=== PATIENT | female | born 1960 | race Caucasian/White ===

== ENCOUNTER 2017-04-24 11:30 | Outpatient (RCR) | payer MEDICAID, SELFPAY ==
--- NOTE | 2017-04-24 13:35 | HP.PTEVAL_ITS ---
Patient's Visit Information CASI APARICIO is a 56 year old F referred to Physical Therapy by LACEY Morales with a diagnosis of DDD, Radic and Spon L/S region. Date of Evaluation: 04/24/17 Physical Therapist: Tamika Garrido - Visit Plan Frequency: 3x /Week Duration: 4 Weeks Plan: 3X/ week for 4 weeks for core stability, LE Strengthening, functional activities, stairs, curb steps with HEP - Subjective Subjective: 2 major back surgeries since 1997. Replaced L2-L5 and then some new parts had to be redone with rods in 2014. She was hoping the 2015 surgery would make her better. She was better for about 1 month and then things started to hurt her. This was done in [facility] in [place]. Pt did her rehab at [facility] and things were going great and she was there for almost 2 months and she got home and did PT at the [facility] in [place]. Things went down hill after that .....she started with LBP all the time and then she started to have upper back and shoulder pain. Pt was living with her elderly mom and going through a divorce and thought this is it...was disgusted with herself. Her PCP sent her to Dr Gregory and they tried a series of shots on the R side at L2 and L3. She reports that they helped. They are looking to do them on the L side as well. Pt has just lost 66 pounds and wants to start walking again. She reports that she wants to build up her stomach muscles. She wants to take care of herself so she can take care of her mom. Pt also wants to build up the muscle around her back. wants her to do exercises here in the clinic and also to develop a HEP. does not want her to hurt her back. Pt reports that her leg pain comes and goes and not very often. Pt used to get odette horses and they seem to be starting up agian. Pt reports that she does not do steps because of the back. Dr wants to look at her c-spine nect. Pt next goal is to quit smoking. Sit to stand able to do without using her arms. Stairs: - Pain back Pain Intensity (Out of 10): 5 - Objective Gait: Walks with WBOS and increase veering. Poor balance. Trunk AROM: Flexion 75%, Ext to neutral, SB B 25%. LE MMT: hip flex B 4-/5, Knee ext B 4/5 , knee flex B 4-/5, hip and B 4-/5, able to do a 1/2 ROM bridge into extension. Patella DTR's 0/3 B. -SLR B. Good HS length. Stairs: up and down stairs recip with increase LOB if the railing is not used. - Goals Goal 1:: I HEP per order Goal Time Frame: 4-6 Weeks Goal 2:: Increase LE strength (hips and knees) to 4/5B Goal Time Frame: 4-6 Weeks Goal 3:: Increase Trunk AROM to 100% flex, 50% ext, SB B to 50% Goal Time Frame: 4-6 Weeks Goal 4:: Decrease pain to 2/10 with ADL's Goal 5:: Up and down stairs recip with a railing with no LOB - Rehabilitation Potential Rehabilitation Potential: Good - Anticipated Interventions Patient/Client Instruction: Educate patient on: Plan of Care For the Purpose of:: To decrease pain, To increase ROM, To improve nutrient delivery to tissue, To improve muscle performance and motor function, To improve ability to perform ADL's, To increase tolerance to activity/condition/ position, To improve performance and independence with ADL's, To improve gait and locomotor functions Therapeutic Exercise to Include: Strength training, Balance training, Body mechanics, Gait and locomotor training, Neuromotor development, Active ROM, Dynamic Lumbar Stabilization, Scapular Strength/Stabilization For the Purpose of:: To decrease pain, To decrease swelling/inflammation, To increase ROM, To improve nutrient delivery to tissue, To improve muscle performance and motor function, To improve ability to perform ADL's, To increase tolerance to activity/condition/position Cryotherapy (ice pack, ice massage): Yes Thermo therapy (hot pack): Yes For the Purpose of:: To decrease pain, To decrease swelling/inflammation, To increase ROM, To improve nutrient delivery to tissue Thank you for the opportunity to evaluate your patient. For Medicare and Medicare HMO plans, please review the plan of care and approve it. It will need to be FAXED BACK to us at [phone] for Medicare purposes. Please let me know if there are questions or concerns regarding this plan of care. Physician Signature: Date:
== END 2017-05-11 19:00 | disposition home or self-care (01) ==
LOC: PT 12:35
PROVIDERS: Family Provider Internal Medicine; PCP Internal Medicine; Visit Provider Nurse Practitioner Family
DX: M54.17 Radiculopathy, lumbosacral region (principal); M51.37 Other intervertebral disc degeneration, lumbosacral region; M47.817 Spondylosis without myelopathy or radiculopathy, lumbosacral region
CPT/HCPCS: 97110; 97161

== ENCOUNTER → 2018-01-01 09:32 | Outpatient (CLI) | payer MEDICAID, SELFPAY ==
[2018-01-01 12:04] LABS: Absolute Lymphocyte Count 2.29 X10^3/ul (0.83-4.51); Absolute Neutrophil Count 4.4 X10^3/uL (2.0-7.7); Basophil# 0.06 X10^3/uL; Basophil% 0.8 % (0-1); Eosinophil# 0.17 X10^3/uL; Eosinophils% 2.3 % (0-5); Hematocrit 42.1 % (37-47); Hemoglobin 14.4 g/dl (12.0-15.0); Lymphocyte # 2.29 X10^3/ul (4.0); Lymphocyte % 30.8 % (19-41); Mean Corp Hgb Conc 34.2 g/gl (32-36); Mean Corpuscular Volume 90.7 fL (81-99); Mean Platelet Vol. 9.9 fl (6.2-12.0); Monocyte# 0.49 X10^3/uL; Monocyte% 6.6 % (0-10); Neutrophil # 4.41 X10^3/uL (2.7-7.7); Neutrophil % 59.4 % (47-70); Platelet Count 251 K/mm3 (150-450); RBC Distribution Width CV 12.5 % (11.6-14.6); RBC Distribution Width SD 40.9 fl (35.1-43.9); Red Blood Count 4.64 M/mm3 (4.2-5.4); White Blood Count 7.4 K/mm3 (4.4-11.0)
[2018-01-01 12:09] LABS: POSITIVE COUNT NO; POSITIVE DIFFERENTIAL NO; POSITIVE MORPHOLOGY NO
[2018-01-01 12:35] LABS: Vitamin D,25 Hydroxy 20.2 ng/mL (29.95-100.01)
[2018-01-01 12:45] LABS: Anion Gap 9 (5-15); BUN 14 mg/dL (7-18); BUN/Creat Ratio 20.8 RATIO (10-20); Calcium,Total 8.7 mg/dL (8.5-10.1); Chloride 88 mmol/L (98-107); Cholesterol 224 mg/dL (200); Creatinine, Serum 0.67 mg/dL (0.55-1.02); EST Glomerular Filtration Rate 96 mL/min (>60); Est Glom Filt Rate - Afr Amer 116 mL/min (>60); Glucose 85 mg/dL (74-106); High Density Lipoprotein 46 mg/dL; Sodium Level 125 mmol/L (136-145); T4 Free Direct 1.25 ng/dL (0.76-1.46); Thyroid Stim Hormone (TSH) 0.48 uIU/mL (0.358-3.74); Triglycerides 202 mg/dL; Very Low Density Lipoprotein 40 mg/dL (5-40)
== END ==
PROVIDERS: Family Provider Internal Medicine; PCP Internal Medicine; Visit Provider Internal Medicine
DX: E87.6 Hypokalemia (principal); R53.83 Other fatigue; E78.5 Hyperlipidemia, unspecified; R68.89 Other general symptoms and signs; E55.9 Vitamin D deficiency, unspecified
CPT/HCPCS: 36415; 80048; 80061; 82306; 84439; 84443; 85025

== ENCOUNTER → 2018-01-05 12:44 | Outpatient (CLI) | payer MEDICAID, SELFPAY ==
--- NOTE | 2018-01-05 12:56 | BD_ITS ---
STUDY: DUAL ENERGY X-RAY ABSORPTIOMETRY / DXA REASON FOR EXAM: Female, 57 years old. The patient is postmenopausal. Loss of height. TECHNIQUE: Bone Mineral Density (BMD) measurements of lumbar spine and bilateral hips were obtained. COMPARISON: None. FINDINGS: Lumbar Spine (L1-L4): g/cm2 (1.352) / T-score (1.6) / Z-score (2.6) Findings are suggestive of normal bone density with a low fracture risk. Left Femur Total: g/cm2 (0.807) / T-score (-1.6) / Z-score (-0.8) Left Femoral Neck: g/cm2 (0.742) / T-score (-2.1) / Z-score (-1.0) Right Femur Total: g/cm2 (0.791) / T-score (-1.7) / Z-score (-0.9) Right Femoral Neck: g/cm2 (0.773) / T-score (-1.9) / Z-score (-0.8) BD/Dexa Bone Density Study IMPRESSION: The patient is considered osteopenic as outlined below according to World [employer] Organization (WHO) criteria with a moderate fracture risk. Reference Information: The T-score is the number of standard deviations above or below the standard which is normal for young adults at their peak bone mineral density. The World Health Organization (WHO) interprets the T-scores as follows: Above -1 Normal bone density Between -1 and -2.5 Osteopenia Equal to / or below -2.5 Osteoporosis As a practical clinical guideline, osteopenia may be graded as follows: Mild -1 through -1.5 Moderate -1.6 through -2.0 Severe -2.1 through -2.4 The Z-score is the number of standard deviations above or below age-matched controls. A Z-score of less than -1.5 would be considered abnormal. References: 1. NIH Osteoporosis and Related Bone Diseases http://www.osteo.org 2. International Society for Clinical Densitometry http://www.iscd.org 3. National Osteoporosis Foundation http://www.nof.org Electronically Signed: Kody Lakhani MD at 9:58 EDT Tel [phone], Service support ,
== END ==
PROVIDERS: Family Provider Internal Medicine; PCP Internal Medicine; Visit Provider Internal Medicine
DX: E55.9 Vitamin D deficiency, unspecified (principal); Z78.0 Asymptomatic menopausal state
CPT/HCPCS: 77080

== ENCOUNTER → 2018-01-26 13:41 | Outpatient (CLI) | payer MEDICAID, SELFPAY ==
[2018-01-26 15:56] LABS: Anion Gap 10 (5-15); BUN 19 mg/dL (7-18); BUN/Creat Ratio 26.7 RATIO (10-20); Calcium,Total 9.6 mg/dL (8.5-10.1); Chloride 92 mmol/L (98-107); Creatinine, Serum 0.71 mg/dL (0.55-1.02); EST Glomerular Filtration Rate 90 mL/min (>60); Est Glom Filt Rate - Afr Amer 109 mL/min (>60); Glucose 52 mg/dL (74-106); Sodium Level 130 mmol/L (136-145)
== END ==
PROVIDERS: Family Provider Internal Medicine; PCP Internal Medicine; Visit Provider Internal Medicine
DX: E87.1 Hypo-osmolality and hyponatremia (principal)
CPT/HCPCS: 36415; 80048

== ENCOUNTER → 2018-01-29 21:25 | Outpatient (CLI) | payer MEDICAID, SELFPAY | PROVIDERS: Family Provider Internal Medicine; PCP Internal Medicine; Visit Provider Internal Medicine | DX: G47.10 Hypersomnia, unspecified (principal); R53.83 Other fatigue | CPT/HCPCS: 95810 ==

== ENCOUNTER → 2018-01-30 11:01 | Outpatient (CLI) | payer MEDICAID, SELFPAY ==
--- NOTE | 2018-01-30 09:46 | CT_ITS ---
STUDY: LOW DOSE CT LUNG CANCER SCREENING REASON FOR EXAM: Female, 57 years old. Screening for lung cancer RADIATION DOSAGE (If Supplied By Facility): CTDIvol = ( 3.02 ) mGy, DLP = ( 102.32 ) mGycm TECHNIQUE: No contrast was administered. Low dose technique was utilized (average mAS-38 and kVp 120). 1.25 mm axial source images with a slice interval of 1.25-mm were reconstructed in lung windows. 2.5 mm axial source images with a slice interval of 2.5-mm were reconstructed in lung windows. 5.0 mm axial source images with a slice interval of 5.0-mm were reconstructed in soft tissue windows. Nodule measured using lung windows on PACS and/or independent workstation with automated measurement of minimum and maximum diameter. Nodule measurement reported as average diameter rounded to the nearest whole number. Growth is defined as an increase ins size of greater than 1.5 mm. COMPARISON: None. NODULES: Segmental atelectasis in the lung bases. There is no demonstrated pleural abnormality. Normal heart and pericardium. Normal mediastinum. Normal hilar regions. Normal unenhanced pulmonary arteries. Normal aorta arch and descending thoracic aorta. There are multi-level degenerative changes of the thoracic spine. There is no demonstrated abnormality of the visualized upper abdomen. CT/Low Dose CT Lung Screening IMPRESSION: Lung-RADS category 2. Recommendation: Routine screening CT scan in one year. IMPORTANT NOTES FOR USE: ACR Lung-RADS Version 1.0 Assessment Categories Release Date: November 07, 2013 Category: Coded 0-4 bases on nodule(s) with highest degree of suspicion. Negative screen is defined as categories 1 and 2; a positive screen is defined as categories 3 and 4. Category 3 and 4A nodules that are unchanged on interval CT should be coded as category 2, and individuals returned to screening in 12 months. Category 4X: Category 3 or 4 nodules with additional imaging findings that increase the suspicion of lung cancer, such as spiculation, GGN that doubles in size in 1 year, enlarged lymph notes, etc. Category Modifiers: S (significant finding unrelated to lung cancer) and C (prior history of treated lung cancer) may be added to the 0-4 Lung-RADS Electronically Signed: Komal Leon MD at 6:36 EDT Tel , Service support ,
== END ==
PROVIDERS: Family Provider Internal Medicine; PCP Internal Medicine; Visit Provider Internal Medicine
DX: F17.210 Nicotine dependence, cigarettes, uncomplicated (principal)
CPT/HCPCS: G0297

== ENCOUNTER → 2018-03-09 15:03 | Outpatient (CLI) | payer MEDICAID, SELFPAY ==
[2018-03-09 17:05] LABS: Anion Gap 10 (5-15); BUN 9 mg/dL (7-18); BUN/Creat Ratio 13.8 RATIO (10-20); Calcium,Total 8.8 mg/dL (8.5-10.1); Chloride 100 mmol/L (98-107); Creatinine, Serum 0.65 mg/dL (0.55-1.02); EST Glomerular Filtration Rate 99 mL/min (>60); Est Glom Filt Rate - Afr Amer 120 mL/min (>60); Glucose 95 mg/dL (74-106); Potassium 3.5 mmol/L (3.5-5.1); Sodium Level 138 mmol/L (136-145)
== END ==
PROVIDERS: Family Provider Internal Medicine; PCP Internal Medicine; Visit Provider Internal Medicine
DX: E87.1 Hypo-osmolality and hyponatremia (principal)
CPT/HCPCS: 36415; 80048

== ENCOUNTER → 2018-05-03 14:50 | Outpatient (CLI) | payer MEDICAID, SELFPAY ==
--- NOTE | 2018-05-03 14:52 | RAD_ITS ---
STUDY: X-RAY CHEST REASON FOR EXAM: Female, 57 years old. Chest pain. Cough. History of recent pneumonia. TECHNIQUE: PA and lateral views of the chest. COMPARISON: Comparison is made with prior study dated July 01, 2017. FINDINGS: Minimal degree of increased markings in the lingular segment of the left upper lobe suggests underlying atelectasis. There is no demonstrated pleural abnormality. Normal size heart. Normal mediastinum and shyla. Normal visualized pulmonary arteries. There is atherosclerotic calcification of the aortic arch with tortuosity. There are diffuse degenerative changes of the visualized thoracic spine. Normal visualized ribs, clavicles, and shoulders. There is no demonstrated abnormality of the visualized soft tissue structures of the upper abdomen. RAD/Chest PA and Lateral IMPRESSION: Mild increased markings in the lingular segment of the left upper lobe suggestive of linear atelectasis. Electronically Signed: Kody Lakhani MD at 15:34 EDT Tel [phone], Service support ,
== END ==
PROVIDERS: Family Provider Internal Medicine; PCP Internal Medicine; Referring Provider Nurse Practitioner Family; Visit Provider Nurse Practitioner Family
DX: R05 Cough (principal); R07.9 Chest pain, unspecified; Z87.01 Personal history of pneumonia (recurrent)
CPT/HCPCS: 71046

== ENCOUNTER → 2018-05-21 12:54 | Outpatient (CLI) | payer MEDICAID, SELFPAY | PROVIDERS: Family Provider Internal Medicine; PCP Internal Medicine; Referring Provider Anesthesiology Pain Medicine | DX: R69 Illness, unspecified (principal) ==

== ENCOUNTER → 2018-05-28 13:57 | Outpatient (CLI) | payer MEDICAID, SELFPAY ==
--- NOTE | 2018-05-28 13:59 | CT_ITS ---
STUDY: CT BRAIN WITHOUT CONTRAST REASON FOR EXAM: Female, 57 years old. Headache after a fall RADIATION DOSAGE (If Supplied By Facility): CTDIvol = ( 44.99 ) mGy, DLP = ( 796.11 ) mGycm TECHNIQUE: Transaxial CT imaging of the brain was performed without administration of intravenous contrast material. Individualized dose optimization techniques were used for this CT. COMPARISON: 06/29/2017 FINDINGS: Normal soft tissue structures. Normal calvarium. Normal size ventricles and extra-axial spaces for the patient's age. Normal white matter tracts of the cerebral hemispheres. Normal basal ganglia and thalami. Normal brainstem. Normal cerebellum. There is no intracranial hemorrhage. There are no findings of an acute ischemic infarction. Normal visualized paranasal sinuses. CT/Brain/Head without Contrast IMPRESSION: Normal unenhanced CT scan of the brain. Electronically Signed: Richard Gates MD at 14:34 EST , Service support ,
== END ==
PROVIDERS: Family Provider Internal Medicine; PCP Internal Medicine; Referring Provider Nurse Practitioner Family; Visit Provider Nurse Practitioner Family
DX: S00.93XA Contusion of unspecified part of head, initial encounter (principal); R40.20 Unspecified coma; W19.XXXA Unspecified fall, initial encounter; Z87.898 Personal history of other specified conditions
CPT/HCPCS: 70450

== ENCOUNTER 2018-07-18 11:53 | Emergency (ER) | payer MEDICAID, SELFPAY ==
[2018-06-16 09:25] VITALS: BMI 31.6
[2018-07-18 11:54] VITALS: BP 157/83; PULSE 73; RESP 18; TEMP 36.8; O2SAT 94; BMI 30.5
[2018-07-18 11:56] VITALS: RESP 18
--- NOTE | 2018-07-18 12:12 | ED.VISSUMM ---
- ER Visit Summary Date of Service: 07/18/18 Chief Complaint: [] Low back pain for a week after fall History of Present Illness: The patient is a 58 F [] chronic history of back pain prior lumbar back surgery currently under pain management, on controlled substances for her pain indicates she fell about a week ago landing direct in her buttock since then has had exacerbation of her chronic pain no new symptoms no signs of cauda equina no numbness weakness paresthesias no bowel or bladder complaints she indicates her [place] and other medication she is prescribed her pain management physician simply are not helping and she came in for evaluation she has no head neck chest or abdominal pain no history of kidney liver disease, she does not take nonsteroidals chronically as it causes stomach upset but she is able to take Tylenol and Toradol nonnarcotic medication Physical Examination: [] Vital signs are within normal range General, no distress resting comfortably HEENT is generally unremarkable The neck is supple no adenopathy Cardiovascular, regular rate and rhythm Lungs, clear bilateral Abdomen, soft nontender, she has a healed incision to the lumbar back she complains diffusely of lumbar back pain no bruising contusion Extremities, no clubbing cyanosis or edema Neurologic, awake alert answering questions appropriately moving all 4 extremities full range of motion no numbness weakness or paresthesias no sign of cauda equina Test Results: [] Emergency Department Course and Treatment: [] Long conversation with the patient this is an acute exacerbation of her chronic condition there are no new symptoms by her history she understands that we cannot further manage her pain with controlled substances to the emergency department, she agrees to obtain lumbar spine x-rays and she will take Toradol which she is taken in the past short-term, Tylenol Studies are unremarkable she will follow-up her pain management all other outpatient providers Treatment Plan: [] Lumbar spine x-ray showed nothing acute see those reports given all the above the plan is detailed above and she will follow-up with her physicians Disposition: [] Home stable Impression: [] Acute recurrent lumbar back pain, history of lumbar back pain prior lumbar back surgery, This note was generated with Tachyusation software. It may contain incorrect words, spelling, and punctuation that were not noted in review of the chart prior to signing ED Disposition - Plan for ED Patient: Chief Complaint: Back Referrals: Nick Lindsey MD [Primary Care Provider] -
--- NOTE | 2018-07-18 12:16 | ED.DCSUM_ITS ---
- ER Visit Summary Date of Service: 07/18/18 Chief Complaint: [] Low back pain for a week after fall History of Present Illness: The patient is a 58 F [] chronic history of back pain prior lumbar back surgery currently under pain management, on controlled substances for her pain indicates she fell about a week ago landing direct in her buttock since then has had exacerbation of her chronic pain no new symptoms no signs of cauda equina no numbness weakness paresthesias no bowel or bladder complaints she indicates her [place] and other medication she is prescribed her pain management physician simply are not helping and she came in for evaluation she has no head neck chest or abdominal pain no history of kidney liver disease, she does not take nonsteroidals chronically as it causes stomach upset but she is able to take Tylenol and Toradol nonnarcotic medication Physical Examination: [] Vital signs are within normal range General, no distress resting comfortably HEENT is generally unremarkable The neck is supple no adenopathy Cardiovascular, regular rate and rhythm Lungs, clear bilateral Abdomen, soft nontender, she has a healed incision to the lumbar back she complains diffusely of lumbar back pain no bruising contusion Extremities, no clubbing cyanosis or edema Neurologic, awake alert answering questions appropriately moving all 4 extremities full range of motion no numbness weakness or paresthesias no sign of cauda equina Test Results: [] Emergency Department Course and Treatment: [] Long conversation with the patient this is an acute exacerbation of her chronic condition there are no new sympt oms by her history she understands that we cannot further manage her pain with controlled substances to the emergency department, she agrees to obtain lumbar spine x-rays and she will take Toradol which she is taken in the past short- term, Tylenol Studies are unremarkable she will follow-up her pain management all other outpatient providers Treatment Plan: [] Lumbar spine x-ray showed nothing acute see those reports given all the above the plan is detailed above and she will follow-up with her physicians Disposition: [] Home stable Impression: [] Acute recurrent lumbar back pain, history of lumbar back pain prior lumbar back surgery, This note was generated with Incuronation software. It may contain incorrect words, spelling, and punctuation that were not noted in review of the chart prior to signing ED Disposition - Plan for ED Patient: Chief Complaint: Back Referrals: Nick Lindsey MD [Primary Care Provider] -
--- NOTE | 2018-07-18 12:16 | ED.DEP ---
ED Disposition - Plan for ED Patient: Chief Complaint: Back Instructions: ED Sprain Strain Lumbar Referrals: Nick Lindsey MD [Primary Care Provider] - Additional Instructions: Follow-up with all of her outpatient providers, follow-up with your pain management plan
[2018-07-18] MEDS: Ketorolac 60 MG/2 ML Vial IM (12:28)
[2018-07-18] MEDS: Acetaminophen 500 MG Tablet 1000 MG PO (12:29)
--- NOTE | 2018-07-18 12:30 | RAD_ITS ---
STUDY: X-RAY - LUMBAR SPINE REASON FOR EXAM: Female, 58 years old. Status post fall, history of spine surgery TECHNIQUE: 3 view(s) of the lumbar spine were obtained. COMPARISON: 02/11/2014 FINDINGS: There is straightening of the normal lumbar lordosis. There is no substantial scoliosis. There is a normal alignment of the vertebrae. Disc space narrowing at L2-L3 with endplate sclerosis is progressive since 2013. Posterior fusion hardware with bilateral pedicular screws with multilevel laminectomies with additional placement of hardware since 2013. No compression fracture is seen. There is atherosclerotic calcification of the abdominal aorta without a demonstrated aneurysm. RAD/Lumbar Spine 2 or 3 Views IMPRESSION: No demonstrated compression fracture. Degenerative and operative changes. Electronically Signed: Edwin Porras MD at 12:55 EST , Service support ,
[2018-07-18 13:49] VITALS: BP 136/77; PULSE 67; RESP 16; O2SAT 95
== END 2018-07-18 14:04 | disposition home or self-care (01) ==
PROVIDERS: Emergency Provider Emergency Medicine; Family Provider Internal Medicine; PCP Internal Medicine
DX: M54.5 Low back pain (principal); G89.29 Other chronic pain; W19.XXXA Unspecified fall, initial encounter; Y93.9 Activity, unspecified; Y92.9 Unspecified place or not applicable; Z98.890 Other specified postprocedural states; Z79.899 Other long term (current) drug therapy
CPT/HCPCS: 72100; 96372; 99284

== ENCOUNTER 2018-08-16 08:14 | Day surgery (SDC) | payer MEDICAID, SELFPAY ==
[2018-08-11 14:07] VITALS: BMI 30.5
[2018-08-16 08:47] VITALS: BP 113/76; PULSE 72; RESP 16; TEMP 36.4; O2SAT 96; BMI 28.7
[2018-08-16] MEDS: Bupivacaine 0.25% 30 ML Vial (09:46)
[2018-08-16] MEDS: MethylPREDNISolone Acetate 80 MG/ML Vial (09:46)
--- NOTE | 2018-08-16 09:50 | RAD_ITS ---
PROCEDURE: Caudal block. DATE OF EXAMINATION: August 16, 2018. INDICATION: Female, 58 years old. Chronic back pain. FLUOROSCOPY TIME (if supplied): (0:08) minutes/seconds. 2 intraoperative images were obtained. Intraoperative imaging provided for caudal block. The needle is seen along the posterior midportion of the sacrum. RAD/Fluor Guidance for Spine Inj IMPRESSION: The spinal needle is seen along the posterior midportion of the sacrum. Electronically Signed: Kody Lakhani MD at 11:23 EST , Service support ,
[2018-08-16 09:58] VITALS: BP 113/76; BP 138/68; PULSE 76; RESP 16; TEMP 36.8; O2SAT 93
[2018-08-16 10:00] VITALS: BP 113/76; BP 152/63; PULSE 75; RESP 16; O2SAT 93
[2018-08-16 10:05] VITALS: BP 113/76; BP 137/80; PULSE 75; RESP 16; O2SAT 92
[2018-08-16 10:11] VITALS: BP 113/76; BP 156/80; PULSE 72; RESP 16; TEMP 36.6; O2SAT 92
--- NOTE | 2018-08-16 11:18 | OP.PCM_ITS ---
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 (2) Degeneration of intervertebral disc of lumbosacral region Status: Chronic (3) Radiculopathy of lumbosacral region Status: Chronic Report of Operation Date of Procedure: 08/16/18 Pre-Operative Diagnosis: Lumbosacral radiculopathy, lumbosacral degenerative disc disease, lumbosacral spinal stenosis, postlaminectomy syndrome of the lumbar spine Post-Operative Diagnosis: Lumbosacral radiculopathy, lumbosacral degenerative disc disease, lumbosacral spinal stenosis, postlaminectomy syndrome of the lumbar spine Surgery/Procedure Performed:: Diagnostic/therapeutic caudal epidural steroid injection Description of Surgical Findings:: PROCEDURE: Diagnostic/therapeutic caudal epidural steroid injection PREOPERATIVE DIAGNOSIS: Lumbosacral radiculopathy, lumbosacral degenerative disc disease, lumbosacral spinal stenosis, postlaminectomy syndrome of the lumbar spine POSTOPERATIVE DIAGNOSIS: Lumbosacral radiculopathy, lumbosacral degenerative disc disease, lumbosacral spinal stenosis, postlaminectomy syndrome of the lumbar spine ANESTHESIA: MAC COMPLICATIONS: None BLOOD LOSS: Minimal PROCEDURE IN DETAIL: History and physical today was reviewed. Risks and benefits of the procedure were explained. The patient understood, agreed to our procedure, and informed consent was obtained. IV inserted per routine protocol. The patient was taken to the operating room, placed in a prone position with a pillow positioned underneath the abdomen. The lower back and tailbone area was prepped and draped in a sterile fashion using iodine x3 under fluoroscopy guidance on the lateral view the caudal space was identified the skin and subcutaneous tissue anesthetized approximately 3 cc of 1% lidocaine using a 25-gauge regular needle under direct visualization fluoroscopy in a lateral view using a 22-gauge 3-1/2 inch spinal needle the needle was advanced via the skin through the sacral hiatus tip of the needle passed through the sacrococcygeal ligament advanced approximately S4 area after negative aspiration for blood or CSF a total of 3 cc of contrast were injected to confirm correct placement of the needle as well as cephalad spread the spread was followed to approximately L5 area after confirmation of AP as well as latera l view and repeated negative aspiration a total of 15 cc of preservative-free 0.125% Marcaine with 80 mg of Depo-Medrol were injected easily. The needles were then removed intact. The patient experienced no signs or symptoms intrathecal, intravascular injection. The patient experienced no paraesthesia. The procedure was completed without any apparent difficult, any complication. The patient appeared to tolerate well. ASSESSMENT AND PLAN: This is a 58-year-old female with lumbosacral radiculopathy lumbosacral degenerative disc disease lumbosacral spinal stenosis, postlaminectomy syndrome of the lumbar spine status post diagnostic/therapeutic caudal epidural steroid injection patient would continue her current medications the patient will follow in approximately 2 weeks for possible repeat of the procedure if indicated.
== END 2018-08-16 10:41 | disposition home or self-care (01) ==
LOC: SDC 08:15 → AC 08:17
PROVIDERS: Family Provider Internal Medicine; PCP Internal Medicine; Referring Provider Anesthesiology Pain Medicine; Visit Provider Anesthesiology Pain Medicine
PROC: 3E0S3BZ Introduction of Anesthetic Agent into Epidural Space, Percutaneous Approach (ICD-10-PCS; CPT 62282; principal; 2018-08-16 09:45)
DX: M96.1 Postlaminectomy syndrome, not elsewhere classified (principal); M51.17 Intervertebral disc disorders with radiculopathy, lumbosacral region; M48.07 Spinal stenosis, lumbosacral region; M47.817 Spondylosis without myelopathy or radiculopathy, lumbosacral region; M46.96 Unspecified inflammatory spondylopathy, lumbar region; M46.1 Sacroiliitis, not elsewhere classified; M43.16 Spondylolisthesis, lumbar region; I10 Essential (primary) hypertension; J45.909 Unspecified asthma, uncomplicated; G40.909 Epilepsy, unspecified, not intractable, without status epilepticus; K21.9 Gastro-esophageal reflux disease without esophagitis; I82.0 Budd-Chiari syndrome; Z87.19 Personal history of other diseases of the digestive system; Z98.1 Arthrodesis status; Z79.891 Long term (current) use of opiate analgesic; Z79.899 Other long term (current) drug therapy; F17.210 Nicotine dependence, cigarettes, uncomplicated
CPT/HCPCS: 01992; 62323; 64483; 77003; J7120; J3490

== ENCOUNTER → 2018-10-04 13:48 | Outpatient (CLI) | payer MEDICAID, SELFPAY ==
[2018-09-29 15:37] VITALS: BMI 35.9
[2018-10-04 16:01] LABS: Anion Gap 5 (5-15); BUN 15 mg/dL (7-18); BUN/Creat Ratio 16.3 RATIO (10-20); Calcium,Total 8.8 mg/dL (8.5-10.1); Chloride 92 mmol/L (98-107); Creatinine, Serum 0.92 mg/dL (0.55-1.02); EST Glomerular Filtration Rate 67 mL/min (>60); Est Glom Filt Rate - Afr Amer 81 mL/min (>60); Glucose 79 mg/dL (74-106); Potassium 4.6 mmol/L (3.5-5.1); Sodium Level 124 mmol/L (136-145)
== END ==
PROVIDERS: Family Provider Internal Medicine; PCP Internal Medicine; Referring Provider Internal Medicine; Visit Provider Internal Medicine
DX: I10 Essential (primary) hypertension (principal)
CPT/HCPCS: 36415; 80048

== ENCOUNTER → 2018-10-05 07:38 | Outpatient (CLI) | payer MEDICAID, SELFPAY ==
[2018-09-17 10:41] VITALS: BMI 28.7
[2018-09-29 15:37] VITALS: BMI 35.9
--- NOTE | 2018-10-05 07:39 | CT_ITS ---
STUDY: CT MAXILLOFACIAL SINUSES REASON FOR EXAM: Female, 58 years old. Sinusitis RADIATION DOSAGE (If Supplied By Facility): CTDIvol = ( 33.45 ) mGy, DLP = ( 780.55 ) mGycm TECHNIQUE: The patient was scanned in a multi detector CT scanner. High resolution axial imaging was performed without the administration of intravenous contrast material. Sagittal and coronal images were reconstructed. Individualized dose optimization techniques were used for this CT. COMPARISON: None. FINDINGS: FRONTAL SINUSES: Normal aeration, without mucosal inflammatory disease. ETHMOIDAL SINUSES: Normal aeration, without mucosal inflammatory disease. MAXILLARY SINUSES: Normal aeration, without mucosal inflammatory disease. SPHENOIDAL SINUSES: Normal aeration, without mucosal inflammatory disease. There is patency of the bilateral maxillary infundibuli with normal uncinate processes, ethmoid bullae, and hiatus semilunaris. Left-sided nancy bullosa. Normal bilateral inferior turbinates. Normal midline nasal septum. There is patency of the bilateral nasal airways. The visualized osseous structures are normal. The visualized bilateral orbital contents are normal. CT/Sinus/Facial Bone IMPRESSION: No sinusitis. A left-sided nancy bullosa Electronically Signed: Sohan Tejada MD at 6:10 EDT Tel , Service support ,
== END ==
PROVIDERS: Family Provider Internal Medicine; PCP Internal Medicine; Referring Provider Otolaryngology; Visit Provider Otolaryngology
DX: J32.0 Chronic maxillary sinusitis (principal)
CPT/HCPCS: 70486

== ENCOUNTER 2018-10-20 13:30 | Outpatient (RCR) | payer MEDICAID, SELFPAY ==
[2018-09-17 10:41] VITALS: BMI 28.7
--- NOTE | 2018-09-21 12:31 | HP.PTEVAL ---
Patient's Visit Information CASI APARICIO is a 58 year old F referred to Physical Therapy by Demetrius Juárez MD with a diagnosis of LUMBAR DDD, SPONYLOSIS, ARTHROPATHY AND POST LAMI SYNDROME. Date of Evaluation: 09/21/18 Physical Therapist: Falguni Palma PT, Cert MDT - Visit Plan Frequency: 2-3x /Week Duration: 4-6 Weeks Plan: AQUATIC THERAPY FOR PAIN RELIEF, POSTURE CORRECTION/STRENGTHENING, INSTRUCTION IN APPROPRIATE BODY MECHANICS AND ACTIVITY MODIFICATIONS. DLS STARTING WITH A NEUTRAL SPINE PROGRESSING ROM TOLERATED. GRAHAM LE ROM, STRETCHING AND STRENGTHENING. HEP INSTRUCTION. 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 Disability: YES. Present symptoms: LOW BACK PAIN. GRAHAM LE PAIN TO FEET BUT NOT NUMBNESS AND TINGLING. Present since: YEARS. Pain Scale: Worst - 10/10 Least - 7/10. Currently: 03/22. Commenced as a result of: NO APPARENT REASON. Symptoms at onset: LOW BACK. Worse: EVERYTHING. Better: RESTING IN LYING ON RIGHT SIDE. Disturbed sleep: YES. Previous history/Previous treatment: LUMBAR FUSION DR. WALLACE 1998, SECOND BACK SURGERY [address] [facility] - TOOK OLD HARDWARE OUT AND FUSED FROM APPROX L1 TO L5. PHYSICAL THERAPY. PAIN MGMT - LAST INJECTION WAS LAST MONTH AND PATIENT REPORTS IT ONLY HELPED ABOUT 2 DAYS. Coughing/sneezing/straining: POSITIVE. Gait: PATIENT REPORTS IT HURTS TO WALK. STATES SHE REFUSES TO USE AN AD AT THIS TIME BECAUSE SHE FEELS THAT IS GIVING UP. Difficulty initiating urinatin: YES - FAMILY PHYSICIAN IS AWARE. Accidents: NO. Unexplained weight loss: NO. Imaging: PATIENT NOT SURE WHEN MOST RECENT. PMH/Recent major surgery: SEE BELOW. PLOF (Prior Level of Function): PATIENT REPORTS SHE WAS ABLE TO SHOWER, DRY OFF AND GO TO THE BATHROOM WITH LESS PAIN ABOUT 3 MONTHS AGO. SHE ALSO REPORTS SHE WAS WALKING BETTER IN JULY THAN SHE IS NOW. - Objective Sitting/Standing Posture: POOR. Lordosis: REDUCED. Lateral shift: NO. Relevant shift: N/A. Active Correction of posture: WORSE. Other Observations: INDEP VERY ANTALGIC GAIT INTO PT WITH SLOW GUARDED CADANCE, SHORT GRAHAM STRIDE LENGTH, INCREASED TRUNK FLEX AND PATIENT HAS TO STOP SEVERAL TIMES BEFORE MAKING IT BACK TO THE TREATMENT ROOM WHICH IS ABOUT 300 FEET FROM THE LOBBY. NO ASSISTIVE DEVICE - PATIENT REFUSING AT THIS TIME BECAUSE SHE STATES SHE DOESN'T WANT TO GIVE UP AND END UP IN A LONG-TERM. INDEP SIT TO STAND WITHOUT UE ASSIST. Motor deficit: GRAHAM LE WEAKNESS: HIPS 3+ TO 4-/5, KNEES 4-/5, ANKLES 4/5. Sensory deficit: DECREASED RIGHT LATERAL THIGH. ROM deficit: TIGHT GRAHAM HS'S, HIP FLEXORS AND GASTROC SOLEUS COMPLEX'S. Reflexes: UNABLE TO ELICIT GRAHAM LE'S. Dural Signs: POSITIVE GRAHAM LE'S. Lumbar mvmt loss: flex - MOD TO ARTHUR. ext - ARTHUR. R SG - ARTHUR. L SG - MAN. Core strength: POOR. Palpation: PATIENT IS VERY TENDER WITH LIGHT PALPATION THROUGHOUT THE ENTIRE LOWER THORACIC, LUMBAR, SACRAL, HIP AND PROXIMAL THIGH REGIONS - Goals Goal 1:: DECREASE C/O BACK AND LE SX'S. Goal Time Frame: 4-6 Weeks Goal 2:: IMPROVE PERSONAL CARE, LIFTING, WALKING, SITTING, STANDING, SLEEP, SOCIAL LIFE, TRAVELING AND HOMEMAKING FUNCTION Goal Time Frame: 4-6 Weeks Goal 3:: INSTRUCT IN PROPHYLAXIS Goal Time Frame: 4-6 Weeks - Rehabilitation Potential Rehabilitation Potential: Fair - Anticipated Interventions Patient/Client Instruction: Educate patient on: Condition, Plan of Care, Risk Factors, Benefits of Fitness Program For the Purpose of:: To improve self management Therapeutic Exercise to Include: Strength training, Body mechanics, Postural training, Gait and locomotor training, In an aquatic setting, Dynamic Lumbar Stabilization For the Purpose of:: To decrease pain, To increase ROM, To improve muscle performance and motor function, To increase tolerance to activity/condition/position, To improve ability of physical actions for home/community/work/leisure, To improve gait and locomotor functions Thank you for the opportunity to evaluate your patient. For Medicare and Medicare HMO plans, please review the plan of care and approve it. It will need to be FAXED BACK to us at [phone] for Medicare purposes. For Medicare only, by signing this I certify the plan of care. Please let me know if there are questions or concerns regarding this plan of care. Physician Signature: Date:
--- NOTE | 2018-12-20 16:42 | HP.PT.NRP ---
HP - Discharge Summary (1) - Patient Information CASI APARICIO was seen in my office for initial evaluation on 09/21/18. The following Plan of Care was established for this patient: Initial Frequency: 2-3x /Week Initial Duration: 4-6 Weeks - Anticipated Interventions Patient/Client Instruction: Educate patient on: Condition, Plan of Care, Risk Factors, Benefits of Fitness Program For the Purpose of:: To improve self management Therapeutic Exercise to Include: Strength training, Body mechanics, Postural training, Gait and locomotor training, In an aquatic setting, Dynamic Lumbar Stabilization For the Purpose of:: To decrease pain, To increase ROM, To improve muscle performance and motor function, To increase tolerance to activity/condition/position, To improve ability of physical actions for home/community/work/leisure, To improve gait and locomotor functions This patient was last seen in our office 10/20/18. Pertinent comments regarding their Physical therapy will appear below: This patient has not returned to Physical Therapy and is appropriate to return to MD for further follow-up as needed. At this point I will be discontinuing this patient from physical therapy. I would be happy to see this patient again in the future if found appropriate by the physician. Thank you! Fagluni Palma, PT, Cert MDT
== END 2018-10-20 19:00 | disposition home or self-care (01) ==
LOC: PT 13:30
PROVIDERS: Family Provider Internal Medicine; PCP Internal Medicine; Referring Provider Anesthesiology Pain Medicine; Visit Provider Anesthesiology Pain Medicine
DX: M54.17 Radiculopathy, lumbosacral region (principal); M51.37 Other intervertebral disc degeneration, lumbosacral region; M47.817 Spondylosis without myelopathy or radiculopathy, lumbosacral region; M46.96 Unspecified inflammatory spondylopathy, lumbar region; M96.1 Postlaminectomy syndrome, not elsewhere classified
CPT/HCPCS: 97113; 97162; 97530

== ENCOUNTER → 2018-11-17 | Outpatient (CLI) | payer MEDICAID, SELFPAY ==
[2018-10-15 14:56] VITALS: BMI 35.9
[2018-11-17 12:33] LABS: Anion Gap 8 (5-15); BUN 10 mg/dL (7-18); BUN/Creat Ratio 12.3 RATIO (10-20); Calcium,Total 8.9 mg/dL (8.5-10.1); Chloride 99 mmol/L (98-107); Creatinine, Serum 0.81 mg/dL (0.55-1.02); EST Glomerular Filtration Rate 77 mL/min (>60); Est Glom Filt Rate - Afr Amer 93 mL/min (>60); Glucose 132 mg/dL (74-106); Potassium 4.5 mmol/L (3.5-5.1); Sodium Level 135 mmol/L (136-145)
== END | disposition home or self-care (01) ==
LOC: BIMLAB 11:14
PROVIDERS: Family Provider Internal Medicine; PCP Internal Medicine; Visit Provider Internal Medicine
DX: E87.1 Hypo-osmolality and hyponatremia (principal)
CPT/HCPCS: 36415; 80048

== ENCOUNTER 2018-11-29 05:52 | Day surgery (SDC) | payer MEDICAID, SELFPAY ==
[2018-10-15 14:56] VITALS: BMI 35.9
[2018-11-29] VITALS (9 sets, daily range): BP systolic 90–109; BP diastolic 56–78; PULSE 64–80; RESP 16–18; TEMP 36.6–36.8; O2SAT 92–97; BMI 29.5
--- NOTE | 2018-11-29 07:30 | RAD_ITS ---
PROCEDURE: Right L3-S1 radiofrequency ablation. DATE OF EXAMINATION: November 29, 2018 INDICATION: Female, 58 years old. Chronic back pain. FLUOROSCOPY TIME (if supplied): (0:24) minutes/seconds Intraoperative imaging provided for right L3-S1 radiofrequency ablation. RAD/L/S Spine Min 4 Views IMPRESSION: Intraoperative fluoroscopy provided for right L3 S1 radiofrequency ablation. Electronically Signed: Kody Lakhani, at 10:57 EDT , Service support ,
[2018-11-29] MEDS: Bupivacaine 0.25% 30 ML Vial (07:49)
[2018-11-29] MEDS: MethylPREDNISolone Acetate 80 MG/ML Vial (07:49)
--- NOTE | 2018-11-29 08:11 | OP.PCM_ITS ---
Problem List (1) Spondylosis of lumbosacral region without myelopathy or radiculopathy Status: Chronic (2) Lumbar facet arthropathy Status: Chronic (3) Degeneration of intervertebral disc of lumbosacral region Status: Chronic Report of Operation Date of Procedure: 11/29/18 Pre-Operative Diagnosis: Lumbosacral spondylosis, lumbosacral degenerative disc disease, lumbar facet arthropathy Post-Operative Diagnosis: Lumbosacral spondylosis, lumbosacral degenerative disc disease, lumbar facet arthropathy Surgery/Procedure Performed:: Right-sided lumbar radiofrequency ablation of the medial branch at L3, L4, L5, S1 Description of Surgical Findings:: PROCEDURE: Right-sided radiofrequency ablation of the medial branch L3, L4, L5, S1 PREOPERATIVE DIAGNOSES: Lumbosacral spondylosis, lumbosacral degenerative disc disease, lumbar facet arthropathy POSTOPERATIVE DIAGNOSES: Lumbosacral spondylosis, lumbosacral degenerative disc disease, lumbar facet arthropathy ANESTHESIA: MAC COMPLICATIONS: None BLOOD LOSS: Minimal PROCEDURE IN DETAIL: History and physical today was reviewed. Risks and benefits of procedure explained. The patient understood, agreed to the procedure and informed consent was obtained. IV inserted per routine protocol. The patient was taken to the operating room, placed in the prone position with a pillow positioned underneath the abdomen. The right side of the lower back was prepped and draped in a sterile fashion using iodine x 3. Under fluoroscopy guidance, on an oblique view, the L3 through S1 vertebral bodies were visualized. The skin and subcutaneous tissue was anesthetized with approximately 10 mL of 1% lidocaine using a 25-gauge regular needle. Under direct visualization with fluoroscopy at approximately 25-degree angle, starting on the right L3, ending on the right S1 passing through the L4-L5 using a 20-gauge 15 cm with a 10 mm curved active tip radiofrequency ablation needle the needle passed through the skin. The tip of the needle was maneuvered and directed towards the superior and medial gutter of the transverse process at the vicinity of the medial branch. Once the tip of the needle was in contact with the bone, the needle pulled approximately 2 mm up the bone. The stylet of each needle was then removed. After negative aspiration of blood with CSF and confirmation of AP as well as oblique view, radiofrequency ablation probe was then inserted at each level. Impedance was then recorded at L3 to be 246, at L4 235, at L5 304, at S1 206 ohm. Motor-evoked potential was then initiated to 1.5 volt without any motor response at each corresponding level. The probe was then removed intact and a total of 6 mL preservative-free 1% lidocaine was injected in divided doses between those 4 levels after negative aspiration of blood with CSF. The radiofrequency ablation probe was then reinserted after confirmation of AP, oblique as well as lateral view. Radiofrequency ablation was then initiated to 80 degrees Celsius for 90 seconds at each level. Once concluded, the probe was then removed intact and a total of 6 mL of preservative-free 0.25% Marcaine with 40 mg Depo-Medrol was injected in divided doses between those 4 levels. The needles were then removed intact. The patient experienced no signs or symptoms of intrathecal, intravascular inj ection. The patient experienced no paraesthesia. The procedure was completed without any apparent difficulty, any complication. The patient appeared to tolerate well. Sensory as well as motor exam was unchanged from prior to procedure. ASSESSMENT AND PLAN: This is a 58-year-old Female with lumbosacral spondylosis, lumbosacral degenerative disc disease, lumbar facet arthropathy, status post right-sided radiofrequency ablation of the medial branch L3 through S1. The patient will continue her current medications. The patient will follow up in approximately 2 weeks for reevaluation.
== END 2018-11-29 09:08 | disposition home or self-care (01) ==
LOC: SDC 05:53 → AC 05:54
PROVIDERS: Family Provider Internal Medicine; PCP Internal Medicine; Referring Provider Anesthesiology Pain Medicine; Visit Provider Anesthesiology Pain Medicine
PROC: (CPT 64635; principal; 2018-11-29 07:15)
DX: M47.817 Spondylosis without myelopathy or radiculopathy, lumbosacral region (principal); M51.37 Other intervertebral disc degeneration, lumbosacral region; M46.96 Unspecified inflammatory spondylopathy, lumbar region; K21.9 Gastro-esophageal reflux disease without esophagitis; Z79.899 Other long term (current) drug therapy; I10 Essential (primary) hypertension; E78.5 Hyperlipidemia, unspecified; G40.909 Epilepsy, unspecified, not intractable, without status epilepticus; I82.0 Budd-Chiari syndrome; F17.210 Nicotine dependence, cigarettes, uncomplicated; Z79.891 Long term (current) use of opiate analgesic
CPT/HCPCS: 01936; 64635; 64636 ×3; 72110; 76000; J7120

== ENCOUNTER 2019-01-10 07:43 | Day surgery (SDC) | payer MEDICAID, SELFPAY ==
[2018-11-29 06:22] VITALS: BMI 29.5
[2019-01-10] VITALS (7 sets, daily range): BP systolic 128–150; BP diastolic 86–97; PULSE 71–94; RESP 16–18; TEMP 36.6; O2SAT 96–97; BMI 28.7
--- NOTE | 2019-01-10 09:10 | RAD_ITS ---
PROCEDURE: Lumbar facet joint block. DATE OF EXAMINATION: January 10, 2019. Left L3-S1 facet joint block. INDICATION: Female, 58 years old. Chronic low back pain. FLUOROSCOPY TIME (if supplied): (0:15) minutes/seconds. 4 intraoperative images were provided. RAD/L/S Spine Min 4 Views IMPRESSION: Intraoperative imaging provided for left L3-S1 facet joint block. Electronically Signed: Kody Lakhani, at 15:09 EDT , Service support ,
[2019-01-10] MEDS: Bupivacaine 0.25% 30 ML Vial (09:12)
[2019-01-10] MEDS: MethylPREDNISolone Acetate 80 MG/ML Vial (09:12)
--- NOTE | 2019-01-10 09:39 | OP.PCM_ITS ---
Problem List (1) Degeneration of intervertebral disc of lumbosacral region Status: Chronic (2) Spondylosis of lumbosacral region without myelopathy or radiculopathy Status: Chronic Report of Operation Date of Procedure: 01/10/19 Pre-Operative Diagnosis: Lumbosacral spondylosis, lumbosacral degenerative disc disease, lumbar facet arthropathy Post-Operative Diagnosis: Lumbosacral spondylosis, lumbosacral degenerative disc disease, lumbar facet arthropathy Surgery/Procedure Performed:: Left-sided lumbar facet steroid injection L3, L4, L5, S1 Description of Surgical Findings:: PROCEDURE: Left-sided lumbar facet steroid injection L3, L4, L5, S1 PREOPERATIVE DIAGNOSIS: Lumbosacral spondylosis, lumbosacral degenerative disc disease, and lumbar facet arthropathy POSTOPERATIVE DIAGNOSIS: Lumbosacral spondylosis, lumbosacral degenerative disc disease, and lumbar facet arthropathy ANESTHESIA: MAC COMPLICATIONS: None BLOOD LOSS: Minimal PROCEDURE IN DETAIL: History and physical today was reviewed. Risks and benefits of the procedure were explained. The patient understood, agreed to our procedure, and informed consent was obtained. IV inserted per routine protocol. The patient was taken to the operating room, placed in a prone position with a pillow positioned underneath the abdomen. The left side of the lower back was prepped and draped in a sterile fashion using iodine x3. Under fluoroscopy guidance, on AP view, L3 through S1 vertebral bodies were visualized. Skin and subcutaneous tissues were anesthetized with approximately 5 mL of 1% lidocaine using a 25-gauge regular needle. Under direct visualization with fluoroscopy at approximately 25-degree angle, starting on the left L3, ending on the left S1, passing through the L4-L5 using a 22-gauge 3 1/2-inch spinal needle, the needle was advanced via the skin. The tip of the needle was maneuvered and directed towards the superior and medial gutter of the transverse process at the vicinity of the medial branch. Once the tip of the needle was in contact with the bone, the needle pulled approximately 2 mm off the bone. After negative aspiration of blood with CSF and confirmation of AP as well as oblique view, a total of 8 mL of preservative-free 0.25% Marcaine with 80 mg of Depo- Medrol was injection in divided doses between those 4 levels. The needles were then removed intact. The patient experienced no signs or symptoms intrathecal, intravascular injection. The patient experienced no paraesthesia. The procedure was completed without any apparent difficult, any complication. The patient appeared to tolerate well. ASSESSMENT AND PLAN: This is a 58-year-old female with lumbosacral spondylosis, lumbosacral degenerative disc disease, and lumbar facet arthropathy, status post left-sided lumbar facet steroid injection L3 through S1. The patient will continue her current medications. The patient will follow in approximately 2 weeks for reevaluation.
== END 2019-01-10 10:35 | disposition home or self-care (01) ==
LOC: SDC 07:44 → AC 07:45
PROVIDERS: Family Provider Internal Medicine; PCP Internal Medicine; Referring Provider Anesthesiology Pain Medicine; Visit Provider Anesthesiology Pain Medicine
PROC: 3E0T3BZ Introduction of Anesthetic Agent into Peripheral Nerves and Plexi, Percutaneous Approach (ICD-10-PCS; CPT 64493; principal; 2019-01-10 09:05)
DX: M47.817 Spondylosis without myelopathy or radiculopathy, lumbosacral region (principal); M51.17 Intervertebral disc disorders with radiculopathy, lumbosacral region; M46.96 Unspecified inflammatory spondylopathy, lumbar region; M96.1 Postlaminectomy syndrome, not elsewhere classified; M43.16 Spondylolisthesis, lumbar region; M46.1 Sacroiliitis, not elsewhere classified; I82.0 Budd-Chiari syndrome; E78.00 Pure hypercholesterolemia, unspecified; I10 Essential (primary) hypertension; K21.9 Gastro-esophageal reflux disease without esophagitis; G40.909 Epilepsy, unspecified, not intractable, without status epilepticus; Z98.1 Arthrodesis status; Z79.899 Other long term (current) drug therapy; Z79.891 Long term (current) use of opiate analgesic; F17.210 Nicotine dependence, cigarettes, uncomplicated
CPT/HCPCS: 64493; 64494; 64495; 64483; 72110; J7120

== ENCOUNTER 2019-02-28 08:06 | Day surgery (SDC) | payer MEDICAID, SELFPAY ==
[2019-02-02 13:44] VITALS: BMI 28.7
[2019-02-28 08:26] VITALS: BP 149/79; PULSE 72; RESP 18; TEMP 36.8; O2SAT 95; BMI 29.7
--- NOTE | 2019-02-28 09:33 | RAD_ITS ---
STUDY: X-RAY - LUMBAR SPINE REASON FOR EXAM: Female, 58 years old. Intraoperative digital documentation images of radiofrequency ablation from L3 to S1. TECHNIQUE: 8 intraoperative digital documentation view(s) of the lumbar spine were obtained. COMPARISON: December 11, 2018 FINDINGS: 39.6 seconds of fluoroscopy time were utilized for a dose of 11.15 mGy. 8 intraoperative digital documentation images show posterior fusion from L3 to S1. Multiple needles are noted. RAD/L/S Spine Min 4 Views IMPRESSION: Intraoperative digital documentation images as described. Electronically Signed: Isrrael Parkinson MD at 10:46 EDT , Service support ,
[2019-02-28] MEDS: MethylPREDNISolone Acetate 80 MG/ML Vial (09:35)
[2019-02-28] MEDS: Bupivacaine 0.25% 30 ML Vial (09:35)
[2019-02-28 09:52] VITALS: BP 136/83; BP 149/79; PULSE 74; RESP 16; TEMP 36.4; O2SAT 97
[2019-02-28 09:57] VITALS: BP 128/91; BP 149/79; PULSE 72; RESP 16; O2SAT 97
[2019-02-28 10:02] VITALS: BP 140/85; BP 149/79; PULSE 69; RESP 16; O2SAT 98
[2019-02-28 10:08] VITALS: BP 149/79; BP 152/86; PULSE 68; RESP 16; TEMP 36.5; O2SAT 96
[2019-02-28 10:15] VITALS: BP 149/79
--- NOTE | 2019-02-28 17:27 | OP.PCM_ITS ---
Problem List (1) Degeneration of intervertebral disc of lumbosacral region Status: Chronic (2) Lumbar facet arthropathy Status: Chronic (3) Spondylosis of lumbosacral region without myelopathy or radiculopathy Status: Chronic Report of Operation Date of Procedure: 02/28/19 Description of Surgical Findings:: PROCEDURE: Left-sided lumbar radiofrequency ablation of the medial branch L3, L4, L5, S1 PREOPERATIVE DIAGNOSES: Lumbosacral spondylosis, lumbosacral degenerative disc disease, lumbar facet arthropathy POSTOPERATIVE DIAGNOSES: Lumbosacral spondylosis, lumbosacral degenerative disc disease, lumbar facet arthropathy ANESTHESIA: MAC COMPLICATIONS: None BLOOD LOSS: Minimal PROCEDURE IN DETAIL: History and physical today was reviewed. Risks and benefits of procedure explained. The patient understood, agreed to the procedure and informed consent was obtained. IV inserted per routine protocol. The patient was taken to the operating room, placed in the prone position with a pillow positioned underneath the abdomen. The left side of the lower back was prepped and draped in a sterile fashion using iodine x 3. Under fluoroscopy guidance, on an oblique view, the L3 through S1 vertebral bodies were visualized. The skin and subcutaneous tissue was anesthetized with approximately 10 mL of 1% lidocaine using a 25-gauge regular needle. Under direct visualization with fluoroscopy at approximately 25-degree angle, starting on the left L3, ending on the left S1 passing through the L4-L5 using a 20-gauge 15 cm with a 10 mm curved active tip radiofrequency ablation needle the needle passed through the skin. The tip of the needle was maneuvered and directed towards the superior and medial gutter of the transverse process at the vicinity of the medial branch. Once the tip of the needle was in contact with the bone, the needle pulled approximately 2 mm up the bone. The stylet of each needle was then removed. After negative aspiration of blood with CSF and confirmation of AP as well as oblique view, radiofrequency ablation probe was then inserted at each level. Impedance was then recorded at L3 to be 293, at L4 220, at L5 228, at S1 307 ohm. Motor-evoked po tential was then initiated to 1.5 volt without any motor response at each corresponding level. The probe was then removed intact and a total of 6 mL preservative-free 1% lidocaine was injected in divided doses between those 4 levels after negative aspiration of blood with CSF. The radiofrequency ablation probe was then reinserted after confirmation of AP, oblique as well as lateral view. Radiofrequency ablation was then initiated to 80 degrees Celsius for 90 seconds at each level. Once concluded, the probe was then removed intact and a total of 6 mL of preservative-free 0.25% Marcaine with 40 mg Depo-Medrol was injected in divided doses between those 4 levels. The needles were then removed intact. The patient experienced no signs or symptoms of intrathecal, intravascular injection. The patient experienced no paraesthesia. The procedure was completed without any apparent difficulty, any complication. The patient appeared to tolerate well. Sensory as well as motor exam was unchanged from prior to procedure. ASSESSMENT AND PLAN: This is a 58-year-old female with lumbosacral spondylosis, lumbosacral degenerative disc disease, lumbar facet arthropathy, status post left-sided radiofrequency ablation of the medial branch L3 through S1. The patient will continue her current medications. The patient will follow up in approximately 2 weeks for reevaluation.
== END 2019-02-28 10:26 | disposition home or self-care (01) ==
LOC: SDC 08:07 → AC 08:07
PROVIDERS: Family Provider Internal Medicine; PCP Internal Medicine; Referring Provider Anesthesiology Pain Medicine; Visit Provider Anesthesiology Pain Medicine
PROC: (CPT 64635; principal; 2019-02-28 09:25)
DX: M47.817 Spondylosis without myelopathy or radiculopathy, lumbosacral region (principal); M51.37 Other intervertebral disc degeneration, lumbosacral region; M46.96 Unspecified inflammatory spondylopathy, lumbar region; M54.17 Radiculopathy, lumbosacral region; M96.1 Postlaminectomy syndrome, not elsewhere classified; M43.16 Spondylolisthesis, lumbar region; M46.1 Sacroiliitis, not elsewhere classified; I82.0 Budd-Chiari syndrome; I10 Essential (primary) hypertension; K21.9 Gastro-esophageal reflux disease without esophagitis; G40.909 Epilepsy, unspecified, not intractable, without status epilepticus; Z87.19 Personal history of other diseases of the digestive system; Z98.1 Arthrodesis status; Z79.891 Long term (current) use of opiate analgesic; Z79.899 Other long term (current) drug therapy; F17.210 Nicotine dependence, cigarettes, uncomplicated
CPT/HCPCS: 01992; 64635; 64636 ×3; 72110; 76000; J7120

== ENCOUNTER → 2019-03-25 15:02 | Outpatient (CLI) | payer MEDICAID, SELFPAY ==
[2019-03-25 14:11] VITALS: BMI 28.7
--- NOTE | 2019-03-25 15:05 | RAD_ITS ---
STUDY: X-RAY - PELVIS AND RIGHT HIP REASON FOR EXAM: Female, 58 years old. Right hip pain TECHNIQUE: 3 views of the pelvis and hip. COMPARISON: None. FINDINGS: There is a non-specific bowel gas pattern. Normal visualized soft tissue structures. Normal bilateral iliac wings, sacroiliac joints and visualized sacrum. Normal bilateral superior and inferior pubic rami. Normal pubic symphysis. Normal bilateral ischial tuberosities. Post surgical changes status post multilevel laminectomy Normal visualized femoral head. Normal acetabulum. Normal hip joint. RAD/HIP, UNI W/ Pelvis 2-3 Views IMPRESSION: No evidence for acute fracture of the hip or other significant bony pathology Electronically Signed: Demetrius Bruno MD at 22:47 EDT , Service support ,
== END ==
PROVIDERS: Family Provider Internal Medicine; PCP Internal Medicine; Referring Provider Internal Medicine; Visit Provider Internal Medicine
DX: M25.551 Pain in right hip (principal)
CPT/HCPCS: 73502

== ENCOUNTER 2019-04-19 10:30 | Outpatient (RCR) | payer MEDICAID, SELFPAY ==
[2019-03-25 14:11] VITALS: BMI 28.7
--- NOTE | 2019-03-31 15:57 | HP.OTEVAL_ITS ---
Patient's Visit Information CASI APARICIO is a 58 year old F, referred to Occupational Therapy by LACEY Heck, with a diagnosis of carpal tunnel. Date of Evaluation: 03/31/19 Occupational Therapist: Margot Guido - Subjective Subjective: Pt seen for initial occupational therapy evaluation for bilateral hand carpal tunnel syndrome. Pt states slowly over time increased pain bilateral hands over past year. States R hand has more pain than her L and she is R hand domient. Pt states occassional tingling in bilateral hands. She has to have her mother assist her with squeezing toothpaste containers and opening jars secondary to pain and weakness to open containers. States completes BADLS/IADLs with assist from mother, pt has had 2 back sx with increased back pain limiting her indep w/ BADL/IADL tasks also. - Pain R hand/wrist 7 L hand/wrist 5 - Objective Objective/Observation: increased pain bilateral hands - ROM Wrist: R 65/45, L 55/60 ROM Comments: bilateral digits WFL, no concerns with ROM digits - Strength Machine Printer Hose: R 15#, L 8# Lateral Pinch: R 2#, L 0# Tripod Pinch: R 1#, L 0# - Edema Other: No Edema - Sensation Sensation Comments: Occassional numbness and tingling - Quick DASH-Disab of Arm,Shoulder& Hand Quick DASH Score: 65.9075 - Goals Goal:: Pt will progress w/ bilateral oracle soa architect strength by 10# to assist w/ opening all containers independenently by d/c from OT. Pt will progress w/ L hand lateral pinch by 2# to assist w/ meal prep tasks independently. Goal:: Pt will progress w/ bilateral wrist flexion by 10' to assist w/ BADL tasks. Goal:: Pt will demo no pain greater than 1/10 with movement bilateral wrist by d/c from OT services Goal:: Pt will be educated on joint protection/energy conservation with good understanding and demo 100%x Goal:: Pt will be educated on bilateral hand HEP with good understanding and demo 100%x - Rehabilitation General Assessment: Pt seen for initial occupational therapy evaluation for bilateral hand carpal tunnel syndrome. Pt states slowly over time increased pain bilateral hands over past year. States R hand has more pain than her L and she is R hand domient. Pt states occassional tingling in bilateral hands all indicating a need for skilled OT interventions to increase BUE oracle soa architect/pinch strength, decrease pain, increase stefanie wrist fleixon and educate on HEP and joint protection to increase pts quality of life 1-2x/wk x 4-6wks Rehabilitation Potential: Good - Anticipated Interventions Anticipated Interventions: A/AAROM/PROM, Strengthening, Edema Control, Massage, Modalities, Joint Protection/Energy Conservation, Fine Motor Coord/Yobani, ADL Training, Education re assistive Equipment, Education re Diagnosis, Education re Self Massage Techniques, Home Program - Visit Plan Frequency: 1-2x /Week Duration: 4-6 Weeks General Plan: increase BUE oracle soa architect/pinch strength, decrease pain, increase stefanie wrist fleixon and educate on HEP and joint protection to increase pts quality of life 1-2x/wk x 4-6wks TEXT: Thank you for the opportunity to evaluate your patient. For Medicare and Medicare HMO plans, please review the plan of care and approve it. It will need to be FAXED BACK to us at [phone] for Medicare purposes. Please let me know if there are questions or concerns regarding this plan of care. Physician Signature: Date:
--- NOTE | 2019-04-28 14:24 | HP.OT.NRP ---
HP - Discharge Summary - Patient Information CASI APARICIO was seen in my office for initial evaluation on 03/31/19. The following Plan of Care was established for this patient: Initial Frequency: 1-2x /Week Initial Duration: 4-6 Weeks Plan: cont w/ prior POC, pt to have PT eval for cervical spine pain tomorrow. - Anticipated Interventions Anticipated Interventions: A/AAROM/PROM, Strengthening, Edema Control, Massage, Modalities, Joint Protection/Energy Conservation, Fine Motor Coord/Yobani, ADL Training, Education re assistive Equipment, Education re Diagnosis, Education re Self Massage Techniques, Home Program This patient was last seen in our office 04/19/19. Pertinent comments regarding their Occupational therapy will appear below: Pt has made limited progress with OT goals, continues to have increased pain bilateral wrists at rest and with movement. Have educated pt on stretches and exercises to complete at home, pt continues to have pain with all movements. Pt demo increased pain with ultrasounds to bilateral wrists. Rec return to dr secondary to limited progress with OT and no change in pain. Pt planning to complete PT evaluation to address cervical spine. D/C OT POC. Pt agrees with therapist on d/c from OT serivces. At this point I will be discontinuing this patient from occupational therapy. I would be happy to see this patient again in the future if found appropriate by the physician. Thank you! Margot Guido
== END 2019-04-19 19:00 | disposition home or self-care (01) ==
LOC: OT 10:30
PROVIDERS: Family Provider Internal Medicine; PCP Internal Medicine; Referring Provider Nurse Practitioner Family; Visit Provider Nurse Practitioner Family
DX: M48.02 Spinal stenosis, cervical region (principal); G56.00 Carpal tunnel syndrome, unspecified upper limb
CPT/HCPCS: 97035; 97140; 97165; 97166; 97530

== ENCOUNTER 2019-05-05 11:25 | Outpatient (RCR) | payer MEDICAID, SELFPAY ==
[2019-04-22 13:19] VITALS: BMI 28.8
--- NOTE | 2019-05-05 12:26 | HP.PTEVAL_ITS ---
Patient's Visit Information CASI APARICIO is a 58 year old F referred to Physical Therapy by Nick Lindsey MD with a diagnosis of CERVICAL STENOSIS. Date of Evaluation: 05/05/19 Physical Therapist: Falguni Palma PT, Cert MDT - Visit Plan Frequency: 2-3x /Week Duration: 4-6 Weeks Plan: CERVICAL STM, US, POSTURE CORRECTION/STRENGTHENING, INSTRUCTION IN APPROPRIATE BODY MECHANICS AND ACTIVITY MODIFICATIONS. GRAHAM UE ROM, STRETCHING AND STRENGTHENING. HEP INSTRUCTION. 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 Disability: NO. Present symptoms: NECK PAIN LEFT > RIGHT. LUMP THAT COMES AND GOES ON LEFT NECK. PAIN UP BACK OF SKULL AT TIMES. INTERMITTENT PAIN AND TINGLING INTO HANDS AND FINGERS GRAHAM. Present since: YEARS. Pain Scale: Worst - 10/10 Least - 2/10. Currently: 08/22. Commenced as a result of: NO APPARENT REASON. Symptoms at onset: LEFT NECK. Worse: I REALLY DON'T KNOW. Better: ICE. Disturbed sleep: YES. Previous history/Previous treatment: UNREMARKABLE. NO ROBERTO'S. NO NECK SURGERY. NO PHYSICAL THERAPY. NO CHIROPRACTOR. Dizziness: NO. Tinnitis: NO. Nausea: NO. Shortness of Breath: NO. Difficulty Swollowing: NO. Accidents: NO. Unexplained weight loss: NO. Imaging: CT OF NECK ABOUT 3 YEARS AGO APPEARD NORMAL - SEE [facility] EMR. PMH/Recent major surgery: CHRONIC LOW BACK PROBLEMS WITH 2 BACK SURGERIES 1998, 2014. H/O SEIZURES, H/O MIGRAINES, HTN. OTHER: PATIENT REPORTS SHE IS NOT UNDER ANY DOCTOR RESTRICTIONS THEY JUST TELL ME TO DO WHAT I CAN. - Objective Sitting Posture/Standing Posture: POOR. VERY SLOUCHED. FORWARD HEAD. ROUNDED SHOULDERS. NO TORTICOLLIS. Active Correction of posture: NE. Other Observations: INDEP SLOW ANTALGIC GAIT. NO ASSISTIVE DEVICES OR LOB. Motor deficit: GRAHAM UE STRENGTH GROSSLY 4-5/5 - PAIN LIMITED DUE TO BACK PAIN PER PATIENT REPORT. RIGHT HANDED. RIGHT PROSTHETIC TECHNICIAN 20 LBS, LEFT PROSTHETIC TECHNICIAN 25 LBS. Sensory deficit: GRAHAM UE LIGHT TOUCH SENSATION INTACT AND SYMMETRICAL WITH TESTING TODAY. ROM deficit: GRAHAM UE'S WFL. Reflexes: 1/2 GRAHAM UE'S. Dural Signs: NEGATIVE GRAHAM UES. Cervical Mvmt Loss: Flex: NIL - INCREASES C/O GRAHAM NECK PAIN. Pro: NIL - INCREASES C/O GRAHAM NECK PAIN. Ext: MOD TO ARTHUR - INCREASES C/O GRAHAM NECK PAIN. Ret: ARTHUR - INCREASES C/O GRAHAM NECK PAIN. RSB: NIL - INCREASES LEFT NECK PAIN. LSB: MOD - INCREASES LEFT NECK PAIN. R Rot: NIL - INCREASES LEFT NECK PAIN. L Rot: MIN TO MOD - INCREASES LEFT NECK PAIN AND PROVOKES BRIEF EPISODE OF DIZZINESS. Postural strength: POOR. Palpation: PATIENT HAS GRAHAM UPPER TRAP, POSTERIOR CERVICAL, OCCIPUT AND SPINE TENDERNESS WITH LIGHT PALPATION. GRAHAM SHOULDERS AND CLAVICAL'S ARE NOT ACUTELY TENDER. - Goals Goal 1:: DECREASE C/O NECK PAIN and GRAHAM UE SX'S. Goal Time Frame: 4-6 Weeks Goal 2:: IMPROVE PERSONAL CARE, LIFTING, READING, SLEEP, WORK, DRIVING AND RECREATIONAL FUNCTION Goal Time Frame: 4-6 Weeks Goal 3:: INSTRUCT IN PROPHYLAXIS Goal Time Frame: 4-6 Weeks - Rehabilitation Potential Rehabilitation Potential: Fair - Anticipated Interventions Patient/Client Instruction: Educate patient on: Condition, Plan of Care, Risk Factors, Benefits of Fitness Program For the Purpose of:: To improve self management Therapeutic Exercise to Include: Strength training, Body mechanics, Postural training, Flexibilty training, Active ROM, Scapular Strength/Stabilization For the Purpose of:: To decrease pain, To increase ROM, To improve muscle performance and motor function, To increase tolerance to activity/condition/position, To improve ability of physical actions for home/community/work/leisure Manual Therapy Techniques to Include: Soft tissue mobilization For the Purpose of:: To decrease pain, To improve nutrient delivery to tissue Ultrasound (thermal/non thermal): Yes For the Purpose of:: To decrease pain, To improve nutrient delivery to tissue Thank you for the opportunity to evaluate your patient. For Medicare and Medicare HMO plans, please review the plan of care and approve it. It will need to be FAXED BACK to us at [phone] for Medicare purposes. For Medicare only, by signing this I certify the plan of care. Please let me know if there are questions or concerns regarding this plan of care. Physician Signature: Date:
--- NOTE | 2019-05-23 15:15 | HP.PT.NRP ---
HP - Discharge Summary (1) - Patient Information CASI APARICIO was seen in my office for initial evaluation on 05/05/19. The following Plan of Care was established for this patient: Initial Frequency: 2-3x /Week Initial Duration: 4-6 Weeks - Anticipated Interventions Patient/Client Instruction: Educate patient on: Condition, Plan of Care, Risk Factors, Benefits of Fitness Program For the Purpose of:: To improve self management Therapeutic Exercise to Include: Strength training, Body mechanics, Postural training, Flexibilty training, Active ROM, Scapular Strength/Stabilization For the Purpose of:: To decrease pain, To increase ROM, To improve muscle performance and motor function, To increase tolerance to activity/condition/position, To improve ability of physical actions for home/community/work/leisure Manual Therapy Techniques to Include: Soft tissue mobilization For the Purpose of:: To decrease pain, To improve nutrient delivery to tissue Ultrasound (thermal/non thermal): Yes For the Purpose of:: To decrease pain, To improve nutrient delivery to tissue This patient was last seen in our office . Pertinent comments regarding their Physical therapy will appear below: This patient has not returned to Physical Therapy and is appropriate to return to MD for further follow-up as needed. At this point I will be discontinuing this patient from physical therapy. I would be happy to see this patient again in the future if found appropriate by the physician. Thank you! Falguni Palma PT, Cert MDT
== END 2019-05-05 19:00 | disposition home or self-care (01) ==
LOC: PT 11:25
PROVIDERS: Family Provider Internal Medicine; PCP Internal Medicine; Visit Provider Internal Medicine
DX: M25.551 Pain in right hip (principal); M48.02 Spinal stenosis, cervical region; G56.00 Carpal tunnel syndrome, unspecified upper limb
CPT/HCPCS: 97162; 97530

== ENCOUNTER → 2019-06-23 08:28 | Outpatient (CLI) | payer MEDICAID, SELFPAY ==
[2019-04-22 13:19] VITALS: BMI 28.8
== END ==
PROVIDERS: Family Provider Internal Medicine; PCP Internal Medicine; Referring Provider Anesthesiology Pain Medicine; Visit Provider Anesthesiology Pain Medicine
DX: M54.17 Radiculopathy, lumbosacral region (principal); M51.37 Other intervertebral disc degeneration, lumbosacral region; Z53.9 Procedure and treatment not carried out, unspecified reason

== ENCOUNTER 2019-07-18 08:47 | Day surgery (SDC) | payer MEDICAID, SELFPAY ==
[2019-04-22 13:19] VITALS: BMI 28.8
[2019-07-18 09:08] VITALS: BP 111/59; PULSE 84; RESP 15; TEMP 36.5; O2SAT 98; BMI 31.1
[2019-07-18] MEDS: Lactated Ringers 1,000 ML 100 ML IV (09:25)
--- NOTE | 2019-07-18 10:41 | RAD_ITS ---
PROCEDURE: Caudal block. DATE OF EXAMINATION: July 18, 2019. INDICATION: Female, 59 years old. Chronic low back pain. FLUOROSCOPY TIME (if supplied): (8 seconds) minutes/seconds Intraoperative imaging provided for caudal block. RAD/Fluor Guidance for Spine Inj IMPRESSION: Intraoperative imaging provided for caudal block. Electronically Signed: Kody Lakhani, at 14:57 EST , Service support ,
[2019-07-18] MEDS: Bupivacaine 0.25% 30 ML Vial (10:44)
[2019-07-18] MEDS: MethylPREDNISolone Acetate 80 MG/ML Vial (10:44)
[2019-07-18] MEDS: 0.9% Normal Saline (Pres. free 10 ML Vial (10:45)
[2019-07-18 10:51] VITALS: BP 111/59; BP 97/63; PULSE 69; RESP 24; TEMP 37.1; O2SAT 98
[2019-07-18 11:00] VITALS: BP 111/59; BP 80/55; PULSE 72; RESP 18; O2SAT 95
[2019-07-18 11:05] VITALS: BP 111/59; BP 91/67; PULSE 74; RESP 18; O2SAT 95
[2019-07-18 11:10] VITALS: BP 101/68; BP 111/59; PULSE 76; RESP 18; TEMP 36.2; O2SAT 96
--- NOTE | 2019-07-18 11:18 | PCM.OPRPT ---
Report of Operation Date of Procedure: 07/18/19 Description of Surgical Findings:: PREOPERATIVE DIAGNOSIS: Lumbosacral radiculopathy, lumbosacral degenerative disc disease, lumbosacral spinal stenosis, postlaminectomy syndrome of the lumbar spine POSTOPERATIVE DIAGNOSIS: Lumbosacral radiculopathy, lumbosacral degenerative disc disease, lumbosacral spinal stenosis, postlaminectomy syndrome of the lumbar spine PROCEDURE PERFORMED: caudal epidural steroid injection. ANESTHESIA: MAC. BLOOD LOSS: Minimal. COMPLICATIONS: None. DESCRIPTION OF PROCEDURE: History and physical of today was reviewed. Risks and benefits of the procedure were explained. The patient understood and agreed to proceed. Informed consent was obtained. IV inserted per routine protocol. The patient was taken to the operating room and placed in the prone position with a pillow positioned underneath the abdomen. The lower back and tailbone area was prepped and draped in a sterile fashion using iodine x3. Under fluoroscopy guidance on a lateral view, the caudal space was identified. The skin and subcutaneous tissue was anesthetized with approximately 3 mL of 1% lidocaine using a 25-gauge regular needle. Under direct visualization with fluoroscopy, using a 22-gauge 3-1/2-inch spinal needle, the needle was advanced via the skin through the sacral hiatus. The tip of the needle was passed through the sacrococcygeal ligament and advanced to approximately S4 area. After negative aspiration of blood or CSF, a total of 3 mL of contrast was injected to confirm correct placement of the needle as well as cephalad spread. The spread was followed to approximately L5 area. After confirmation on AP as well as lateral view and repeated negative aspiration, a total of 15 mL of preservative-free 0.125% Marcaine with 80 mg of Depo-Medrol was injected easily. The needle was then removed intact. The patient experienced no sign or symptoms of intrathecal or intravascular injection. The patient experienced no paresthesia. The procedure was completed without any apparent difficulty or any complications. The patient appeared to tolerate it well. ASSESSMENT AND PLAN: This is a 59-year-old female with lumbosacral radiculopathy, lumbosacral degenerative disc disease, lumbosacral spinal stenosis, postlaminectomy syndrome of the lumbar spine status post caudal epidural steroid injection patient will continue her current medications patient found approximately 2 weeks for reevaluation.
[2019-07-18 11:28] VITALS: BP 111/59
== END 2019-07-18 11:30 | disposition home or self-care (01) ==
LOC: SDC 08:49 → AC 08:51
PROVIDERS: Family Provider Internal Medicine; PCP Internal Medicine; Referring Provider Anesthesiology Pain Medicine; Visit Provider Anesthesiology Pain Medicine
PROC: 3E0S3BZ Introduction of Anesthetic Agent into Epidural Space, Percutaneous Approach (ICD-10-PCS; CPT 62282; principal; 2019-07-18 10:30)
DX: M51.17 Intervertebral disc disorders with radiculopathy, lumbosacral region (principal); M48.07 Spinal stenosis, lumbosacral region; M47.27 Other spondylosis with radiculopathy, lumbosacral region; M46.1 Sacroiliitis, not elsewhere classified; M79.10 Myalgia, unspecified site; M96.1 Postlaminectomy syndrome, not elsewhere classified; I10 Essential (primary) hypertension; E78.5 Hyperlipidemia, unspecified; K21.9 Gastro-esophageal reflux disease without esophagitis; E55.9 Vitamin D deficiency, unspecified; F17.200 Nicotine dependence, unspecified, uncomplicated; Z79.899 Other long term (current) drug therapy; Z79.891 Long term (current) use of opiate analgesic
CPT/HCPCS: 62323; 64483; 77003; J7120; J3490

== ENCOUNTER 2019-12-26 05:55 | Day surgery (SDC) | payer MEDICAID, SELFPAY ==
[2019-12-26] VITALS (8 sets, daily range): BP systolic 105–147; BP diastolic 61–78; PULSE 63–71; RESP 16; TEMP 36.6–37; O2SAT 93–98; BMI 32.3
[2019-12-26] MEDS: Lactated Ringers 1,000 ML 100 ML IV (06:36)
--- NOTE | 2019-12-26 07:30 | RAD_ITS ---
PROCEDURE: Right L3-S1 radiofrequency ablation. DATE OF EXAMINATION: December 26, 2019. INDICATION: Female, 59 years old. Low back pain. FLUOROSCOPY TIME (if supplied): (21.2 seconds) minutes/seconds. 7 intraoperative views were obtained. RAD/L/S Spine Min 4 Views IMPRESSION: Intraoperative imaging provided for right L3-S1 radiofrequency ablation. Electronically Signed: Kody Lakhani, at 13:54 EDT , Service support ,
[2019-12-26] MEDS: Bupivacaine 0.25% 30 ML Vial (07:46)
[2019-12-26] MEDS: MethylPREDNISolone Acetate 80 MG/ML Vial (07:46)
--- NOTE | 2019-12-26 09:10 | PCM.OPRPT ---
Report of Operation Date of Procedure: 12/26/19 Description of Surgical Findings:: PREOPERATIVE DIAGNOSIS: Lumbosacral spondylosis, lumbosacral degenerative disc disease, lumbar facet arthropathy POSTOPERATIVE DIAGNOSIS: Lumbosacral spondylosis, lumbosacral degenerative disc disease, lumbar facet arthropathy PROCEDURE PERFORMED: Right-sided radiofrequency ablation of the medial branch at L3, L4, L5, and S1. ANESTHESIA: MAC. BLOOD LOSS: Minimal. COMPLICATIONS: None. DESCRIPTION OF PROCEDURE: History and physical of today was reviewed. Risks and benefits of the procedure were explained. The patient understood and agreed to proceed. Informed consent was obtained. IV inserted per routine protocol. The patient was taken to the operating room and placed in the prone position with a pillow positioned underneath the abdomen. The Right side of her lower back was prepped and draped in a sterile fashion using iodine x3. Under fluoroscopy guidance in an oblique view, the L3 through S1 vertebral bodies were visualized. The skin and subcutaneous tissue was anesthetized with approximately 10 mL of 1% lidocaine using a 25-gauge regular needle. Under direct visualization on fluoroscopy at approximately 25-degree angle, starting on the Right L3, ending on the Right S1, passing through the L4 and L5, using a 20-gauge 15-cm with a 10-mm curved active-tip radiofrequency ablation needle, the needle was passed through the skin. The tip of the needle was maneuvered and directed towards the superior medial gutter of the transverse process at the vicinity of the medial branch. Once the tip of the needle was in contact with the bone, the needle was pulled approximately 2 mm off the bone. The stylette of each needle was then removed. After negative aspiration of blood or CSF and confirmation on AP, oblique as well as lateral view, the radiofrequency ablation probe was then inserted at each level. Impedance was then recorded at L3 to be 253 ohm, at L4 to be 271 ohm, at L5 to be 299 ohm, and at S1 to be 315 ohm. Motor evoked potential was then initiated to 1.5 volt without any motor response at each corresponding level. The probe was then removed intact and a total of 6 mL of preservative-free 1% lidocaine was injected in divided doses between those four levels after negative aspiration of blood or CSF. The radiofrequency ablation probe was then reinserted. After confirmation on AP, oblique as well as lateral view, radiofrequency ablation was then initiated to 80 degree Celsius for 90 second at each level. Once concluded, the probe was then removed intact. A total of 6 mL of preservative-free 0.25% Marcaine with 40 mg of Depo-Medrol was injected in divided doses between those four levels. The needles were then removed intact. The patient experienced no sign or symptoms of intrathecal or intravascular injection. The patient experienced no paresthesia. The procedure was completed without any apparent difficulty or any complications. The patient appeared to tolerate it well. Sensory as well as motor exam was unchanged from prior to the procedure. ASSESSMENT AND PLAN: This is a 59-year-old female with lumbosacral spondylosis, lumbosacral degenerative disc disease, lumbar facet arthropathy status post right-sided lumbar radiofrequency ablation of the medial branch L3-S1, patient will continue her current medications, patient will follow approximately 2 weeks for reevaluation.
== END 2019-12-26 08:48 | disposition home or self-care (01) ==
LOC: SDC 05:57 → AC 05:57
PROVIDERS: PCP Internal Medicine; Referring Provider Anesthesiology Pain Medicine; Visit Provider Anesthesiology Pain Medicine
PROC: (CPT 64635; principal; 2019-12-26 07:15)
DX: M47.27 Other spondylosis with radiculopathy, lumbosacral region (principal); M51.37 Other intervertebral disc degeneration, lumbosacral region; M43.16 Spondylolisthesis, lumbar region; M46.96 Unspecified inflammatory spondylopathy, lumbar region; M46.1 Sacroiliitis, not elsewhere classified; M96.1 Postlaminectomy syndrome, not elsewhere classified; I10 Essential (primary) hypertension; E78.5 Hyperlipidemia, unspecified; E55.9 Vitamin D deficiency, unspecified; K21.9 Gastro-esophageal reflux disease without esophagitis; F32.9 Major depressive disorder, single episode, unspecified; Z78.0 Asymptomatic menopausal state; Z79.891 Long term (current) use of opiate analgesic
CPT/HCPCS: 64635; 64636 ×2; 72110; 76000; J7120

== ENCOUNTER 2020-01-10 18:06 | Inpatient (IN) | payer MEDICAID, SELFPAY ==
[2019-12-26 06:20] VITALS: BMI 32.3
[2020-01-10] VITALS (15 sets, daily range): BP systolic 95–151; BP diastolic 33–133; PULSE 71–84; RESP 12–24; TEMP 36.6–36.8; O2SAT 94–100; BMI 32.9; BMI 31.0; BMI 30.9
--- NOTE | 2020-01-10 18:34 | CT_ITS ---
STUDY: CT BRAIN WITHOUT CONTRAST REASON FOR EXAM: Female, 59 years old. FALL WITH HEAD TRAUMA, FELL LAST NIGHT AT 1900 AND JUST CALLED 911 TODAY, HX SZ, ASTHMA,BACK SX RADIATION DOSAGE (If Supplied By Facility): CTDIvol = ( 44.99 ) mGy, DLP = ( 1828.44 ) mGycm TECHNIQUE: Transaxial CT imaging of the brain was performed without administration of intravenous contrast material. Individualized dose optimization techniques were used for this CT. COMPARISON: May 28, 2018. FINDINGS: Normal soft tissue structures. Normal calvarium. Normal size ventricles and extra-axial spaces for the patient''s age. Normal white matter tracts of the cerebral hemispheres. Normal basal ganglia and thalami. Normal brainstem. Normal cerebellum. There is no intracranial hemorrhage. There are no findings of an acute ischemic infarction. Posttraumatic deformity of the distal nasal bones There is minor mucosal thickening of the ethmoid air cells No significant change since prior exam CT/Brain/Head without Contrast IMPRESSION: No acute abnormalities. Specifically no evidence for acute intracranial bleed Posttraumatic deformity of the distal nasal bones which is new finding since prior study. However the bony fragments appear sclerotic suggesting chronic injury. Clinical correlation recommended Electronically Signed: Demetrius Bruno MD at 19:36 EDT , Service support ,
--- NOTE | 2020-01-10 18:35 | EKG12_ITS ---
Test Reason : FALL Blood Pressure : / mmHG Vent. Rate : 080 BPM Atrial Rate : 080 BPM P-R Int : 176 ms QRS Dur : 088 ms QT Int : 404 ms P-R-T Axes : 066 004 084 degrees QTc Int : 465 ms Normal sinus rhythm Inferior-posterior infarct , age undetermined Abnormal ECG Confirmed by GENESIS PEREZ ([id number]), industrial editor TONYA BOLANOS ([id number]) on 01/12/2020 11:46:32 AM Referred By: HARJEET Confirmed By:GENESIS PEREZ
--- NOTE | 2020-01-10 18:37 | CT_ITS ---
STUDY: CT CERVICAL SPINE WITHOUT CONTRAST REASON FOR EXAM: Female, 59 years old. FALL WITH HEAD TRAUMA, FELL LAST NIGHT AROUND 1900 AND CALLED 911 TODAY, HX SZ, BACK SX,HYSTERECTOMY RADIATION DOSAGE (If Supplied By Facility): CTDIvol = ( 23.77 ) mGy, DLP = ( 535.74 ) mGycm TECHNIQUE: High resolution transaxial imaging was performed without contrast material. Sagittal and coronal images were reconstructed. Individualized dose optimization techniques were used for this CT. COMPARISON: March 31, 2016 FINDINGS: Normal craniovertebral junction. Normal anterior atlantoaxial articulation. Normal odontoid process. Normal cervical lordosis. Normal vertebral bodies and posterior osseous elements. C2-3: Normal endplates. Normal disc height and morphology. Normal central canal and intervertebral neuroforamina. C3-4: Normal endplates. Normal disc height and morphology. Normal central canal and intervertebral neuroforamina. C4-5: Mild endplate spurring. Normal disc height and morphology. Normal central canal and intervertebral neuroforamina. C5-6: Minor endplate spurring.. Normal disc height and tiny central disc osteophyte protrusion.. Mild narrowing the central canal. Normal bilateral neuroforamina C6-7: Normal endplates. Normal disc height and morphology. Normal central canal. Mild right neural foraminal encroachment secondary to bony hypertrophy C7-T1: Normal endplates. Normal disc height and morphology. Normal central canal and intervertebral neuroforamina. Normal visualized soft tissue structures. Degenerative changes have progressed since previous study CT/Spine Cervical without Contras IMPRESSION: No acute fracture or subluxation. Mild spondylosis most pronounced at C5-6. Electronically Signed: Demetrius Bruno MD at 19:39 EDT , Service support ,
--- NOTE | 2020-01-10 18:39 | ED.VISSUMM ---
- ER Visit Summary Date of Service: 01/10/20 Chief Complaint: Fall with facial trauma and right ankle injury History of Present Illness: The patient is a 59 F has medical history of hypertension, asthma chronic pain. Patient states last night she fell at home injuring her right ankle she try to get up multiple times and kept falling and hitting her face. She believes she broke her nose because it was bleeding. She is pretty confident she broke her right ankle. No prior history of each. She denies being on blood thinners. She lives alone at home. She thinks she fell sometime around 9 PM but knows it was before midnight. Physical Examination: Middle-aged female vital signs stable. She is afebrile. HEENT exam pupils are reactive light. She has bruising around both her eyes consistent with a raccoon sign. She has deformity and tenderness to her nose with dried blood consistent with a nasal fracture. She has no upper dentition she has several lower dentition. They are intact. Dry mucous membranes. Scalp nontender. C-spine not specifically tender. Trachea midline. Lungs clear to auscultation. Heart regular rhythm no murmur rate about 80. Chest wall nontender. Abdomen soft nontender. Pelvic girdle intact. She is moving both upper extremities she has normal 5-5 credit operations specialist strength nontender no deformity. Her right lower leg is swollen black and blue. She has an obvious right ankle fracture. She does have a DP pulse. She is able to wiggle her toes is normal touch sensation. There is an abrasion on the medial right ankle that there may not be an open fracture. Will clean out off and get a better look at it. Left lower extremity nontender normal range of motion. Normal dorsi plantarflexion. Neurologically she is awake and alert. No focal motor deficits. Test Results: CT brain shows no acute abnormality. No intracranial bleed. Read by the radiologist and reviewed by me CT C-spine shows no acute fracture. February reviewed by me Ankle x-ray shows acute bimalleolar ankle fracture with dislocation. Tib-fib x-ray 2 views shows the bimalleolar fracture. And dislocation. Chest x-ray shows chronic changes with some atelectasis. One-view portable. CBC shows white count 12.6. Hemoglobin 13. No bands. Chemistries chloride 113. CO2 of 20. She has dehydration and acute kidney injury with a BUN 72 creatinine 2.2. Her CPK was elevated 3063 consistent with early rhabdomyolysis Emergency Department Course and Treatment: Patient will need a significant work-up. CAT scan of her head neck to facial trauma. IV fluids due to dehydration and laying down for probably 20+ hours. Rule out rhabdomyolysis. Screening labs. X-rays for the lower leg for an ankle fracture. She will need admitted and orthopedic consultation. She will be treated with a liter of normal saline and morphine and Zofran. Treatment Plan: Follow-up test results were discussed with the patient. She was consciously sedated using propofol [address] Irineo Garner. I then manually reduced the right ankle fracture dislocation. She was placed in a well-padded short leg splint with a sugar tong reinforcement mediolaterally. Patient tolerated procedure well. Immediately woke up. Vital signs stayed stable the entire time. She is doing well post sedation. Post reduction I do feel a DP pulse in the right foot. Post reduction right ankle x-ray is much improved. 2 views read by myself. Disposition: Admission. I spoke to the hospitalist and Dr. Yared Blair about orthopedic referral and he will referred to the civil drafter in their group. Impression: Multiple falls Closed head injury Nasal fracture Acute right ankle bimalleolar fracture and dislocation Sedation with propofol Fracture and dislocation reduction by ER Posterior short leg splint with sugar tong reinforcement by ER Acute kidney injury Acute early rhabdomyolysis Acute dehydration This note was generated with [employer] dictation software. It may contain incorrect words, spelling, and punctuation that were not noted in review of the chart prior to signing ED Disposition - Plan for ED Patient: Referrals: Marlen Lucia MD [Primary Care Provider] -
[2020-01-10] MEDS: morphine 8 MG/ML Syringe IV (18:44)
[2020-01-10] MEDS: 0.9% Normal Saline 1,000 ML 999 ML IV (18:45)
[2020-01-10] MEDS: Ondansetron 4 MG/2 ML Vial IV (18:45)
[2020-01-10 19:02] LABS: Absolute Lymphocyte Count 1.43 X10^3/uL (0.83-4.51); Absolute Neutrophil Count 9.7 X10^3/uL (2.0-7.7); Basophil# 0.03 X10^3/uL; Basophil% 0.2 % (0-1); Hematocrit 41.7 % (37-47); Hemoglobin 13.7 g/dL (12.0-15.0); Lymphocyte # 1.43 X10^3/ul (4.0); Lymphocyte % 11.4 % (19-41); Mean Corp Hgb Conc 32.9 g/dL (32-36); Mean Corpuscular Hgb 28.6 pg (27.0-32.0); Mean Corpuscular Volume 87.1 fL (81-99); Mean Platelet Vol. 11.1 fl (6.2-12.0); Monocyte# 1.34 X10^3/uL; Monocyte% 10.7 % (0-10); NRBC Flagged by Analyzer 0 % (0-5); Neutrophil # 9.67 X10^3/uL (2.7-7.7); Neutrophil % 77.1 % (47-70); Platelet Count 252 K/mm3 (150-450); RBC Distribution Width CV 13.8 % (11.6-14.6); Red Blood Count 4.79 M/mm3 (4.2-5.4); White Blood Count 12.6 K/mm3 (4.4-11.0)
[2020-01-10 19:17] LABS: Anion Gap 10 (5-15); BUN 72 mg/dL (7-18); BUN/Creat Ratio 32.7 RATIO (10-20); Calcium,Total 9.2 mg/dL (8.5-10.1); Chloride 113 mmol/L (98-107); EST Glomerular Filtration Rate 24 mL/min (>60); Est Glom Filt Rate - Afr Amer 29 mL/min (>60); Estimated Creatinine Clearance 25.78 ml/min; Glucose 116 mg/dL (74-106); Potassium 4.1 mmol/L (3.5-5.1); Sodium Level 143 mmol/L (136-145)
--- NOTE | 2020-01-10 19:20 | RAD_ITS ---
STUDY: X-RAY - RIGHT ANKLE REASON FOR EXAM: Female, 59 years old. Fall yesterday. Rt ankle pain TECHNIQUE: 2 view(s) of the ankle. COMPARISON: None. FINDINGS: There is an acute spiral fracture of the distal third of the fibular shaft with overlapping and medial angulation of fracture fragments. There is also a chip fracture of the distal fibular plafond separation of fracture fragments.. There is also an intra-articular fracture of the distal tibia with mild separation of fracture fragments and associated dislocated medial malleolus with medial displacement of the distal tibia with respect to the talus. Normal visualized talus and calcaneus. The visualized subtalar, talonavicular, calcaneocuboid and tarsal articulations are normal. Diffuse bimalleolar soft tissue swelling is noted RAD/Ankle min 3 Views IMPRESSION: Acute bimalleolar fracture with associated dislocation of the medial malleolus. Electronically Signed: Demetrius Bruno MD at 20:06 EDT , Service support ,
--- NOTE | 2020-01-10 19:20 | RAD_ITS ---
STUDY: X-RAY - RIGHT TIBIA AND FIBULA REASON FOR EXAM: Female, 59 years old. fall yesterday. Rt lower extremity pain. TECHNIQUE: 3 view(s) of the tibia and fibula were obtained. COMPARISON: None. FINDINGS: There are acute bimalleolar fractures with dislocation of the tibiotalar joint as described in the report for the ankle.. The more proximal tibia and fibula are within normal limits The soft tissue structures are unremarkable. RAD/Tibia & Fibula 2 Views IMPRESSION: Distal tibial and fibular fractures Electronically Signed: Demetrius Bruno MD at 20:04 EDT , Service support ,
--- NOTE | 2020-01-10 19:20 | RAD_ITS ---
STUDY: X-RAY CHEST REASON FOR EXAM: Female, 59 years old. fall yesterday. Rt lower extremity pain. TECHNIQUE: PA COMPARISON: May 03, 2018 FINDINGS: There is mild discoid atelectasis in left lower lobe.. There is no demonstrated pleural abnormality. Normal size heart. Normal mediastinum and shyla. Normal visualized pulmonary arteries. Normal visualized aortic arch and descending thoracic aorta. Dorsal spine demonstrates degenerative change.. Normal visualized ribs, clavicles, and shoulders. There is no demonstrated abnormality of the visualized soft tissue structures of the upper abdomen. RAD/Chest 1 View (Portable) IMPRESSION: Mild discoid atelectasis in left lower lobe Electronically Signed: Demetrius Bruno MD at 20:05 EDT , Service support ,
[2020-01-10 19:35] LABS: CPK Total, Creatine Kinase 3063 U/L (26-192)
[2020-01-10] MEDS: morphine 8 MG/ML Syringe 6 MG IV (19:49)
[2020-01-10] MEDS: Propofol 200 MG/20 ML Vial 40 MG IV BOLUS (20:07)
--- NOTE | 2020-01-10 20:22 | HP.PCM_ITS ---
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 (3) Degeneration of intervertebral disc of lumbosacral region Status: Chronic (4) Radiculopathy of lumbosacral region Status: Chronic (5) Spondylosis of lumbosacral region without myelopathy or radiculopathy Status: Chronic (6) Lumbar facet arthropathy Status: Chronic (7) Mouth sores Status: Inactive (8) Headache Status: Chronic (9) Rosacea Status: Chronic (10) Chronic sinusitis Status: Chronic (11) URI (upper respiratory infection) Status: Inactive (12) Osteopenia Status: Chronic (13) Smoking greater than 40 pack years Status: Chronic (14) Congestion of nasal sinus Status: Chronic (15) Hypersomnolence Status: Chronic (16) Hyponatremia Status: Inactive (17) Fatigue Status: Chronic (18) Neuropathy Status: Chronic (19) Vitamin D deficiency Status: Chronic (20) History of seizures Status: Chronic (21) History of pneumonia Status: Inactive (22) Asthma Status: Chronic (23) Seasonal allergies Status: Chronic (24) Femoral acetabular impingement Status: Suspected (25) Hypokalemia Status: Inactive (26) Community acquired pneumonia Status: Inactive (27) Hyperlipidemia Status: Inactive (28) Seizure disorder Status: Chronic (29) Right hip pain Status: Chronic (30) Hypertension Status: Chronic (31) Chronic back pain Status: Chronic (32) Drug overdose Status: Ruled-out (33) Unresponsiveness Status: Inactive (34) Acute respiratory failure Status: Inactive (35) Seizures Status: Chronic (36) Bimalleolar fracture Status: Inactive (37) Bimalleolar fracture of right ankle Status: Acute History of Present Illness Date of Admission: 01/10/20 Chief Complaint: Fall and right ankle pain The patient is a 59 year old F with a significant history of neuropathy; asthma; hypersomnolence; drug overdose: tobacco abuse; vitamin D deficiency; and seizures who presents to the emergency department with a fall. Her fall occ urred a day before presentation. She reports slipping and falling. She sustained pain at the right ankle; back of her head and her back. Following the fall she tried to get up and she had multiple other falls. She had a bleeding from her face. She laid on the floor for a while. At the emergency department a CPK was elevated. Her creatinine was also elevated. Emergent department doctor reported discussed the case with Dr. Dr. Blair orthopedic surgeon. Emergent department doctor reported that per Dr. Blair director child abuse therapy in Dr. Blair's group will see patient. Past Medical History Past Medical History (Chronic Problems): Chronic Problems (Last Reviewed 01/10/20 @ 21:[address] 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) Degeneration of intervertebral disc of lumbosacral region (Chronic) Radiculopathy of lumbosacral region (Chronic) Spondylosis of lumbosacral region without myelopathy or radiculopathy (Chronic) Lumbar facet arthropathy (Chronic) Headache (Chronic) Rosacea (Chronic) Chronic sinusitis (Chronic) Osteopenia (Chronic) Smoking greater than 40 pack years (Chronic) Congestion of nasal sinus (Chronic) Hypersomnolence (Chronic) Fatigue (Chronic) Neuropathy (Chronic) Vitamin D deficiency (Chronic) History of seizures (Chronic) Asthma (Chronic) Seasonal allergies (Chronic) Seizure disorder (Chronic) Right hip pain (Chronic) Hypertension (Chronic) Chronic back pain (Chronic) Seizures (Chronic) Medical History: Medical History (Last Reviewed 01/10/20 @ 21:[address] Quang Mcfarlane MD) Neuropathy (Chronic) G62.9 Vitamin D deficiency (Chronic) E55.9 History of seizures (Acute) Z87.898 History of pneumonia (Acute) Z87.01 Asthma (Chronic) J45.909 Seasonal allergies (Chronic) J30.2 Allergies Penicillins Allergy (Severe, Verified 01/10/20 18:20) vomiting aspirin Adverse Reaction (Verified 01/10/20 18:20) Upset Stomach HX OF ULCERS Home Medications: Ambulatory Orders Medication Instructions Recorded Albuterol Inhaler [Ventolin Hfa] 2 puff INHALATION Q4H PRN PRN 06/29/17 baclofen 20 mg tablet 20 mg PO TID PRN #90 tab 10/28/18 Buprenorphine 7.5 mcg TD TU 11/29/18 duloxetine 30 mg capsule,delayed 30 mg PO BID 02/02/19 release pregabalin 100 mg capsule 100 mg PO TID 03/25/19 Escitalopram Oxalate [Lexapro] 20 mg PO DAILY 12/22/19 Fenofibrate Nanocrystallized 48 mg PO DAILY 12/22/19 [Tricor] Montelukast [Singulair] 10 mg PO QHS 12/22/19 Pravastatin Sodium 20 mg PO DAILY 12/22/19 Topiramate [Topamax] 50 mg PO QHS 12/22/19 Lisinopril 11 tab PO DAILY 01/10/20 Omeprazole 1 tab PO DAILY 01/10/20 Surgical History: Surgical History (Last Reviewed 01/10/20 @ 21:[address] 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 Quang Mcfarlane MD) Mother Breast cancer Hypertension Hyperlipemia Cancer ulcers Father Diabetes Myocardial infarction, Onset Age: 67 Hypertension Depression Sister Depression Hyperlipemia History Items: Hypertension Paternal Family History: Family History (Last Reviewed 01/10/20 @ 21:[address] Quang Mcfarlane MD) Mother Breast cancer Hypertension Hyperlipemia Cancer ulcers Father Diabetes Myocardial infarction, Onset Age: 67 Hypertension Depression Sister Depression Hyperlipemia History Items: No pertinent history Review of Systems Constitutional: Denies: Chills, Fever, Weight Change HEENT: Denies: Head Aches, Sinus Congestion, Sinus Drainage Cardiovascular: Denies: Chest Pain, Palpitations Respiratory: Denies: Cough, Shortness of breath at rest, Sputum production Gastrointestinal: Denies: Abdominal Pain, Nausea, Vomiting Genitourinary: Denies: Dysuria Musculoskeletal: Reports: Back Pain, Joint Pain, Joint Tenderness Skin: Denies: Rash, Wounds Neurological: Denies: Numbness, Tingling, Focal weakness Psychiatric: Denies: Anxiety, Depression, Homicidal Ideations, Suicidal Ideations Hematologic/ Lymphatic: Denies: Easy Bruising, Easy Bleeding VTE Information - Inpt Only VTE Present on Admission: No VTE Mechan Device Prophylaxis: SCD's VTE Pharm Prophylaxis ordered?: No Patient Problems: Active and Suspected Problems (Last Reviewed 01/10/20 @ 21:[address] Quang Mcfarlane MD) Bimalleolar fracture of right ankle (Acute) Bimalleolar fracture of right ankle (Acute) - Physical Exam Vitals/I&O's: Vital Signs Temp Pulse Resp BP Pulse Ox 97.8 F 71 17 123/110 H 97 01/10/20 18:07 01/10/20 20:09 01/10/20 20:09 01/10/20 20:09 01/10/20 20:09 Oxygen Flow Rate (L/min) 4 Oxygen Delivery Method Nasal Cannula Weight: 92.5 kg Body Mass Index (BMI) 32.9 Intake and Output for Last 24 Hours 01/08/20 01/09/20 01/10/20 23:59 23:59 23:59 Intake Total 999 / 999 Balance 1000 / 999 General: Alert, Oriented x3, Cooperative HEENT: Atraumatic, PERRLA, EOMI, Normocephalic Neck: Supple, No JVD, Negative Carotid Bruits Lungs: Clear to auscultation, Normal air movement, No rhonchi, No wheeze, No rales Cardiovascular: Regular rate, Regular Rhythm, Normal S1, Normal S2, No murmurs Abdomen: Bowel Sounds Present, Soft, Non Tender Extremities: Cool - Left foot, Diminished Peripheral Pulses - Left foot, Tenderness - Right knee Skin: Ulcer/ Wound - Multiple ulcers on bilateral knee and bilateral manuel, - - Right leg and right foot in a splint. Musculoskeletal: No Tenderness to Palpation of Joints or Extremities - Right knee, Tenderness - Right knee Neurological: Cranial nerves II-XII grossly intact Psych/Mental Status: Normal Affect, Appropriate Laboratory Results 01/10/20 18:35: Sodium 143, Potassium 4.1, Chloride 113 H, Carbon Dioxide 20.0 L , Anion Gap 10, BUN 72 H, Creatinine 2.20 H, Estim Creat Clear Calc 25.78, Est GFR (MDRD) Af Amer 29 L, Est GFR (MDRD) Non-Af 24 L, BUN/Creatinine Ratio 32.7 H , Glucose 116 H, Calcium 9.2 01/10/20 18:35: Total Creatine Kinase 3063 H 01/10/20 18:55: WBC 12.6 H, RBC 4.79, Hgb 13.7, Hct 41.7, MCV 87.1, MCH 28.6, MCHC 32.9, RDW Std Deviation 43.0, RDW Coeff of Dyana 13.8, Plt Count 252, MPV 11.1, Immature Gran % (Auto) 0.600, Neut % (Auto) 77.1 H, Lymph % (Auto) 11.4 L, Guthrie % (Auto) 10.7 H, Eos % (Auto) 0.0, Baso % (Auto) 0.2, Absolute Neuts (auto) 9.7 H, Absolute Lymphs (auto) 1.43, Nucleated RBC % 0 Assessment/Plan All Active Problems (Last Reviewed 01/10/20 @ 21:[address] Quang Mcfarlane MD) Bimalleolar fracture of right ankle (Acute) Bimalleolar fracture of right ankle (Acute) Drug overdose (Ruled-out) Morbid obesity (Resolved) Pericardial effusion (Resolved) The patient is a 59 year old F with a significant history of neuropathy; asthma; hypersomnolence; drug overdose: tobacco abuse; vitamin D deficiency; and seizures who presents to the emergency department with repeated falls and was found to have right bimalleolar ankle fractures as well as nasal bone deformity Bone deformity/fragments Acute right bimalleolar ankle fracture. Pain control with PRN morphine and oxycodone. Bowel protocol in antiemetics PRN. Trend CBC Order PT/INR No weightbearing to right lower extremity. Dr. Blair orthopedic consulted from ED. Per ED doctor a director child abuse therapy in orthopedic group will see patient. Per ACS NSQIP surgical risk calculator: Risk of serious post-op complication is above average. Risk of any complication is above average. Cardiac complication is below average. Surgical site infection and urinary tract infection is above average. Readmission rate is above average. Return to the OR is above average. Discharged to nursing or rehab facility is above average. Nasal bone deformity Patient may follow-up outpatient. ABRAM Creatinine on presentation was 2.20 Review of old records shows creatinine baseline of less than 1. BUN is 72 BUN over creatinine is 32.7 Likely Prerenal and intrinsic renal from dehydration and rhabdomyolysis. IV hydration. Avoid nephrotoxins. Hold home lisinopril. Trend BMP. Rhabdomyolysis Review of imaging department labs showed CPK of 3063. IV hydration as above. Trend CPK. Hypertension Her blood pressure is stable at this point we have some marginal blood pressures. Lowest systolic so far is 95; the lowest diastolic is 33.. Hold home blood pressure medications. Trend blood pressures. Nasal bone fractures Consider discussing case with orofacial surgeon. Patient may also follow-up outpatient. Chronic pain:on buprenorphine. Hold buprenorphine in the setting of a given as needed morphine. Lyrica continued. Baclofen continued. Asthma: Singulair continued Depression/anxiety: Cymbalta and Lexapro continued Seizure disorder: Topamax continued. Triglyceridemia: On fenofibrate. Hold secondary to ABRAM. Multiple Falls: Get vitamin D and vitamin B12 Probable PAD: Left foot cool and with no palpable pulses. MARLENE ordered. DVT prophylaxis No chemical chemoprophylaxis in view of recent fall with multiple fractures. SCD to left lower extremities. Inpatient E&M: 94022 Init Hosp L3
--- NOTE | 2020-01-10 20:33 | RAD_ITS ---
STUDY: X-RAY - RIGHT ANKLE REASON FOR EXAM: Female, 59 years old. post reduction of Rt ankle TECHNIQUE: 3 view(s) of the ankle. COMPARISON: January 10, 2020 FINDINGS: Status post reduction and casting of distal fibular fracture with minor separation of fracture fragments.. Subluxed medial tibiotalar joint in association with transversely oriented fracture of the distal tibial plafond with separation of fracture fragments RAD/Ankle min 3 Views IMPRESSION: Spiral fracture of the distal fibular shaft with minor separation of fracture fragments. Persistent subluxation of the medial tibiotalar joint and transversely oriented fracture of the tibial plafond with separation of fracture fragments status post closed reduction and casting Electronically Signed: Demetrius Bruno MD at 20:52 EDT , Service support ,
--- NOTE | 2020-01-10 21:14 | NURSING ---
yolis sister notified of pt being admitted.
--- NOTE | 2020-01-10 21:14 | NURSING ---
SISTER WORRIED THAT SHE IS UNABLE TO TAKE CARE OF HERSELF. SOCIAL SERVICE CONSULTED
--- NOTE | 2020-01-10 21:59 | ART_ITS ---
Reason For Study: Cold extremities, No Palpable pulses Procedure A bilateral lower extremity continuous wave Doppler with analog waveform analysis and ankle brachial indexes. Left Segmental Pressures Left posterior tibial artery = 125mmHg. Left dorsalis pedis artery = 112mmHg. Right Segmental Pressures Right brachial= 125mmHg. Indices The left ankle brachial index by the posterior tibial artery is 1.00. The left ankle brachial index by the dorsalis pedis is 0.90. Interpretation Summary Normal left ankle-brachial indices at rest with triphasic Doppler waveforms identified. Digital volume pulse recording absolutely flat possible consistent with severe temperature effect or distal small vessel disease. Clinical correlation would be appropriate. Ordering Physician: Quang Mcfarlane Referring Physician: Marlen Lucia Performed By: Natalie Negrete RDCS/RVT
[2020-01-10] MEDS: 0.9% Normal Saline 1,000 ML 150 ML IV (22:32)
[2020-01-10] MEDS: oxyCODONE 5 MG Tablet PO (22:32)
[2020-01-10] MEDS: Pravastatin 20 MG Tablet PO (23:13)
[2020-01-10] MEDS: DULoxetine Hcl 30 MG Capsule PO (23:13)
[2020-01-10] MEDS: Montelukast 10 MG Tablet PO (23:14)
[2020-01-10] MEDS: Pregabalin 50 MG Capsule 100 MG PO (23:15)
[2020-01-10] MEDS: Topiramate 50 MG Tablet PO (23:16)
[2020-01-11] VITALS (18 sets, daily range): BP systolic 89–127; BP diastolic 47–77; PULSE 63–92; RESP 8–20; TEMP 36.2–36.7; O2SAT 93–98; BMI 30.9
--- NOTE | 2020-01-11 03:10 | RAD_ITS ---
STUDY: X-RAY - RIGHT ANKLE REASON FOR EXAM: Female, 59 years old. POST OP CLOSED REDUCTION W/EXTERNAL FIX DEVICE TECHNIQUE: 3 view(s) of the ankle. COMPARISON: None. FINDINGS: Status post reduction of trimalleolar fracture with placement of external fixator devices within the distal tibial shaft and calcaneus. RAD/Ankle min 3 Views IMPRESSION: Status post closed reduction and external fixation device placement Electronically Signed: Demetrius Bruno MD at 19:22 EDT , Service support ,
[2020-01-11] MEDS: oxyCODONE 5 MG Tablet PO ×3 (04:17→22:35)
[2020-01-11] MEDS: 0.9% Normal Saline 1,000 ML 150 ML IV (05:05)
[2020-01-11] MEDS: Pregabalin 50 MG Capsule 100 MG PO ×2 (05:11→21:21)
--- NOTE | 2020-01-11 07:11 | CON.PCM_ITS ---
Problem List (1) Trimalleolar fracture of ankle, closed Status: Acute Qualifiers: Encounter type: initial encounter Laterality: right Qualified Code(s): S82.851A - Displaced trimalleolar fracture of right lower leg, initial encounter for closed fracture (2) Dislocation of right ankle joint, initial encounter Status: Acute Reason for Consult Date of Consultation: 01/11/20 Reason for Consultation: Right ankle trimalleolar fracture, closed. Right ankle dislocation History of Present Illness: The patient is a 59 year old F with a significant history of neuropathy; asthma; hypersomnolence; drug overdose: tobacco abuse; vitamin D deficiency; and seizures who was admitted through [facility] ED on 01/10/2020 due to multiple injuries from a fall that occurred on 01/09/2020. After verbal questioning, patient relates that in the morning of January 08, patient states that she lost consciousness and fell. After awakening, patient noted significant pain in her right ankle with a deformity along with multiple injuries to her scalp and face. Patient states that it took her multiple attempts and multiple hours to access the telephone. Following the fall she tried to get up and she had multiple other falls. She had a bleeding from her face. Once finally accessing the telephone, she was able to contact emergency medical services to transport her to the emergency department. While in the emergency department it was found that her right ankle was dislocated. Radiographic evaluation reveals a right ankle joint dislocation with a trimalleolar ankle fracture. At that time, closed reduction was attempted, but only a minimal reduction was able to be achieved. Furthermore, her CPK and creatinine were elevated. Patient was then admitted for further evaluation and consultation for her right ankle fracture. Past Medical History Past Medical History (Chronic Problems): Chronic Problems (Last Reviewed 01/10/20 @ 21:[address] 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) Degeneration of intervertebral disc of lumbosacral region (Chronic) Radiculopathy of lumbosacral region (Chronic) Spondylosis of lumbosacral region without myelopathy or radiculopathy (Chronic) Lumbar facet arthropathy (Chronic) Headache (Chronic) Rosacea (Chronic) Chronic sinusitis (Chronic) Osteopenia (Chronic) Smoking greater than 40 pack years (Chronic) Congestion of nasal sinus (Chronic) Hypersomnolence (Chronic) Fatigue (Chronic) Neuropathy (Chronic) Vitamin D deficiency (Chronic) History of seizures (Chronic) Asthma (Chronic) Seasonal allergies (Chronic) Seizure disorder (Chronic) Right hip pain (Chronic) Hypertension (Chronic) Chronic back pain (Chronic) Seizures (Chronic) Medical History: Medical History (Last Reviewed 01/10/20 @ 21:[address] Quang Mcfarlane MD) Neuropathy (Chronic) G62.9 Vitamin D deficiency (Chronic) E55.9 History of seizures (Chronic) Z87.898 History of pneumonia (Inactive) Z87.01 Asthma (Chronic) J45.909 Seasonal allergies (Chronic) J30.2 Allergies Penicillins Allergy (Severe, Verified 01/10/20 18:20) vomiting aspirin Adverse Reaction (Verified 01/10/20 18:20) Upset Stomach HX OF ULCERS Home Medications: Ambulatory Orders Medication Instructions Recorded Albuterol Inhaler [Ventolin Hfa] 2 puff INHALATION Q4H PRN PRN 06/29/17 baclofen 20 mg tablet 20 mg PO TID PRN #90 tab 10/28/18 Buprenorphine 7.5 mcg TD TU 11/29/18 duloxetine 30 mg capsule,delayed 30 mg PO BID 02/02/19 release pregabalin 100 mg capsule 100 mg PO TID 03/25/19 Escitalopram Oxalate [Lexapro] 20 mg PO DAILY 12/22/19 Fenofibrate Nanocrystallized 48 mg PO DAILY 12/22/19 [Tricor] Montelukast [Singulair] 10 mg PO QHS 12/22/19 Pravastatin Sodium 20 mg PO DAILY 12/22/19 Topiramate [Topamax] 50 mg PO QHS 12/22/19 Lisinopril 11 tab PO DAILY 01/10/20 Omeprazole 1 tab PO DAILY 01/10/20 Surgical History: Surgical History (Last Reviewed 01/10/20 @ 21:[address] 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 Quang Mcfarlane MD) Mother Breast cancer Hypertension Hyperlipemia Cancer ulcers Father Diabetes Myocardial infarction, Onset Age: 67 Hypertension Depression Sister Depression Hyperlipemia History Items: Hypertension Paternal Family History: Family History (Last Reviewed 01/10/20 @ 21:[address] Quang Mcfarlane MD) Mother Breast cancer Hypertension Hyperlipemia Cancer ulcers Father Diabetes Myocardial infarction, Onset Age: 67 Hypertension Depression Sister Depression Hyperlipemia History Items: No pertinent history Review of Systems Constitutional: Reports: Malaise, Weakness. Denies: Anorexia, Chills, Fever, Night Sweats Eyes: Reports: Blurred vision, Pain, Vision Change HEENT: Reports: Head Aches. Denies: Difficulty Hearing, Difficulty Swallowing, Dysphasia Cardiovascular: Denies: Chest Pain, Claudication, Chest Pressure, Chest Tightness Respiratory: Denies: Cough, Hemoptysis, Pleuritic Pain, Shortness of Breath Gastrointestinal: Denies: Abdominal Pain, Constipation Genitourinary: Denies: Dysuria Musculoskeletal: Reports: Joint Pain - right ankle joint pain Skin: Reports: Lesions - multiple fracture blisters and lesions of right ankle Neurological: Reports: Balance problems, Blurred vision Psychiatric: Reports: Depression Endocrine: Denies: Change in Body Habitus, Heat/ Cold Intolerance, Polydipsia, Polyuria Patient Problems: Active and Suspected Problems (Last Reviewed 01/10/20 @ 21:[address] Quang Mcfarlane MD) Bimalleolar fracture of right ankle (Acute) Bimalleolar fracture of right ankle (Acute) Trimalleolar fracture of ankle, closed (Acute) Dislocation of right ankle joint, initial encounter (Acute) Subjective: Patient seen at bedside at this time. Patient admits to pain in right ankle and foot. Patient states that her pain is improved since being admitted. Patient admits to multiple injuries of her face and scalp as well. Patient states that she has been unable to sleep due to the pain. No acute events reported ov ernight by nursing staff. Patient denies any other acute complaints at this time. Currently, patient denies fever, chills, nausea, vomiting, shortness of breath, chest pain. Patient denies right calf pain. Objective: Lower extremity physical exam: Dressing is clean and intact to the right lower extremity. Dressing was removed at this time. Vascular: Capillary fill time is less than 3 seconds to digits the right foot. Difficulty palpating posterior tibial and dorsalis pedis pulse of the right foot and ankle secondary to edema. Temperature gradient is within normal limits of the right lower extremity. Significant nonpitting edema noted of the right lower extremity starting the dorsal aspect of the metatarsal heads extending proximally to the midportion of the tibia and the fibula. Loss of skin lines noted around the right ankle. Neurological: Gross and protective sensation are diminished from the toes to the ankle of the right lower extremity, and intact from the ankle to the tibial tuberosity of the right lower extremity. Dermatological: Evidence of multiple serous fracture blisters noted on the medial aspect of the right ankle. Furthermore, evidence of superficial abrasion noted in the medial aspect of the right ankle in the area of the medial malleolus. Evidence of serous fracture blisters noted at the third digit of the right foot. Evidence of superficial abrasions noted on the anterior aspect of the right tibia. Otherwise, skin envelope is intact. Musculoskeletal: Muscle strength is deferred at this time. The right foot and ankle appear to be in a valgus position when compared to the longitudinal axis of the tibia. Talus does not appear underneath the tibia at this time. - Physical Exam Vitals/I&O's: Vital Signs Temp Pulse Resp BP Pulse Ox 98.0 F 68 14 95/63 93 01/11/20 03:45 01/11/20 03:45 01/11/20 03:45 01/11/20 03:45 01/11/20 03:45 Oxygen Flow Rate (L/min) [2] 4 Oxygen Flow Rate (L/min) [1 ( 97 Initial Baseline)] Oxygen Flow Rate (L/min) 4 Oxygen Delivery Method [3] Nasal Cannula Oxygen Delivery Method [2] Nasal Cannula Oxygen Delivery Method [1 ( Nasal Cannula Initial Baseline)] Oxygen Delivery Method Room Air Weight: 87.1 kg Body Mass Index (BMI) 30.9 Intake and Output for Last 24 Hours 01/09/20 01/10/20 01/11/20 23:59 23:59 23:59 Intake Total 1620 / 1620 982.5 / 982.5 Output Total 0 / 0 Balance 1620 / 1620 982.5 / 982.5 General: Alert, Oriented x3, Cooperative HEENT: PERRLA - Evidence of bruising noted around the right and left orbits. Evidence of laceration noted on the anterior aspect of the nose. Evidence of laceration noted on the scalp. Oral: Moist Mucosa Neck: Supple, No JVD Lungs: Normal air movement, Rhonchi Cardiovascular: Regular rate, Regular Rhythm, Normal S1, Normal S2 Abdomen: Bowel Sounds Present, Soft, Non Tender, Non-Distended Extremities: No clubbing, No cyanosis, Capillary Refill Less than 3 Seconds, No Calf Tenderness, Diminished Peripheral Pulses Skin: Skin Tear - As described above Musculoskeletal: Tenderness - Upon palpation compression of the right ankle Neurological: - - Gross and protective sensation are diminished to the right lower extremity Psych/Mental Status: Alert and oriented to time, place, person, mood and affect Laboratory Results 01/10/20 18:35: Sodium 143, Potassium 4.1, Chloride 113 H, Carbon Dioxide 20.0 L , Anion Gap 10, BUN 72 H, Creatinine 2.20 H, Estim Creat Clear Calc 25.78, Est GFR (MDRD) Af Amer 29 L, Est GFR (MDRD) Non-Af 24 L, BUN/Creatinine Ratio 32.7 H , Glucose 116 H, Calcium 9.2 01/10/20 18:35: Total Creatine Kinase 3063 H 01/10/20 18:55: WBC 12.6 H, RBC 4.79, Hgb 13.7, Hct 41.7, MCV 87.1, MCH 28.6, MCHC 32.9, RDW Std Deviation 43.0, RDW Coeff of Dyana 13.8, Plt Count 252, MPV 11.1, Immature Gran % (Auto) 0.600, Neut % (Auto) 77.1 H, Lymph % (Auto) 11.4 L, [place] % (Auto) 10.7 H, Eos % (Auto) 0.0, Baso % (Auto) 0.2, Absolute Neuts (auto) 9.7 H, Absolute Lymphs (auto) 1.43, Nucleated RBC % 0 STUDY: X-RAY - RIGHT ANKLE REASON FOR EXAM: Female, 59 years old. Fall yesterday. Rt ankle pain TECHNIQUE: 2 view(s) of the ankle. COMPARISON: None. FINDINGS: There is an acute spiral fracture of the distal third of the fibular shaft with overlapping and medial angulation of fracture fragments. There is also a chip fracture of the distal fibular plafond separation of fracture fragments.. There is also an intra-articular fracture of the distal tibia with mild separation of fracture fragments and associated dislocated medial malleolus with medial displacement of the distal tibia with respect to the talus. Normal visualized talus and calcaneus. The visualized subtalar, talonavicular, calcaneocuboid and tarsal articulations are normal. Diffuse bimalleolar soft tissue swelling is noted RAD/Ankle min 3 Views IMPRESSION: Acute bimalleolar fracture with associated dislocation of the medial malleolus. STUDY: X-RAY - RIGHT ANKLE REASON FOR EXAM: Female, 59 years old. post reduction of Rt ankle TECHNIQUE: 3 view(s) of the ankle. COMPARISON: January 10, 2020 FINDINGS: Status post reduction and casting of distal fibular fracture with minor separation of fracture fragments.. Subluxed medial tibiotalar joint in association with transversely oriented fracture of the distal tibial plafond with separation of fracture fragments RAD/Ankle min 3 Views IMPRESSION: Spiral fracture of the distal fibular shaft with minor separation of fracture fragments. Persistent subluxation of the medial tibiotalar joint and transversely oriented fracture of the tibial plafond with separation of fracture fragments status post closed reduction and casting Electronically Signed: Demetrius Bruno MD at 20:52 EDT , Service support , Current Medications Acetaminophen (Tylenol) 650 mg PO Q6H PRN PRN PRN Reason: Pain Score 1-10/Temp > 100.7 F Albuterol Sulfate (Ventolin Aerosols) 2.5 mg INHALATION Q2H PRN PRN PRN Reason: Shortness of Breath/Wheezing Baclofen (Lioresal) 20 mg PO TID PRN PRN PRN Reason: muscle spasticity Dextrose (D50w Syringe) 0 gm IV X1 PRN; Protocol PRN Reason: Hypoglycemia Duloxetine HCl (Cymbalta) 30 mg PO BID [facility] Last Admin: 01/10/20 23:13 Dose: 30 mg Documented by: Escitalopram Oxalate (Lexapro) 20 mg PO DAILY [facility] Glucagon () 1 mg IM .X1 PRN PRN Reason: Hypoglycemia Sodium Chloride () 1,000 mls @ 150 mls/hr IV .Q6H40M [facility] Last Admin: 01/11/20 05:05 Dose: 150 mls/hr Documented by: Sodium Chloride () 250 mls @ 15 mls/hr IV .[id number] PRN PRN Reason: Saline Flush Sodium Chloride () 250 mls @ 15 mls/hr IV .[id number] PRN PRN Reason: Additional IVPB Infusion Montelukast Sodium (Singulair) 10 mg PO QHS [facility] Last Admin: 01/10/20 23:14 Dose: 10 mg Documented by: Morphine Sulfate () 2 mg IV Q3H PRN PRN PRN Reason: Pain Score 6-10/10 Ondansetron HCl (Zofran) 4 mg IV Q8H PRN PRN PRN Reason: NAUSEA/VOMITING Oxycodone HCl (Oxyir) 5 mg PO Q4H PRN PRN PRN Reason: Pain Score 4-5/10 Last Admin: 01/11/20 04:17 Dose: 5 mg Documented by: Pantoprazole Sodium (Protonix) 40 mg PO DAILY [facility] Pravastatin Sodium (Pravachol) 20 mg PO DAILY@2200 [facility] Last Admin: 01/10/20 23:13 Dose: 20 mg Documented by: Pregabalin (Lyrica) 100 mg PO TID [facility] Last Admin: 01/11/20 05:11 Dose: 100 mg Documented by: Senna/Docusate Sodium (Senokot-S, Faby-Colace) 2 tablet PO BID PRN PRN PRN Reason: Constipation Sodium Chloride () 10 - 40 ml IV UD PRN PRN Reason: SALINE FLUSH Topiramate (Topamax) 50 mg PO QHS [facility] Last Admin: 01/10/20 23:16 Dose: 50 mg Documented by: Assessment/Plan All Active Problems (Last Reviewed 01/10/20 @ 21:[address] Quang Mcfarlane MD) Bimalleolar fracture of right ankle (Acute) Bimalleolar fracture of right ankle (Acute) Trimalleolar fracture of ankle, closed (Acute) Dislocation of right ankle joint, initial encounter (Acute) Drug overdose (Ruled-out) Morbid obesity (Resolved) Pericardial effusion (Resolved) Assessment: This is a 59-year-old female with multiple medical problems who was admitted on January 10, 2020 for multiple traumatic injuries and a right ankle trimalleolar fracture with a dislocation. Plan: Patient chart reviewed and patient evaluated. Full discussion had with the patient about the patient's current clinical condition. Radiographs from pre-reduction and post reduction shown and reviewed with the patient in detail. After verbal consent was obtained, a multilayer compressive dressing was placed over the right lower extremity. The posterior splint was reapplied to the right lower extremity and was held utilizing Ishmael bandages. Neurovascular status was assessed at the end of the application and deemed intact to the right lower extremity. At this time, I discussed with the patient the significant injury that she has to her right ankle. I discussed the terms of a trimalleolar ankle fracture with an ankle joint dislocation. I discussed with the patient the etiology of the fracture and the disease process. I discussed with the patient that she still has a significant deformity present in her right ankle. Due to this, I recommend urgent surgical intervention. I discussed with the patient that due to the significant edema that is present along with the multiple fracture blisters, I do not recommend an immediate open reduction with internal fixation. At this time, I would recommend a closed reduction of the right ankle joint with an application of an external fixator. I showed the patient multiple images of what an external fixator would look like. I discussed the risks and benefits of having an external fixator placed at this time. I discussed the treatment process with an external fixator, and discussed with the patient that this external fixator would likely be removed in a period of 2 to 3 weeks, with definitive internal fixation being performed after this. The risks, benefits, possible outcomes, possible complications of the proposed procedure with a closed reduction of the right ankle joint and application of the external fixator were discussed with the patient at this time. These include but not limited to delayed or nonhealing wounds, delayed or nonhealing bone, infection, DVT, decreased function of limb, loss of limb, loss of life. All the patient's questions were answered to her satisfaction and all of her concerns were addressed. No guarantees were made as to the outcome of the procedure. Patient understood all aspects of the procedure, and was agreeable to proceed. At this time, I will schedule the patient for any time today, January 11, 2020, after 12 PM. Once I get a time from the operating room, I will contact the floor with that time. In the meantime, I would like to continue the patient's n.p.o. status. I would like the patient to remain nonweightbearing to the right lower extremity at this time. I discussed with the patient about her current living situation. Patient states that she does live at home alone. Due to this, I discussed with the patient that she would likely benefit from a placement into a care facility after inpatient stay. Patient is agreeable to this. I will continue to follow patient closely and update accordingly. Surgery is planned today for the afternoon. Thank you very much for the consultation and allowing me to take part in the care of your patient. Office Visits / Consults: [id number] OP Consult L3
[2020-01-11 07:32] LABS: Absolute Lymphocyte Count 2.07 X10^3/uL (0.83-4.51); Absolute Neutrophil Count 7.5 X10^3/uL (2.0-7.7); Basophil# 0.07 X10^3/uL; Basophil% 0.6 % (0-1); Eosinophil# 0.09 X10^3/uL; Eosinophils% 0.8 % (0-5); Hematocrit 38.9 % (37-47); Hemoglobin 12.2 g/dL (12.0-15.0); Lymphocyte # 2.07 X10^3/ul (4.0); Lymphocyte % 18.6 % (19-41); Mean Corp Hgb Conc 31.4 g/dL (32-36); Mean Corpuscular Hgb 28.3 pg (27.0-32.0); Mean Corpuscular Volume 90.3 fL (81-99); Mean Platelet Vol. 11.1 fl (6.2-12.0); Monocyte# 1.34 X10^3/uL; NRBC Flagged by Analyzer 0 % (0-5); Neutrophil # 7.49 X10^3/uL (2.7-7.7); Neutrophil % 67.4 % (47-70); Platelet Count 230 K/mm3 (150-450); RBC Distribution Width CV 13.9 % (11.6-14.6); RBC Distribution Width SD 45.7 fl (35.1-43.9); Red Blood Count 4.31 M/mm3 (4.2-5.4); White Blood Count 11.1 K/mm3 (4.4-11.0)
[2020-01-11] MEDS: Morphine 2 MG/ML Syringe IV ×2 (07:41→10:44)
[2020-01-11 07:45] LABS: Anion Gap 5 (5-15); BUN 66 mg/dL (7-18); BUN/Creat Ratio 46.2 RATIO (10-20); Calcium,Total 8.2 mg/dL (8.5-10.1); Chloride 114 mmol/L (98-107); Creatinine, Serum 1.43 mg/dL (0.55-1.02); EST Glomerular Filtration Rate 40 mL/min (>60); Est Glom Filt Rate - Afr Amer 48 mL/min (>60); Estimated Creatinine Clearance 39.65 ml/min; Glucose 82 mg/dL (74-106); Potassium 3.6 mmol/L (3.5-5.1); Sodium Level 143 mmol/L (136-145)
[2020-01-11 08:30] LABS: International Normalized Ratio 1.1; Prothrombin Time (Protime)PT. 13.3 SECONDS (11.7-14.9)
--- NOTE | 2020-01-11 08:40 | RAD_ITS ---
STUDY: X-RAY - RIGHT ANKLE REASON FOR EXAM: Female, 59 years old. 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 COMPARISON: None. FINDINGS: Multiple views were obtained utilizing fluoroscopic guidance status post closed reduction and insertion of external fixator for previously noted bimalleolar fracture subluxation with indwelling orthopedic hardware. Fracture fragments are in near anatomic alignment and position. RAD/Ankle min 3 Views IMPRESSION: Status post fluoroscopic-guided closed reduction and external fixator placement Electronically Signed: Demetrius Bruno MD at 16:12 EDT , Service support ,
[2020-01-11 09:32] LABS: Vitamin B12 662 pg/mL (211-911)
--- NOTE | 2020-01-11 10:18 | CASEMGMT ---
AILIN GRAVES assessment: Face to Face with patient for initial transition planning/care coordination assessment. RN CM introduced self and role at [facility], pt voices understanding and consents to assessment at this time. Pt is lying in bed in no distress at this time. Pt is A/Ox4 at this time and answers all questions appropriately at this time. Pt with ecchymosis/swelling to face s/p 'multiple falls' per pt. Care providers, pharmacy, and demographics verified at this time. Presentation: Pt states fell last pm, got up and fell multiple more times d/t ankle injury. Obvious deformity to right ankle, nose pain w/ dried blood-swelling to bilat eyes/bruising noted by right axillary, pt also c/o back pain Admitting dx: Acute distal tibia/fibula fractures PCP: Khari Specialists: ANDREW Gregory Preferred [facility]acy: [facility] Insurance: [facility] Prescription Benefit: CRS Living Will/HPOA: Pt states does not have LW/HPOA and declines info at this time. LNOK: Krysta Green, sister(lives in [place]) Living Arrangements: Pt states lives alone in apartment with no stairs and states normally has no concerns at home. Pt is normally independent with ADL's Transportation: Pt states normally drives self and states no transportation concerns. DME/HHC: Pt states has a cane and walker at home and states no need for any further DME at this time. Pt states has no hx of HHC but has been to [facility] in the past but does not want to go back there. Pt does state concerns with going home at time of discharge and states that Dr. Washington recommended rehab s/p surgery. Pt provided with in-network list of SNF's at this time and pt states that she would like [facility] at this time. Mela GLASGOW aware, voices understanding. Pt is disabled. Pt states does not smoke or drink ETOH. Pt states no further concerns/needs at this time. CM to follow for any further discharge planning/needs. Advised pt to ask for CM if any further questions/concerns/needs arise, voices understanding. Pt Goal: [facility] Plan: [facility] AILIN GRAVES
[2020-01-11 11:20] LABS: Amphetamine Urine VISTA NEGATIVE (<1000 ng/mL); Barbiturate Urine VISTA NEGATIVE (< 200 ng/mL); Benzodiazepine Urine VISTA NEGATIVE (< 200 ng/mL); Cocaine Urine VISTA NEGATIVE (< 300 ng/mL); Ecstacy Urine VISTA NEGATIVE (< 500 ng/mL); Methadone Urine VISTA NEGATIVE (< 300 ng/mL); PCP Urine VISTA NEGATIVE (< 25 ng/mL); THC Urine VISTA NEGATIVE (< 50 ng/mL); Vista UDS pH Range 5
--- NOTE | 2020-01-11 13:12 | PCM.PN.HOSP ---
<Carlos Allen - Last Filed: 01/11/20 13:12> Patient Problems: Active and Suspected Problems (Last Reviewed 01/10/20 @ 21:[address] Quang Mcfarlane MD) Bimalleolar fracture of right ankle (Acute) Bimalleolar fracture of right ankle (Acute) Trimalleolar fracture of ankle, closed (Acute) Dislocation of right ankle joint, initial encounter (Acute) Reason for Visit: right ankle fx Subjective: Pt in bed semi white in obvious discomfort. C/o ongoing severe right ankle pain. No fever/chills. No SOB/cough. No numbness or paraesthesias. Vitals/I&O's: Vital Signs Temp Pulse Resp BP Pulse Ox 97.7 F L 67 16 101/47 L 98 01/11/20 10:27 01/11/20 10:27 01/11/20 10:27 01/11/20 10:27 01/11/20 10:27 Oxygen Flow Rate (L/min) [2] 4 Oxygen Flow Rate (L/min) [1 ( 97 Initial Baseline)] Oxygen Flow Rate (L/min) 4 Oxygen Delivery Method [3] Nasal Cannula Oxygen Delivery Method [2] Nasal Cannula Oxygen Delivery Method [1 ( Nasal Cannula Initial Baseline)] Oxygen Delivery Method Room Air Weight: 192 lb 0.362 oz Body Mass Index (BMI) 30.9 Intake and Output for Last 24 Hours 01/09/20 01/10/20 01/11/20 23:59 23:59 23:59 Intake Total 1620 / 1620 1835.0 / 1835.0 Output Total 0 / 0 Balance 1620 / 1620 1835.0 / 1835.0 General: Alert, Oriented x3, Cooperative HEENT: Atraumatic, PERRLA, EOMI, Normocephalic Neck: Supple, No JVD, Negative Carotid Bruits Lungs: Clear to auscultation, Normal air movement Cardiovascular: Regular rate, No murmurs Abdomen: Bowel Sounds Present, Soft, Non Tender Extremities: No edema, Capillary Refill Less than 3 Seconds Skin: No rashes, No breakdown Musculoskeletal: No Tenderness to Palpation of Joints or Extremities Neurological: Cranial nerves II-XII grossly intact Psych/Mental Status: Normal Affect, Appropriate, Alert and oriented to time, place, person, mood and affect Laboratory Results 01/10/20 18:35: Sodium 143, Potassium 4.1, Chloride 113 H, Carbon Dioxide 20.0 L, Anion Gap 10, BUN 72 H, Creatinine 2.20 H, Estim Creat Clear Calc 25.78, Est GFR (MDRD) Af Amer 29 L, Est GFR (MDRD) Non-Af 24 L, BUN/Creatinine Ratio 32.7 H, Glucose 116 H, Calcium 9.2 01/10/20 18:35: Total Creatine Kinase 3063 H 01/10/20 18:55: WBC 12.6 H, RBC 4.79, Hgb 13.7, Hct 41.7, MCV 87.1, MCH 28.6, MCHC 32.9, RDW Std Deviation 43.0, RDW Coeff of Dyana 13.8, Plt Count 252, MPV 11.1, Immature Gran % (Auto) 0.600, Neut % (Auto) 77.1 H, Lymph % (Auto) 11.4 L, Woodruff % (Auto) 10.7 H, Eos % (Auto) 0.0, Baso % (Auto) 0.2, Absolute Neuts (auto) 9.7 H, Absolute Lymphs (auto) 1.43, Nucleated RBC % 0 01/11/20 07:10: Vitamin B12 662, Vitamin D 25-Hydroxy 23.0 01/11/20 07:10: WBC 11.1 H, RBC 4.31, Hgb 12.2, Hct 38.9, MCV 90.3, MCH 28.3, MCHC 31.4 L, RDW Std Deviation 45.7 H, RDW Coeff of Dyana 13.9, Plt Count 230, MPV 11.1, Immature Gran % (Auto) 0.600, Neut % (Auto) 67.4, Lymph % (Auto) 18.6 L, Woodruff % (Auto) 12.0 H, Eos % (Auto) 0.8, Baso % (Auto) 0.6, Absolute Neuts (auto) 7.5, Absolute Lymphs (auto) 2.07, Nucleated RBC % 0 01/11/20 07:10: PT 13.3, INR 1.1 01/11/20 07:10: Sodium 143, Potassium 3.6, Chloride 114 H, Carbon Dioxide 24.0, Anion Gap 5, BUN 66 H, Creatinine 1.43 H, Estim Creat Clear Calc 39.65, Est GFR (MDRD) Af Amer 48 L, Est GFR (MDRD) Non-Af 40 L, BUN/Creatinine Ratio 46.2 H, Glucose 82, Calcium 8.2 L 01/11/20 07:10: CK Isoenzymes Pending, CK-MM (CK-3) Pending, CK-MB (CK-2) Pending, CK-BB (CK-1) Pending 01/11/20 09:15: COVID-19 (NIRAV) Negative 01/11/20 10:40: Urine Opiates Screen POSITIVE H, Urine Methadone Screen NEGATIVE, Ur Barbiturates Screen NEGATIVE, Ur Phencyclidine Scrn NEGATIVE, Ur Amphetamines Screen NEGATIVE, U Methamphetamin-MDMA NEGATIVE, U Benzodiazepines Scrn NEGATIVE, Urine Cocaine Screen NEGATIVE, U Cannabinoids Screen NEGATIVE, Ur Drug Screen Comment Current Medications Acetaminophen (Tylenol) 650 mg PO Q6H PRN PRN PRN Reason: Pain Score 1-10/Temp > 100.7 F Albuterol Sulfate (Ventolin Aerosols) 2.5 mg INHALATION Q2H PRN PRN PRN Reason: Shortness of Breath/Wheezing Baclofen (Lioresal) 10 mg PO TID PRN PRN Reason: MUSCLE SPASTICITY Dextrose (D50w Syringe) 0 gm IV X1 PRN; Protocol PRN Reason: Hypoglycemia Duloxetine HCl (Cymbalta) 30 mg PO BID [facility] Last Admin: 01/11/20 07:43 Dose: Not Given Documented by: Escitalopram Oxalate (Lexapro) 20 mg PO DAILY [facility] Last Admin: 01/11/20 07:43 Dose: Not Given Documented by: Glucagon () 1 mg IM .X1 PRN PRN Reason: Hypoglycemia Sodium Chloride () 1,000 mls @ 150 mls/hr IV .[id number] [facility] Last Infusion: 01/11/20 10:46 Dose: 0 mls/hr Documented by: Sodium Chloride () 250 mls @ 15 mls/hr IV .[id number] PRN PRN Reason: Saline Flush Sodium Chloride () 250 mls @ 15 mls/hr IV .[id number] PRN PRN Reason: Additional IVPB Infusion Vancomycin HCl 1,250 mg/ (Sodium Chloride) 275 mls @ 167 mls/hr IV PREOP ONE Stop: 01/11/20 15:08 Montelukast Sodium (Singulair) 10 mg PO QHS [facility] Last Admin: 01/10/20 23:14 Dose: 10 mg Documented by: Morphine Sulfate () 2 mg IV Q3H PRN PRN PRN Reason: Pain Score 6-10/10 Last Admin: 01/11/20 10:44 Dose: 2 mg Documented by: Ondansetron HCl (Zofran) 4 mg IV Q8H PRN PRN PRN Reason: NAUSEA/VOMITING Oxycodone HCl (Oxyir) 5 mg PO Q4H PRN PRN PRN Reason: Pain Score 4-5/10 Last Admin: 01/11/20 04:17 Dose: 5 mg Documented by: Pantoprazole Sodium (Protonix) 40 mg PO DAILY [facility] Last Admin: 01/11/20 07:43 Dose: Not Given Documented by: Pravastatin Sodium (Pravachol) 20 mg PO DAILY@2200 [facility] Last Admin: 01/10/20 23:13 Dose: 20 mg Documented by: Pregabalin (Lyrica) 100 mg PO TID [facility] Last Admin: 01/11/20 05:11 Dose: 100 mg Documented by: Senna/Docusate Sodium (Senokot-S, Faby-Colace) 2 tablet PO BID PRN PRN PRN Reason: Constipation Sodium Chloride () 10 - 40 ml IV UD PRN PRN Reason: SALINE FLUSH Topiramate (Topamax) 50 mg PO QHS [facility] Last Admin: 01/10/20 23:16 Dose: 50 mg Documented by: STROKE Vital Signs/Narrative: Vital Signs Temp Pulse Resp BP Pulse Ox 01/11/20 10:27 97.7 F L 67 16 101/47 L 98 Medical Necessity - Tobacco Use Smoking Status: Current every day smoker Tobacco Use: Cigarettes Assessment/Plan All Active Problems (Last Reviewed 01/10/20 @ 21:[address] Quang Mcfarlane MD) Bimalleolar fracture of right ankle (Acute) Bimalleolar fracture of right ankle (Acute) Trimalleolar fracture of ankle, closed (Acute) Dislocation of right ankle joint, initial encounter (Acute) Drug overdose (Ruled-out) Morbid obesity (Resolved) Pericardial effusion (Resolved) 1. Acute right trimalleolar fx - to OR today with podiatry. post op PT/OT. 2. ABRAM with acute rhabdo - continue IVF, trend CPK 3. Nasal fx - acute vs chronic on imaging. o/p referral to maxilofacial surgeon 4. Hx chronic pain disorder - pt on baseline buprenorphine patch, baclofen, lyrica 5. Hx seizures - topamax 6. Hx ashtma - no exacerbation - prn aerosols, post op IS. continue singulair 7. Diminshed left foot pulses - MARLENE pending DVT ppx: held for OR DC planning: PTOT evals This patient was seen by Carlos Allen PA-C under the supervision of Dr. Mireles <Daniel Mireles - Last Filed: 01/11/20 14:59> Reason for Visit: Fall with acute right ankle bimalleolar fracture with associated dislocation of medial malleolus Subjective: Patient fell down, exact circumstances surrounding the fall not clear as per the patient but she thinks she might have tripped over the carpet. She fell on face forward and bruised on the nose and eyes. She felt 2-3 times afterwards as she could not stand up because of severe pain in right ankle. His raccoon eyes in both eyes, more on the left eye. Vitals/I&O's: Vital Signs Temp Pulse Resp BP Pulse Ox 97.7 F L 67 16 101/47 L 98 01/11/20 10:27 01/11/20 10:27 01/11/20 10:27 01/11/20 10:27 01/11/20 10:27 Oxygen Flow Rate (L/min) [2] 4 Oxygen Flow Rate (L/min) [1 ( 97 Initial Baseline)] Oxygen Flow Rate (L/min) 4 Oxygen Delivery Method [3] Nasal Cannula Oxygen Delivery Method [2] Nasal Cannula Oxygen Delivery Method [1 ( Nasal Cannula Initial Baseline)] Oxygen Delivery Method Room Air Weight: 192 lb 0.362 oz Body Mass Index (BMI) 30.9 Intake and Output for Last 24 Hours 01/09/20 01/10/20 01/11/20 23:59 23:59 23:59 Intake Total 1620 / 1620 1835.0 / 1835.0 Output Total 250 / 250 Balance 1620 / 1620 1585.0 / 1585.0 General: Alert, Oriented x3, Cooperative HEENT: PERRLA, EOMI, Normocephalic, - - Bruise over both eyes, black color more on the left eye. Periorbital soft tissue edema. Eyelashes matting on left eye. Tenderness on the nasal bridge. No conjunctival injection or redness. Oral: No Gingival or Mucosal Lesions/ Ulcerations Neck: Supple, No JVD, Negative Carotid Bruits Lungs: Clear to auscultation, No rhonchi, No wheeze, Diminished - Air entry diminished on bilateral lung bases. Cardiovascular: Regular rate, Regular Rhythm, Normal S1, Normal S2, No murmurs Abdomen: Bowel Sounds Present, Soft, Non Tender, Non-Distended Extremities: Capillary Refill Less than 3 Seconds, Edema - Edema of right leg Skin: No rashes, No breakdown Musculoskeletal: Arthritic Changes, Tenderness - Tenderness of right ankle with Ishmael wrap bandage. No passive or active motion possible., - - Lower extremity exam is limited because of pain. Neurological: Cranial nerves II-XII grossly intact, Deep Tendon Reflexes 2+/4 and Symmetrical, Neuro grossly intact, - Psych/Mental Status: Normal Affect, Appropriate Laboratory Results 01/10/20 18:35: Sodium 143, Potassium 4.1, Chloride 113 H, Carbon Dioxide 20.0 L, Anion Gap 10, BUN 72 H, Creatinine 2.20 H, Estim Creat Clear Calc 25.78, Est GFR (MDRD) Af Amer 29 L, Est GFR (MDRD) Non-Af 24 L, BUN/Creatinine Ratio 32.7 H, Glucose 116 H, Calcium 9.2 01/10/20 18:35: Total Creatine Kinase 3063 H 01/10/20 18:55: WBC 12.6 H, RBC 4.79, Hgb 13.7, Hct 41.7, MCV 87.1, MCH 28.6, MCHC 32.9, RDW Std Deviation 43.0, RDW Coeff of Dyana 13.8, Plt Count 252, MPV 11.1, Immature Gran % (Auto) 0.600, Neut % (Auto) 77.1 H, Lymph % (Auto) 11.4 L, Woodruff % (Auto) 10.7 H, Eos % (Auto) 0.0, Baso % (Auto) 0.2, Absolute Neuts (auto) 9.7 H, Absolute Lymphs (auto) 1.43, Nucleated RBC % 0 07/01/20 07:10: Vitamin B12 662, Vitamin D 25-Hydroxy 23.0 01/11/20 07:10: WBC 11.1 H, RBC 4.31, Hgb 12.2, Hct 38.9, MCV 90.3, MCH 28.3, MCHC 31.4 L, RDW Std Deviation 45.7 H, RDW Coeff of Dyana 13.9, Plt Count 230, MPV 11.1, Immature Gran % (Auto) 0.600, Neut % (Auto) 67.4, Lymph % (Auto) 18.6 L, Woodruff % (Auto) 12.0 H, Eos % (Auto) 0.8, Baso % (Auto) 0.6, Absolute Neuts (auto) 7.5, Absolute Lymphs (auto) 2.07, Nucleated RBC % 0 01/11/20 07:10: PT 13.3, INR 1.1 01/11/20 07:10: Sodium 143, Potassium 3.6, Chloride 114 H, Carbon Dioxide 24.0, Anion Gap 5, BUN 66 H, Creatinine 1.43 H, Estim Creat Clear Calc 39.65, Est GFR (MDRD) Af Amer 48 L, Est GFR (MDRD) Non-Af 40 L, BUN/Creatinine Ratio 46.2 H, Glucose 82, Calcium 8.2 L 01/11/20 07:10: CK Isoenzymes Pending, CK-MM (CK-3) Pending, CK-MB (CK-2) Pending, CK-BB (CK-1) Pending 01/11/20 09:15: COVID-19 (NIRAV) Negative 01/11/20 10:40: Urine Opiates Screen POSITIVE H, Urine Methadone Screen NEGATIVE, Ur Barbiturates Screen NEGATIVE, Ur Phencyclidine Scrn NEGATIVE, Ur Amphetamines Screen NEGATIVE, U Methamphetamin-MDMA NEGATIVE, U Benzodiazepines Scrn NEGATIVE, Urine Cocaine Screen NEGATIVE, U Cannabinoids Screen NEGATIVE, Ur Drug Screen Comment Current Medications Acetaminophen (Tylenol) 650 mg PO Q6H PRN PRN PRN Reason: Pain Score 1-10/Temp > 100.7 F Albuterol Sulfate (Ventolin Aerosols) 2.5 mg INHALATION Q2H PRN PRN PRN Reason: Shortness of Breath/Wheezing Baclofen (Lioresal) 10 mg PO TID PRN PRN Reason: MUSCLE SPASTICITY Dextrose (D50w Syringe) 0 gm IV X1 PRN; Protocol PRN Reason: Hypoglycemia Duloxetine HCl (Cymbalta) 30 mg PO BID [facility] Last Admin: 01/11/20 07:43 Dose: Not Given Documented by: Escitalopram Oxalate (Lexapro) 20 mg PO DAILY [facility] Last Admin: 01/11/20 07:43 Dose: Not Given Documented by: Glucagon () 1 mg IM .X1 PRN PRN Reason: Hypoglycemia Sodium Chloride () 1,000 mls @ 125 mls/hr IV .Q8H [facility] Last Infusion: 01/11/20 10:46 Dose: 0 mls/hr Documented by: Sodium Chloride () 250 mls @ 15 mls/hr IV .[id number] PRN PRN Reason: Saline Flush Sodium Chloride () 250 mls @ 15 mls/hr IV .[id number] PRN PRN Reason: Additional IVPB Infusion Vancomycin HCl 1,250 mg/ (Sodium Chloride) 275 mls @ 167 mls/hr IV PREOP ONE Stop: 01/11/20 15:08 Last Admin: 01/11/20 13:30 Dose: 167 mls/hr Documented by: Montelukast Sodium (Singulair) 10 mg PO QHS [facility] Last Admin: 01/10/20 23:14 Dose: 10 mg Documented by: Morphine Sulfate () 2 mg IV Q3H PRN PRN PRN Reason: Pain Score 6-10/10 Last Admin: 01/11/20 10:44 Dose: 2 mg Documented by: Ondansetron HCl (Zofran) 4 mg IV Q8H PRN PRN PRN Reason: NAUSEA/VOMITING Oxycodone HCl (Oxyir) 5 mg PO Q4H PRN PRN PRN Reason: Pain Score 4-5/10 Last Admin: 01/11/20 04:17 Dose: 5 mg Documented by: Pantoprazole Sodium (Protonix) 40 mg PO DAILY [facility] Last Admin: 01/11/20 07:43 Dose: Not Given Documented by: Pravastatin Sodium (Pravachol) 20 mg PO DAILY@2200 [facility] Last Admin: 01/10/20 23:13 Dose: 20 mg Documented by: Pregabalin (Lyrica) 100 mg PO TID [facility] Last Admin: 01/11/20 05:11 Dose: 100 mg Documented by: Senna/Docusate Sodium (Senokot-S, Faby-Colace) 2 tablet PO BID PRN PRN PRN Reason: Constipation Sodium Chloride () 10 - 40 ml IV UD PRN PRN Reason: SALINE FLUSH Topiramate (Topamax) 50 mg PO QHS [facility] Last Admin: 01/10/20 23:16 Dose: 50 mg Documented by: Assessment/Plan This patient was seen in conjunction with Carlos HEIN. I have independently interviewed and examined the patient and reviewed pertinent history, examination findings, laboratory and plan of management. I have reviewed the note and agree with the documented findings with the few additional points. In brief, patient is admitted for multiple fall day before admission resulting into acute right trimalleolar fracture with associated medial malleolus dislocation: There is also a spiral fracture of distal fibular shaft with minor separation of fracture segments. [facility] [employer] [facility] was consulted. Dr. Washington saw the patient and taken for ORIF. ABRAM with mild rhabdomyolysis: CK 3063. BUN/creatinine 72/2.2, improved to 66/1.43 suggestive of acute kidney injury, prerenal etiology. Continue IV fluid normal saline. Follow-up CK level. Hold lisinopril. Nasal bone fracture: Patient can follow-up with maxillofacial oral surgeon as an outpatient. CT head and C-spine no acute change. Mild discoid atelectasis of left lung base. Other chronic comorbidities include seizures/epilepsy syndrome nonspecific, asthma, chronic pain disorder: It seems patient buprenorphine patch 7.5 mcg weekly and Topamax, duloxetine and baclofen. Dyslipidemia: Hold fenofibrate. Diminished left foot pulse: Left MARLENE 1.0. I have discussed my assessment with Carlos HEIN and orders have been reviewed. Inpatient E&M: 33323 Subs Hosp L2
--- NOTE | 2020-01-11 13:56 | CASEMGMT ---
Per RN CM patient is interested in going to [facility] [place]. SW called [facility] with referral as well as faxed information. 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
[2020-01-11] MEDS: Bupivacaine Mpf 0.5% 30 ML VIAL (14:39)
--- NOTE | 2020-01-11 15:02 | OP.PCM_ITS ---
Problem List (1) Trimalleolar fracture of ankle, closed Status: Acute Qualifiers: Encounter type: initial encounter Laterality: right Qualified Code(s): S82.851A - Displaced trimalleolar fracture of right lower leg, initial encounter for closed fracture (2) Dislocation of right ankle joint, initial encounter Status: Acute Report of Operation Date of Procedure: 01/11/20 Pre-Operative Diagnosis: 1. Right ankle trimalleolar fracture, closed. 2. Right ankle joint dislocation Post-Operative Diagnosis: Same as preoperative Surgery/Procedure Performed:: 1. Application of multiplane external fixator, right foot/ankle/leg. 2. Closed reduction of right ankle trimalleolar fracture Description of Surgical Findings:: Consistent with diagnosis. Reduction of fractures and dislocation of right ankle joint achieved and held with external fixation editor news: Gennaro Rios Type of Anesthesia:: General/Regional - With a popliteal and abductor block given the right lower extremity by anesthesia Anesthesiologist: Angelo Hamilton Special Medications: 1 g of vancomycin given preoperatively Specimen's removed: None Drains: None Estimated Blood Loss (mL): 20 Description of Procedure: Hemostasis: Anatomic dissection Estimated blood loss: 20 mL Materials: #1. [place] 10 hole pin clamp. 2. [place] delta coupling x8. 3. [place] 30 degree angled post x2. 4. [place] 150 mm x 40 mm with a 5 mm diameter pin x2. 5. [place] 180 mm x 50 mm with a 5 mm diameter pin x3. 6. [place] 250 mm carbon chaz x2. 7. [place] 400 mm carbon chaz x2. Injectables: None Complications: None Condition: Stable Indications: Patient is a 59-year-old female with multiple medical problems who suffered a fall in her home in the morning of January 09, 2020. Patient does live alone, and was unable to obtain assistance for a period of time until January 10, 2020. At that time, she was able to contact the EMS service and they brought her to the [facility] Emergency department. Upon evaluation, patient had multiple injuries along with a right ankle trimalleolar fracture with dislocation. Attempted reduction was performed in the emergency department. Reduction was difficult to achieve. Due to the patient's multiple medical problems and multiple injuries, patient was admitted for further evaluation. I was then consulted to evaluate the patient. I discussed with the patient that she does have a severe injury to her right ankle. The attempts at closed reduction that were performed were unable to fully reduce the ankle at this time. After reviewing her right ankle, there was significant swelling along with fracture blisters. I discussed with the patient that due to the deformity that is present along with the condition of her skin and soft tissues, I recommended surgical intervention. The surgical intervention would have to be a multistep process. I recommended an initial surgical intervention of a closed reduction of the right ankle joint with application of multiplane external fixator. I discussed the risks and benefits to this. I discussed that, after period of time and after her skin and soft tissues show progressive healing, we would remove this external fixator and perform definitive internal fixation. All the patient's questions were answered to her satisfaction and all of her concerns were addressed. No guarantees were made as to the outcome of the procedure. Patient understood all aspects of the procedure, and was agreeable to initial surgical intervention of reduction of deformity with application of external fixator. Operative report: Before the patient was brought to the operating room, the risks, benefits, possible outcomes, possible complications of the procedure were discussed with the patient. These include but not limited to delayed or nonhealing wounds, delayed or nonhealing bone, DVT, infection, decreased function of limb, loss of limb, loss of life. All the patient questions were answered to her satisfaction and all of her concerns were addressed. No guarantees were made as to the outcome of the procedure. Patient understood all aspects of the procedure, and consent was then signed by the patient. Patient was then brought to the operating room and placed on the operating table in supine position. Anesthesia took control of the airway. Adequate padding was placed in all pressure points. At that time, the dressing of the right lower extremity was removed. Attention was then directed to the medial aspect of the right ankle in the area of the multiple fracture blisters. These were then incised. Distraction of the right ankle joint was performed to help reduce the ankle joint fracture. The right foot, ankle, leg were then scrubbed, prepped, draped in the usual sterile manner. Attention was then directed to the midportion of the anterior tibia. At this time, radiograph evaluation was used to determine the midportion of the tibia. These will be with a tibial pins will be placed. Next, the parallel guide for the [place] half pins was used to perform 2 stab incisions in a parallel fashion approximately 3 cm apart. These incisions were deepened utilizing sharp and blunt dissection. Care was taken to retract all vital neural and vascular structures. All bleeders were cauterized and ligated as necessary. Once adequate soft tissue dissection was performed, these parallel guides were used to drill the tibial half pins from anterior to posterior in a bicortical fashion through the midshaft of the tibia. These were inserted in standard AO fixation. Of note during insertion of the pins was that they were bicortical. Once the pins were fully inserted, radiograph evaluation was then performed. The pins were noted to be well contained within the center of the tibia and were noted to be bicortical. They were noted to neither be too long or too short. Attention was then directed to the lateral aspect of the calcaneus. At this time, radiograph evaluation was used to determine where the lateral calcaneal half pin would be placed. It was determined that this would be placed in the central body. Once adequate position was had, a stab incision was made on the lateral aspect of the calcaneus with blunt dissection continued down deep to the level of the calcaneus. Once adequate blunt dissection was had, live radiograph evaluation was used to insert the lateral half pin from the lateral aspect of the calcaneus into the medial aspect of the calcaneus. Care taken make sure that this was bicortical. Once this was fully inserted, radiograph evaluation was then performed. The lateral calcaneal half pin was noted to be bicortical at this time and was noted to not be too long or too short. Attention was then directed to the medial aspect of the calcaneus. At this time, radiograph evaluation was used to determine where the medial calcaneal half pin would be placed. It was determined that this would be placed in the central body, and far enough away from the lateral calcaneal half pin to avoid any possible interaction or stress fracture. Once adequate position was had, a stab incision was made on the medial aspect of the calcaneus with blunt dissection continued down deep to the level of the calcaneus. Once adequate blunt dissection was had, live radiograph evaluation was used to insert the medial half pin from the medial aspect of the calcaneus into the lateral aspect of the calcaneus. Care taken make sure that this was bicortical. Once this was fully inserted, radiograph evaluation was then performed. The medial calcaneal half pin was noted to be bicortical at this time and was noted to not be too long or too short. Attention was then directed to the medial aspect of the foot in the area of the medial cuneiform. Positioning was determined by radiographic evaluation. This pin would be used for the medial foot. Live radiographic evaluation was used to determine where the midportion of the cuneiform would be had. Once this was determined, a stab incision was made at this level. Blunt dissection was co ntinued down deep to the level of the medial cuneiform. At this time, live radiograph evaluation was used to insert the half pin into the medial cuneiform, through the intermediate cuneiform, and into the lateral cuneiform. Once this was inserted, radiograph evaluation was then performed. The pin was noted to be well contained within the cuneiforms and noted to neither be to dorsal or to plantar. Furthermore, the pain was noted in either be too distal or too posterior. At this time, rods were attached from the tibial half pins to the lateral calcaneal pin, tibial half pins to the medial calcaneal half pin, lateral chaz to the medial cuneiform pin in a anterior diagonal fashion, and medial chaz to the anterior diagonal chaz. These were then all tightened proximally. At this time, live radiograph evaluation was used to reduce the ankle joint fracture and dislocation. Once adequate reduction was achieved, all the couplings were then tightened appropriately. Once adequate tightening was had, radiograph evaluation was then performed. The tibial pins were noted to not to be too long or too short and were noted to be bicortical and well contained within the tibia. The medial and lateral calcaneal pins were noted to not be too long or too short and well contained within the calcaneus. The medial cuneiform pin was noted to be neither too long or too short and noted to be well contained within the cuneiforms. The fractures were noted to be reduced with the lateral malleolus out to a more appropriate length and the medial malleolus back into a reduced anatomic position. Furthermore, the talus was noted to be underneath the tibia at this time. Overall, reduction of the deformity was had when compared to preoperative assessment. This reduction of deformity was held via this external fixation. Neurovascular status was assessed at the end of the application and deemed intact to the right lower extremity. Each pin site was then dressed with Xeroform. All fracture blisters were then dressed with Xeroform. Each pin site was then dressed with a dry sterile dressing consisting of 4 x 4 gauze. Kerlix was placed in between the patient's soft tissue and the external fixator to aid in reduction of edema. The external fixator was then wrapped with a Kerlix. The external fixator was then wrapped with a 4 and 6 inch Ishmael. Neurovascular status was assessed at the end the application and deemed intact to the right lower extremity. The patient tolerated the anesthesia procedure well and was transported to the PACU with vital signs stable and neurovascular status intact the right lower extremity. After period of postoperative monitoring, patient be transferred back to the progressive care unit and will continue to be followed by me while in house. At this time, I recommend the patient remain nonweightbearing to the right lower extremity. I recommend a physical therapy evaluation for training. I recommend beginning of DVT prophylaxis. I recommend continued pain medication management. I did discuss with the patient before the surgery that a placement into a rehabilitation facility may be in her best benefit. I recommend a social work consult for assistance. I will continue to follow the patient closely and update accordingly. Thank you very much for allowing me to take part in the care of your patient. - Complications None - Admit VTE Documentation VTE Present on Admission: No VTE Mechan Device Prophylaxis: SCD's VTE Pharm Prophylaxis ordered?: Yes
--- NOTE | 2020-01-11 15:13 | RAD_ITS ---
STUDY: X-RAY - RIGHT TIBIA AND FIBULA REASON FOR EXAM: Female, 59 years old. POST OP CLOSED REDUCTION W/EXTERNAL FIX DEVICE TECHNIQUE: 2 view(s) of the tibia and fibula were obtained. COMPARISON: January 11, 2020 FINDINGS: Postsurgical changes status post closed reduction of bimalleolar fracture subluxation with external fixation device placement. Fracture fragments are in anatomic alignment and position. RAD/Tibia & Fibula 2 Views IMPRESSION: Status post closed reduction and external fixation device placement Electronically Signed: Demetrius Bruno MD at 16:42 EDT , Service support ,
--- NOTE | 2020-01-11 15:13 | CT_ITS ---
STUDY: CT RIGHT ANKLE WITHOUT CONTRAST REASON FOR EXAM: Female, 59 years old. Rt ankle fracture after fall 01/09/20. Surgery today with external fixation in place. RADIATION DOSAGE (If Supplied By Facility): CTDIvol = ( 15.35 ) mGy, DLP = ( 581.41 ) mGycm TECHNIQUE: Thin section transaxial imaging of the ankle was obtained, with sagittal and coronal reconstructed images. Individualized dose optimization techniques were used for this CT. COMPARISON: None. FINDINGS: There is an obliquely oriented fracture through the distal third of the fibular shaft with minor separation of fracture fragments. There is associated tiny chip fracture of the distal fibular plafond with minor separation of fracture fragments. There is transversely oriented comminuted fracture through the distal tibial plafond with mild separation of fracture fragments. There is also an obliquely oriented intra-articular fracture through the distal posterior tibia with mild separation of fracture fragments. Normal tibiotalar articulation and talar dome. Normal talus, calcaneus, navicular and cuboid tarsal bones. Normal subtalar, talonavicular and calcaneocuboid articulations. Normal navicular-cuneiform, cuneiform tarsal bones and intercuneiform articulations. Normal tarsometatarsal articulations and visualized metatarsi. External fixators are noted traversing the mid tibial shaft as well as the calcaneus postsurgically. The soft tissue structures are grossly normal. CT/Extremity Lower without Contra IMPRESSION: Trimalleolar fracture of the ankle with fracture fragments in near anatomic alignment and position with external fixator pins in situ Electronically Signed: Demetrius Bruno MD at 17:36 EDT , Service support ,
--- NOTE | 2020-01-11 15:13 | RAD_ITS ---
STUDY: X-RAY - RIGHT FOOT CLINICAL: Female, 59 years old. POST OP CLOSED REDUCTION W/EXTERNAL FIX DEVICE TECHNIQUE: 3 view(s) of the foot. COMPARISON: None. FINDINGS: Postsurgical changes are noted status post closed reduction of previously noted trimalleolar fracture and external fixation device placement within the distal tibial shaft and calcaneus. RAD/Foot min 3 Views IMPRESSION: Status post closed reduction and external fixation device placement of acute trimalleolar fracture Electronically Signed: Demetrius Bruno MD at 19:20 EDT , Service support ,
[2020-01-11] MEDS: 0.9% Normal Saline 1,000 ML 100 ML IV ×2 (15:45→22:12)
--- NOTE | 2020-01-11 15:49 | CASEMGMT ---
MYAH received a call from [facility]. They can accept patient as long as she is okay with not smoking. MYAH will talk with patient when she returns from surgery. Patience ROMERO MSW
[2020-01-11] MEDS: Ipratropium/Albuterol Sulfate 3 ML AMPUL.NEB INHALATION (16:15)
[2020-01-11] MEDS: Acetaminophen 325 MG Tablet 650 MG PO (19:49)
[2020-01-11] MEDS: Montelukast 10 MG Tablet PO (21:21)
[2020-01-11] MEDS: Pravastatin 20 MG Tablet PO (21:21)
[2020-01-11] MEDS: Topiramate 50 MG Tablet PO (21:21)
[2020-01-11] MEDS: DULoxetine Hcl 30 MG Capsule PO (21:21)
[2020-01-11] MEDS: HYDROmorphone 1 MG/ML Syringe IV (21:22)
[2020-01-12] VITALS (12 sets, daily range): BP systolic 91–121; BP diastolic 47–65; PULSE 69–86; RESP 18; TEMP 36.2–37.1; O2SAT 94–97
[2020-01-12] MEDS: Baclofen 10 MG Tablet PO (00:28)
[2020-01-12] MEDS: HYDROmorphone 1 MG/ML Syringe IV ×5 (00:28→18:02)
[2020-01-12] MEDS: Acetaminophen 325 MG Tablet 650 MG PO ×2 (01:49→10:45)
[2020-01-12] MEDS: oxyCODONE 5 MG Tablet PO ×5 (02:42→21:49)
[2020-01-12] MEDS: Pregabalin 50 MG Capsule 100 MG PO ×3 (05:47→21:49)
[2020-01-12 07:09] LABS: Absolute Lymphocyte Count 1.55 X10^3/uL (0.83-4.51); Absolute Neutrophil Count 6.3 X10^3/uL (2.0-7.7); Basophil# 0.08 X10^3/uL; Basophil% 0.9 % (0-1); Eosinophil# 0.16 X10^3/uL; Eosinophils% 1.8 % (0-5); Hematocrit 34.6 % (37-47); Hemoglobin 10.8 g/dL (12.0-15.0); Lymphocyte # 1.55 X10^3/ul (4.0); Lymphocyte % 17.1 % (19-41); Mean Corp Hgb Conc 31.2 g/dL (32-36); Mean Platelet Vol. 11.1 fl (6.2-12.0); Monocyte# 0.95 X10^3/uL; Monocyte% 10.5 % (0-10); NRBC Flagged by Analyzer 0 % (0-5); Neutrophil # 6.28 X10^3/uL (2.7-7.7); Neutrophil % 69.4 % (47-70); Platelet Count 207 K/mm3 (150-450); RBC Distribution Width CV 14.4 % (11.6-14.6); RBC Distribution Width SD 48.6 fl (35.1-43.9); Red Blood Count 3.72 M/mm3 (4.2-5.4); White Blood Count 9.1 K/mm3 (4.4-11.0)
[2020-01-12 07:48] LABS: Anion Gap 5 (5-15); BUN 49 mg/dL (7-18); BUN/Creat Ratio 49.5 RATIO (10-20); Calcium,Total 7.6 mg/dL (8.5-10.1); Chloride 112 mmol/L (98-107); Creatinine, Serum 0.99 mg/dL (0.55-1.02); EST Glomerular Filtration Rate 61 mL/min (>60); Est Glom Filt Rate - Afr Amer 74 mL/min (>60); Estimated Creatinine Clearance 57.28 ml/min; Glucose 114 mg/dL (74-106); Magnesium 2.2 mg/dL (1.6-2.6); Potassium 3.7 mmol/L (3.5-5.1); Sodium Level 140 mmol/L (136-145)
[2020-01-12] MEDS: 0.9% Normal Saline 1,000 ML 100 ML IV ×2 (08:23→18:04)
--- NOTE | 2020-01-12 08:38 | CASEMGMT ---
Addendum entered by Maryan Eldridge 01/12/20 13:08: SW faxed PT/OT to [facility], called her to let her know they were faxed. She will start precert. WILIAN Bravo Addendum entered by Maryan Eldridge 01/12/20 10:29: SW spoke w/pt's sister, let her know that we are working on getting pt to a rehab, and that it is pending insurance approval. SW explained that pt may not be able to leave until Thursday if we do not get authorization today. Pt's sister states understanding. Pt's sister also let this SW know that pt has struggled with substance abuse, and that their mother in September. She states pt lived with their mother for 20 years and is having a difficult time with this. Pt's sister also explained that she was assisting pt in getting a housing voucher and pt has an apartment in [place]. She paid for pt's apartment for January, and is trying to figure out what to do as far as shutting down their mother's apartment where pt was living and moving pt's belongings to new apartment. She states that she may end up flying out here to get pt's belongings moved. SW offered support to sister. SW did speak w/[facility], let her know pt struggles with substance abuse as per sister, and that they recently lost their mother. SW let her know she may benefit from speaking to a counselor/psychologist once pt gets to [facility]. SW will continue to follow. WILIAN Bravo Original Note: SW received a message that pt's sister would like to speak w/MYAH. SW spoke w/pt, let her know that [facility] can take pt, as long as she is okay with not smoking. Pt is fine with this. SW explained to pt that once she has PT/OT, it will be sent to the detention to start precert with insurance. SW explained if we do not get precert today, she will be here through Thursday as insurance companies will be closed tomorrow due to 13 of January holiday. Pt states understanding. SW inquired if it would be okay to call her sister Krysta as she had called in, pt is fine with this. SW called Krysta, message left. Once PT/OT is complete, SW will fax to [facility] and call [facility]. SW did attempt to call [facility] now however the phone rings busy. WILIAN Bravo
[2020-01-12] MEDS: DULoxetine Hcl 30 MG Capsule PO ×2 (09:32→21:50)
[2020-01-12] MEDS: Escitalopram Oxalate 20 MG Tablet PO (09:32)
[2020-01-12] MEDS: Pantoprazole Sodium 40 MG Tablet PO (09:32)
--- NOTE | 2020-01-12 11:04 | PCM.PN.ORT ---
Patient Problems: Active and Suspected Problems (Last Reviewed 01/10/20 @ 21:[address] Quang Mcfarlane MD) Bimalleolar fracture of right ankle (Acute) Bimalleolar fracture of right ankle (Acute) Trimalleolar fracture of ankle, closed (Acute) Dislocation of right ankle joint, initial encounter (Acute) Subjective: Patient seen at bedside resting comfortably. Patient admits to improved pain of the right ankle and foot since surgical intervention. Overall, patient does feel improvement since being admitted to the hospital. Patient denies any acute complaints at this time. Patient denies any acute overnights events. No acute overnight events reported by nursing staff. Currently, patient denies fever, chills, nausea, vomiting, shortness of breath, chest pain. Patient denies right calf pain. Objective: Lower extremity physical exam: Dressing is clean, dry, intact to the right lower extremity. No evidence of disturbance or strikethrough noted. Vascular: Capillary fill time is less than 4 seconds to all digits of the right foot. Right toes are warm when compared to the contralateral lower extremity. Neurological: Light touch sensation is mildly diminished to the right toes at this time. Musculoskeletal: Patient able to freely move digits of the right foot at this time. Negative Lopez's sign noted of the right lower extremity. No tenderness upon palpation or compression of the right gastrocnemius. Dermatological: Evidence of superficial scab formation noted on the proximal aspect of the anterior tibia, with no signs of acute clinical infection. Fracture blisters noted on the medial aspect of the third digit of the right foot, previously incised. No evidence of acute clinical infection present here. No other areas of lesions noted. - Physical Exam Vitals/I&O's: Vital Signs Temp Pulse Resp BP Pulse Ox 97.9 F 72 18 101/65 96 01/12/20 09:27 01/12/20 10:42 01/12/20 09:27 01/12/20 10:42 01/12/20 09:27 Oxygen Flow Rate (L/min) [2] 4 Oxygen Flow Rate (L/min) [1 ( 97 Initial Baseline)] Oxygen Flow Rate (L/min) 2 Oxygen Delivery Method [3] Nasal Cannula Oxygen Delivery Method [2] Nasal Cannula Oxygen Delivery Method [1 ( Nasal Cannula Initial Baseline)] Oxygen Delivery Method Room Air Weight: 87.1 kg Body Mass Index (BMI) 30.9 Intake and Output for Last 24 Hours 01/10/20 01/11/20 01/12/20 23:59 23:59 23:59 Intake Total 1620 / 1620 3523.5 / 3523.5 1162.67 / 1162.67 Output Total 550 / 550 100 / 100 Balance 1620 / 1620 2973.5 / 2973.5 1062.67 / 1062.67 General: Alert, Oriented x3, Cooperative, No apparent distress HEENT: Atraumatic, PERRLA Oral: Moist Mucosa Neck: Supple, No JVD Lungs: Clear to auscultation, Normal air movement, No rhonchi, No wheeze Cardiovascular: Regular rate, Regular Rhythm, Normal S1, Normal S2 Abdomen: Bowel Sounds Present, Soft, Non Tender, Non-Distended, Obese Extremities: No Calf Tenderness Musculoskeletal: Tenderness - upon palpation and compression of right foot in the areas of the toes Psych/Mental Status: Alert and oriented to time, place, person, mood and affect Laboratory Results 01/11/20 09:15: COVID-19 (NIRAV) Negative 01/11/20 10:40: Urine Opiates Screen POSITIVE H, Urine Methadone Screen NEGATIVE, Ur Barbiturates Screen NEGATIVE, Ur Phencyclidine Scrn NEGATIVE, Ur Amphetamines Screen NEGATIVE, U Methamphetamin-MDMA NEGATIVE, U Benzodiazepines Scrn NEGATIVE, Urine Cocaine Screen NEGATIVE, U Cannabinoids Screen NEGATIVE 01/12/20 06:50: WBC 9.1, RBC 3.72 L, Hgb 10.8 L, Hct 34.6 L, MCV 93.0, MCH 29.0, MCHC 31.2 L, RDW Std Deviation 48.6 H, RDW Coeff of Dyana 14.4, Plt Count 207, MPV 11.1, Immature Gran % (Auto) 0.300, Neut % (Auto) 69.4, Lymph % (Auto) 17.1 L, [place] % (Auto) 10.5 H, Eos % (Auto) 1.8, Baso % (Auto) 0.9, Absolute Neuts (auto) 6.3, Absolute Lymphs (auto) 1.55, Nucleated RBC % 0 01/12/20 06:50: Sodium 140, Potassium 3.7, Chloride 112 H, Carbon Dioxide 23.0, Anion Gap 5, BUN 49 H, Creatinine 0.99, Estim Creat Clear Calc 57.28, Est GFR (MDRD) Af Amer 74, Est GFR (MDRD) Non-Af 61, BUN/Creatinine Ratio 49.5 H, Glucose 114 H, Calcium 7.6 L, Magnesium 2.2 STUDY: CT RIGHT ANKLE WITHOUT CONTRAST REASON FOR EXAM: Female, 59 years old. Rt ankle fracture after fall 01/09/20. Surgery today with external fixation in place. RADIATION DOSAGE (If Supplied By Facility): CTDIvol = ( 15.35 ) mGy, DLP = ( 581.41 ) mGycm TECHNIQUE: Thin section transaxial imaging of the ankle was obtained, with sagittal and coronal reconstructed images. Individualized dose optimization techniques were used for this CT. COMPARISON: None. FINDINGS: There is an obliquely oriented fracture through the distal third of the fibular shaft with minor separation of fracture fragments. There is associated tiny chip fracture of the distal fibular plafond with minor separation of fracture fragments. There is transversely oriented comminuted fracture through the distal tibial plafond with mild separation of fracture fragments. There is also an obliquely oriented intra-articular fracture through the distal posterior tibia with mild separation of fracture fragments. Normal tibiotalar articulation and talar dome. Normal talus, calcaneus, navicular and cuboid tarsal bones. Normal subtalar, talonavicular and calcaneocuboid articulations. Normal navicular-cuneiform, cuneiform tarsal bones and intercuneiform articulations. Normal tarsometatarsal articulations and visualized metatarsi. External fixators are noted traversing the mid tibial shaft as well as the calcaneus postsurgically. The soft tissue structures are grossly normal. CT/Extremity Lower without Contra IMPRESSION: Trimalleolar fracture of the ankle with fracture fragments in near anatomic alignment and position with external fixator pins in situ Electronically Signed: Demetrius Bruno MD at 17:36 EDT , Service support , STUDY: X-RAY - RIGHT FOOT CLINICAL: Female, 59 years old. POST OP CLOSED REDUCTION W/EXTERNAL FIX DEVICE TECHNIQUE: 3 view(s) of the foot. COMPARISON: None. FINDINGS: Postsurgical changes are noted status post closed reduction of previously noted trimalleolar fracture and external fixation device placement within the distal tibial shaft and calcaneus. RAD/Foot min 3 Views IMPRESSION: Status post closed reduction and external fixation device placement of acute trimalleolar fracture Electronically Signed: Demetrius Bruno MD at 19:20 EDT , Service support , STUDY: X-RAY - RIGHT TIBIA AND FIBULA REASON FOR EXAM: Female, 59 years old. POST OP CLOSED REDUCTION W/EXTERNAL FIX DEVICE TECHNIQUE: 2 view(s) of the tibia and fibula were obtained. COMPARISON: January 11, 2020 FINDINGS: Postsurgical changes status post closed reduction of bimalleolar fracture subluxation with external fixation device placement. Fracture fragments are in anatomic alignment and position. RAD/Tibia & Fibula 2 Views IMPRESSION: Status post closed reduction and external fixation device placement Electronically Signed: Demetrius Bruno MD at 16:42 EDT , Service support , Current Medications Acetaminophen (Tylenol) 650 mg PO Q6H PRN PRN PRN Reason: Pain Score 1-10/Temp > 100.7 F Last Admin: 01/12/20 10:45 Dose: 650 mg Documented by: Albuterol Sulfate (Ventolin Aerosols) 2.5 mg INHALATION Q2H PRN PRN PRN Reason: Shortness of Breath/Wheezing Baclofen (Lioresal) 10 mg PO TID PRN PRN Reason: MUSCLE SPASTICITY Last Admin: 01/12/20 00:28 Dose: 10 mg Documented by: Dextrose (D50w Syringe) 0 gm IV X1 PRN; Protocol PRN Reason: Hypoglycemia Duloxetine HCl (Cymbalta) 30 mg PO BID [facility] Last Admin: 01/12/20 09:32 Dose: 30 mg Documented by: Escitalopram Oxalate (Lexapro) 20 mg PO DAILY [facility] Last Admin: 01/12/20 09:32 Dose: 20 mg Documented by: Glucagon () 1 mg IM .X1 PRN PRN Reason: Hypoglycemia Hydromorphone HCl (Dilaudid Inj) 1 mg IV Q2H PRN PRN PRN Reason: Pain Score 6-10/10 Last Admin: 01/12/20 08:23 Dose: 1 mg Documented by: Sodium Chloride () 1,000 mls @ 100 mls/hr IV .Q10H [facility] Last Admin: 01/12/20 08:23 Dose: 100 mls/hr Documented by: Sodium Chloride () 250 mls @ 15 mls/hr IV .[id number] PRN PRN Reason: Saline Flush Sodium Chloride () 250 mls @ 15 mls/hr IV .[id number] PRN PRN Reason: Additional IVPB Infusion Clindamycin Phosphate 900 mg/ (Dextrose) 106 mls @ 150 mls/hr IV Q8 [facility] Last Infusion: 01/12/20 06:31 Dose: Infused Documented by: Montelukast Sodium (Singulair) 10 mg PO QHS [facility] Last Admin: 01/11/20 21:21 Dose: 10 mg Documented by: Ondansetron HCl (Zofran) 4 mg IV Q8H PRN PRN PRN Reason: NAUSEA/VOMITING Oxycodone HCl (Oxyir) 5 mg PO Q4H PRN PRN PRN Reason: Pain Score 4-5/10 Last Admin: 01/12/20 10:45 Dose: 5 mg Documented by: Pantoprazole Sodium (Protonix) 40 mg PO DAILY [facility] Last Admin: 01/12/20 09:32 Dose: 40 mg Documented by: Potassium Chloride (K-Dur) 40 meq PO DAILYCM [facility] Stop: 01/13/20 08:01 Last Admin: 01/12/20 10:40 Dose: 40 meq Documented by: Pravastatin Sodium (Pravachol) 20 mg PO DAILY@2200 [facility] Last Admin: 01/11/20 21:21 Dose: 20 mg Documented by: Pregabalin (Lyrica) 100 mg PO TID [facility] Last Admin: 01/12/20 05:47 Dose: 100 mg Documented by: Senna/Docusate Sodium (Senokot-S, Fayb-Colace) 2 tablet PO BID PRN PRN PRN Reason: Constipation Sodium Chloride () 10 - 40 ml IV UD PRN PRN Reason: SALINE FLUSH Topiramate (Topamax) 50 mg PO QHS [facility] Last Admin: 01/11/20 21:21 Dose: 50 mg Documented by: Medical Necessity - Tobacco Use Smoking Status: Current every day smoker Tobacco Use: Cigarettes Assessment/Plan All Active Problems (Last Reviewed 01/10/20 @ 21:[address] Quang Mcfarlane MD) Bimalleolar fracture of right ankle (Acute) Bimalleolar fracture of right ankle (Acute) Trimalleolar fracture of ankle, closed (Acute) Dislocation of right ankle joint, initial encounter (Acute) Drug overdose (Ruled-out) Morbid obesity (Resolved) Pericardial effusion (Resolved) Assessment: This is a 59-year-old female who is 1 day status post application of multiplane external fixator of the right lower extremity with a closed reduction of the right ankle joint. Plan: Patient chart reviewed and patient evaluated. Full discussion had with the patient about the patient's current clinical condition. Operative intervention discussed in detail with the patient. CT scan and radiographic findings post reduction discussed with the patient in detail. Once again, I did discuss with the patient that this is a multistep process. This external fixator will likely be left on for a period of 2 to 4 weeks, with subsequent removal and definitive internal fixation. Patient displayed verbal understanding. Patient states that she is agreeable to any further surgical intervention that is needed. At this time, I recommend the patient keep the dressing clean, dry, intact to the right lower extremity. Patient is to not remove the dressing. Patient did not get the dressing wet. I recommend the patient remain nonweightbearing to the right lower extremity with assistive devices. I recommend elevation of the right foot above the level of heart as often as possible. Furthermore, I recommend the devices used for elevation be placed on the patient's right calf so that the right heel is hanging off and nothing is touching the right heel or the external fixator pins. I recommend ice around the right knee 30 minutes every hour as needed. Prescriptions for antibiotic prophylaxis, DVT prophylaxis, and pain medication left in patient's chart. Patient states that she will be transferred to the [facility] for further care. Instructions will be left in the chart along with the prescriptions for further care and follow-up. At this time, there will be no further immediate surgical intervention by me while the patient is an inpatient. Patient will follow-up with me as an outpatient on January 19 for further evaluation. I discussed all the patient's instructions to her as well, and patient displayed verbal understanding. Thank you very much for the consultation and allowing me to take part in care of your patient. Inpatient E&M: 19998 Subs Hosp L2
--- NOTE | 2020-01-12 11:14 | PCM.DC.ORTHO ---
Discharge Activity: May Not Drive, May Not Shower, Use Walker, Use Crutches Weight Bearing Status: No weight bearing Keep extremity elevated above heart level: Right Leg Additional Activity Instructions:: 1. Keep the dressing clean, dry, intact to the right lower extremity. Do not remove the dressing. Do not get the dressing wet. If get dressing wet, call office for further instruction. 2. Ice around right knee 30 minutes every hour as needed. 3. Elevate right foot above level of heart as often as possible. Make sure device was used for elevation and placed underneath the right calf so that nothing is touching the right heel or the external fixator pins. 4. No walking or standing on right foot. Use crutches or other assistive devices as needed. 5. Begin taking postoperative antibiotics, DVT prophylaxis, and pain medication as instructed. Call your doctor if your incision/area has: Continuous Slow Oozing, Sudden Increased Bleeding Call your doctor if you observe: Fever of 101 or Higher, Shortness of breath, Increased palpitations (irregular heartbeat), Calf discomfort Cleanse incision/area with: Keep Dressing Clean & Dry Allergies/Adverse Reactions: Allergies Penicillins Allergy (Severe, Verified 01/10/20 18:20) vomiting aspirin Adverse Reaction (Verified 01/10/20 18:20) Upset Stomach HX OF ULCERS Medications to take at Discharge Albuterol Inhaler [Ventolin Hfa] 2 puff INHALATION Q4H PRN PRN 06/29/17 baclofen 20 mg tablet 20 mg PO TID PRN #90 tab 10/28/18 Buprenorphine 7.5 mcg TD TU 11/29/18 duloxetine 30 mg capsule,delayed release 30 mg PO BID 02/02/19 pregabalin 100 mg capsule 100 mg PO TID 03/25/19 Escitalopram Oxalate [Lexapro] 20 mg PO DAILY 12/22/19 Fenofibrate Nanocrystallized [Tricor] 48 mg PO DAILY 12/22/19 Montelukast [Singulair] 10 mg PO QHS 12/22/19 Pravastatin Sodium 20 mg PO DAILY 12/22/19 Topiramate [Topamax] 50 mg PO QHS 12/22/19 Lisinopril 11 tab PO DAILY 01/10/20 Omeprazole 1 tab PO DAILY 01/10/20 Primary Care Physician: Marlen Lucia MD [Primary Care Provider] - Test Results: Test results from this visit will be discussed in further detail at your follow-up appointment, if applicable. Please Follow Up With: David Washington DPM When: On 01/20/2020 in [place] Office. Call [phone] to schedule appt
--- NOTE | 2020-01-12 14:56 | PCM.PROGNOTE ---
<Yamileth Rodrigues - Last Filed: 01/12/20 15:07> Patient Problems: Active and Suspected Problems (Last Reviewed 01/10/20 @ 21:[address] Quang Mcfarlane MD) Bimalleolar fracture of right ankle (Acute) Bimalleolar fracture of right ankle (Acute) Trimalleolar fracture of ankle, closed (Acute) Dislocation of right ankle joint, initial encounter (Acute) Subjective: Patient seen and examined. Reports pain is well controlled at this time. Denies other complaints. Plan for SNF pending acceptance. - Physical Exam Vitals/I&O's: Vital Signs Temp Pulse Resp BP Pulse Ox 97.9 F 78 18 104/48 L 96 01/12/20 09:27 01/12/20 12:52 01/12/20 09:27 01/12/20 12:52 01/12/20 09:27 Oxygen Flow Rate (L/min) [2] 4 Oxygen Flow Rate (L/min) [1 ( 97 Initial Baseline)] Oxygen Flow Rate (L/min) 2 Oxygen Delivery Method [3] Nasal Cannula Oxygen Delivery Method [2] Nasal Cannula Oxygen Delivery Method [1 ( Nasal Cannula Initial Baseline)] Oxygen Delivery Method Room Air Weight: 192 lb 0.362 oz Body Mass Index (BMI) 30.9 Intake and Output for Last 24 Hours 01/10/20 01/11/20 01/12/20 23:59 23:59 23:59 Intake Total 1620 / 1620 3523.5 / 3523.5 1730.67 / 1730.67 Output Total 550 / 550 300 / 300 Balance 1620 / 1620 2973.5 / 2973.5 1430.67 / 1430.67 General: Alert, Oriented x3, Cooperative HEENT: Atraumatic, PERRLA, EOMI, Normocephalic Neck: Supple, No JVD, Negative Carotid Bruits Lungs: Clear to auscultation, Normal air movement Cardiovascular: Regular rate, No murmurs Abdomen: Bowel Sounds Present, Soft, Non Tender, Non-Distended Extremities: No clubbing, No cyanosis, No edema, Capillary Refill Less than 3 Seconds Skin: No rashes, No breakdown, - - Right foot postop dressing intact Musculoskeletal: No Tenderness to Palpation of Joints or Extremities Neurological: Cranial nerves II-XII grossly intact, Neuro grossly intact Psych/Mental Status: Normal Affect, Appropriate Laboratory Results 01/12/20 06:50: WBC 9.1, RBC 3.72 L, Hgb 10.8 L, Hct 34.6 L, MCV 93.0, MCH 29.0, MCHC 31.2 L, RDW Std Deviation 48.6 H, RDW Coeff of Dyana 14.4, Plt Count 207, MPV 11.1, Immature Gran % (Auto) 0.300, Neut % (Auto) 69.4, Lymph % (Auto) 17.1 L, [place] % (Auto) 10.5 H, Eos % (Auto) 1.8, Baso % (Auto) 0.9, Absolute Neuts (auto) 6.3, Absolute Lymphs (auto) 1.55, Nucleated RBC % 0 01/12/20 06:50: Sodium 140, Potassium 3.7, Chloride 112 H, Carbon Dioxide 23.0, Anion Gap 5, BUN 49 H, Creatinine 0.99, Estim Creat Clear Calc 57.28, Est GFR (MDRD) Af Amer 74, Est GFR (MDRD) Non-Af 61, BUN/Creatinine Ratio 49.5 H, Glucose 114 H, Calcium 7.6 L, Magnesium 2.2 Current Medications Acetaminophen (Tylenol) 650 mg PO Q6H PRN PRN PRN Reason: Pain Score 1-10/Temp > 100.7 F Last Admin: 01/12/20 10:45 Dose: 650 mg Documented by: Albuterol Sulfate (Ventolin Aerosols) 2.5 mg INHALATION Q2H PRN PRN PRN Reason: Shortness of Breath/Wheezing Baclofen (Lioresal) 10 mg PO TID PRN PRN Reason: MUSCLE SPASTICITY Last Admin: 01/12/20 00:28 Dose: 10 mg Documented by: Dextrose (D50w Syringe) 0 gm IV X1 PRN; Protocol PRN Reason: Hypoglycemia Duloxetine HCl (Cymbalta) 30 mg PO BID [facility] Last Admin: 01/12/20 09:32 Dose: 30 mg Documented by: Escitalopram Oxalate (Lexapro) 20 mg PO DAILY [facility] Last Admin: 01/12/20 09:32 Dose: 20 mg Documented by: Glucagon () 1 mg IM .X1 PRN PRN Reason: Hypoglycemia Hydromorphone HCl (Dilaudid Inj) 1 mg IV Q2H PRN PRN PRN Reason: Pain Score 6-10/10 Last Admin: 01/12/20 13:03 Dose: 1 mg Documented by: Sodium Chloride () 1,000 mls @ 100 mls/hr IV .Q10H [facility] Last Admin: 01/12/20 08:23 Dose: 100 mls/hr Documented by: Sodium Chloride () 250 mls @ 15 mls/hr IV .[id number] PRN PRN Reason: Saline Flush Sodium Chloride () 250 mls @ 15 mls/hr IV .[id number] PRN PRN Reason: Additional IVPB Infusion Clindamycin Phosphate 900 mg/ (Dextrose) 106 mls @ 150 mls/hr IV Q8 [facility] Last Infusion: 01/12/20 13:47 Dose: Infused Documented by: Montelukast Sodium (Singulair) 10 mg PO QHS [facility] Last Admin: 01/11/20 21:21 Dose: 10 mg Documented by: Ondansetron HCl (Zofran) 4 mg IV Q8H PRN PRN PRN Reason: NAUSEA/VOMITING Oxycodone HCl (Oxyir) 5 mg PO Q4H PRN PRN PRN Reason: Pain Score 4-5/10 Last Admin: 01/12/20 10:45 Dose: 5 mg Documented by: Pantoprazole Sodium (Protonix) 40 mg PO DAILY [facility] Last Admin: 01/12/20 09:32 Dose: 40 mg Documented by: Potassium Chloride (K-Dur) 40 meq PO DAILYCM [facility] Stop: 01/13/20 08:01 Last Admin: 01/12/20 10:40 Dose: 40 meq Documented by: Pravastatin Sodium (Pravachol) 20 mg PO DAILY@2200 [facility] Last Admin: 01/11/20 21:21 Dose: 20 mg Documented by: Pregabalin (Lyrica) 100 mg PO TID [facility] Last Admin: 01/12/20 13:08 Dose: 100 mg Documented by: Senna/Docusate Sodium (Senokot-S, Faby-Colace) 2 tablet PO BID PRN PRN PRN Reason: Constipation Sodium Chloride () 10 - 40 ml IV UD PRN PRN Reason: SALINE FLUSH Topiramate (Topamax) 50 mg PO QHS [facility] Last Admin: 01/11/20 21:21 Dose: 50 mg Documented by: Medical Necessity - Tobacco Use Smoking Status: Current every day smoker Tobacco Use: Cigarettes Assessment/Plan All Active Problems (Last Reviewed 01/10/20 @ 21:[address] Quang Mcfarlane MD) Bimalleolar fracture of right ankle (Acute) Bimalleolar fracture of right ankle (Acute) Trimalleolar fracture of ankle, closed (Acute) Dislocation of right ankle joint, initial encounter (Acute) Drug overdose (Ruled-out) Morbid obesity (Resolved) Pericardial effusion (Resolved) 1. Acute traumatic right trimalleolar fracture status post closed reduction of right ankle trimalleolar fracture with external fixation 01/11/[address] Washington-management per podiatry. Nonweightbearing right lower extremity. Outpatient follow-up January 19. PRN pain regimen. PT/OT. SNF pending acceptance. 2. Acute kidney injury with acute rhabdomyolysis- resolved with IV fluids. 3. Nasal fracture, acute versus chronic per imaging-outpatient follow-up with maxillofacial surgeon. 4. History of chronic pain disorder-on buprenorphine patch, baclofen and Lyrica. 5. History of seizures-continue Topamax. 6. Chronic intermittent asthma-no exacerbation. As needed albuterol aerosol. Continue Singulair. 7. Hypertension-stable, lisinopril on hold. 8. Depression-continue duloxetine, Lexapro. Patient's family member reports patient has been using various substances and has had increased depression following recent of her mother. Patient will need psychiatric referral at discharge. 9. GERD-continue PPI. 10. Hyperlipidemia-continue statin, fenofibrate. DVT prophylaxis- Lovenox sc This patient was seen by LACEY Vega under the supervision of Dr. Mireles. <Daniel Mireles - Last Filed: 01/12/20 16:09> Objective: Patient periorbital edema has improved. Still swelling on the nose. Right lower leg has Ishmael wrap bandage with external fixator. No fever. General: Alert, Oriented x3, Cooperative HEENT: PERRLA, EOMI, Normocephalic, Bruise over both eyes, black color more on the left eye. Tenderness on the nasal bridge. No conjunctival injection or redness or conjunctival edema. Oral: No Gingival or Mucosal Lesions/ Ulcerations Neck: Supple, No JVD, Negative Carotid Bruits Lungs: Clear to auscultation, No rhonchi, No wheeze, Air entry diminished on bilateral lung bases. Cardiovascular: Regular rate, Regular Rhythm, Normal S1, Normal S2, No murmurs Abdomen: Bowel Sounds Present, Soft, Non Tender, Non-Distended Extremities: Capillary Refill Less than 3 Seconds, Edema - Edema of right leg Skin: No rashes, No breakdown Musculoskeletal: Arthritic Changes,Tenderness of right ankle with Ishmael wrap bandage. No passive or active motion possible., At close reduction with external fixation of the right ankle fracture Neurological: Cranial nerves II-XII grossly intact, Deep Tendon Reflexes 2+/4 and Symmetrical, Neuro grossly intact, Psych/Mental Status: Normal Affect, Appropriate - Physical Exam Vitals/I&O's: Vital Signs Temp Pulse Resp BP Pulse Ox 97.2 F L 72 18 100/59 L 95 01/12/20 15:27 01/12/20 15:27 01/12/20 15:27 01/12/20 15:27 01/12/20 15:27 Oxygen Flow Rate (L/min) [2] 4 Oxygen Flow Rate (L/min) [1 ( 97 Initial Baseline)] Oxygen Flow Rate (L/min) 2 Oxygen Delivery Method [3] Nasal Cannula Oxygen Delivery Method [2] Nasal Cannula Oxygen Delivery Method [1 ( Nasal Cannula Initial Baseline)] Oxygen Delivery Method Room Air Weight: 192 lb 0.362 oz Body Mass Index (BMI) 30.9 Intake and Output for Last 24 Hours 01/10/20 01/11/20 01/12/20 23:59 23:59 23:59 Intake Total 1620 / 1620 3523.5 / 3523.5 1730.67 / 1730.67 Output Total 550 / 550 300 / 300 Balance 1620 / 1620 2973.5 / 2973.5 1430.67 / 1430.67 Laboratory Results 01/12/20 06:50: WBC 9.1, RBC 3.72 L, Hgb 10.8 L, Hct 34.6 L, MCV 93.0, MCH 29.0, MCHC 31.2 L, RDW Std Deviation 48.6 H, RDW Coeff of Dyana 14.4, Plt Count 207, MPV 11.1, Immature Gran % (Auto) 0.300, Neut % (Auto) 69.4, Lymph % (Auto) 17.1 L, [place] % (Auto) 10.5 H, Eos % (Auto) 1.8, Baso % (Auto) 0.9, Absolute Neuts (auto) 6.3, Absolute Lymphs (auto) 1.55, Nucleated RBC % 0 01/12/20 06:50: Sodium 140, Potassium 3.7, Chloride 112 H, Carbon Dioxide 23.0, Anion Gap 5, BUN 49 H, Creatinine 0.99, Estim Creat Clear Calc 57.28, Est GFR (MDRD) Af Amer 74, Est GFR (MDRD) Non-Af 61, BUN/Creatinine Ratio 49.5 H, Glucose 114 H, Calcium 7.6 L, Magnesium 2.2 Current Medications Acetaminophen (Tylenol) 650 mg PO Q6H PRN PRN PRN Reason: Pain Score 1-10/Temp > 100.7 F Last Admin: 01/12/20 10:45 Dose: 650 mg Documented by: Albuterol Sulfate (Ventolin Aerosols) 2.5 mg INHALATION Q2H PRN PRN PRN Reason: Shortness of Breath/Wheezing Baclofen (Lioresal) 10 mg PO TID PRN PRN Reason: MUSCLE SPASTICITY Last Admin: 01/12/20 00:28 Dose: 10 mg Documented by: Dextrose (D50w Syringe) 0 gm IV X1 PRN; Protocol PRN Reason: Hypoglycemia Duloxetine HCl (Cymbalta) 30 mg PO BID [facility] Last Admin: 01/12/20 09:32 Dose: 30 mg Documented by: Enoxaparin Sodium (Lovenox) 40 mg SC DAILY@0600 [facility] Escitalopram Oxalate (Lexapro) 20 mg PO DAILY [facility] Last Admin: 01/12/20 09:32 Dose: 20 mg Documented by: Glucagon () 1 mg IM .X1 PRN PRN Reason: Hypoglycemia Hydromorphone HCl (Dilaudid Inj) 1 mg IV Q2H PRN PRN PRN Reason: Pain Score 6-10/10 Last Admin: 01/12/20 13:03 Dose: 1 mg Documented by: Sodium Chloride () 1,000 mls @ 100 mls/hr IV .Q10H [facility] Last Admin: 01/12/20 08:23 Dose: 100 mls/hr Documented by: Sodium Chloride () 250 mls @ 15 mls/hr IV .[id number] PRN PRN Reason: Saline Flush Sodium Chloride () 250 mls @ 15 mls/hr IV .[id number] PRN PRN Reason: Additional IVPB Infusion Clindamycin Phosphate 900 mg/ (Dextrose) 106 mls @ 150 mls/hr IV Q8 [facility] Last Infusion: 01/12/20 13:47 Dose: Infused Documented by: Montelukast Sodium (Singulair) 10 mg PO QHS [facility] Last Admin: 01/11/20 21:21 Dose: 10 mg Documented by: Ondansetron HCl (Zofran) 4 mg IV Q8H PRN PRN PRN Reason: NAUSEA/VOMITING Oxycodone HCl (Oxyir) 5 mg PO Q4H PRN PRN PRN Reason: Pain Score 4-5/10 Last Admin: 01/12/20 15:34 Dose: 5 mg Documented by: Pantoprazole Sodium (Protonix) 40 mg PO DAILY [facility] Last Admin: 01/12/20 09:32 Dose: 40 mg Documented by: Potassium Chloride (K-Dur) 40 meq PO DAILYCM [facility] Stop: 01/13/20 08:01 Last Admin: 01/12/20 10:40 Dose: 40 meq Documented by: Pravastatin Sodium (Pravachol) 20 mg PO DAILY@2200 [facility] Last Admin: 01/11/20 21:21 Dose: 20 mg Documented by: Pregabalin (Lyrica) 100 mg PO TID [facility] Last Admin: 01/12/20 13:08 Dose: 100 mg Documented by: Senna/Docusate Sodium (Senokot-S, Faby-Colace) 2 tablet PO BID PRN PRN PRN Reason: Constipation Last Admin: 01/12/20 15:33 Dose: 2 tablet Documented by: Sodium Chloride () 10 - 40 ml IV UD PRN PRN Reason: SALINE FLUSH Topiramate (Topamax) 50 mg PO QHS [facility] Last Admin: 01/11/20 21:21 Dose: 50 mg Documented by: Assessment/Plan This patient was seen in conjunction with PIG FARMERYamileth. I have independently interviewed and examined the patient and reviewed pertinent history, examination findings, laboratory and plan of management. I have reviewed the note and agree with the documented findings with the few additional points. In brief, patient is admitted for multiple fall day before admission resulting into acute right trimalleolar fracture with associated medial malleolus dislocation: There is also a spiral fracture of distal fibular shaft with minor separation of fracture segments. Brewery Pumper was consulted. Dr. Washington saw the patient and had closed reduction of right ankle with external fixator on 01/11/2020. H&H stable. Leukocytosis resolved. ABRAM with mild rhabdomyolysis: CK 3063. BUN/creatinine 72/2.2, improved to 66/1.43 suggestive of acute kidney injury, prerenal etiology. BUN improving. Creatinine normal. Continue IV fluid normal saline. Follow-up CK level. Hold lisinopril. Nasal bone fracture: Patient can follow-up with maxillofacial oral surgeon as an outpatient. CT head and C-spine no acute change. Mild discoid atelectasis of left lung base. Other chronic comorbidities include seizures/epilepsy syndrome nonspecific, asthma, chronic pain disorder: It seems patient buprenorphine patch 7.5 mcg weekly and Topamax, duloxetine and baclofen. Dyslipidemia: Hold fenofibrate. Diminished left foot pulse: Left MARLENE 1.0. I have discussed my assessment with Yamileth ATKINS and orders have been reviewed. Inpatient E&M: 47288 Subs Hosp L2
[2020-01-12] MEDS: Senna/Docusate Sodium 1 Tablet 2 TABLET PO (15:33)
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
--- NOTE | 2020-01-12 16:48 | CHAPLAIN ---
Type of Pastoral Visit _x__ Initial Visit ___ Follow-up Visit ___ On-call Visit ___ General Patient Visit ___ Spiritual Assessment ___ Family Conference ___ Bereavement ___ Rapid Response ___ Code Blue ___ Other (describe below) Pastoral Care Referral From _x__ Patient ___ Family ___ Nurse ___ Physician ___ Leasing Sales Consultant ___ Terminal Make Up Operator ___ Other (describe below) Sacrament/Intervention _x__ Active listening ___ Anointing ___ Adventist _x__ Bereavement ___ Communion ___ Monika exploration ___ _x__ Life review _x__ Prayer ___ Reconciliation ___ Sacrament of Sick _x__ Supportive presence ___ Wedding ___ Other (describe below) Pastoral Comments patient is sitting up in chair but has head down until this acidity tester walks into room and she becomes attentive; pt is talkative however it takes her time to get her words completed and then she 'nods off' during conversation; pt expresses thankfulness several times for the visit but would then 'nod off' again; pt describes some details of fall and then reports the of her mother just earlier this year; pt welcomes support and would like future visits but this encounter ended due to inability of pt to stay awake; pt did request prayer; pt stated she used to go to a [employer] but has not been attending nor active; patient asked about family support and she indicates she has a brother
[2020-01-12] MEDS: Topiramate 50 MG Tablet PO (21:50)
[2020-01-12] MEDS: Pravastatin 20 MG Tablet PO (21:50)
[2020-01-12] MEDS: Montelukast 10 MG Tablet PO (21:50)
[2020-01-13] VITALS (10 sets, daily range): BP systolic 118–160; BP diastolic 69–90; PULSE 70–89; RESP 16–20; TEMP 36.6–36.9; O2SAT 95–98
[2020-01-13] MEDS: HYDROmorphone 1 MG/ML Syringe IV (00:16)
[2020-01-13] MEDS: Acetaminophen 325 MG Tablet 650 MG PO ×2 (02:42→20:30)
[2020-01-13] MEDS: Pregabalin 50 MG Capsule 100 MG PO ×3 (05:09→21:19)
[2020-01-13] MEDS: Senna/Docusate Sodium 1 Tablet 2 TABLET PO (05:09)
[2020-01-13] MEDS: oxyCODONE 5 MG Tablet PO ×4 (05:09→18:07)
[2020-01-13] MEDS: 0.9% Normal Saline 1,000 ML 100 ML IV (05:09)
[2020-01-13 06:38] LABS: CPK Total, Creatine Kinase 384 U/L (26-192)
--- NOTE | 2020-01-13 07:20 | RAD_ITS ---
STUDY: X-RAY CHEST REASON FOR EXAM: Female, 59 years old. Tachypnea and pulmonary congestion. TECHNIQUE: AP upright portable view. COMPARISON: 01/10/2020. FINDINGS: Curvilinear subsegmental atelectasis in the left upper lobe. No suspicious infiltrates. There is no demonstrated pleural abnormality. Normal size heart. Normal mediastinum and shyla. Normal visualized pulmonary arteries. Normal visualized aortic arch and descending thoracic aorta. Normal visualized thoracic spine. Normal visualized ribs, clavicles, and shoulders. There is no demonstrated abnormality of the visualized soft tissue structures of the upper abdomen. RAD/Chest 1 View (Portable) IMPRESSION: 1. Curvilinear subsegmental atelectasis in the left upper lobe. 2. No other additional findings or changes since 01/10/2020. Electronically Signed: Seng Gibson MD at 9:02 EDT , Service support ,
[2020-01-13] MEDS: Pantoprazole Sodium 40 MG Tablet PO (07:51)
[2020-01-13] MEDS: DULoxetine Hcl 30 MG Capsule PO ×2 (07:51→21:16)
[2020-01-13] MEDS: Escitalopram Oxalate 20 MG Tablet PO (07:52)
--- NOTE | 2020-01-13 10:55 | PN_ITS ---
<Yamileth Rodrigues - Last Filed: 01/13/20 11:00> Patient Problems: Active and Suspected Problems (Last Reviewed 01/10/20 @ 21:[address] Quang Mcfarlane MD) Bimalleolar fracture of right ankle (Acute) Bimalleolar fracture of right ankle (Acute) Trimalleolar fracture of ankle, closed (Acute) Dislocation of right ankle joint, initial encounter (Acute) Subjective: Patient seen and examined. Denies significant pain. No acute events overnight. Waiting on SNF acceptance. - Physical Exam Vitals/I&O's: Vital Signs Temp Pulse Resp BP Pulse Ox 97.9 F 79 18 153/74 H 97 01/13/20 09:57 01/13/20 09:57 01/13/20 09:57 01/13/20 09:57 01/13/20 09:57 Oxygen Flow Rate (L/min) [2] 4 Oxygen Flow Rate (L/min) [1 ( 97 Initial Baseline)] Oxygen Flow Rate (L/min) 2 Oxygen Delivery Method [3] Nasal Cannula Oxygen Delivery Method [2] Nasal Cannula Oxygen Delivery Method [1 ( Nasal Cannula Initial Baseline)] Oxygen Delivery Method Room Air Weight: 192 lb 0.362 oz Body Mass Index (BMI) 30.9 Intake and Output for Last 24 Hours 01/11/20 01/12/20 01/13/20 23:59 23:59 23:59 Intake Total 3523.5 / 3523.5 3956.67 / 3956.67 1180.50 / 1180.50 Output Total 550 / 550 1200 / 1200 600 / 600 Balance 2973.5 / 2973.5 2756.67 / 2756.67 580.50 / 580.50 General: Alert, Oriented x3, Cooperative HEENT: Atraumatic, PERRLA, EOMI, Normocephalic Neck: Supple, No JVD, Negative Carotid Bruits Lungs: Clear to auscultation, Normal air movement Cardiovascular: Regular rate, No murmurs Abdomen: Bowel Sounds Present, Soft, Non Tender, Non-Distended Extremities: No clubbing, No cyanosis, No edema, Capillary Refill Less than 3 Seconds Skin: No rashes, No breakdown, - - Right foot postop dressing intact Musculoskeletal: No Tenderness to Palpation of Joints or Extremities Neurological: Cranial nerves II-XII grossly intact, Neuro grossly intact Psych/Mental Status: Normal Affect, Appropriate Laboratory Results 01/13/20 05:16: Total Creatine Kinase 384 H Current Medications Acetaminophen (Tylenol) 650 mg PO Q6H PRN PRN PRN Reason: Pain Score 1-10/Temp > 100.7 F Last Admin: 01/13/20 02:42 Dose: 650 mg Documented by: Albuterol Sulfate (Ventolin Aerosols) 2.5 mg INHALATION Q2H PRN PRN PRN Reason: Shortness of Breath/Wheezing Baclofen (Lioresal) 10 mg PO TID PRN PRN Reason: MUSCLE SPASTICITY Last Admin: 01/12/20 00:28 Dose: 10 mg Documented by: Dextrose (D50w Syringe) 0 gm IV X1 PRN; Protocol PRN Reason: Hypoglycemia Duloxetine HCl (Cymbalta) 30 mg PO BID [facility] Last Admin: 01/13/20 07:51 Dose: 30 mg Documented by: Enoxaparin Sodium (Lovenox) 40 mg SC DAILY@0600 [facility] Last Admin: 01/13/20 05:56 Dose: Not Given Documented by: Escitalopram Oxalate (Lexapro) 20 mg PO DAILY [facility] Last Admin: 01/13/20 07:52 Dose: 20 mg Documented by: Glucagon () 1 mg IM .X1 PRN PRN Reason: Hypoglycemia Hydromorphone HCl (Dilaudid Inj) 1 mg IV Q2H PRN PRN PRN Reason: Pain Score 6-10/10 Last Admin: 01/13/20 00:16 Dose: 1 mg Documented by: Sodium Chloride () 250 mls @ 15 mls/hr IV .[id number] PRN PRN Reason: Saline Flush Sodium Chloride () 250 mls @ 15 mls/hr IV .[id number] PRN PRN Reason: Additional IVPB Infusion Clindamycin Phosphate 900 mg/ (Dextrose) 106 mls @ 150 mls/hr IV Q8 [facility] Last Infusion: 01/13/20 05:53 Dose: Infused Documented by: Sodium Chloride () 250 mls @ 15 mls/hr IV .[id number] PRN PRN Reason: Saline Flush Sodium Chloride () 250 mls @ 15 mls/hr IV .[id number] PRN PRN Reason: Additional IVPB Infusion Montelukast Sodium (Singulair) 10 mg PO QHS [facility] Last Admin: 01/12/20 21:50 Dose: 10 mg Documented by: Ondansetron HCl (Zofran) 4 mg IV Q8H PRN PRN PRN Reason: NAUSEA/VOMITING Oxycodone HCl (Oxyir) 5 mg PO Q4H PRN PRN PRN Reason: Pain Score 4-10/10 Last Admin: 01/13/20 10:04 Dose: 5 mg Documented by: Pantoprazole Sodium (Protonix) 40 mg PO DAILY [facility] Last Admin: 01/13/20 07:51 Dose: 40 mg Documented by: Pravastatin Sodium (Pravachol) 20 mg PO DAILY@2200 [facility] Last Admin: 01/12/20 21:50 Dose: 20 mg Documented by: Pregabalin (Lyrica) 100 mg PO TID [facility] Last Admin: 01/13/20 05:09 Dose: 100 mg Documented by: Senna/Docusate Sodium (Senokot-S, Faby-Colace) 2 tablet PO BID PRN PRN PRN Reason: Constipation Last Admin: 01/13/20 05:09 Dose: 2 tablet Documented by: Sodium Chloride () 10 - 40 ml IV UD PRN PRN Reason: SALINE FLUSH Topiramate (Topamax) 50 mg PO QHS [facility] Last Admin: 01/12/20 21:50 Dose: 50 mg Documented by: Medical Necessity - Tobacco Use Smoking Status: Current every day smoker Tobacco Use: Cigarettes Assessment/Plan All Active Problems (Last Reviewed 01/10/20 @ 21:[address] Quang Mcfarlane MD) Bimalleolar fracture of right ankle (Acute) Bimalleolar fracture of right ankle (Acute) Trimalleolar fracture of ankle, closed (Acute) Dislocation of right ankle joint, initial encounter (Acute) Drug overdose (Ruled-out) Morbid obesity (Resolved) Pericardial effusion (Resolved) 1. Acute traumatic right trimalleolar fracture status post closed reduction of right ankle trimalleolar fracture with external fixation 01/11/[address] Washington- management per podiatry. Nonweightbearing right lower extremity. Outpatient follow-up January 19. PRN pain regimen. PT/OT. SNF pending acceptance. 2. Acute kidney injury with acute rhabdomyolysis- resolved with IV fluids. 3. Nasal fracture, acute versus chronic per imaging-outpatient follow-up with maxillofacial surgeon. 4. History of chronic pain disorder-on buprenorphine patch, baclofen and Lyrica. 5. History of seizures-continue Topamax. 6. Chronic intermittent asthma-no exacerbation. As needed albuterol aerosol. Continue Singulair. 7. Hypertension-stable, lisinopril on hold. 8. Depression-continue duloxetine, Lexapro. Patient's family member reports patient has been using various substances and has had increased depression following recent of her mother. Patient will need psychiatric referral at discharge. 9. GERD-continue PPI. 10. Hyperlipidemia-continue statin, fenofibrate. DVT prophylaxis- Lovenox sc This patient was seen by LACEY Vega under the supervision of Dr. Mireles. <Daniel Mireles - Last Filed: 01/13/20 14:38> Objective: Patient periorbital edema has improved. Patient has history of COPD and is smoking since teenage about 45 years. X-ray was done in the morning. On physical exam General: Alert, Oriented x3, Cooperative HEENT: PERRLA, EOMI, Normocephalic, Bruise over both eyes, more on left eye have improved. Tenderness on the nasal bridge. No conjunctival injection or redness or conjunctival edema. Oral: No Gingival or Mucosal Lesions/ Ulcerations Neck: Supple, No JVD, Negative Carotid Bruits Lungs: Air entry diminished on bilateral lung bases. Expiratory coarse rhonchi present. Mild occasional wheezing Cardiovascular: Regular rate, Regular Rhythm, Normal S1, Normal S2, No murmurs Abdomen: Bowel Sounds Present, Soft, Non Tender, Non-Distended Extremities: Capillary Refill Less than 3 Seconds, Edema of right leg Skin: No rashes, No breakdown Musculoskeletal: Arthritic Changes,Tenderness of right ankle with Ishmael wrap bandage. No passive or active motion possible., At close reduction with external fixation of the right ankle fracture Neurological: Cranial nerves II-XII grossly intact, Deep Tendon Reflexes 2+/4 and Symmetrical, Neuro grossly intact, Psych/Mental Status: Normal Affect, Appropriate - Physical Exam Vitals/I&O's: Vital Signs Temp Pulse Resp BP Pulse Ox 98.4 F 80 20 H 160/85 H 97 01/13/20 14:07 01/13/20 14:16 01/13/20 14:07 01/13/20 14:07 01/13/20 14:07 Oxygen Flow Rate (L/min) [2] 4 Oxygen Flow Rate (L/min) [1 ( 97 Initial Baseline)] Oxygen Flow Rate (L/min) 2 Oxygen Delivery Method [3] Nasal Cannula Oxygen Delivery Method [2] Nasal Cannula Oxygen Delivery Method [1 ( Nasal Cannula Initial Baseline)] Oxygen Delivery Method Room Air Weight: 192 lb 0.362 oz Body Mass Index (BMI) 30.9 Intake and Output for Last 24 Hours 01/11/20 01/12/20 01/13/20 23:59 23:59 23:59 Intake Total 3523.5 / 3523.5 3956.67 / 3956.67 1180.50 / 1180.50 Output Total 550 / 550 1200 / 1200 600 / 600 Balance 2973.5 / 2973.5 2756.67 / 2756.67 580.50 / 580.50 Laboratory Results 01/11/20 07:10: CK Isoenzymes Cancelled, CK-MM (CK-3) Cancelled, CK-MB (CK-2) Cancelled, CK-BB (CK-1) Cancelled, CK Isoenzymes Interp Cancelled, Macro CK Cancelled, Macro CK Type I Cancelled, Macro CK Type II Cancelled 01/13/20 05:16: Total Creatine Kinase 384 H Current Medications Acetaminophen (Tylenol) 650 mg PO Q6H PRN PRN PRN Reason: Pain Score 1-10/Temp > 100.7 F Last Admin: 01/13/20 02:42 Dose: 650 mg Documented by: Albuterol Sulfate (Ventolin Aerosols) 2.5 mg INHALATION Q2H PRN PRN PRN Reason: Shortness of Breath/Wheezing Baclofen (Lioresal) 10 mg PO TID PRN PRN Reason: MUSCLE SPASTICITY Last Admin: 01/12/20 00:28 Dose: 10 mg Documented by: Dextrose (D50w Syringe) 0 gm IV X1 PRN; Protocol PRN Reason: Hypoglycemia Duloxetine HCl (Cymbalta) 30 mg PO BID [facility] Last Admin: 01/13/20 07:51 Dose: 30 mg Documented by: Enoxaparin Sodium (Lovenox) 40 mg SC DAILY@0600 [facility] Last Admin: 01/13/20 05:56 Dose: Not Given Documented by: Escitalopram Oxalate (Lexapro) 20 mg PO DAILY [facility] Last Admin: 01/13/20 07:52 Dose: 20 mg Documented by: Glucagon () 1 mg IM .X1 PRN PRN Reason: Hypoglycemia Hydromorphone HCl (Dilaudid Inj) 1 mg IV Q2H PRN PRN PRN Reason: Pain Score 6-10/10 Last Admin: 01/13/20 00:16 Dose: 1 mg Documented by: Sodium Chloride () 250 mls @ 15 mls/hr IV .[id number] PRN PRN Reason: Saline Flush Sodium Chloride () 250 mls @ 15 mls/hr IV .[id number] PRN PRN Reason: Additional IVPB Infusion Clindamycin Phosphate 900 mg/ (Dextrose) 106 mls @ 150 mls/hr IV Q8 [facility] Last Admin: 01/13/20 14:10 Dose: 150 mls/hr Documented by: Sodium Chloride () 250 mls @ 15 mls/hr IV .[id number] PRN PRN Reason: Saline Flush Sodium Chloride () 250 mls @ 15 mls/hr IV .[id number] PRN PRN Reason: Additional IVPB Infusion Montelukast Sodium (Singulair) 10 mg PO QHS [facility] Last Admin: 01/12/20 21:50 Dose: 10 mg Documented by: Ondansetron HCl (Zofran) 4 mg IV Q8H PRN PRN PRN Reason: NAUSEA/VOMITING Oxycodone HCl (Oxyir) 5 mg PO Q4H PRN PRN PRN Reason: Pain Score 4-10/10 Last Admin: 01/13/20 14:09 Dose: 5 mg Documented by: Pantoprazole Sodium (Protonix) 40 mg PO DAILY [facility] Last Admin: 01/13/20 07:51 Dose: 40 mg Documented by: Pravastatin Sodium (Pravachol) 20 mg PO DAILY@2200 [facility] Last Admin: 01/12/20 21:50 Dose: 20 mg Documented by: Pregabalin (Lyrica) 100 mg PO TID [facility] Last Admin: 01/13/20 14:10 Dose: 100 mg Documented by: Senna/Docusate Sodium (Senokot-S, Faby-Colace) 2 tablet PO BID PRN PRN PRN Reason: Constipation Last Admin: 01/13/20 05:09 Dose: 2 tablet Documented by: Sodium Chloride () 10 - 40 ml IV UD PRN PRN Reason: SALINE FLUSH Last Admin: 01/13/20 14:10 Dose: 20 ml Documented by: Topiramate (Topamax) 50 mg PO QHS [facility] Last Admin: 01/12/20 21:50 Dose: 50 mg Documented by: Assessment/Plan This patient was seen in conjunction with Yamileth ATKINS. I have independently interviewed and examined the patient and reviewed pertinent history, examination findings, laboratory and plan of management. I have reviewed the note and agree with the documented findings with the few additional points. In brief, patient is admitted for multiple fall day before admission resulting into acute right trimalleolar fracture with associated medial malleolus dislocation: There is also a spiral fracture of distal fibular shaft with minor separation of fracture segments. Childcare Attendant was consulted. Dr. Washington saw the patient and had closed reduction of right ankle with external fixator on 01/11/2020. H&H stable. Leukocytosis resolved. ABRAM with mild rhabdomyolysis: CK 3063. BUN/creatinine 72/2.2, improved to 66/1.43 suggestive of acute kidney injury, prerenal etiology. BUN improving. Creatinine normal. 01/12: IV fluid discontinued. Mild coarse rhonchi and fine wheezing in the lungs. Total CK improved to 384. Nasal bone fracture: Patient can follow-up with maxillofacial oral surgeon as an outpatient. CT head and C-spine no acute change. Repeat chest x-ray shows curvilinear atelectasis of left upper lobe. Other chronic comorbidities include seizures/epilepsy syndrome nonspecific, asthma, chronic pain disorder: It seems patient buprenorphine patch 7.5 mcg weekly and Topamax, duloxetine and baclofen. Dyslipidemia: Hold fenofibrate. Diminished left foot pulse: Left MARLENE 1.0. Discharge planning: SNF I have discussed my assessment with Yamileth ATKINS and orders have been reviewed. Clinical Impression(s) from Imaging Studies Brain CT 01/10/20 18:34 IMPRESSION: No acute abnormalities. Specifically no evidence for acute intracranial bleed Posttraumatic deformity of the distal nasal bones which is new finding since prior study. However the bony fragments appear sclerotic suggesting chronic injury. Clinical correlation recommended Electronically Signed: Demetrius Bruno MD at 19:36 EDT , Service support , Cervical Spine CT 01/10/20 18:37 IMPRESSION: No acute fracture or subluxation. Mild spondylosis most pronounced at C5-6. Electronically Signed: Demetrius Bruno MD at 19:39 EDT , Service support , Ankle X-Ray 01/10/20 19:20 IMPRESSION: Acute bimalleolar fracture with associated dislocation of the medial malleolus. Electronically Signed: Demetrius Bruno MD at 20:06 EDT , Service support , Chest X-Ray 01/10/20 19:20 IMPRESSION: Mild discoid atelectasis in left lower lobe Electronically Signed: Demetrius Bruno MD at 20:05 EDT , Service support , Tibia/Fibula X-Ray 01/10/20 19:20 IMPRESSION: Distal tibial and fibular fractures Electronically Signed: Demetrius Bruno MD at 20:04 EDT , Service support , Ankle X-Ray 01/10/20 20:33 IMPRESSION: Spiral fracture of the distal fibular shaft with minor separation of fracture fragments. Persistent subluxation of the medial tibiotalar joint and transversely oriented fracture of the tibial plafond with separation of fracture fragments status post closed reduction and casting Electronically Signed: Demetrius Bruno MD at 20:52 EDT , Service support , Ankle X-Ray 01/11/20 03:10 IMPRESSION: Status post closed reduction and external fixation device placement Electronically Signed: Demetrius Bruno MD at 19:22 EDT , Service support , Ankle X-Ray 01/11/20 08:40 IMPRESSION: Status post fluoroscopic-guided closed reduction and external fixator placement Electronically Signed: Demetrius Bruno MD at 16:12 EDT , Service support , Foot X-Ray 01/11/20 15:13 IMPRESSION: Status post closed reduction and external fixation device placement of acute trimalleolar fracture Electronically Signed: Demetrius Bruno MD at 19:20 EDT , Service support , Lower Extremity CT 01/11/20 15:13 IMPRESSION: Trimalleolar fracture of the ankle with fracture fragments in near anatomic alignment and position with external fixator pins in situ Electronically Signed: Demetrius Bruno MD at 17:36 EDT , Service support , Tibia/Fibula X-Ray 01/11/20 15:13 IMPRESSION: Status post closed reduction and external fixation device placement Electronically Signed: Demetrius Bruno MD at 16:42 EDT , Service support , Chest X-Ray 01/13/20 07:20 IMPRESSION: 1. Curvilinear subsegmental atelectasis in the left upper lobe. 2. No other additional findings or changes since 01/10/2020. Inpatient E&M: 30455 Subs Hosp L2
[2020-01-13] MEDS: 0.9% Saline Lock 10 ML Syringe IV (14:10)
[2020-01-13] MEDS: Baclofen 10 MG Tablet PO (21:15)
[2020-01-13] MEDS: Pravastatin 20 MG Tablet PO (21:16)
[2020-01-13] MEDS: Montelukast 10 MG Tablet PO (21:16)
[2020-01-13] MEDS: Topiramate 50 MG Tablet PO (21:16)
[2020-01-14] VITALS (8 sets, daily range): BP systolic 140–166; BP diastolic 84–97; PULSE 77–85; RESP 16–20; TEMP 36.6–37; O2SAT 96–97
[2020-01-14] MEDS: oxyCODONE 5 MG Tablet PO ×4 (02:29→18:33)
[2020-01-14] MEDS: Pregabalin 50 MG Capsule 100 MG PO ×3 (05:02→21:42)
[2020-01-14] MEDS: DULoxetine Hcl 30 MG Capsule PO ×2 (08:23→21:33)
[2020-01-14] MEDS: Escitalopram Oxalate 20 MG Tablet PO (08:23)
[2020-01-14] MEDS: Pantoprazole Sodium 40 MG Tablet PO (08:23)
--- NOTE | 2020-01-14 10:23 | PN_ITS ---
<Yamileth Rodrigues - Last Filed: 01/14/20 10:30> Patient Problems: Active and Suspected Problems (Last Reviewed 01/10/20 @ 21:[address] Quang Mcfarlane MD) Bimalleolar fracture of right ankle (Acute) Bimalleolar fracture of right ankle (Acute) Trimalleolar fracture of ankle, closed (Acute) Dislocation of right ankle joint, initial encounter (Acute) Subjective: Patient seen and examined. Reports pain is well controlled. Reports she is frustrated she cannot walk on her right foot and is having difficulty with using the restroom and other ADLs. However, she did better with therapy today. Support given. - Physical Exam Vitals/I&O's: Vital Signs Temp Pulse Resp BP Pulse Ox 98.0 F 83 18 164/97 H 96 01/14/20 08:25 01/14/20 08:25 01/14/20 08:25 01/14/20 08:25 01/14/20 08:25 Oxygen Flow Rate (L/min) [2] 4 Oxygen Flow Rate (L/min) [1 ( 97 Initial Baseline)] Oxygen Flow Rate (L/min) 2 Oxygen Delivery Method [3] Nasal Cannula Oxygen Delivery Method [2] Nasal Cannula Oxygen Delivery Method [1 ( Nasal Cannula Initial Baseline)] Oxygen Delivery Method Room Air Weight: 192 lb 0.362 oz Body Mass Index (BMI) 30.9 Intake and Output for Last 24 Hours 01/12/20 01/13/20 01/14/20 23:59 23:59 23:59 Intake Total 3956.67 / 3956.67 1392.50 / 1492.50 256 / 256 Output Total 1200 / 1200 2000 / 4050 3050 / 3050 Balance 2756.67 / 2756.67 -607.50 / -2557.50 -2794 / -2794 General: Alert, Oriented x3, Cooperative HEENT: Atraumatic, PERRLA, EOMI, Normocephalic Neck: Supple, No JVD, Negative Carotid Bruits Lungs: Clear to auscultation, Normal air movement Cardiovascular: Regular rate, No murmurs Abdomen: Bowel Sounds Present, Soft, Non Tender, Non-Distended Extremities: No clubbing, No cyanosis, No edema, Capillary Refill Less than 3 Seconds Skin: No rashes, No breakdown, - - Right foot postop dressing intact Musculoskeletal: No Tenderness to Palpation of Joints or Extremities Neurological: Cranial nerves II-XII grossly intact, Neuro grossly intact Psych/Mental Status: Normal Affect, Appropriate Laboratory Results 01/11/20 07:10: CK Isoenzymes Cancelled, CK-MM (CK-3) Cancelled, CK-MB (CK-2) Cancelled, CK-BB (CK-1) Cancelled, CK Isoenzymes Interp Cancelled, Macro CK Cancelled, Macro CK Type I Cancelled, Macro CK Type II Cancelled 01/14/20 04:58: CK Isoenzymes Pending, CK-MM (CK-3) Pending, CK-MB (CK-2) Pending, CK-BB (CK-1) Pending Current Medications Acetaminophen (Tylenol) 650 mg PO Q6H PRN PRN PRN Reason: Pain Score 1-10/Temp > 100.7 F Last Admin: 01/13/20 20:30 Dose: 650 mg Documented by: Albuterol Sulfate (Ventolin Aerosols) 2.5 mg INHALATION Q2H PRN PRN PRN Reason: Shortness of Breath/Wheezing Baclofen (Lioresal) 10 mg PO TID PRN PRN Reason: MUSCLE SPASTICITY Last Admin: 01/13/20 21:15 Dose: 10 mg Documented by: Dextrose (D50w Syringe) 0 gm IV X1 PRN; Protocol PRN Reason: Hypoglycemia Duloxetine HCl (Cymbalta) 30 mg PO BID [facility] Last Admin: 01/14/20 08:23 Dose: 30 mg Documented by: Enoxaparin Sodium (Lovenox) 40 mg SC DAILY@0600 [facility] Last Admin: 01/14/20 05:04 Dose: Not Given Documented by: Escitalopram Oxalate (Lexapro) 20 mg PO DAILY [facility] Last Admin: 01/14/20 08:23 Dose: 20 mg Documented by: Glucagon () 1 mg IM .X1 PRN PRN Reason: Hypoglycemia Hydromorphone HCl (Dilaudid Inj) 1 mg IV Q2H PRN PRN PRN Reason: Pain Score 6-10/10 Last Admin: 01/13/20 00:16 Dose: 1 mg Documented by: Sodium Chloride () 250 mls @ 15 mls/hr IV .[id number] PRN PRN Reason: Saline Flush Sodium Chloride () 250 mls @ 15 mls/hr IV .[id number] PRN PRN Reason: Additional IVPB Infusion Clindamycin Phosphate 900 mg/ (Dextrose) 106 mls @ 150 mls/hr IV Q8 [facility] Last Infusion: 01/14/20 05:47 Dose: Infused Documented by: Sodium Chloride () 250 mls @ 15 mls/hr IV .[id number] PRN PRN Reason: Saline Flush Sodium Chloride () 250 mls @ 15 mls/hr IV .[id number] PRN PRN Reason: Additional IVPB Infusion Lisinopril (Zestril) 20 mg PO DAILY [facility] Montelukast Sodium (Singulair) 10 mg PO QHS [facility] Last Admin: 01/13/20 21:16 Dose: 10 mg Documented by: Ondansetron HCl (Zofran) 4 mg IV Q8H PRN PRN PRN Reason: NAUSEA/VOMITING Oxycodone HCl (Oxyir) 5 mg PO Q4H PRN PRN PRN Reason: Pain Score 4-10/10 Last Admin: 01/14/20 08:23 Dose: 5 mg Documented by: Pantoprazole Sodium (Protonix) 40 mg PO DAILY [facility] Last Admin: 01/14/20 08:23 Dose: 40 mg Documented by: Pravastatin Sodium (Pravachol) 20 mg PO DAILY@2200 [facility] Last Admin: 01/13/20 21:16 Dose: 20 mg Documented by: Pregabalin (Lyrica) 100 mg PO TID [facility] Last Admin: 01/14/20 05:02 Dose: 100 mg Documented by: Senna/Docusate Sodium (Senokot-S, Faby-Colace) 2 tablet PO BID PRN PRN PRN Reason: Constipation Last Admin: 01/13/20 05:09 Dose: 2 tablet Documented by: Sodium Chloride () 10 - 40 ml IV UD PRN PRN Reason: SALINE FLUSH Last Admin: 01/13/20 14:10 Dose: 20 ml Documented by: Topiramate (Topamax) 50 mg PO QHS [facility] Last Admin: 01/13/20 21:16 Dose: 50 mg Documented by: Medical Necessity - Tobacco Use Smoking Status: Current every day smoker Tobacco Use: Cigarettes Assessment/Plan All Active Problems (Last Reviewed 01/10/20 @ 21:[address] Quang Mcfarlane MD) Bimalleolar fracture of right ankle (Acute) Bimalleolar fracture of right ankle (Acute) Trimalleolar fracture of ankle, closed (Acute) Dislocation of right ankle joint, initial encounter (Acute) Drug overdose (Ruled-out) Morbid obesity (Resolved) Pericardial effusion (Resolved) 1. Acute traumatic right trimalleolar fracture status post closed reduction of right ankle trimalleolar fracture with external fixation 01/11/[address] Washington- management per podiatry. Nonweightbearing right lower extremity. Outpatient follow-up January 19. PRN pain regimen. PT/OT. SNF pending acceptance. 2. Acute kidney injury with acute rhabdomyolysis- resolved with IV fluids. 3. Nasal fracture, acute versus chronic per imaging-outpatient follow-up with maxillofacial surgeon. 4. History of chronic pain disorder-on buprenorphine patch, baclofen and Lyrica. 5. History of seizures-continue Topamax. 6. Chronic intermittent asthma-no exacerbation. As needed albuterol aerosol. Continue Singulair. 7. Hypertension-stable, lisinopril on hold. 8. Depression-continue duloxetine, Lexapro. Patient's family member reports patient has been using various substances and has had increased depression following recent of her mother. Patient will need psychiatric referral at discharge. 9. GERD-continue PPI. 10. Hyperlipidemia-continue statin, fenofibrate. DVT prophylaxis- Lovenox sc This patient was seen by LACEY Vega under the supervision of Dr. Mireles. <Daniel Mireles - Last Filed: 01/14/20 11:52> Objective: Seen and examined. Blood pressure is elevated 160/97. Periorbital edema, bruise is better. Patient can lift right lower leg. General: Alert, Oriented x3, Cooperative HEENT: PERRLA, EOMI, Normocephalic, Bruise over both eyes, much improved. Tenderness on the nasal bridge. No conjunctival injection or redness or conjunctival edema. Oral: No Gingival or Mucosal Lesions/ Ulcerations Neck: Supple, No JVD, Negative Carotid Bruits Lungs: Air entry diminished on bilateral lung bases. Expiratory coarse rhonchi present. Mild occasional wheezing Cardiovascular: Regular rate, Regular Rhythm, Normal S1, Normal S2, No murmurs Abdomen: Bowel Sounds Present, Soft, Non Tender, Non-Distended Extremities: Capillary Refill Less than 3 Seconds, Edema of right leg Skin: No rashes, No breakdown Musculoskeletal: Arthritic Changes,Tenderness of right ankle with Ishmael wrap bandage. close reduction with external fixation of the right ankle fracture Neurological: Cranial nerves II-XII grossly intact, Deep Tendon Reflexes 2+/4 and Symmetrical, Neuro grossly intact, Psych/Mental Status: Normal Affect, Appropriate - Physical Exam Vitals/I&O's: Vital Signs Temp Pulse Resp BP Pulse Ox 98.0 F 83 18 164/97 H 96 01/14/20 08:25 01/14/20 08:25 01/14/20 08:25 01/14/20 08:25 01/14/20 08:25 Oxygen Flow Rate (L/min) [2] 4 Oxygen Flow Rate (L/min) [1 ( 97 Initial Baseline)] Oxygen Flow Rate (L/min) 2 Oxygen Delivery Method [3] Nasal Cannula Oxygen Delivery Method [2] Nasal Cannula Oxygen Delivery Method [1 ( Nasal Cannula Initial Baseline)] Oxygen Delivery Method Room Air Weight: 192 lb 0.362 oz Body Mass Index (BMI) 30.9 Intake and Output for Last 24 Hours 01/12/20 01/13/20 01/14/20 23:59 23:59 23:59 Intake Total 3956.67 / 3956.67 1392.50 / 1492.50 256 / 256 Output Total 1200 / 1200 2000 / 4050 3050 / 3050 Balance 2756.67 / 2756.67 -607.50 / -2557.50 -2794 / -2794 Laboratory Results 01/11/20 07:10: CK Isoenzymes Cancelled, CK-MM (CK-3) Cancelled, CK-MB (CK-2) Cancelled, CK-BB (CK-1) Cancelled, CK Isoenzymes Interp Cancelled, Macro CK Cancelled, Macro CK Type I Cancelled, Macro CK Type II Cancelled 01/14/20 04:58: CK Isoenzymes Pending, CK-MM (CK-3) Pending, CK-MB (CK-2) Pending, CK-BB (CK-1) Pending Current Medications Acetaminophen (Tylenol) 650 mg PO Q6H PRN PRN PRN Reason: Pain Score 1-10/Temp > 100.7 F Last Admin: 01/13/20 20:30 Dose: 650 mg Documented by: Albuterol Sulfate (Ventolin Aerosols) 2.5 mg INHALATION Q2H PRN PRN PRN Reason: Shortness of Breath/Wheezing Baclofen (Lioresal) 10 mg PO TID PRN PRN Reason: MUSCLE SPASTICITY Last Admin: 01/13/20 21:15 Dose: 10 mg Documented by: Dextrose (D50w Syringe) 0 gm IV X1 PRN; Protocol PRN Reason: Hypoglycemia Duloxetine HCl (Cymbalta) 30 mg PO BID [facility] Last Admin: 01/14/20 08:23 Dose: 30 mg Documented by: Enoxaparin Sodium (Lovenox) 40 mg SC DAILY@0600 [facility] Last Admin: 01/14/20 05:04 Dose: Not Given Documented by: Escitalopram Oxalate (Lexapro) 20 mg PO DAILY [facility] Last Admin: 01/14/20 08:23 Dose: 20 mg Documented by: Glucagon () 1 mg IM .X1 PRN PRN Reason: Hypoglycemia Hydromorphone HCl (Dilaudid Inj) 1 mg IV Q2H PRN PRN PRN Reason: Pain Score 6-10/10 Last Admin: 01/13/20 00:16 Dose: 1 mg Documented by: Sodium Chloride () 250 mls @ 15 mls/hr IV .[id number] PRN PRN Reason: Saline Flush Sodium Chloride () 250 mls @ 15 mls/hr IV .[id number] PRN PRN Reason: Additional IVPB Infusion Clindamycin Phosphate 900 mg/ (Dextrose) 106 mls @ 150 mls/hr IV Q8 [facility] Last Infusion: 01/14/20 05:47 Dose: Infused Documented by: Sodium Chloride () 250 mls @ 15 mls/hr IV .[id number] PRN PRN Reason: Saline Flush Sodium Chloride () 250 mls @ 15 mls/hr IV .[id number] PRN PRN Reason: Additional IVPB Infusion Lisinopril (Zestril) 20 mg PO DAILY [facility] Last Admin: 01/14/20 10:35 Dose: 20 mg Documented by: Montelukast Sodium (Singulair) 10 mg PO QHS [facility] Last Admin: 01/13/20 21:16 Dose: 10 mg Documented by: Ondansetron HCl (Zofran) 4 mg IV Q8H PRN PRN PRN Reason: NAUSEA/VOMITING Oxycodone HCl (Oxyir) 5 mg PO Q4H PRN PRN PRN Reason: Pain Score 4-10/10 Last Admin: 01/14/20 08:23 Dose: 5 mg Documented by: Pantoprazole Sodium (Protonix) 40 mg PO DAILY [facility] Last Admin: 01/14/20 08:23 Dose: 40 mg Documented by: Pravastatin Sodium (Pravachol) 20 mg PO DAILY@2200 [facility] Last Admin: 01/13/20 21:16 Dose: 20 mg Documented by: Pregabalin (Lyrica) 100 mg PO TID [facility] Last Admin: 01/14/20 05:02 Dose: 100 mg Documented by: Senna/Docusate Sodium (Senokot-S, Faby-Colace) 2 tablet PO BID PRN PRN PRN Reason: Constipation Last Admin: 01/13/20 05:09 Dose: 2 tablet Documented by: Sodium Chloride () 10 - 40 ml IV UD PRN PRN Reason: SALINE FLUSH Last Admin: 01/13/20 14:10 Dose: 20 ml Documented by: Topiramate (Topamax) 50 mg PO QHS [facility] Last Admin: 01/13/20 21:16 Dose: 50 mg Documented by: Assessment/Plan This patient was seen in conjunction with FILLER SHREDDER MACHINE, Yamileth. I have independently interviewed and examined the patient and reviewed pertinent history, examination findings, laboratory and plan of management. I have reviewed the note and agree with the documented findings with the few additional points. In brief, patient is admitted for multiple fall day before admission resulting into acute right trimalleolar fracture with associated medial malleolus dislocation: There is also a spiral fracture of distal fibular shaft with minor separation of fracture segments. Auto Leasing Manager was consulted. Dr. Washington saw the patient and had closed reduction of right ankle with external fixator on 01/11/2020. H&H stable. Leukocytosis resolved. PT, OT are working on the patient rehab. ABRAM with mild rhabdomyolysis: CK 3063. BUN/creatinine 72/2.2, improved to 66/1.43 suggestive of acute kidney injury, prerenal etiology. BUN improving. Creatinine normal. 01/12: IV fluid discontinued. Mild coarse rhonchi and fine wheezing in the lungs. Total CK improved to 384. /: Patient lungs sounded better after discontinuation of IV fluid. Nasal bone fracture: Patient can follow-up with maxillofacial oral surgeon as an outpatient. CT head and C-spine no acute change. Repeat chest x-ray shows curvilinear atelectasis of left upper lobe. Other chronic comorbidities include seizures/epilepsy syndrome nonspecific, asthma, chronic pain disorder: It seems patient buprenorphine patch 7.5 mcg weekly and Topamax, duloxetine and baclofen. Dyslipidemia: Hold fenofibrate. Diminished left foot pulse: Left MARLENE 1.0. Discharge planning: SNF I have discussed my assessment with Yamileth ATKINS and orders have been reviewed Inpatient E&M: [id number] Subs Hosp L2
[2020-01-14] MEDS: Lisinopril 20 MG Tablet PO (10:35)
[2020-01-14] MEDS: Acetaminophen 500 MG Tablet 1000 MG PO ×2 (14:53→21:38)
[2020-01-14] MEDS: 0.9% Saline Lock 10 ML Syringe IV (15:02)
[2020-01-14] MEDS: Montelukast 10 MG Tablet PO (21:33)
[2020-01-14] MEDS: Pravastatin 20 MG Tablet PO (21:33)
[2020-01-14] MEDS: Topiramate 50 MG Tablet PO (21:33)
[2020-01-15] VITALS (12 sets, daily range): BP systolic 133–153; BP diastolic 76–88; PULSE 59–85; RESP 13–18; TEMP 36.5–37.1; O2SAT 96–98
--- NOTE | 2020-01-15 00:55 | NURSING ---
Verbal report received from Alvino Vega RN. This RN resuming care of patient at this time.
[2020-01-15] MEDS: oxyCODONE 5 MG Tablet PO ×5 (01:06→21:16)
[2020-01-15] MEDS: Pregabalin 50 MG Capsule 100 MG PO ×3 (05:37→21:15)
[2020-01-15] MEDS: Acetaminophen 500 MG Tablet 1000 MG PO ×3 (05:37→21:14)
[2020-01-15] MEDS: Lisinopril 20 MG Tablet PO (08:59)
[2020-01-15] MEDS: Escitalopram Oxalate 20 MG Tablet PO (08:59)
[2020-01-15] MEDS: DULoxetine Hcl 30 MG Capsule PO ×2 (08:59→21:15)
[2020-01-15] MEDS: Pantoprazole Sodium 40 MG Tablet PO (08:59)
--- NOTE | 2020-01-15 10:24 | PCM.PROGNOTE ---
<Yamileth Rodrigues - Last Filed: 01/15/20 10:36> Patient Problems: Active and Suspected Problems (Last Reviewed 01/10/20 @ 21:[address] Quang Mcfarlane MD) Bimalleolar fracture of right ankle (Acute) Bimalleolar fracture of right ankle (Acute) Trimalleolar fracture of ankle, closed (Acute) Dislocation of right ankle joint, initial encounter (Acute) Subjective: Patient seen and examined. Patient reports pain is well controlled. States she did well with therapy today. Awaiting acceptance to [facility]. - Physical Exam Vitals/I&O's: Vital Signs Temp Pulse Resp BP Pulse Ox 97.7 F L 85 18 140/88 H 98 01/15/20 08:51 01/15/20 08:51 01/15/20 08:51 01/15/20 08:51 01/15/20 08:51 Oxygen Flow Rate (L/min) [2] 4 Oxygen Flow Rate (L/min) [1 ( 97 Initial Baseline)] Oxygen Flow Rate (L/min) 2 Oxygen Delivery Method [3] Nasal Cannula Oxygen Delivery Method [2] Nasal Cannula Oxygen Delivery Method [1 ( Nasal Cannula Initial Baseline)] Oxygen Delivery Method Room Air Weight: 192 lb 0.362 oz Body Mass Index (BMI) 30.9 Intake and Output for Last 24 Hours 01/13/20 01/14/20 01/15/20 23:59 23:59 23:59 Intake Total 1392.50 / 1492.50 1528 / 1648 241 / 241 Output Total 1999 / 4050 4125 / 4275 400 / 400 Balance -607.50 / -2557.50 -2597 / -2627 -159 / -159 General: Alert, Oriented x3, Cooperative HEENT: Atraumatic, PERRLA, EOMI, Normocephalic Neck: Supple, No JVD, Negative Carotid Bruits Lungs: Clear to auscultation, Normal air movement Cardiovascular: Regular rate, No murmurs Abdomen: Bowel Sounds Present, Soft, Non Tender, Non-Distended Extremities: No clubbing, No cyanosis, No edema, Capillary Refill Less than 3 Seconds Skin: No rashes, No breakdown, - - Right foot postop dressing intact Musculoskeletal: No Tenderness to Palpation of Joints or Extremities Neurological: Cranial nerves II-XII grossly intact, Neuro grossly intact Psych/Mental Status: Normal Affect, Appropriate Laboratory Results 01/14/20 04:58: CK Isoenzymes Cancelled, CK-MM (CK-3) Cancelled, CK-MB (CK-2) Cancelled, CK-BB (CK-1) Cancelled, CK Isoenzymes Interp Cancelled, Macro CK Cancelled, Macro CK Type I Cancelled, Macro CK Type II Cancelled Current Medications Acetaminophen (Tylenol) 1,000 mg PO Q8 REPLACED BY [facility] Last Admin: 01/15/20 05:37 Dose: 1,000 mg Documented by: Albuterol Sulfate (Ventolin Aerosols) 2.5 mg INHALATION Q2H PRN PRN PRN Reason: Shortness of Breath/Wheezing Baclofen (Lioresal) 10 mg PO TID PRN PRN Reason: MUSCLE SPASTICITY Last Admin: 01/13/20 21:15 Dose: 10 mg Documented by: Dextrose (D50w Syringe) 0 gm IV X1 PRN; Protocol PRN Reason: Hypoglycemia Duloxetine HCl (Cymbalta) 30 mg PO BID REPLACED BY [facility] Last Admin: 01/15/20 08:59 Dose: 30 mg Documented by: Enoxaparin Sodium (Lovenox) 40 mg SC DAILY@0600 REPLACED BY [facility] Last Admin: 01/15/20 05:37 Dose: Not Given Documented by: Escitalopram Oxalate (Lexapro) 20 mg PO DAILY REPLACED BY [facility] Last Admin: 01/15/20 08:59 Dose: 20 mg Documented by: Glucagon () 1 mg IM .X1 PRN PRN Reason: Hypoglycemia Sodium Chloride () 250 mls @ 15 mls/hr IV .[id number] PRN PRN Reason: Saline Flush Sodium Chloride () 250 mls @ 15 mls/hr IV .[id number] PRN PRN Reason: Additional IVPB Infusion Clindamycin Phosphate 900 mg/ (Dextrose) 106 mls @ 150 mls/hr IV Q8 REPLACED BY [facility] Last Infusion: 01/15/20 06:21 Dose: Infused Documented by: Sodium Chloride () 250 mls @ 15 mls/hr IV .[id number] PRN PRN Reason: Saline Flush Sodium Chloride () 250 mls @ 15 mls/hr IV .[id number] PRN PRN Reason: Additional IVPB Infusion Lisinopril (Zestril) 20 mg PO DAILY REPLACED BY [facility] Last Admin: 01/15/20 08:59 Dose: 20 mg Documented by: Montelukast Sodium (Singulair) 10 mg PO QHS REPLACED BY [facility] Last Admin: 01/14/20 21:33 Dose: 10 mg Documented by: Ondansetron HCl (Zofran) 4 mg IV Q8H PRN PRN PRN Reason: NAUSEA/VOMITING Oxycodone HCl (Oxyir) 5 - 10 mg PO Q4H PRN PRN PRN Reason: Pain Score 4-10/10 Last Admin: 01/15/20 08:59 Dose: 10 mg Documented by: Pantoprazole Sodium (Protonix) 40 mg PO DAILY REPLACED BY [facility] Last Admin: 01/15/20 08:59 Dose: 40 mg Documented by: Pravastatin Sodium (Pravachol) 20 mg PO DAILY@2200 REPLACED BY [facility] Last Admin: 01/14/20 21:33 Dose: 20 mg Documented by: Pregabalin (Lyrica) 100 mg PO TID REPLACED BY [facility] Last Admin: 01/15/20 05:37 Dose: 100 mg Documented by: Senna/Docusate Sodium (Senokot-S, Faby-Colace) 2 tablet PO BID PRN PRN PRN Reason: Constipation Last Admin: 01/13/20 05:09 Dose: 2 tablet Documented by: Sodium Chloride () 10 - 40 ml IV UD PRN PRN Reason: SALINE FLUSH Last Admin: 01/14/20 15:02 Dose: 10 ml Documented by: Topiramate (Topamax) 50 mg PO QHS REPLACED BY [facility] Last Admin: 01/14/20 21:33 Dose: 50 mg Documented by: Medical Necessity - Tobacco Use Smoking Status: Current every day smoker Tobacco Use: Cigarettes Assessment/Plan All Active Problems (Last Reviewed 01/10/20 @ 21:[address] Quang Mcfarlane MD) Bimalleolar fracture of right ankle (Acute) Bimalleolar fracture of right ankle (Acute) Trimalleolar fracture of ankle, closed (Acute) Dislocation of right ankle joint, initial encounter (Acute) Drug overdose (Ruled-out) Morbid obesity (Resolved) Pericardial effusion (Resolved) 1. Acute traumatic right trimalleolar fracture status post closed reduction of right ankle trimalleolar fracture with external fixation 01/11/[address] Washington-management per podiatry. Nonweightbearing right lower extremity. Outpatient follow-up January 19. PRN pain regimen. PT/OT. SNF pending acceptance. 2. Acute kidney injury with acute rhabdomyolysis- resolved with IV fluids. 3. Nasal fracture, acute versus chronic per imaging-outpatient follow-up with maxillofacial surgeon. 4. History of chronic pain disorder-on buprenorphine patch, baclofen and Lyrica. 5. History of seizures-continue Topamax. 6. Chronic intermittent asthma-no exacerbation. As needed albuterol aerosol. Continue Singulair. 7. Hypertension-stable, lisinopril on hold. 8. Depression-continue duloxetine, Lexapro. Patient's family member reports patient has been using various substances and has had increased depression following recent of her mother. Patient will need psychiatric referral at discharge. 9. GERD-continue PPI. 10. Hyperlipidemia-continue statin, fenofibrate. DVT prophylaxis- Lovenox sc This patient was seen by LACEY Vega under the supervision of Dr. Mireles. <Daniel Mireles - Last Filed: 01/15/20 13:04> Subjective: Patient is gradually better. Blood pressure and heart rate are controlled. Objective: On physical exam General: Alert, Oriented x3, Cooperative HEENT: PERRLA, EOMI, Normocephalic, Bruise over both eyes, much improved. Tenderness on the nasal bridge. No conjunctival injection or redness or conjunctival edema. Oral: No Gingival or Mucosal Lesions/ Ulcerations Neck: Supple, No JVD, Negative Carotid Bruits Lungs: Air entry diminished on bilateral lung bases. Expiratory coarse rhonchi present. No tachypnea or hypoxia. Cardiovascular: Regular rate, Regular Rhythm, Normal S1, Normal S2, No murmurs Abdomen: Bowel Sounds Present, Soft, Non Tender, Non-Distended Extremities: Capillary Refill Less than 3 Seconds, Edema of right leg Skin: No rashes, No breakdown Musculoskeletal: Arthritic Changes,Tenderness of right ankle with Ishmael wrap bandage. close reduction with external fixation of the right ankle fracture Neurological: Cranial nerves II-XII grossly intact, Deep Tendon Reflexes 2+/4 and Symmetrical, Neuro grossly intact, Psych/Mental Status: Normal Affect, Appropriate - Physical Exam Vitals/I&O's: Vital Signs Temp Pulse Resp BP Pulse Ox 97.7 F L 82 18 140/88 H 98 01/15/20 08:51 01/15/20 11:08 01/15/20 08:51 01/15/20 08:51 01/15/20 08:51 Oxygen Flow Rate (L/min) [2] 4 Oxygen Flow Rate (L/min) [1 ( 97 Initial Baseline)] Oxygen Flow Rate (L/min) 2 Oxygen Delivery Method [3] Nasal Cannula Oxygen Delivery Method [2] Nasal Cannula Oxygen Delivery Method [1 ( Nasal Cannula Initial Baseline)] Oxygen Delivery Method Room Air Weight: 192 lb 0.362 oz Body Mass Index (BMI) 30.9 Intake and Output for Last 24 Hours 01/13/20 01/14/20 01/15/20 23:59 23:59 23:59 Intake Total 1392.50 / 1492.50 1528 / 1648 241 / 241 Output Total 1999 / 4050 4125 / 4275 400 / 400 Balance -607.50 / -2557.50 -2597 / -2627 -159 / -159 Laboratory Results 01/14/20 04:58: CK Isoenzymes Cancelled, CK-MM (CK-3) Cancelled, CK-MB (CK-2) Cancelled, CK-BB (CK-1) Cancelled, CK Isoenzymes Interp Cancelled, Macro CK Cancelled, Macro CK Type I Cancelled, Macro CK Type II Cancelled Current Medications Acetaminophen (Tylenol) 1,000 mg PO Q8 REPLACED BY [facility] Last Admin: 01/15/20 05:37 Dose: 1,000 mg Documented by: Albuterol Sulfate (Ventolin Aerosols) 2.5 mg INHALATION Q2H PRN PRN PRN Reason: Shortness of Breath/Wheezing Baclofen (Lioresal) 10 mg PO TID PRN PRN Reason: MUSCLE SPASTICITY Last Admin: 01/13/20 21:15 Dose: 10 mg Documented by: Dextrose (D50w Syringe) 0 gm IV X1 PRN; Protocol PRN Reason: Hypoglycemia Duloxetine HCl (Cymbalta) 30 mg PO BID REPLACED BY [facility] Last Admin: 01/15/20 08:59 Dose: 30 mg Documented by: Enoxaparin Sodium (Lovenox) 40 mg SC DAILY@0600 REPLACED BY [facility] Last Admin: 01/15/20 05:37 Dose: Not Given Documented by: Escitalopram Oxalate (Lexapro) 20 mg PO DAILY REPLACED BY [facility] Last Admin: 01/15/20 08:59 Dose: 20 mg Documented by: Glucagon () 1 mg IM .X1 PRN PRN Reason: Hypoglycemia Sodium Chloride () 250 mls @ 15 mls/hr IV .[id number] PRN PRN Reason: Saline Flush Sodium Chloride () 250 mls @ 15 mls/hr IV .[id number] PRN PRN Reason: Additional IVPB Infusion Clindamycin Phosphate 900 mg/ (Dextrose) 106 mls @ 150 mls/hr IV Q8 REPLACED BY [facility] Last Infusion: 01/15/20 06:21 Dose: Infused Documented by: Sodium Chloride () 250 mls @ 15 mls/hr IV .[id number] PRN PRN Reason: Saline Flush Sodium Chloride () 250 mls @ 15 mls/hr IV .[id number] PRN PRN Reason: Additional IVPB Infusion Lisinopril (Zestril) 20 mg PO DAILY REPLACED BY [facility] Last Admin: 01/15/20 08:59 Dose: 20 mg Documented by: Montelukast Sodium (Singulair) 10 mg PO QHS REPLACED BY [facility] Last Admin: 01/14/20 21:33 Dose: 10 mg Documented by: Ondansetron HCl (Zofran) 4 mg IV Q8H PRN PRN PRN Reason: NAUSEA/VOMITING Oxycodone HCl (Oxyir) 5 - 10 mg PO Q4H PRN PRN PRN Reason: Pain Score 4-10/10 Last Admin: 01/15/20 08:59 Dose: 10 mg Documented by: Pantoprazole Sodium (Protonix) 40 mg PO DAILY REPLACED BY [facility] Last Admin: 01/15/20 08:59 Dose: 40 mg Documented by: Pravastatin Sodium (Pravachol) 20 mg PO DAILY@2200 REPLACED BY [facility] Last Admin: 01/14/20 21:33 Dose: 20 mg Documented by: Pregabalin (Lyrica) 100 mg PO TID REPLACED BY [facility] Last Admin: 01/15/20 05:37 Dose: 100 mg Documented by: Senna/Docusate Sodium (Senokot-S, Faby-Colace) 2 tablet PO BID PRN PRN PRN Reason: Constipation Last Admin: 01/13/20 05:09 Dose: 2 tablet Documented by: Sodium Chloride () 10 - 40 ml IV UD PRN PRN Reason: SALINE FLUSH Last Admin: 01/14/20 15:02 Dose: 10 ml Documented by: Topiramate (Topamax) 50 mg PO QHS [facility] Last Admin: 01/14/20 21:33 Dose: 50 mg Documented by: Assessment/Plan This patient was seen in conjunction with Yamileth ATKINS. I have independently interviewed and examined the patient and reviewed pertinent history, examination findings, laboratory and plan of management. I have reviewed the note and agree with the documented findings with the few additional points. In brief, patient is admitted for multiple fall day before admission resulting into acute right trimalleolar fracture with associated medial malleolus dislocation: There is also a spiral fracture of distal fibular shaft with minor separation of fracture segments. [employer] Director was consulted. Dr. Washington saw the patient and had closed reduction of right ankle with external fixator on 01/11/2020. H&H stable. Leukocytosis resolved. PT, OT are working on the patient rehab. ABRAM with mild rhabdomyolysis: CK 3063. BUN/creatinine 72/2.2, improved to 66/1.43 suggestive of acute kidney injury, prerenal etiology. BUN improving. Creatinine normal. 01/12: IV fluid discontinued. Mild coarse rhonchi and fine wheezing in the lungs. Total CK improved to 384. 01/13: Patient lungs sounded better after discontinuation of IV fluid. 01/14: Hemodynamically stable. Pending for SNF placement, pre-CERT awaited Nasal bone fracture: Patient can follow-up with maxillofacial oral surgeon as an outpatient. CT head and C-spine no acute change. Repeat chest x-ray shows curvilinear atelectasis of left upper lobe. Other chronic comorbidities include seizures/epilepsy syndrome nonspecific, asthma, chronic pain disorder: It seems patient buprenorphine patch 7.5 mcg weekly and Topamax, duloxetine and baclofen. Dyslipidemia: Hold fenofibrate. Diminished left foot pulse: Left MARLENE 1.0. Discharge planning: SNF I have discussed my assessment with Yamileth ATKINS and orders have been reviewed Inpatient E&M: [id number] Subs Hosp L2
[2020-01-15] MEDS: 0.9% Saline Lock 10 ML Syringe IV (13:56)
[2020-01-15] MEDS: Topiramate 50 MG Tablet PO (21:14)
[2020-01-15] MEDS: Pravastatin 20 MG Tablet PO (21:16)
[2020-01-15] MEDS: Montelukast 10 MG Tablet PO (21:16)
[2020-01-15] MEDS: DiphenhydrAMINE 25 MG Capsule PO (22:37)
[2020-01-15] MEDS: Baclofen 10 MG Tablet PO (22:38)
[2020-01-16] VITALS (11 sets, daily range): BP systolic 108–133; BP diastolic 63–92; PULSE 64–79; RESP 16–18; TEMP 36.6–37; O2SAT 96–98
[2020-01-16] MEDS: oxyCODONE 5 MG Tablet PO ×5 (02:09→20:57)
[2020-01-16] MEDS: Enoxaparin 40 MG/0.4 ML Syringe SC (05:23)
[2020-01-16] MEDS: Acetaminophen 500 MG Tablet 1000 MG PO ×3 (05:28→21:00)
[2020-01-16] MEDS: Pregabalin 50 MG Capsule 100 MG PO ×2 (05:28→14:01)
[2020-01-16] MEDS: Escitalopram Oxalate 20 MG Tablet PO (08:48)
[2020-01-16] MEDS: Pantoprazole Sodium 40 MG Tablet PO (08:48)
[2020-01-16] MEDS: DULoxetine Hcl 30 MG Capsule PO ×2 (08:48→21:00)
[2020-01-16] MEDS: Lisinopril 20 MG Tablet PO (08:48)
--- NOTE | 2020-01-16 14:11 | PCM.EXTCARCO ---
- Diet 01/11/20 15:13 Diet: Regular Diet Is pt able to select menu?: Yes - Routine Orders/Code Status Enema Type: Fleetz Enema Frequency: Daily PRN Suppository Type: Dulcolax 10mg Suppository Frequency: Daily PRN O2 Liters per Minute: 2 O2 Frequency: PRN Keep PO Greater than or Equal to (%): 90 Routine Lab Work: CBC, BMP, - - Q Week Code Status: Full Code - Wound(s) RLE Wound Type: Surgical Incision 2nd toe of left foot Wound Type: Abrasion Bilateral face Wound Type: Hematoma Bilateral knees Wound Type: Abrasion Bridge of nose Wound Type: Abrasion rt knee Wound Type: Abrasion left ankle Wound Type: Abrasion L knee Wound Type: Abrasion - Suggestions for Active Care Change Position every (hours): 2 Times a day to sit in chair: 3 - Therapies Weight Bearing: Non weight bearing - RLE Physical Therapy: Eval and Treat Occupational Therapy: Eval and Treat - Problem/Diagnosis (1) Trimalleolar fracture of ankle, closed Status: Acute Current Visit: Yes (2) Hyperlipidemia Status: Chronic Current Visit: No (3) Seizure disorder Status: Chronic Current Visit: No (4) Hypertension Status: Chronic Current Visit: No - Allergies/Procedures Done in Hospital Allergies/Adverse Reactions: Allergies Penicillins Allergy (Severe, Verified 01/10/20 18:20) vomiting aspirin Adverse Reaction (Verified 01/10/20 18:20) Upset Stomach HX OF ULCERS Procedures: - - closed reduction of right ankle trimalleolar fracture with external fixation - Type of Care/Length of Stay Estimated LOS: Convalescent Care Less Than 30 days Type of Care Needed: Skilled Rehab Potential: Fair Prognosis: Fair - Additional Orders/Day of Discharge H&P will serve as current which was dated: 01/10/20 Day of Discharge: 01/16/20 - Follow Up Care Primary Care Physician: Marlen Lucia MD [Primary Care Provider] - Please follow up with your Primary Care Physician in: 1 Week Please Follow Up With: David Washington DPM When: On 01/20/2020 in [place] Office. Call [phone] to schedule appt
--- NOTE | 2020-01-16 14:15 | PN_ITS ---
<Yamileth Rodrigues - Last Filed: 01/16/20 14:23> Patient Problems: Active and Suspected Problems (Last Reviewed 01/10/20 @ 21:[address] Quang Mcfarlane MD) Bimalleolar fracture of right ankle (Acute) Bimalleolar fracture of right ankle (Acute) Trimalleolar fracture of ankle, closed (Acute) Dislocation of right ankle joint, initial encounter (Acute) Subjective: Patient seen and examined. Resting comfortably in bed. Awaiting acceptance to SNF. - Physical Exam Vitals/I&O's: Vital Signs Temp Pulse Resp BP Pulse Ox 97.8 F 79 18 125/64 H 98 01/16/20 08:46 01/16/20 11:01 01/16/20 08:46 01/16/20 08:46 01/16/20 08:46 Oxygen Flow Rate (L/min) [2] 4 Oxygen Flow Rate (L/min) [1 ( 97 Initial Baseline)] Oxygen Flow Rate (L/min) 2 Oxygen Delivery Method [3] Nasal Cannula Oxygen Delivery Method [2] Nasal Cannula Oxygen Delivery Method [1 ( Nasal Cannula Initial Baseline)] Oxygen Delivery Method Room Air Weight: 192 lb 0.362 oz Body Mass Index (BMI) 30.9 Intake and Output for Last 24 Hours 01/14/20 01/15/20 01/16/20 23:59 23:59 23:59 Intake Total 1528 / 1648 1175 / 1375 746 / 746 Output Total 4125 / 4275 800 / 800 675 / 675 Balance -2597 / -2627 375 / 575 71 / 71 General: Alert, Oriented x3, Cooperative HEENT: Atraumatic, PERRLA, EOMI, Normocephalic Neck: Supple, No JVD, Negative Carotid Bruits Lungs: Clear to auscultation, Normal air movement Cardiovascular: Regular rate, No murmurs Abdomen: Bowel Sounds Present, Soft, Non Tender, Non-Distended Extremities: No clubbing, No cyanosis, No edema, Capillary Refill Less than 3 Seconds Skin: - - Right foot postop dressing intact Musculoskeletal: No Tenderness to Palpation of Joints or Extremities Neurological: Cranial nerves II-XII grossly intact, Neuro grossly intact Psych/Mental Status: Normal Affect, Appropriate Current Medications Acetaminophen (Tylenol) 1,000 mg PO Q8 [facility] Last Admin: 01/16/20 14:01 Dose: 1,000 mg Documented by: Albuterol Sulfate (Ventolin Aerosols) 2.5 mg INHALATION Q2H PRN PRN PRN Reason: Shortness of Breath/Wheezing Baclofen (Lioresal) 10 mg PO TID PRN PRN Reason: MUSCLE SPASTICITY Last Admin: 01/15/20 22:38 Dose: 10 mg Documented by: Dextrose (D50w Syringe) 0 gm IV X1 PRN; Protocol PRN Reason: Hypoglycemia Diphenhydramine HCl (Benadryl) 25 mg PO Q6H PRN PRN Last Admin: 01/15/20 22:37 Dose: 25 mg Documented by: Duloxetine HCl (Cymbalta) 30 mg PO BID [facility] Last Admin: 01/16/20 08:48 Dose: 30 mg Documented by: Enoxaparin Sodium (Lovenox) 40 mg SC DAILY@0600 [facility] Last Admin: 01/16/20 05:23 Dose: 40 mg Documented by: Escitalopram Oxalate (Lexapro) 20 mg PO DAILY [facility] Last Admin: 01/16/20 08:48 Dose: 20 mg Documented by: Glucagon () 1 mg IM .X1 PRN PRN Reason: Hypoglycemia Sodium Chloride () 250 mls @ 15 mls/hr IV .[id number] PRN PRN Reason: Saline Flush Sodium Chloride () 250 mls @ 15 mls/hr IV .[id number] PRN PRN Reason: Additional IVPB Infusion Clindamycin Phosphate 900 mg/ (Dextrose) 106 mls @ 150 mls/hr IV Q8 [facility] Last Admin: 01/16/20 14:01 Dose: 150 mls/hr Documented by: Sodium Chloride () 250 mls @ 15 mls/hr IV .[id number] PRN PRN Reason: Saline Flush Sodium Chloride () 250 mls @ 15 mls/hr IV .[id number] PRN PRN Reason: Additional IVPB Infusion Lisinopril (Zestril) 20 mg PO DAILY [facility] Last Admin: 01/16/20 08:48 Dose: 20 mg Documented by: Montelukast Sodium (Singulair) 10 mg PO QHS [facility] Last Admin: 01/15/20 21:16 Dose: 10 mg Documented by: Ondansetron HCl (Zofran) 4 mg IV Q8H PRN PRN PRN Reason: NAUSEA/VOMITING Oxycodone HCl (Oxyir) 5 - 10 mg PO Q4H PRN PRN PRN Reason: Pain Score 4-10/10 Last Admin: 01/16/20 12:50 Dose: 10 mg Documented by: Pantoprazole Sodium (Protonix) 40 mg PO DAILY [facility] Last Admin: 01/16/20 08:48 Dose: 40 mg Documented by: Pravastatin Sodium (Pravachol) 20 mg PO DAILY@2200 [facility] Last Admin: 01/15/20 21:16 Dose: 20 mg Documented by: Pregabalin (Lyrica) 100 mg PO TID [facility] Last Admin: 01/16/20 14:01 Dose: 100 mg Documented by: Senna/Docusate Sodium (Senokot-S, Faby-Colace) 2 tablet PO BID PRN PRN PRN Reason: Constipation Last Admin: 01/13/20 05:09 Dose: 2 tablet Documented by: Sodium Chloride () 10 - 40 ml IV UD PRN PRN Reason: SALINE FLUSH Last Admin: 01/15/20 13:56 Dose: 10 ml Documented by: Topiramate (Topamax) 50 mg PO QHS [facility] Last Admin: 01/15/20 21:14 Dose: 50 mg Documented by: Medical Necessity - Tobacco Use Smoking Status: Current every day smoker Tobacco Use: Cigarettes Assessment/Plan All Active Problems (Last Reviewed 01/10/20 @ 21:[address] Quang Mcfarlane MD) Bimalleolar fracture of right ankle (Acute) Bimalleolar fracture of right ankle (Acute) Trimalleolar fracture of ankle, closed (Acute) Dislocation of right ankle joint, initial encounter (Acute) Drug overdose (Ruled-out) Morbid obesity (Resolved) Pericardial effusion (Resolved) 1. Acute traumatic right trimalleolar fracture status post closed reduction of right ankle trimalleolar fracture with external fixation 01/11/[address] Washington- management per podiatry. Nonweightbearing right lower extremity. Outpatient follow-up January 19. PRN pain regimen. PT/OT. SNF pending acceptance. 2. Acute kidney injury with acute rhabdomyolysis- resolved with IV fluids. 3. Nasal fracture, acute versus chronic per imaging-outpatient follow-up with maxillofacial surgeon. 4. History of chronic pain disorder-on buprenorphine patch, baclofen and Lyrica. 5. History of seizures-continue Topamax. 6. Chronic intermittent asthma-no exacerbation. As needed albuterol aerosol. Continue Singulair. 7. Hypertension-stable, lisinopril on hold. 8. Depression-continue duloxetine, Lexapro. Patient's family member reports patient has been using various substances and has had increased depression following recent of her mother. Patient will need psychiatric referral at discharge. 9. GERD-continue PPI. 10. Hyperlipidemia-continue statin, fenofibrate. DVT prophylaxis- Lovenox sc Discharge planning: SNF pending acceptance. This patient was seen by LACEY Vega under the supervision of Dr. Grimm. <Susy Grimm - Last Filed: 01/16/20 15:41> Subjective: The following is a reflection of my independent history and exam Pt states that she feeling okay. Pain is controlled. Waiting for precert. - Physical Exam Vitals/I&O's: Vital Signs Temp Pulse Resp BP Pulse Ox 98.2 F 73 18 125/63 H 96 01/16/20 14:46 01/16/20 14:55 01/16/20 14:46 01/16/20 14:46 01/16/20 14:46 Oxygen Flow Rate (L/min) [2] 4 Oxygen Flow Rate (L/min) [1 ( 97 Initial Baseline)] Oxygen Flow Rate (L/min) 2 Oxygen Delivery Method [3] Nasal Cannula Oxygen Delivery Method [2] Nasal Cannula Oxygen Delivery Method [1 ( Nasal Cannula Initial Baseline)] Oxygen Delivery Method Room Air Weight: 87.1 kg Body Mass Index (BMI) 30.9 Intake and Output for Last 24 Hours 01/14/20 01/15/20 01/16/20 23:59 23:59 23:59 Intake Total 1528 / 1648 1175 / 1375 852 / 852 Output Total 4125 / 4275 800 / 800 675 / 675 Balance -2597 / -2627 375 / 575 177 / 177 General: Alert, Oriented x3, Cooperative, No apparent distress, Well developed, Well nourished HEENT: PERRLA, EOMI, Normocephalic, EAC Clear, - - Ecchymosis around both eyes with various stages of healing based on color Oral: Moist Mucosa, No Gingival or Mucosal Lesions/ Ulcerations, - - edentulous uppers Neck: Supple, No Nodes, Trachea Midline, Thyroid Normal Size and Texture Lungs: Clear to auscultation, Normal air movement, No rhonchi, No wheeze, No rales Cardiovascular: Regular rate, Regular Rhythm, Normal S1, Normal S2, No murmurs, No Ectopic Activity, No rub noted, No Gallop Abdomen: Bowel Sounds Present, Soft, Non Tender, Non-Distended Extremities: No clubbing, No cyanosis, No edema, Capillary Refill Less than 3 Seconds, - - R LE in Ex fix device Musculoskeletal: No Tenderness to Palpation of Joints or Extremities, No Muscle Wasting, Arthritic Changes Psych/Mental Status: Normal Affect, Appropriate, Alert and oriented to time, place, person, mood and affect Current Medications Acetaminophen (Tylenol) 1,000 mg PO Q8 [facility] Last Admin: 01/16/20 14:01 Dose: 1,000 mg Documented by: Albuterol Sulfate (Ventolin Aerosols) 2.5 mg INHALATION Q2H PRN PRN PRN Reason: Shortness of Breath/Wheezing Baclofen (Lioresal) 10 mg PO TID PRN PRN Reason: MUSCLE SPASTICITY Last Admin: 01/15/20 22:38 Dose: 10 mg Documented by: Dextrose (D50w Syringe) 0 gm IV X1 PRN; Protocol PRN Reason: Hypoglycemia Diphenhydramine HCl (Benadryl) 25 mg PO Q6H PRN PRN Last Admin: 01/15/20 22:37 Dose: 25 mg Documented by: Duloxetine HCl (Cymbalta) 30 mg PO BID [facility] Last Admin: 01/16/20 08:48 Dose: 30 mg Documented by: Enoxaparin Sodium (Lovenox) 40 mg SC DAILY@0600 [facility] Last Admin: 01/16/20 05:23 Dose: 40 mg Documented by: Escitalopram Oxalate (Lexapro) 20 mg PO DAILY [facility] Last Admin: 01/16/20 08:48 Dose: 20 mg Documented by: Glucagon () 1 mg IM .X1 PRN PRN Reason: Hypoglycemia Sodium Chloride () 250 mls @ 15 mls/hr IV .[id number] PRN PRN Reason: Saline Flush Sodium Chloride () 250 mls @ 15 mls/hr IV .[id number] PRN PRN Reason: Additional IVPB Infusion Clindamycin Phosphate 900 mg/ (Dextrose) 106 mls @ 150 mls/hr IV Q8 [facility] Last Infusion: 01/16/20 15:15 Dose: Infused Documented by: Sodium Chloride () 250 mls @ 15 mls/hr IV .[id number] PRN PRN Reason: Saline Flush Sodium Chloride () 250 mls @ 15 mls/hr IV .[id number] PRN PRN Reason: Additional IVPB Infusion Lisinopril (Zestril) 20 mg PO DAILY [facility] Last Admin: 01/16/20 08:48 Dose: 20 mg Documented by: Montelukast Sodium (Singulair) 10 mg PO QHS [facility] Last Admin: 01/15/20 21:16 Dose: 10 mg Documented by: Ondansetron HCl (Zofran) 4 mg IV Q8H PRN PRN PRN Reason: NAUSEA/VOMITING Oxycodone HCl (Oxyir) 5 - 10 mg PO Q4H PRN PRN PRN Reason: Pain Score 4-10/10 Last Admin: 01/16/20 12:50 Dose: 10 mg Documented by: Pantoprazole Sodium (Protonix) 40 mg PO DAILY [facility] Last Admin: 01/16/20 08:48 Dose: 40 mg Documented by: Pravastatin Sodium (Pravachol) 20 mg PO DAILY@2200 [facility] Last Admin: 01/15/20 21:16 Dose: 20 mg Documented by: Pregabalin (Lyrica) 100 mg PO TID [facility] Last Admin: 01/16/20 14:01 Dose: 100 mg Documented by: Senna/Docusate Sodium (Senokot-S, Faby-Colace) 2 tablet PO BID PRN PRN PRN Reason: Constipation Last Admin: 01/13/20 05:09 Dose: 2 tablet Documented by: Sodium Chloride () 10 - 40 ml IV UD PRN PRN Reason: SALINE FLUSH Last Admin: 01/15/20 13:56 Dose: 10 ml Documented by: Topiramate (Topamax) 50 mg PO QHS [facility] Last Admin: 01/15/20 21:14 Dose: 50 mg Documented by: Assessment/Plan ASSESSMENT R Trimalleolar Fracture s/p closed reduction of right ankle trimalleolar fracture with external fixation 01/11/2020 -Dr. Washington ABRAM-resolved Rhabdomyolysis-resolved Nasal fracture Anemia Chronic Pain H/O Seizures HTN HPL GERD Depression Neuropathy Debility H/O Vitamin D Deficiency H/O Asthma PLAN -Pt doing well -continue therapy -will check CBC in BMP in am -continue therapy -await precert Inpatient E&M: [id number] Subs Hosp L2
[2020-01-16] MEDS: DiphenhydrAMINE 25 MG Capsule PO (20:30)
[2020-01-16] MEDS: Montelukast 10 MG Tablet PO (21:00)
[2020-01-16] MEDS: Pravastatin 20 MG Tablet PO (21:00)
[2020-01-16] MEDS: Topiramate 50 MG Tablet PO (21:00)
--- NOTE | 2020-01-16 22:24 | NURSING ---
Pt sister, Krysta called at this time with concern. States she has spoken with the patient on the phone and the patient seems borderline paranoid. States the patient is concerned that we are out to get her. This RN reassures Krysta that this RN will check on the patient and that the physician will be notified as well. This RN tells Krysta she may call back at any time.
[2020-01-17] VITALS (9 sets, daily range): BP systolic 131–156; BP diastolic 78–90; PULSE 70–88; RESP 15–16; TEMP 36.6–36.9; O2SAT 95–97
[2020-01-17] MEDS: oxyCODONE 5 MG Tablet PO ×6 (01:19→23:10)
[2020-01-17] MEDS: Pregabalin 50 MG Capsule 100 MG PO ×3 (05:17→21:13)
[2020-01-17] MEDS: Enoxaparin 40 MG/0.4 ML Syringe SC (05:17)
[2020-01-17] MEDS: Acetaminophen 500 MG Tablet 1000 MG PO ×2 (05:17→16:10)
[2020-01-17] MEDS: Pantoprazole Sodium 40 MG Tablet PO (08:41)
[2020-01-17] MEDS: Lisinopril 20 MG Tablet PO (08:41)
[2020-01-17] MEDS: Escitalopram Oxalate 20 MG Tablet PO (08:42)
[2020-01-17] MEDS: DULoxetine Hcl 30 MG Capsule PO ×2 (08:42→21:13)
--- NOTE | 2020-01-17 09:28 | CASEMGMT ---
MYAH spoke with patient per her request. She asked what was going on and why she was still here. MYAH explained to her that we have to wait on her insurance to give us the okay to [facility]. She said she does not have any clothes, her teeth, etc. SW asked if she had any friends that maybe able to go to her home and get some stuff. She said she does not. She asked if she could go home get stuff and then come back. MYAH told her she cannot do that as she has to go from [facility] to [facility]. SW told her that as soon as MYAH hears something SW will let her know. Plan: [facility] pending insurance approval. Patience RAYO
--- NOTE | 2020-01-17 13:33 | PN_ITS ---
<Yamileth Rodrigues - Last Filed: 01/17/20 13:37> Patient Problems: Active and Suspected Problems (Last Reviewed 01/10/20 @ 21:[address] Quang Mcfarlane MD) Bimalleolar fracture of right ankle (Acute) Bimalleolar fracture of right ankle (Acute) Trimalleolar fracture of ankle, closed (Acute) Dislocation of right ankle joint, initial encounter (Acute) Subjective: Patient seen and examined. Reports increased foot pain today. Frustrated with awaiting SNF acceptance. - Physical Exam Vitals/I&O's: Vital Signs Temp Pulse Resp BP Pulse Ox 98.2 F 83 15 137/90 H 97 01/17/20 08:35 01/17/20 12:32 01/17/20 08:35 01/17/20 08:35 01/17/20 08:35 Oxygen Flow Rate (L/min) [2] 4 Oxygen Flow Rate (L/min) [1 ( 97 Initial Baseline)] Oxygen Flow Rate (L/min) 2 Oxygen Delivery Method [3] Nasal Cannula Oxygen Delivery Method [2] Nasal Cannula Oxygen Delivery Method [1 ( Nasal Cannula Initial Baseline)] Oxygen Delivery Method Room Air Weight: 192 lb 0.362 oz Body Mass Index (BMI) 30.9 Intake and Output for Last 24 Hours 01/15/20 01/16/20 01/17/20 23:59 23:59 23:59 Intake Total 1175 / 1375 2072 / 2072 944 / 944 Output Total 800 / 800 975 / 975 Balance 375 / 575 1097 / 1097 944 / 944 General: Alert, Oriented x3, Cooperative HEENT: Atraumatic, PERRLA, EOMI, Normocephalic Neck: Supple, No JVD, Negative Carotid Bruits Lungs: Clear to auscultation, Normal air movement Cardiovascular: Regular rate, No murmurs Abdomen: Bowel Sounds Present, Soft, Non Tender Extremities: No edema, Capillary Refill Less than 3 Seconds Skin: No rashes, No breakdown Musculoskeletal: No Tenderness to Palpation of Joints or Extremities Neurological: Cranial nerves II-XII grossly intact, Neuro grossly intact Psych/Mental Status: Normal Affect, Appropriate Laboratory Results 01/14/20 04:58: CK Isoenzymes Pending, CK-MM (CK-3) Pending, CK-MB (CK-2) Pending, CK-BB (CK-1) Pending, CK Isoenzymes Interp HOME SPECIALIST, Macro CK HOME SPECIALIST, Macro CK Type I HOME SPECIALIST, Macro CK Type II HOME SPECIALIST Current Medications Acetaminophen (Tylenol) 1,000 mg PO Q8 [facility] Last Admin: 01/17/20 05:17 Dose: 1,000 mg Documented by: Albuterol Sulfate (Ventolin Aerosols) 2.5 mg INHALATION Q2H PRN PRN PRN Reason: Shortness of Breath/Wheezing Baclofen (Lioresal) 10 mg PO TID PRN PRN Reason: MUSCLE SPASTICITY Last Admin: 01/15/20 22:38 Dose: 10 mg Documented by: Dextrose (D50w Syringe) 0 gm IV X1 PRN; Protocol PRN Reason: Hypoglycemia Diphenhydramine HCl (Benadryl) 25 mg PO Q6H PRN PRN Last Admin: 01/16/20 20:30 Dose: 25 mg Documented by: Duloxetine HCl (Cymbalta) 30 mg PO BID [facility] Last Admin: 01/17/20 08:42 Dose: 30 mg Documented by: Enoxaparin Sodium (Lovenox) 40 mg SC DAILY@0600 [facility] Last Admin: 01/17/20 05:17 Dose: 40 mg Documented by: Escitalopram Oxalate (Lexapro) 20 mg PO DAILY [facility] Last Admin: 01/17/20 08:42 Dose: 20 mg Documented by: Glucagon () 1 mg IM .X1 PRN PRN Reason: Hypoglycemia Sodium Chloride () 250 mls @ 15 mls/hr IV .[id number] PRN PRN Reason: Saline Flush Sodium Chloride () 250 mls @ 15 mls/hr IV .[id number] PRN PRN Reason: Additional IVPB Infusion Sodium Chloride () 250 mls @ 15 mls/hr IV .[id number] PRN PRN Reason: Saline Flush Sodium Chloride () 250 mls @ 15 mls/hr IV .[id number] PRN PRN Reason: Additional IVPB Infusion Lisinopril (Zestril) 20 mg PO DAILY [facility] Last Admin: 01/17/20 08:41 Dose: 20 mg Documented by: Montelukast Sodium (Singulair) 10 mg PO QHS [facility] Last Admin: 01/16/20 21:00 Dose: 10 mg Documented by: Ondansetron HCl (Zofran) 4 mg IV Q8H PRN PRN PRN Reason: NAUSEA/VOMITING Oxycodone HCl (Oxyir) 5 - 10 mg PO Q4H PRN PRN PRN Reason: Pain Score 4-10/10 Last Admin: 01/17/20 10:04 Dose: 10 mg Documented by: Pantoprazole Sodium (Protonix) 40 mg PO DAILY [facility] Last Admin: 01/17/20 08:41 Dose: 40 mg Documented by: Pravastatin Sodium (Pravachol) 20 mg PO DAILY@2200 [facility] Last Admin: 01/16/20 21:00 Dose: 20 mg Documented by: Pregabalin (Lyrica) 100 mg PO TID [facility] Last Admin: 01/17/20 05:17 Dose: 100 mg Documented by: Senna/Docusate Sodium (Senokot-S, Faby-Colace) 2 tablet PO BID PRN PRN PRN Reason: Constipation Last Admin: 01/13/20 05:09 Dose: 2 tablet Documented by: Sodium Chloride () 10 - 40 ml IV UD PRN PRN Reason: SALINE FLUSH Last Admin: 01/15/20 13:56 Dose: 10 ml Documented by: Topiramate (Topamax) 50 mg PO QHS [facility] Last Admin: 01/16/20 21:00 Dose: 50 mg Documented by: Medical Necessity - Tobacco Use Smoking Status: Current every day smoker Tobacco Use: Cigarettes Assessment/Plan All Active Problems (Last Reviewed 01/10/20 @ 21:[address] Quang Mcfarlane MD) Bimalleolar fracture of right ankle (Acute) Bimalleolar fracture of right ankle (Acute) Trimalleolar fracture of ankle, closed (Acute) Dislocation of right ankle joint, initial encounter (Acute) Drug overdose (Ruled-out) Morbid obesity (Resolved) Pericardial effusion (Resolved) 1. Acute traumatic right trimalleolar fracture status post closed reduction of right ankle trimalleolar fracture with external fixation 01/11/[address] Washington- management per podiatry. Nonweightbearing right lower extremity. Outpatient follow-up January 19. PRN pain regimen. PT/OT. SNF pending acceptance. 2. Acute kidney injury with acute rhabdomyolysis- resolved with IV fluids. 3. Nasal fracture, acute versus chronic per imaging-outpatient follow-up with maxillofacial surgeon. 4. History of chronic pain disorder-on buprenorphine patch, baclofen and Lyrica. 5. History of seizures-continue Topamax. 6. Chronic intermittent asthma-no exacerbation. As needed albuterol aerosol. Continue Singulair. 7. Hypertension-stable, lisinopril on hold. 8. Depression-continue duloxetine, Lexapro. Patient's family member reports patient has been using various substances and has had increased depression following recent of her mother. Patient will need psychiatric referral at discharge. 9. GERD-continue PPI. 10. Hyperlipidemia-continue statin, fenofibrate. DVT prophylaxis- Lovenox sc Discharge planning: SNF pending acceptance. This patient was seen by LACEY Vega under the supervision of Dr. Grimm. <Susy Grimm - Last Filed: 01/17/20 15:44> Subjective: Pt c/o increased foot pain today. Wants to get to the next LOC and is frustrated with waiting. D/W her that we are just waiting for her insurance to approve it. Per nsg pt did have some hallucinating last night. - Physical Exam Vitals/I&O's: Vital Signs Temp Pulse Resp BP Pulse Ox 98.4 F 76 15 156/88 H 95 01/17/20 14:30 01/17/20 14:30 01/17/20 14:30 01/17/20 14:30 01/17/20 14:30 Oxygen Flow Rate (L/min) [2] 4 Oxygen Flow Rate (L/min) [1 ( 97 Initial Baseline)] Oxygen Flow Rate (L/min) 2 Oxygen Delivery Method [3] Nasal Cannula Oxygen Delivery Method [2] Nasal Cannula Oxygen Delivery Method [1 ( Nasal Cannula Initial Baseline)] Oxygen Delivery Method Room Air Weight: 87.1 kg Body Mass Index (BMI) 30.9 Intake and Output for Last 24 Hours 01/15/20 01/16/20 01/17/20 23:59 23:59 23:59 Intake Total 1175 / 1375 2072 / 2072 944 / 944 Output Total 800 / 800 975 / 975 Balance 375 / 575 1097 / 1097 944 / 944 General: Alert, Oriented x3, Cooperative, No apparent distress, Well developed, Well nourished, - - lying in bed with R foot elevated HEENT: Atraumatic, PERRLA, EOMI, Normocephalic, EAC Clear Neck: Supple, Trachea Midline Lungs: Clear to auscultation, Normal air movement, No rhonchi, No wheeze, No rales Cardiovascular: Regular rate, Regular Rhythm, Normal S1, Normal S2, No murmurs, No Ectopic Activity, No rub noted, No Gallop Abdomen: Bowel Sounds Present, Soft, Non Tender, Non-Distended, Obese Extremities: No clubbing, No cyanosis, No edema, Capillary Refill Less than 3 Seconds, Peripheral Pulses Normal Skin: No rashes, No breakdown Musculoskeletal: - - R LE in ex fix device Neurological: Neuro grossly intact Psych/Mental Status: Normal Affect, Appropriate, Alert and oriented to time, place, person, mood and affect Laboratory Results 01/14/20 04:58: CK Isoenzymes Pending, CK-MM (CK-3) Pending, CK-MB (CK-2) Pending, CK-BB (CK-1) Pending, CK Isoenzymes Interp HOME SPECIALIST, Macro CK HOME SPECIALIST, Macro CK Type I HOME SPECIALIST, Macro CK Type II HOME SPECIALIST Current Medications Acetaminophen (Tylenol) 1,000 mg PO Q8 [facility] Last Admin: 01/17/20 14:48 Dose: Not Given Documented by: Albuterol Sulfate (Ventolin Aerosols) 2.5 mg INHALATION Q2H PRN PRN PRN Reason: Shortness of Breath/Wheezing Baclofen (Lioresal) 10 mg PO TID PRN PRN Reason: MUSCLE SPASTICITY Last Admin: 01/15/20 22:38 Dose: 10 mg Documented by: Dextrose (D50w Syringe) 0 gm IV X1 PRN; Protocol PRN Reason: Hypoglycemia Diphenhydramine HCl (Benadryl) 25 mg PO Q6H PRN PRN Last Admin: 01/16/20 20:30 Dose: 25 mg Documented by: Duloxetine HCl (Cymbalta) 30 mg PO BID [facility] Last Admin: 01/17/20 08:42 Dose: 30 mg Documented by: Enoxaparin Sodium (Lovenox) 40 mg SC DAILY@0600 [facility] Last Admin: 01/17/20 05:17 Dose: 40 mg Documented by: Escitalopram Oxalate (Lexapro) 20 mg PO DAILY [facility] Last Admin: 01/17/20 08:42 Dose: 20 mg Documented by: Glucagon () 1 mg IM .X1 PRN PRN Reason: Hypoglycemia Sodium Chloride () 250 mls @ 15 mls/hr IV .[id number] PRN PRN Reason: Saline Flush Sodium Chloride () 250 mls @ 15 mls/hr IV .[id number] PRN PRN Reason: Additional IVPB Infusion Sodium Chloride () 250 mls @ 15 mls/hr IV .[id number] PRN PRN Reason: Saline Flush Sodium Chloride () 250 mls @ 15 mls/hr IV .[id number] PRN PRN Reason: Additional IVPB Infusion Lisinopril (Zestril) 20 mg PO DAILY [facility] Last Admin: 01/17/20 08:41 Dose: 20 mg Documented by: Montelukast Sodium (Singulair) 10 mg PO QHS [facility] Last Admin: 01/16/20 21:00 Dose: 10 mg Documented by: Ondansetron HCl (Zofran) 4 mg IV Q8H PRN PRN PRN Reason: NAUSEA/VOMITING Oxycodone HCl (Oxyir) 5 - 10 mg PO Q4H PRN PRN PRN Reason: Pain Score 4-10/10 Last Admin: 01/17/20 10:04 Dose: 10 mg Documented by: Pantoprazole Sodium (Protonix) 40 mg PO DAILY [facility] Last Admin: 01/17/20 08:41 Dose: 40 mg Documented by: Pravastatin Sodium (Pravachol) 20 mg PO DAILY@2200 [facility] Last Admin: 01/16/20 21:00 Dose: 20 mg Documented by: Pregabalin (Lyrica) 100 mg PO TID [facility] Last Admin: 01/17/20 14:48 Dose: Not Given Documented by: Senna/Docusate Sodium (Senokot-S, Faby-Colace) 2 tablet PO BID PRN PRN PRN Reason: Constipation Last Admin: 01/13/20 05:09 Dose: 2 tablet Documented by: Sodium Chloride () 10 - 40 ml IV UD PRN PRN Reason: SALINE FLUSH Last Admin: 01/15/20 13:56 Dose: 10 ml Documented by: Topiramate (Topamax) 50 mg PO QHS [facility] Last Admin: 01/16/20 21:00 Dose: 50 mg Documented by: Assessment/Plan The following is a reflection of my independent history and exam ASSESSMENT R Trimalleolar Fracture s/p closed reduction of right ankle trimalleolar fracture with external fixation 01/11/2020 -Dr. Washington ABRAM-resolved Rhabdomyolysis-resolved Nasal fracture Anemia Chronic Pain H/O Seizures HTN HPL GERD Depression Neuropathy Debility H/O Vitamin D Deficiency H/O Asthma PLAN -remains stable -d/o pain today--> 1 extra dose of oxy given -is hallucinating on and off -per d/w nursing...her sister called and states that the pt has a known drug problem with seeking behavior -Dilaudid d/c today -decreased doses of oxy from 5-10 to 5 mg -please do not increase pain meds unless pt evaluated and need noted -still awaiting precert for facility Inpatient E&M: [id number] Subs Hosp L2
[2020-01-17 15:36] LABS: Hemoglobin 11.1 g/dL (12.0-15.0); Mean Corp Hgb Conc 31.7 g/dL (32-36); Mean Corpuscular Hgb 28.7 pg (27.0-32.0); Mean Corpuscular Volume 90.4 fL (81-99); Mean Platelet Vol. 10.4 fl (6.2-12.0); Platelet Count 248 K/mm3 (150-450); RBC Distribution Width CV 14.7 % (11.6-14.6); RBC Distribution Width SD 47.3 fl (35.1-43.9); Red Blood Count 3.87 M/mm3 (4.2-5.4); White Blood Count 6.6 K/mm3 (4.4-11.0)
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
[2020-01-17 16:55] LABS: Anion Gap 4 (5-15); BUN 15 mg/dL (7-18); BUN/Creat Ratio 21.5 RATIO (10-20); Calcium,Total 8.6 mg/dL (8.5-10.1); Chloride 107 mmol/L (98-107); EST Glomerular Filtration Rate 91 mL/min (>60); Est Glom Filt Rate - Afr Amer 110 mL/min (>60); Estimated Creatinine Clearance 81.01 ml/min; Glucose 95 mg/dL (74-106); Potassium 3.7 mmol/L (3.5-5.1); Sodium Level 140 mmol/L (136-145)
--- NOTE | 2020-01-17 18:37 | NURSING ---
1800- charge nurse and security talked with patient she called 911 several times stating that she is worried and felt unsafe she heard people talking in [place]
[2020-01-17] MEDS: Montelukast 10 MG Tablet PO (21:13)
[2020-01-17] MEDS: Pravastatin 20 MG Tablet PO (21:13)
[2020-01-17] MEDS: Topiramate 50 MG Tablet PO (21:19)
--- NOTE | 2020-01-17 22:48 | NURSING ---
The charge nurse notified this RN that pt had called 911. This RN and hospital senior network security engineer into patient room to discuss this with her. Pt seems paranoid. Pt states she isn't going to say anything else because she wants to stay alive. This RN reassured pt that we are here to keep her safe. Will continue to monitor.
--- NOTE | 2020-01-18 00:37 | NURSING ---
This RN into pt room to speak to pt at this time per [employer] request. Pt wanting to have a cigarette. This RN offered Nicotine patch; pt refused. Pt reports she feels dirty; this RN offered to help pt get cleaned up; pt refused. Previously, pt reported seeing a worm on the ceiling. Pt reports that something is off. This RN again reassures pt that we want to her be comfortable. Pt states that she does not feel unsafe anymore.
--- NOTE | 2020-01-18 01:22 | NURSING ---
This RN to pt room at this time. Pt feels as though something is wrong with her right foot. Pt states she can't bend it anymore and states she could previously. External fixator remains in place. Pt able to wiggle toes. Able to feel this RN touching toes. Will continue to monitor.
[2020-01-18 02:40] VITALS: BP 146/86; PULSE 74; RESP 16; TEMP 36.7; O2SAT 96
[2020-01-18 03:01] VITALS: PULSE 86
[2020-01-18] MEDS: Pregabalin 50 MG Capsule 100 MG PO ×2 (05:15→14:41)
[2020-01-18] MEDS: oxyCODONE 5 MG Tablet PO ×2 (05:15→11:19)
[2020-01-18] MEDS: Enoxaparin 40 MG/0.4 ML Syringe SC (05:16)
[2020-01-18] MEDS: Acetaminophen 500 MG Tablet 1000 MG PO ×2 (05:16→14:41)
[2020-01-18 06:43] VITALS: PULSE 78
[2020-01-18 08:40] VITALS: BP 148/84; PULSE 80; RESP 15; TEMP 36.7; O2SAT 97
[2020-01-18] MEDS: Lisinopril 20 MG Tablet PO (08:46)
[2020-01-18] MEDS: Escitalopram Oxalate 20 MG Tablet PO (08:46)
[2020-01-18] MEDS: DULoxetine Hcl 30 MG Capsule PO (08:46)
[2020-01-18] MEDS: Pantoprazole Sodium 40 MG Tablet PO (08:46)
[2020-01-18] MEDS: QUEtiapine 25 MG Tablet PO (09:39)
--- NOTE | 2020-01-18 11:54 | PN_ITS ---
Patient Problems: Active and Suspected Problems (Last Reviewed 01/10/20 @ 21:[address] Quang Mcfarlane MD) Bimalleolar fracture of right ankle (Acute) Bimalleolar fracture of right ankle (Acute) Trimalleolar fracture of ankle, closed (Acute) Dislocation of right ankle joint, initial encounter (Acute) Subjective: Patient seen and examined. Agitated this morning, confused and hallucinating. Requesting increased pain medicine. - Physical Exam Vitals/I&O's: Vital Signs Temp Pulse Resp BP Pulse Ox 98.1 F 80 15 148/84 H 97 01/18/20 08:40 01/18/20 08:40 01/18/20 08:40 01/18/20 08:40 01/18/20 08:40 Oxygen Flow Rate (L/min) [2] 4 Oxygen Flow Rate (L/min) [1 ( 97 Initial Baseline)] Oxygen Flow Rate (L/min) 2 Oxygen Delivery Method [3] Nasal Cannula Oxygen Delivery Method [2] Nasal Cannula Oxygen Delivery Method [1 ( Nasal Cannula Initial Baseline)] Oxygen Delivery Method Room Air Weight: 192 lb 0.362 oz Body Mass Index (BMI) 30.9 Intake and Output for Last 24 Hours 01/16/20 01/17/20 01/18/20 23:59 23:59 23:59 Intake Total 2072 / 2072 1546 / 1546 320 / 320 Output Total 975 / 975 1200 / 1200 360 / 360 Balance 1097 / 1097 346 / 346 -40 / -40 General: Alert, Oriented x3, Cooperative HEENT: Atraumatic, PERRLA, EOMI, Normocephalic Neck: Supple, No JVD, Negative Carotid Bruits Lungs: Clear to auscultation, Normal air movement Cardiovascular: Regular rate, Regular Rhythm, Normal S1, Normal S2, No murmurs Abdomen: Bowel Sounds Present, Soft, Non Tender, Non-Distended Extremities: No clubbing, No cyanosis, No edema, Capillary Refill Less than 3 Seconds Skin: No rashes, No breakdown Musculoskeletal: No Tenderness to Palpation of Joints or Extremities Neurological: Cranial nerves II-XII grossly intact, Neuro grossly intact Psych/Mental Status: Agitated, Impulsive Laboratory Results 01/17/20 15:26: WBC 6.6, RBC 3.87 L, Hgb 11.1 L, Hct 35.0 L, MCV 90.4, MCH 28.7, MCHC 31.7 L, RDW Std Deviation 47.3 H, RDW Coeff of Dyana 14.7 H, Plt Count 248, MPV 10.4 01/17/20 15:26: Sodium 140, Potassium 3.7, Chloride 107, Carbon Dioxide 29.0, Anion Gap 4 L, BUN 15, Creatinine 0.70, Estim Creat Clear Calc 81.01, Est GFR (MDRD) Af Amer 110, Est GFR (MDRD) Non-Af 91, BUN/Creatinine Ratio 21.5 H, Glucose 95, Calcium 8.6 Current Medications Acetaminophen (Tylenol) 1,000 mg PO Q8 [facility] Last Admin: 01/18/20 05:16 Dose: 1,000 mg Documented by: Albuterol Sulfate (Ventolin Aerosols) 2.5 mg INHALATION Q2H PRN PRN PRN Reason: Shortness of Breath/Wheezing Baclofen (Lioresal) 10 mg PO TID PRN PRN Reason: MUSCLE SPASTICITY Last Admin: 01/15/20 22:38 Dose: 10 mg Documented by: Dextrose (D50w Syringe) 0 gm IV X1 PRN; Protocol PRN Reason: Hypoglycemia Diphenhydramine HCl (Benadryl) 25 mg PO Q6H PRN PRN Last Admin: 01/16/20 20:30 Dose: 25 mg Documented by: Duloxetine HCl (Cymbalta) 30 mg PO BID [facility] Last Admin: 01/18/20 08:46 Dose: 30 mg Documented by: Enoxaparin Sodium (Lovenox) 40 mg SC DAILY@0600 [facility] Last Admin: 01/18/20 05:16 Dose: 40 mg Documented by: Escitalopram Oxalate (Lexapro) 20 mg PO DAILY [facility] Last Admin: 01/18/20 08:46 Dose: 20 mg Documented by: Glucagon () 1 mg IM .X1 PRN PRN Reason: Hypoglycemia Sodium Chloride () 250 mls @ 15 mls/hr IV .[id number] PRN PRN Reason: Saline Flush Sodium Chloride () 250 mls @ 15 mls/hr IV .[id number] PRN PRN Reason: Additional IVPB Infusion Sodium Chloride () 250 mls @ 15 mls/hr IV .[id number] PRN PRN Reason: Saline Flush Sodium Chloride () 250 mls @ 15 mls/hr IV .[id number] PRN PRN Reason: Additional IVPB Infusion Lisinopril (Zestril) 20 mg PO DAILY [facility] Last Admin: 01/18/20 08:46 Dose: 20 mg Documented by: Montelukast Sodium (Singulair) 10 mg PO QHS [facility] Last Admin: 01/17/20 21:13 Dose: 10 mg Documented by: Ondansetron HCl (Zofran) 4 mg IV Q8H PRN PRN PRN Reason: NAUSEA/VOMITING Oxycodone HCl (Oxyir) 5 mg PO Q6H PRN PRN PRN Reason: Pain Score 6-10/10 Last Admin: 01/18/20 11:19 Dose: 5 mg Documented by: Pantoprazole Sodium (Protonix) 40 mg PO DAILY [facility] Last Admin: 01/18/20 08:46 Dose: 40 mg Documented by: Pravastatin Sodium (Pravachol) 20 mg PO DAILY@2200 [facility] Last Admin: 01/17/20 21:13 Dose: 20 mg Documented by: Pregabalin (Lyrica) 100 mg PO TID [facility] Last Admin: 01/18/20 05:15 Dose: 100 mg Documented by: Quetiapine Fumarate (Seroquel) 25 mg PO BID [facility] Last Admin: 01/18/20 09:39 Dose: 25 mg Documented by: Senna/Docusate Sodium (Senokot-S, Faby-Colace) 2 tablet PO BID PRN PRN PRN Reason: Constipation Last Admin: 01/13/20 05:09 Dose: 2 tablet Documented by: Sodium Chloride () 10 - 40 ml IV UD PRN PRN Reason: SALINE FLUSH Last Admin: 01/15/20 13:56 Dose: 10 ml Documented by: Topiramate (Topamax) 50 mg PO QHS [facility] Last Admin: 01/17/20 21:19 Dose: 50 mg Documented by: Medical Necessity - Tobacco Use Smoking Status: Current every day smoker Tobacco Use: Cigarettes Assessment/Plan All Active Problems (Last Reviewed 01/10/20 @ 21:[address] Quang Mcfarlane MD) Bimalleolar fracture of right ankle (Acute) Bimalleolar fracture of right ankle (Acute) Trimalleolar fracture of ankle, closed (Acute) Dislocation of right ankle joint, initial encounter (Acute) Drug overdose (Ruled-out) Morbid obesity (Resolved) Pericardial effusion (Resolved) 1. Acute traumatic right trimalleolar fracture status post closed reduction of right ankle trimalleolar fracture with external fixation 01/11/[address] Washington- management per podiatry. Nonweightbearing right lower extremity. Outpatient follow-up January 19. PRN pain regimen. PT/OT. SNF pending acceptance. 2. Acute kidney injury with acute rhabdomyolysis- resolved with IV fluids. 3. Nasal fracture, acute versus chronic per imaging-outpatient follow-up with maxillofacial surgeon. 4. History of chronic pain disorder-on buprenorphine patch, baclofen and Lyrica. Buprenorphine patch discontinued as we do not carry it. PRN pain regimen. 5. History of seizures-continue Topamax. 6. Chronic intermittent asthma-no exacerbation. As needed albuterol aerosol. Continue Singulair. 7. Hypertension-stable, lisinopril on hold. 8. Depression-continue duloxetine, Lexapro. Patient's family member reports patient has been using various substances and has had increased depression following recent of her mother. Patient will need psychiatric referral at discharge. 9. GERD-continue PPI. 10. Hyperlipidemia-continue statin, fenofibrate. DVT prophylaxis- Lovenox sc Discharge planning: SNF pending acceptance. This patient was seen by LACEY Vega under the supervision of Dr. Grimm.
--- NOTE | 2020-01-18 13:06 | PCM.DC.SUM ---
<Yamileth Rodrigues - Last Filed: 01/18/20 13:37> Discharge Date and Diagnosis Date of Admission: 01/10/20 Date of Discharge: 01/18/20 - Primary Discharge Diagnosis Acute Problems: Active Problems (Last Reviewed 01/10/20 @ 21:[address] Quang Mcfarlane MD) 1. Acute traumatic right trimalleolar/bimalleolar fracture status post closed reduction of right ankle trimalleolar fracture with external fixation 01/11/[address] Washington 2. Acute kidney injury with acute rhabdomyolysis 3. Nasal fracture, acute versus chronic per imaging 4. History of chronic pain disorder 5. History of seizures 6. Chronic intermittent asthma 7. Hypertension 8. Depression 9. GERD 10. Hyperlipidemia - Secondary Discharge Diagnosis Chronic Problems: Chronic Problems (Last Reviewed 01/10/20 @ 21:[address] 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) Degeneration of intervertebral disc of lumbosacral region (Chronic) Radiculopathy of lumbosacral region (Chronic) Spondylosis of lumbosacral region without myelopathy or radiculopathy (Chronic) Lumbar facet arthropathy (Chronic) Headache (Chronic) Rosacea (Chronic) Chronic sinusitis (Chronic) Osteopenia (Chronic) Smoking greater than 40 pack years (Chronic) Congestion of nasal sinus (Chronic) Hypersomnolence (Chronic) Fatigue (Chronic) Neuropathy (Chronic) Vitamin D deficiency (Chronic) History of seizures (Chronic) Asthma (Chronic) Seasonal allergies (Chronic) Hyperlipidemia (Chronic) Seizure disorder (Chronic) Right hip pain (Chronic) Hypertension (Chronic) Chronic back pain (Chronic) Seizures (Chronic) Hospital Course and Treatment Imaging Results: Diagnostic Data Brain CT 01/10/20 18:34 IMPRESSION: No acute abnormalities. Specifically no evidence for acute intracranial bleed Posttraumatic deformity of the distal nasal bones which is new finding since prior study. However the bony fragments appear sclerotic suggesting chronic injury. Clinical correlation recommended Electronically Signed: Demetrius Bruno MD at 19:36 EDT , Service support , Cervical Spine CT 01/10/20 18:37 IMPRESSION: No acute fracture or subluxation. Mild spondylosis most pronounced at C5-6. Electronically Signed: Demetrius Bruno MD at 19:39 EDT , Service support , Ankle X-Ray 01/11/20 08:40 IMPRESSION: Status post fluoroscopic-guided closed reduction and external fixator placement Electronically Signed: Demetrius Bruno MD at 16:12 EDT , Service support , Foot X-Ray 01/11/20 15:13 IMPRESSION: Status post closed reduction and external fixation device placement of acute trimalleolar fracture Electronically Signed: Demetrius Bruno MD at 19:20 EDT , Service support , Lower Extremity CT 01/11/20 15:13 IMPRESSION: Trimalleolar fracture of the ankle with fracture fragments in near anatomic alignment and position with external fixator pins in situ Electronically Signed: Demetrius Bruno MD at 17:36 EDT , Service support , Tibia/Fibula X-Ray 01/11/20 15:13 IMPRESSION: Status post closed reduction and external fixation device placement Electronically Signed: Demetrius Bruno MD at 16:42 EDT , Service support , Chest X-Ray 01/13/20 07:20 IMPRESSION: 1. Curvilinear subsegmental atelectasis in the left upper lobe. 2. No other additional findings or changes since 01/10/2020. Electronically Signed: Seng Gibson MD at 9:02 EDT , Service support , Dr. David Washington- podiatry Operations: - - closed reduction of right ankle trimalleolar fracture with external fixation 01/11/[address] Washington Procedures: None Summary of Care Provided: The patient is a 59 year old F admitted 01/10/2020 due to fall with right ankle pain. 1. Acute traumatic right trimalleolar fracture status post closed reduction of right ankle trimalleolar fracture with external fixation 01/11/[address] Washington-management per podiatry. Nonweightbearing right lower extremity. Outpatient follow-up January 19. PRN pain regimen. PT/OT. Aspirin 81 mg p.o. twice daily for DVT prophylaxis. On doxycycline empirically per podiatry. SNF at discharge with further podiatry follow-up. 2. Acute kidney injury with acute rhabdomyolysis- resolved with IV fluids. 3. Nasal fracture, acute versus chronic per imaging-outpatient follow-up with maxillofacial surgeon. 4. History of chronic pain disorder-on buprenorphine patch, baclofen and Lyrica. Buprenorphine patch discontinued as we do not carry it. Recommend follow-up with Dr. Echols who patient follows with for pain management given #1 with new pain concerns as well as history of opioid/drug abuse. 5. History of seizures-continue Topamax. 6. Chronic intermittent asthma-no exacerbation. As needed albuterol aerosol. Continue Singulair. 7. Hypertension-stable, lisinopril on hold. 8. Depression-continue duloxetine, Lexapro. Patient's family member reports patient has been using various substances and has had increased depression following recent of her mother. Patient will need psychiatric referral at discharge. Recommend psychiatric referral at SNF. 9. GERD-continue PPI. 10. Hyperlipidemia-continue statin, fenofibrate. General: Alert, Oriented x3, Cooperative HEENT: Atraumatic, PERRLA, EOMI, Normocephalic Neck: Supple, No JVD, Negative Carotid Bruits Lungs: Clear to auscultation, Normal air movement Cardiovascular: Regular rate, Regular Rhythm, Normal S1, Normal S2, No murmurs Abdomen: Bowel Sounds Present, Soft, Non Tender, Non-Distended Extremities: No clubbing, No cyanosis, No edema, Capillary Refill Less than 3 Seconds Skin: No rashes, No breakdown Musculoskeletal: No Tenderness to Palpation of Joints or Extremities Neurological: Cranial nerves II-XII grossly intact, Neuro grossly intact Psych/Mental Status: Agitated, Impulsive Patient seen and examined prior to discharge. Physical assessment as noted above. Patient is stable for discharge with follow up recommendations as noted above. This patient was seen by LACEY Vega under the supervision of Dr. Grimm. - Physical Exam Vitals/I&O's: Vital Signs Temp Pulse Resp BP Pulse Ox 98.1 F 80 15 148/84 H 97 01/18/20 08:40 01/18/20 08:40 01/18/20 08:40 01/18/20 08:40 01/18/20 08:40 Oxygen Flow Rate (L/min) [2] 4 Oxygen Flow Rate (L/min) [1 ( 97 Initial Baseline)] Oxygen Flow Rate (L/min) 2 Oxygen Delivery Method [3] Nasal Cannula Oxygen Delivery Method [2] Nasal Cannula Oxygen Delivery Method [1 ( Nasal Cannula Initial Baseline)] Oxygen Delivery Method Room Air Weight: 192 lb 0.362 oz Body Mass Index (BMI) 30.9 Intake and Output for Last 24 Hours 01/16/20 01/17/20 01/18/20 23:59 23:59 23:59 Intake Total 2072 / 2072 1546 / 1546 1000 / 1000 Output Total 975 / 975 1200 / 1200 760 / 760 Balance 1097 / 1097 346 / 346 240 / 240 Laboratory Results 01/17/20 15:26: WBC 6.6, RBC 3.87 L, Hgb 11.1 L, Hct 35.0 L, MCV 90.4, MCH 28.7, MCHC 31.7 L, RDW Std Deviation 47.3 H, RDW Coeff of Dyana 14.7 H, Plt Count 248, MPV 10.4 01/17/20 15:26: Sodium 140, Potassium 3.7, Chloride 107, Carbon Dioxide 29.0, Anion Gap 4 L, BUN 15, Creatinine 0.70, Estim Creat Clear Calc 81.01, Est GFR (MDRD) Af Amer 110, Est GFR (MDRD) Non-Af 91, BUN/Creatinine Ratio 21.5 H, Glucose 95, Calcium 8.6 Current Medications Acetaminophen (Tylenol) 1,000 mg PO Q8 MAURIZIO Last Admin: 01/18/20 05:16 Dose: 1,000 mg Documented by: Albuterol Sulfate (Ventolin Aerosols) 2.5 mg INHALATION Q2H PRN PRN PRN Reason: Shortness of Breath/Wheezing Baclofen (Lioresal) 10 mg PO TID PRN PRN Reason: MUSCLE SPASTICITY Last Admin: 01/15/20 22:38 Dose: 10 mg Documented by: Dextrose (D50w Syringe) 0 gm IV X1 PRN; Protocol PRN Reason: Hypoglycemia Diphenhydramine HCl (Benadryl) 25 mg PO Q6H PRN PRN Last Admin: 01/16/20 20:30 Dose: 25 mg Documented by: Duloxetine HCl (Cymbalta) 30 mg PO BID COUNT INCLUDES THE [facility] Last Admin: 01/18/20 08:46 Dose: 30 mg Documented by: Enoxaparin Sodium (Lovenox) 40 mg SC DAILY@0600 COUNT INCLUDES THE [facility] Last Admin: 01/18/20 05:16 Dose: 40 mg Documented by: Escitalopram Oxalate (Lexapro) 20 mg PO DAILY COUNT INCLUDES THE [facility] Last Admin: 01/18/20 08:46 Dose: 20 mg Documented by: Glucagon () 1 mg IM .X1 PRN PRN Reason: Hypoglycemia Sodium Chloride () 250 mls @ 15 mls/hr IV .[id number] PRN PRN Reason: Saline Flush Sodium Chloride () 250 mls @ 15 mls/hr IV .[id number] PRN PRN Reason: Additional IVPB Infusion Sodium Chloride () 250 mls @ 15 mls/hr IV .[id number] PRN PRN Reason: Saline Flush Sodium Chloride () 250 mls @ 15 mls/hr IV .[id number] PRN PRN Reason: Additional IVPB Infusion Lisinopril (Zestril) 20 mg PO DAILY COUNT INCLUDES THE [facility] Last Admin: 01/18/20 08:46 Dose: 20 mg Documented by: Montelukast Sodium (Singulair) 10 mg PO QHS COUNT INCLUDES THE [facility] Last Admin: 01/17/20 21:13 Dose: 10 mg Documented by: Ondansetron HCl (Zofran) 4 mg IV Q8H PRN PRN PRN Reason: NAUSEA/VOMITING Oxycodone HCl (Oxyir) 5 mg PO Q6H PRN PRN PRN Reason: Pain Score 6-10/10 Last Admin: 01/18/20 11:19 Dose: 5 mg Documented by: Pantoprazole Sodium (Protonix) 40 mg PO DAILY COUNT INCLUDES THE [facility] Last Admin: 01/18/20 08:46 Dose: 40 mg Documented by: Pravastatin Sodium (Pravachol) 20 mg PO DAILY@2200 COUNT INCLUDES THE [facility] Last Admin: 01/17/20 21:13 Dose: 20 mg Documented by: Pregabalin (Lyrica) 100 mg PO TID COUNT INCLUDES THE [facility] Last Admin: 01/18/20 05:15 Dose: 100 mg Documented by: Quetiapine Fumarate (Seroquel) 25 mg PO BID COUNT INCLUDES THE [facility] Last Admin: 01/18/20 09:39 Dose: 25 mg Documented by: Senna/Docusate Sodium (Senokot-S, Faby-Colace) 2 tablet PO BID PRN PRN PRN Reason: Constipation Last Admin: 01/13/20 05:09 Dose: 2 tablet Documented by: Sodium Chloride () 10 - 40 ml IV UD PRN PRN Reason: SALINE FLUSH Last Admin: 01/15/20 13:56 Dose: 10 ml Documented by: Topiramate (Topamax) 50 mg PO QHS COUNT INCLUDES THE [facility] Last Admin: 01/17/20 21:19 Dose: 50 mg Documented by: Discharge Diet: No Restrictions Discharge Activity: May Not Drive, May Not Shower, Use Walker, Use Crutches Weight Bearing Status: No weight bearing Keep extremity elevated above heart level: Right Leg Additional Activity Instructions:: 1. Keep the dressing clean, dry, intact to the right lower extremity. Do not remove the dressing. Do not get the dressing wet. If get dressing wet, call office for further instruction. 2. Ice around right knee 30 minutes every hour as needed. 3. Elevate right foot above level of heart as often as possible. Make sure device was used for elevation and placed underneath the right calf so that nothing is touching the right heel or the external fixator pins. 4. No walking or standing on right foot. Use crutches or other assistive devices as needed. 5. Begin taking postoperative antibiotics, DVT prophylaxis, and pain medication as instructed. Call your doctor if your incision/area has: Continuous Slow Oozing, Sudden Increased Bleeding Call your doctor if you observe: Fever of 101 or Higher, Shortness of breath, Increased palpitations (irregular heartbeat), Calf discomfort Cleanse incision/area with: Keep Dressing Clean & Dry Home Medications: Medications to take at Discharge Albuterol Inhaler [Ventolin Hfa] 2 puff INHALATION Q4H PRN PRN 06/29/17 baclofen 20 mg tablet 20 mg PO TID PRN #90 tab 10/28/18 duloxetine 30 mg capsule,delayed release 30 mg PO BID 02/02/19 pregabalin 100 mg capsule 100 mg PO TID 03/25/19 Escitalopram Oxalate [Lexapro] 20 mg PO DAILY 12/22/19 Fenofibrate Nanocrystallized [Tricor] 48 mg PO DAILY 12/22/19 Montelukast [Singulair] 10 mg PO QHS 12/22/19 Pravastatin Sodium 20 mg PO DAILY 12/22/19 Topiramate [Topamax] 50 mg PO QHS 12/22/19 Lisinopril 40 mg PO DAILY 01/10/20 Omeprazole 1 tab PO DAILY 01/10/20 Aspirin E.C. [Ecotrin] 81 mg PO BID #30 tab 01/18/20 Doxycycline 100 mg PO BID 14 Days #28 cap 01/18/20 Oxycodone HCl/Acetaminophen [Percocet 5-325 mg Tablet] 1 - 2 ea PO Q6H PRN PRN 7 Days #42 tab 01/18/20 Following Prescrptions Were Given to Patient: Doxycycline 100 mg PO BID 14 Days #28 cap Aspirin E.C. [Ecotrin] 81 mg PO BID #30 tab Oxycodone HCl/Acetaminophen [Percocet 5-325 mg Tablet] 1 - 2 ea PO Q6H PRN PRN 7 Days #42 tab PRN Reason: Pain Score 6-10/10 Primary Care Physician: Marlen Lucia MD [Primary Care Provider] - Please follow up with your Primary Care Physician in: 1 Week Please Follow Up With: David Washington DPM When: On 01/20/2020 in [place] [facility]. Please Follow Up With: Al Gregory DO - Pain management When: 1 week Please Follow Up With: Psych eval When: referral on admission Disposition: Shelter facility Minutes spent on discharge:: 35 Patient Condition:: Stable Medical Necessity - Tobacco Use Smoking Status: Current every day smoker Tobacco Use: Cigarettes Meaningful Use Info Meaningful Use Diagnoses (Choose all that apply): None applicable <Susy Grimm - Last Filed: 01/18/20 14:08> Discharge Date and Diagnosis - Secondary Discharge Diagnosis Chronic Problems: Chronic Problems (Last Reviewed 01/10/20 @ 21:[address] 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) Degeneration of intervertebral disc of lumbosacral region (Chronic) Radiculopathy of lumbosacral region (Chronic) Spondylosis of lumbosacral region without myelopathy or radiculopathy (Chronic) Lumbar facet arthropathy (Chronic) Headache (Chronic) Rosacea (Chronic) Chronic sinusitis (Chronic) Osteopenia (Chronic) Smoking greater than 40 pack years (Chronic) Congestion of nasal sinus (Chronic) Hypersomnolence (Chronic) Fatigue (Chronic) Neuropathy (Chronic) Vitamin D deficiency (Chronic) History of seizures (Chronic) Asthma (Chronic) Seasonal allergies (Chronic) Hyperlipidemia (Chronic) Seizure disorder (Chronic) Right hip pain (Chronic) Hypertension (Chronic) Chronic back pain (Chronic) Seizures (Chronic) Hospital Course and Treatment Summary of Care Provided: The following is a reflection of my independent history and exam ASSESSMENT R Trimalleolar Fracture s/p closed reduction of right ankle trimalleolar fracture with external fixation 01/11/2020 -Dr. Washington ABRAM-resolved Rhabdomyolysis-resolved Nasal fracture Anemia Chronic Pain H/O Seizures HTN HPL GERD Depression Neuropathy Debility H/O Vitamin D Deficiency H/O Asthma PLAN -remains stable medically but behavior is odd at times -per d/w nursing...her sister called and states that the pt has a known drug problem with seeking behavior -confusion with paranoia when she is withdrawing per his sister as well -we have been weaning her pain medication as she was requesting the max -would strongly recommend psychiatric evaluation--> she is A&O x 4 but has intermittent hallucinations -suspect she has underlying psych issues that were never diagnosed -no psych services available here -Doxy per ortho at d/c-->has been on clindamycin here -will need ortho f/u - will need f/u with Dr. Echols who patient follows with for pain management given new pain concerns as well as history of opioid/drug abuse -lab work reviewed and all is stable - Physical Exam Vitals/I&O's: Vital Signs Temp Pulse Resp BP Pulse Ox 98.1 F 80 15 148/84 H 97 01/18/20 08:40 01/18/20 08:40 01/18/20 08:40 01/18/20 08:40 07/08/20 08:40 Oxygen Flow Rate (L/min) [2] 4 Oxygen Flow Rate (L/min) [1 ( 97 Initial Baseline)] Oxygen Flow Rate (L/min) 2 Oxygen Delivery Method [3] Nasal Cannula Oxygen Delivery Method [2] Nasal Cannula Oxygen Delivery Method [1 ( Nasal Cannula Initial Baseline)] Oxygen Delivery Method Room Air Weight: 87.1 kg Body Mass Index (BMI) 30.9 Intake and Output for Last 24 Hours 01/16/20 01/17/20 01/18/20 23:59 23:59 23:59 Intake Total 2071 / 2 1546 / 1546 1000 / 1000 Output Total 975 / 975 1200 / 1200 760 / 760 Balance 1097 / 1097 346 / 346 240 / 240 General: Alert, Oriented x3, Cooperative, No apparent distress, Well developed, Well nourished, - - WF lying in bed, intermittently talking as if someone else is in the room HEENT: PERRLA, EOMI, EAC Clear, - - healing ecchymosis under eyes and L of her mouth Oral: Moist Mucosa, No Gingival or Mucosal Lesions/ Ulcerations Neck: Supple, No Nodes, Trachea Midline Lungs: Clear to auscultation, Normal air movement, No rhonchi, No wheeze, No rales Cardiovascular: Regular rate, Regular Rhythm, Normal S1, Normal S2, No murmurs, No Ectopic Activity, No rub noted, No Gallop Abdomen: Bowel Sounds Present, Soft, Non Tender, Non-Distended, No Hepato-splenomegaly Extremities: No clubbing, No cyanosis, No edema, Capillary Refill Less than 3 Seconds, Peripheral Pulses Normal Skin: No rashes, No breakdown Musculoskeletal: No Tenderness to Palpation of Joints or Extremities, No Muscle Wasting, - - R LE in ex fix device Neurological: Cranial nerves II-XII grossly intact, Neuro grossly intact, Muscle tone normal, Sensory exam intact to light touch and pain, Coordination normal Psych/Mental Status: Hallucinations - intermittently, - - A&O x 4 but has intermittent hallucinations then states that she knows those things aren't real Laboratory Results 01/17/20 15:26: WBC 6.6, RBC 3.87 L, Hgb 11.1 L, Hct 35.0 L, MCV 90.4, MCH 28.7, MCHC 31.7 L, RDW Std Deviation 47.3 H, RDW Coeff of Dyana 14.7 H, Plt Count 248, MPV 10.4 01/17/20 15:26: Sodium 140, Potassium 3.7, Chloride 107, Carbon Dioxide 29.0, Anion Gap 4 L, BUN 15, Creatinine 0.70, Estim Creat Clear Calc 81.01, Est GFR (MDRD) Af Amer 110, Est GFR (MDRD) Non-Af 91, BUN/Creatinine Ratio 21.5 H, Glucose 95, Calcium 8.6 Current Medications Acetaminophen (Tylenol) 1,000 mg PO Q8 COUNT INCLUDES THE [facility] Last Admin: 01/18/20 05:16 Dose: 1,000 mg Documented by: Albuterol Sulfate (Ventolin Aerosols) 2.5 mg INHALATION Q2H PRN PRN PRN Reason: Shortness of Breath/Wheezing Baclofen (Lioresal) 10 mg PO TID PRN PRN Reason: MUSCLE SPASTICITY Last Admin: 01/15/20 22:38 Dose: 10 mg Documented by: Dextrose (D50w Syringe) 0 gm IV X1 PRN; Protocol PRN Reason: Hypoglycemia Diphenhydramine HCl (Benadryl) 25 mg PO Q6H PRN PRN Last Admin: 01/16/20 20:30 Dose: 25 mg Documented by: Duloxetine HCl (Cymbalta) 30 mg PO BID COUNT INCLUDES THE [facility] Last Admin: 01/18/20 08:46 Dose: 30 mg Documented by: Enoxaparin Sodium (Lovenox) 40 mg SC DAILY@0600 COUNT INCLUDES THE [facility] Last Admin: 01/18/20 05:16 Dose: 40 mg Documented by: Escitalopram Oxalate (Lexapro) 20 mg PO DAILY COUNT INCLUDES THE [facility] Last Admin: 01/18/20 08:46 Dose: 20 mg Documented by: Glucagon () 1 mg IM .X1 PRN PRN Reason: Hypoglycemia Sodium Chloride () 250 mls @ 15 mls/hr IV .[id number] PRN PRN Reason: Saline Flush Sodium Chloride () 250 mls @ 15 mls/hr IV .[id number] PRN PRN Reason: Additional IVPB Infusion Sodium Chloride () 250 mls @ 15 mls/hr IV .[id number] PRN PRN Reason: Saline Flush Sodium Chloride () 250 mls @ 15 mls/hr IV .[id number] PRN PRN Reason: Additional IVPB Infusion Lisinopril (Zestril) 20 mg PO DAILY COUNT INCLUDES THE [facility] Last Admin: 01/18/20 08:46 Dose: 20 mg Documented by: Montelukast Sodium (Singulair) 10 mg PO QHS COUNT INCLUDES THE [facility] Last Admin: 01/17/20 21:13 Dose: 10 mg Documented by: Ondansetron HCl (Zofran) 4 mg IV Q8H PRN PRN PRN Reason: NAUSEA/VOMITING Oxycodone HCl (Oxyir) 5 mg PO Q6H PRN PRN PRN Reason: Pain Score 6-10/10 Last Admin: 01/18/20 11:19 Dose: 5 mg Documented by: Pantoprazole Sodium (Protonix) 40 mg PO DAILY COUNT INCLUDES THE [facility] Last Admin: 01/18/20 08:46 Dose: 40 mg Documented by: Pravastatin Sodium (Pravachol) 20 mg PO DAILY@2200 COUNT INCLUDES THE [facility] Last Admin: 01/17/20 21:13 Dose: 20 mg Documented by: Pregabalin (Lyrica) 100 mg PO TID COUNT INCLUDES THE [facility] Last Admin: 01/18/20 05:15 Dose: 100 mg Documented by: Quetiapine Fumarate (Seroquel) 25 mg PO BID COUNT INCLUDES THE [facility] Last Admin: 01/18/20 09:39 Dose: 25 mg Documented by: Senna/Docusate Sodium (Senokot-S, Faby-Colace) 2 tablet PO BID PRN PRN PRN Reason: Constipation Last Admin: 01/13/20 05:09 Dose: 2 tablet Documented by: Sodium Chloride () 10 - 40 ml IV UD PRN PRN Reason: SALINE FLUSH Last Admin: 01/15/20 13:56 Dose: 10 ml Documented by: Topiramate (Topamax) 50 mg PO QHS COUNT INCLUDES THE [facility] Last Admin: 01/17/20 21:19 Dose: 50 mg Documented by: Meaningful Use Info Meaningful Use Diagnoses (Choose all that apply): None applicable Inpatient E&M: [id number] [facility]
--- NOTE | 2020-01-18 13:14 | CASEMGMT ---
Received phone call from Rupal at [facility] and patient was approved. MYAH notified physician and [facility] [employer]. Orders were faxed to [facility]. Convalescent was completed on . MYAH called [facility] and arranged for patient to get picked up at 3p via cot. MYAH notified RN, secretary to board of commissioners, and will notify patient's sister and patient. MYAH did talk with Rupal at [facility] and let her know patient does have a history of drug abuse. MYAH explained her sister called in and said she has stolen meds from family before. MYAH told her they will need to keep an eye on her. She verbalized understanding. Plan: d/c to [facility] at [place] under intermediate level of care. [facility] will pick her up at 3p via cot. Patience ROMERO MSW
--- NOTE | 2020-01-18 13:43 | NURSING ---
Report called to [facility] [phone] to Jazz Alexandre RN
--- NOTE | 2020-01-18 13:50 | PHA.DC.MR ---
Pharmacy Service has performed discharge medication reconciliation for this patient. The patient's discharge medication list was reviewed for discrepancies and discrepancies were resolved. Home Medications Albuterol Inhaler [Ventolin Hfa] 2 puff INHALATION Q4H PRN PRN 06/29/17 baclofen 20 mg tablet 20 mg PO TID PRN #90 tab 10/28/18 duloxetine 30 mg capsule,delayed release 30 mg PO BID 02/02/19 pregabalin 100 mg capsule 100 mg PO TID 03/25/19 Escitalopram Oxalate [Lexapro] 20 mg PO DAILY 12/22/19 Fenofibrate Nanocrystallized [Tricor] 48 mg PO DAILY 12/22/19 Montelukast [Singulair] 10 mg PO QHS 12/22/19 Pravastatin Sodium 20 mg PO DAILY 12/22/19 Topiramate [Topamax] 50 mg PO QHS 12/22/19 Lisinopril 40 mg PO DAILY 01/10/20 Omeprazole 1 tab PO DAILY 01/10/20 Aspirin E.C. [Ecotrin] 81 mg PO BID #30 tab 01/18/20 Doxycycline 100 mg PO BID 14 Days #28 cap 01/18/20 Oxycodone HCl/Acetaminophen [Percocet 5-325 mg Tablet] 1 - 2 ea PO Q6H PRN PRN 7 Days #42 tab 01/18/20
[2020-01-18 14:44] VITALS: BP 148/85; PULSE 92; RESP 16; TEMP 36.8; O2SAT 97
--- NOTE | 2020-01-18 15:00 | NURSING ---
sister ylois updated about dc to [facility] number given to
[2020-01-18 16:08] LABS: Creatine Kinase MB 0 % (0-3); Creatine Kinase MM 99 % (97-100); Macro II 0 % (Not Observed)
[2020-01-18 16:44] LABS: Creatine Kinase BB 0 % (0); Creatine Kinase,Total,Serum 159 U/L (32-182); Macro I 1 % (Not Observed)
== END 2020-01-18 16:22 | disposition skilled nursing facility (03) | DRG 313 ==
LOC: ED 19:02 → PCU 01-11 07:24
PROVIDERS: Internal Medicine; Nurse Practitioner Family; Physician Assistant; Podiatrist Foot & Ankle Surgery; Admitting Provider Hospitalist; Emergency Provider Emergency Medicine; PCP Internal Medicine; Visit Provider Internal Medicine
PROC: 0QSJ35Z Reposition Right Fibula with External Fixation Device, Percutaneous Approach (ICD-10-PCS; principal; 2020-01-11 12:15)
DX: S82.851A Displaced trimalleolar fracture of right lower leg, initial encounter for closed fracture (principal); S02.2XXA Fracture of nasal bones, initial encounter for closed fracture; S93.04XA Dislocation of right ankle joint, initial encounter; T79.6XXA Traumatic ischemia of muscle, initial encounter; R29.6 Repeated falls; N17.9 Acute kidney failure, unspecified; E86.0 Dehydration; G40.909 Epilepsy, unspecified, not intractable, without status epilepticus; J44.9 Chronic obstructive pulmonary disease, unspecified; J45.20 Mild intermittent asthma, uncomplicated; R44.3 Hallucinations, unspecified; R45.1 Restlessness and agitation; I10 Essential (primary) hypertension; G89.29 Other chronic pain; E78.5 Hyperlipidemia, unspecified; G62.9 Polyneuropathy, unspecified; K21.9 Gastro-esophageal reflux disease without esophagitis; F32.9 Major depressive disorder, single episode, unspecified; F41.9 Anxiety disorder, unspecified; F17.210 Nicotine dependence, cigarettes, uncomplicated; W01.10XA Fall on same level from slipping, tripping and stumbling with subsequent striking against unspecified object, initial encounter; Y93.9 Activity, unspecified; Y92.009 Unspecified place in unspecified non-institutional (private) residence as the place of occurrence of the external cause; Y99.9 Unspecified external cause status; Z79.82 Long term (current) use of aspirin; Z79.899 Other long term (current) drug therapy; Z78.0 Asymptomatic menopausal state; Z87.01 Personal history of pneumonia (recurrent); Z90.710 Acquired absence of both cervix and uterus
CPT/HCPCS: 36415; 70450; 71045; 72125; 73590; 73610; 73630; 73700; 76000; 80048; 80307; 82306; 82550; 82552; 82607; 83735; 85025; 85027; 85610; 87635; 93005; 93922; 94640; 94667; 94668; 97110; 97116; 97163; 97166; 97530; 97535; 99285; C1713; G2023; J7030; J7050; A4216; J2405; U0003

== ENCOUNTER 2020-02-16 08:40 | Day surgery (SDC) | payer MEDICAID, SELFPAY ==
[2020-01-11 10:28] VITALS: BMI 30.9
[2020-02-16] VITALS (15 sets, daily range): BP systolic 118–175; BP diastolic 64–102; PULSE 60–76; RESP 16–18; TEMP 36.3–37.3; O2SAT 91–100; BMI 32.2
[2020-02-16] MEDS: Lactated Ringers 1,000 ML 75 ML IV ×2 (10:08→18:47)
--- NOTE | 2020-02-16 13:58 | RAD_ITS ---
STUDY: X-RAY - RIGHT ANKLE REASON FOR EXAM: Female, 59 years old. Removal external fixation, ORIF trimalleolar fracture TECHNIQUE: 3 view(s) of the ankle. COMPARISON: Comparison is made with prior study dated 01/11/2020. FINDINGS: Intraoperative imaging provided for ORIF of the distal fibular fracture utilizing screw and sideplate fixation device. Screw fixation of the medial malleolar fracture. RAD/Ankle min 3 Views IMPRESSION: Intraoperative imaging provided for ORIF of the distal fibular fracture and medial malleolar fracture. Electronically Signed: Kody Lakhani, at 10:45 EDT , Service support ,
--- NOTE | 2020-02-16 16:30 | DCINST_ITS ---
Discharge Diet: - - Continue diet as [facility] Discharge Activity: May Not Drive, May Not Shower, Use Walker, Use Crutches Weight Bearing Status: No weight bearing Keep extremity elevated above heart level: Right Leg Additional Activity Instructions:: 1. Keep dressing to right leg clean, dry, intact. Do not get dressing wet. Do not change dressing. Dressing change will be performed at first postoperative visit. If get dressing wet, call office for further instruction. 2. Placed ice around the right knee 20 minutes on, 20 minutes off, every hour while you are awake for pain. 3. Elevate right foot above level of heart as often as possible until further instructed. 4. No walking, standing, placing weight on right foot. Use assistive devices for ambulation. 5. Begin taking doxycycline (antibiotic) tomorrow, February 17, 2020 as instructed. 6. Begin taking lovenox 40mg subcutaneous tomorrow, February 17, 2020 as instructed. 8. Take pain medication as needed. Pain medication can begin February 16, 2020. #9. Follow-up as previously scheduled in the office with Dr. Washington. Call your doctor if your incision/area has: Sudden Increased Bleeding Call your doctor if you observe: Fever of 101 or Higher, Shortness of breath, Chest pain, Increased palpitations (irregular heartbeat), Calf discomfort, Uncontrolled pain Cleanse incision/area with: Keep Dressing Clean & Dry Allergies/Adverse Reactions: Allergies Penicillins Allergy (Severe, Verified 02/14/20 08:25) vomiting aspirin Adverse Reaction (Verified 02/14/20 08:25) Upset Stomach HX OF ULCERS Medications to take at Discharge Albuterol Inhaler [Ventolin Hfa] 2 puff INHALATION Q4H PRN PRN 06/29/17 baclofen 20 mg tablet 20 mg PO TID PRN #90 tab 10/28/18 duloxetine 30 mg capsule,delayed release 30 mg PO BID 02/02/19 pregabalin 100 mg capsule 100 mg PO TID 03/25/19 Escitalopram Oxalate [Lexapro] 20 mg PO DAILY 12/22/19 Fenofibrate Nanocrystallized [Tricor] 48 mg PO DAILY 12/22/19 Montelukast [Singulair] 10 mg PO QHS 12/22/19 Pravastatin Sodium 20 mg PO QHS 12/22/19 Topiramate [Topamax] 50 mg PO QHS 12/22/19 Lisinopril 40 mg PO DAILY 01/10/20 Cholecalciferol (Vitamin D3) [Vitamin D3] 2,000 unit PO DAILY 02/14/20 Hydroxyzine Pamoate [Vistaril] 25 mg PO Q12H PRN 02/14/20 Magnesium Hydroxide [Milk Of Magnesia] 30 ml PO DAILY PRN PRN 02/14/20 Omeprazole [Prilosec] 20 mg PO DAILY 02/14/20 Oxycodone HCl/Acetaminophen [Percocet 5-325 mg Tablet] 1 - 2 ea PO Q4H PRN 02/14/20 Primary Care Physician: Marlen Lucia MD [Primary Care Provider] - Test Results: Test results from this visit will be discussed in further detail at your follow- up appointment, if applicable. Proposed Discharge Date: 02/16/20
--- NOTE | 2020-02-16 16:36 | OP.PCM_ITS ---
Problem List (1) Trimalleolar fracture of ankle, closed Status: Acute Qualifiers: Encounter type: subsequent encounter Laterality: right Fracture healing: with routine healing Qualified Code(s): S82.851D - Displaced trimalleolar fracture of right lower leg, subsequent encounter for closed fracture with routine healing Report of Operation Date of Procedure: 02/16/20 Pre-Operative Diagnosis: 1. Right ankle trimalleolar fracture. 2. Right ankle joint dislocation Post-Operative Diagnosis: Same as preoperative Surgery/Procedure Performed:: 1. Open reduction with internal fixation of right ankle trimalleolar fracture. 2. Open reduction with internal fixation of right syndesmosis injury. 3. Removal of external fixator right foot, ankle, leg. Description of Surgical Findings:: Consistent with diagnosis. Difficulty in reducing the fracture fragments due to the patient's osteoporotic bone. spray cementer: Johanna Neville Type of Anesthesia:: General/Regional - With a popliteal and saphenous block given to the right lower extremity. Anesthesiologist: Angelo Hamilton Special Medications: 1 gram of vancomycin given preoperatively Specimen's removed: None Drains: None Estimated Blood Loss (mL): 100mL Description of Procedure: Hemostasis: Pneumatic thigh tourniquet placed to level of the right thigh at 250 mmHg for 120 minutes Estimated blood loss is 100 mL Materials: #1. Arthrex tight rope. 2. Monroe 5 hole lateral distal fibula plate. 3. Nahum 3.5 x 12 mm locking screw x3. 4. Monroe 3.5 x 14 mm locking screw. 5. Monroe 3.5 x 16 mm locking screw x2. 6. Nahum 3.5 x 14 mm nonlocking screw. 7. Monroe 4.0 x 40 mm cannulated screw. 8. Size 2-0 Vicryl. 9. Size 3-0 Vicryl. 10. Size 3-0 nylon. Injectables: None Complications: Significant difficulty in reducing fracture fragments due to the patient's significant injury and osteoporotic bone. Condition: Stable Indications: Patient is a 59-year-old female who suffered a right ankle fracture on January 08. Patient was at home when the injury occurred. Patient does live alone and was unable to contact emergency medical services for over a 24-hour period. She then was brought to the emergency department on January 09 after she was able to contact them. I was then consulted and saw the patient. There was significant deformity of her right ankle, along with a medial ankle wound. Due to this, I placed the patient in an external fixator on January 10. Patient was subsequently discharged to the rehabilitation facility at the [facility]. Patient has been following up with me in the office for pin care along with care of the medial wound. Significant healing was noted at last visit on February 09. Due to the healing that was present, it was determined that removal of the external fixator with application of internal fixation would be in the patient's best interest. Patient was agreeable to proceed with the surgical intervention. Operative report: Before the patient was brought to the operating room, the risks, benefits, possible outcomes, possible complications of the procedure were discussed with the patient. The proposed surgical plan was removal of the external fixator, with a right ankle trimalleolar open reduction with internal fixation and fixation of the syndesmosis. The risks include but not limited to delayed or nonhealing wounds, delayed or nonhealing bone, DVT, infection, decreased function of limb, loss of limb, loss of life. I discussed with the patient that since she does smoke cigarettes, she has had a higher risk of postoperative complications. All the patient questions were answered to her satisfaction and all of her concerns were addressed. No guarantees were made as to the outcome of the procedure. Patient understood all aspects of the procedure. She was agreeable to the surgical intervention and consent was then signed by the patient. Before the patient was brought to the operating room, the anesthesiologist administered a popliteal and saphenous block to the right lower extremity. Patient was then brought to the operating room and placed on the operating table in supine position. After timeout, once general anesthesia was obtained and anesthesia took control of the airway, adequate padding was placed in all pressure points. Next, well-padded pneumatic thigh tourniquet was placed to the level of the right thigh. The right foot, ankle, leg were then scrubbed, prepped, draped in the usual sterile manner. At this time, the external fixator along with the associated half pins were removed in their entirety from the right lower extremity. Each of the half pin sites on the leg and foot were then irrigated with copious amounts of normal sterile saline. Next, a curette was used to remove any fibrous tissue contained within the pin sites. The surgical pin sites were then irrigated once again. The subcutaneous tissues of the half pin sites were reapproximated and coapted utilizing 3-0 Vicryl. The skin of the pin sites were then reapproximated coapted utilizing size 3-0 nylon in a horizontal mattress fashion. At this time, the right foot, ankle, leg were then re-scrubbed, reprepped, and redraped in the usual sterile fashion. Elevation of the right lower extremity was followed by exsanguination via Esmarch and inflation of the pneumatic thigh tourniquet to 250 mmHg. At this time, radiographic evaluation was used to determine the distal tip of the lateral malleolus, level of the fibular fracture, and lateral aspect of the distal one third of the fibular shaft. These were then marked on the patient. Next, the ankle joint line was then marked under radiograph, and the medial malleolus fracture was marked on the patient. Attention was then directed back to the lateral aspect of the right ankle in the area of the fibula. Next, #15 blade was used to perform a linear longitudinal incision starting in the lateral aspect of the distal one third of the fibular shaft extending distally to the distal tip of the lateral malleolus. This incision was deepened utilizing sharp and blunt dissection. Care was taken to retract all vital neural and vascular structures. All bleeders were cauterized and ligated as necessary. Next, a linear periosteal incision was made in line with the original skin incision. The periosteal and capsular structures then reflected anteriorly and posteriorly, thus exposing the fibula and the fracture at the operative site. At this time, it was noted the bone throughout the entirety of the fibula was soft and osteoporotic. Next, a curette along with a rongeur and osteotomes were used to remove the fibrous tissue contained within the fibular fracture. The surgical site was then irrigated with copious amounts of normal sterile saline. The fibula was then reduced and held via temporary fixation. Reduction of the fibula was difficult due to her soft bone and the level of the injury that was present. Once reduction was performed, radiograph evaluation was then performed. The fibula was noted to be out the length at this time. Attempts at placing interfragmentary screw were performed, but the bone was too soft and would not hold the interfragmentary screw. Due to this, it was determined that the fracture will be held with a lateral plate. The Nahum 5 hole lateral plate was placed over the lateral aspect of the fibula and held via temporary fixation. Positioning of this was determined via radiographic evaluation. Once adequate position was had, this was held via a mixture of nonlocking and locking screws. Of note during insertion of the screws was the adequate compression of the plate to the bone. Furthermore, no shifting any of the fragments occurred during insertion of the screws. Once her screws were fully inserted, all temporary fixation was then removed. Care was taken make sure to leave the hole of the fibula plate open for the syndesmosis repair. Radiograph evaluation was then performed. The plate was noted to hold the fibula in the reduced position. The fibula was noted to be out the length at this time and the lateral ankle joint mortise was noted to be intact. Attention was then directed to the medial malleolus of the right ankle. At this time, a K wire was placed percutaneously through the medial malleolus fracture to aid in the reduction and stabilization. Once this K wire was then inserted, radiograph evaluation was then performed. The K wire was noted to hold the medial malleolus in the corrected reduced position. At this time, this K wire was then drilled and a size 4.0 x 40 mm cannulated screw was placed over the K wire and inserted in standard AO fixation. Of note during insertion of the screw was adequate compression of the medial malleolus fracture. Furthermore, no shifting of the medial malleolus fracture occurred during insertion of the screw. Once the screw was fully inserted, temporary fixation was then removed from the medial malleolus. Radiograph evaluation was then performed. The medial ankle joint mortise was noted to be intact at this time. Due to the small nature of the fracture and the level of the osteoporotic bone, it was determined that 1 screw would be used. At this time, the syndesmosis was reduced with the foot held in a dorsiflexed position. This was held via the bone clamp. Next, the Arthrex tight rope was inserted in standard fashion from lateral to medial through the open hole of the fibula plate into the medial aspect of the tibia. This was then tightened down in standard fashion. Once this was tightened down, the bone clamp was then removed. Radiograph evaluation was then performed. An increase in the tibial fibular overlap was noted from preoperative assessment. Radiographic evaluation was performed once again. The fibula was noted to be out the length at this time and reduced from preoperative assessment. The tibia and fibula were noted to be reduced at this time at the level of the syndesmosis. The medial malleolus fracture was noted to be reduced from preoperative assessment. The talus was positioned underneath the tibia at this time. The ankle joint mortise was noted to be intact at this time. The lateral surgical site was then irrigated copious amounts normal sterile saline. The periosteal and capsular structures were then reapproximated coapted utilizing size 2-0 Vicryl and 3-0 Vicryl. The subcutaneous tissue was reapproximated coapted utilizing size 3-0 Vicryl. The skin was reapproximated coapted utilizing size 3-0 nylon in a simple interrupted and horizontal mattress fashion. Attention was then directed the medial aspect of the surgical site. The subcutaneous tissue of the medial malleolus surgical site was reapproximated and coapted utilizing size 3-0 Vicryl. The skin was reapproximated coapted utilizing size 3-0 nylon in a simple interrupted fashion. At this time, radiograph evaluation was then performed once again. The posterior malleolus fracture was noted to be less than 25% of the articulating surface and was noted to be nondisplaced. It was determined this time to not fixate the posterior malleolus fracture. The pneumatic thigh tourniquet was then released and a prompt hyperemic response noted to the entirety of the right lower extremity. Each surgical site was then dressed with Betadine soaked gauze, and a dry sterile dressing setting of 4 x 4 gauze, ABD pads, wrapped with Kerlix. The right foot and ankle were then wrapped with Ishmael bandage. Next, a stockinette was placed over the right lower extremity. Cast padding was wrapped from the metatarsal heads extending proximally to level just distal to the tibial tuberosity. A posterior splint was fashioned to the right lower extremity and was adhered to the right lower extremity utilizing Ishmael bandages. Neurovascular status was assessed at the end of the application and deemed intact to the right lower extremity. Patient tolerated the anesthesia and procedure well and was transported to the PACU with vital signs stable and neurovascular status intact to the right lower extremity. After period of postoperative monitoring, patient will be transferred back to her subacute nursing facility. She will have instructions for postoperative care and follow-up. The assistant branch operations manager, the nurse practitioner, was utilized at the entire procedure. She helped with patient positioning, holding of limb, holding retractors. She helped with exposure throughout. She helped with bandage application, and cast application. Without the assistant branch operations manager, surgical time would have been increased and surgical outcome could have been less optimal. - Complications Significant difficulty in reducing the ankle joint fracture due to her osteoporotic bone and the significant injury that was present. - Admit VTE Documentation VTE Present on Admission: No VTE Mechan Device Prophylaxis: SCD's VTE Pharm Prophylaxis ordered?: Yes
--- NOTE | 2020-02-16 17:28 | RAD_ITS ---
STUDY: X-RAY - RIGHT ANKLE REASON FOR EXAM: Female, 59 years old. Post op, s/p orif right ankle fracture TECHNIQUE: 3 view(s) of the ankle. COMPARISON: Comparison is made with prior study dated 01/11/2020. FINDINGS: There has been removal of the external fixation device that was previously attached to the distal tibial shaft and calcaneus. The patient is status post open reduction and internal fixation of the distal fibular fracture utilizing screw and sideplate fixation device. Screw fixation of the medial malleolar fracture.. Normal tibiotalar articulation and ankle mortise. RAD/Ankle min 3 Views IMPRESSION: Status post open reduction and internal fixation of the distal fibular fracture and medial malleolar fracture. There is good alignment. Electronically Signed: Kody Lakhani, at 10:47 EDT , Service support ,
[2020-02-16] MEDS: HYDROcodone Bitartrate/Apap 5/325 Tablet PO ×2 (18:56→19:32)
--- NOTE | 2020-02-16 19:25 | SUR.PHASEI ---
Attempted to call report to the Nurse caring for this patient. Nurse unavailable at the time to take report. Number given and asked to be called back.
--- NOTE | 2020-02-16 19:25 | SUR.PHASEI ---
Called to give report to the nurse at
--- NOTE | 2020-02-16 20:07 | SUR.PHASEII ---
Transport called and set up. ETA 90 minutes.
== END 2020-02-16 21:37 | disposition skilled nursing facility (03) ==
LOC: SDC 08:41 → AC 08:41
PROVIDERS: Anesthesiology; PCP Internal Medicine; Referring Provider Podiatrist Foot & Ankle Surgery; Visit Provider Podiatrist Foot & Ankle Surgery
DX: S82.851A Displaced trimalleolar fracture of right lower leg, initial encounter for closed fracture (principal); S93.04XA Dislocation of right ankle joint, initial encounter; X58.XXXA Exposure to other specified factors, initial encounter; Y93.9 Activity, unspecified; Y92.009 Unspecified place in unspecified non-institutional (private) residence as the place of occurrence of the external cause; Y99.9 Unspecified external cause status; Z11.59 Encounter for screening for other viral diseases; M19.90 Unspecified osteoarthritis, unspecified site; G40.909 Epilepsy, unspecified, not intractable, without status epilepticus; I10 Essential (primary) hypertension; E78.00 Pure hypercholesterolemia, unspecified; J45.909 Unspecified asthma, uncomplicated; I73.9 Peripheral vascular disease, unspecified; M81.0 Age-related osteoporosis without current pathological fracture; K21.9 Gastro-esophageal reflux disease without esophagitis; F32.9 Major depressive disorder, single episode, unspecified; F17.200 Nicotine dependence, unspecified, uncomplicated; Z78.0 Asymptomatic menopausal state
CPT/HCPCS: 01480; 20694; 27822; 27829; 64445; 64447; 76942; 73610; 76000; 87635; 94799; C1713; J7040; J7120; A4216; J2405; U0003

== ENCOUNTER 2020-05-21 12:27 | Observation (INO) | payer MEDICAID, SELFPAY ==
[2020-02-16 10:11] VITALS: BMI 32.2
[2020-05-21 12:28] VITALS: BP 157/101; PULSE 81; RESP 18; TEMP 36.9; O2SAT 95; BMI 35.5
--- NOTE | 2020-05-21 13:12 | EKG12_ITS ---
Test Reason : FALL Blood Pressure : / mmHG Vent. Rate : 081 BPM Atrial Rate : 081 BPM P-R Int : 184 ms QRS Dur : 086 ms QT Int : 414 ms P-R-T Axes : 043 007 062 degrees QTc Int : 480 ms Normal sinus rhythm Inferior infarct ,age undetermined Abnormal ECG Confirmed by FELA DUBOIS, ADILENE ([id number]), mapping editor TONYA BOLANOS ([id number]) on 05/23/2020 8:48:13 AM Referred By: ENEIDA Confirmed By:ADILENE CHAHAL MD
--- NOTE | 2020-05-21 13:13 | CT_ITS ---
STUDY: CT CERVICAL SPINE WITHOUT CONTRAST REASON FOR EXAM: Female, 59 years old. FALL, LETHARGIC RADIATION DOSAGE (If Supplied By Facility): CTDIvol = ( 30.61 ) mGy, DLP = ( 589.07 ) mGycm TECHNIQUE: High resolution transaxial imaging was performed without contrast material. Sagittal and coronal images were reconstructed. Individualized dose optimization techniques were used for this CT. COMPARISON: Comparison is made with prior study dated 01/10/2020. FINDINGS: Normal craniovertebral junction. Normal anterior atlantoaxial articulation. Normal odontoid process. There is straightening of the normal cervical lordosis. Normal vertebral bodies and posterior osseous elements. C2-3: Normal endplates. Normal disc height and morphology. Normal central canal and intervertebral neuroforamina. C3-4: Normal endplates. Normal disc height and morphology. Normal central canal and intervertebral neuroforamina. C4-5: Mild anterior spondylosis. C5-6: Mild anterior spondylosis. C6-7: Multiple anterior spondylosis. C7-T1: Normal endplates. Normal disc height and morphology. Normal central canal and intervertebral neuroforamina. Atherosclerotic calcification of the carotid bifurcations. CT/Spine Cervical without Contras IMPRESSION: Multilevel degenerative changes, as described above. Electronically Signed: Kody Lakhani, at 14:05 EST , Service support ,
--- NOTE | 2020-05-21 13:13 | CT_ITS ---
STUDY: CT BRAIN WITHOUT CONTRAST REASON FOR EXAM: Female, 59 years old. FALL, LETHARGIC RADIATION DOSAGE (If Supplied By Facility): CTDIvol = ( 60.81 ) mGy, DLP = ( 1089.89 ) mGycm TECHNIQUE: Transaxial CT imaging of the brain was performed without administration of intravenous contrast material. Individualized dose optimization techniques were used for this CT. COMPARISON: 01/10/2020 FINDINGS: Normal soft tissue structures. There is hyperostosis frontalis internus. Normal size ventricles and extra-axial spaces for the patient''s age. Normal white matter tracts of the cerebral hemispheres. Normal basal ganglia and thalami. Normal brainstem. Normal cerebellum. There is no intracranial hemorrhage. There are no findings of an acute ischemic infarction. Normal visualized paranasal sinuses. Old healed nasal fracture CT/Brain/Head without Contrast IMPRESSION: Age consistent changes, no acute findings Old healed nasal fracture Electronically Signed: Richard Gates MD at 14:07 EST , Service support ,
--- NOTE | 2020-05-21 13:14 | ED.DCSUM_ITS ---
History of Present Illness Chief Complaint: Fall Informant: Patient Narrative: Patient is a 59-year-old female with a past medical history of seizure disorder who presents to the ED after a fall last night. She states she did strike her head. She states that she tripped and did not have a seizure. Is not sure why she did not come in last night as opposed to today. She does seem mildly confused. Headache or vision changes. No extremity injuries. No chest pain or shortness of breath. No abdominal pain. No back pain or neck pain. States that she has had some burning with urination over the past week but otherwise denies any other symptoms. No fevers or chills. No cough, cold, congestion. No nausea/vomiting or diarrhea. No rashes. She denies being on any blood thinning medications. Past Medical History - Allergies and Home Meds Allergies/Adverse Reactions: Allergies Penicillins Adverse Reaction (Severe, Verified 05/21/20 16:22) vomiting aspirin Adverse Reaction (Verified 05/21/20 12:35) Upset Stomach HX OF ULCERS Prior records reviewed: Yes Surgical History: appendectomy, hysterectomy, - Smoking Status: Current every day smoker - Family History Maternal Family History: Family History (Last Reviewed 05/21/20 @ 15:[address] Carlitos Velázquez DO) Mother Breast cancer Hypertension Hyperlipemia Cancer ulcers Father Diabetes Myocardial infarction, Onset Age: 67 Hypertension Depression Sister Depression Hyperlipemia Family History: Reports: Hypertension Paternal Family History: Family History (Last Reviewed 05/21/20 @ 15:[address] Carlitos Velázquez DO) Mother Breast cancer Hypertension Hyperlipemia Cancer ulcers Father Diabetes Myocardial infarction, Onset Age: 67 Hypertension Depression Sister Depression Hyperlipemia Family History: Reports: No pertinent history Review of Systems All systems negative except as indicated General: Denies: Chills, Fever, Sweats Eyes: Denies: Visual changes - bilaterally, Diplopia ENT: Denies: Rhinorrhea, Sore throat Cardiovascular: Denies: Chest pain, Palpitations Respiratory: Denies: Dyspnea, Cough, Dyspnea on exertion Gastrointestinal: Denies: Abdominal pain, Nausea, Vomiting, Diarrhea, Melena, Hematochezia Genitourinary: Reports: Dysuria. Denies: Hematuria, Frequency Musculoskeletal: Denies: Back pain, Extremity Pain Skin: Denies: Rash, Wounds Neurological: Denies: Headache, Weakness, Numbness Physical Exam Vital Signs/Narrative: Vital Signs Temp Pulse Resp BP Pulse Ox 05/21/20 12:28 98.4 F 81 18 157/101 H 95 Inital Vital Signs reviewed: Yes General: Well nourished, Well developed, No Acute Distress Head: Normocephalic, Trauma - Ecchymosis surrounding the left forehead. No raccoon sign. No buchanan sign. Eyes: Perrl, EOMI ENT: Moist mucous membranes, No rhinorrhea Neck: Supple, Nontender Cardiovascular: Regular rate, Regular rhythm, No murmurs Respiratory: No distress, CTA bilaterally, Chest nontender Abdomen: Soft, Nontender, Nondistended, Normal bowel sounds Back: Nontender, Normal Inspection. Negative for: Spinal tenderness Extremities: Nontender, No edema. Negative for: Calf Tenderness Skin: Normal color, No rash Neurological: Alert, Cranial nerves II-XII grossly intact, Normal Strength, Normal Sensation, - - Oriented to person and place but not time. Diagnostic/Tx/Re-eval - EKG Initial EKG Interpretation: - - Rate of 81 bpm and normal sinus rhythm. Normal intervals. Normal axis. No ST elevations or depressions appreciated. No significant T wave abnormalities. - Medical Decision Making Patient presents to the emergency department after a fall last night. She has bruising on her forehead. Patient does seem mildly altered although I do not know her baseline. Does have a history of seizure disorder but she denies having a seizure. Been having dysuria so we will check basic lab work along with urinalysis. Will perform CT scan of the head and cervical spine. Patient's imaging did not reveal any acute traumatic findings. Work-up also did not show any significant abnormality. We did attempt to ambulate the patient but she was unable to get up out of the bed. Apparently she has been having multiple falls per day. Will bring her into the hospital for further evaluation and management. She will likely need placement for acute rehab. Patient is agreeable with this plan. ED Disposition - Plan for ED Patient: Disposition: Acute Care Hospital [facility] Diagnosis: Generalized weakness, Frequent falls, Closed head injury
[2020-05-21 13:39] LABS: Absolute Lymphocyte Count 1.12 X10^3/uL (0.83-4.51); Absolute Neutrophil Count 6.7 X10^3/uL (2.0-7.7); Basophil# 0.07 X10^3/uL; Basophil% 0.8 % (0-1); Eosinophil# 0.02 X10^3/uL; Eosinophils% 0.2 % (0-5); Hematocrit 42.1 % (37-47); Hemoglobin 13.4 g/dL (12.0-15.0); Lymphocyte # 1.12 X10^3/ul (4.0); Lymphocyte % 13.1 % (19-41); Mean Corp Hgb Conc 31.8 g/dL (32-36); Mean Corpuscular Hgb 28.8 pg (27.0-32.0); Mean Corpuscular Volume 90.5 fL (81-99); Mean Platelet Vol. 10.8 fl (6.2-12.0); Monocyte# 0.61 X10^3/uL; Monocyte% 7.1 % (0-10); NRBC Flagged by Analyzer 0 % (0-5); Neutrophil # 6.73 X10^3/uL (2.7-7.7); Neutrophil % 78.6 % (47-70); Platelet Count 333 K/mm3 (150-450); RBC Distribution Width CV 13.5 % (11.6-14.6); RBC Distribution Width SD 45.1 fl (35.1-43.9); Red Blood Count 4.65 M/mm3 (4.2-5.4); White Blood Count 8.6 K/mm3 (4.4-11.0)
[2020-05-21 13:50] LABS: Anion Gap 6 (5-15); BUN 14 mg/dL (7-18); BUN/Creat Ratio 19.3 RATIO (10-20); Chloride 106 mmol/L (98-107); Creatinine, Serum 0.72 mg/dL (0.55-1.02); EST Glomerular Filtration Rate 87 mL/min (>60); Est Glom Filt Rate - Afr Amer 106 mL/min (>60); Estimated Creatinine Clearance 72.65 ml/min; Glucose 103 mg/dL (74-106); Potassium 3.6 mmol/L (3.5-5.1); Sodium Level 142 mmol/L (136-145)
[2020-05-21 13:54] LABS: CPK Total, Creatine Kinase 112 U/L (26-192)
[2020-05-21 14:03] VITALS: BP 171/97; PULSE 87; RESP 18; TEMP 36.7; O2SAT 97
[2020-05-21 14:05] LABS: Bacteria 0 SEEN /hpf (None Seen); Mucous, Urine 0 SEEN /hpf (<or=2+); Red Blood Cells-Urine 0 SEEN /hpf (0-5); White Blood Cells 0 SEEN /hpf (0-5)
[2020-05-21 14:16] LABS: Color, Urine Yellow (Yellow); Glucose, Dipstick Normal (Normal); Ketone-Dipstick Negative (Negative); Leukocyte Esterase-Dipstick Negative /ul (Negative); Nitrite-Dipstick Negative (Negative); Occult Blood-Urine Negative /ul (Negative); Protein-Dipstick Negative (Negative); Urine Bilirubin Dipstick Negative (Negative); Urine Clarity Sl. Cloudy (Clear); Urine Urobilinogen Normal (Normal)
[2020-05-21 14:22] LABS: Squamous Epithelial Cells - UA 0-5 SEEN /hpf (5-10)
[2020-05-21 15:00] VITALS: BP 177/88; PULSE 81; RESP 16; TEMP 36.6; O2SAT 96
--- NOTE | 2020-05-21 15:11 | PCM.HP.STD ---
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 (4) Degeneration of intervertebral disc of lumbosacral region Status: Chronic (5) Radiculopathy of lumbosacral region Status: Chronic (6) Spondylosis of lumbosacral region without myelopathy or radiculopathy Status: Chronic (7) Lumbar facet arthropathy Status: Chronic (8) Bimalleolar fracture of right ankle Status: Resolved (9) Bimalleolar fracture Status: Inactive (10) Bimalleolar fracture of right ankle Status: Resolved (11) Trimalleolar fracture of ankle, closed Status: Resolved Qualifiers: Encounter type: subsequent encounter Laterality: right Fracture healing: with routine healing Qualified Code(s): S82.851D - Displaced trimalleolar fracture of right lower leg, subsequent encounter for closed fracture with routine healing (12) Dislocation of right ankle joint, initial encounter Status: Resolved (13) Mouth sores Status: Inactive (14) Headache Status: Chronic (15) Rosacea Status: Chronic (16) Chronic sinusitis Status: Chronic (17) URI (upper respiratory infection) Status: Inactive (18) Osteopenia Status: Chronic (19) Smoking greater than 40 pack years Status: Chronic (20) Congestion of nasal sinus Status: Chronic (21) Hypersomnolence Status: Chronic (22) Hyponatremia Status: Inactive (23) Fatigue Status: Chronic (24) Neuropathy Status: Chronic (25) Vitamin D deficiency Status: Chronic (26) History of seizures Status: Chronic (27) History of pneumonia Status: Inactive (28) Asthma Status: Chronic (29) Seasonal allergies Status: Chronic (30) Femoral acetabular impingement Status: Suspected (31) Hypokalemia Status: Inactive (32) Community acquired pneumonia Status: Inactive (33) Hyperlipidemia Status: Chronic (34) Seizure disorder Status: Chronic (35) Right hip pain Status: Chronic (36) Hypertension Status: Chronic (37) Chronic back pain Status: Chronic (38) Drug overdose Status: Ruled-out (39) Unresponsiveness Status: Inactive (40) Acute respiratory failure Status: Inactive (41) Seizures Status: Chronic History of Present Illness Date of Admission: 05/21/20 Chief Complaint: fall The patient is a 59 year old F who is a poor historian presents with a fall. Fall occurred last night. Patient did not seek attention until today. History is obtained through emergency room physician given patient being a poor historian. Patient had fallen, hit her head. Was confused but did undergo a head CT as well as a CAT scan of her neck that were unremarkable. The time to get the patient up and she was unable to stand up on her own so decision was made to bring patient in for further evaluation for possible placement upon discharge. [] Past Medical History Past Medical History (Chronic Problems): Chronic Problems (Last Reviewed 01/10/20 @ 21:[address] 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) Degeneration of intervertebral disc of lumbosacral region (Chronic) Radiculopathy of lumbosacral region (Chronic) Spondylosis of lumbosacral region without myelopathy or radiculopathy (Chronic) Lumbar facet arthropathy (Chronic) Headache (Chronic) Rosacea (Chronic) Chronic sinusitis (Chronic) Osteopenia (Chronic) Smoking greater than 40 pack years (Chronic) Congestion of nasal sinus (Chronic) Hypersomnolence (Chronic) Fatigue (Chronic) Neuropathy (Chronic) Vitamin D deficiency (Chronic) History of seizures (Chronic) Asthma (Chronic) Seasonal allergies (Chronic) Hyperlipidemia (Chronic) Seizure disorder (Chronic) Right hip pain (Chronic) Hypertension (Chronic) Chronic back pain (Chronic) Seizures (Chronic) Medical History: Medical History (Last Reviewed 05/21/20 @ 15:[address] Carlitos Velázquez, DO) Neuropathy (Chronic) G62.9 Vitamin D deficiency (Chronic) E55.9 History of seizures (Chronic) Z87.898 History of pneumonia (Inactive) Z87.01 Asthma (Chronic) J45.909 Seasonal allergies (Chronic) J30.2 Allergies Penicillins Allergy (Severe, Verified 05/21/20 12:35) vomiting aspirin Adverse Reaction (Verified 05/21/20 12:35) Upset Stomach HX OF ULCERS Home Medications: Ambulatory Orders Medication Instructions Recorded Albuterol Inhaler [Ventolin Hfa] 2 puff INHALATION Q4H PRN PRN 06/29/17 baclofen 20 mg tablet 20 mg PO TID PRN #90 tab 10/28/18 duloxetine 30 mg capsule,delayed 30 mg PO BID 02/02/19 release pregabalin 100 mg capsule 100 mg PO TID 03/25/19 Escitalopram Oxalate [Lexapro] 20 mg PO DAILY 12/22/19 Fenofibrate Nanocrystallized 48 mg PO DAILY 12/22/19 [Tricor] Montelukast [Singulair] 10 mg PO QHS 12/22/19 Pravastatin Sodium 20 mg PO QHS 12/22/19 Topiramate [Topamax] 50 mg PO QHS 12/22/19 Lisinopril 40 mg PO DAILY 01/10/20 Cholecalciferol (Vitamin D3) 2,000 unit PO DAILY 02/14/20 [Vitamin D3] Hydroxyzine Pamoate [Vistaril] 25 mg PO Q12H PRN 02/14/20 Magnesium Hydroxide [Milk Of 30 ml PO DAILY PRN PRN 02/14/20 Magnesia] Omeprazole [Prilosec] 20 mg PO DAILY 02/14/20 Oxycodone HCl/Acetaminophen 1 - 2 ea PO Q4H PRN 02/14/20 [Percocet 5-325 mg Tablet] Surgical History: Surgical History (Last Reviewed 05/21/20 @ 15:[address] 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 Carlitos Velázquez DO) Mother Breast cancer Hypertension Hyperlipemia Cancer ulcers Father Diabetes Myocardial infarction, Onset Age: 67 Hypertension Depression Sister Depression Hyperlipemia History Items: Hypertension Paternal Family History: Family History (Last Reviewed 05/21/20 @ 15:[address] Carlitos Velázquez DO) Mother Breast cancer Hypertension Hyperlipemia Cancer ulcers Father Diabetes Myocardial infarction, Onset Age: 67 Hypertension Depression Sister Depression Hyperlipemia History Items: No pertinent history Review of Systems Unable to obtain accurate/complete ROS d/t: Given patient's current confusion. VTE Information - Inpt Only VTE Present on Admission: No VTE Mechan Device Prophylaxis: None VTE Pharm Prophylaxis ordered?: No Reason prophylaxis not ordered:: Treatment Not Indicated - Physical Exam Vitals/I&O's: Vital Signs Temp Pulse Resp BP Pulse Ox 36.7 C 87 18 171/97 H 97 05/21/20 14:03 05/21/20 14:03 05/21/20 14:03 05/21/20 14:03 05/21/20 14:03 Oxygen Delivery Method Room Air Weight: 93.9 kg Body Mass Index (BMI) 35.5 General: - - Alert to place and self. Date is June 29, 1968. HEENT: Atraumatic, EOMI Oral: Moist Mucosa, No Gingival or Mucosal Lesions/ Ulcerations Neck: No Nodes, Thyroid Normal Size and Texture Lungs: Clear to auscultation, Normal air movement, No rhonchi, No wheeze, No rales Cardiovascular: Regular rate, Regular Rhythm, Normal S1, Normal S2, No murmurs Abdomen: Bowel Sounds Present, Soft, Non Tender, Non-Distended, No Hepato-splenomegaly Extremities: No edema, No Calf Tenderness Skin: No rashes, No breakdown Musculoskeletal: No Tenderness to Palpation of Joints or Extremities, No Muscle Wasting Neurological: Cranial nerves II-XII grossly intact Psych/Mental Status: Appropriate, Flat Affect Laboratory Results 05/21/20 13:00: Sodium 142, Potassium 3.6, Chloride 106, Carbon Dioxide 30.0, Anion Gap 6, BUN 14, Creatinine 0.72, Estim Creat Clear Calc 72.65, Est GFR (MDRD) Af Amer 106, Est GFR (MDRD) Non-Af 87, BUN/Creatinine Ratio 19.3, Glucose 103, Calcium 10.0, Troponin I < 0.015 05/21/20 13:00: WBC 8.6, RBC 4.65, Hgb 13.4, Hct 42.1, MCV 90.5, MCH 28.8, MCHC 31.8 L, RDW Std Deviation 45.1 H, RDW Coeff of Dyana 13.5, Plt Count 333, MPV 10.8, Immature Gran % (Auto) 0.200, Neut % (Auto) 78.6 H, Lymph % (Auto) 13.1 L, Cowley % (Auto) 7.1, Eos % (Auto) 0.2, Baso % (Auto) 0.8, Absolute Neuts (auto) 6.7, Absolute Lymphs (auto) 1.12, Nucleated RBC % 0 05/21/20 13:00: Total Creatine Kinase 112 05/21/20 14:00: Urine Color Yellow, Urine Clarity Sl. Cloudy, Urine pH 8.0, Ur Specific [place] 1.010, Urine Protein Negative, Urine Glucose (UA) Normal, Urine Ketones Negative, Urine Occult Blood Negative, Urine Nitrite Negative, Urine Bilirubin Negative, Urine Urobilinogen Normal, Ur Leukocyte Esterase Negative, Urine RBC 0 SEEN, Urine WBC 0 SEEN, Ur Squamous Epith Cells 0-5 SEEN, Urine Bacteria 0 SEEN, Urine Mucus 0 SEEN Clinical Impression(s) from Imaging Studies Brain CT 05/21/20 13:13 IMPRESSION: Age consistent changes, no acute findings Old healed nasal fracture Electronically Signed: Richard Gates MD at 14:07 EST , Service support , Cervical Spine CT 05/21/20 13:13 IMPRESSION: Multilevel degenerative changes, as described above. Electronically Signed: Kody Lakhani at 14:05 EST , Service support , EKG NSR Assessment/Plan All Active Problems (Last Reviewed 01/10/20 @ 21:[address] Quang Mcfarlane MD) Failure to thrive (Acute) Toxic encephalopathy (Acute) Bimalleolar fracture of right ankle (Resolved) Bimalleolar fracture of right ankle (Resolved) Trimalleolar fracture of ankle, closed (Resolved) Dislocation of right ankle joint, initial encounter (Resolved) Drug overdose (Ruled-out) Morbid obesity (Resolved) Pericardial effusion (Resolved) 1. Failure to thrive: Patient had mechanical fall yesterday. I am concerned for polypharmacy, which was my concern when I had seen the patient in 2016. Patient on numerous medications that could exacerbate this. We will scale down her medications. It appears reviewing the patient's OARRS, that she has on buprenorphine as well as pregabalin. Peers at the buprenorphine is patch. Would not discontinue that but will also be holding some of her other medications, including the pregabalin amongst others. We will have her see physical Occupational Therapy and anticipate patient acquiring usage of a halfway facility upon discharge. Given her falls we will check a 25-hydroxy vitamin D level. 2. Encephalopathy, presumed toxic: Likely attributed to the patient's polypharmacy. Please see above for details. We will hold hydroxyzine, pregabalin, duloxetine. Patient on buprenorphine patch. Will hold until patient can be more alert and then resume. Would need to be careful to avoid precipitating acute withdrawal. 3. Chronic pain: Complicates her overall picture. Unclear if patient is on duloxetine for pain or not but that will be held but also be going to pregabalin for the encephalopathy and buprenorphine until the patient can be more alert. Patient to continue to follow-up with pain management as outpatient. There should be noted that the patient's buprenorphine patch was increased from 10 to 15 mcg/h on May 16. 4. VTE prophylaxis: Not indicated given the patient's low risk status and that she is observation at this time. 5. Advanced directives: Could not address as patient is confused at this time. OBSV E&M: [id number] Initial observation care L3
[2020-05-21 15:57] VITALS: BMI 31.9
[2020-05-21 16:05] VITALS: BP 161/64; PULSE 81; RESP 18; TEMP 36.9; O2SAT 97
--- NOTE | 2020-05-21 16:38 | NURSING ---
spoke with lab- states they have enough urine to run tox screen off of it as per order.
[2020-05-21 16:42] LABS: Amphetamine Urine VISTA NEGATIVE (<1000 ng/mL); Barbiturate Urine VISTA NEGATIVE (< 200 ng/mL); Benzodiazepine Urine VISTA NEGATIVE (< 200 ng/mL); Cocaine Urine VISTA NEGATIVE (< 300 ng/mL); Ecstacy Urine VISTA NEGATIVE (< 500 ng/mL); Methadone Urine VISTA NEGATIVE (< 300 ng/mL); PCP Urine VISTA NEGATIVE (< 25 ng/mL); THC Urine VISTA NEGATIVE (< 50 ng/mL); Vista UDS pH Range 7
[2020-05-21 16:46] LABS: Vitamin D,25 Hydroxy 23.3 ng/mL
--- NOTE | 2020-05-21 17:18 | NURSING ---
pt with bupenorphine patch on her left arm- states she applied it yesterday
[2020-05-21 21:16] VITALS: BP 158/90; PULSE 83; RESP 18; TEMP 36.6; O2SAT 95
[2020-05-21] MEDS: Pravastatin 20 MG Tablet PO (21:21)
[2020-05-21] MEDS: Montelukast 10 MG Tablet PO (21:21)
[2020-05-21] MEDS: 0.9% Saline Lock 10 ML Syringe IV (21:21)
[2020-05-21] MEDS: Topiramate 50 MG Tablet PO (21:21)
[2020-05-22 02:55] VITALS: BP 162/84; PULSE 82; RESP 18; TEMP 36.8; O2SAT 94
[2020-05-22 08:55] VITALS: BP 154/81; PULSE 81; RESP 18; TEMP 36.9; O2SAT 98
[2020-05-22] MEDS: Lisinopril 40 MG Tablet PO (09:19)
[2020-05-22] MEDS: Fenofibrate 48 MG Tablet PO (09:19)
[2020-05-22] MEDS: Pantoprazole Sodium 20 MG Tablet PO (09:20)
--- NOTE | 2020-05-22 10:15 | CASEMGMT ---
RN CM Face to Face with patient for initial transition planning/care coordination assessment. RN CM introduced self and role at [facility]. Patient lying in bed, alert and oriented. Patient willing to participate in assessment and is able to answer all questions appropriately. Care providers, pharmacy, and demographics verified. Patient wishes to discharge home, will monitor how patient progresses with therapy. Patient states she has no further needs or concerns at this time. CM to follow for discharge planning needs that may arise. PCP: Khari Specialists: Felix residence manager; hernan Juárez Preferred Pharmacy: [facility] Insurance: [employer] Prescription Benefit: yes Living Will/HPOA: none LNOK: sister Living Arrangements: Patient lives alone in a 3rd floor aparatment. Patient states she is independent at home but has been falling. Transportation: self DME/HHC: Patient state she has shower chair, raised toilet, cane, walker, grab bars, and medical alert. [facility]. Patient states she has previously had HHC. Disposition Plan: TBD by progress with therapy HHC vs SNF. Krysta TYSONN, RN, CM
--- NOTE | 2020-05-22 13:50 | CASEMGMT ---
Social Work Note SW reviewed PT/OT. PT walked 2ft. SW in to speak with pt. SW introduced self and role at [facility]. Pt is alert and orientated x2, pt able to state name, birthday, missed the date by one day. Pt stated it was Thursday but thought today's date was 05/23/2020 and . SW spoke with pt regarding discharge plans. Pt agreeable to referral being made to [facility]. SW explained referral process and pre-cert process. Pt states understanding. SW provided pt with list of SNF that accept pt's insurance. MYAH then updated by loan secretary that pt stated first choice for SNF is [facility] and second choice is [facility]. Pt states she does not want [facility]. MYAH placed a call to Rupal at [facility] and provided referral. SW faxed referral. SW updated Charge Nurse that COVID will be needed for SNF. Plan: [facility] pending acceptance and pre-cert Krysta Ramirez DRAGLINE ENGINEER, NEURO PSYCH SALES SPECIALIST
--- NOTE | 2020-05-22 15:47 | PN_ITS ---
Patient Problems: Active and Suspected Problems (Last Reviewed 05/21/20 @ 15:[address] Carlitos Velázquez, DO) Failure to thrive (Acute) Toxic encephalopathy (Acute) Generalized weakness (Acute) Frequent falls (Acute) Closed head injury (Acute) Femoral acetabular impingement (Suspected) Subjective: Patient was seen and examined today, she has a very flat affect, she did not do well with physical therapy today on only walked a couple of steps. Patient states that she would not be against going to an extended care facility for short-term rehab services, she has been at [facility] recently. - Physical Exam Vitals/I&O's: Vital Signs Temp Pulse Resp BP Pulse Ox 98.5 F 81 18 154/81 H 98 05/22/20 08:55 05/22/20 08:55 05/22/20 08:55 05/22/20 08:55 05/22/20 08:55 Oxygen Delivery Method Room Air Weight: 89.8 kg Body Mass Index (BMI) 31.9 Intake and Output for Last 24 Hours 05/20/20 05/21/20 05/22/20 23:59 23:59 23:59 Intake Total 1300 / 1300 Output Total 900 / 900 1875 / 1875 Balance -900 / -900 -575 / -575 General: Alert, Oriented x3, Cooperative, No apparent distress, Well developed, Well nourished HEENT: Atraumatic, PERRLA, EOMI, Normocephalic Oral: Moist Mucosa Neck: Supple, No JVD, Trachea Midline, Thyroid Normal Size and Texture Lungs: Clear to auscultation, Normal air movement, No rhonchi, No wheeze, No rales Cardiovascular: Regular rate, Regular Rhythm, Normal S1, Normal S2, No murmurs, PMI Normal, No rub noted, No Gallop Abdomen: Bowel Sounds Present, Soft, Non Tender, Non-Distended, No hernias noted Extremities: No clubbing, No cyanosis, No edema, Capillary Refill Less than 3 Seconds Skin: No rashes, No breakdown Musculoskeletal: No Tenderness to Palpation of Joints or Extremities Neurological: Cranial nerves II-XII grossly intact, Neuro grossly intact, Sensory exam intact to light touch and pain, Coordination normal Psych/Mental Status: Appropriate, Flat Affect, Alert and oriented to time, place, person, mood and affect Microbiology Past 72 Hours 05/21/20 14:00 Urine, Catheterized Urine Culture - Preliminary Culture exhibits no growth. Laboratory Results 05/21/20 13:00: Vitamin D 25-Hydroxy 23.3 05/21/20 14:00: Urine Opiates Screen NEGATIVE, Urine Methadone Screen NEGATIVE, Ur Barbiturates Screen NEGATIVE, Ur Phencyclidine Scrn NEGATIVE, Ur Amphetamines Screen NEGATIVE, U Methamphetamin-MDMA NEGATIVE, U Benzodiazepines Scrn NEGATIVE, Urine Cocaine Screen NEGATIVE, U Cannabinoids Screen NEGATIVE, Ur Drug Screen Comment Current Medications Acetaminophen (Acetaminophen 325 Mg Tablet) 650 mg PO Q6H PRN PRN PRN Reason: Pain Score 1-10/Temp > 100.7 F Albuterol Sulfate (Albuterol 2.5 Mg/3 Ml Vial.Neb.) 2.5 mg INHALATION Q4H PRN PRN Reason: WHEEZING AND/OR SOB Cholecalciferol (Cholecalciferol (Vit D3) 1,000 Unit (25mcg)) 2,000 unit PO DAILY [facility] Last Admin: 05/22/20 09:19 Dose: 2,000 unit Documented by: Duloxetine HCl (Duloxetine Hcl 60 Mg Capsule) 60 mg PO BID [facility] Fenofibrate (F[facility]ofibrate 48 Mg Tablet) [facility] Last Admin: 05/22/20 09:19 Dose: 48 mg Documented by: Lisinopril (Lisinopril 40 Mg Tablet) 40 mg PO DAILY [facility] Last Admin: 05/22/20 09:19 Dose: 40 mg Documented by: Magnesium Hydroxide (Magnesium Hydroxide 30 Ml Udc) 30 ml PO DAILY PRN PRN PRN Reason: Constipation Montelukast Sodium (Montelukast 10 Mg Tablet) 10 mg PO QHS [facility] Last Admin: 05/21/20 21:21 Dose: 10 mg Documented by: Pantoprazole Sodium (Pantoprazole Sodium 20 Mg Tablet) 20 mg PO DAILY [facility] Last Admin: 05/22/20 09:20 Dose: 20 mg Documented by: Pravastatin Sodium (Pravastatin 20 Mg Tablet) 20 mg PO QHS [facility] Last Admin: 05/21/20 21:21 Dose: 20 mg Documented by: Sodium Chloride (0.9% Saline Lock 10 Ml Syringe) 10 - 40 ml IV UD PRN PRN Reason: SALINE FLUSH Last Admin: 11/09/20 21:21 Dose: 10 ml Documented by: Topiramate (Topiramate 50 Mg Tablet) 50 mg PO QHS [facility] Last Admin: 05/21/20 21:21 Dose: 50 mg Documented by: Medical Necessity - Tobacco Use Smoking Status: Current every day smoker Assessment/Plan All Active Problems (Last Reviewed 05/21/20 @ 15:[address] Carlitos Velázquez, DO) Failure to thrive (Acute) Toxic encephalopathy (Acute) Generalized weakness (Acute) Frequent falls (Acute) Closed head injury (Acute) Bimalleolar fracture of right ankle (Resolved) Bimalleolar fracture of right ankle (Resolved) Trimalleolar fracture of ankle, closed (Resolved) Dislocation of right ankle joint, initial encounter (Resolved) Drug overdose (Ruled-out) Morbid obesity (Resolved) Pericardial effusion (Resolved) #1 generalized debility-exact etiology is unclear at this time, continue PT and OT, patient may need temporary placement in a assisted facility #2 polypharmacy-patient's meds have been trimmed #3 chronic back pain/ osteoarthritic pain #4 toxic encephalopathy-this is probably secondary to polypharmacy, patient's meds were reviewed and adjusted when she was placed in observation status yesterday #5 essential hypertension-continue to monitor blood pressure OBSV E&M: [id number] Subsequent observation care L3
--- NOTE | 2020-05-22 16:36 | CASEMGMT ---
Social Work Note MYAH received call from Rupal at [facility] stating she is able to accept pt and will submit for pre-cert. Rupal asked about pt's bed alarm. MYAH explained that pt was on bed rest and per aide, pt has not been getting out of bed today and has not alerted the bed alarm. Rupal states understanding, will submit for pre-cert. SW in to speak with pt. MYAH updated pt on acceptance to [facility] pending pre-cert. Pt states understanding. Plan: [facility] pending pre-cert Krysta Ramirez ANALYSIS SPECIALIST, WEED SPRAYER
[2020-05-22 19:38] VITALS: BP 152/87; PULSE 95; RESP 18; TEMP 36.6; O2SAT 94
[2020-05-22] MEDS: Pravastatin 20 MG Tablet PO (22:10)
[2020-05-22] MEDS: Topiramate 50 MG Tablet PO (22:10)
[2020-05-22] MEDS: DULoxetine Hcl 60 MG Capsule PO (22:10)
[2020-05-23] MEDS: Acetaminophen 325 MG Tablet 650 MG PO ×2 (02:04→08:55)
[2020-05-23] MEDS: 0.9% Saline Lock 10 ML Syringe IV (02:05)
[2020-05-23 02:09] VITALS: BP 152/84; PULSE 80; RESP 18; TEMP 36.8; O2SAT 95
[2020-05-23] MEDS: DULoxetine Hcl 60 MG Capsule PO (08:53)
[2020-05-23] MEDS: Pantoprazole Sodium 20 MG Tablet PO (08:53)
[2020-05-23] MEDS: Fenofibrate 48 MG Tablet PO (08:53)
[2020-05-23] MEDS: Lisinopril 40 MG Tablet PO (08:54)
[2020-05-23 09:00] VITALS: BP 156/63; PULSE 64; RESP 18; TEMP 37.2; O2SAT 94
--- NOTE | 2020-05-23 11:08 | CASEMGMT ---
Addendum entered by Krysta Ramirez 05/23/20 14:15: SW received call from Rupal at [facility] stating pre-cert has been obtained and pt is able to discharge today. SW spoke with pt, updated her on approval to [facility]. Pt states understanding, agreeable to [facility]. Pt states that she was diagnosed with seizure disorder in 2013 and pt is on social security. SW updated physician. SW completed PAS/RR in HENS. SW to fax discharge paperwork once completed. Plan: [facility] today Original Note: Social Work Note SW updated that pt is now stating she wants to return home at discharge. SW in to speak with pt. SW informed pt that [facility] is able to accept pt pending insurance. Pt agreeable now to going to [facility] two weeks. SW explained that pt would be going for short term rehabilitation. Pt states understanding, asked that this worker call insurance to get approval today. SW informed pt that this worker can call Rupal at [facility] and have push on her end to see if insurance can get back to her today. Pt states she would like [facility] to do that. SW placed a call to Rupal at [facility] and left message asking to reach out to pt's insurance (per pt's request) in regards to pt's pre-cert. Plan: [facility] pending pre-cert Krysta Ramirez COST REPORT CLERK, SIMULATION DEVELOPER
[2020-05-23 13:16] LABS: Probe Check PASS; Specimen Processing Control PASS
[2020-05-23 15:08] VITALS: BP 147/88; PULSE 72; RESP 18; TEMP 36.7; O2SAT 95
--- NOTE | 2020-05-23 15:27 | PCM.TXEXTCAR ---
- Diet 05/21/20 17:24 Diet: Regular - General Type of Dietary Supplement:: Ensure Enlive Is pt able to select menu?: No - Wound(s) coccyx Wound Type: Pressure Injury left forearm Wound Type: Abrasion - Therapies Physical Therapy: Eval and Treat Occupational Therapy: Eval and Treat - Allergies/Procedures Done in Hospital Allergies/Adverse Reactions: Allergies Penicillins Adverse Reaction (Severe, Verified 05/21/20 16:22) vomiting aspirin Adverse Reaction (Verified 05/21/20 12:35) Upset Stomach HX OF ULCERS Procedures: None - Type of Care/Length of Stay Estimated LOS: Convalescent Care Less Than 30 days Type of Care Needed: Skilled Rehab Potential: Good Prognosis: Good - Additional Orders/Day of Discharge Day of Discharge: 05/23/20 - Dietary and Speech Recommendations Dietitian Recommendations/Changes: Advance diet as indicated to Cardiac and order Km BID for wound healing as able tolerated PO. - Follow Up Care Primary Care Physician: Marlen Lucia MD [Primary Care Provider] - Please follow up with your Primary Care Physician in: 3-5 days
[2020-05-23 15:48] VITALS: BP 147/88; PULSE 72; RESP 18; TEMP 36.7; O2SAT 95
--- NOTE | 2020-05-23 15:54 | CASEMGMT ---
Social Work Note Physician is working on discharging pt. MYAH spoke with RN, pt can transport via wheelchair van. MYAH placed a call to [facility] and spoke with Jad. MYAH arranged transportation for 4:30pm. Jad states they will send cot to pt but bill as wheelchair van transportation. MYAH updated RN on transportation time. MYAH updated pt on transportation time, pt states understanding. MYAH asked pt if this worker could call her sister to update her, pt states she will call her sister once she is at the facility. MYAH placed a call to Rupal at [facility] and updated her pt is discharging today, SW is just waiting for signed medication list/scripts. MYAH updated Rupal on transportation time. SW to fax discharge paperwork once completed. MYAH completed both wheelchair van and ambulance transport form and placed on SNF folder and copy on pt's chart. Plan: Discharge to [facility] skilled with [facility] transporting pt via cot at 4:30pm Krysta RAYO, CELESTINA
--- NOTE | 2020-05-23 15:59 | NURSING ---
report called to [facility] -
--- NOTE | 2020-05-23 17:40 | PCM.DC.SUM ---
Discharge Date and Diagnosis - Problem List Patient Problems: Active and Suspected Problems (Last Reviewed 05/21/20 @ 15:[address] Carlitos Velázquez DO) Failure to thrive (Acute) Toxic encephalopathy (Acute) Generalized weakness (Acute) Frequent falls (Acute) Closed head injury (Acute) Femoral acetabular impingement (Suspected) Date of Admission: 05/21/20 Date of Discharge: 05/23/20 - Primary Discharge Diagnosis Acute Problems: Active Problems (Last Reviewed 05/21/20 @ 15:[address] Carlitos Velázquez DO) Failure to thrive (Acute) Toxic encephalopathy (Acute) Generalized weakness (Acute) Frequent falls (Acute) Closed head injury (Acute) Suspected Problems: Suspected Problems (Last Reviewed 05/21/20 @ 15:[address] Carlitos Velázquez DO) Femoral acetabular impingement (Suspected) - Secondary Discharge Diagnosis Chronic Problems: Chronic Problems (Last Reviewed 05/21/20 @ 15:[address] 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) Degeneration of intervertebral disc of lumbosacral region (Chronic) Radiculopathy of lumbosacral region (Chronic) Spondylosis of lumbosacral region without myelopathy or radiculopathy (Chronic) Lumbar facet arthropathy (Chronic) Headache (Chronic) Rosacea (Chronic) Chronic sinusitis (Chronic) Osteopenia (Chronic) Smoking greater than 40 pack years (Chronic) Congestion of nasal sinus (Chronic) Hypersomnolence (Chronic) Fatigue (Chronic) Neuropathy (Chronic) Vitamin D deficiency (Chronic) History of seizures (Chronic) Asthma (Chronic) Seasonal allergies (Chronic) Hyperlipidemia (Chronic) Seizure disorder (Chronic) Right hip pain (Chronic) Hypertension (Chronic) Chronic back pain (Chronic) Seizures (Chronic) Hospital Course and Treatment Imaging Results: Clinical Impression(s) from Imaging Studies Brain CT 05/21/20 13:13 IMPRESSION: Age consistent changes, no acute findings Old healed nasal fracture Electronically Signed: Richard Gates MD at 14:07 EST , Service support , Cervical Spine CT 05/21/20 13:13 IMPRESSION: Multilevel degenerative changes, as described above. Electronically Signed: Kody Lakhani at 14:05 EST , Service support , Operations: None Procedures: None Summary of Care Provided: Per HPI: The patient is a 59 year old F who is a poor historian presents with a fall. Fall occurred last night. Patient did not seek attention until today. History is obtained through emergency room physician given patient being a poor historian. Patient had fallen, hit her head. Was confused but did undergo a head CT as well as a CAT scan of her neck that were unremarkable. The time to get the patient up and she was unable to stand up on her own so decision was made to bring patient in for further evaluation for possible placement upon discharge. Hospital Course: 1. Failure to thrive/inability to complete a ADLs/toxic encephalopathy/chronic pain/anxiety/[id number]-40-wwlf-old female who in January had a right ankle fracture as well as chronic pain from back surgery, presents after a mechanical fall. It was felt that her mechanical fall as well as her encephalopathy were secondary to polypharmacy. Her medications were adjusted, her hydroxyzine was discontinued and her Lyrica was decreased by 50% 50 mg p.o. 3 times daily. Her Cymbalta and her Lexapro were continued as was her Percocet. She was recently increased from 10 mcg to 15 mcg/h on her buprenorphine patch, which was continued as was her Topamax. She is much more alert and with it today on the day of discharge. She [facility] as she feel that she is not strong enough to go home yet. I discussed with her the plan for discharge, she expressed understanding of the risk and benefits of going to a halfway facility today 2. Hypertension, hyperlipidemia, GERD are all chronic medical conditions complicate her care and her home medications were continued where appropriate Patient Problems: Active and Suspected Problems (Last Reviewed 05/21/20 @ 15:[address] Carlitos Velázquez, ) Failure to thrive (Acute) Toxic encephalopathy (Acute) Generalized weakness (Acute) Frequent falls (Acute) Closed head injury (Acute) Femoral acetabular impingement (Suspected) - Physical Exam Vitals/I&O's: Vital Signs Temp Pulse Resp BP Pulse Ox 98.1 F 72 18 147/88 H 95 11/11/20 15:48 05/23/20 15:48 05/23/20 15:48 05/23/20 15:48 05/23/20 15:48 Oxygen Delivery Method Room Air Weight: 197 lb 15.602 oz Body Mass Index (BMI) 31.9 Intake and Output for Last 24 Hours 05/21/20 05/22/20 05/23/20 23:59 23:59 23:59 Intake Total 2550 / 2550 600 / 600 Output Total 900 / 900 2725 / 2725 1000 / 1000 Balance -900 / -900 -175 / -175 -400 / -400 General: Alert, Oriented x3, Cooperative, No apparent distress HEENT: Atraumatic, PERRLA, EOMI, Normocephalic Oral: Moist Mucosa Neck: Supple, No JVD Lungs: Clear to auscultation, Normal air movement, No rhonchi, No wheeze, No rales Cardiovascular: Regular rate, Regular Rhythm, Normal S1, Normal S2, No murmurs Abdomen: Soft, Non Tender, Non-Distended, No Hepato-splenomegaly Extremities: No edema, Capillary Refill Less than 3 Seconds Skin: No rashes, No breakdown Neurological: Neuro grossly intact, Sensory exam intact to light touch and pain Psych/Mental Status: Normal Affect, Appropriate Microbiology Past 72 Hours 05/21/20 14:00 Urine, Catheterized Urine Culture - Preliminary Culture exhibits no growth. Laboratory Results 05/23/20 11:11: COVID-19 ([facility]) Negative Home Medications: Medications to take at Discharge duloxetine 30 mg capsule,delayed release 30 mg PO BID 02/02/19 Escitalopram Oxalate [Lexapro] 20 mg PO DAILY 12/22/19 Fenofibrate Nanocrystallized [Tricor] 48 mg PO DAILY 12/22/19 Montelukast [Singulair] 10 mg PO QHS 12/22/19 Pravastatin Sodium 20 mg PO QHS 12/22/19 Topiramate [Topamax] 50 mg PO QHS 12/22/19 Lisinopril 40 mg PO DAILY 01/10/20 Omeprazole [Prilosec] 20 mg PO DAILY 02/14/20 Oxycodone HCl/Acetaminophen [Percocet 5-325 mg Tablet] 1 - 2 ea PO Q4H PRN 02/14/20 Buprenorphine 15 mcg TOPICAL QWEEK MDD thursday05/23/20 Oxycodone HCl/Acetaminophen [Percocet 5/325] 1 tab PO Q4H PRN PRN 5 Days #10 tab 05/23/20 Pregabalin 50 mg PO TID #0 05/23/20 Following Prescriptions Were Given to Patient: Oxycodone HCl/Acetaminophen [Percocet 5/325] 1 tab PO Q4H PRN PRN 5 Days #10 tab PRN Reason: Pain Prescription Printed Primary Care Physician: Marlen Lucia MD [Primary Care Provider] - Please follow up with your Primary Care Physician in: 3-5 days Disposition: Correction facility Minutes spent on discharge:: 35 Patient Condition:: Stable Medical Necessity - Tobacco Use Smoking Status: Current every day smoker Meaningful Use Info Meaningful Use Diagnoses (Choose all that apply): None applicable OBSV E&M: 03462 Observation care discharge
== END 2020-05-23 16:50 | disposition skilled nursing facility (03) ==
LOC: ED 14:21 → MS3 15:17
PROVIDERS: Emergency Provider Emergency Medicine; PCP Internal Medicine; Visit Provider Family Medicine
DX: R62.7 Adult failure to thrive (principal); S09.90XA Unspecified injury of head, initial encounter; Z68.32 Body mass index [BMI] 32.0-32.9, adult; R29.6 Repeated falls; E87.1 Hypo-osmolality and hyponatremia; F17.210 Nicotine dependence, cigarettes, uncomplicated; G40.909 Epilepsy, unspecified, not intractable, without status epilepticus; G92 Toxic encephalopathy; M47.27 Other spondylosis with radiculopathy, lumbosacral region; M51.17 Intervertebral disc disorders with radiculopathy, lumbosacral region; J45.909 Unspecified asthma, uncomplicated; G62.9 Polyneuropathy, unspecified; E78.5 Hyperlipidemia, unspecified; I10 Essential (primary) hypertension; G89.29 Other chronic pain; Z79.899 Other long term (current) drug therapy; W01.0XXA Fall on same level from slipping, tripping and stumbling without subsequent striking against object, initial encounter; Y93.9 Activity, unspecified; Y92.9 Unspecified place or not applicable; F41.9 Anxiety disorder, unspecified; F32.9 Major depressive disorder, single episode, unspecified
CPT/HCPCS: 70450; 72125; 80048; 80307; 81001; 82306; 82550; 84484; 85025; 87086; 87635; 93005; 97110; 97162; 97165; 97535; 97802; 99218; 99285; A4216; G0378; U0002

== ENCOUNTER 2020-07-05 03:42 | Emergency (ER) | payer MEDICAID, SELFPAY ==
[2020-05-21 15:57] VITALS: BMI 31.9
[2020-07-05 03:45] VITALS: BP 104/74; PULSE 74; RESP 18; TEMP 36.7; O2SAT 96; BMI 31.6
--- NOTE | 2020-07-05 03:54 | CT_ITS ---
STUDY: CT BRAIN WITHOUT CONTRAST REASON FOR EXAM: Female, 60 years old. ALTERED MENTAL STATUS, CONFUSION, NOT MAKING SENSE, HALLUCINATIONS, HX HTN RADIATION DOSAGE (If Supplied By Facility): CTDIvol = ( 44.99 ) mGy, DLP = ( 815.79 ) mGycm TECHNIQUE: Transaxial CT imaging of the brain was performed without administration of intravenous contrast material. Individualized dose optimization techniques were used for this CT. COMPARISON: No relevant priors. FINDINGS: Normal soft tissue structures. Normal calvarium. Normal size ventricles and extra-axial spaces for the patient''s age. Normal white matter tracts of the cerebral hemispheres. Normal basal ganglia and thalami. Normal brainstem. Normal cerebellum. There is no intracranial hemorrhage. There are no findings of an acute ischemic infarction. Normal visualized paranasal sinuses. CT/Brain/Head without Contrast IMPRESSION: Normal unenhanced CT scan of the brain. Electronically Signed: Komal Leon, at 5:12 EST Tel , Service support ,
--- NOTE | 2020-07-05 03:55 | ED.DCSUM_ITS ---
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 Patient states she also thought her sister sent over a couple to put on a show, patient stated that they should hurry up since she did not have a lot of time, and he left behind mice and other animals. Patient states she did not know that these things were not true until someone told her. She states she has had a productive cough recently without chest pain or dyspnea or fevers/chills. She denies any other physical symptoms. Denies a history of COVID-19, nor has she been exposed anyone that she knows of who has had it. Denies any recent travel out of the area. <Rajan Carreno - Last Filed: 07/05/20 06:29> <Joey Dumont - Last Filed: 07/05/20 12:27> Chief Complaint: Mental Health - Past Medical History (1) Asthma Status: Chronic (2) Chronic back pain Status: Chronic (3) Chronic sinusitis Status: Chronic (4) Degeneration of intervertebral disc of lumbosacral region Status: Chronic (5) Hyperlipidemia Status: Chronic (6) Hypertension Status: Chronic (7) Neuropathy Status: Chronic (8) Osteopenia Status: Chronic (9) Seizure disorder Status: Chronic (10) Spondylosis of lumbosacral region without myelopathy or radiculopathy Status: Chronic (11) History of pneumonia Status: Inactive <Rajan Carreno - Last Filed: 07/05/20 06:29> Past Medical History Surgical History: appendectomy, hysterectomy Smoking Status: Current some day smoker - Family History Maternal Family History: Family History (Last Reviewed 05/21/20 @ 15:[address] Carlitos Velázquez, DO) Mother Breast cancer Hypertension Hyperlipemia Cancer ulcers Father Diabetes Myocardial infarction, Onset Age: 67 Hypertension Depression Sister Depression Hyperlipemia Family History: Reports: Hypertension Paternal Family History: Family History (Last Reviewed 05/21/20 @ 15:[address] Carlitos Velázquez DO) Mother Breast cancer Hypertension Hyperlipemia Cancer ulcers Father Diabetes Myocardial infarction, Onset Age: 67 Hypertension Depression Sister Depression Hyperlipemia Family History: Reports: No pertinent history <Rajan Carreno - Last Filed: 07/05/20 06:29> - Family History Maternal Family History: Family History (Last Reviewed 05/21/20 @ 15:[address] Carlitos Velázquez DO) Mother Breast cancer Hypertension Hyperlipemia Cancer ulcers Father Diabetes Myocardial infarction, Onset Age: 67 Hypertension Depression Sister Depression Hyperlipemia Paternal Family History: Family History (Last Reviewed 05/21/20 @ 15:[address] Carlitos Velázquez DO) Mother Breast cancer Hypertension Hyperlipemia Cancer ulcers Father Diabetes Myocardial infarction, Onset Age: 67 Hypertension Depression Sister Depression Hyperlipemia <Dumont,Joey - Last Filed: 07/05/20 12:27> - Allergies and Home Meds Allergies/Adverse Reactions: Allergies Penicillins Adverse Reaction (Severe, Verified 07/05/20 03:45) vomiting aspirin Adverse Reaction (Verified 07/05/20 03:45) Upset Stomach HX OF ULCERS Primary Care Physician: Marlen Lucia MD [Primary Care Provider] - Review of Systems General: Reports: Malaise. Denies: Chills, Fever, Sweats Eyes: Denies: Visual changes - bilaterally, Diplopia ENT: Reports: - - Sinus congestion. Denies: Bilateral ear pain, Rhinorrhea, Sore throat Cardiovascular: Denies: Chest pain, Palpitations Respiratory: Reports: Cough, Sputum - Yellow. Denies: Dyspnea, Dyspnea on exertion Gastrointestinal: Denies: Abdominal pain, Nausea, Vomiting, Diarrhea, Melena, Hematochezia Genitourinary: Denies: Dysuria, Hematuria, Frequency Musculoskeletal: Denies: Myalgias, Back pain, Swelling, Extremity Pain Skin: Denies: Rash, Wounds Neurological: Denies: Headache, Weakness, Numbness Psych: Reports: - - Visual hallucinations and delusions. See HPI.. Denies: Suicidal thoughts, Suicidal ideations <Rajan Carreno - Last Filed: 07/05/20 06:29> Physical Exam Vital Signs/Narrative: Vital Signs Temp Pulse Resp BP Pulse Ox 07/05/20 03:45 98.1 F 74 18 104/74 96 Inital Vital Signs reviewed: Yes General: Well nourished, Well developed, No Acute Distress Head: Normocephalic, Atraumatic Eyes: Perrl, EOMI ENT: Moist mucous membranes, No rhinorrhea. Negative for: Sinus tenderness Neck: Supple, Nontender, No lymphadenopathy Cardiovascular: Regular rate, Regular rhythm, No murmurs Respiratory: No distress, Chest nontender, Rales - Bibasilar. Negative for: Wheezing Abdomen: Soft, Nontender, Nondistended, Normal bowel sounds Back: Nontender, Normal Inspection Extremities: Nontender, No edema. Negative for: Calf Tenderness Skin: Normal color, No rash, No Trauma Neurological: Alert, Oriented x3, Cranial nerves II-XII grossly intact, Normal Strength, Normal Sensation Psychological: Normal affect, Normal Mood, - - Patient insightful into the fact that the things that she saw were not real, after she was alerted about it <Rajan Carreno - Last Filed: 07/05/20 06:29> Vital Signs/Narrative: Vital Signs Pulse Resp BP Pulse Ox 07/05/20 10:12 75 18 118/79 91 07/05/20 07:36 79 18 118/90 H 93 <TimJoey - Last Filed: 07/05/20 12:27> Diagnostic/Tx/Re-eval Chest X-Ray - ED: 1 View, Read by ED Physician, Normal, Heart, Lungs, Mediastinum, No Acute Disease Clinical Impression(s) from Imaging Studies Brain CT 07/05/20 03:54 IMPRESSION: Normal unenhanced CT scan of the brain. Electronically Signed: Komal Leon, at 5:12 EST Tel , Service support , Chest X-Ray 07/05/20 04:50 IMPRESSION: Normal x-ray examination of the chest. Electronically Signed: Komal Leon at 5:13 EST Tel , Service support , Laboratory Tests 07/05/20 07/05/20 07/05/20 Range/Units 04:35 04:35 04:10 WBC (4.4-11.0) K/mm3 RBC (4.2-5.4) M/mm3 Hgb (12.0-15.0) g/dL Hct (37-47) % MCV (81-99) fL MCH (27.0-32.0) pg MCHC (32-36) g/dL RDW Std Deviation (35.1-43.9) fl RDW Coeff of Dyana (11.6-14.6) % Plt Count (150-450) K/mm3 MPV (6.2-12.0) fl Immature Gran % (Auto) (0.0-0.9) % Neut % (Auto) (47-70) % Lymph % (Auto) (19-41) % Hays % (Auto) (0-10) % Eos % (Auto) (0-5) % Baso % (Auto) (0-1) % Absolute Neuts (auto) (2.0-7.7) X10^3/uL Absolute Lymphs (auto) (0.83-4.51) X10^3/uL Nucleated RBC % (0-5) % Sodium (136-145) mmol/L Potassium (3.5-5.1) mmol/L Chloride (98-107) mmol/L Carbon Dioxide (21.0-32.0) mmol/L Anion Gap (5-15) BUN (7-18) mg/dL Creatinine (0.55-1.02) mg/dL Estim Creat Clear Calc ml/min Est GFR (MDRD) Af Amer (>60) mL/min Est GFR (MDRD) Non-Af (>60) mL/min BUN/Creatinine Ratio (10-20) RATIO Glucose (74-106) mg/dL Lactic Acid 1.6 (0.4-1.9) mmol/L Calcium (8.5-10.1) mg/dL Total Bilirubin (0.20-1.00) mg/dL AST (15-37) U/L ALT (13-56) U/L Alkaline Phosphatase (45-117) U/L Troponin I (<0.045) ng/mL Total Protein (6.4-8.2) g/dL Albumin (3.2-5.0) g/dL Globulin (2.2-4.2) g/dL Albumin/Globulin Ratio (0.9-2.4) RATIO Urine Color Yellow (Yellow) Urine Clarity Clear (Clear) Urine pH 6.0 (5.0 - 8.0) Ur Specific [place] 1.020 (1.002-1.030) Urine Protein 15 H (Negative) mg/dl Urine Glucose (UA) Normal (Normal) mg/dl Urine Ketones Negative (Negative) mg/dl Urine Occult Blood Negative (Negative) /ul Urine Nitrite Negative (Negative) Urine Bilirubin Negative (Negative) mg/dL Urine Urobilinogen Normal (Normal) mg/dl Ur Leukocyte Esterase 25 H (Negative) /ul Urine RBC 0 SEEN (0-5) /hpf Urine WBC 5-10 SEEN (0-5) /hpf Ur Squamous Epith Cells 5-10 SEEN (5-10) /hpf Urine Bacteria 0 SEEN (None Seen) /hpf Urine Mucus 0 SEEN (<or=2+) /hpf Urine Opiates Screen NEGATIVE (< 300 ng/mL) Urine Methadone Screen NEGATIVE (< 300 ng/mL) Ur Barbiturates Screen NEGATIVE (< 200 ng/mL) Ur Phencyclidine Scrn NEGATIVE (< 25 ng/mL) Ur Amphetamines Screen NEGATIVE (<1000 ng/mL) U Methamphetamin-MDMA NEGATIVE (< 500 ng/mL) U Benzodiazepines Scrn NEGATIVE (< 200 ng/mL) Urine Cocaine Screen NEGATIVE (< 300 ng/mL) U Cannabinoids Screen NEGATIVE (< 50 ng/mL) Ur Drug Screen Comment Ethyl Alcohol mg/dL 07/05/20 07/05/20 07/05/20 Range/Units 03:55 03:55 03:55 WBC 6.4 (4.4-11.0) K/mm3 RBC 4.25 (4.2-5.4) M/mm3 Hgb 11.8 L (12.0-15.0) g/dL Hct 36.9 L (37-47) % MCV 86.8 (81-99) fL MCH 27.8 (27.0-32.0) pg MCHC 32.0 (32-36) g/dL RDW Std Deviation 43.8 (35.1-43.9) fl RDW Coeff of Dyana 13.9 (11.6-14.6) % Plt Count 201 (150-450) K/mm3 MPV 11.0 (6.2-12.0) fl Immature Gran % (Auto) 0.300 (0.0-0.9) % Neut % (Auto) 43.0 L (47-70) % Lymph % (Auto) 39.3 (19-41) % Hays % (Auto) 12.5 H (0-10) % Eos % (Auto) 3.7 (0-5) % Baso % (Auto) 1.2 H (0-1) % Absolute Neuts (auto) 2.8 (2.0-7.7) X10^3/uL Absolute Lymphs (auto) 2.52 (0.83-4.51) X10^3/uL Nucleated RBC % 0 (0-5) % Sodium 138 (136-145) mmol/L Potassium 3.2 L (3.5-5.1) mmol/L Chloride 102 (98-107) mmol/L Carbon Dioxide 29.0 (21.0-32.0) mmol/L Anion Gap 7 (5-15) BUN 31 H (7-18) mg/dL Creatinine 1.30 H (0.55-1.02) mg/dL Estim Creat Clear Calc 43.08 ml/min Est GFR (MDRD) Af Amer 54 L (>60) mL/min Est GFR (MDRD) Non-Af 44 L (>60) mL/min BUN/Creatinine Ratio 23.8 H (10-20) RATIO Glucose 126 H (74-106) mg/dL Lactic Acid (0.4-1.9) mmol/L Calcium 8.5 (8.5-10.1) mg/dL Total Bilirubin 0.30 (0.20-1.00) mg/dL AST 18 (15-37) U/L ALT 18 (13-56) U/L Alkaline Phosphatase 70 (45-117) U/L Troponin I < 0.015 (<0.045) ng/mL Total Protein 6.2 L (6.4-8.2) g/dL Albumin 3.2 (3.2-5.0) g/dL Globulin 3.0 (2.2-4.2) g/dL Albumin/Globulin Ratio 1.1 (0.9-2.4) RATIO Urine Color (Yellow) Urine Clarity (Clear) Urine pH (5.0 - 8.0) Ur Specific [place] (1.002-1.030) Urine Protein (Negative) mg/dl Urine Glucose (UA) (Normal) mg/dl Urine Ketones (Negative) mg/dl Urine Occult Blood (Negative) /ul Urine Nitrite (Negative) Urine Bilirubin (Negative) mg/dL Urine Urobilinogen (Normal) mg/dl Ur Leukocyte Esterase (Negative) /ul Urine RBC (0-5) /hpf Urine WBC (0-5) /hpf Ur Squamous Epith Cells (5-10) /hpf Urine Bacteria (None Seen) /hpf Urine Mucus (<or=2+) /hpf Urine Opiates Screen (< 300 ng/mL) Urine Methadone Screen (< 300 ng/mL) Ur Barbiturates Screen (< 200 ng/mL) Ur Phencyclidine Scrn (< 25 ng/mL) Ur Amphetamines Screen (<1000 ng/mL) U Methamphetamin-MDMA (< 500 ng/mL) U Benzodiazepines Scrn (< 200 ng/mL) Urine Cocaine Screen (< 300 ng/mL) U Cannabinoids Screen (< 50 ng/mL) Ur Drug Screen Comment Ethyl Alcohol < 3.0 mg/dL - Rhythm Strip Rhythm Strip: Sinus Rhythm Rate: 74 Ectopy: None - EKG Initial EKG Interpretation: Sinus Rhythm, No Acute Injury Pattern Prior: Unchanged - Medical Decision Making Testing looking for organic disease that could cause visual hallucinations was performed. Testing shows no definitive urine or pulmonary infection, she did have some leukocyte esterase and a small number of white blood cells in the urine, unlikely indicative of infection, but this was sent for culture and she was given empiric antibiotics given that it was not totally normal. Blood cultures were obtained. Given her normal vital signs, I doubt bacteremia, but a septic work-up was obtained in addition to a CT of the head, which showed nothing acute. Additionally her COVID-19 rapid antigen was negative. Her potassium is slightly low, but that would not be causing these symptoms on its own. Given the lack of additional electrolyte disorders, I do not suspect a toxidrome, or an acute metabolic process that is causing this. Psychiatric causes are also in the differential diagnosis here. TSH is not obtained since patient has normal vital signs, is not in A. fib, and has not been having diarrhea, heat intolerance, or other signs of hyperthyroidism. Also, her NIHSS is 0, there is no extremity weakness. She has normal speech. Her answers to questions in the ER are appropriate. She has had no symptoms of abulia. Therefore, I do not suspect this is a stroke. Plan is to wait for social work to arrive within the next 2 hours or so to start evaluating for psychiatric disturbance. At this time, patient is medically cleared. She was given some oral potassium to start replacement. Of note, during her ED stay, she ran out to tell nursing that she accidentally s pilled some macaroni and cheese. There was no food in the room. <Rajan Carreno - Last Filed: 07/05/20 06:29> - Medical Decision Making Nurse informed me that she requested pain medicine. She does have history of chronic pain. Lidoderm patch was ordered. I was informed at 1028 that she would like something different. 650 mg of acetaminophen was ordered. Patient was accepted by Dr. Caro . <Joey Dumont - Last Filed: 07/05/20 12:27> ED Disposition <Rajan Carreno - Last Filed: 07/05/20 06:29> <Joey Dumont - Last Filed: 07/05/20 12:27> - Plan for ED Patient: Disposition: Psychiatric Hospital or Unit Diagnosis: Visual hallucinations, Hypokalemia Referrals: Marlen Lucia MD [Primary Care Provider] -
[2020-07-05 04:06] LABS: Absolute Lymphocyte Count 2.52 X10^3/uL (0.83-4.51); Absolute Neutrophil Count 2.8 X10^3/uL (2.0-7.7); Basophil# 0.08 X10^3/uL; Basophil% 1.2 % (0-1); Eosinophil# 0.24 X10^3/uL; Eosinophils% 3.7 % (0-5); Hematocrit 36.9 % (37-47); Hemoglobin 11.8 g/dL (12.0-15.0); Lymphocyte # 2.52 X10^3/ul (4.0); Lymphocyte % 39.3 % (19-41); Mean Corpuscular Hgb 27.8 pg (27.0-32.0); Mean Corpuscular Volume 86.8 fL (81-99); Monocyte% 12.5 % (0-10); NRBC Flagged by Analyzer 0 % (0-5); Neutrophil # 2.76 X10^3/uL (2.7-7.7); Platelet Count 201 K/mm3 (150-450); RBC Distribution Width CV 13.9 % (11.6-14.6); RBC Distribution Width SD 43.8 fl (35.1-43.9); Red Blood Count 4.25 M/mm3 (4.2-5.4); White Blood Count 6.4 K/mm3 (4.4-11.0)
[2020-07-05 04:18] LABS: Alcohol, Blood (Medical)-Serum < 3.0 mg/dL
[2020-07-05 04:23] LABS: ALB/GLOB Ratio 1.1 RATIO (0.9-2.4); AST(SGOT) 18 U/L (15-37); Alanine Aminotransfer ALT/SGPT 18 U/L (13-56); Albumin, Serum 3.2 g/dL (3.2-5.0); Alkaline Phosphatase 70 U/L (45-117); Anion Gap 7 (5-15); BUN 31 mg/dL (7-18); BUN/Creat Ratio 23.8 RATIO (10-20); Calcium,Total 8.5 mg/dL (8.5-10.1); Chloride 102 mmol/L (98-107); EST Glomerular Filtration Rate 44 mL/min (>60); Est Glom Filt Rate - Afr Amer 54 mL/min (>60); Estimated Creatinine Clearance 43.08 ml/min; Glucose 126 mg/dL (74-106); Potassium 3.2 mmol/L (3.5-5.1); Protein, Total 6.2 g/dL (6.4-8.2); Sodium Level 138 mmol/L (136-145)
[2020-07-05] MEDS: 0.9% Normal Saline 1,000 ML 150 ML IV (04:27)
[2020-07-05 04:41] LABS: Lactic Acid 1.6 mmol/L (0.4-1.9)
[2020-07-05 04:48] LABS: Bacteria 0 SEEN /hpf (None Seen); Mucous, Urine 0 SEEN /hpf (<or=2+); Red Blood Cells-Urine 0 SEEN /hpf (0-5)
[2020-07-05 04:49] LABS: Color, Urine Yellow (Yellow); Glucose, Dipstick Normal (Normal); Ketone-Dipstick Negative (Negative); Leukocyte Esterase-Dipstick 25 /ul (Negative); Nitrite-Dipstick Negative (Negative); Occult Blood-Urine Negative /ul (Negative); Protein-Dipstick 15 mg/dl (Negative); Urine Bilirubin Dipstick Negative (Negative); Urine Clarity Clear (Clear); Urine Urobilinogen Normal (Normal)
--- NOTE | 2020-07-05 04:50 | RAD_ITS ---
STUDY: X-RAY CHEST REASON FOR EXAM: Female, 60 years old. PT BROUGHT IN BY EMS. PT HAVING HALLUCINATIONS AND CONFUSION. TECHNIQUE: Single AP portable view of the chest. COMPARISON: None. FINDINGS: The lungs are clear and expanded. There is no demonstrated pleural abnormality. Normal size heart. Normal mediastinum and shyla. Normal visualized pulmonary arteries. Normal visualized aortic arch and descending thoracic aorta. Normal visualized thoracic spine. Normal visualized ribs, clavicles, and shoulders. There is no demonstrated abnormality of the visualized soft tissue structures of the upper abdomen. RAD/Chest 1 View (Portable) IMPRESSION: Normal x-ray examination of the chest. Electronically Signed: Komal Leon, at 5:13 EST Tel , Service support ,
[2020-07-05 04:56] LABS: Squamous Epithelial Cells - UA 5-10 SEEN /hpf (5-10); White Blood Cells 5-10 SEEN /hpf (0-5)
[2020-07-05 04:59] VITALS: BP 105/64; PULSE 86; RESP 17; O2SAT 97
[2020-07-05 05:04] LABS: Amphetamine Urine VISTA NEGATIVE (<1000 ng/mL); Barbiturate Urine VISTA NEGATIVE (< 200 ng/mL); Benzodiazepine Urine VISTA NEGATIVE (< 200 ng/mL); Cocaine Urine VISTA NEGATIVE (< 300 ng/mL); Ecstacy Urine VISTA NEGATIVE (< 500 ng/mL); Methadone Urine VISTA NEGATIVE (< 300 ng/mL); PCP Urine VISTA NEGATIVE (< 25 ng/mL); THC Urine VISTA NEGATIVE (< 50 ng/mL); Vista UDS pH Range 5
[2020-07-05 05:32] VITALS: BP 103/78; PULSE 74; RESP 15; O2SAT 95
[2020-07-05] MEDS: Cephalexin 250 MG Capsule 500 MG PO (05:44)
[2020-07-05 07:36] VITALS: BP 118/90; PULSE 79; RESP 18; O2SAT 93
[2020-07-05] MEDS: Lidocaine 5% Patch 1 PATCH TOPICAL (09:46)
--- NOTE | 2020-07-05 10:00 | CM.ED ---
SOCIAL WORK ASSESSMENT Informant: Dr. Carreno/Nursing Reason for Consult: Mental Health Evaluation Chief Compliant: Patient presents to [facility] ER by squad. Per squad report, EMS called for a female trapped under couch-upon arrival no other female in the apartment. Landlord stated patient came down at 1:30a saying someone was in her apartment. Patient with active hallucinations. Marital/Social History: Living Situation: Lives alone in a 1 bedroom apartment Support/Resources: Patient unable to recall who her supports are at this time. Education/Employment History: Patient states some college. Patient reports I worked many jobs. Mental Health Treatment/History: Patient reports anxiety. Patient states is treated with medication, but unable to recall name. Patient denies any counseling services. Substance Abuse History: Patient denies any substance use. Risk to Self/Others: Suicidal- Patient denies any suicidal ideation, plan or intent. Homicidal- Patient denies any homicidal ideation. Mental Status Exam: Orientation-A&Ox2 Memory-Poor Appearance/General Behavior: disheveled, calm Mood/Affect: anxious, bizarre Communication Pattern: responds to questions, patient required questions to be repeated Thought Process: auditory and visual hallucinations, paranoid Judgment: poor Assessment: Met with patient in room. Introduced role and reason for referral. Patient sleeping upon entering room. Patient states having a hard time staying awake. Patient unable to recall why she is in the ER. Patient states lives home alone in a 1 bedroom apartment. Patient denies any history of mental health. Later in assessment patient reported, I do have anxiety. Discussed any previous hospitalizations for mental health and patient reports NO! Reviewed physician documentation and [place] [facility]. Patient with active hallucinations. Patient reported there were mice and rats in room putting on a magic show. Patient also told nursing that she spilled her Mac&Cheese when there was no Mac&Cheese in the room. Collaboration with ER physician. Plan for referral for inpatient psych. This worker to facilitate placement. Plan: Referral for inpatient psych Maryan Danielle MSW, LABELING MACHINE OPERATOR
[2020-07-05 10:12] VITALS: BP 118/79; PULSE 75; RESP 18; O2SAT 91
[2020-07-05] MEDS: Acetaminophen 325 MG Tablet 650 MG PO (10:39)
--- NOTE | 2020-07-05 10:53 | CM.ED ---
SOCIAL WORK Referral called and faxed to Salena Danielle, SEAL SKINNER, DRY KILN OPERATOR HELPER
--- NOTE | 2020-07-05 12:01 | CM.ED ---
SOCIAL WORK Call to [facility] to check on status of referral, spoke with Kiersten. Pending review at this time. Maryan Danielle, VALVE ASSEMBLER, WHITE MIXING OPERATOR
--- NOTE | 2020-07-05 12:20 | CM.ED ---
SOCIAL WORK Call from Kiersten with [facility]. Patient accepted by Dr. Brice. Nurse to call report to [phone]. [facility] to set up transport. Staff and patient updated. Maryan Danielle, PAVING FOREMAN, PERSONNEL AND PAYROLL TECHNICIAN
[2020-07-05 14:05] VITALS: BP 100/57; PULSE 83; RESP 16; RESP 17; TEMP 36.4; O2SAT 93
== END 2020-07-05 14:07 ==
PROVIDERS: Emergency Provider Emergency Medicine; PCP Internal Medicine
DX: R44.1 Visual hallucinations (principal); E87.6 Hypokalemia; G40.909 Epilepsy, unspecified, not intractable, without status epilepticus; I10 Essential (primary) hypertension; E78.5 Hyperlipidemia, unspecified; J45.909 Unspecified asthma, uncomplicated; M85.80 Other specified disorders of bone density and structure, unspecified site; M47.817 Spondylosis without myelopathy or radiculopathy, lumbosacral region; M51.37 Other intervertebral disc degeneration, lumbosacral region; G62.9 Polyneuropathy, unspecified; M54.9 Dorsalgia, unspecified; G89.29 Other chronic pain; F17.200 Nicotine dependence, unspecified, uncomplicated; Z87.01 Personal history of pneumonia (recurrent)
CPT/HCPCS: 36415; 70450; 71045; 80053; 80307; 80320; 81001; 83605; 84484; 85025; 87040; 87086; 87088; 87426; 93005; 96360; 96361; 99285; J7030; A4216; G0480

== ENCOUNTER 2020-07-17 13:35 | Observation (INO) | payer MEDICAID, SELFPAY ==
[2020-07-17] VITALS (15 sets, daily range): BP systolic 70–121; BP diastolic 38–74; PULSE 53–69; RESP 11–19; TEMP 35.8–36.9; O2SAT 93–100; BMI 32.7; BMI 31.9
--- NOTE | 2020-07-17 13:51 | ED.DCSUM_ITS ---
History of Present Illness Chief Complaint: Unresponsive Informant: Patient Narrative: 60-year-old female presenting via EMS for unresponsiveness. She was found by EMS in her car initially unresponsive, but after they open the door the patient woke up. She has not required Narcan. They did find a buprenorphine on her. This was removed. Does state that she took her gabapentin as well today. She denies any other drug or alcohol abuse. Her car was parked and did not appear to have any damage such as MVC. Patient is able to answer questions but has to be redirected. She appears somnolent. She does awake to voice. - Past Medical History (1) Toxic encephalopathy Status: Chronic (2) Asthma Status: Chronic (3) Chronic back pain Status: Chronic Past Medical History - Allergies and Home Meds Allergies/Adverse Reactions: Allergies Penicillins Adverse Reaction (Severe, Verified 07/17/20 13:44) vomiting aspirin Adverse Reaction (Verified 07/17/20 13:44) Upset Stomach HX OF ULCERS Primary Care Physician: Marlen Lucia MD [Primary Care Provider] - Past Medical History: - - Reviewed in problem list Surgical History: appendectomy, hysterectomy Smoking Status: Current some day smoker - Family History Maternal Family History: Family History (Last Reviewed 07/17/20 @ 16:52 by Yamileth Rodrigues NP, ASSISTANT HOUSEKEEPING MANAGER-C) Mother Breast cancer Hypertension Hyperlipemia Cancer ulcers Father Diabetes Myocardial infarction, Onset Age: 67 Hypertension Depression Sister Depression Hyperlipemia Family History: Reports: Hypertension Paternal Family History: Family History (Last Reviewed 07/17/20 @ 16:52 by Yamileth Rodrigues NP, ASSISTANT HOUSEKEEPING MANAGER-C) Mother Breast cancer Hypertension Hyperlipemia Cancer ulcers Father Diabetes Myocardial infarction, Onset Age: 67 Hypertension Depression Sister Depression Hyperlipemia Family History: Reports: No pertinent history Review of Systems General: Denies: Chills, Fever, Sweats Eyes: Denies: Visual changes - bilaterally, Diplopia ENT: Denies: Rhinorrhea, Sore throat Cardiovascular: Denies: Chest pain, Palpitations Respiratory: Denies: Dyspnea, Cough, Dyspnea on exertion Gastrointestinal: Denies: Abdominal pain, Nausea, Vomiting, Diarrhea, Melena, Hematochezia Genitourinary: Denies: Dysuria, Hematuria, Frequency Musculoskeletal: Reports: Back pain. Denies: Extremity Pain Skin: Denies: Rash, Wounds Neurological: Denies: Headache, Weakness, Numbness Psych: Denies: Depression, Anxiety, Suicidal thoughts, Suicidal ideations, -, - Endocrine: Denies: Polyuria, Polydipsia, Heat intolerance, Cold intolerance, -, - Physical Exam Vital Signs/Narrative: Vital Signs Temp Pulse Resp BP Pulse Ox 07/17/20 13:36 98.2 F 66 12 96/68 93 General: Obese, - - Somnolent but redirectable by voice. Head: Normocephalic, Atraumatic Eyes: Perrl, EOMI ENT: Moist mucous membranes, No rhinorrhea Cardiovascular: Regular rate, Regular rhythm Respiratory: No distress, CTA bilaterally Abdomen: Soft, Nontender, Nondistended Extremities: Nontender, No edema Skin: Normal color, No rash. Negative for: Cyanosis, Diaphoresis Neurological: Alert, Oriented x3, Cranial nerves II-XII grossly intact Psychological: Depressed. Negative for: Agitated Diagnostic/Tx/Re-eval Clinical Impression(s) from Imaging Studies Brain CT 07/17/20 13:52 IMPRESSION: Normal unenhanced CT scan of the brain. Electronically Signed: Kody Lakhani, at 14:30 EST , Service support , Chest X-Ray 07/17/20 13:52 IMPRESSION: No acute abnormality is seen. Electronically Signed: Kody Lakhani, at 14:30 EST , Service support , Laboratory Data 07/17/20 07/17/20 07/17/20 13:45 13:45 13:45 WBC 7.3 RBC 4.57 Hgb 12.7 Hct 39.4 MCV 86.2 MCH 27.8 MCHC 32.2 RDW Std Deviation 44.7 H RDW Coeff of Dyana 14.1 Plt Count 298 MPV 10.7 Immature Gran % (Auto) 0.300 Neut % (Auto) 57.0 Lymph % (Auto) 31.2 Ocean % (Auto) 8.0 Eos % (Auto) 2.5 Baso % (Auto) 1.0 Absolute Neuts (auto) 4.2 Absolute Lymphs (auto) 2.29 Nucleated RBC % 0 Sodium 136 Potassium 3.8 Chloride 103 Carbon Dioxide 26.0 Anion Gap 7 BUN 21 H Creatinine 1.71 H Estim Creat Clear Calc 32.75 Est GFR (MDRD) Af Amer 39 L Est GFR (MDRD) Non-Af 32 L BUN/Creatinine Ratio 12.3 Glucose 90 Lactic Acid Calcium 8.8 Total Bilirubin 0.50 AST 14 L ALT 18 Alkaline Phosphatase 73 Ammonia Troponin I < 0.015 Total Protein 6.8 Albumin 3.4 Globulin 3.4 Albumin/Globulin Ratio 1.0 Procalcitonin Urine Color Urine Clarity Urine pH Ur Specific Grandy Urine Protein Urine Glucose (UA) Urine Ketones Urine Occult Blood Urine Nitrite Urine Bilirubin Urine Urobilinogen Ur Leukocyte Esterase Urine RBC Urine WBC Ur Squamous Epith Cells Urine Bacteria Urine Mucus Urine Opiates Screen Urine Methadone Screen Ur Barbiturates Screen Ur Phencyclidine Scrn Ur Amphetamines Screen U Methamphetamin-MDMA U Benzodiazepines Scrn Urine Cocaine Screen U Cannabinoids Screen Ur Drug Screen Comment Ethyl Alcohol < 3.0 07/17/20 07/17/20 07/17/20 13:45 14:15 14:15 WBC RBC Hgb Hct MCV MCH MCHC RDW Std Deviation RDW Coeff of Dyana Plt Count MPV Immature Gran % (Auto) Neut % (Auto) Lymph % (Auto) Ocean % (Auto) Eos % (Auto) Baso % (Auto) Absolute Neuts (auto) Absolute Lymphs (auto) Nucleated RBC % Sodium Potassium Chloride Carbon Dioxide Anion Gap BUN Creatinine Estim Creat Clear Calc Est GFR (MDRD) Af Amer Est GFR (MDRD) Non-Af BUN/Creatinine Ratio Glucose Lactic Acid 1.0 Calcium Total Bilirubin AST ALT Alkaline Phosphatase Ammonia 17.0 Troponin I Total Protein Albumin Globulin Albumin/Globulin Ratio Procalcitonin 0.11 H Urine Color Urine Clarity Urine pH Ur Specific Grandy Urine Protein Urine Glucose (UA) Urine Ketones Urine Occult Blood Urine Nitrite Urine Bilirubin Urine Urobilinogen Ur Leukocyte Esterase Urine RBC Urine WBC Ur Squamous Epith Cells Urine Bacteria Urine Mucus Urine Opiates Screen Urine Methadone Screen Ur Barbiturates Screen Ur Phencyclidine Scrn Ur Amphetamines Screen U Methamphetamin-MDMA U Benzodiazepines Scrn Urine Cocaine Screen U Cannabinoids Screen Ur Drug Screen Comment Ethyl Alcohol 07/17/20 07/17/20 14:45 14:45 WBC RBC Hgb Hct MCV MCH MCHC RDW Std Deviation RDW Coeff of Dyana Plt Count MPV Immature Gran % (Auto) Neut % (Auto) Lymph % (Auto) Ocean % (Auto) Eos % (Auto) Baso % (Auto) Absolute Neuts (auto) Absolute Lymphs (auto) Nucleated RBC % Sodium Potassium Chloride Carbon Dioxide Anion Gap BUN Creatinine Estim Creat Clear Calc Est GFR (MDRD) Af Amer Est GFR (MDRD) Non-Af BUN/Creatinine Ratio Glucose Lactic Acid Calcium Total Bilirubin AST ALT Alkaline Phosphatase Ammonia Troponin I Total Protein Albumin Globulin Albumin/Globulin Ratio Procalcitonin Urine Color Yellow Urine Clarity Clear Urine pH 5.0 Ur Specific Grandy 1.025 Urine Protein 15 H Urine Glucose (UA) Normal Urine Ketones 5 H Urine Occult Blood 25 H Urine Nitrite Negative Urine Bilirubin 3 H Urine Urobilinogen 1 H Ur Leukocyte Esterase 25 H Urine RBC 0-5 SEEN Urine WBC 0-5 SEEN Ur Squamous Epith Cells 0-5 SEEN Urine Bacteria RARE Urine Mucus 0 SEEN Urine Opiates Screen NEGATIVE Urine Methadone Screen NEGATIVE Ur Barbiturates Screen NEGATIVE Ur Phencyclidine Scrn NEGATIVE Ur Amphetamines Screen NEGATIVE U Methamphetamin-MDMA NEGATIVE U Benzodiazepines Scrn NEGATIVE Urine Cocaine Screen NEGATIVE U Cannabinoids Screen NEGATIVE Ur Drug Screen Comment Ethyl Alcohol - Rhythm Strip Rhythm Strip: Sinus Rhythm Rate: 53 - EKG Initial EKG Interpretation: No Acute Injury Pattern, Sinus Bradycardia, AV Block - First- degree, - - ME interval 224 ms QRS duration 82 ms QTC 49 ms - Medical Decision Making 60-year-old female presenting with mental status. She was found in her car at her hair salon she had not gotten her haircut.EMS stated that when they arrived they open the door and the patient awoke. She was noted to have a buprenorphine patch on and they did remove this. On arrival to the ER she was awake and talking but appeared sleepy. For this reason she was given Narcan at which time she was unresponsive. She was protecting her airway and her vital signs were stable except for a low blood pressure which started when she was asleep. She was taken over to CT where she had a CT of her brain performed. This was negative for acute intracranial pathology. Patient's chest x-ray is interpreted by myself and the radiologist shows no acute process. EKG shows a sinus rhythm without ischemic changes interpreted by myself. Lab work shows no leukocytosis. Hemoglobin is stable. Patient has a slight increase in her creatinine but does not appear dehydrated. Urine drug screen is negative. Troponin is negative. Patient had waxing and waning of her symptoms in the ED. When she awoke her blood pressure would normalize and when she went to sleep her blood pressure dropped to the 80s. She was given 2 and half liters of fluids thus far and her pressure only seems respond when she is awake. I have concern that she could possibly be having seizure at she has a history of seizure. She has not had any tonic-clonic type activity. Likely her confusion is a postictal state. She was given a gram of Keppra and put on precautions. Patient was discussed with hospitalist who will admit the patient for further monitoring and EEG. Impression: 1. Altered mental status ED Disposition - Plan for ED Patient: Referrals: Marlen Lucia MD [Primary Care Provider] -
--- NOTE | 2020-07-17 13:52 | CT_ITS ---
STUDY: CT BRAIN WITHOUT CONTRAST REASON FOR EXAM: Female, 60 years old. Altered mental status, unresponsive in car, lethargic. Hx seizures. RADIATION DOSAGE (If Supplied By Facility): CTDIvol = ( 44.99 ) mGy, DLP = ( 812.98 ) mGycm TECHNIQUE: Transaxial CT imaging of the brain was performed without administration of intravenous contrast material. Individualized dose optimization techniques were used for this CT. COMPARISON: Comparison is made with prior examination dated 07/05/2020 FINDINGS: Normal soft tissue structures. There is hyperostosis frontalis internus. Normal size ventricles and extra-axial spaces for the patient''s age. Normal white matter tracts of the cerebral hemispheres. Normal basal ganglia and thalami. Normal brainstem. Normal cerebellum. There is no intracranial hemorrhage. There are no findings of an acute ischemic infarction. Normal visualized paranasal sinuses. CT/Brain/Head without Contrast IMPRESSION: Normal unenhanced CT scan of the brain. Electronically Signed: Kody Lakhani, at 14:30 EST , Service support ,
--- NOTE | 2020-07-17 13:52 | RAD_ITS ---
STUDY: X-RAY CHEST REASON FOR EXAM: Female, 60 years old. UNRESPONSIVE TECHNIQUE: Single AP portable view of the chest. COMPARISON: Comparison is made with prior study dated 07/05/2020. FINDINGS: EKG electrodes are seen. The lungs are clear and expanded. There is no demonstrated pleural abnormality. Normal size heart. Normal mediastinum and shyla. Normal visualized pulmonary arteries. There is atherosclerotic calcification of the aortic arch with tortuosity. Normal visualized thoracic spine. Normal visualized ribs, clavicles, and shoulders. There is no demonstrated abnormality of the visualized soft tissue structures of the upper abdomen. RAD/Chest 1 View (Portable) IMPRESSION: No acute abnormality is seen. Electronically Signed: Kody Lakhani, at 14:30 EST , Service support ,
--- NOTE | 2020-07-17 13:52 | EKG12_ITS ---
Test Reason : UNRESPONSIVE Blood Pressure : / mmHG Vent. Rate : 053 BPM Atrial Rate : 053 BPM P-R Int : 224 ms QRS Dur : 082 ms QT Int : 522 ms P-R-T Axes : 040 -06 048 degrees QTc Int : 489 ms Sinus bradycardia with 1st degree A-V block Low voltage QRS Prolonged QT Inferior infarct, age undetermined, cannot be excluded Abnormal ECG Confirmed by FELA DUBOIS, ADILENE ([id number]), publications editor TONYA BOLANOS ([id number]) on 07/18/2020 9:35:16 AM Referred By: [facility] Confirmed By:ADILENE CHAHAL MD
[2020-07-17] MEDS: 0.9% Normal Saline 1,000 ML 1000 ML IV (13:57)
[2020-07-17] MEDS: Naloxone 2 MG/2 ML Syringe IV (13:59)
[2020-07-17 14:09] LABS: Absolute Lymphocyte Count 2.29 X10^3/uL (0.83-4.51); Absolute Neutrophil Count 4.2 X10^3/uL (2.0-7.7); Basophil# 0.07 X10^3/uL; Eosinophil# 0.18 X10^3/uL; Eosinophils% 2.5 % (0-5); Hematocrit 39.4 % (37-47); Hemoglobin 12.7 g/dL (12.0-15.0); Lymphocyte # 2.29 X10^3/ul (4.0); Lymphocyte % 31.2 % (19-41); Mean Corp Hgb Conc 32.2 g/dL (32-36); Mean Corpuscular Hgb 27.8 pg (27.0-32.0); Mean Corpuscular Volume 86.2 fL (81-99); Mean Platelet Vol. 10.7 fl (6.2-12.0); Monocyte# 0.59 X10^3/uL; NRBC Flagged by Analyzer 0 % (0-5); Neutrophil # 4.19 X10^3/uL (2.7-7.7); Platelet Count 298 K/mm3 (150-450); RBC Distribution Width CV 14.1 % (11.6-14.6); RBC Distribution Width SD 44.7 fl (35.1-43.9); Red Blood Count 4.57 M/mm3 (4.2-5.4); White Blood Count 7.3 K/mm3 (4.4-11.0)
[2020-07-17 14:25] LABS: AST(SGOT) 14 U/L (15-37); Alanine Aminotransfer ALT/SGPT 18 U/L (13-56); Albumin, Serum 3.4 g/dL (3.2-5.0); Alkaline Phosphatase 73 U/L (45-117); Anion Gap 7 (5-15); BUN 21 mg/dL (7-18); BUN/Creat Ratio 12.3 RATIO (10-20); Calcium,Total 8.8 mg/dL (8.5-10.1); Chloride 103 mmol/L (98-107); Creatinine, Serum 1.71 mg/dL (0.55-1.02); EST Glomerular Filtration Rate 32 mL/min (>60); Est Glom Filt Rate - Afr Amer 39 mL/min (>60); Estimated Creatinine Clearance 32.75 ml/min; Globulin 3.4 g/dL (2.2-4.2); Glucose 90 mg/dL (74-106); Potassium 3.8 mmol/L (3.5-5.1); Protein, Total 6.8 g/dL (6.4-8.2); Sodium Level 136 mmol/L (136-145)
[2020-07-17 14:30] LABS: Alcohol, Blood (Medical)-Serum < 3.0 mg/dL
[2020-07-17] MEDS: 0.9% Normal Saline 1,000 ML 999 ML IV ×2 (14:30→16:38)
[2020-07-17 14:44] LABS: Procalcitonin 0.11 ng/mL (0.00-0.09)
[2020-07-17 14:51] LABS: Mucous, Urine 0 SEEN /hpf (<or=2+)
[2020-07-17 15:05] LABS: Color, Urine Yellow (Yellow); Glucose, Dipstick Normal (Normal); Ketone-Dipstick 5 mg/dl (Negative); Leukocyte Esterase-Dipstick 25 /ul (Negative); Nitrite-Dipstick Negative (Negative); Occult Blood-Urine 25 /ul (Negative); Protein-Dipstick 15 mg/dl (Negative); Specific Gravity, Urine 1.025 (1.002-1.030); Urine Bilirubin Dipstick 3 mg/dL (Negative); Urine Clarity Clear (Clear); Urine Urobilinogen 1 mg/dl (Normal)
[2020-07-17 15:06] LABS: Amphetamine Urine VISTA NEGATIVE (<1000 ng/mL); Barbiturate Urine VISTA NEGATIVE (< 200 ng/mL); Benzodiazepine Urine VISTA NEGATIVE (< 200 ng/mL); Cocaine Urine VISTA NEGATIVE (< 300 ng/mL); Ecstacy Urine VISTA NEGATIVE (< 500 ng/mL); Methadone Urine VISTA NEGATIVE (< 300 ng/mL); PCP Urine VISTA NEGATIVE (< 25 ng/mL); THC Urine VISTA NEGATIVE (< 50 ng/mL); Vista UDS pH Range 5
[2020-07-17 15:07] LABS: Bacteria RARE /hpf (None Seen); Red Blood Cells-Urine 0-5 SEEN /hpf (0-5); Squamous Epithelial Cells - UA 0-5 SEEN /hpf (5-10); White Blood Cells 0-5 SEEN /hpf (0-5)
--- NOTE | 2020-07-17 16:25 | NURSING ---
DR CURT ALEMAN
[2020-07-17] MEDS: levETIRAcetam IV 1,000 MG/100 ML BAG 400 MG IV (16:34)
--- NOTE | 2020-07-17 16:40 | PCM.HP.STD ---
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 (5) Degeneration of intervertebral disc of lumbosacral region Status: Chronic (6) Radiculopathy of lumbosacral region Status: Chronic (7) Spondylosis of lumbosacral region without myelopathy or radiculopathy Status: Chronic (8) Lumbar facet arthropathy Status: Chronic (9) Bimalleolar fracture of right ankle Status: Resolved (10) Trimalleolar fracture of ankle, closed Status: Resolved Qualifiers: Encounter type: subsequent encounter Laterality: right Fracture healing: with routine healing Qualified Code(s): S82.851D - Displaced trimalleolar fracture of right lower leg, subsequent encounter for closed fracture with routine healing (11) Rosacea Status: Chronic (12) Chronic sinusitis Status: Chronic (13) Osteopenia Status: Chronic (14) Smoking greater than 40 pack years Status: Chronic (15) Hypersomnolence Status: Chronic (16) Neuropathy Status: Chronic (17) Vitamin D deficiency Status: Chronic (18) Asthma Status: Chronic (19) Seasonal allergies Status: Chronic (20) Femoral acetabular impingement Status: Resolved (21) Hyperlipidemia Status: Chronic (22) Seizure disorder Status: Chronic (23) Hypertension Status: Chronic (24) Chronic back pain Status: Chronic (25) Drug overdose Status: Resolved History of Present Illness Date of Admission: 07/17/20 Chief Complaint: Found unresponsive. The patient is a 60 year old F who presents emergency room after being found unresponsive. EMS arrived and patient was slumped over in her car. She would awaken periodically for EMS however noted to fall asleep during questioning. Upon exam in emergency room patient awakened briefly to sternal rub and states she got her hair done today. She then fell back asleep. Unable to obtain HPI from patient. Patient has had recurrent admissions for toxic encephalopathy secondary to polypharmacy/sedating regimen and failure to thrive/falls. She has a past medical history of chronic pain disorder, history of seizures, chronic intermittent asthma, hypertension, depression, GERD, hyperlipidemia. Per [facility] report, she is getting buprenorphine and Lyrica. Past Medical History Past Medical History (Chronic Problems): Chronic Problems (Last Reviewed 07/17/20 @ 17:[address] Carlitos Velázquez, DO) Failure to thrive (Chronic) Toxic encephalopathy (Chronic) Frequent falls (Chronic) Failed back syndrome of lumbar spine (Chronic) Degeneration of intervertebral disc of lumbosacral region (Chronic) Radiculopathy of lumbosacral region (Chronic) Spondylosis of lumbosacral region without myelopathy or radiculopathy (Chronic) Lumbar facet arthropathy (Chronic) Rosacea (Chronic) Chronic sinusitis (Chronic) Osteopenia (Chronic) Smoking greater than 40 pack years (Chronic) Hypersomnolence (Chronic) Neuropathy (Chronic) Vitamin D deficiency (Chronic) Asthma (Chronic) Seasonal allergies (Chronic) Hyperlipidemia (Chronic) Seizure disorder (Chronic) Hypertension (Chronic) Chronic back pain (Chronic) Medical History: Medical History (Last Reviewed 05/21/20 @ 15:[address] Carlitos Velázquez DO) Neuropathy (Chronic) G62.9 Vitamin D deficiency (Chronic) E55.9 History of seizures (Chronic) Z87.898 History of pneumonia (Inactive) Z87.01 Asthma (Chronic) J45.909 Seasonal allergies (Chronic) J30.2 Allergies Penicillins Adverse Reaction (Severe, Verified 07/17/20 13:44) vomiting aspirin Adverse Reaction (Verified 07/17/20 13:44) Upset Stomach HX OF ULCERS Home Medications: Ambulatory Orders Medication Instructions Recorded duloxetine 30 mg capsule,delayed 30 mg PO BID 02/02/19 release Escitalopram Oxalate [Lexapro] 20 mg PO DAILY 12/22/19 Fenofibrate Nanocrystallized 48 mg PO DAILY 12/22/19 [Tricor] Pravastatin Sodium 20 mg PO QHS 12/22/19 Buprenorphine 15 mcg TOPICAL QWEEK MDD thurs 05/23/20 Aripiprazole 5 mg PO DAILY 07/17/20 Baclofen 20 mg PO TID PRN 07/17/20 Buspirone HCl 5 mg PO TID 07/17/20 Lisinopril/Hydrochlorothiazide 1 ea PO DAILY 07/17/20 [Lisinopril-Hctz 20-25 mg Tab] Mirtazapine [Remeron] 15 mg PO QHS 07/17/20 Omeprazole 40 mg PO DAILY 07/17/20 Pregabalin 100 mg PO BID 07/17/20 Surgical History: Surgical History (Last Reviewed 05/21/20 @ 15:[address] Carlitos Velázquez, DO) H/O: hysterectomy Z90.710 History of back surgery Z98.890 1999, 2014 Surgical History: appendectomy, hysterectomy Psychiatric History: No pertinent psych hx PRIVATE DUTY AIDE History: No pertinent PRIVATE DUTY AIDE history Lives: Alone Smoking Status: Unknown if ever smoked - *Family History Maternal Family History: Family History (Last Reviewed 07/17/20 @ 16:52 by Yamileth Rodrigues NP, FENCE LABORER-C) Mother Breast cancer Hypertension Hyperlipemia Cancer ulcers Father Diabetes Myocardial infarction, Onset Age: 67 Hypertension Depression Sister Depression Hyperlipemia History Items: Hypertension Paternal Family History: Family History (Last Reviewed 07/17/20 @ 16:52 by Yamileth Rodrigues NP, FENCE LABORER-C) Mother Breast cancer Hypertension Hyperlipemia Cancer ulcers Father Diabetes Myocardial infarction, Onset Age: 67 Hypertension Depression Sister Depression Hyperlipemia Review of Systems Unable to obtain accurate/complete ROS d/t: Unable to obtain due to patient lethargy/altered mental status VTE Information - Inpt Only VTE Present on Admission: No VTE Mechan Device Prophylaxis: None VTE Pharm Prophylaxis ordered?: Yes - Physical Exam Vitals/I&O's: Vital Signs Temp Pulse Resp BP Pulse Ox 96.4 F L 58 L 16 103/60 97 07/17/20 16:02 07/17/20 16:02 07/17/20 16:02 07/17/20 16:02 07/17/20 16:02 Oxygen Flow Rate (L/min) 2 Oxygen Delivery Method Nasal Cannula Weight: 202 lb 9.677 oz Body Mass Index (BMI) 32.7 Intake and Output for Last 24 Hours 07/15/20 07/16/20 07/17/20 23:59 23:59 23:59 Intake Total 1000 / 1000 Balance 1000 / 1000 General: Lethargic, - - Arouses to noxious stimuli HEENT: Atraumatic, PERRLA, EOMI, Normocephalic Oral: Dry Mucosa Neck: Supple, No JVD, Negative Carotid Bruits Lungs: Diminished, Wheezes Cardiovascular: Regular Rhythm, No murmurs, Bradycardic Abdomen: Bowel Sounds Present, Soft, Non Tender, Non-Distended Extremities: No clubbing, No cyanosis, Capillary Refill Less than 3 Seconds, Edema - +1 bilateral lower extremity edema Skin: No rashes, No breakdown Musculoskeletal: No Tenderness to Palpation of Joints or Extremities Neurological: Cranial nerves II-XII grossly intact, Neuro grossly intact Psych/Mental Status: - - Unable to assess due to lethargy Laboratory Results 07/17/20 13:45: WBC 7.3, RBC 4.57, Hgb 12.7, Hct 39.4, MCV 86.2, MCH 27.8, MCHC 32.2, RDW Std Deviation 44.7 H, RDW Coeff of [place] 14.1, Plt Count 298, MPV 10.7, Immature Gran % (Auto) 0.300, Neut % (Auto) 57.0, Lymph % (Auto) 31.2, [place] % (Auto) 8.0, Eos % (Auto) 2.5, Baso % (Auto) 1.0, Absolute Neuts (auto) 4.2, Absolute Lymphs (auto) 2.29, Nucleated RBC % 0 07/17/20 13:45: Sodium 136, Potassium 3.8, Chloride 103, Carbon Dioxide 26.0, Anion Gap 7, BUN 21 H, Creatinine 1.71 H, Estim Creat Clear Calc 32.75, Est GFR (MDRD) Af Amer 39 L, Est GFR (MDRD) Non-Af 32 L, BUN/Creatinine Ratio 12.3, Glucose 90, Calcium 8.8, Total Bilirubin 0.50, AST 14 L, ALT 18, Alkaline Phosphatase 73, Troponin I < 0.015, Total Protein 6.8, Albumin 3.4, Globulin 3.4, Albumin/Globulin Ratio 1.0 07/17/20 13:45: Ethyl Alcohol < 3.0 07/17/20 13:45: Procalcitonin 0.11 H 07/17/20 14:15: Ammonia 17.0 07/17/20 14:15: Lactic Acid 1.0 07/17/20 14:45: Urine Opiates Screen NEGATIVE, Urine Methadone Screen NEGATIVE, Ur Barbiturates Screen NEGATIVE, Ur Phencyclidine Scrn NEGATIVE, Ur Amphetamines Screen NEGATIVE, U Methamphetamin-MDMA NEGATIVE, U Benzodiazepines Scrn NEGATIVE, Urine Cocaine Screen NEGATIVE, U Cannabinoids Screen NEGATIVE, Ur Drug Screen Comment 07/17/20 14:45: Urine Color Yellow, Urine Clarity Clear, Urine pH 5.0, Ur Specific [place] 1.025, Urine Protein 15 H, Urine Glucose (UA) Normal, Urine Ketones 5 H, Urine Occult Blood 25 H, Urine Nitrite Negative, Urine Bilirubin 3 H, Urine Urobilinogen 1 H, Ur Leukocyte Esterase 25 H, Urine RBC 0-5 SEEN, Urine WBC 0-5 SEEN, Ur Squamous Epith Cells 0-5 SEEN, Urine Bacteria RARE, Urine Mucus 0 SEEN Current Medications Sodium Chloride () 1,000 mls @ 999 mls/hr IV .Q1H1M ONE Stop: 07/17/20 17:19 Last Admin: 07/17/20 16:38 Dose: 999 mls/hr Documented by: Assessment/Plan All Active Problems (Last Reviewed 07/17/20 @ 17:[address] Carlitos Velázquez DO) Trimalleolar fracture of ankle, closed (Resolved) Bimalleolar fracture of right ankle (Resolved) Drug overdose (Resolved) Femoral acetabular impingement (Resolved) Morbid obesity (Resolved) Pericardial effusion (Resolved) 1. Altered mental status/lethargy, suspect toxic encephalopathy-brain CT in ER normal. Obtain MRI of brain and EEG. Pending results, consider neurology consult if not improved or abnormal imaging/EEG. Hold sedating regimen. Tox screen negative. PT/OT. 2. Acute kidney injury-IV fluids, trend BMP. 3. Polypharmacy, chronic pain disorder-hold buprenorphine patch, baclofen, Lyrica. 4. History of seizures-not on antiepileptic regimen. No evidence of seizure activity currently. EEG ordered. 5. Chronic intermittent asthma-no exacerbation. As needed albuterol aerosol. 6. Hypertension-hold lisinopril/HCTZ. 7. Depression-patient on Abilify, buspirone, duloxetine, Lexapro, Remeron. Hold medications until more alert. 8. GERD-continue PPI. 9. Hyperlipidemia-continue statin, fenofibrate. DVT prophylaxis-Lovenox subcu This patient was seen by Yamileth Rodrigues NP-C under the supervision of Dr. Velázquez. <Carlitos Velázquez - Last Filed: 07/17/20 17:43> History of Present Illness The patient is a 60 year old F found unresponsive by EMS in her car. Patient would periodically awake. Patient did receive a several rounds of naloxone without any relief of the confusion. Patient was started on levetiracetam given the patient's history of seizures. Patient is still somnolent and does not respond to noxious nor verbal stimuli. [] Past Medical History Medical History: Medical History (Last Reviewed 07/17/20 @ 17:[address] Carlitos Velázquez DO) Neuropathy (Chronic) G62.9 Vitamin D deficiency (Chronic) E55.9 Asthma (Chronic) J45.909 Seasonal allergies (Chronic) J30.2 Allergies Penicillins Adverse Reaction (Severe, Verified 07/17/20 13:44) vomiting aspirin Adverse Reaction (Verified 07/17/20 13:44) Upset Stomach HX OF ULCERS Surgical History: Surgical History (Last Reviewed 07/17/20 @ 17:[address] Carlitos Velázquez DO) H/O: hysterectomy Z90.710 History of back surgery Z98.890 1999, 2014 Surgical History: appendectomy, hysterectomy Psychiatric History: No pertinent psych hx PRIVATE DUTY AIDE History: No pertinent PRIVATE DUTY AIDE history Lives: Alone Smoking Status: Unknown if ever smoked - *Family History Maternal Family History: Family History (Last Reviewed 07/17/20 @ 17:[address] Carlitos Velázquez DO) Mother Breast cancer Hypertension Hyperlipemia Cancer ulcers Father Diabetes Myocardial infarction, Onset Age: 67 Hypertension Depression Sister Depression Hyperlipemia Paternal Family History: Family History (Last Reviewed 07/17/20 @ 17:[address] Carlitos Velázquez DO) Mother Breast cancer Hypertension Hyperlipemia Cancer ulcers Father Diabetes Myocardial infarction, Onset Age: 67 Hypertension Depression Sister Depression Hyperlipemia VTE Information - Inpt Only VTE Present on Admission: No VTE Mechan Device Prophylaxis: None VTE Pharm Prophylaxis ordered?: Yes - Physical Exam Vitals/I&O's: Vital Signs Temp Pulse Resp BP Pulse Ox 35.8 C L 57 L 12 85/55 L 97 07/17/20 16:02 07/17/20 17:11 07/17/20 17:11 07/17/20 17:11 07/17/20 17:11 Oxygen Flow Rate (L/min) 2 Oxygen Delivery Method Nasal Cannula Weight: 91.9 kg Body Mass Index (BMI) 32.7 Intake and Output for Last 24 Hours 07/15/20 07/16/20 07/17/20 23:59 23:59 23:59 Intake Total 2099 Balance 2099 General: Lethargic, - HEENT: Atraumatic, PERRLA, Normocephalic, - - Corneal reflex intact Lungs: Diminished, Wheezes Cardiovascular: Regular Rhythm, No murmurs, Bradycardic Abdomen: Bowel Sounds Present, Soft, Non Tender, Non-Distended Extremities: No clubbing, No cyanosis, Capillary Refill Less than 3 Seconds, Edema Skin: No rashes, No breakdown Musculoskeletal: No Tenderness to Palpation of Joints or Extremities Psych/Mental Status: - Laboratory Results 07/17/20 13:45: WBC 7.3, RBC 4.57, Hgb 12.7, Hct 39.4, MCV 86.2, MCH 27.8, MCHC 32.2, RDW Std Deviation 44.7 H, RDW Coeff of [place] 14.1, Plt Count 298, MPV 10.7, Immature Gran % (Auto) 0.300, Neut % (Auto) 57.0, Lymph % (Auto) 31.2, [place] % (Auto) 8.0, Eos % (Auto) 2.5, Baso % (Auto) 1.0, Absolute Neuts (auto) 4.2, Absolute Lymphs (auto) 2.29, Nucleated RBC % 0 07/17/20 13:45: Sodium 136, Potassium 3.8, Chloride 103, Carbon Dioxide 26.0, Anion Gap 7, BUN 21 H, Creatinine 1.71 H, Estim Creat Clear Calc 32.75, Est GFR (MDRD) Af Amer 39 L, Est GFR (MDRD) Non-Af 32 L, BUN/Creatinine Ratio 12.3, Glucose 90, Calcium 8.8, Total Bilirubin 0.50, AST 14 L, ALT 18, Alkaline Phosphatase 73, Troponin I < 0.015, Total Protein 6.8, Albumin 3.4, Globulin 3.4, Albumin/Globulin Ratio 1.0 07/17/20 13:45: Ethyl Alcohol < 3.0 07/17/20 13:45: Procalcitonin 0.11 H 07/17/20 14:15: Ammonia 17.0 07/17/20 14:15: Lactic Acid 1.0 07/17/20 14:45: Urine Opiates Screen NEGATIVE, Urine Methadone Screen NEGATIVE, Ur Barbiturates Screen NEGATIVE, Ur Phencyclidine Scrn NEGATIVE, Ur Amphetamines Screen NEGATIVE, U Methamphetamin-MDMA NEGATIVE, U Benzodiazepines Scrn NEGATIVE, Urine Cocaine Screen NEGATIVE, U Cannabinoids Screen NEGATIVE, Ur Drug Screen Comment 07/17/20 14:45: Urine Color Yellow, Urine Clarity Clear, Urine pH 5.0, Ur Specific [place] 1.025, Urine Protein 15 H, Urine Glucose (UA) Normal, Urine Ketones 5 H, Urine Occult Blood 25 H, Urine Nitrite Negative, Urine Bilirubin 3 H, Urine Urobilinogen 1 H, Ur Leukocyte Esterase 25 H, Urine RBC 0-5 SEEN, Urine WBC 0-5 SEEN, Ur Squamous Epith Cells 0-5 SEEN, Urine Bacteria RARE, Urine Mucus 0 SEEN Assessment/Plan Patient seen and examined independently. Data reviewed. I agree with the above note by the nurse practitioner. 1. Change in mental status: Etiology unclear. Could be toxic encephalopathy though patient did not have any significant response with naloxone. Urine drug screen was unremarkable that does not rule out synthetic drugs. Concern for underlying seizures. Patient has no evidence of any tonic-clonic activity. Plan is for an MRI and EEG and based on the results of that then to consult neurology. Given that we cannot rule out seizures would continue with the levetiracetam. Ammonia level was normal. Potentiating medications will be held, including baclofen, buprenorphine, BuSpar, duloxetine, escitalopram, Remeron. Inpatient E&M: [id number] Init Hosp L3
--- NOTE | 2020-07-17 17:40 | NURSING ---
PCU ALTERED MENTAL STATUS CURT
[2020-07-17] MEDS: 0.9% Normal Saline 1,000 ML 100 ML IV (20:56)
--- NOTE | 2020-07-17 22:42 | PCS.PANDOC ---
PANDEMIC DOCUMENTATION INITIATED: Date: 07/17/2020 Time: 1950
[2020-07-18 00:10] VITALS: BP 104/62; PULSE 60; RESP 18; TEMP 36.6; O2SAT 98
[2020-07-18 03:00] VITALS: PULSE 73
[2020-07-18 04:50] LABS: Absolute Lymphocyte Count 1.47 X10^3/uL (0.83-4.51); Absolute Neutrophil Count 4.7 X10^3/uL (2.0-7.7); Basophil# 0.05 X10^3/uL; Basophil% 0.7 % (0-1); Eosinophil# 0.15 X10^3/uL; Eosinophils% 2.2 % (0-5); Hematocrit 34.1 % (37-47); Hemoglobin 10.7 g/dL (12.0-15.0); Lymphocyte # 1.47 X10^3/ul (4.0); Lymphocyte % 21.3 % (19-41); Mean Corp Hgb Conc 31.4 g/dL (32-36); Mean Corpuscular Hgb 27.2 pg (27.0-32.0); Mean Corpuscular Volume 86.8 fL (81-99); Mean Platelet Vol. 10.6 fl (6.2-12.0); Monocyte# 0.51 X10^3/uL; Monocyte% 7.4 % (0-10); NRBC Flagged by Analyzer 0 % (0-5); Neutrophil % 68.1 % (47-70); Platelet Count 259 K/mm3 (150-450); RBC Distribution Width CV 14.2 % (11.6-14.6); RBC Distribution Width SD 45.1 fl (35.1-43.9); Red Blood Count 3.93 M/mm3 (4.2-5.4); White Blood Count 6.9 K/mm3 (4.4-11.0)
[2020-07-18 05:14] LABS: Anion Gap 5 (5-15); BUN 16 mg/dL (7-18); BUN/Creat Ratio 19.6 RATIO (10-20); Calcium,Total 7.9 mg/dL (8.5-10.1); Chloride 113 mmol/L (98-107); Creatinine, Serum 0.82 mg/dL (0.55-1.02); EST Glomerular Filtration Rate 76 mL/min (>60); Est Glom Filt Rate - Afr Amer 92 mL/min (>60); Glucose 87 mg/dL (74-106); Potassium 3.6 mmol/L (3.5-5.1); Sodium Level 142 mmol/L (136-145)
[2020-07-18 06:10] VITALS: BP 149/61; PULSE 66; RESP 18; TEMP 36.7; O2SAT 95
[2020-07-18] MEDS: 0.9% Normal Saline 1,000 ML 100 ML IV (06:33)
[2020-07-18 07:00] VITALS: PULSE 72
--- NOTE | 2020-07-18 09:00 | MRI_ITS ---
STUDY: MRI BRAIN WITHOUT CONTRAST REASON FOR EXAM: Female, 60 years old. decreased level of consciousness TECHNIQUE: Standardized multiplanar fat and water weighted pulse sequences were obtained. COMPARISON: Head CT dated July 17, 2020 FINDINGS: Normal size of the ventricles and extra-axial spaces for the patient''s age. Normal white matter tracts of the supratentorial brain. There is no evidence for recent intracranial ischemia or other cause of cytotoxic edema on diffusion weighted imaging (DWI). Normal T2* images of the brain without demonstrated susceptibility artifact. There is no demonstrated hemosiderin stain. Normal bilateral basal ganglia. Normal thalami. There is no extra-axial fluid accumulation. Normal flow voids within the major intracranial circulation suggesting patency by spin echo criteria. Normal sella turcica, pituitary gland, infundibular stalk, optic chiasm and hypothalamus. Normal tectal plate and pineal gland. Normal midbrain, ricardo and medulla. Normal cerebellum. Normal basal cisterns. Normal bilateral temporal bones. Normal bilateral internal auditory canals. No demonstrated orbital abnormality, within the constraints of a routine brain study. Normal visualized paranasal sinuses. Normal calvarium and skull base. Normal visualized soft tissue structures. Normal visualized upper cervical spine. MRI/Brain without Contrast IMPRESSION: 1. No demonstrated acute or septic intracranial process. Electronically Signed: Gordon Lawton MD at 12:23 EST , Service support ,
[2020-07-18] MEDS: Enoxaparin 40 MG/0.4 ML Syringe SC (09:40)
[2020-07-18 12:10] VITALS: BP 146/76; PULSE 84; RESP 16; TEMP 36.7; O2SAT 95
--- NOTE | 2020-07-18 14:44 | TELEMED_ITS ---
[facility] has confirmed receipt of a request for visit. This document confirms receipt of the order initiating the consult. To find the results of the consultation, please view the patient's reports for the scanned Telemed Consult.
[2020-07-18] MEDS: Acetaminophen 325 MG Tablet 650 MG PO (14:57)
--- NOTE | 2020-07-18 15:35 | DCINST_ITS ---
- Discharge Diagnoses Current Active Problems: Current Active and Chronic Problems (Last Reviewed 07/17/20 @ 17:[address] Carlitos Velázquez, DO) Failure to thrive (Chronic) Toxic encephalopathy (Chronic) Frequent falls (Chronic) Failed back syndrome of lumbar spine (Chronic) Degeneration of intervertebral disc of lumbosacral region (Chronic) Radiculopathy of lumbosacral region (Chronic) Spondylosis of lumbosacral region without myelopathy or radiculopathy (Chronic) Lumbar facet arthropathy (Chronic) Rosacea (Chronic) Chronic sinusitis (Chronic) Osteopenia (Chronic) Smoking greater than 40 pack years (Chronic) Hypersomnolence (Chronic) Neuropathy (Chronic) Vitamin D deficiency (Chronic) Asthma (Chronic) Seasonal allergies (Chronic) Hyperlipidemia (Chronic) Seizure disorder (Chronic) Hypertension (Chronic) Chronic back pain (Chronic) You will use the following diet at home:: No restrictions Discharge Activity: - - May not drive until follow up with PCP, pain management Call your doctor if you observe: Shortness of breath, Dizziness, Fainting spells, Chest pain Additional Instructions: Your baclofen was reduced to 10 mg 3 times daily, only use as needed. Allergies/Adverse Reactions: Allergies Penicillins Adverse Reaction (Severe, Verified 07/17/20 13:44) vomiting aspirin Adverse Reaction (Verified 07/17/20 13:44) Upset Stomach HX OF ULCERS Medications to take at Discharge duloxetine 30 mg capsule,delayed release 30 mg PO BID 02/02/19 Escitalopram Oxalate [Lexapro] 20 mg PO DAILY 12/22/19 Fenofibrate Nanocrystallized [Tricor] 48 mg PO DAILY 12/22/19 Pravastatin Sodium 20 mg PO QHS 12/22/19 Buprenorphine 15 mcg TOPICAL QWEEK MDD thurs 05/23/20 Aripiprazole 5 mg PO DAILY 07/17/20 Buspirone HCl 5 mg PO TID 07/17/20 Lisinopril/Hydrochlorothiazide [Lisinopril-Hctz 20-25 mg Tab] 1 ea PO DAILY 07/17/20 Mirtazapine [Remeron] 15 mg PO QHS 07/17/20 Omeprazole 40 mg PO DAILY 07/17/20 Pregabalin 100 mg PO BID 07/17/20 Baclofen 10 mg PO TID PRN #0 07/18/20 Primary Care Physician: Marlen Lucia MD [Primary Care Provider] - Please follow up with your Primary Care Physician in: 3-5 Days Test Results: Test results from this visit will be discussed in further detail at your follow- up appointment, if applicable. Please Follow Up With: Al Gregory DO When: 3-5 Days Proposed Discharge Date: 07/18/20
--- NOTE | 2020-07-18 15:38 | DS.PCM_ITS ---
Discharge Date and Diagnosis Date of Admission: 07/17/20 Date of Discharge: 07/18/20 - Primary Discharge Diagnosis Acute Problems: 1. Altered mental status/lethargy, toxic encephalopathy secondary to polypharmacy 2. Acute kidney injury 3. Polypharmacy, chronic pain disorder 4. History of seizures 5. Chronic intermittent asthma 6. Hypertension 7. Depression 8. GERD 9. Hyperlipidemia - Secondary Discharge Diagnosis Chronic Problems: Chronic Problems (Last Reviewed 07/17/20 @ 17:[address] Carlitos Velázquez, DO) Failure to thrive (Chronic) Toxic encephalopathy (Chronic) Frequent falls (Chronic) Failed back syndrome of lumbar spine (Chronic) Degeneration of intervertebral disc of lumbosacral region (Chronic) Radiculopathy of lumbosacral region (Chronic) Spondylosis of lumbosacral region without myelopathy or radiculopathy (Chronic) Lumbar facet arthropathy (Chronic) Rosacea (Chronic) Chronic sinusitis (Chronic) Osteopenia (Chronic) Smoking greater than 40 pack years (Chronic) Hypersomnolence (Chronic) Neuropathy (Chronic) Vitamin D deficiency (Chronic) Asthma (Chronic) Seasonal allergies (Chronic) Hyperlipidemia (Chronic) Seizure disorder (Chronic) Hypertension (Chronic) Chronic back pain (Chronic) Hospital Course and Treatment Imaging Results: Diagnostic Data Brain CT 07/17/20 13:52 IMPRESSION: Normal unenhanced CT scan of the brain. Electronically Signed: Kody Lakhani, at 14:30 EST , Service support , Chest X-Ray 07/17/20 13:52 IMPRESSION: No acute abnormality is seen. Electronically Signed: Kody Lakhani, at 14:30 EST , Service support , Brain MRI 07/18/20 09:00 IMPRESSION: 1. No demonstrated acute or septic intracranial process. Electronically Signed: Gordon Lawton MD at 12:23 EST , Service support , Operations: None Procedures: None Summary of Care Provided: The patient is a 60 year old F admitted 07/17/2020 due to change in mental status. 1. Altered mental status/lethargy, toxic encephalopathy-brain CT normal. MRI negative. EEG completed. Patient refuses to stay for results. Patient's mental status at baseline following holding home sedating regimen. Patient states she normally takes baclofen as needed and over the past 2 days had taken 20 mg twice daily. Patient adamantly requesting discharge home. Discussed decreasing baclofen to 10 mg and taking only as needed. Follow-up with PCP and pain management. Recommend following up with primary neurologist as well. 2. Acute kidney injury-resolved with IV fluids. 3. Polypharmacy, chronic pain disorder-on buprenorphine, baclofen, Lyrica. Baclofen decreased as noted above. 4. History of seizures-not on antiepileptic regimen. No evidence of seizure activity currently. EEG completed, report pending at discharge. Patient refused to stay in hospital for results. 5. Chronic intermittent asthma-no exacerbation. As needed albuterol aerosol. 6. Hypertension-hold lisinopril/HCTZ. 7. Depression-patient on Abilify, buspirone, duloxetine, Lexapro, Remeron. 8. GERD-continue PPI. 9. Hyperlipidemia-continue statin, fenofibrate. General: Alert, oriented HEENT: Atraumatic, PERRLA, EOMI, Normocephalic Oral: Dry Mucosa Neck: Supple, No JVD, Negative Carotid Bruits Lungs: Diminished, clear to auscultation Cardiovascular: Regular Rhythm, No murmurs, Bradycardic Abdomen: Bowel Sounds Present, Soft, Non Tender, Non-Distended Extremities: No clubbing, No cyanosis, Capillary Refill Less than 3 Seconds, Edema - +1 bilateral lower extremity edema Skin: No rashes, No breakdown Musculoskeletal: No Tenderness to Palpation of Joints or Extremities Neurological: Cranial nerves II-XII grossly intact, Neuro grossly intact Psych/Mental Status: Normal affect Patient seen and examined prior to discharge. Physical assessment as noted above. Patient is stable for discharge with follow up recommendations as noted above. This patient was seen by LACEY Vega under the supervision of Dr. Robert. - Physical Exam Vitals/I&O's: Vital Signs Temp Pulse Resp BP Pulse Ox 98.1 F 84 16 146/76 H 95 07/18/20 12:10 07/18/20 12:10 07/18/20 12:10 07/18/20 12:10 07/18/20 12:10 Oxygen Flow Rate (L/min) 2 Oxygen Delivery Method Room Air Weight: 197 lb 15.602 oz Body Mass Index (BMI) 31.9 Intake and Output for Last 24 Hours 07/16/20 07/17/20 07/18/20 23:59 23:59 23:59 Intake Total 3388.33 / 3388.33 1218.33 / 1218.33 Output Total 1400 / 1400 525 / 525 Balance 1987.33 / 1987.33 693.33 / 693.33 Laboratory Results 07/18/20 04:14: Sodium 142, Potassium 3.6, Chloride 113 H, Carbon Dioxide 24.0, Anion Gap 5, BUN 16, Creatinine 0.82, Estim Creat Clear Calc 68.30, Est GFR (MDRD) Af Amer 92, Est GFR (MDRD) Non-Af 76, BUN/Creatinine Ratio 19.6, Glucose 87, Calcium 7.9 L 07/18/20 04:14: WBC 6.9, RBC 3.93 L, Hgb 10.7 L, Hct 34.1 L, MCV 86.8, MCH 27.2, MCHC 31.4 L, RDW Std Deviation 45.1 H, RDW Coeff of Dyana 14.2, Plt Count 259, MPV 10.6, Immature Gran % (Auto) 0.300, Neut % (Auto) 68.1, Lymph % (Auto) 21.3, Bowie % (Auto) 7.4, Eos % (Auto) 2.2, Baso % (Auto) 0.7, Absolute Neuts (auto) 4.7, Absolute Lymphs (auto) 1.47, Nucleated RBC % 0 Current Medications Acetaminophen (Acetaminophen 325 Mg Tablet) 650 mg PO Q6H PRN PRN PRN Reason: Pain 1-10 or Fever Last Admin: 07/18/20 14:57 Dose: 650 mg Documented by: Enoxaparin Sodium (Enoxaparin 40 Mg/0.4 Ml Syringe) 40 mg SC DAILY MAURIZIO Last Admin: 07/18/20 09:40 Dose: 40 mg Documented by: Sodium Chloride () 1,000 mls @ 100 mls/hr IV .Q10H [facility] Last Admin: 07/18/20 06:33 Dose: 100 mls/hr Documented by: Levetiracetam 500 mg/ Sodium (Chloride) 105 mls @ 400 mls/hr IV Q12 [facility] Last Infusion: 07/18/20 09:56 Dose: Infused Documented by: Sodium Chloride (0.9% Saline Lock 10 Ml Syringe) 10 - 40 ml IV UD PRN PRN Reason: SALINE FLUSH Discharge Diet: No Restrictions Discharge Activity: - - May not drive until follow up with PCP, pain management Call your doctor if you observe: Shortness of breath, Dizziness, Fainting spells, Chest pain Home Medications: Medications to take at Discharge duloxetine 30 mg capsule,delayed release 30 mg PO BID 02/02/19 Escitalopram Oxalate [Lexapro] 20 mg PO DAILY 12/22/19 Fenofibrate Nanocrystallized [Tricor] 48 mg PO DAILY 12/22/19 Pravastatin Sodium 20 mg PO QHS 12/22/19 Buprenorphine 15 mcg TOPICAL QWEEK MDD thurs 05/23/20 Aripiprazole 5 mg PO DAILY 07/17/20 Buspirone HCl 5 mg PO TID 07/17/20 Lisinopril/Hydrochlorothiazide [Lisinopril-Hctz 20-25 mg Tab] 1 ea PO DAILY 07/17/20 Mirtazapine [Remeron] 15 mg PO QHS 07/17/20 Omeprazole 40 mg PO DAILY 07/17/20 Pregabalin 100 mg PO BID 07/17/20 Baclofen 10 mg PO TID PRN #0 07/18/20 Primary Care Physician: Marlen Lucia MD [Primary Care Provider] - Please follow up with your Primary Care Physician in: 3-5 Days Please Follow Up With: Al Gregory DO When: 3-5 Days Disposition: Home Minutes spent on discharge:: 35 Patient Condition:: Stable Medical Necessity - Tobacco Use Smoking Status: Current some day smoker Tobacco Use: Cigarettes Meaningful Use Info Meaningful Use Diagnoses (Choose all that apply): None applicable
--- NOTE | 2020-07-18 15:50 | NURSING ---
Patient removed IV and heart monitor. Discharged from [facility] at this time and is transported via private vehicle. Accompanied by friend. Discharge paperwork and teaching provided and patient verbalized understanding.
== END 2020-07-18 15:48 | disposition home or self-care (01) ==
LOC: ED 13:59 → PCU 07-18 06:24
PROVIDERS: Nurse Practitioner Family; Emergency Provider Student in an Organized Health Care Education/Training Program; PCP Internal Medicine; Visit Provider Internal Medicine
DX: G92 Toxic encephalopathy (principal); N17.9 Acute kidney failure, unspecified; G89.29 Other chronic pain; I10 Essential (primary) hypertension; K21.9 Gastro-esophageal reflux disease without esophagitis; E78.5 Hyperlipidemia, unspecified; F32.9 Major depressive disorder, single episode, unspecified; J45.20 Mild intermittent asthma, uncomplicated; Z79.899 Other long term (current) drug therapy; F17.210 Nicotine dependence, cigarettes, uncomplicated; M51.17 Intervertebral disc disorders with radiculopathy, lumbosacral region; R29.6 Repeated falls; G62.9 Polyneuropathy, unspecified; G40.909 Epilepsy, unspecified, not intractable, without status epilepticus
CPT/HCPCS: 51702; 70450; 70551; 71045; 80048; 80053; 80307; 81001; 82077; 82140; 83605; 84145; 84484; 85025; 87040; 93005; 95819; 96361; 96365; 96366; 96372; 96375; 99218; 99285; 99406; J7030; J7050; A4216; G0378; J2310

== ENCOUNTER 2020-08-09 08:58 | Emergency (ER) | payer MEDICAID, SELFPAY ==
[2020-07-24 13:46] VITALS: BMI 32.3
[2020-08-09 08:59] VITALS: BP 120/64; PULSE 73; RESP 20; TEMP 36.2; O2SAT 98; BMI 31.7
[2020-08-09 09:02] VITALS: O2SAT 98
--- NOTE | 2020-08-09 09:09 | RAD_ITS ---
STUDY: X-RAY - RIGHT SHOULDER REASON FOR EXAM: Female, 60 years old. FALL -- SHOULDER PAIN TECHNIQUE: 3 view(s) of the shoulder. COMPARISON: None. FINDINGS: Normal glenohumeral articulation. Normal acromioclavicular joint. Normal acromion. Normal humeral head and visualized proximal humerus. The soft tissue structures are unremarkable. Normal visualized pulmonary apex. RAD/Shoulder min 2 Views IMPRESSION: Normal x-ray examination of the shoulder. Electronically Signed: Stephany Buckley MD at 9:59 EST Tel , Service support ,
--- NOTE | 2020-08-09 09:09 | CT_ITS ---
STUDY: CT BRAIN WITHOUT CONTRAST REASON FOR EXAM: Female, 60 years old. Fell today, hematoma to top of head, no LOC. Hx hypertension, seizures. RADIATION DOSAGE (If Supplied By Facility): CTDIvol = ( 44.99 ) mGy, DLP = ( 796.11 ) mGycm TECHNIQUE: Transaxial CT imaging of the brain was performed without administration of intravenous contrast material. Individualized dose optimization techniques were used for this CT. COMPARISON: CT head 07/17/2020 FINDINGS: Small scalp soft tissue swelling and subcutaneous hematoma at the vertex. Normal calvarium. Normal size ventricles and extra-axial spaces for the patient''s age. Normal white matter tracts of the cerebral hemispheres. Normal basal ganglia and thalami. Normal brainstem. Normal cerebellum. There is no intracranial hemorrhage. There are no findings of an acute ischemic infarction. Normal visualized paranasal sinuses. CT/Brain/Head without Contrast IMPRESSION: Small scalp soft tissue swelling and subcutaneous hematoma at the vertex. No acute intracranial pathology. Electronically Signed: Stephany Buckley MD at 9:39 EST Tel , Service support ,
--- NOTE | 2020-08-09 09:09 | CT_ITS ---
STUDY: CT CERVICAL SPINE WITHOUT CONTRAST REASON FOR EXAM: Female, 60 years old. Fell today, hematoma to top of head, no LOC. Hx hypertension, seizures. RADIATION DOSAGE (If Supplied By Facility): CTDIvol = ( 23.88 ) mGy, DLP = ( 472.54 ) mGycm TECHNIQUE: High resolution transaxial imaging was performed without contrast material. Sagittal and coronal images were reconstructed. Individualized dose optimization techniques were used for this CT. COMPARISON: CT cervical spine 05/21/2020 FINDINGS: Normal craniovertebral junction. Normal anterior atlantoaxial articulation. Normal odontoid process. There is straightening of the normal cervical lordosis. Normal vertebral bodies and posterior osseous elements. No acute fracture or subluxation. Normal visualized soft tissue structures. There is mild right and moderate left carotid bulb atherosclerotic disease. CT/Spine Cervical without Contras IMPRESSION: No acute fracture or subluxation. Straightening of the cervical lordosis, this may be positional or due to muscle spasm. Electronically Signed: Stephany Buckley MD at 9:49 EST Tel , Service support ,
--- NOTE | 2020-08-09 09:12 | ED.VISSUMM ---
- ER Visit Summary Date of Service: 08/09/20 Chief Complaint: Fall History of Present Illness: The patient is a 60 F who felt shaky when she woke up this morning. She fell and hit her head. She did not lose consciousness. I did not feel like her typical seizures. She has been compliant with her medications. She is not on blood thinners. She has no associated symptoms like vomiting, vision changes, epistaxis, ear drainage, or any other symptoms related to hitting her head. She complains of some neck and back pain. She said the back pain is chronic and does not feel different from her baseline. She denies any new neurologic symptoms like weakness or numbness. She does have some right shoulder pain which is new. She also reports right ankle pain which is not new. Although she felt shaky, now she is feeling better. She feels safe at home. Physical Examination: Afebrile and vital signs are unremarkable. She has a posterior scalp hematoma. No bleeding. C-collar is in place. HEENT exam otherwise unremarkable. Cranial nerves grossly intact. Good strength and sensation, symmetric bilaterally. Right shoulder diffusely tender to palpation without other abnormality. Good range of motion. Neurovascular intact distally. Heart regular. Lungs clear. Abdomen soft. Lower extremities are unremarkable. Test Results: CT brain and cervical spine are pending. X-ray shoulder pending. Emergency Department Course and Treatment: Patient treated with oxycodone while awaiting results. I have low suspicion for any significant injury. Will await imaging and reassess. Patient has a scalp hematoma, but otherwise her imaging is unremarkable. I was able to clear her cervical collar. She has pain medicine at home and will be discharged. Treatment Plan: As above Disposition: Discharge Impression: 1. Concussion, 2. Right shoulder pain This note was generated with [employer] dictation software. It may contain incorrect words, spelling, and punctuation that were not noted in review of the chart prior to signing ED Disposition - Plan for ED Patient: Referrals: Marlen Lucia MD [STAFF PHYSICIAN] -
[2020-08-09] MEDS: oxyCODONE 5 MG Tablet 10 MG PO (10:05)
--- NOTE | 2020-08-09 10:11 | ED.DEP ---
ED Disposition - Plan for ED Patient: Instructions: ED Fall Prevention Referrals: Marlen Lucia MD [STAFF PHYSICIAN] -
[2020-08-09 10:23] VITALS: BP 138/74; PULSE 72; RESP 16; O2SAT 98
== END 2020-08-09 10:31 | disposition home or self-care (01) ==
LOC: ED 09:52
PROVIDERS: Emergency Provider Emergency Medicine; PCP Internal Medicine
DX: S06.0X0A Concussion without loss of consciousness, initial encounter (principal); S00.03XA Contusion of scalp, initial encounter; M54.2 Cervicalgia; M25.511 Pain in right shoulder; M25.571 Pain in right ankle and joints of right foot; W19.XXXA Unspecified fall, initial encounter; Y93.9 Activity, unspecified; Y92.9 Unspecified place or not applicable; Y99.9 Unspecified external cause status; M54.9 Dorsalgia, unspecified; G89.29 Other chronic pain; R56.9 Unspecified convulsions; J45.909 Unspecified asthma, uncomplicated; Z72.0 Tobacco use; Z79.899 Other long term (current) drug therapy
CPT/HCPCS: 70450; 72125; 73030; 99284

== ENCOUNTER → 2020-08-14 10:42 | Outpatient (CLI) | payer MEDICAID, SELFPAY ==
[2020-08-14 11:25] LABS: Absolute Lymphocyte Count 2.52 X10^3/uL (0.83-4.51); Basophil# 0.08 X10^3/uL; Basophil% 0.9 % (0-1); Eosinophil# 0.25 X10^3/uL; Eosinophils% 2.9 % (0-5); Hematocrit 37.5 % (37-47); Hemoglobin 11.8 g/dL (12.0-15.0); Lymphocyte # 2.52 X10^3/ul (4.0); Lymphocyte % 29.2 % (19-41); Mean Corp Hgb Conc 31.5 g/dL (32-36); Mean Corpuscular Hgb 26.9 pg (27.0-32.0); Mean Corpuscular Volume 85.4 fL (81-99); Mean Platelet Vol. 10.8 fl (6.2-12.0); Monocyte# 0.73 X10^3/uL; Monocyte% 8.5 % (0-10); NRBC Flagged by Analyzer 0 % (0-5); Neutrophil # 5.01 X10^3/uL (2.7-7.7); Platelet Count 267 K/mm3 (150-450); RBC Distribution Width CV 15.3 % (11.6-14.6); RBC Distribution Width SD 47.7 fl (35.1-43.9); Red Blood Count 4.39 M/mm3 (4.2-5.4); White Blood Count 8.6 K/mm3 (4.4-11.0)
[2020-08-14 11:42] LABS: T4 Free Direct 0.97 ng/dL (0.76-1.46); Thyroid Stim Hormone (TSH) 0.92 uIU/mL (0.358-3.74)
== END ==
PROVIDERS: PCP Internal Medicine; Referring Provider Internal Medicine; Visit Provider Internal Medicine
DX: R25.1 Tremor, unspecified (principal)
CPT/HCPCS: 36415; 82140; 84439; 84443; 85025

== ENCOUNTER 2020-11-12 13:27 | Day surgery (SDC) | payer MEDICAID, SELFPAY ==
[2020-10-05 14:10] VITALS: BMI 32.9
[2020-11-12] VITALS (9 sets, daily range): BP systolic 130–152; BP diastolic 81–98; PULSE 71–79; RESP 18–20; TEMP 36.1–36.9; O2SAT 92–98; BMI 34.1
--- NOTE | 2020-11-12 14:31 | RAD_ITS ---
PROCEDURE: Caudal epidural steroid injection. DATE OF EXAMINATION: 11/12/2020. INDICATION: Female, 60 years old. Chronic low back pain. FLUOROSCOPY TIME (if supplied): (8 seconds) minutes/seconds. One image was obtained. Intraoperative imaging provided for caudal epidural steroid injection. RAD/Fluor Guidance for Spine Inj IMPRESSION: Intraoperative imaging provided for caudal epidural steroid injection. Electronically Signed: Kody Lakhani MD at 13:44 EDT , Service support ,
[2020-11-12] MEDS: MethylPREDNISolone Acetate 80 MG/ML Vial (14:34)
[2020-11-12] MEDS: 0.9% Normal Saline (Pres. free 10 ML Vial (14:35)
[2020-11-12] MEDS: Bupivacaine 0.25% 30 ML Vial (14:35)
[2020-11-12] MEDS: Lidocaine 1% (5 ml sdv) 5 ML Vial (14:36)
--- NOTE | 2020-11-12 14:46 | OP.PCM_ITS ---
Report of Operation Date of Procedure: 11/12/20 Pre-Operative Diagnosis: Lumbosacral radiculopathy, lumbosacral degenerative di sc disease, lumbosacral spinal stenosis Post-Operative Diagnosis: Lumbosacral radiculopathy, lumbosacral degenerative disc disease, lumbosacral spinal stenosis Surgery/Procedure Performed:: Caudal epidural steroid injection under fluoroscopic guidance Description of Surgical Findings:: DESCRIPTION OF PROCEDURE: History and physical of today was reviewed. Risks and benefits of the procedure were explained. The patient understood and agreed to proceed. Informed consent was obtained. IV inserted per routine protocol. The patient was taken to the operating room and placed in the prone position with a pillow positioned underneath the abdomen. The lower back and tailbone area was prepped and draped in a sterile fashion using iodine x3. Under fluoroscopy guidance on a lateral view, the caudal space was identified. The skin and subcutaneous tissue was anesthetized with approximately 3 mL of 1% lidocaine using a 25-gauge regular needle. Under direct visualization with fluoroscopy, using a 22-gauge 3-1/2-inch spinal needle, the needle was advanced via the skin through the sacral hiatus. The tip of the needle was passed through the sacrococcygeal ligament and advanced to approximately S4 area. After negative aspiration of blood or CSF, a total of 3 mL of contrast was injected to confirm correct placement of the needle as well as cephalad spread. The spread was followed to approximately L5 area. After confirmation on AP as well as lateral view and repeated negative aspiration, a total of 15 mL of preservative-free 0.125% Marcaine with 80 mg of Depo-Medrol was injected easily. The needle was then removed intact. The patient experienced no sign or symptoms of intrathecal or intravascular injection. The patient experienced no paresthesia. The procedure was completed without any apparent difficulty or any complications. The patient appeared to tolerate it well. ASSESSMENT AND PLAN: This is a 60-year-old female with lumbosacral radiculopathy, lumbosacral degenerative disc disease, lumbosacral spinal stenosis status post caudal epidural steroid injection, patient will continue her current medications, patient will follow in approximately 2 weeks for reevaluation. Type of Anesthesia: MAC Estimated Blood Loss (mL): Minimal Complications None
== END 2020-11-12 16:02 | disposition home or self-care (01) ==
LOC: SDC 13:28 → AC 13:31
PROVIDERS: PCP Internal Medicine; Referring Provider Anesthesiology Pain Medicine; Visit Provider Anesthesiology Pain Medicine
PROC: 3E0S3BZ Introduction of Anesthetic Agent into Epidural Space, Percutaneous Approach (ICD-10-PCS; CPT 62282; principal; 2020-11-12 14:55)
DX: M51.17 Intervertebral disc disorders with radiculopathy, lumbosacral region (principal); M48.07 Spinal stenosis, lumbosacral region; M47.27 Other spondylosis with radiculopathy, lumbosacral region; M96.1 Postlaminectomy syndrome, not elsewhere classified; G89.29 Other chronic pain; M79.10 Myalgia, unspecified site; I10 Essential (primary) hypertension; E78.5 Hyperlipidemia, unspecified; R56.9 Unspecified convulsions; J45.909 Unspecified asthma, uncomplicated; K21.9 Gastro-esophageal reflux disease without esophagitis; M85.80 Other specified disorders of bone density and structure, unspecified site; E55.9 Vitamin D deficiency, unspecified; F32.9 Major depressive disorder, single episode, unspecified; F17.210 Nicotine dependence, cigarettes, uncomplicated; Z79.891 Long term (current) use of opiate analgesic; Z79.899 Other long term (current) drug therapy
CPT/HCPCS: 62323; 64483; 77003; J7120; J3490

== ENCOUNTER 2020-12-02 03:18 | Observation (INO) | payer MEDICAID, SELFPAY ==
[2020-11-14 08:51] VITALS: BMI 34.1
[2020-12-02] VITALS (16 sets, daily range): BP systolic 133–176; BP diastolic 67–95; PULSE 59–76; RESP 14–21; TEMP 35.9–36.6; O2SAT 90–98; BMI 33.5
--- NOTE | 2020-12-02 03:41 | EKG12_ITS ---
Test Reason : SOB Blood Pressure : / mmHG Vent. Rate : 066 BPM Atrial Rate : 066 BPM P-R Int : 220 ms QRS Dur : 088 ms QT Int : 420 ms P-R-T Axes : 056 006 054 degrees QTc Int : 440 ms Sinus rhythm with 1st degree A-V block Low voltage QRS Possible Inferior infarct , age undetermined Abnormal ECG Confirmed by EVITA DUBOIS, ANTHONY ([id number]), photography editor TONYA BOLANOS ([id number]) on 12/04/2020 9:25:58 AM Referred By: KOLTON Confirmed By:ANTHONY JAMA MD
--- NOTE | 2020-12-02 03:44 | RAD_ITS ---
STUDY: X-RAY CHEST REASON FOR EXAM: Female, 60 years old. dyspnea TECHNIQUE: Single AP portable view of the chest. COMPARISON: 07/17/2020 FINDINGS: The lungs are clear and expanded. There is no demonstrated pleural abnormality. Normal size heart. Normal mediastinum and shyla. Normal visualized pulmonary arteries. Normal visualized aortic arch and descending thoracic aorta. Normal visualized thoracic spine. Normal visualized ribs, clavicles, and shoulders. There is no demonstrated abnormality of the visualized soft tissue structures of the upper abdomen. RAD/Chest 1 View (Portable) IMPRESSION: No evidence of acute cardiopulmonary process. Electronically Signed: Ajit Farrell DO at 4:33 EDT , Service support ,
--- NOTE | 2020-12-02 03:45 | EDS_ITS ---
HPI History of Present Illness Chief Complaint: Shortness of Breath Narrative Narrative: 60-year-old female presenting with shortness of breath. She states that this woke her up from sleep tonight. She has a history of COPD but does not use home O2. Patient does state that she had a sinus infection last week and was recently on Augmentin. Patient finished the course of this medication. She is not had a fever or chills. She denies body aches. She denies change in taste or smell. Patient has had a Covid 19 vaccines. Patient feels currently stable with 3 L of oxygen via nasal cannula. She denies chest pain. [facility] Medical History Asthma Chronic pain Depression Depression GI bleed Hypertension Neuropathy right ankle surgery Seasonal allergies Seizures Smoker Vitamin D deficiency Home Medications buprenorphine 15 mcg TOPICAL QWEEK MDD th05/23/20 [History Last Taken Unknown] baclofen 10 mg PO TID PRN #0 07/18/20 [Rx Last Taken Unknown] buspirone 5 mg tablet 5 mg PO TID #180 tab 07/24/20 [Rx Last Taken Unknown] escitalopram oxalate 20 mg tablet 20 mg PO DAILY #90 tab 07/24/20 [Rx Last Taken Unknown] fenofibrate nanocrystallized 48 mg tablet 48 mg PO DAILY #90 tab 07/24/20 [Rx Last Taken Unknown] lisinopril 20 mg-hydrochlorothiazide 25 mg tablet 1 tab PO DAILY #90 tab [Rx Last Taken 11/12/20 07:00 1 TAB] mv-min-vit C-ascorb Yu-Mih-Ewo-herb #124 333 mg-1.7 mg chewable tablet 1 tab PO DAILY 07/24/20 [History Last Taken Unknown] pravastatin 20 mg tablet 20 mg PO QHS #90 tab 07/24/20 [Rx Last Taken Unknown] aripiprazole 5 mg tablet 5 mg PO BID #180 tab 07/31/20 [Rx Last Taken Unknown] omeprazole 40 mg capsule,delayed release 40 mg PO DAILY #90 cap 08/07/20 [Rx L ast Taken Unknown] Handicap Placard #1 ea 08/13/20 [Rx Last Taken Unknown] mirtazapine 15 mg disintegrating tablet 15 mg PO QHS #90 tab 08/14/20 [Rx Last Taken Unknown] levetiracetam 500 mg tablet 500 mg PO Q12H #60 tablet 10/05/20 [Rx Last Taken Unknown] pregabalin 75 mg capsule 75 mg PO TID cap 10/05/20 [History Last Taken Unknown] walker #1 each 10/05/20 [Rx Last Taken Unknown] cetirizine 10 mg tablet 10 mg PO DAILY #90 tablet 10/09/20 [Rx Last Taken Unknown] fluticasone propionate 50 mcg/actuation nasal spray,suspension 2 spray INTRANASAL DAILY PRN #15.8 ml 11/19/20 [Rx Last Taken Unknown] codeine 10 mg-guaifenesin 100 mg/5 mL oral liquid 5 ml PO Q6H PRN #120 ml 11/23/20 [Rx Last Taken Unknown] Allergy/AdvReac Type Severity Reaction Status Date / Time Penicillins AdvReac Severe vomiting Verified 12/02/20 03:26 aspirin AdvReac Upset Verified 12/02/20 03:26 Stomach Family History Mother Breast cancer Hypertension Hyperlipemia Cancer melanoma, lyphoma ulcers Father Diabetes Myocardial infarction, Onset Age: 67 Hypertension Depression Sister Depression Hyperlipemia Surgical History H/O: hysterectomy History of back surgery Social History (Updated 12/02/20 @ 05:[address] Myriam Ferro MD) household members: friend(s) Smoking Status: Current every day smoker tobacco type: cigarettes Smoking packs per day: 0.5 Smoking cigarettes per day: 10.0 alcohol intake: never substance use type: does not use what type of physical activity do you participate in: walking frequency: 3-4 times per week ROS ROS ED Constitutional Constitutional ED: Denies chills, fever(s) or sweats Eyes Eyes: Denies blurry vision or change in vision ENT ENT ED: Denies ear pain, rhinorrhea or sore throat Cardiovascular Cardiovascular: Denies chest pain, palpitations or racing heartbeat Respiratory/Chest Respiratory/Chest: Reports cough and dyspnea; Denies sputum Gastrointestinal Gastrointestinal: Denies abdominal pain, constipation, diarrhea or vomiting Genitourinary Genitourinary ED: Denies dysuria, hematuria or urinary frequency Musculoskeletal Musculoskeletal: Denies arthralgias, myalgias or neck pain Integumentary Denies abscess, Abrasions or rash Neurologic Neurologic: Denies headache(s), paresthesias or weakness Psychiatric Psychiatric: Denies anxiety, depression, suicidal ideation or suicidal thoughts Endocrine Endocrinology: Denies polydipsia or polyuria EXAM Physical Exam Const Vital Signs: 12/02/20 03:23 12/02/20 03:27 12/02/20 03:39 Temperature 96.6 F L 96.6 F L Temperature Source Temporal Temporal Pulse Rate 59 L 59 L Respiratory Rate 18 18 Respiratory Effort Short of Breath Respiratory Pattern Blood Pressure 151/73 H 151/73 H Blood Pressure Mean 99 99 Pulse Ox 96 96 Oxygen Delivery Method Nasal Cannula Nasal Cannula Nasal Cannula Oxygen Flow Rate (L/min) 3 3 3 12/02/20 04:07 12/02/20 05:05 Temperature 97.2 F L Temperature Source Temporal Pulse Rate 67 60 Respiratory Rate 21 H 14 Respiratory Effort Respiratory Pattern Tachypnea Blood Pressure 133/67 H Blood Pressure Mean 89 Pulse Ox 96 Oxygen Delivery Method Nasal Cannula Oxygen Flow Rate (L/min) 3 Positive well nourished General Appearance ED: NAD HEENT atraumatic; Negative for tenderness Eyes PERRL and EOMs intact bilaterally Neck no lymphadenopathy and supple Resp normal respiratory effort Auscultation: diminished lung sounds Cardio regular rate and regular rhythm GI non-tender and non-distended Palpation: soft Extremity normal to inspection General Extremety ED: Negative for tenderness Neuro oriented x3 Sensorium / Orientation: alert Psych mental status grossly normal Thought Process: normal thought process Skin no wounds Lesions: no lesions Rashes: no rashes MDM MDM MDM Narrative Medical decision making narrative: Patient presented with shortness of breath. She is requiring 3 L of oxygen via nasal cannula to maintain O2 sats. Patient was given Solu-Medrol by EMS. She is given breathing treatments in the ED. Lab work is obtained and was within normal limits. Troponin is negative. EKG performed on arrival shows a sinus rhythm at 66 bpm with a first-degree AV block as interpreted by myself. Chest x-ray shows no acute cardiopulmonary process as interpreted by myself and radiology does agree. On reevaluation patient is 91% on 3 L and given this I feel she would benefit from admission to the hospital for further treatment and evaluation. Patient is amenable to this plan. Impression: 1. COPD exacerbation 2. Hypoxic respiratory failure Lab Data Labs: Laboratory Results - last 24 hr 12/02/20 12/02/20 03:50 03:50 WBC 5.9 RBC 4.40 Hgb 11.7 L Hct 38.3 MCV 87.0 MCH 26.6 L MCHC 30.5 L RDW Std Deviation 47.7 H RDW Coeff of Dyana 14.9 H Plt Count 211 MPV 10.7 Immature Gran % (Auto) 0.300 Neut % (Auto) 63.8 Lymph % (Auto) 26.3 [place] % (Auto) 6.1 Eos % (Auto) 2.5 Baso % (Auto) 1.0 Absolute Neuts (auto) 3.8 Absolute Lymphs (auto) 1.55 Nucleated RBC % 0 Sodium 141 Potassium 4.0 Chloride 105 Carbon Dioxide 32.0 Anion Gap 4 L BUN 22 H Creatinine 0.89 Estim Creat Clear Calc 62.93 Est GFR (MDRD) Af Amer 83 Est GFR (MDRD) Non-Af 69 BUN/Creatinine Ratio 24.7 H Glucose 108 H Calcium 8.8 Troponin I < 0.015 Radiography Diagnostic Testing: Radiology Impression Chest X-Ray 12/02/20 03:44 IMPRESSION: No evidence of acute cardiopulmonary process. Electronically Signed: Ajit Farrell DO at 4:33 EDT , Service support , Discharge Plan Triage Chief Complaint: Shortness of Breath ED Provider: Parish Govea Dx/Rx/DC Orders Prescriptions: No Action Airborne (ascorbate sodium) 333-1.7 mg tablet,chewable 1 tab PO DAILY RF: 0 buspirone 5 mg tablet 5 mg PO TID Qty: 180 RF: 1 fenofibrate nanocrystallized 48 mg tablet 48 mg PO DAILY Qty: 90 RF: 3 lisinopril-hydrochlorothiazide 20-25 mg tablet 1 tab PO DAILY Qty: 90 RF: 1 pravastatin 20 mg tablet 20 mg PO QHS Qty: 90 RF: 1 escitalopram oxalate 20 mg tablet 20 mg PO DAILY Qty: 90 RF: 3 mirtazapine 15 mg tablet,disintegrating 15 mg PO QHS Qty: 90 RF: 1 pregabalin 75 mg capsule 75 mg PO TID RF: 0 levetiracetam [Keppra] 500 mg tablet 500 mg PO Q12H Qty: 60 RF: 1 buprenorphine 1 EACH patch weekly 15 mcg TOPICAL QWEEK MDD thurs RF: 0 baclofen 20 MG tablet 10 mg PO TID PRN (Reason: Spasms) Qty: 0 RF: 0 aripiprazole 5 mg tablet 5 mg PO BID Qty: 180 RF: 3 omeprazole 40 mg capsule,delayed release(DR/EC) 40 mg PO DAILY Qty: 90 RF: 3 (DME) Handicap Placard See Rx Instructions .ROUTE .MEDSUPPLY Qty: 1 RF: 0 (DME) walker Misc See Rx Instructions .ROUTE .MEDSUPPLY Qty: 1 RF: 0 cetirizine [Zyrtec] 10 mg tablet 10 mg PO DAILY Qty: 90 RF: 1 fluticasone propionate [Flonase Allergy Relief] 50 mcg/actuation spray,suspension 2 spray INTRANASAL DAILY PRN (Reason: allergy symptoms) Qty: 15.8 RF: 1 codeine-guaifenesin 10-100 mg/5 mL liquid 5 ml PO Q6H PRN (Reason: cough) Qty: 120 RF: 0 Primary Care Provider: Nick Lindsey
[2020-12-02] MEDS: Ipratropium/Albuterol Sulfate 3 ML AMPUL.NEB INHALATION ×5 (03:54→19:37)
[2020-12-02] MEDS: Albuterol 2.5 MG/3 ML VIAL.NEB. INHALATION (03:54)
[2020-12-02 03:57] LABS: Absolute Lymphocyte Count 1.55 X10^3/uL (0.83-4.51); Absolute Neutrophil Count 3.8 X10^3/uL (2.0-7.7); Basophil# 0.06 X10^3/uL; Eosinophil# 0.15 X10^3/uL; Eosinophils% 2.5 % (0-5); Hematocrit 38.3 % (37-47); Hemoglobin 11.7 g/dL (12.0-15.0); Lymphocyte # 1.55 X10^3/ul (0.83-4.51); Lymphocyte % 26.3 % (19-41); Mean Corp Hgb Conc 30.5 g/dL (32-36); Mean Corpuscular Hgb 26.6 pg (27.0-32.0); Mean Platelet Vol. 10.7 fl (6.2-12.0); Monocyte# 0.36 X10^3/uL; Monocyte% 6.1 % (0-10); NRBC Flagged by Analyzer 0 % (0-5); Neutrophil # 3.76 X10^3/uL (2.7-7.7); Neutrophil % 63.8 % (47-70); Platelet Count 211 K/mm3 (150-450); RBC Distribution Width CV 14.9 % (11.6-14.6); RBC Distribution Width SD 47.7 fl (35.1-43.9); White Blood Count 5.9 K/mm3 (4.4-11.0)
[2020-12-02 04:14] LABS: Anion Gap 4 (5-15); BUN 22 mg/dL (7-18); BUN/Creat Ratio 24.7 RATIO (10-20); Calcium,Total 8.8 mg/dL (8.5-10.1); Chloride 105 mmol/L (98-107); Creatinine, Serum 0.89 mg/dL (0.55-1.02); EST Glomerular Filtration Rate 69 mL/min (>60); Est Glom Filt Rate - Afr Amer 83 mL/min (>60); Estimated Creatinine Clearance 62.93 ml/min; Glucose 108 mg/dL (74-106); Sodium Level 141 mmol/L (136-145)
--- NOTE | 2020-12-02 04:53 | PCM.HP.STD ---
HPI - General General Chief Complaint: Dyspnea. HPI Narrative The patient is a 60 y/o F w/ PMHx: Obesity, Chronic back pain following w/ pain management, HTN, HLD, Tobacco use, Chronic COPD/Asthma, Seizure disorder, Seasonal allergies, Hx frequent falls and encephalopathy with recent admission secondary to polypharmacy, Anxiety and Depression who presents to the [facility] [place] ED on 12/02/20 with history of increased sinus issues with underlying significant seasonal allergies with recent completion of course of Augmentin with no recent fevers or chills however she woke on evening of day of presentation with worsened dyspnea and wheezing prompting ED evaluation. She denies any recent associated nausea, emesis, abdominal pain, diarrhea, alteration in sense of taste or smell. Patient per EMS appeared confused upon their initial evaluation but improved with oxygen supplementation and returned to baseline while in the ED following interventions/treatments. She reports having no recurrent sinus facial pressure or pain since treatment recently. Work-up in the ED included T 96.6, heart rate 59, BP 151/73, respiratory rate 18, 96% on 3 L nasal cannula, CBC with WBC 5.9, hemoglobin 11.7, platelet 211 without marked shift, BMP with BUN/creatinine 22/0.89, glucose 108 otherwise unremarkable, troponin less than 0.015, negative rapid covid antigen testing, chest x-ray with no acute cardiopulmonary findings. Patient was administered IV solumedrol per EMS en route. [facility] Medical History Asthma Chronic pain Depression Depression GI bleed Hypertension Neuropathy right ankle surgery Seasonal allergies Seizures Smoker Vitamin D deficiency Home Medications buprenorphine 15 mcg TOPICAL QWEEK MDD 05/23/20 [History Last Taken Unknown] baclofen 10 mg PO TID PRN #0 07/18/20 [Rx Last Taken Unknown] buspirone 5 mg tablet 5 mg PO TID #180 tab 07/24/20 [Rx Last Taken Unknown] escitalopram oxalate 20 mg tablet 20 mg PO DAILY #90 tab 07/24/20 [Rx Last Taken Unknown] fenofibrate nanocrystallized 48 mg tablet 48 mg PO DAILY #90 tab 07/24/20 [Rx Last Taken Unknown] lisinopril 20 mg-hydrochlorothiazide 25 mg tablet 1 tab PO DAILY #90 tab 07/24/20 [Rx Last Taken 11/12/20 07:00 1 TAB] mv-min-vit C-ascorb Cn-Nzr-Uap-herb #124 333 mg-1.7 mg chewable tablet 1 tab PO DAILY 07/24/20 [History Last Taken Unknown] pravastatin 20 mg tablet 20 mg PO QHS #90 tab 07/24/20 [Rx Last Taken Unknown] aripiprazole 5 mg tablet 5 mg PO BID #180 tab 07/31/20 [Rx Last Taken Unknown] omeprazole 40 mg capsule,delayed release 40 mg PO DAILY #90 cap 08/07/20 [Rx Last Taken Unknown] Handicap Placard #1 ea 08/13/20 [Rx Last Taken Unknown] mirtazapine 15 mg disintegrating tablet 15 mg PO QHS #90 tab 08/14/20 [Rx Last Taken Unknown] levetiracetam 500 mg tablet 500 mg PO Q12H #60 tablet 10/05/20 [Rx Last Taken Unknown] pregabalin 75 mg capsule 75 mg PO TID cap 10/05/20 [History Last Taken Unknown] walker #1 each 10/05/20 [Rx Last Taken Unknown] cetirizine 10 mg tablet 10 mg PO DAILY #90 tablet 10/09/20 [Rx Last Taken Unknown] fluticasone propionate 50 mcg/actuation nasal spray,suspension 2 spray INTRANASAL DAILY PRN #15.8 ml 11/19/20 [Rx Last Taken Unknown] codeine 10 mg-guaifenesin 100 mg/5 mL oral liquid 5 ml PO Q6H PRN #120 ml 11/23/20 [Rx Last Taken Unknown] Allergy/AdvReac Type Severity Reaction Status Date / Time Penicillins AdvReac Severe vomiting Verified 12/02/20 03:26 aspirin AdvReac Upset Verified 12/02/20 03:26 Stomach Family History Mother Breast cancer Hypertension Hyperlipemia Cancer melanoma, lyphoma ulcers Father Diabetes Myocardial infarction, Onset Age: 67 Hypertension Depression Sister Depression Hyperlipemia Surgical History H/O: hysterectomy History of back surgery Social History (Updated 12/02/20 @ 05:[address] Myriam Ferro MD) household members: friend(s) Smoking Status: Current every day smoker tobacco type: cigarettes Smoking packs per day: 0.5 Smoking cigarettes per day: 10.0 alcohol intake: never substance use type: does not use what type of physical activity do you participate in: walking frequency: 3-4 times per week ROS ROS Narrative Admission Review of Systems: CONSTITUTIONAL: No weight loss, fever, chills, + weakness or fatigue. HEENT: Eyes: No visual loss, blurred vision, double vision or yellow sclerae. Ears, Nose, Throat: No hearing loss, sneezing, congestion, runny nose or sore throat. SKIN: No rash or itching, lesions, wounds. CARDIOVASCULAR: No chest pain, chest pressure or chest discomfort, palpitations, edema, orthopnea, syncopal events. RESPIRATORY: + shortness of breath, cough with minimal sputum, wheezing, No hemoptysis. GASTROINTESTINAL: No anorexia, nausea, vomiting or diarrhea, abdominal pain, melena, BRBPR. GENITOURINARY: No dysuria, frequency, urgency or retention. NEUROLOGICAL: + Transient confusion, seizure disorder history. No headache, dizziness, syncope, paralysis, ataxia, numbness or tingling in the extremities, focal weakness, change in bowel or bladder control. MUSCULOSKELETAL: + muscle, back pain, joint pain or stiffness. HEMATOLOGIC: + anemia, bleeding or bruising. LYMPHATICS: No enlarged nodes. No history of splenectomy. PSYCHIATRIC: + history of depression or anxiety. ENDOCRINOLOGIC: No reports of sweating, cold or heat intolerance. No polyuria or polydipsia. ALLERGIES: + history of asthma, hives, eczema or rhinitis. Vital Signs Vital Signs Vital Signs: 12/02/20 03:23 12/02/20 03:27 12/02/20 03:39 Temperature 96.6 F L 96.6 F L Temperature Source Temporal Temporal Pulse Rate 59 L 59 L Respiratory Rate 18 18 Respiratory Effort Short of Breath Respiratory Pattern Blood Pressure 151/73 H 151/73 H Blood Pressure Mean 99 99 Pulse Ox 96 96 Oxygen Delivery Method Nasal Cannula Nasal Cannula Nasal Cannula Oxygen Flow Rate (L/min) 3 3 3 12/02/20 04:07 Temperature Temperature Source Pulse Rate 67 Respiratory Rate 21 H Respiratory Effort Respiratory Pattern Tachypnea Blood Pressure Blood Pressure Mean Pulse Ox Oxygen Delivery Method Oxygen Flow Rate (L/min) Physical Exam Narrative Physical Examination: General: Awakens to stimuli but is very fatigued, alert once awoken and answering questions, oriented x 3 and cooperative, seated upright in the ED bed in no apparent distress but notably fatigued, notes feeling improved since initial ED presentation. Skin: normal color, turgor, no icterus, cyanosis except noted bilateral lower extremity venous stasis skin changes, see extremities. HEENT: AT/NC, EOMI, PERRLA, mildly dry MM, no carotid bruits or JVD noted. Lungs: Diffusely diminished, greater bases, occasional expiratory wheezing, no rales or rhonchi. Heart: Regular rate and rhythm; no gallop, rub audible. Abdomen: soft, obese, NTTP, ND, normal BS, no HSM. Extremities: no cyanosis or clubbing, bilateral lower extremity ankle to mid manuel 1+ chronic pitting edema. Neurological: patient awake, alert, oriented x 3, cognitive function intact; pupils equally reactive to light and accommodation, cranial nerves II-XII grossly normal, moving all 4 extremities, no focal deficits, strength moderately global decrease secondary to acute presentation. Psychiatric: affect appears very fatigued otherwise notes feeling improved, no acute evidence of depressive or anxiety feelings. Lab / Micro Data Result Diagrams: 12/02/20 03:50 12/02/20 03:50 Labs: Laboratory Results - last 24 hr 12/02/20 12/02/20 03:50 03:50 WBC 5.9 RBC 4.40 Hgb 11.7 L Hct 38.3 MCV 87.0 MCH 26.6 L MCHC 30.5 L RDW Std Deviation 47.7 H RDW Coeff of Dyana 14.9 H Plt Count 211 MPV 10.7 Immature Gran % (Auto) 0.300 Neut % (Auto) 63.8 Lymph % (Auto) 26.3 [place] % (Auto) 6.1 Eos % (Auto) 2.5 Baso % (Auto) 1.0 Absolute Neuts (auto) 3.8 Absolute Lymphs (auto) 1.55 Nucleated RBC % 0 Sodium 141 Potassium 4.0 Chloride 105 Carbon Dioxide 32.0 Anion Gap 4 L BUN 22 H Creatinine 0.89 Estim Creat Clear Calc 62.93 Est GFR (MDRD) Af Amer 83 Est GFR (MDRD) Non-Af 69 BUN/Creatinine Ratio 24.7 H Glucose 108 H Calcium 8.8 Troponin I < 0.015 Micro: Microbiology 12/02/20 03:50 SARS-CoV-2 Antigen (Rapid) - Final Mucosa - Nasopharyngeal Radiology Impression Chest X-Ray 12/02/20 03:44 IMPRESSION: No evidence of acute cardiopulmonary process. Electronically Signed: Ajit Farrell DO at 4:33 EDT , Service support , Assessment & Plan Assessment/Plan (1) COPD exacerbation: PLAN: The patient is a 60 y/o F w/ PMHx: Obesity, Chronic back pain following w/ pain management, HTN, HLD, Tobacco use, Chronic COPD/Asthma, Seizure disorder, Seasonal allergies, Hx frequent falls and encephalopathy with recent admission secondary to polypharmacy, Anxiety and Depression who presents to the [facility] [place] ED on 12/02/20 with history of increased sinus issues with underlying significant seasonal allergies with recent completion of course of Augmentin with no recent fevers or chills however she woke on evening of day of presentation with worsened dyspnea and wheezing prompting ED evaluation. 1. Acute on chronic COPD exacerbation with hypoxia and associated encephalopathy: Will admit to medical surgical floor, maintain on oxygen with wean as tolerated to room air, continue ATC duonebs, PRN albuterol, IV methylprednisolone with prednisone transition, HOB, IS parameters, will defer abx therapy pending sputum cx, respiratory viral panel, procalcitonin. Rapid covid negative and patient received COVID vaccination series. 2. Chronic back pain with radiculopathy: We will continue home pregabalin, home buprenorphine regimen as well as baclofen. Maintain on fall precautions. 3. Anxiety and depression/bipolar disorder: We will continue patient home escitalopram, BuSpar, aripiprazole as well as mirtazapine regimen. 4. Hypertension: Continue home regimen including lisinopril, hydrochlorothiazide with hold parameters, PRN hydralazine. 5. Hyperlipidemia: Continue home statin regimen. 6. Seizure disorder: We will continue patient home Keppra regimen. 7. Obesity: Weight loss and lifestyle changes encouraged. 8. GERD: We will continue patient home PPI. 9. DVT prophylaxis: SCDs, Lovenox. 10. 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 Discussed CODE status at length including difference between FULL code, DNR-CCA and DNR-CC status. Following discussions about the differences in these status, requested Full code status Also noted that she would be amenable to BIPAP if needed although given current presentation, improving not an expected need. Advanced Care Planning Face to Face Time: 16 minutes. Visit Charges Inpatient E&M: 59616 Init Hosp L3 Procedures Hospitalists Procedures: 55226 Advncd Care Plan 30 Min
[2020-12-02] MEDS: levETIRAcetam 500 MG Tablet PO ×2 (06:49→16:53)
[2020-12-02] MEDS: 0.9% Normal Saline 1,000 ML 100 ML IV ×2 (06:49→16:52)
[2020-12-02] MEDS: Pregabalin 75 MG Capsule PO ×3 (06:49→21:49)
[2020-12-02] MEDS: busPIRone 5 MG Tablet PO ×3 (06:50→21:49)
[2020-12-02] MEDS: Lisinopril 20 MG Tablet PO (09:29)
[2020-12-02] MEDS: Fenofibrate 48 MG Tablet PO (09:30)
[2020-12-02] MEDS: Loratadine 10 MG Tablet PO (09:30)
[2020-12-02] MEDS: Escitalopram Oxalate 20 MG Tablet PO (09:30)
[2020-12-02] MEDS: Enoxaparin 40 MG/0.4 ML Syringe SC (09:30)
[2020-12-02] MEDS: Pantoprazole Sodium 40 MG Tablet PO (09:30)
[2020-12-02] MEDS: hydroCHLOROthiazide 25 MG Tablet PO (09:30)
[2020-12-02] MEDS: ARIPiprazole 5 MG Tablet PO ×2 (09:31→21:49)
--- NOTE | 2020-12-02 11:08 | PCM.HOSP.N ---
Hospitalist Note Patient was seen and examined briefly today, she is resting quietly and voices no complaints. Patient has expiratory wheezing which is high-pitched, patient's respiratory panel is positive for human metapneumovirus. This is probably the origin of her COPD exacerbation. Patient will continue on her present medications
[2020-12-02 11:15] LABS: Allen Test Positive; Base Excess 2 mmol/L (-2 to +2); Bicarbonate 27.4 mmol/L (22-26); Blood Gas Specimen Type ART; O2 Delivery Device Cannula; PO2 63 mmHG (75-100); SITE R Brach; SO2 91 % (95-99); Total Carbon Dioxide 29 mmol/L; pCO2 45.9 mmHg (35-45); pH 7.38 (7.35-7.45)
[2020-12-02] MEDS: Acetaminophen 325 MG Tablet 650 MG PO ×2 (16:54→21:48)
[2020-12-02] MEDS: Baclofen 10 MG Tablet PO ×2 (16:55→21:49)
[2020-12-02] MEDS: 0.9% Saline Lock 10 ML Syringe IV (21:48)
[2020-12-02] MEDS: Pravastatin 20 MG Tablet PO (21:49)
[2020-12-02] MEDS: Mirtazapine 15 MG Tablet PO (21:49)
[2020-12-03] MEDS: Baclofen 10 MG Tablet PO (02:41)
[2020-12-03] MEDS: Acetaminophen 325 MG Tablet 650 MG PO (02:41)
[2020-12-03 02:46] VITALS: BP 141/77; PULSE 65; RESP 16; TEMP 36.8; O2SAT 95
[2020-12-03] MEDS: 0.9% Normal Saline 1,000 ML 100 ML IV (02:46)
[2020-12-03] MEDS: 0.9% Saline Lock 10 ML Syringe IV (05:43)
[2020-12-03] MEDS: levETIRAcetam 500 MG Tablet PO ×2 (05:43→08:36)
[2020-12-03] MEDS: busPIRone 5 MG Tablet PO (05:43)
[2020-12-03] MEDS: Pregabalin 75 MG Capsule PO (05:43)
[2020-12-03 06:06] LABS: Absolute Lymphocyte Count 0.89 X10^3/uL (0.83-4.51); Absolute Neutrophil Count 9.4 X10^3/uL (2.0-7.7); Basophil# 0.01 X10^3/uL; Basophil% 0.1 % (0-1); Hematocrit 36.9 % (37-47); Hemoglobin 11.6 g/dL (12.0-15.0); Lymphocyte # 0.89 X10^3/ul (0.83-4.51); Lymphocyte % 8.3 % (19-41); Mean Corp Hgb Conc 31.4 g/dL (32-36); Mean Corpuscular Hgb 26.5 pg (27.0-32.0); Mean Corpuscular Volume 84.2 fL (81-99); Mean Platelet Vol. 11.1 fl (6.2-12.0); Monocyte# 0.41 X10^3/uL; Monocyte% 3.8 % (0-10); NRBC Flagged by Analyzer 0 % (0-5); Neutrophil # 9.36 X10^3/uL (2.7-7.7); Platelet Count 223 K/mm3 (150-450); RBC Distribution Width CV 14.9 % (11.6-14.6); RBC Distribution Width SD 45.5 fl (35.1-43.9); Red Blood Count 4.38 M/mm3 (4.2-5.4); White Blood Count 10.8 K/mm3 (4.4-11.0)
[2020-12-03 06:32] LABS: ALB/GLOB Ratio 0.9 RATIO (0.9-2.4); AST(SGOT) 15 U/L (15-37); Alanine Aminotransfer ALT/SGPT 26 U/L (13-56); Albumin, Serum 2.9 g/dL (3.2-5.0); Alkaline Phosphatase 50 U/L (45-117); Anion Gap 4 (5-15); BUN 20 mg/dL (7-18); BUN/Creat Ratio 26.9 RATIO (10-20); Calcium,Total 8.8 mg/dL (8.5-10.1); Chloride 107 mmol/L (98-107); Creatinine, Serum 0.74 mg/dL (0.55-1.02); EST Glomerular Filtration Rate 84 mL/min (>60); Est Glom Filt Rate - Afr Amer 102 mL/min (>60); Estimated Creatinine Clearance 75.68 ml/min; Globulin 3.3 g/dL (2.2-4.2); Glucose 127 mg/dL (74-106); Protein, Total 6.2 g/dL (6.4-8.2); Sodium Level 140 mmol/L (136-145)
[2020-12-03 07:08] VITALS: PULSE 88; RESP 20; O2SAT 96
[2020-12-03] MEDS: Ipratropium/Albuterol Sulfate 3 ML AMPUL.NEB INHALATION ×2 (07:08→11:05)
[2020-12-03 08:18] VITALS: BP 153/83; PULSE 65; RESP 20; TEMP 36.6; O2SAT 95
[2020-12-03 08:20] VITALS: PULSE 70
[2020-12-03] MEDS: Enoxaparin 40 MG/0.4 ML Syringe SC (08:35)
[2020-12-03] MEDS: Lisinopril 20 MG Tablet PO (08:36)
[2020-12-03] MEDS: Escitalopram Oxalate 20 MG Tablet PO (08:36)
[2020-12-03] MEDS: hydroCHLOROthiazide 25 MG Tablet PO (08:36)
[2020-12-03] MEDS: Pantoprazole Sodium 40 MG Tablet PO (08:36)
[2020-12-03] MEDS: Loratadine 10 MG Tablet PO (08:36)
[2020-12-03] MEDS: Fenofibrate 48 MG Tablet PO (08:37)
[2020-12-03] MEDS: ARIPiprazole 5 MG Tablet PO (08:37)
--- NOTE | 2020-12-03 09:42 | PCM.DC ---
Discharge Instructions Diet Discharge Diet: No restrictions Activity Discharge Activity: Return to Normal Activity Dressing / Incision Call your doctor if you observe: Fever of 101 or Higher and Shortness of breath (worsening) Follow Up Care Test Results: Test results from this visit will be discussed in further detail at your follow-up appointment, if applicable. Discharge Plan Admission Admit Date/Time: 12/02/20 05:00 Attending Provider: Carlitos Velázquez Primary Care Provider: Nick Lindsey Discharge Orders/Prescriptions Prescriptions: New prednisone 20 mg tablet 40 mg PO DAILY 5 Days Qty: 10 RF: 0 albuterol sulfate 90 mcg/actuation HFA aerosol inhaler 2 puff inhalation Q6H PRN (Reason: shortness of breath or wheezing) Qty: 6.7 RF: 0 Continued Airborne (ascorbate sodium) 333-1.7 mg tablet,chewable 1 tab PO DAILY RF: 0 buspirone 5 mg tablet 5 mg PO TID Qty: 180 RF: 1 fenofibrate nanocrystallized 48 mg tablet 48 mg PO DAILY Qty: 90 RF: 3 lisinopril-hydrochlorothiazide 20-25 mg tablet 1 tab PO DAILY Qty: 90 RF: 1 pravastatin 20 mg tablet 20 mg PO QHS Qty: 90 RF: 1 escitalopram oxalate 20 mg tablet 20 mg PO DAILY Qty: 90 RF: 3 mirtazapine 15 mg tablet,disintegrating 15 mg PO QHS Qty: 90 RF: 1 pregabalin 75 mg capsule 75 mg PO TID RF: 0 levetiracetam [Keppra] 500 mg tablet 500 mg PO Q12H Qty: 60 RF: 1 buprenorphine 1 EACH patch weekly 15 mcg TOPICAL QWEEK MDD thurs RF: 0 baclofen 20 MG tablet 10 mg PO TID PRN (Reason: Spasms) Qty: 0 RF: 0 aripiprazole 5 mg tablet 5 mg PO BID Qty: 180 RF: 3 omeprazole 40 mg capsule,delayed release(DR/EC) 40 mg PO DAILY Qty: 90 RF: 3 (DME) Handicap Placard See Rx Instructions .ROUTE .MEDSUPPLY Qty: 1 RF: 0 (DME) walker Misc See Rx Instructions .ROUTE .MEDSUPPLY Qty: 1 RF: 0 cetirizine [Zyrtec] 10 mg tablet 10 mg PO DAILY Qty: 90 RF: 1 fluticasone propionate [Flonase Allergy Relief] 50 mcg/actuation spray,suspension 2 spray INTRANASAL DAILY PRN (Reason: allergy symptoms) Qty: 15.8 RF: 1 codeine-guaifenesin 10-100 mg/5 mL liquid 5 ml PO Q6H PRN (Reason: cough) Qty: 120 RF: 0 Referrals / Follow Up: Nick Lindsey MD [Primary Care Provider] - Disposition Disposition (needs filled in before D/C Order can be placed): Home, self care
--- NOTE | 2020-12-03 09:47 | DS.PCM_ITS ---
Providers Date of Admission: 12/02/20 Primary Care Physician: Dr. Nick Lindsey MD Reason For Visit: COPD EXACERBATION Diagnosis Discharge Diagnosis (1) COPD exacerbation: Status: Chronic Code(s): J44.1 - Chronic obstructive pulmonary disease with (acute) exacerbation Medications at Discharge Home Medications buprenorphine 15 mcg TOPICAL QWEEK MDD thurs 05/23/20 baclofen 10 mg PO TID PRN #0 07/18/20 buspirone 5 mg tablet 5 mg PO TID #180 tab 07/24/20 escitalopram oxalate 20 mg tablet 20 mg PO DAILY #90 tab 07/24/20 fenofibrate nanocrystallized 48 mg tablet 48 mg PO DAILY #90 tab 07/24/20 lisinopril 20 mg-hydrochlorothiazide 25 mg tablet 1 tab PO DAILY #90 tab 07/24/20 mv-min-vit C-ascorb Ov-Nzm-Xva-herb #124 333 mg-1.7 mg chewable tablet 1 tab PO DAILY 07/24/20 pravastatin 20 mg tablet 20 mg PO QHS #90 tab 07/24/20 aripiprazole 5 mg tablet 5 mg PO BID #180 tab 07/31/20 omeprazole 40 mg capsule,delayed release 40 mg PO DAILY #90 cap 08/07/20 Handicap Placard #1 ea 08/13/20 mirtazapine 15 mg disintegrating tablet 15 mg PO QHS #90 tab 08/14/20 levetiracetam 500 mg tablet 500 mg PO Q12H #60 tablet 10/05/20 pregabalin 75 mg capsule 75 mg PO TID cap 10/05/20 walker #1 each 10/05/20 cetirizine 10 mg tablet 10 mg PO DAILY #90 tablet 10/09/20 fluticasone propionate 50 mcg/actuation nasal spray,suspension 2 spray INTRANASAL DAILY PRN #15.8 ml 11/19/20 codeine 10 mg-guaifenesin 100 mg/5 mL oral liquid 5 ml PO Q6H PRN #120 ml 11/23/20 albuterol sulfate 2 puff INHALATION Q6H PRN #6.7 g 12/03/20 prednisone 40 mg PO DAILY 5 Days #10 tab 12/03/20 Hospital Course Operations None Procedures None Summary of Care Provided Minutes Spent on Discharge: 28 Hospital Course: 60-year-old white female presents with shortness of breath. Patient was diagnosed with acute exacerbation of COPD and started on bronchodilators as well as methylprednisolone. Patient improved over the next day and patient was ambulated off oxygen and amatory pulse ox was 92%. Therefore, the patient would not require any oxygen upon discharge. Patient will be discharged with a 5-day course of 40 mg prednisone plus metered-dose inhaler upon discharge. Patient thinks that her COPD may have been aggravated due to allergies from the pollen. Patient has been vaccinated against COVID-19. Physical Exam Narrative Walk patient in her room and patient is pulse ox, on room air, dropped down to 92%. Const alert General Appearance: cooperative Resp normal respiratory effort and clear to auscultation bilaterally Cardio regular rate, regular rhythm, S1 normal heart sound and S2 normal heart sound ABG / Lab / Microbiology Data Attestation: I reviewed the patient's lab results. Result Diagrams: 12/03/20 05:42 12/03/20 05:42 Laboratory: Laboratory Results - last 24 hr 12/03/20 12/03/20 05:42 05:42 WBC 10.8 RBC 4.38 Hgb 11.6 L Hct 36.9 L MCV 84.2 MCH 26.5 L MCHC 31.4 L RDW Std Deviation 45.5 H RDW Coeff of Dyana 14.9 H Plt Count 223 MPV 11.1 Immature Gran % (Auto) 0.800 Neut % (Auto) 87.0 H Lymph % (Auto) 8.3 L Prentiss % (Auto) 3.8 Eos % (Auto) 0.0 Baso % (Auto) 0.1 Absolute Neuts (auto) 9.4 H Absolute Lymphs (auto) 0.89 Nucleated RBC % 0 Sodium 140 Potassium 4.0 Chloride 107 Carbon Dioxide 29.0 Anion Gap 4 L BUN 20 H Creatinine 0.74 Estim Creat Clear Calc 75.68 Est GFR (MDRD) Af Amer 102 Est GFR (MDRD) Non-Af 84 BUN/Creatinine Ratio 26.9 H Glucose 127 H Calcium 8.8 Total Bilirubin 0.20 AST 15 ALT 26 Alkaline Phosphatase 50 Total Protein 6.2 L Albumin 2.9 L Globulin 3.3 Albumin/Globulin Ratio 0.9 Microbiology: Microbiology 12/02/20 05:15 Respiratory Panel (PCR) - Final Mucosa - Nasopharyngeal Human [place] Microbiology 12/02/20 05:15 Mucosa - Nasopharyngeal Respiratory Panel (PCR) - Final Human [place] 12/02/20 03:50 Mucosa - Nasopharyngeal SARS-CoV-2 Antigen (Rapid) - Final ABG: ABG 12/02/20 11:08 Specimen Type ART Sample Site R Brach pH 7.38 Bicarbonate Actual 27.4 H Total CO2 29 Base Excess 2 O2 Saturation 91 L ABG pCO2 45.9 H ABG pO2 63 L Fran Test Positive O2 Delivery Device Cannula Liter Flow 2.0 D/C Instructions Discharge Diet: No restrictions Discharge Activity: Return to Normal Activity Call your doctor if you observe: Fever of 101 or Higher and Shortness of breath (worsening) Meaningful Use Info Meaningful Use Diagnoses (Choose all that apply): None applicable Discharge Plan Admission Admit Date/Time: 12/02/20 05:00 Attending Provider: Carlitos Velázquez Primary Care Provider: Nick Lindsey Discharge Orders/Prescriptions Prescriptions: New prednisone 20 mg tablet 40 mg PO DAILY 5 Days Qty: 10 RF: 0 albuterol sulfate 90 mcg/actuation HFA aerosol inhaler 2 puff inhalation Q6H PRN (Reason: shortness of breath or wheezing) Qty: 6.7 RF: 0 Continued Airborne (ascorbate sodium) 333-1.7 mg tablet,chewable 1 tab PO DAILY RF: 0 buspirone 5 mg tablet 5 mg PO TID Qty: 180 RF: 1 fenofibrate nanocrystallized 48 mg tablet 48 mg PO DAILY Qty: 90 RF: 3 lisinopril-hydrochlorothiazide 20-25 mg tablet 1 tab PO DAILY Qty: 90 RF: 1 pravastatin 20 mg tablet 20 mg PO QHS Qty: 90 RF: 1 escitalopram oxalate 20 mg tablet 20 mg PO DAILY Qty: 90 RF: 3 mirtazapine 15 mg tablet,disintegrating 15 mg PO QHS Qty: 90 RF: 1 pregabalin 75 mg capsule 75 mg PO TID RF: 0 levetiracetam [Keppra] 500 mg tablet 500 mg PO Q12H Qty: 60 RF: 1 buprenorphine 1 EACH patch weekly 15 mcg TOPICAL QWEEK MDD thurs RF: 0 baclofen 20 MG tablet 10 mg PO TID PRN (Reason: Spasms) Qty: 0 RF: 0 aripiprazole 5 mg tablet 5 mg PO BID Qty: 180 RF: 3 omeprazole 40 mg capsule,delayed release(DR/EC) 40 mg PO DAILY Qty: 90 RF: 3 (DME) Handicap Placard See Rx Instructions .ROUTE .MEDSUPPLY Qty: 1 RF: 0 (DME) walker Misc See Rx Instructions .ROUTE .MEDSUPPLY Qty: 1 RF: 0 cetirizine [Zyrtec] 10 mg tablet 10 mg PO DAILY Qty: 90 RF: 1 fluticasone propionate [Flonase Allergy Relief] 50 mcg/actuation spray,suspension 2 spray INTRANASAL DAILY PRN (Reason: allergy symptoms) Qty: 15.8 RF: 1 codeine-guaifenesin 10-100 mg/5 mL liquid 5 ml PO Q6H PRN (Reason: cough) Qty: 120 RF: 0 Referrals / Follow Up: Nick Lindsey MD [Primary Care Provider] - Disposition Disposition (needs filled in before D/C Order can be placed): Home, self care Visit Charges OBSV E&M: 80302 Observation care discharge
--- NOTE | 2020-12-03 10:29 | PHA.DC.MR ---
Pharmacy Service has performed discharge medication reconciliation for this patient. The patient's discharge medication list was reviewed for discrepancies and discrepancies were resolved. Home Medications buprenorphine 15 mcg TOPICAL QWEEK MDD thurs 05/23/20 baclofen 10 mg PO TID PRN #0 07/18/20 buspirone 5 mg tablet 5 mg PO TID #180 tab 07/24/20 escitalopram oxalate 20 mg tablet 20 mg PO DAILY #90 tab 07/24/20 fenofibrate nanocrystallized 48 mg tablet 48 mg PO DAILY #90 tab 07/24/20 lisinopril 20 mg-hydrochlorothiazide 25 mg tablet 1 tab PO DAILY #90 tab 07/24/20 mv-min-vit C-ascorb Eh-Iel-Zvh-herb #124 333 mg-1.7 mg chewable tablet 1 tab PO DAILY 07/24/20 pravastatin 20 mg tablet 20 mg PO QHS #90 tab 07/24/20 aripiprazole 5 mg tablet 5 mg PO BID #180 tab 07/31/20 omeprazole 40 mg capsule,delayed release 40 mg PO DAILY #90 cap 08/07/20 Handicap Placard #1 ea 08/13/20 mirtazapine 15 mg disintegrating tablet 15 mg PO QHS #90 tab 08/14/20 levetiracetam 500 mg tablet 500 mg PO Q12H #60 tablet 10/05/20 pregabalin 75 mg capsule 75 mg PO TID cap 10/05/20 walker #1 each 10/05/20 cetirizine 10 mg tablet 10 mg PO DAILY #90 tablet 10/09/20 fluticasone propionate 50 mcg/actuation nasal spray,suspension 2 spray INTRANASAL DAILY PRN #15.8 ml 11/19/20 codeine 10 mg-guaifenesin 100 mg/5 mL oral liquid 5 ml PO Q6H PRN #120 ml 11/23/20 albuterol sulfate 2 puff INHALATION Q6H PRN #6.7 g 12/03/20 prednisone 40 mg PO DAILY 5 Days #10 tab 12/03/20
[2020-12-03 11:07] VITALS: PULSE 74; RESP 18; O2SAT 92
== END 2020-12-03 12:14 | disposition home or self-care (01) ==
LOC: ED 04:40 → MS3 07:01
PROVIDERS: Internal Medicine; Admitting Provider Family Medicine; Emergency Provider Student in an Organized Health Care Education/Training Program; PCP Internal Medicine
DX: J44.1 Chronic obstructive pulmonary disease with (acute) exacerbation (principal); I10 Essential (primary) hypertension; G62.9 Polyneuropathy, unspecified; F17.210 Nicotine dependence, cigarettes, uncomplicated; J96.91 Respiratory failure, unspecified with hypoxia; E66.9 Obesity, unspecified; E78.5 Hyperlipidemia, unspecified; G89.29 Other chronic pain; F31.9 Bipolar disorder, unspecified; G40.909 Epilepsy, unspecified, not intractable, without status epilepticus; K21.9 Gastro-esophageal reflux disease without esophagitis; F41.9 Anxiety disorder, unspecified; Z79.899 Other long term (current) drug therapy; Z68.34 Body mass index [BMI] 34.0-34.9, adult
CPT/HCPCS: 36415; 36600; 71045; 80048; 80053; 82803; 84145; 84484; 85025; 87426; 87633; 93005; 94640; 96361; 96372; 96374; 96376; 99218; 99251; 99285; J7030; A4216; G0378; G0463

== ENCOUNTER → 2020-12-25 13:20 | Outpatient (CLI) | payer MEDICAID, SELFPAY ==
[2020-11-14 08:51] VITALS: BMI 34.1
[2020-12-02 06:08] VITALS: BMI 33.5
--- NOTE | 2020-12-25 13:22 | BI_ITS ---
MAMMOGRAPHY - BILATERAL SCREENING REASON FOR EXAM: Female, 60 years old. Routine annual screening examination. PERTINENT HISTORY: Mother with breast cancer. TECHNIQUE: Digital bilateral breast summer (3D mammographic acquisition) in the CC and MLO projections. 2-D mediolateral oblique (MLO) and craniocaudad (CC) views of both breasts were obtained. CAD: Full Field Digital Mammography with Computer Added Detection was performed. COMPARISON: Comparison is made with prior outside examination dated 10/21/2017. FINDINGS: Breast Composition: There are scattered areas of fibroglandular density. There are no dominant masses or suspicious calcifications. Stable prominence of the venous structures in the axillary regions of both breasts. No other significant abnormalities are identified. There has been no significant change since the prior study. BI/SCRN MAMM (CAD)W/SUMMER BILAT IMPRESSION: Stable bilateral screening mammogram. Yearly follow-up mammogram recommended. (A) ASSESSMENT CATEGORY: BIRADS Category 2: Benign. A letter regarding these results will be sent to the patient by the facility within 30 days. Approximately 10% of breast cancers are not detected by mammography. A normal mammogram should not delay biopsy of a clinically suspicious abnormality. [id number] Electronically Signed: Kody Lakhani MD at 14:45 EDT , Service support ,
--- NOTE | 2020-12-25 13:28 | BD_ITS ---
STUDY: DUAL ENERGY X-RAY ABSORPTIOMETRY / DXA REASON FOR EXAM: Female, 60 years old. Osteopenia TECHNIQUE: Bone Mineral Density (BMD) measurements of lumbar spine and bilateral hips were obtained. COMPARISON: Comparison is made with prior study dated 01/05/2018. FINDINGS: Lumbar Spine (L1-L4): g/cm2 (1.641) / T-score (4.0) / Z-score (5.2) Findings are suggestive of normal bone density with a low fracture risk. Left Femur Total: g/cm2 (0.789) / T-score (-1.7) / Z-score (-0.8) Left Femoral Neck: g/cm2 (0.734) / T-score (-2.2) / Z-score (-0.9) Right Femur Total: g/cm2 (0.754) / T-score (-2.0) / Z-score (-1.1) Right Femoral Neck: g/cm2 (0.708) / T-score (-2.4) / Z-score (-1.1) The T-Scores on the most recent prior examination were: Lumbar Spine (L1-L4): There has been improvement of bone density since the previous examination. Left Femur Total: which represents a worsening of 2.2%. Right Femur Total: which represents a worsening of 4.7%. BD/Dexa Bone Density Study IMPRESSION: The patient is considered osteopenic as outlined below according to World [place] Organization (WHO) criteria with a high fracture risk. There has been worsening of bone density since the previous examination. Reference Information: The T-score is the number of standard deviations above or below the standard which is normal for young adults at their peak bone mineral density. The World Health Organization (WHO) interprets the T-scores as follows: Above -1 Normal bone density Between -1 and -2.5 Osteopenia Equal to / or below -2.5 Osteoporosis As a practical clinical guideline, osteopenia may be graded as follows: Mild -1 through -1.5 Moderate -1.6 through -2.0 Severe -2.1 through -2.4 The Z-score is the number of standard deviations above or below age-matched controls. A Z-score of less than -1.5 would be considered abnormal. References: 1. NIH Osteoporosis and Related Bone Diseases www osteo.org 2. International Society for Clinical Densitometry www iscd.org 3. National Osteoporosis Foundation www nof.org Electronically Signed: Kody Lakhani MD at 15:39 EDT , Service support ,
== END ==
PROVIDERS: PCP Internal Medicine; Referring Provider Internal Medicine; Visit Provider Internal Medicine
DX: Z12.31 Encounter for screening mammogram for malignant neoplasm of breast (principal); M85.80 Other specified disorders of bone density and structure, unspecified site; Z78.0 Asymptomatic menopausal state
CPT/HCPCS: 77063; 77067; 77080

== ENCOUNTER → 2021-01-29 09:36 | Outpatient (CLI) | payer MEDICAID, SELFPAY ==
[2021-01-29 09:08] VITALS: BMI 38.6
[2021-01-29 12:48] LABS: Anion Gap 3 (5-15); BUN 32 mg/dL (7-18); BUN/Creat Ratio 24.6 RATIO (10-20); Calcium,Total 9.2 mg/dL (8.5-10.1); Chloride 108 mmol/L (98-107); EST Glomerular Filtration Rate 44 mL/min (>60); Est Glom Filt Rate - Afr Amer 54 mL/min (>60); Glucose 70 mg/dL (74-106); Potassium 4.2 mmol/L (3.5-5.1); Sodium Level 142 mmol/L (136-145)
[2021-01-29 12:53] LABS: BNP,B-Type NATRIURETIC PEPTIDE 42.8 pg/mL (0-100)
== END ==
PROVIDERS: PCP Internal Medicine; Referring Provider Internal Medicine; Visit Provider Internal Medicine
DX: R06.02 Shortness of breath (principal); R60.0 Localized edema; I10 Essential (primary) hypertension
CPT/HCPCS: 36415; 80048; 83880

== ENCOUNTER 2021-02-25 05:45 | Day surgery (SDC) | payer MEDICAID, SELFPAY ==
[2021-01-29 09:08] VITALS: BMI 38.6
[2021-02-25] VITALS (8 sets, daily range): BP systolic 112–143; BP diastolic 72–91; PULSE 69–78; RESP 16–18; TEMP 35.8–36.4; O2SAT 95–99; BMI 35.5
[2021-02-25] MEDS: Lactated Ringers 1,000 ML 100 ML IV (06:31)
--- NOTE | 2021-02-25 07:30 | RAD_ITS ---
STUDY: X-RAY - LUMBAR SPINE REASON FOR EXAM: Female, 60 years old. Intraprocedural images of radiofrequency ablation. TECHNIQUE: 10 intraoperative digital documentation view(s) of the lumbar spine were obtained. COMPARISON: Lumbar spine images dated 07/18/2018. FINDINGS: Intraprocedural digital documentation images show multiple needles and the previously described posterior fusion changes. RAD/Lumbar Spine 2 or 3 Views IMPRESSION: Intraprocedural images as described above. Electronically Signed: Isrrael Parkinson MD at 9:32 EDT , Service support ,
--- NOTE | 2021-02-25 07:44 | HP.PCM_ITS ---
HPI - General HPI Narrative CASI APARICIO, is a 60 F who presents [facility] Medical History (Updated 02/21/21 @ 08:50 by Ana Mondragon) Acute conjunctivitis of both eyes Acute conjunctivitis, right eye Arthritis Asthma Bruising Chronic pain Depression Depression Dietary restriction Edema of eyelid of both eyes GI bleed High cholesterol History of edema History of pain when walking History of ulceration Hypertension Leg cramps Lower extremity edema Neuropathy right ankle surgery Seasonal allergies Seizures Shortness of breath Smoker Venous insufficiency of both lower extremities Vitamin D deficiency Walker as ambulation aid Wears glasses Wears partial dentures Home Medications buprenorphine 15 mcg TOPICAL QWEEK MDD thurs 05/23/20 [History Last Taken 02/24/21] baclofen 10 mg PO TID PRN #0 07/18/20 [Rx Last Taken 02/24/21] buspirone 5 mg tablet 5 mg PO TID #180 tab 07/24/20 [Rx Last Taken 02/24/21] escitalopram oxalate 20 mg tablet 20 mg PO DAILY #90 tab 07/24/20 [Rx Last Taken 02/24/21] fenofibrate nanocrystallized 48 mg tablet 48 mg PO DAILY #90 tab 07/24/20 [Rx Last Taken 02/24/21] pravastatin 20 mg tablet 20 mg PO QHS #90 tab 07/24/20 [Rx Last Taken 02/24/21] aripiprazole 5 mg tablet 5 mg PO BID #180 tab 07/31/20 [Rx Last Taken 02/24/21] omeprazole 40 mg capsule,delayed release 40 mg PO DAILY #90 cap 08/07/20 [Rx Last Taken 02/25/21 05:00] Handicap Placard #1 ea 08/13/20 [Rx Last Taken 02/24/21] pregabalin 75 mg capsule 75 mg PO TID cap 10/05/20 [History Last Taken 02/24/21] walker #1 each 10/05/20 [Rx Last Taken 02/24/21] cetirizine 10 mg tablet 10 mg PO DAILY #90 tablet 10/09/20 [Rx Last Taken 02/10 11/30] albuterol sulfate 90 mcg/actuation aerosol inhaler 2 puff INHALATION Q6H PRN #8.5 g 01/08/21 [Rx Last Taken 02/24/21] fluticasone propionate 50 mcg/actuation nasal spray,suspension 2 spray INTRA NASAL DAILY PRN #15.8 ml 01/08/21 [Rx Last Taken 02/24/21] levetiracetam 500 mg tablet 500 mg PO Q12H #60 tablet 01/08/21 [Rx Last Taken 02/24/21] nicotine 21mg/24hr-14mg/24hr-7mg/24hr daily transderm patches,sequentl See Rx Instructions TRANSDERMAL .COMPLEX #56 patch 01/08/21 [Rx Last Taken 02/24/21] tobramycin 0.3 % eye drops 1 drp OPHTHALMIC (EYE) Q2H #5 ml 01/24/21 [Rx Last Taken 02/24/21] comp.stocking,thigh,long,x-lrg #4 ea 01/29/21 [Rx Last Taken 02/24/21] meloxicam 15 mg tablet 15 mg PO DAILY tab 01/29/21 [History Last Taken 02/24/21] lisinopril 20 mg-hydrochlorothiazide 25 mg tablet 1 tab PO DAILY #90 tab 02/04/21 [Rx Last Taken 02/25/21 05:00] sulfacetamide sodium 10 % eye drops 1 drp OPHTHALMIC (EYE) Q2H #15 ml 02/06/21 [Rx Last Taken 02/24/21] mirtazapine 15 mg disintegrating tablet 15 mg PO QHS #90 tab 02/21/21 [Rx Last Taken 02/24/21] Allergy/AdvReac Type Severity Reaction Status Date / Time Penicillins AdvReac Severe vomiting Verified 01/29/21 09:06 aspirin AdvReac Upset Verified 01/29/21 09:06 Stomach Family History Mother Breast cancer Hypertension Hyperlipemia Cancer melanoma, lyphoma ulcers Father Diabetes Myocardial infarction, Onset Age: 67 Hypertension Depression Sister Depression Hyperlipemia Surgical History (Updated 02/21/21 @ 08:50 by Ana Mondragon) H/O: hysterectomy History of back surgery Social History household members: friend(s) Smoking Status: Current every day smoker tobacco type: cigarettes alcohol intake: never substance use type: does not use what type of physical activity do you participate in: walking frequency: 3-4 times per week Vital Signs Vital Signs Vital Signs: 02/25/21 06:17 Temperature 97.6 F L Temperature Source Temporal Pulse Rate 69 Respiratory Rate 18 Respiratory Pattern Normal Blood Pressure 113/72 Blood Pressure Mean 85 Blood Pressure Source Monitor Blood Pressure Position Semi-Fowlers Blood Pressure Location Left Arm Pulse Ox 96 Oxygen Delivery Method Room Air Weight Weight: 99.8 kg Body Mass Index (BMI) 35.5 Assessment & Plan Assessment/Plan (1) Degeneration of intervertebral disc of lumbosacral region: (2) Spondylosis of lumbosacral region without myelopathy or radiculopathy: (3) Lumbar facet arthropathy:
[2021-02-25] MEDS: 0.9% Normal Saline (Pres. free 10 ML Vial (08:15)
[2021-02-25] MEDS: MethylPREDNISolone Acetate 40 MG/ML Vial IM (08:15)
[2021-02-25] MEDS: Bupivacaine Mpf 0.5% 30 ML VIAL (08:15)
[2021-02-25] MEDS: Lidocaine 1% (30 ml sdv) 30 ML Vial (08:15)
--- NOTE | 2021-02-25 10:52 | PCM.OPRPT ---
Report of Operation Date of Procedure: 02/25/21 Pre-Operative Diagnosis: Lumbosacral spondylosis, lumbosacral degenerative disc disease, lumbar facet arthropathy Post-Operative Diagnosis: Lumbosacral spondylosis, lumbosacral degenerative disc disease, lumbar facet arthropathy Surgery/Procedure Performed:: Left-sided lumbar radiofrequency ablation of the medial branch L3, L4, L5, S1 Type of Anesthesia: MAC Estimated Blood Loss (mL): Minimal Description of Procedure: History and physical today was reviewed. Risks and benefits of procedure explained. The patient understood, agreed to the procedure and informed consent was obtained. IV inserted per routine protocol. The patient was taken to the operating room, placed in the prone position with a pillow positioned underneath the abdomen. The left side of the lower back was prepped and draped in a sterile fashion using iodine x 3. Under fluoroscopy guidance, on an oblique view, the L3 through S1 vertebral bodies were visualized. The skin and subcutaneous tissue was anesthetized with approximately 10 mL of 1% lidocaine using a 25-gauge regular needle. Under direct visualization with fluoroscopy at approximately 25-degree angle, starting on the left L3, ending on the left S1 passing through the L4-L5 using a 20-gauge 15 cm with a 10 mm curved active tip radiofrequency ablation needle the needle passed through the skin. The tip of the needle was maneuvered and directed towards the superior and medial gutter of the transverse process at the vicinity of the medial branch. Once the tip of the needle was in contact with the bone, the needle pulled approximately 2 mm up the bone. The stylet of each needle was then removed. After negative aspiration of blood with CSF and confirmation of AP as well as oblique view, radiofrequency ablation probe was then inserted at each level. Impedance was then recorded at L3 to be 293, at L4 271, at L5 303, at S1 296 ohm. Motor-evoked potential was then initiated to 1.5 volt without any motor response at each corresponding level. The probe was then removed intact and a total of 6 mL preservative-free 1% lidocaine was injected in divided doses between those 4 levels after negative aspiration of blood with CSF. The radiofrequency ablation probe was then reinserted after confirmation of AP, oblique as well as lateral view. Radiofrequency ablation was then initiated to 80 degrees Celsius for 90 seconds at each level. Once concluded, the probe was then removed intact and a total of 6 mL of preservative-free 0.25% Marcaine with 40 mg Depo-Medrol was injected in divided doses between those 4 levels. The needles were then removed intact. The patient experienced no signs or symptoms of intrathecal, intravascular injection. The patient experienced no paraesthesia. The procedure was completed without any apparent difficulty, any complication. The patient appeared to tolerate well. Sensory as well as motor exam was unchanged from prior to procedure. ASSESSMENT AND PLAN: This is a 60-year-old female with lumbosacral spondylosis, lumbosacral degenerative disc disease, lumbar facet arthropathy, status post left-sided lumbar radiofrequency ablation of the medial branch L3 through S1. The patient will continue her current medications. The patient will follow up in approximately 2 weeks for reevaluation. Complications None
== END 2021-02-25 09:25 | disposition home or self-care (01) ==
LOC: SDC 05:47 → AC 05:49
PROVIDERS: PCP Internal Medicine; Referring Provider Anesthesiology Pain Medicine; Visit Provider Anesthesiology Pain Medicine
PROC: (CPT 64635; principal; 2021-02-25 07:15)
DX: M51.37 Other intervertebral disc degeneration, lumbosacral region (principal); M47.817 Spondylosis without myelopathy or radiculopathy, lumbosacral region; M47.816 Spondylosis without myelopathy or radiculopathy, lumbar region; J45.909 Unspecified asthma, uncomplicated; E78.00 Pure hypercholesterolemia, unspecified; I10 Essential (primary) hypertension; F32.9 Major depressive disorder, single episode, unspecified; F17.210 Nicotine dependence, cigarettes, uncomplicated; Z79.899 Other long term (current) drug therapy
CPT/HCPCS: 64635; 64636; 72100; 76000; J7120; J3490

== ENCOUNTER → 2021-04-05 12:11 | Outpatient (CLI) | payer MEDICAID, SELFPAY ==
[2021-04-05 17:07] LABS: AST(SGOT) 22 U/L (15-37); Alanine Aminotransfer ALT/SGPT 26 U/L (13-56); Albumin, Serum 3.1 g/dL (3.2-5.0); Alkaline Phosphatase 55 U/L (45-117); Anion Gap 2 (5-15); BUN 27 mg/dL (7-18); BUN/Creat Ratio 23.7 RATIO (10-20); Calcium,Total 9.2 mg/dL (8.5-10.1); Chloride 105 mmol/L (98-107); Creatinine, Serum 1.14 mg/dL (0.55-1.02); EST Glomerular Filtration Rate 52 mL/min (>60); Est Glom Filt Rate - Afr Amer 62 mL/min (>60); Globulin 3.1 g/dL (2.2-4.2); Glucose 80 mg/dL (74-106); Potassium 4.3 mmol/L (3.5-5.1); Protein, Total 6.2 g/dL (6.4-8.2); Sodium Level 141 mmol/L (136-145)
== END ==
PROVIDERS: PCP Internal Medicine; Referring Provider Internal Medicine; Visit Provider Internal Medicine
DX: I10 Essential (primary) hypertension (principal)
CPT/HCPCS: 36415; 80053

== ENCOUNTER 2021-04-15 06:29 | Day surgery (SDC) | payer MEDICAID, SELFPAY ==
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
[2021-04-15 06:54] VITALS: BP 144/77; PULSE 83; RESP 16; TEMP 35.9; O2SAT 96; BMI 36.0
[2021-04-15] MEDS: Lactated Ringers 1,000 ML 100 ML IV (06:59)
--- NOTE | 2021-04-15 08:08 | RAD_ITS ---
INDICATION: RADIO FREQ ABLATION L3-S1, RIGHT EXAMINATION/TECHNIQUE: X-RAY - XR Spine Lumbar 2 or 3 Views COMPARISON: 02/25/2021.. TOTAL FLUOROSCOPY TIME: 25.1 seconds. TOTAL FLUOROSCOPY DOSE: 14.54 mGy FINDINGS: 10 spot fluoroscopic images were obtained intraoperatively demonstrating 4 needles superimposed along the location of the right L3, L4, L5 and S1 nerve roots, no radiologist was present for the procedure, please refer to operative report for details. Bipedicular posterior internal fixation of the L3, L4, L5 and S1 vertebral bodies is seen. Intervertebral disc spacer visualized at L5-S1. Preserved vertebral body height. No compression deformity of the lumbar vertebral bodies, suggestion of subtle retrolisthesis of L3 over L4 RAD/Lumbar Spine 2 or 3 Views IMPRESSION: Radiofrequency ablation of the right L3 to S1 nerve roots, no radiologist was present for the procedure, please refer to operative report for detail. Electronically Signed: Ramos Gaona MD at 12:23 EDT Tel , Service support ,
[2021-04-15] MEDS: Lidocaine 1% (30 ml sdv) 30 ML Vial (08:14)
[2021-04-15] MEDS: Bupivacaine 0.25% 30 ML Vial (08:14)
[2021-04-15] MEDS: MethylPREDNISolone Acetate 40 MG/ML Vial IM (08:14)
[2021-04-15 08:30] VITALS: BP 116/84; BP 144/77; PULSE 71; RESP 16; TEMP 36.1; O2SAT 97
[2021-04-15 08:35] VITALS: BP 112/77; BP 144/77; PULSE 67; RESP 18; O2SAT 96
[2021-04-15 08:40] VITALS: BP 144/77; BP 98/75; PULSE 74; RESP 16; O2SAT 94
[2021-04-15 08:45] VITALS: BP 110/76; BP 144/77; PULSE 68; RESP 16; O2SAT 93
[2021-04-15 08:49] VITALS: BP 117/83; BP 144/77; PULSE 74; RESP 16; TEMP 35.9; O2SAT 94
--- NOTE | 2021-04-15 15:24 | PCM.OPRPT ---
Report of Operation Date of Procedure: 04/15/21 Pre-Operative Diagnosis: Lumbosacral spondylosis, lumbosacral degenerative disc disease, lumbar facet arthropathy Post-Operative Diagnosis: Lumbosacral spondylosis, lumbosacral degenerative disc disease, lumbar facet arthropathy Surgery/Procedure Performed:: Right-sided lumbar radiofrequency ablation of the medial branch L3, L4, L5, S1 Type of Anesthesia: MAC Estimated Blood Loss (mL): Minimal Description of Procedure: History and physical today was reviewed. Risks and benefits of procedure explained. The patient understood, agreed to the procedure and informed consent was obtained. IV inserted per routine protocol. The patient was taken to the operating room, placed in the prone position with a pillow positioned underneath the abdomen. The right side of the lower back was prepped and draped in a sterile fashion using iodine x 3. Under fluoroscopy guidance, on an oblique view, the L3 through S1 vertebral bodies were visualized. The skin and subcutaneous tissue was anesthetized with approximately 10 mL of 1% lidocaine using a 25-gauge regular needle. Under direct visualization with fluoroscopy at approximately 25-degree angle, starting on the right L3, ending on the right S1 passing through the L4-L5 using a 20-gauge 15 cm with a 10 mm curved active tip radiofrequency ablation needle the needle passed through the skin. The tip of the needle was maneuvered and directed towards the superior and medial gutter of the transverse process at the vicinity of the medial branch. Once the tip of the needle was in contact with the bone, the needle pulled approximately 2 mm up the bone. The stylet of each needle was then removed. After negative aspiration of blood with CSF and confirmation of AP as well as oblique view, radiofrequency ablation probe was then inserted at each level. Impedance was then recorded at L3 to be 334, at L4 250, at L5 201, at S1 271 ohm. Motor-evoked potential was then initiated to 1.5 volt without any motor response at each corresponding level. The probe was then removed intact and a total of 6 mL preservative-free 1% lidocaine was injected in divided doses between those 4 levels after negative aspiration of blood with CSF. The radiofrequency ablation probe was then reinserted after confirmation of AP, oblique as well as lateral view. Radiofrequency ablation was then initiated to 80 degrees Celsius for 90 seconds at each level. Once concluded, the probe was then removed intact and a total of 6 mL of preservative-free 0.25% Marcaine with 40 mg Depo-Medrol was injected in divided doses between those 4 levels. The needles were then removed intact. The patient experienced no signs or symptoms of intrathecal, intravascular injection. The patient experienced no paraesthesia. The procedure was completed without any apparent difficulty, any complication. The patient appeared to tolerate well. Sensory as well as motor exam was unchanged from prior to procedure. ASSESSMENT AND PLAN: This is a 60-year-old female with lumbosacral spondylosis, lumbosacral degenerative disc disease, lumbar facet arthropathy, status post right-sided radiofrequency ablation of the medial branch L3 through S1. The patient will continue her current medications. The patient will follow up in approximately 2 weeks for reevaluation. Complications None
== END 2021-04-15 09:08 | disposition home or self-care (01) ==
LOC: SDC 06:31 → AC 06:32
PROVIDERS: PCP Internal Medicine; Referring Provider Anesthesiology Pain Medicine; Visit Provider Anesthesiology Pain Medicine
PROC: (CPT 64635; principal; 2021-04-15 08:05)
DX: M51.17 Intervertebral disc disorders with radiculopathy, lumbosacral region (principal); M47.27 Other spondylosis with radiculopathy, lumbosacral region; M46.96 Unspecified inflammatory spondylopathy, lumbar region; M96.1 Postlaminectomy syndrome, not elsewhere classified; M79.10 Myalgia, unspecified site; M43.16 Spondylolisthesis, lumbar region; M46.1 Sacroiliitis, not elsewhere classified; M54.2 Cervicalgia; I10 Essential (primary) hypertension; E78.5 Hyperlipidemia, unspecified; M19.90 Unspecified osteoarthritis, unspecified site; J45.909 Unspecified asthma, uncomplicated; K21.9 Gastro-esophageal reflux disease without esophagitis; F17.210 Nicotine dependence, cigarettes, uncomplicated; Z79.1 Long term (current) use of non-steroidal anti-inflammatories (NSAID); Z79.891 Long term (current) use of opiate analgesic; Z79.899 Other long term (current) drug therapy; Z87.11 Personal history of peptic ulcer disease
CPT/HCPCS: 01936; 64635; 64636 ×2; 72100; 76000; J7120

== ENCOUNTER 2021-08-14 18:51 | Emergency (ER) | payer MEDICAID, SELFPAY ==
[2021-08-14 18:52] VITALS: BP 153/104; PULSE 62; RESP 16; TEMP 36.4; O2SAT 94; BMI 33.4
--- NOTE | 2021-08-14 19:24 | CT_ITS ---
STUDY: CT BRAIN WITHOUT CONTRAST REASON FOR EXAM: Female, 61 years old. Seizure RADIATION DOSAGE (If Supplied By Facility): CTDIvol = ( 44.99 ) mGy, DLP = ( 829.85 ) mGycm TECHNIQUE: Transaxial CT imaging of the brain was performed without administration of intravenous contrast material. Individualized dose optimization techniques were used for this CT. COMPARISON: August 09, 2020 FINDINGS: Normal soft tissue structures. Normal calvarium. Normal size ventricles and extra-axial spaces for the patient''s age. Normal white matter tracts of the cerebral hemispheres. Normal basal ganglia and thalami. Normal brainstem. Normal cerebellum. There is no intracranial hemorrhage. There are no findings of an acute ischemic infarction. Normal visualized paranasal sinuses. CT/Brain/Head without Contrast IMPRESSION: Normal unenhanced CT scan of the brain. Electronically Signed: Rajan Yanez MD at 20:18 EST ,
--- NOTE | 2021-08-14 19:24 | CT_ITS ---
STUDY: CT CERVICAL SPINE WITHOUT CONTRAST REASON FOR EXAM: Female, 61 years old. Neck pain after seizure RADIATION DOSAGE (If Supplied By Facility): CTDIvol = ( 26.75 ) mGy, DLP = ( 475.82 ) mGycm TECHNIQUE: High resolution transaxial imaging was performed without contrast material. Sagittal and coronal images were reconstructed. Individualized dose optimization techniques were used for this CT. COMPARISON: None FINDINGS: Normal craniovertebral junction. Normal anterior atlantoaxial articulation. Normal odontoid process. There is straightening of the normal cervical lordosis. There is no acute fracture. Normal vertebral bodies and posterior osseous elements. C2-3: Normal endplates. Normal disc height and morphology. Normal central canal and intervertebral neuroforamina. C3-4: Normal endplates. Normal disc height and morphology. Normal central canal and intervertebral neuroforamina. C4-5: Disc bulge and spurring. Normal central canal and intervertebral neuroforamina. C5-6: Disc bulge and spurring. Normal central canal and intervertebral neuroforamina. C6-7: Normal endplates. Normal disc height and morphology. Normal central canal and intervertebral neuroforamina. C7-T1: Normal endplates. Normal disc height and morphology. Normal central canal and intervertebral neuroforamina. Normal visualized soft tissue structures. There are atherosclerotic calcifications. CT/Spine Cervical without Contras IMPRESSION: Mild degenerative change. No fracture. Electronically Signed: Rajan Yanez MD at 20:24 EST Reading Location ID and State: [address] [place] [address] , Service support ,
--- NOTE | 2021-08-14 19:27 | EX.ED.DYSGE1 ---
HPI History of Present Illness Chief Complaint: Seizure Detail of Chief Complaint: Seizure and complaint of neck pain Informant: patient Narrative Narrative: Patient presents to the emergency department from home via EMS after having a seizure today. Patient is under clear as to what happened or how long the seizure may have lasted. She does have seizure history. She denies recent illness. She has been compliant with her Keppra. Patient states that she remembers waking up on the toilet and then she walked out into the hallway and had a friend called EMS for her. Patient complains of neck pain but is unsure if she fell. She denies headache which she states normally after seizure she has a headache. Patient denies chest pain or abdominal pain. Prior similar symptoms: Yes PFSH [facility] Medical History (Updated 08/14/21 @ 20:[address] Swapnil Trinidad, DO) Acute conjunctivitis of both eyes Acute conjunctivitis, right eye Arthritis Asthma Bruising Chronic pain Colon cancer screening Depression Depression Dietary restriction Edema of eyelid of both eyes Flu vaccine need GI bleed High cholesterol History of edema History of pain when walking History of ulceration Hypertension Leg cramps Lower extremity edema Neuropathy right ankle surgery Seasonal allergies Seizures Shortness of breath Smoker Tobacco abuse Venous insufficiency of both lower extremities Vitamin D deficiency Walker as ambulation aid Wears glasses Wears partial dentures Home Medications buprenorphine 15 mcg TOPICAL QWEEK MDD thurs 05/23/20 [History Last Taken 02/24/21] Handicap Placard #1 ea 08/13/20 [Rx Last Taken 02/24/21] pregabalin 75 mg capsule 75 mg PO TID cap 10/05/20 [History Last Taken 02/24/21] walker #1 each 10/05/20 [Rx Last Taken 02/24/21] comp.stocking,thigh,long,x-lrg #4 ea 01/29/21 [Rx Last Taken 02/24/21] albuterol sulfate 90 mcg/actuation aerosol inhaler 2 puff INHALATION Q6H PRN #8.5 g 04/11/21 [Rx Last Taken Unknown] aripiprazole 5 mg tablet 5 mg PO BID #180 tab 04/11/21 [Rx Last Taken Unknown] baclofen 20 mg tablet 10 mg PO TID PRN #30 tab 04/11/21 [Rx Last Taken Unknown] escitalopram oxalate 20 mg tablet 20 mg PO DAILY #90 tab 04/11/21 [Rx Last Taken Unknown] fenofibrate nanocrystallized 48 mg tablet 48 mg PO DAILY #90 tab 04/11/21 [Rx Last Taken Unknown] fluticasone propionate 50 mcg/actuation nasal spray,suspension 2 spray INTRANASAL DAILY PRN #15.8 ml 04/11/21 [Rx Last Taken Unknown] levetiracetam 500 mg tablet 500 mg PO Q12H #60 tablet 04/11/21 [Rx Last Taken Unknown] lisinopril 20 mg-hydrochlorothiazide 25 mg tablet 1 tab PO DAILY #90 tab 04/11/21 [Rx Last Taken 04/15/21 04:30] mirtazapine 15 mg disintegrating tablet 15 mg PO QHS #90 tab 04/11/21 [Rx Last Taken Unknown] omeprazole 40 mg capsule,delayed release 40 mg PO DAILY #90 cap 04/11/21 [Rx Last Taken Unknown] nicotine 21 mg/24 hr daily transdermal patch 1 patch TRANSDERMAL DAILY #28 ea 06/04/21 [Rx Last Taken Unknown] buspirone 5 mg PO TID 08/14/21 [History Last Taken Unknown] cetirizine [Zyrtec] 10 mg PO DAILY PRN 08/14/21 [History Last Taken Unknown] Allergy/AdvReac Type Severity Reaction Status Date / Time Penicillins AdvReac Severe vomiting Verified 08/14/21 19:35 aspirin AdvReac Upset Verified 08/14/21 19:35 Stomach Family History Mother Breast cancer Hypertension Hyperlipemia Cancer melanoma, lyphoma ulcers Father Diabetes Myocardial infarction, Onset Age: 67 Hypertension Depression Sister Depression Hyperlipemia Surgical History H/O: hysterectomy History of back surgery Social History household members: friend(s) Smoking Status: Current every day smoker tobacco type: cigarettes alcohol intake: never substance use type: does not use what type of physical activity do you participate in: walking frequency: 3-4 times per week ROS ROS ED ROS Narrative Seizure Constitutional Constitutional ED: Reports systems reviewed and no addt'l complaints, except as documented; Denies body ache(s), change in weight or chills Eyes Eyes: Denies acute decrease in peripheral vision, change in vision, double vision or loss of vision ENT ENT ED: Reports none; Denies ear pain, lip swelling, loss taste/smell, neck pain, otalgia or sore throat Cardiovascular Cardiovascular: Reports none; Denies abdominal pain, chest pain with activity, leg edema, lightheadedness, palpitations, rapid heart rate or syncope Respiratory/Chest Respiratory/Chest: Reports none; Denies change in mental status, dry cough, dyspnea, hemoptysis, shortness of breath at rest or shortness of breath with exertion Gastrointestinal Gastrointestinal: Reports none; Denies abdominal pain, change in stool character, diarrhea, hematemesis, hematochezia, melena, rectal bleeding or vomiting Genitourinary Genitourinary ED: Reports none; Denies abdominal discomfort, anuria, dysuria, genital pain or polyuria Musculoskeletal Musculoskeletal: Reports none and neck pain; Denies arthralgias, back pain, difficulty walking, extremity pain, muscle weakness or myalgias Integumentary Reports none; Denies abscess or rash Neurologic Neurologic: Reports none; Denies abnormal gait, confusion, focal weakness, frequent falls, headache(s), loss of vision, numbness, paresthesias, radicular pain, vertigo or weakness Psychiatric Psychiatric: Reports systems reviewed and no addt'l complaints, except as documented and none; Denies behavioral changes, confusion, difficulty concentrating, hallucinations, suicidal ideation, tactile hallucinations or visual hallucinations Endocrine Endocrinology: Denies none, cold intolerance, excessive sweating, fatigue or heat intolerance Hematologic/Lymphatic Hematologic/Lymphatic: Reports none; Denies anemia, easy bleeding or easy bruising Allergic/Immunologic Allergic/Immunologic ED: Denies as per HPI, none, lip swelling, mouth swelling, throat swelling, tongue swelling or hives EXAM Physical Exam Const Vital Signs: 08/14/21 18:52 Temperature 97.5 F L Temperature Source Temporal Pulse Rate 62 Respiratory Rate 16 Blood Pressure 153/104 H Blood Pressure Mean 120 Pulse Ox 94 Oxygen Delivery Method Room Air Positive well nourished and well developed General Appearance ED: well developed and NAD HEENT Reports TM's clear and moist mucous membranes normocephalic and atraumatic; Negative for trauma or tenderness Tympanic Membrane ED: Yes TM's clear Eyes PERRL and EOMs intact bilaterally General Eye ED: Negative for pale conjunctiva or scleral icterus Neck no lymphadenopathy, supple and no JVD Neck Narrative: Patient with diffuse C-spine tenderness on palpation. She does have a c-collar in place. General: tenderness Chest Wall inspection of chest normal and palpation of chest normal Chest: Negative for tenderness Resp normal respiratory effort and clear to auscultation bilaterally Effort and Inspection: Negative for respiratory distress or pain with movement Auscultation: Negative for rhonchi, wheezes or diminished lung sounds Cardio regular rate, regular rhythm, S1 normal heart sound, S2 normal heart sound and no murmurs Peripheral Pulses: pulses 2+ throughout GI normal to inspection, nondistended, normoactive bowel sounds, soft to palpation, non-tender, non-distended and no masses Back/Spine no CVA tenderness and no thoracic nor lumbar tenderness Extremity normal to inspection General Extremety ED: Negative for edema General Extremity: Negative for edema Neuro oriented x3, CN's II-XII intact bilaterally, no sensory deficits noted and gait normal Sensorium / Orientation: awake, alert, oriented to person, oriented to place and oriented to time Motor Exam: strength 5/5 throughout and strength abnormal Psych mental status grossly normal Skin no rashes or lesions noted and no wounds MDM MDM MDM Narrative Medical decision making narrative: IV line established on arrival. Patient had a CT scan of the brain was unremarkable. Patient also had a CT of the C-spine which showed no acute fractures. Lab work was unremarkable. Lab Data Attestation: I reviewed the patient's lab results. Labs: Laboratory Results - last 24 hr 08/14/21 08/14/21 19:25 19:25 WBC 6.1 RBC 4.70 Hgb 13.2 Hct 40.2 MCV 85.5 MCH 28.1 MCHC 32.8 RDW Std Deviation 45.3 H RDW Coeff of Dyana 14.4 Plt Count 207 MPV 11.3 Immature Gran % (Auto) 0.200 Neut % (Auto) 57.1 Lymph % (Auto) 31.9 Prowers % (Auto) 7.5 Eos % (Auto) 2.3 Baso % (Auto) 1.0 Absolute Neuts (auto) 3.5 Absolute Lymphs (auto) 1.95 Nucleated RBC % 0 Sodium 140 Potassium 3.6 Chloride 105 Carbon Dioxide 30.0 Anion Gap 5 BUN 37 H Creatinine 1.75 H Estim Creat Clear Calc 31.60 Est GFR (MDRD) Af Amer 38 L Est GFR (MDRD) Non-Af 31 L BUN/Creatinine Ratio 21.1 H Glucose 106 Calcium 8.9 Radiography Diagnostic Testing: Clinical Impression(s) from Imaging Studies Brain CT 08/14/21 19:24 IMPRESSION: Normal unenhanced CT scan of the brain. Electronically Signed: Rajan Yanez MD at 20:18 EST Reading Location ID and State: [facility] / [place] , Service support , Cervical Spine CT 08/14/21 19:24 IMPRESSION: Mild degenerative change. No fracture. Electronically Signed: Rajan Yanez MD at 20:24 EST Reading Location ID and State: [facility] / [place] , Service support , Discharge Plan Triage Chief Complaint: Seizure ED Provider: Swapnil Trinidad Dx/Rx/DC Orders Clinical Impression: Seizure, Cervical strain Instructions: ED Neck Sprain or Strain, ED Seizure, Recurrent (Adult) Prescriptions: No Action pregabalin 75 mg capsule 75 mg PO TID RF: 0 (DME) comp.stocking,thigh,long,x-lrg Misc See Rx Instructions .ROUTE .MEDSUPPLY Qty: 4 RF: 2 buprenorphine 1 EACH patch weekly 15 mcg TOPICAL QWEEK MDD thurs RF: 0 buspirone 5 mg tablet 5 mg PO TID RF: 0 cetirizine [Zyrtec] 10 mg tablet 10 mg PO DAILY PRN (Reason: Congestion) RF: 0 (DME) Handicap Placard See Rx Instructions .ROUTE .MEDSUPPLY Qty: 1 RF: 0 (DME) walker Misc See Rx Instructions .ROUTE .MEDSUPPLY Qty: 1 RF: 0 albuterol sulfate 90 mcg/actuation HFA aerosol inhaler 2 puff inhalation Q6H PRN (Reason: shortness of breath or wheezing) Qty: 8.5 RF: 2 aripiprazole 5 mg tablet 5 mg PO BID Qty: 180 RF: 3 baclofen 20 mg tablet 10 mg PO TID PRN (Reason: Spasms) Qty: 30 RF: 1 escitalopram oxalate 20 mg tablet 20 mg PO DAILY Qty: 90 RF: 3 fenofibrate nanocrystallized 48 mg tablet 48 mg PO DAILY Qty: 90 RF: 3 fluticasone propionate [Flonase Allergy Relief] 50 mcg/actuation spray,suspension 2 spray INTRANASAL DAILY PRN (Reason: allergy symptoms) Qty: 15.8 RF: 1 levetiracetam [Keppra] 500 mg tablet 500 mg PO Q12H Qty: 60 RF: 1 lisinopril-hydrochlorothiazide 20-25 mg tablet 1 tab PO DAILY Qty: 90 RF: 1 mirtazapine 15 mg tablet,disintegrating 15 mg PO QHS Qty: 90 RF: 1 omeprazole 40 mg capsule,delayed release(DR/EC) 40 mg PO DAILY Qty: 90 RF: 3 nicotine 21 mg/24 hr patch 24 hour 1 patch transdermal DAILY Qty: 28 RF: 1 Primary Care Provider: Nick Lindsey Referrals: Nick Lindsey MD [Primary Care Provider] - Disposition Disposition: Home, Self Care
[2021-08-14 19:45] LABS: Absolute Lymphocyte Count 1.95 X10^3/uL (0.83-4.51); Absolute Neutrophil Count 3.5 X10^3/uL (2.0-7.7); Basophil# 0.06 X10^3/uL; Eosinophil# 0.14 X10^3/uL; Eosinophils% 2.3 % (0-5); Hematocrit 40.2 % (37-47); Hemoglobin 13.2 g/dL (12.0-15.0); Lymphocyte # 1.95 X10^3/ul (0.83-4.51); Lymphocyte % 31.9 % (19-41); Mean Corp Hgb Conc 32.8 g/dL (32-36); Mean Corpuscular Hgb 28.1 pg (27.0-32.0); Mean Corpuscular Volume 85.5 fL (81-99); Mean Platelet Vol. 11.3 fl (6.2-12.0); Monocyte# 0.46 X10^3/uL; Monocyte% 7.5 % (0-10); NRBC Flagged by Analyzer 0 % (0-5); Neutrophil % 57.1 % (47-70); Platelet Count 207 K/mm3 (150-450); RBC Distribution Width CV 14.4 % (11.6-14.6); RBC Distribution Width SD 45.3 fl (35.1-43.9); White Blood Count 6.1 K/mm3 (4.4-11.0)
[2021-08-14 19:58] LABS: Anion Gap 5 (5-15); BUN 37 mg/dL (7-18); BUN/Creat Ratio 21.1 RATIO (10-20); Calcium,Total 8.9 mg/dL (8.5-10.1); Chloride 105 mmol/L (98-107); Creatinine, Serum 1.75 mg/dL (0.55-1.02); EST Glomerular Filtration Rate 31 mL/min (>60); Est Glom Filt Rate - Afr Amer 38 mL/min (>60); Glucose 106 mg/dL (74-106); Potassium 3.6 mmol/L (3.5-5.1); Sodium Level 140 mmol/L (136-145)
[2021-08-14 20:45] VITALS: BP 95/58; PULSE 56; RESP 16; O2SAT 91
== END 2021-08-14 22:10 | disposition home or self-care (01) ==
PROVIDERS: Emergency Provider Emergency Medicine; PCP Internal Medicine; Visit Provider Emergency Medicine
DX: R56.9 Unspecified convulsions (principal); S16.1XXA Strain of muscle, fascia and tendon at neck level, initial encounter; E78.00 Pure hypercholesterolemia, unspecified; I10 Essential (primary) hypertension; Z79.899 Other long term (current) drug therapy; M19.90 Unspecified osteoarthritis, unspecified site; J45.909 Unspecified asthma, uncomplicated; G89.29 Other chronic pain; F32.A Depression, unspecified; F17.210 Nicotine dependence, cigarettes, uncomplicated; X58.XXXA Exposure to other specified factors, initial encounter; Y93.9 Activity, unspecified; Y99.9 Unspecified external cause status; Y92.9 Unspecified place or not applicable
CPT/HCPCS: 70450; 72125; 80048; 85025; 99285; A4216

== ENCOUNTER 2021-09-03 14:03 | Outpatient (CLI) | payer MEDICAID, SELFPAY ==
[2021-09-03 16:03] LABS: Anion Gap 6 (5-15); BUN 28 mg/dL (7-18); BUN/Creat Ratio 27.5 RATIO (10-20); Calcium,Total 9.4 mg/dL (8.5-10.1); Chloride 104 mmol/L (98-107); Creatinine, Serum 1.02 mg/dL (0.55-1.02); EST Glomerular Filtration Rate 59 mL/min (>60); Est Glom Filt Rate - Afr Amer 71 mL/min (>60); Glucose 80 mg/dL (74-106); Potassium 4.1 mmol/L (3.5-5.1); Sodium Level 141 mmol/L (136-145)
[2021-09-09 13:20] LABS: KEPPRA (LEVETIRACETAM) 37.8 ug/mL (10.0-40.0)
== END 2021-09-03 23:59 | disposition home or self-care (01) ==
LOC: BIMLAB 14:04
PROVIDERS: PCP Internal Medicine; Referring Provider Nurse Practitioner Family; Visit Provider Nurse Practitioner Family
DX: N18.30 Chronic kidney disease, stage 3 unspecified (principal); G40.909 Epilepsy, unspecified, not intractable, without status epilepticus
CPT/HCPCS: 36415; 80048; 80177

== ENCOUNTER → 2021-12-12 | Outpatient (CLI) | payer MEDICAID, SELFPAY ==
--- NOTE | 2021-12-12 10:41 | MRI_ITS ---
EXAM: MR HEAD WITHOUT INTRAVENOUS CONTRAST CLINICAL INDICATION: Epilepsy seizure TECHNIQUE: Multiplanar and multisequence MR images of the brain were obtained without intravenous contrast. This report was created using [employer] report generation technology. COMPARISON: Aug 14 2021 7:49pmct and mri of Jul 18 2020 10:12am FINDINGS: BRAIN AND EXTRA-AXIAL SPACES: Mild cerebellar ectopia. No intra- or extra-axial hemorrhage. No evidence of acute infarct. No intracranial mass or mass effect. There is preservation of the welch/white matter interface. Ventricles are appropriate for age. No hydrocephalus. Basal cisterns are patent. SELLA: Unremarkable. Normal sella turcica, pituitary gland, infundibular stalk, optic chiasm and hypothalamus. AUDITORY SYSTEM: Unremarkable. The internal auditory canals are patent. BONES/JOINTS: Unremarkable. No discrete lytic or blastic abnormalities. SINUSES: Unremarkable as visualized. Clear. MASTOID AIR CELLS: Unremarkable as visualized. Clear. ORBITS: Unremarkable as visualized. Both globes, extraocular muscles, optic nerves and retrobulbar fat appear unremarkable. VASCULATURE: Unremarkable as visualized. Normal flow voids in the major intracranial circulation. MRI/Brain without Contrast IMPRESSION: Mild cerebellar ectopia. Electronically Signed: Dylan Hendrickson MD at 18:27 EDT ,
[2021-12-12 11:21] LABS: CREATININE FINGERSTICK < 0.9 mg/dL (0.55-1.02); EGFR FINGERSTICK > 60.0000 mL/min (>60)
== END | disposition home or self-care (01) ==
LOC: MRI 10:41
PROVIDERS: PCP Internal Medicine; Referring Provider Psychiatry & Neurology Neurology; Visit Provider Psychiatry & Neurology Neurology
DX: G40.909 Epilepsy, unspecified, not intractable, without status epilepticus (principal)
CPT/HCPCS: 70551

== ENCOUNTER → 2021-12-20 | Outpatient (CLI) | payer MEDICAID, SELFPAY | END | disposition home or self-care (01) | LOC: PSN 08:16 | PROVIDERS: PCP Internal Medicine; Referring Provider Psychiatry & Neurology Neurology; Visit Provider Psychiatry & Neurology Neurology | DX: G40.909 Epilepsy, unspecified, not intractable, without status epilepticus (principal) | CPT/HCPCS: 95819 ==

== ENCOUNTER 2021-12-31 12:30 | Outpatient (RCR) | payer MEDICAID, SELFPAY ==
--- NOTE | 2021-11-13 12:51 | HP.PTEVAL_ITS ---
Patient's Visit Information CASI APARICIO is a 61 year old F referred to Physical Therapy by LACEY Morales with a diagnosis of CERVICAL SPINE PAIN. Date of Evaluation: 11/13/21 Physical Therapist: Falguni Palma PT, Cert MDT - Visit Plan Frequency: 2-3x /Week Duration: 4-6 Weeks Plan: EVAL ONLY. CHECK AUTH. *SEIZURE DISORDER*. NO MANUAL THERAPY. START WITH SUBMAX CERVICAL ISO'S AND NEUTRAL SPINE. PATIENT IS APPREHENSIVE ABOUT HAVING PHYSICAL THERAPY. POSTURE CORRECTION/STRENGTHENING, INSTRUCTION IN APPROPRIATE BODY MECHANICS AND ACTIVITY MODIFICATIONS. GRAHAM UE ROM, STRETCHING AND STRENGTHENING. HEP INSTRUCTION. - Subjective Work/Leisure: TOOK EARLY [employer] DUE TO BACK CONDITION. Present symptoms: GRAHAM NECK PAIN L>R. GRAHAM UT PAIN. DENIES GRAHAM UE PAIN, NUMBNESS AND TINGLING. Present since: CHRONIC BUT GETTING WORSE AND HAS BEEN MORE SEVERE FOR A FEW MONTHS. Pain Scale: Worst - 10/10 Least - 0/10. Currently: 11/19. Commenced as a result of: NO APPARENT REASON BUT INCREASED AFTER A FALL COUPLE MONTHS AGO. FELL IN KITCHEN AND HIT CHIN. NO INJURIES IN FALL AND NECK DIDN'T HURT RIGHT AWAY BUT THAT IS ALL SHE CAN RELATE THE INCREASED PAIN TO. Worse: PUTTING HEAD DOWN, SITTING WITH HEAD TURNED. READING. Better: MUSCLE RELAXERS AND GOING TO BED. Disturbed sleep: NO. Previous history/Previous treatment: NO NECK SURGERY. NO NECK INJECTIONS. NO CHIROPRACTIC. DENIES PRIOR NECK TREATMENTS. This episode: MUSCLE RELAXERS. Dizziness: NO. Tinnitis: NO. Nausea: NO. Shortness of Breath: NO. Difficulty Swollowing: NO. Gait: NO NEW DIFFICULTY WALKING BUT HAS HAD BACK SURGERY AND WALKS WITH ROLLATOR. Accidents: H/O FALL BUT DOES NOT TYPICALLY FALL. Unexplained weight loss: NO. Imaging: RECENT CERVICAL CAT SCAN AT [facility] AFTER FALL: central canal and intervertebral neuroforamina. C4-5: Disc bulge and spurring. Normal central canal and intervertebral. neuroforamina. C5-6: Disc bulge and spurring. Normal central canal and intervertebral. neuroforamina. C6-7: Normal e ndplates. Normal disc height and morphology. Normal. central canal and intervertebral neuroforamina. C7-T1: Normal endplates. Normal disc height and morphology. Normal. central canal and intervertebral neuroforamina. Normal visualized soft tissue structures. There are atherosclerotic. calcifications. . CT/Spine Cervical without Contras. IMPRESSION: Mild degenerative change. No fracture. . Electronically Signed: Rajan Yanez MD. at 20:24 EST. Reading Location ID and State: [id number] / [place]. PMH/Recent major surgery: HTN, SEIZURES - LAST ONE WAS ABOUT A YEAR AGO - ON MEDICATION, H/O LOW BACK SURERIES 1998, 2014, COPD. OA. OTHER: PATIENT REPORTS SHE IS IN A HURRY TO GET HOME BEFORE HER NECK STARTS HURTING MORE. - Objective Sitting Posture/Standing Posture: POOR. FH. RSH'S. Active Correction of posture: BETTER. Other Observations: INDEP SLOW GAIT INTO PT WITH ROLLATOR. INDEP TRANSFERS. Sensory deficit: GRAHAM UE LIGHT TOUCH SENSATION IS GROSSLY INTACT AND SYMMETRICAL. ROM deficit: DECREASED ACTIVE ELEVATION OF GRAHAM UE'S BY APPROX 50% LEFT AND 30% RIGHT. Motor deficit: RIGHT HAND DOMINANT WITH A RIGHT INSTRUMENT REPAIRER HELPER STRENGTH OF 10 LBS AND LEFT 6 LBS. GRAHAM UE WEAKNESS GROSSLY 3+ TO 4-/5/5. Dural Signs: NEGATIVE GRAHAM UE'S. Cervical Mvmt Loss: Flex: NIL. Pro: NIL. Ext: ARTHUR. Ret: ARTHUR. RSB: MOD. LSB: MOD. R Rot: MOD. L Rot: MOD. PATIENT C/O INCREASED NECK PAIN WITH CERVICAL ROM TESTING ALL PLANES. Postural strength: POOR. Palpation: PATIENT REFUSED. TREATMENT: THER ACT: INSTRUCTED PATIENT IS SUB MAX CERVICAL ISO'S ALL PLANES; 3 REPS EA, 3 SEC EA, 3 TIMES A DAY. POSTURE CORRECTION AND ENCOURAGED USE OF LUMBAR SUPPORT IN SITTING. PATIENT DEMONSTRATED AND COMMUNICATED A GOOD UNDERSTANDING OF ALL INSTRUCTIONS AFTER GIVEN. - Balance/Special Test Scores Oswestry Neck Score: 24 - Goals Goal 1:: DECREASE C/O NECK/SHLD PAIN Goal Time Frame: 4-6 Weeks Goal 2:: IMPROVE PERSONAL CARE, LIFTING, READING, DRIVING AND ADL FUNCTION. Goal Time Frame: 4-6 Weeks Goal 3:: INSTRUCT IN PROPHYLAXIS Goal Time Frame: 4-6 Weeks - Anticipated Interventions Patient/Client Instruction: Educate patient on: Condition, Plan of Care, Risk Factors For the Purpose of:: To improve self management Therapeutic Exercise to Include: Strength training, Body mechanics, Postural training, Flexibilty training, Neuromotor development, Scapular Strength/Stabilization For the Purpose of:: To decrease pain, To increase ROM, To improve muscle performance and motor function, To increase tolerance to activity/condition/position, To improve ability of physical actions for home/community/work/leisure Cryotherapy (ice pack, ice massage): Yes Thermo therapy (hot pack): Yes Ultrasound (thermal/non thermal): Yes For the Purpose of:: To decrease pain, To improve nutrient delivery to tissue Thank you for the opportunity to evaluate your patient. For Medicare and Medicare HMO plans, please review the plan of care and approve it. It will need to be FAXED BACK to us at [phone] for Medicare purposes. For Medicare only, by signing this I certify the plan of care. Please let me know if there are questions or concerns regarding this plan of care. Physician Signature: Date:
--- NOTE | 2021-12-31 12:58 | HP.PTDCSUM_ITS ---
It has been my pleasure to treat CASI APARICIO referred by LACEY Morales, with the diagnosis of CERVICAL SPINE PAIN for a total of 6 visit(s). Discharge Date: 12/31/21 Please see the following information for a summary of their discharge status. Subjective: This patient presents to PT today with a new PT order for her low back. She reports her neck pain is 100% better and she wants to be discharged for her neck and be seen for her low back and legs today. She reports she can continue the neck ex's on her own. % Improvement: 100 Objective/Function: HEP check. Patient continues to have poor posture and only able to partially correct with cueing but she denies pain and is indep with a HE P. Goal 1:: DECREASE C/O NECK/SHLD PAIN Goal Progress: Goal Met Goal 2:: IMPROVE PERSONAL CARE, LIFTING, READING, DRIVING AND ADL FUNCTION. Goal Progress: Goal Met Goal 3:: INSTRUCT IN PROPHYLAXIS Goal Progress: Goal Met Plan: D/C to hep at patients request. If there are questions or concerns regarding this patient's physical therapy, please feel free to call me at [phone]. Thank you for the referral of this patient. Sincerely, Falguni Palma, PT, Cert MDT Balance/Gait/Functional tests - Balance/Special Test Scores Oswestry Neck Score: 1
== END 2021-12-31 14:02 | disposition home or self-care (01) ==
LOC: PT 12:30
PROVIDERS: PCP Internal Medicine; Referring Provider Nurse Practitioner Family; Visit Provider Nurse Practitioner Family
DX: M54.2 Cervicalgia (principal)
CPT/HCPCS: 97110; 97162; 97530

== ENCOUNTER → 2022-01-22 | Outpatient (CLI) | payer MEDICAID, SELFPAY ==
[2022-01-22 15:27] LABS: Absolute Lymphocyte Count 1.96 X10^3/uL (0.83-4.51); Basophil# 0.07 X10^3/uL; Basophil% 1.2 % (0-1); Eosinophil# 0.15 X10^3/uL; Eosinophils% 2.7 % (0-5); Hematocrit 40.8 % (37-47); Hemoglobin 12.4 g/dL (12.0-15.0); Lymphocyte # 1.96 X10^3/ul (0.83-4.51); Lymphocyte % 34.7 % (19-41); Mean Corp Hgb Conc 30.4 g/dL (32-36); Mean Corpuscular Hgb 26.6 pg (27.0-32.0); Mean Corpuscular Volume 87.6 fL (81-99); Mean Platelet Vol. 11.4 fl (6.2-12.0); Monocyte# 0.49 X10^3/uL; Monocyte% 8.7 % (0-10); NRBC Flagged by Analyzer 0 % (0-5); Neutrophil # 2.97 X10^3/uL (2.7-7.7); Neutrophil % 52.5 % (47-70); Platelet Count 187 K/mm3 (150-450); RBC Distribution Width CV 14.5 % (11.6-14.6); RBC Distribution Width SD 46.3 fl (35.1-43.9); Red Blood Count 4.66 M/mm3 (4.2-5.4); White Blood Count 5.7 K/mm3 (4.4-11.0)
[2022-01-22 15:49] LABS: AST(SGOT) 21 U/L (15-37); Alanine Aminotransfer ALT/SGPT 23 U/L (13-56); Albumin, Serum 3.3 g/dL (3.2-5.0); Alkaline Phosphatase 51 U/L (45-117); Anion Gap 2 (5-15); BUN 25 mg/dL (7-18); BUN/Creat Ratio 18.4 RATIO (10-20); Calcium,Total 9.5 mg/dL (8.5-10.1); Chloride 105 mmol/L (98-107); Creatinine, Serum 1.36 mg/dL (0.55-1.02); EST Glomerular Filtration Rate 42 mL/min (>60); Est Glom Filt Rate - Afr Amer 51 mL/min (>60); Globulin 3.2 g/dL (2.2-4.2); Glucose 90 mg/dL (74-106); Potassium 4.8 mmol/L (3.5-5.1); Protein, Total 6.5 g/dL (6.4-8.2); Sodium Level 139 mmol/L (136-145)
== END | disposition home or self-care (01) ==
LOC: BIMLAB 11:31
PROVIDERS: PCP Internal Medicine; Referring Provider Internal Medicine; Visit Provider Internal Medicine
DX: I10 Essential (primary) hypertension (principal)
CPT/HCPCS: 36415; 80053; 85025

== ENCOUNTER 2022-02-22 17:46 | Inpatient (IN) | payer MEDICAID, SELFPAY ==
[2022-02-22] VITALS (10 sets, daily range): BP systolic 105–141; BP diastolic 74–82; PULSE 59–72; RESP 16–24; TEMP 36.8–37; O2SAT 90–99; BMI 34.5; BMI 34.0
--- NOTE | 2022-02-22 18:07 | EDS_ITS ---
HPI <MELVINA Witt - Last Filed: 02/22/22 19:16> History of Present Illness Chief Complaint: Seizure Narrative Narrative: 61-year-old female with PMH of HTN, COPD, seizure disorder presents after a seizure. She lives alone in an apartment building. She remembers waking up this morning and then does not clearly recall the events but thinks she had a seizure because she woke up confused and had urinated. At some point this afternoon she walked out and asked a neighbor to call EMS. She is on Keppra 500 twice daily but cannot remember if she took the dose this morning. She follows with neurology in [place] and states she has had seizures for about 7 months. She has had scans of her head with no clear etiology found. Her last seizure was 3 months ago. She reports no recent fever or illness. PFSH <MELVINA Witt - Last Filed: 02/22/22 19:16> [facility] Medical History (Updated 02/22/22 @ 19:16 by MELVINA Witt) Acute conjunctivitis of both eyes Acute conjunctivitis, right eye Arthritis Asthma Breast cancer screening Bruising Chronic kidney disease Chronic pain Colon cancer screening COPD (chronic obstructive pulmonary disease) Depression Depression Dietary restriction Edema of eyelid of both eyes Epilepsy Flu vaccine need GI bleed High cholesterol History of edema History of pain when walking History of ulceration Hypertension Leg cramps Lower extremity edema Neuropathy right ankle surgery Seasonal allergies Seizures Shortness of breath Smoker Sprain of cervical neck Stasis dermatitis Tobacco abuse Venous insufficiency of both lower extremities Vitamin D deficiency Walker as ambulation aid Wears glasses Wears partial dentures Home Medications buprenorphine 15 mcg/hour weekly transdermal patch 15 mcg topical QWEEK PAIN 05/23/20 [History Last Taken 02/24/21] Handicap Placard #1 ea 08/13/20 [Rx Last Taken 02/24/21] pregabalin 75 mg capsule 75 mg PO TID 10/05/20 [History Last Taken 02/24/21] walker #1 ea 10/05/20 [Rx Last Taken 02/24/21] comp.stocking,thigh,long,x-lrg #4 ea 01/29/21 [Rx Last Taken 02/24/21] albuterol sulfate 90 mcg/actuation aerosol inhaler 2 puff inhalation Q6H PRN shortness of breath or wheezing #8.5 grams 04/11/21 [Rx Last Taken Unknown] aripiprazole 5 mg tablet 5 mg PO BID DEPRESSION #180 tabs 04/11/21 [Rx Last Taken Unknown] baclofen 20 mg tablet 10 mg PO TID PRN Spasms #30 tabs 04/11/21 [Rx Last Taken Unknown] escitalopram oxalate 20 mg tablet 20 mg PO DAILY DEPRESSION #90 tabs 04/11/21 [Rx Last Taken Unknown] fenofibrate nanocrystallized 48 mg tablet 48 mg PO DAILY CHOLESTEROL #90 tabs 04/11/21 [Rx Last Taken Unknown] omeprazole 40 mg capsule,delayed release 40 mg PO DAILY GERD #90 caps 04/11/21 [Rx Last Taken Unknown] cetirizine 10 mg tablet (Zyrtec) 10 mg PO DAILY PRN Congestion 08/14/21 [History Last Taken Unknown] fluticasone propionate 50 mcg/actuation nasal spray,suspension (Flonase Allergy Relief) 2 spray intranasal DAILY PRN allergy symptoms #15.8 mL 09/03/21 [Rx Last Taken Unknown] lisinopril 20 mg-hydrochlorothiazide 25 mg tablet 1 tab PO DAILY BP #90 tabs 11/01/21 [Rx Last Taken Unknown] mirtazapine 15 mg disintegrating tablet 15 mg PO QHS DEPRESSION #90 tabs 11/25/21 [Rx Last Taken Unknown] levetiracetam 750 mg tablet 750 mg PO BID #180 tabs 11/26/21 [Rx Last Taken Unknown] buspirone 5 mg tablet 5 mg PO TID DEPRESSION #270 tabs 02/17/22 [Rx Last Taken Unknown] Allergy/AdvReac Type Severity Reaction Status Date / Time aspirin AdvReac Severe Upset Verified 01/22/22 10:59 Stomach Penicillins AdvReac Severe vomiting Verified 01/22/22 10:59 Family History Mother Breast cancer Hypertension Hyperlipemia Cancer melanoma, lyphoma ulcers Father Diabetes Myocardial infarction, Onset Age: 67 Hypertension Depression Sister Depression Hyperlipemia Surgical History H/O: hysterectomy History of ankle surgery History of back surgery Social History household members: friend(s) Smoking Status: Current every day smoker tobacco type: cigarettes Tobacco: How many years used: 25 second hand exposure: No alcohol intake: never substance use type: does not use what type of physical activity do you participate in: walking frequency: 3-4 times per week dari/shinto: Sabianist seatbelt use: sometimes ROS <MELVINA Witt - Last Filed: 02/22/22 19:16> ROS ED ROS Narrative Constitutional: Negative for fever, chills, malaise. Eyes: Negative for visual change. ENT: Negative for sore throat, ear pain, rhinorrhea. CVS: Negative for palpitations, chest pain, syncope. Respiratory: Negative for shortness of breath, cough, orthopnea. GI: Negative for abdominal pain, nausea, vomiting, diarrhea, constipation, melena, hematochezia. : Negative for dysuria, hematuria or frequency. Neuro: Negative for headache, motor/sensory dysfunction. Skin: Negative for rash, abscess, or wound. Musc: Negative for joint pain, swelling, trauma. Heme: Negative for easy bruising, bleeding, lymphadenopathy. EXAM <MELVINA Witt - Last Filed: 02/22/22 19:16> Physical Exam Narrative Exam Narrative: CONST: Patient sitting in no acute distress. EYES: Normal inspection. PERRLA, EOMI. ENT: Normal inspection with no tongue bite, moist mucous membranes. NECK: Normal inspection. RESP: No respiratory distress, faint expiratory wheezing. CVS: Regular rate and rhythm, no murmur, no gallop. ABD: Soft and nontender, no guarding or rebound. SKIN: Color normal, no rash, warm, dry, intact. EXTREMITIES: Normal appearance, no pedal edema. NEURO: Oriented x4. Face symmetric, no upper or lower extremity drift, normal fi nger to nose bilaterally. PSYCH: Normal affect. Const Vital Signs: 02/22/22 17:47 02/22/22 17:52 02/22/22 18:14 Temperature 98.3 F 98.3 F Temperature Source Oral Oral Pulse Rate 71 69 70 Respiratory Rate 18 18 18 Respiratory Effort Respiratory Depth Respiratory Pattern Normal Blood Pressure 141/74 H 141/74 H Blood Pressure Mean 96 96 Pulse Ox 90 93 Oxygen Delivery Method Room Air Room Air Oxygen Flow Rate (L/min) 02/22/22 18:14 Temperature Temperature Source Pulse Rate Respiratory Rate 24 H Respiratory Effort Short of Breath Labored Respiratory Depth Shallow Respiratory Pattern Tachypnea Blood Pressure Blood Pressure Mean Pulse Ox 94 Oxygen Delivery Method Nasal Cannula Oxygen Flow Rate (L/min) 2 <Dr. Natali Dietrich MD - Last Filed: 02/22/22 20:06> Physical Exam Const Vital Signs: 02/22/22 17:47 02/22/22 17:52 02/22/22 18:14 Temperature 98.3 F 98.3 F Temperature Source Oral Oral Pulse Rate 71 69 70 Respiratory Rate 18 18 18 Respiratory Effort Respiratory Depth Respiratory Pattern Normal Blood Pressure 141/74 H 141/74 H Blood Pressure Mean 96 96 Pulse Ox 90 93 Oxygen Delivery Method Room Air Room Air Oxygen Flow Rate (L/min) 02/22/22 18:14 Temperature Temperature Source Pulse Rate Respiratory Rate 24 H Respiratory Effort Short of Breath Labored Respiratory Depth Shallow Respiratory Pattern Tachypnea Blood Pressure Blood Pressure Mean Pulse Ox 94 Oxygen Delivery Method Nasal Cannula Oxygen Flow Rate (L/min) 2 MDM <MELVINA Witt - Last Filed: 02/22/22 19:16> [facility] MDM Narrative Medical decision making narrative: Patient with history of seizure disorder presents after a seizure with unknown downtime at her apartment. She appears well and nontoxic. Vital signs within normal limits. On examination awake and alert, GCS 15, normal neurological exam. There are no injuries noted. Due to unknown downtime labs and CPK will be obtained. CBC is WNL, BMP shows slightly elevated creatinine at 1.73. CPK is normal. Patient was given a dose of Keppra and albuterol treatment for her COPD as she had missed it today and had a slight wheeze. Apparently during albuterol treatment she dropped to 88% and was placed on 2L. She was weaned back to room air but dropped as low as 83% and placed back on 2 L. She does have COPD but denies history of ALPHONSE. CXR will be obtained and case discussed with the hospitalist. Lab Data Attestation: I reviewed the patient's lab results. Labs: Laboratory Results - last 24 hr 02/22/22 02/22/22 02/22/22 18:25 18:25 19:35 WBC 7.9 RBC 4.82 Hgb 12.6 Hct 41.6 MCV 86.3 MCH 26.1 L MCHC 30.3 L RDW Std Deviation 44.9 H RDW Coeff of [place] 14.3 Plt Count 219 MPV 10.7 Immature Gran % (Auto) 0.300 Neut % (Auto) 63.0 Lymph % (Auto) 27.4 [place] % (Auto) 6.9 Eos % (Auto) 1.5 Baso % (Auto) 0.9 Absolute Neuts (auto) 5.0 Absolute Lymphs (auto) 2.15 Nucleated RBC % 0 Sodium 140 Potassium 4.1 Chloride 106 Carbon Dioxide 31.0 Anion Gap 3 L BUN 45 H Creatinine 1.73 H Estim Creat Clear Calc 31.97 Est GFR (MDRD) Af Amer 38 L Est GFR (MDRD) Non-Af 32 L BUN/Creatinine Ratio 26.0 H Glucose 95 Calcium 9.1 Total Creatine Kinase 69 Urine Color Yellow Urine Clarity Clear Urine pH 5.0 Ur Specific [place] 1.025 Urine Protein 15 H Urine Glucose (UA) Normal Urine Ketones Negative Urine Occult Blood Negative Urine Nitrite Negative Urine Bilirubin Negative Urine Urobilinogen 1 H Ur Leukocyte Esterase 100 H Urine RBC 0 SEEN Urine WBC 0-5 SEEN Ur Squamous Epith Cells 0-5 SEEN Urine Bacteria 0 SEEN Urine Mucus 0 SEEN Radiography Diagnostic Testing: Clinical Impression(s) from Imaging Studies Chest X-Ray 02/22/22 19:25 IMPRESSION: Poor inspiration with some bibasilar atelectasis. Electronically Signed: Darrel Shipley MD at 19:39 EDT Reading Location ID and State: [address] [place] [address] Tel , Service support , <Dr. Natali Dietrich MD - Last Filed: 02/22/22 20:06> [facility] Lab Data Labs: Laboratory Results - last 24 hr 02/22/22 02/22/22 02/22/22 18:25 18:25 19:35 WBC 7.9 RBC 4.82 Hgb 12.6 Hct 41.6 MCV 86.3 MCH 26.1 L MCHC 30.3 L RDW Std Deviation 44.9 H RDW Coeff of [place] 14.3 Plt Count 219 MPV 10.7 Immature Gran % (Auto) 0.300 Neut % (Auto) 63.0 Lymph % (Auto) 27.4 [place] % (Auto) 6.9 Eos % (Auto) 1.5 Baso % (Auto) 0.9 Absolute Neuts (auto) 5.0 Absolute Lymphs (auto) 2.15 Nucleated RBC % 0 Sodium 140 Potassium 4.1 Chloride 106 Carbon Dioxide 31.0 Anion Gap 3 L BUN 45 H Creatinine 1.73 H Estim Creat Clear Calc 31.97 Est GFR (MDRD) Af Amer 38 L Est GFR (MDRD) Non-Af 32 L BUN/Creatinine Ratio 26.0 H Glucose 95 Calcium 9.1 Total Creatine Kinase 69 Urine Color Yellow Urine Clarity Clear Urine pH 5.0 Ur Specific [place] 1.025 Urine Protein 15 H Urine Glucose (UA) Normal Urine Ketones Negative Urine Occult Blood Negative Urine Nitrite Negative Urine Bilirubin Negative Urine Urobilinogen 1 H Ur Leukocyte Esterase 100 H Urine RBC 0 SEEN Urine WBC 0-5 SEEN Ur Squamous Epith Cells 0-5 SEEN Urine Bacteria 0 SEEN Urine Mucus 0 SEEN Radiography Chest X-Ray - ED: 1 View, Read by ED Physician, Chronic Changes and - (Poor inspiration.) Diagnostic Testing: Clinical Impression(s) from Imaging Studies Chest X-Ray 02/22/22 19:25 IMPRESSION: Poor inspiration with some bibasilar atelectasis. Electronically Signed: Darrel Shipley MD at 19:39 EDT , Treatment and Re-Evaluation Narrative: Patient seen and evaluated with NELLIE. I personally interviewed and examined the patient. I was involved in all aspects of patient's orders, interpretation of results, and treatment. Patient presents after presumed seizure at home. She is a history of seizure disorder and her last seizure was 3 months ago. Patient states remembers waking up this morning and the next remembers waking up on the floor this afternoon. She was brought in by EMS. Patient sleeping at the time of my exam but easily awakens. Head and neck examination shows no external sign of trauma. Heart is regular rate and rhythm. Lung sounds are with slight wheezes. She has congested lung sounds in the bases. Abdomen is soft and nontender. Neuro exam reveals no focal deficit. Lab work reveals a mild renal insufficiency from baseline. Total CK is normal. Patient did require oxygen while in the emergency room and even after weaning back to room air did require being placed back on oxygen due to her O2 sats dropping into the mid 80s while she slept. She denies any known history of sleep apnea. She does not have oxygen at home. Urinalysis reveals no sign of infection. Chest x-ray per my interpretation reveals poor inspiration but no obvious focal infiltrate. Patient be discussed with hospitalist for admission. Discharge Plan Triage Chief Complaint: Seizure ED Midlevel Provider: Deborah Easley ED Provider: Natali Dietrich Dx/Rx/DC Orders Clinical Impression: Breakthrough seizure, History of COPD, Hypoxia, Acute kidney injury Instructions: ED Seizure, Recurrent (Adult) Prescriptions: No Action pregabalin 75 mg capsule 75 mg PO TID Label Comments: take 1 capsule by mouth three times a day (DME) comp.[facility]th[facility] See [facility] Instructions .ROUTE .MEDSUPPLY Qty: 4 2RF Rx Instructions: As directed fluticasone propionate [Flonase Allergy Relief] 50 mcg/actuation spray,suspension 2 spray INTRANASAL DAILY PRN (Reason: allergy symptoms) Qty: 15.8 1RF Rx Instructions: administer into each nostril levetiracetam 750 mg tablet 750 mg PO BID Qty: 180 1RF buprenorphine 1 EACH patch weekly 15 mcg TOPICAL QWEEK MDD thurs cetirizine [Zyrtec] 10 mg tablet 10 mg PO DAILY PRN (Reason: Congestion) (DME) Handicap Placard See Rx Instructions .ROUTE .MEDSUPPLY Qty: 1 0RF Rx Instructions: As directed, length of time 3 years (DME) [facility] [place] Rx Instructions .ROUTE .MEDSUPPLY Qty: 1 0RF Rx Instructions: rollator with wheels and a seat albuterol sulfate 90 mcg/actuation HFA aerosol inhaler 2 puff inhalation Q6H PRN (Reason: shortness of breath or wheezing) Qty: 8.5 2RF aripiprazole 5 mg tablet 5 mg PO BID Qty: 180 3RF baclofen 20 mg tablet 10 mg PO TID PRN (Reason: Spasms) Qty: 30 1RF escitalopram oxalate 20 mg tablet 20 mg PO DAILY Qty: 90 3RF fenofibrate nanocrystallized 48 mg tablet 48 mg PO DAILY Qty: 90 3RF omeprazole 40 mg capsule,delayed release(DR/EC) 40 mg PO DAILY Qty: 90 3RF lisinopril-hydrochlorothiazide 20-25 mg tablet 1 tab PO DAILY Qty: 90 1RF mirtazapine 15 mg tablet,disintegrating 15 mg PO QHS Qty: 90 1RF buspirone 5 mg tablet 5 mg PO TID Qty: 270 1RF Primary Care Provider: Nick Lindsey Referrals: Nick Lindsey MD [Primary Care Provider] - Activity Restrictions/Additional Instructions: You had a breakthrough seizure. Keep taking your Keppra as prescribed and follow up with your doctor. Disposition Disposition: Home, Self Care
[2022-02-22] MEDS: Albuterol 2.5 MG/3 ML VIAL.NEB. INHALATION (18:14)
[2022-02-22] MEDS: 0.9% Normal Saline 1,000 ML 999 ML IV (18:23)
[2022-02-22 18:32] LABS: Absolute Lymphocyte Count 2.15 X10^3/uL (0.83-4.51); Basophil# 0.07 X10^3/uL; Basophil% 0.9 % (0-1); Eosinophil# 0.12 X10^3/uL; Eosinophils% 1.5 % (0-5); Hematocrit 41.6 % (37-47); Hemoglobin 12.6 g/dL (12.0-15.0); Lymphocyte # 2.15 X10^3/ul (0.83-4.51); Lymphocyte % 27.4 % (19-41); Mean Corp Hgb Conc 30.3 g/dL (32-36); Mean Corpuscular Hgb 26.1 pg (27.0-32.0); Mean Corpuscular Volume 86.3 fL (81-99); Mean Platelet Vol. 10.7 fl (6.2-12.0); Monocyte# 0.54 X10^3/uL; Monocyte% 6.9 % (0-10); NRBC Flagged by Analyzer 0 % (0-5); Neutrophil # 4.95 X10^3/uL (2.7-7.7); Platelet Count 219 K/mm3 (150-450); RBC Distribution Width CV 14.3 % (11.6-14.6); RBC Distribution Width SD 44.9 fl (35.1-43.9); Red Blood Count 4.82 M/mm3 (4.2-5.4); White Blood Count 7.9 K/mm3 (4.4-11.0)
[2022-02-22 18:49] LABS: Anion Gap 3 (5-15); BUN 45 mg/dL (7-18); CPK Total, Creatine Kinase 69 U/L (26-192); Calcium,Total 9.1 mg/dL (8.5-10.1); Chloride 106 mmol/L (98-107); Creatinine, Serum 1.73 mg/dL (0.55-1.02); EST Glomerular Filtration Rate 32 mL/min (>60); Est Glom Filt Rate - Afr Amer 38 mL/min (>60); Estimated Creatinine Clearance 31.97 ml/min; Glucose 95 mg/dL (74-106); Potassium 4.1 mmol/L (3.5-5.1); Sodium Level 140 mmol/L (136-145)
--- NOTE | 2022-02-22 19:25 | RAD_ITS ---
STUDY: X-RAY CHEST REASON FOR EXAM: Female, 61 years old. dyspnea TECHNIQUE: Single AP portable view of the chest. COMPARISON: 12/02/2020 FINDINGS: The patient is rotated to the right. Poor inspiration with some bibasilar atelectasis. There is no demonstrated pleural abnormality. There is moderate cardiac enlargement. Normal mediastinum and shyla. Normal visualized pulmonary arteries. Normal visualized aortic arch and descending thoracic aorta. Normal visualized thoracic spine. Normal visualized ribs, clavicles, and shoulders. There is no demonstrated abnormality of the visualized soft tissue structures of the upper abdomen. RAD/Chest 1 View (Portable) IMPRESSION: Poor inspiration with some bibasilar atelectasis. Electronically Signed: Darrel Shipley MD at 19:39 EDT ,
[2022-02-22 19:47] LABS: Bacteria 0 SEEN /hpf (None Seen); Mucous, Urine 0 SEEN /hpf (<or=2+); Red Blood Cells-Urine 0 SEEN /hpf (0-5)
[2022-02-22 19:49] LABS: Color, Urine Yellow (Yellow); Glucose, Dipstick Normal (Normal); Ketone-Dipstick Negative (Negative); Leukocyte Esterase-Dipstick 100 /ul (Negative); Nitrite-Dipstick Negative (Negative); Occult Blood-Urine Negative /ul (Negative); Protein-Dipstick 15 mg/dl (Negative); Specific Gravity, Urine 1.025 (1.002-1.030); Urine Bilirubin Dipstick Negative (Negative); Urine Clarity Clear (Clear); Urine Urobilinogen 1 mg/dl (Normal)
[2022-02-22 20:04] LABS: Squamous Epithelial Cells - UA 0-5 SEEN /hpf (5-10); White Blood Cells 0-5 SEEN /hpf (0-5)
--- NOTE | 2022-02-22 20:24 | PCM.HP.STD ---
[facility] - General General Date of Admission: 02/22/22 Date of Service: 02/22/22 Chief Complaint: Hypoxic before discharge from ED. Had seizure episode last night. 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 Barillas on Keppra 750 mg p.o. twice daily and pregabalin 75 mg 3 times daily came to ER after an apparent seizure. There is no witnessed at home as she lives by herself. She does not remember well and her history is very fragmented and patchy. When I entered patient's room, she was drowsy and lethargic but woke up to give history. This finding was corroborated by the ER physician, Dr. Dietrich. She has history of seizure/epilepsy since age of 50. Current seizure frequency is about once every 6 months, last seizure episode was in August 2021. During last time she had apparent seizure, confused, urinated. She does not remember tonic-clonic movement or type of seizure but when she woke up in the morning she found herself in the chair in bedroom. Then she called a neighbor for EMS therefore she was brought here. Her last seizure was about 7 months ago and had MRI and EEG by Dr. Barillas. She had 500 mg IV Keppra and was patient about to discharge from ED but she was found hypoxic therefore required admission. Currently she is on 2 L of oxygen pulse ox 94%. In ED, no fever no tachycardia. She denies dysuria or lower urinary tract symptoms. She has chronic cough because of history of COPD but is not on home oxygen. Denies recent sputum production or labored breathing. She also has history of bipolar disorder and is on aripiprazole, escitalopram and mirtazapine. She has 2 lumbar surgeries and follows pain management Dr. Gregory and is on buprenorphine patch. Chest x-ray done in the ED did not show acute abnormality but poor inspiratory effort with bibasilar atelectasis. She denies vomiting or aspiration. Denies dysphagia. [facility] Medical History Acute conjunctivitis of both eyes Acute conjunctivitis, right eye Arthritis Asthma Breast cancer screening Bruising Chronic kidney disease Chronic pain Colon cancer screening COPD (chronic obstructive pulmonary disease) Depression Depression Dietary restriction Edema of eyelid of both eyes Epilepsy Flu vaccine need GI bleed High cholesterol History of edema History of pain when walking History of ulceration Hypertension Leg cramps Lower extremity edema Neuropathy right ankle surgery Seasonal allergies Seizures Shortness of breath Smoker Sprain of cervical neck Stasis dermatitis Tobacco abuse Venous insufficiency of both lower extremities Vitamin D deficiency Walker as ambulation aid Wears glasses Wears partial dentures Home Medications buprenorphine 15 mcg/hour weekly transdermal patch 15 mcg topical QWEEK PAIN 05/23/20 [History Last Taken 02/24/21] Handicap Placard #1 ea 08/13/20 [Rx Last Taken 02/24/21] pregabalin 75 mg capsule 75 mg PO TID 10/05/20 [History Last Taken 02/24/21] walker #1 ea 10/05/20 [Rx Last Taken 02/24/21] comp.stocking,thigh,long,x-lrg #4 ea 01/29/21 [Rx Last Taken 02/24/21] albuterol sulfate 90 mcg/actuation aerosol inhaler 2 puff inhalation Q6H PRN shortness of breath or wheezing #8.5 grams 04/11/21 [Rx Last Taken Unknown] aripiprazole 5 mg tablet 5 mg PO BID DEPRESSION #180 tabs 04/11/21 [Rx Last Taken Unknown] baclofen 20 mg tablet 10 mg PO TID PRN Spasms #30 tabs 04/11/21 [Rx Last Taken Unknown] escitalopram oxalate 20 mg tablet 20 mg PO DAILY DEPRESSION #90 tabs 04/11/21 [Rx Last Taken Unknown] fenofibrate nanocrystallized 48 mg tablet 48 mg PO DAILY CHOLESTEROL #90 tabs 04/11/21 [Rx Last Taken Unknown] omeprazole 40 mg capsule,delayed release 40 mg PO DAILY GERD #90 caps 04/11/21 [Rx Last Taken Unknown] cetirizine 10 mg tablet (Zyrtec) 10 mg PO DAILY PRN Congestion 08/14/21 [History Last Taken Unknown] fluticasone propionate 50 mcg/actuation nasal spray,suspension (Flonase Allergy Relief) 2 spray intranasal DAILY PRN allergy symptoms #15.8 mL 09/03/21 [Rx Last Taken Unknown] lisinopril 20 mg-hydrochlorothiazide 25 mg tablet 1 tab PO DAILY BP #90 tabs 11/01/21 [Rx Last Taken Unknown] mirtazapine 15 mg disintegrating tablet 15 mg PO QHS DEPRESSION #90 tabs 11/25/21 [Rx Last Taken Unknown] levetiracetam 750 mg tablet 750 mg PO BID #180 tabs 11/26/21 [Rx Last Taken Unknown] buspirone 5 mg tablet 5 mg PO TID DEPRESSION #270 tabs 02/17/22 [Rx Last Taken Unknown] Allergy/AdvReac Type Severity Reaction Status Date / Time aspirin AdvReac Severe Upset Verified 01/22/22 10:59 Stomach Penicillins AdvReac Severe vomiting Verified 01/22/22 10:59 Family History Mother Breast cancer Hypertension Hyperlipemia Cancer melanoma, lyphoma ulcers Father Diabetes Myocardial infarction, Onset Age: 67 Hypertension Depression Sister Depression Hyperlipemia Surgical History H/O: hysterectomy History of ankle surgery History of back surgery Social History household members: friend(s) Smoking Status: Current every day smoker tobacco type: cigarettes Tobacco: How many years used: 25 second hand exposure: No alcohol intake: never substance use type: does not use what type of physical activity do you participate in: walking frequency: 3-4 times per week dari/roman catholic: Latter-Day seatbelt use: sometimes ROS ROS Narrative Complete 14 system ROS unobtainable because of drowsiness or lethargy Chronic back pain, sciatic in nature shoulders?two-point legs. On right leg it reaches all the way to ankle and left leg to knee. Patient uses wheeled walker for ambulation. Low functional activity. No home oxygen. Rest pertinent findings of ROS already mentioned in HPI. Review of Systems ROS Unobtainable: due to encephalopathy Vital Signs Vital Signs Vital Signs: 02/22/22 17:47 02/22/22 17:52 02/22/22 18:14 Temperature 98.3 F 98.3 F Temperature Source Oral Oral Pulse Rate 71 69 70 Respiratory Rate 18 18 18 Respiratory Effort Respiratory Depth Respiratory Pattern Normal Blood Pressure 141/74 H 141/74 H Blood Pressure Mean 96 96 Pulse Ox 90 93 Oxygen Delivery Method Room Air Room Air Oxygen Flow Rate (L/min) 02/22/22 18:14 02/22/22 19:40 Temperature Temperature Source Pulse Rate 72 Respiratory Rate 24 H Respiratory Effort Short of Breath Labored Respiratory Depth Shallow Respiratory Pattern Tachypnea Blood Pressure 138/82 H Blood Pressure Mean 100 Pulse Ox 94 95 Oxygen Delivery Method Nasal Cannula Nasal Cannula Oxygen Flow Rate (L/min) 2 2 Weight Weight: 214 lb 1.102 oz Body Mass Index (BMI) 34.5 Physical Exam Narrative General: Drowsy, lethargic but woke up. Oriented x2. Disoriented to time. Hard time to recollect date of . HEENT: Atraumatic, PERRLA, EOMI, Normocephalic Oral: Oral mucosa dry. No Gingival or Mucosal Lesions/ Ulcerations Neck: Supple, No JVD, Negative Carotid Bruits Lungs: Air entry diminished in bilateral lung bases. No crepitation/rhonchi Cardiovascular: Regular rate, Regular Rhythm, Normal S1, Normal S2, No murmurs Abdomen: Bowel Sounds Present, Soft, Non Tender, Non-Distended : No renal angle tenderness. No suprapubic tenderness. Extremities: No edema, Capillary Refill Less than 3 Seconds Skin: No rashes, No breakdown Musculoskeletal/spine: Deep surgical scar over lumbar spine. No paraspinal muscle tenderness. Mild tenderness over lumbar spine midline. Neurological: Cranial nerves II-XII grossly intact, DTR 2+/4, muscle strength 4/5 on both lower extremities. Psych/Mental Status: Flat affect. Results Lab / Micro Data Result Diagrams: 02/22/22 18:25 02/22/22 18:25 Labs: Laboratory Results - last 24 hr 02/22/22 18:25: WBC 7.9, RBC 4.82, Hgb 12.6, Hct 41.6, MCV 86.3, MCH 26.1 L, MCHC 30.3 L, RDW Std Deviation 44.9 H, RDW Coeff of [place] 14.3, Plt Count 219, MPV 10.7, Immature Gran % (Auto) 0.300, Neut % (Auto) 63.0, Lymph % (Auto) 27.4, [place] % (Auto) 6.9, Eos % (Auto) 1.5, Baso % (Auto) 0.9, Absolute Neuts (auto) 5.0, Absolute Lymphs (auto) 2.15, Nucleated RBC % 0 02/22/22 18:25: Sodium 140, Potassium 4.1, Chloride 106, Carbon Dioxide 31.0, Anion Gap 3 L, BUN 45 H, Creatinine 1.73 H, Estim Creat Clear Calc 31.97, Est GFR (MDRD) Af Amer 38 L, Est GFR (MDRD) Non-Af 32 L, BUN/Creatinine Ratio 26.0 H, Glucose 95, Calcium 9.1, Total Creatine Kinase 69 02/22/22 19:35: Urine Color Yellow, Urine Clarity Clear, Urine pH 5.0, Ur Specific [place] 1.025, Urine Protein 15 H, Urine Glucose (UA) Normal, Urine Ketones Negative, Urine Occult Blood Negative, Urine Nitrite Negative, Urine Bilirubin Negative, Urine Urobilinogen 1 H, Ur Leukocyte Esterase 100 H, Urine RBC 0 SEEN, Urine WBC 0-5 SEEN, Ur Squamous Epith Cells 0-5 SEEN, Urine Bacteria 0 SEEN, Urine Mucus 0 SEEN Radiology Impression Chest X-Ray 02/22/22 19:25 IMPRESSION: Poor inspiration with some bibasilar atelectasis. Electronically Signed: Darrel Shipley MD at 19:39 EDT , Assessment & Plan Assessment/Plan (1) Seizure disorder: (2) Hypoxia: PLAN: Plan This 61-year-old female is being admitted mainly for hypoxia. 1. COPD with hypoxia, with history of nocturnal hypoxia on sleep study exact etiology unclear: Patient is not having signs and symptoms of COPD exacerbation. No fever. SARS-CoV-2 rapid antigen negative chest x-ray shows bibasilar atelectasis with a decreased respiratory effort. Incentive spirometry, DuoNeb scheduled every 4 hourly. No fever. No clinical features or suspicion of pneumonia. Polysomnogram in January 2018 reported minimal ALPHONSE, nocturnal hypoxia identified. Evidence of sleep deprivation manifested by very short sleep latency. Walking pulse oximetry before discharge. Her last admission was in November 2020 for COPD exacerbation and encephalopathy 2. Breakthrough seizure probably due to missed dose, nonadherent with acute encephalopathy probably due to seizure: Patient has history of chronic generalized tonic seizure and partial complex seizure follows Dr. Barillas. Last MRI 12/12/2021 shows mild cerebellar ectopia, no intra or extra-axial hemorrhage. No evidence of acute infarct. Cervical spine CT shows mild degenerative changes. UA is negative, WBC 0-5 cells, RBC 0, LE 100 and nitrite negative. The patient had last office visit to Dr. Barillas on November 26, 2021. Last EEG was read abnormal with mild to moderate generalized background slowing and intermittent generalized sharp waves with epileptogenic potential. Patient had 100 mg IV in ED. Ordered 750 mg IV Keppra and then continue Keppra 750 mg twice daily and pregabalin 75 mg 3 times daily. Serum magnesium and phosphorus level normal follow-up Dr. Barillas after discharge within 2 weeks. 3. ABRAM on CKD stage IIIa: Previous BUN/creatinine 25/1.36 on January 22, 2022. Current 45/1.73 probably prerenal from hypovolemia. IV fluid normal saline 100 mill per hour. Electrolytes are in normal range. Monitor kidney function and electrolytes. Hold lisinopril and HCTZ. 4. Hypertension: BP is normal. If BP goes high, will need alternative agent other than diuretic, MARGARITA and ARB. 5.. Chronic back pain with chronic lumbar radiculopathy with sciatica: Patient follows Dr. Gregory. On buprenorphine patch. 6. Anxiety depression bipolar disorder: Continue escitalopram, BuSpar, aripiprazole and mirtazapine 7. Other comorbidities include dyslipidemia, GERD, obesity: BMI 34.0 kg per metered square, obesity grade 2. Environmental Protection Geologist consult. Weight loss and lifestyle changes encouraged. On PPI. VT prophylaxis: On heparin 500 subcutaneous twice daily. Discontinue if platelet count drops less than 50,000 or hemoglobin less than 8 g% Living will/advanced directive/end of life care: Patient does not have living will or advanced directive. She does not have a designated power of commercial attorney for health. Her sister is next to kin. After discussion of benefits/risks procedures involved with full code, DNR CC arrest and DNR CC, the patient opted for full code. Patient does want artificial life support including intubation, tube feed, ventilator and/chest compression, central venous catheter, vasopressor and DC shock if needed Total time spent in [id number] encounter in discussion of advanced directive 16 minutes. Microbiology Past 72 Hours 02/22/22 20:50 Nasal Secretion SARS-CoV-2 Antigen (Rapid) - Final Laboratory Results 02/22/22 18:25: WBC 7.9, RBC 4.82, Hgb 12.6, Hct 41.6, MCV 86.3, MCH 26.1 L, MCHC 30.3 L, RDW Std Deviation 44.9 H, RDW Coeff of [place] 14.3, Plt Count 219, MPV 10.7, Immature Gran % (Auto) 0.300, Neut % (Auto) 63.0, Lymph % (Auto) 27.4, [place] % (Auto) 6.9, Eos % (Auto) 1.5, Baso % (Auto) 0.9, Absolute Neuts (auto) 5.0, Absolute Lymphs (auto) 2.15, Nucleated RBC % 0 02/22/22 18:25: Sodium 140, Potassium 4.1, Chloride 106, Carbon Dioxide 31.0, Anion Gap 3 L, BUN 45 H, Creatinine 1.73 H, Estim Creat Clear Calc 31.97, Est GFR (MDRD) Af Amer 38 L, Est GFR (MDRD) Non-Af 32 L, BUN/Creatinine Ratio 26.0 H, Glucose 95, Calcium 9.1, Total Creatine Kinase 69 02/22/22 18:25: Magnesium 2.2, Total Bilirubin 0.30, Direct Bilirubin 0.11, AST 17, ALT 20, Alkaline Phosphatase 58, Total Protein 6.7, Albumin 3.3, Globulin 3.4 02/22/22 18:25: Phosphorus 3.5 02/22/22 19:35: Urine Color Yellow, Urine Clarity Clear, Urine pH 5.0, Ur Specific [place] 1.025, Urine Protein 15 H, Urine Glucose (UA) Normal, Urine Ketones Negative, Urine Occult Blood Negative, Urine Nitrite Negative, Urine Bilirubin Negative, Urine Urobilinogen 1 H, Ur Leukocyte Esterase 100 H, Urine RBC 0 SEEN, Urine WBC 0-5 SEEN, Ur Squamous Epith Cells 0-5 SEEN, Urine Bacteria 0 SEEN, Urine Mucus 0 SEEN Charges/Coding Visit Charges OBSV E&M: 29111 Initial observation care L3 Procedures Hospitalists Procedures: 46078 Advncd Care Plan 30 Min
[2022-02-22 20:50] LABS: AST(SGOT) 17 U/L (15-37); Alanine Aminotransfer ALT/SGPT 20 U/L (13-56); Albumin, Serum 3.3 g/dL (3.2-5.0); Alkaline Phosphatase 58 U/L (45-117); Bilirubin, Direct 0.11 mg/dL (0.00-0.30); Globulin 3.4 g/dL (2.2-4.2); Magnesium 2.2 mg/dL (1.6-2.6); Protein, Total 6.7 g/dL (6.4-8.2)
[2022-02-22 21:22] LABS: Phosphorus 3.5 mg/dL (2.5-4.9)
[2022-02-22] MEDS: 0.9% Normal Saline 1,000 ML 100 ML IV (22:24)
[2022-02-22] MEDS: Heparin Injection (Vial) 5,000 UNIT/ML VIAL 5000 UNIT SC (22:35)
[2022-02-22] MEDS: busPIRone 5 MG Tablet PO (22:36)
[2022-02-22] MEDS: ARIPiprazole 5 MG Tablet PO (22:36)
[2022-02-22] MEDS: Mirtazapine 15 MG Tablet PO (22:37)
[2022-02-22] MEDS: 0.9% Saline Lock 10 ML Syringe IV (22:38)
[2022-02-22] MEDS: Pregabalin 75 MG Capsule PO (22:51)
[2022-02-22] MEDS: Ipratropium/Albuterol Sulfate 3 ML AMPUL.NEB INHALATION (22:57)
[2022-02-23] VITALS (15 sets, daily range): BP systolic 102–131; BP diastolic 52–74; PULSE 60–89; RESP 14–20; TEMP 36.6–37.4; O2SAT 92–96
[2022-02-23] MEDS: Acetaminophen 325 MG Tablet 650 MG PO ×2 (03:19→21:01)
[2022-02-23] MEDS: Ipratropium/Albuterol Sulfate 3 ML AMPUL.NEB INHALATION ×5 (03:21→23:05)
[2022-02-23 05:47] LABS: Absolute Lymphocyte Count 1.52 X10^3/uL (0.83-4.51); Absolute Neutrophil Count 3.6 X10^3/uL (2.0-7.7); Basophil# 0.06 X10^3/uL; Basophil% 1.1 % (0-1); Eosinophil# 0.05 X10^3/uL; Eosinophils% 0.9 % (0-5); Hematocrit 38.8 % (37-47); Hemoglobin 12.1 g/dL (12.0-15.0); Lymphocyte # 1.52 X10^3/ul (0.83-4.51); Lymphocyte % 27.1 % (19-41); Mean Corp Hgb Conc 31.2 g/dL (32-36); Mean Corpuscular Volume 86.6 fL (81-99); Mean Platelet Vol. 10.6 fl (6.2-12.0); Monocyte# 0.32 X10^3/uL; Monocyte% 5.7 % (0-10); NRBC Flagged by Analyzer 0 % (0-5); Neutrophil # 3.64 X10^3/uL (2.7-7.7); Platelet Count 176 K/mm3 (150-450); RBC Distribution Width CV 14.2 % (11.6-14.6); RBC Distribution Width SD 44.9 fl (35.1-43.9); Red Blood Count 4.48 M/mm3 (4.2-5.4); White Blood Count 5.6 K/mm3 (4.4-11.0)
[2022-02-23 06:15] LABS: Anion Gap 4 (5-15); BUN 34 mg/dL (7-18); Calcium,Total 8.3 mg/dL (8.5-10.1); Chloride 111 mmol/L (98-107); Creatinine, Serum 1.03 mg/dL (0.55-1.02); EST Glomerular Filtration Rate 58 mL/min (>60); Est Glom Filt Rate - Afr Amer 70 mL/min (>60); Estimated Creatinine Clearance 53.69 ml/min; Glucose 108 mg/dL (74-106); Potassium 4.1 mmol/L (3.5-5.1); Sodium Level 143 mmol/L (136-145); Thyroid Stim Hormone (TSH) 0.79 uIU/mL (0.358-3.74)
[2022-02-23] MEDS: Pregabalin 75 MG Capsule PO ×3 (06:26→21:01)
[2022-02-23] MEDS: busPIRone 5 MG Tablet PO ×3 (06:26→21:00)
--- NOTE | 2022-02-23 06:42 | RAD_ITS ---
STUDY: X-RAY CHEST REASON FOR EXAM: Female, 61 years old. Hypoxia, possible aspiration with seizure TECHNIQUE: Single AP portable view of the chest. COMPARISON: February 22, 2022. December 02, 2020. FINDINGS: There is now subtle density in both lung bases. No effusions. No pneumothorax. Normal size heart. Normal mediastinum and shyla. Normal visualized pulmonary arteries. Atherosclerotic calcification of the aortic arch. Normal visualized thoracic spine. Normal visualized ribs, clavicles, and shoulders. There is no demonstrated abnormality of the visualized soft tissue structures of the upper abdomen. RAD/Chest 1 View (Portable) IMPRESSION: New bibasilar subsegmental atelectasis and/or pneumonia. Electronically Signed: Matthew Paul MD at 7:50 EDT Reading Location ID and State: [id number] / , Service support ,
[2022-02-23] MEDS: Pantoprazole Sodium 40 MG Tablet PO (09:28)
[2022-02-23] MEDS: ARIPiprazole 5 MG Tablet PO ×2 (09:28→21:00)
[2022-02-23] MEDS: Fenofibrate 48 MG Tablet PO (09:29)
[2022-02-23] MEDS: levETIRAcetam 750 MG Tablet PO ×2 (09:29→21:00)
[2022-02-23] MEDS: Escitalopram Oxalate 20 MG Tablet PO (09:29)
[2022-02-23] MEDS: Heparin Injection (Vial) 5,000 UNIT/ML VIAL 5000 UNIT SC ×2 (09:30→21:00)
--- NOTE | 2022-02-23 10:28 | PN.HOSP_ITS ---
Subjective Subjective Patient this morning he notes feeling fatigued, coughing during evaluation and currently needing 3.5 L nasal cannula. Discussed with patient importance of taking her antiepileptic medications and concerns that likely she aspirated during her seizure activity. Discussed findings on chest x-ray and plan continuation of initiated Unasyn therapy for suspected aspiration potentially pneumonitis versus developing pneumonia given unclear exact timeline of how long she is been having seizures. Patient denies fevers, chills, nausea, emesis, abdominal pain, chest pain. Objective Data Objective Data Vital Signs: Vital Signs Temp Pulse Resp BP Pulse Ox O2 Del Method O2 Flow Rate 98.2 F 89 18 117/74 96 Nasal Cannula 3 02/23/22 09:05 02/23/22 09:05 02/23/22 09:05 02/23/22 09:05 02/23/22 09:05 02/23/22 09:05 02/23/22 09:05 Oxygen Flow Rate (L/min) 3 Oxygen Delivery Method Nasal Cannula Weight: 210 lb 12.191 oz Body Mass Index (BMI) 34.0 Intake & Output: Intake and Output for Last 24 Hours 02/21/22 02/22/22 02/23/22 23:59 23:59 23:59 Intake Total 1212.5 / 1452.5 1540 / 1540 Balance 1212.5 / 1452.5 1540 / 1540 Lab / Micro Data Result Diagrams: 02/23/22 05:30 02/23/22 05:30 Labs: Laboratory Results - last 24 hr 02/22/22 18:25: WBC 7.9, RBC 4.82, Hgb 12.6, Hct 41.6, MCV 86.3, MCH 26.1 L, MCHC 30.3 L, RDW Std Deviation 44.9 H, RDW Coeff of [place]ana 14.3, Plt Count 219, MPV 10.7, Immature Gran % (Auto) 0.300, Neut % (Auto) 63.0, Lymph % (Auto) 27.4, [place] % (Auto) 6.9, Eos % (Auto) 1.5, Baso % (Auto) 0.9, Absolute Neuts (auto) 5.0, Absolute Lymphs (auto) 2.15, Nucleated RBC % 0 02/22/22 18:25: Sodium 140, Potassium 4.1, Chloride 106, Carbon Dioxide 31.0, Anion Gap 3 L, BUN 45 H, Creatinine 1.73 H, Estim Creat Clear Calc 31.97, Est GFR (MDRD) Af Amer 38 L, Est GFR (MDRD) Non-Af 32 L, BUN/Creatinine Ratio 26.0 H , Glucose 95, Calcium 9.1, Total Creatine Kinase 69 02/22/22 18:25: Magnesium 2.2, Total Bilirubin 0.30, Direct Bilirubin 0.11, AST 17, ALT 20, Alkaline Phosphatase 58, Total Protein 6.7, Albumin 3.3, Globulin 3.4 02/22/22 18:25: Phosphorus 3.5 02/22/22 19:35: Urine Color Yellow, Urine Clarity Clear, Urine pH 5.0, Ur Specific [place] 1.025, Urine Protein 15 H, Urine Glucose (UA) Normal, Urine Ketones Negative, Urine Occult Blood Negative, Urine Nitrite Negative, Urine Bilirubin Negative, Urine Urobilinogen 1 H, Ur Leukocyte Esterase 100 H, Urine RBC 0 SEEN, Urine WBC 0-5 SEEN, Ur Squamous Epith Cells 0-5 SEEN, Urine Bacteria 0 SEEN, Urine Mucus 0 SEEN 02/23/22 05:30: Sodium 143, Potassium 4.1, Chloride 111 H, Carbon Dioxide 28.0, Anion Gap 4 L, BUN 34 H, Creatinine 1.03 H, Estim Creat Clear Calc 53.69, Est GFR (MDRD) Af Amer 70, Est GFR (MDRD) Non-Af 58 L, BUN/Creatinine Ratio 33.0 H, Glucose 108 H, Calcium 8.3 L, TSH 0.79 02/23/22 05:30: WBC 5.6, RBC 4.48, Hgb 12.1, Hct 38.8, MCV 86.6, MCH 27.0, MCHC 31.2 L, RDW Std Deviation 44.9 H, RDW Coeff of [place]ana 14.2, Plt Count 176, MPV 10.6, Immature Gran % (Auto) 0.200, Neut % (Auto) 65.0, Lymph % (Auto) 27.1, [place] % (Auto) 5.7, Eos % (Auto) 0.9, Baso % (Auto) 1.1 H, Absolute Neuts (auto) 3.6, Absolute Lymphs (auto) 1.52, Nucleated RBC % 0 Micro: Microbiology 02/22/22 20:50 Nasal Secretion SARS-CoV-2 Antigen (Rapid) - Final Radiography Diagnostic Testing: Radiology Impression Chest X-Ray 02/22/22 19:25 IMPRESSION: Poor inspiration with some bibasilar atelectasis. Electronically Signed: Darrel Shipley MD at 19:39 EDT , Chest X-Ray 02/23/22 06:42 IMPRESSION: New bibasilar subsegmental atelectasis and/or pneumonia. Electronically Signed: Matthew Paul MD at 7:50 EDT , Physical Exam Narrative Physical Examination: General: Awake, alert, oriented x [address], self and some recent rachel nts, she does appear slow with responses however, following commands, seated upright in the PCU bed, fatigued. Skin: Normal color, normal turgor, no icterus, no cyanosis. HEENT: AT/NC, EOMI, PERRLA, mildly dry MM, some evident difficulty managing her upper airway secretions, improved with cough request to some degree. Lungs: Diminished, mildly coarse bases, mildly increased respiratory rate but no distress, no rales, rhonchi or wheezing, some difficulty managing her upper airway secretions Heart: Currently regular rate and rhythm; no gallop, rub audible. Abdomen: Soft, obese, NTTP, ND, distant normal BS. Extremities: No cyanosis, no clubbing, bilateral ankle not markedly pitting edema. Neurological: Patient awake, alert, oriented as noted, cognitive function decreased but unclear if this is her baseline; pupils equally reactive to light and accommodation, cranial nerves II-XII grossly normal, moving all 4 extremities, strength moderately to severely global decreased. Psychiatric: Affect appears fatigued, flat, no acute evidence of depressive or anxiety feelings. Assessment & Plan Assessment/Plan (1) Seizure disorder: PLAN: Plan The patient is a 61 y/o F w/ PMHx: Obesity, HTN, HLD, GERD w/ Hx GI bleed, CKD stage III unclear subtype, COPD/Asthma with ongoing Tobacco use, Allergic rhinitis, Anxiety and Depression, Chronic pain syndrome on chronic topical buprenorphine regimen, Seizure disorder who presents to the [facility] ED on 02/22/22 with history of generalized tonic-clonic seizure with aura and complex partial seizure following with Dr. Barillas with concern for failure to take her antiepileptic medications with breakthrough seizure activity. #1. Seizure disorder, chronic history generalized tonic-clonic seizures without aura with complex partial seizures with breakthrough seizure activity: Patient living alone, suspect likely breakthrough seizure activity as she noted finding her self on the floor, reports history of breakthrough seizure at least 6 to 7 months at a time. Discussed patient's presentation at length and difficult to ascertain but there is some suspicion that maybe she missed several medication dosings. Discussed with her strongly the importance of taking her antiepileptic medications. Given the concern is primarily she has missed her medications we will hold off on immediately repeating an MRI or EEG. Patient has been placed on IV Keppra and loaded with then transition to oral Keppra home dose. Given her concurrent #2 will remain inpatient however if clinically improves with plan transition to oral regimen. If any further concerns for recurrent seizure activity would progress to an MRI of the brain, EEG and obtain neurology consultation at that time. Urine tox requested, TSH 0.79, magnesium 2.2. UA upon presentation with no obvious infection but evidence of dehydration. #2. Acute hypoxia secondary to suspected aspiration pneumonia secondary to #1: CXR in the ED w/ with poor inspiration and some bibasilar atelectasis, given increased oxygen requirements overnight since presentation repeat chest x-ray obtained 02/24/2020 2 AM with new bibasilar segmental atelectasis and/or pneumonia. Certainly could be aspiration pneumonitis however to be cautious will start patient on IV Unasyn therapy, continue ATC duonebs, PRN albuterol, HOB, IS parameters. #3. ABRAM on Chronic Kidney Disease Stage III, unclear subtype: Likely secondary to number 1, suspect recent poor oral intake with seizure activity and insensible losses, admission BUN/Cr 45/1.73, baseline renal function primarily 0.7-1.0, patiently judiciously hydrated, repeat 02/23/2022 BUN/creat 34/1.03, improving. #4. Chronic COPD/asthma with allergic rhinitis: Will wean as tolerated to room air however currently hypoxic as noted #2, continue ATC duonebs, PRN albuterol, HOB, IS parameters, continue patient home fluticasone regimen as well as loratadine regimen. #5. Anxiety and depression: We will continue patient home Abilify, BuSpar, Lexapro, mirtazapine regimen however closely monitor for sedation especially given recent concerns for aspiration. #6. Chronic pain syndrome: Patient following with pain management, on chronic buprenorphine regimen, verifying with staff when last placed as certainly want to avoid withdrawal, last filled noted 02/17/22, could potentially be due for change 02/24/22 which was discussed with bar staff and they are investigating. We will continue patient home baclofen and Lyrica regimen cautiously with hold for sedation as needed. #7. Hyperlipidemia: We will continue patient home Tricor regimen. #8. Obesity: Weight loss and lifestyle changes encouraged. #9. GERD with history of prior GI bleed: We will continue patient home PPI. #10. DVT prophylaxis: SCDs, Lovenox. Charges/Coding Visit Charges Inpatient E&M: 79954 Subs Hosp L3
--- NOTE | 2022-02-23 15:50 | NURSING ---
Pt currently has buprenorphine patch on Left upper arm, Pt states she changes patch weekly on .
[2022-02-23 17:08] LABS: Amphetamine Urine VISTA NEGATIVE (<1000 ng/mL); Barbiturate Urine VISTA NEGATIVE (< 200 ng/mL); Benzodiazepine Urine VISTA NEGATIVE (< 200 ng/mL); Cocaine Urine VISTA NEGATIVE (< 300 ng/mL); Ecstacy Urine VISTA NEGATIVE (< 500 ng/mL); Methadone Urine VISTA NEGATIVE (< 300 ng/mL); PCP Urine VISTA NEGATIVE (< 25 ng/mL); THC Urine VISTA NEGATIVE (< 50 ng/mL); Vista UDS pH Range 5
[2022-02-23] MEDS: Mirtazapine 15 MG Tablet PO (21:01)
[2022-02-23 22:16] LABS: Bedside Glucose 130 mg/dL (74-106)
[2022-02-23] MEDS: 0.9% Saline Lock 10 ML Syringe IV (23:02)
[2022-02-24] VITALS (7 sets, daily range): BP systolic 119–152; BP diastolic 72–73; PULSE 60–71; RESP 12–20; TEMP 35.9–36.2; O2SAT 92–97
--- NOTE | 2022-02-24 00:40 | NURSING ---
pt noted with pain patch from home intact to L upper arm at this time. will monitor. pt denies needs and pain at this time.
[2022-02-24] MEDS: Ipratropium/Albuterol Sulfate 3 ML AMPUL.NEB INHALATION ×2 (03:15→07:07)
[2022-02-24] MEDS: Pregabalin 75 MG Capsule PO (04:49)
[2022-02-24] MEDS: 0.9% Saline Lock 10 ML Syringe IV (04:49)
[2022-02-24] MEDS: busPIRone 5 MG Tablet PO (04:50)
[2022-02-24] MEDS: ARIPiprazole 5 MG Tablet PO (09:35)
[2022-02-24] MEDS: levETIRAcetam 750 MG Tablet PO (09:36)
[2022-02-24] MEDS: Escitalopram Oxalate 20 MG Tablet PO (09:36)
[2022-02-24] MEDS: Fenofibrate 48 MG Tablet PO (09:37)
[2022-02-24] MEDS: Pantoprazole Sodium 40 MG Tablet PO (09:37)
[2022-02-24] MEDS: Heparin Injection (Vial) 5,000 UNIT/ML VIAL 5000 UNIT SC (09:43)
--- NOTE | 2022-02-24 10:49 | CASEMGMT ---
Pt does not qualify for home oxygen. Nissa PARISI CM
--- NOTE | 2022-02-24 11:22 | DCINST_ITS ---
Discharge Instructions Diet Discharge Diet: Low fat / Low cholesterol Activity Discharge Activity: Return to Normal Activity Dressing / Incision Call your doctor if you observe: Numbness or Tingling, Shortness of breath, Dizziness and Fainting spells Follow Up Care Test Results: Test results from this visit will be discussed in further detail at your follow- up appointment, if applicable. Discharge Plan Admission Admit Date/Time: 02/23/22 15:16 Primary Reason for Your Visit: Breakthrough Seizures, Aspiration Pneumonia Attending Provider: Carlitos Velázquez Primary Care Provider: Nick Lindsey Consulting Providers: Daniel Mireles ; Myriam Ferro Instructions Patient Instructions: ED Seizure, Recurrent (Adult) Additional Instructions / Restrictions: You had a breakthrough seizure. Keep taking your Keppra as prescribed and follow up with your doctor. It is important to take every dose of your keppra to prevent seizures. Discharge Orders/Prescriptions Prescriptions: New amoxicillin-pot clavulanate 500-125 mg tablet 1 tab PO Q8H Qty: 15 0RF Continued pregabalin 75 mg capsule 75 mg PO TID Label Comments: take 1 capsule by mouth three times a day fluticasone propionate [Flonase Allergy Relief] 50 mcg/actuation spray,suspension 2 spray INTRANASAL DAILY PRN (Reason: allergy symptoms) Qty: 15.8 1RF Rx Instructions: administer into each nostril levetiracetam 750 mg tablet 750 mg PO BID Qty: 180 1RF buprenorphine 1 EACH patch weekly 15 mcg TOPICAL QWEEK MDD thurs cetirizine [Zyrtec] 10 mg tablet 10 mg PO DAILY PRN (Reason: Congestion) albuterol sulfate 90 mcg/actuation HFA aerosol inhaler 2 puff inhalation Q6H PRN (Reason: shortness of breath or wheezing) Qty: 8.5 2RF aripiprazole 5 mg tablet 5 mg PO BID Qty: 180 3RF baclofen 20 mg tablet 10 mg PO TID PRN (Reason: Spasms) Qty: 30 1RF escitalopram oxalate 20 mg tablet 20 mg PO DAILY Qty: 90 3RF fenofibrate nanocrystallized 48 mg tablet 48 mg PO DAILY Qty: 90 3RF omeprazole 40 mg capsule,delayed release(DR/EC) 40 mg PO DAILY Qty: 90 3RF lisinopril-hydrochlorothiazide 20-25 mg tablet 1 tab PO DAILY Qty: 90 1RF mirtazapine 15 mg tablet,disintegrating 15 mg PO QHS Qty: 90 1RF buspirone 5 mg tablet 5 mg PO TID Qty: 270 1RF No Action (DME) comp.stocking,thigh,long,x-lrg Misc See Rx Instructions .ROUTE .MEDSUPPLY Qty: 4 2RF Rx Instructions: As directed (DME) Handicap Placard See Rx Instructions .ROUTE .MEDSUPPLY Qty: 1 0RF Rx Instructions: As directed, length of time 3 years (DME) walker Misc See Rx Instructions .ROUTE .MEDSUPPLY Qty: 1 0RF Rx Instructions: rollator with wheels and a seat Referrals / Follow Up: Nick Lindsey MD [Primary Care Provider] - Within 2 Weeks Disposition Disposition (needs filled in before D/C Order can be placed): Home, Self Care
--- NOTE | 2022-02-24 11:30 | CASEMGMT ---
AILIN GRAVES Face to Face with patient for initial transition planning/care coordination assessment. RN CM introduced self and role at [facility]. Patient sitting in chair, alert and oriented. Patient willing to participate in assessment and is able to answer all questions appropriately. Care providers, pharmacy, and demographics verified. Patient wishes to discharge home, denies need for home health at this time. Patient states she has no further needs or concerns at this time. CM to follow for discharge planning needs that may arise. PCP: Rosalia Specialists: [facility] neurologist; hernan Juárez Preferred Pharmacy: [facility] retail Insurance: [employer] Prescription Benefit: yes Living Will/HPOA: none LNOK: sister, friend Margarette Living Arrangements: Patient lives alone in a group home apartment on the third floor with elevator. Patient states she is independent at home. Transportation: self, Margarette DME/HHC: Patient states she has shower chair, grab bars, cane, rollator, pulse ox, and call lights. Patient states she has had [facility] in the past. Patient has previously been to [facility]. Disposition Plan: Patient to discharge home with family support and follow-up plans in place. Krysta ALY, RN, CM
--- NOTE | 2022-02-24 11:34 | PCM.DC.SUM ---
Documented by User: LACEY Ireland 02/24/22 11:38 Providers Date of Admission: 02/23/22 Date of Discharge: 02/24/22 Primary Care Physician: Dr. Nick Lindsey MD Reason For Visit: HYPOXIA, SEIZURE BREAKTHROUGH, MISSED PILL Diagnosis Discharge Diagnosis (1) Seizure disorder: Status: Chronic Code(s): G40.909 - Epilepsy, unspecified, not intractable, without status epilepticus Medications at Discharge Home Medications buprenorphine 15 mcg/hour weekly transdermal patch 15 mcg topical QWEEK PAIN 05/23/20 Handicap Placard #1 ea 08/13/20 pregabalin 75 mg capsule 75 mg PO TID 10/05/20 walker #1 ea 10/05/20 comp.stocking,thigh,long,x-lrg #4 ea 01/29/21 albuterol sulfate 90 mcg/actuation aerosol inhaler 2 puff inhalation Q6H PRN shortness of breath or wheezing #8.5 grams 04/11/21 aripiprazole 5 mg tablet 5 mg PO BID DEPRESSION #180 tabs 04/11/21 baclofen 20 mg tablet 10 mg PO TID PRN Spasms #30 tabs 04/11/21 escitalopram oxalate 20 mg tablet 20 mg PO DAILY DEPRESSION #90 tabs 04/11/21 fenofibrate nanocrystallized 48 mg tablet 48 mg PO DAILY CHOLESTEROL #90 tabs 04/11/21 omeprazole 40 mg capsule,delayed release 40 mg PO DAILY GERD #90 caps 04/11/21 cetirizine 10 mg tablet (Zyrtec) 10 mg PO DAILY PRN Congestion 08/14/21 fluticasone propionate 50 mcg/actuation nasal spray,suspension (Flonase Allergy Relief) 2 spray intranasal DAILY PRN allergy symptoms #15.8 mL 09/03/21 lisinopril 20 mg-hydrochlorothiazide 25 mg tablet 1 tab PO DAILY BP #90 tabs 11/01/21 mirtazapine 15 mg disintegrating tablet 15 mg PO QHS DEPRESSION #90 tabs 11/25/21 levetiracetam 750 mg tablet 750 mg PO BID #180 tabs 11/26/21 buspirone 5 mg tablet 5 mg PO TID DEPRESSION #270 tabs 02/17/22 amoxicillin 500 mg-potassium clavulanate 125 mg tablet 1 tab PO Q8H #15 tabs 02/24/22 Hospital Course Operations None Procedures None Summary of Care Provided Minutes Spent on Discharge: 35 Hospital Course: Patient is a 61-year-old female who initially presented with breakthrough seizures. Patient states that she woke up on the floor and believes that she had a breakthrough seizure. Patient admitted that she may have missed a few doses of her antiseizure medications. Patient was also noted to be short of breath and a chest x-ray was obtained. Patient was noted to have pneumonia suspect aspiration as she had a seizure. Patient was initiated on Unasyn and will be sent home on Augmentin p.o. patient instructed to make sure that she takes all doses of her antiseizure medications to avoid breakthrough seizures. Physical Exam Const alert, oriented x3 and no apparent distress General Appearance: cooperative HEENT normocephalic and head/scalp atraumatic Neck no lymphadenopathy and supple General: trachea midline Lymph Lymphatic: no lymphadenopathy noted Resp normal respiratory effort and normal air movement Auscultation: diminished lung sounds Cardio regular rate, regular rhythm, S1 normal heart sound and S2 normal heart sound GI normal to inspection, nondistended, normoactive bowel sounds, soft to palpation and non-tender Extremity normal capillary refill and no clubbing, cyanosis or edema Skin skin turgor normal Neuro no focal motor deficits and no sensory deficits noted Speech: speech normal Psych affect normal Weight / BMI Weight Weight: 210 lb 1.608 oz Body Mass Index (BMI) 34.0 ABG / Lab / Microbiology Data Result Diagrams: 02/23/22 05:30 02/23/22 05:30 Laboratory: Laboratory Results - last 24 hr 02/22/22 19:35: Urine Opiates Screen NEGATIVE, Urine Methadone Screen NEGATIVE, Ur Barbiturates Screen NEGATIVE, Ur Phencyclidine Scrn NEGATIVE, Ur Amphetamines Screen NEGATIVE, MDMA (Ecstasy) Screen NEGATIVE, U Benzodiazepines Scrn NEGATIVE, Urine Cocaine Screen NEGATIVE, U Cannabinoids Screen NEGATIVE, Ur Drug Screen Comment 02/23/22 20:55: POC Glucose 130 H Microbiology: Microbiology 02/22/22 20:50 Nasal Secretion SARS-CoV-2 Antigen (Rapid) - Final D/C Instructions Discharge Diet: Low fat / Low cholesterol Call your doctor if you observe: Numbness or Tingling, Shortness of breath, Dizziness and Fainting spells Meaningful Use Info Meaningful Use Diagnoses (Choose all that apply): None applicable Discharge Plan Admission Admit Date/Time: 02/23/22 15:16 Primary Reason for Your Visit: Breakthrough Seizures, Aspiration Pneumonia Attending Provider: Carlitos Velázquez Primary Care Provider: Nick Lindsey Consulting Providers: Daniel Mireles ; Myriam Ferro Instructions Additional Instructions / Restrictions: You had a breakthrough seizure. Keep taking your Keppra as prescribed and follow up with your doctor. It is important to take every dose of your keppra to prevent seizures. Discharge Orders/Prescriptions Prescriptions: New amoxicillin-pot clavulanate 500-125 mg tablet 1 tab PO Q8H Qty: 15 0RF Continued pregabalin 75 mg capsule 75 mg PO TID Label Comments: take 1 capsule by mouth three times a day fluticasone propionate [Flonase Allergy Relief] 50 mcg/actuation spray,suspension 2 spray INTRANASAL DAILY PRN (Reason: allergy symptoms) Qty: 15.8 1RF Rx Instructions: administer into each nostril levetiracetam 750 mg tablet 750 mg PO BID Qty: 180 1RF buprenorphine 1 EACH patch weekly 15 mcg TOPICAL QWEEK MDD thurs cetirizine [Zyrtec] 10 mg tablet 10 mg PO DAILY PRN (Reason: Congestion) albuterol sulfate 90 mcg/actuation HFA aerosol inhaler 2 puff inhalation Q6H PRN (Reason: shortness of breath or wheezing) Qty: 8.5 2RF aripiprazole 5 mg tablet 5 mg PO BID Qty: 180 3RF baclofen 20 mg tablet 10 mg PO TID PRN (Reason: Spasms) Qty: 30 1RF escitalopram oxalate 20 mg tablet 20 mg PO DAILY Qty: 90 3RF fenofibrate nanocrystallized 48 mg tablet 48 mg PO DAILY Qty: 90 3RF omeprazole 40 mg capsule,delayed release(DR/EC) 40 mg PO DAILY Qty: 90 3RF lisinopril-hydrochlorothiazide 20-25 mg tablet 1 tab PO DAILY Qty: 90 1RF mirtazapine 15 mg tablet,disintegrating 15 mg PO QHS Qty: 90 1RF buspirone 5 mg tablet 5 mg PO TID Qty: 270 1RF No Action (DME) comp.stocking,thigh,long,x-lrg Misc See Rx Instructions .ROUTE .MEDSUPPLY Qty: 4 2RF Rx Instructions: As directed (DME) Handicap Placard See Rx Instructions .ROUTE .MEDSUPPLY Qty: 1 0RF Rx Instructions: As directed, length of time 3 years (DME) walker [facility] See Rx Instructions .ROUTE .MEDSUPPLY Qty: 1 0RF Rx Instructions: rollator with wheels and a seat Referrals / Follow Up: Nick Lindsey MD [Primary Care Provider] - Within 2 Weeks Disposition Disposition (needs filled in before D/C Order can be placed): Home, Self Care Documented by User: Dr. Carlitos Velázquez DO 02/24/22 16:25 Providers Date of Admission: 02/23/22 Reason For Visit: HYPOXIA, SEIZURE BREAKTHROUGH, MISSED PILL Diagnosis Discharge Diagnosis (1) Seizure disorder: Status: Chronic Code(s): G40.909 - Epilepsy, unspecified, not intractable, without status epilepticus Medications at Discharge Home Medications buprenorphine 15 mcg/hour weekly transdermal patch 15 mcg topical QWEEK PAIN 05/23/20 Handicap Placard #1 ea 08/13/20 pregabalin 75 mg capsule 75 mg PO TID 10/05/20 walker #1 ea 10/05/20 comp.stocking,thigh,long,x-lrg #4 ea 01/29/21 albuterol sulfate 90 mcg/actuation aerosol inhaler 2 puff inhalation Q6H PRN shortness of breath or wheezing #8.5 grams 04/11/21 aripiprazole 5 mg tablet 5 mg PO BID DEPRESSION #180 tabs 04/11/21 baclofen 20 mg tablet 10 mg PO TID PRN Spasms #30 tabs 04/11/21 escitalopram oxalate 20 mg tablet 20 mg PO DAILY DEPRESSION #90 tabs 04/11/21 fenofibrate nanocrystallized 48 mg tablet 48 mg PO DAILY CHOLESTEROL #90 tabs 04/11/21 omeprazole 40 mg capsule,delayed release 40 mg PO DAILY GERD #90 caps 04/11/21 cetirizine 10 mg tablet (Zyrtec) 10 mg PO DAILY PRN Congestion 08/14/21 fluticasone propionate 50 mcg/actuation nasal spray,suspension (Flonase Allergy Relief) 2 spray intranasal DAILY PRN allergy symptoms #15.8 mL 09/03/21 lisinopril 20 mg-hydrochlorothiazide 25 mg tablet 1 tab PO DAILY BP #90 tabs 11/01/21 mirtazapine 15 mg disintegrating tablet 15 mg PO QHS DEPRESSION #90 tabs 11/25/21 levetiracetam 750 mg tablet 750 mg PO BID #180 tabs 11/26/21 buspirone 5 mg tablet 5 mg PO TID DEPRESSION #270 tabs 02/17/22 amoxicillin 500 mg-potassium clavulanate 125 mg tablet 1 tab PO Q8H #15 tabs 02/24/22 ABG / Lab / Microbiology Data Result Diagrams: 02/23/22 05:30 02/23/22 05:30 Discharge Plan Admission Admit Date/Time: 02/23/22 15:16 Primary Reason for Your Visit: Breakthrough Seizures, Aspiration Pneumonia Attending Provider: Carlitos Velázquez Primary Care Provider: Nick Lindsey Consulting Providers: Daniel Mireles ; Myriam Ferro Instructions Additional Instructions / Restrictions: You had a breakthrough seizure. Keep taking your Keppra as prescribed and follow up with your doctor. It is important to take every dose of your keppra to prevent seizures. Discharge Orders/Prescriptions Prescriptions: New amoxicillin-pot clavulanate 500-125 mg tablet 1 tab PO Q8H Qty: 15 0RF Continued pregabalin 75 mg capsule 75 mg PO TID Label Comments: take 1 capsule by mouth three times a day fluticasone propionate [Flonase Allergy Relief] 50 mcg/actuation spray,suspension 2 spray INTRANASAL DAILY PRN (Reason: allergy symptoms) Qty: 15.8 1RF Rx Instructions: administer into each nostril levetiracetam 750 mg tablet 750 mg PO BID Qty: 180 1RF buprenorphine 1 EACH patch weekly 15 mcg TOPICAL QWEEK MDD thurs cetirizine [Zyrtec] 10 mg tablet 10 mg PO DAILY PRN (Reason: Congestion) albuterol sulfate 90 mcg/actuation HFA aerosol inhaler 2 puff inhalation Q6H PRN (Reason: shortness of breath or wheezing) Qty: 8.5 2RF aripiprazole 5 mg tablet 5 mg PO BID Qty: 180 3RF baclofen 20 mg tablet 10 mg PO TID PRN (Reason: Spasms) Qty: 30 1RF escitalopram oxalate 20 mg tablet 20 mg PO DAILY Qty: 90 3RF fenofibrate nanocrystallized 48 mg tablet 48 mg PO DAILY Qty: 90 3RF omeprazole 40 mg capsule,delayed release(DR/EC) 40 mg PO DAILY Qty: 90 3RF lisinopril-hydrochlorothiazide 20-25 mg tablet 1 tab PO DAILY Qty: 90 1RF mirtazapine 15 mg tablet,disintegrating 15 mg PO QHS Qty: 90 1RF buspirone 5 mg tablet 5 mg PO TID Qty: 270 1RF No Action (DME) comp.stocking,thigh,long,x-lrg Misc See Rx Instructions .ROUTE .MEDSUPPLY Qty: 4 2RF Rx Instructions: As directed (DME) Handicap Placard See Rx Instructions .ROUTE .MEDSUPPLY Qty: 1 0RF Rx Instructions: As directed, length of time 3 years (DME[facility] See Rx Instructions .ROUTE .MEDSUPPLY Qty: 1 0RF Rx Instructions: rollator with wheels and a seat Referrals / Follow Up: Nick Lindsey MD [Primary Care Provider] - Within 2 Weeks Disposition Disposition (needs filled in before D/C Order can be placed): Home, Self Care Charges/Coding Addendum Addendum: Patient seen and examined independently. Data and vitals reviewed. I agree with the above note by the nurse practitioner. This is a 61-year-old female with known history of seizures presents with recurrent seizures. Patient had recently stopped taking her levetiracetam. Physical exam: Patient is no acute distress and afebrile. Heart rate regular rate and rhythm plus S1-S2 with any murmurs Or rubs. Lungs are clear to auscultation bilaterally. Assessment and plan: Recurrent seizures: Likely due to noncompliance with medications. Expressed to her the importance of taking medications which she openly acknowledged. Advised patient no driving, operating heavy machinery nor baths nor swimming by herself for the next 6 months as long she is seizure-free. She expressed understanding. Follow-up with neurology as outpatient. Aspiration pneumonia: Secondary to seizure. Augmentin. Greater than 35minutes spent discussing with the patient, reviewing data, documentations. Visit Charges Inpatient E&M: 45818 Disch Hosp
--- NOTE | 2022-02-24 11:53 | PHA.DC.MC ---
Addendum entered and electronically signed by Marsha Catalan 02/24/22 11:55: Counseled by manager clinical pharmacy, Prasad. Original Note: Pharmacy Service has performed discharge medication reconciliation and counseling for this patient. 1. AUGMENTIN 500/125MG 1T PO Q8 X 5 DAYS The patient's discharge medication list was reviewed for discrepancies and discrepancies were resolved. Home Medications buprenorphine 15 mcg/hour weekly transdermal patch 15 mcg topical QWEEK PAIN 05/23/20 Handicap Placard #1 ea 08/13/20 pregabalin 75 mg capsule 75 mg PO TID 10/05/20 walker #1 ea 10/05/20 comp.stocking,thigh,long,x-lrg #4 ea 01/29/21 albuterol sulfate 90 mcg/actuation aerosol inhaler 2 puff inhalation Q6H PRN shortness of breath or wheezing #8.5 grams 04/11/21 aripiprazole 5 mg tablet 5 mg PO BID DEPRESSION #180 tabs 04/11/21 baclofen 20 mg tablet 10 mg PO TID PRN Spasms #30 tabs 04/11/21 escitalopram oxalate 20 mg tablet 20 mg PO DAILY DEPRESSION #90 tabs 04/11/21 fenofibrate nanocrystallized 48 mg tablet 48 mg PO DAILY CHOLESTEROL #90 tabs 04/11/21 omeprazole 40 mg capsule,delayed release 40 mg PO DAILY GERD #90 caps 04/11/21 cetirizine 10 mg tablet (Zyrtec) 10 mg PO DAILY PRN Congestion 08/14/21 fluticasone propionate 50 mcg/actuation nasal spray,suspension (Flonase Allergy Relief) 2 spray intranasal DAILY PRN allergy symptoms #15.8 mL 09/03/21 lisinopril 20 mg-hydrochlorothiazide 25 mg tablet 1 tab PO DAILY BP #90 tabs 11/01/21 mirtazapine 15 mg disintegrating tablet 15 mg PO QHS DEPRESSION #90 tabs 11/25/21 levetiracetam 750 mg tablet 750 mg PO BID #180 tabs 11/26/21 buspirone 5 mg tablet 5 mg PO TID DEPRESSION #270 tabs 02/17/22 amoxicillin 500 mg-potassium clavulanate 125 mg tablet 1 tab PO Q8H #15 tabs 02/24/22 The patient was counseled on the following discharge medications and changes in medications for homegoing were reviewed. The Reason for Use, instructions for use, and potential side effects were reviewed for all new medications. The patient's questions regarding all of their medications were answered. The patient was able to verbally demonstrate an understanding of their discharge medications.
--- NOTE | 2022-02-24 13:34 | NURSING ---
All charting and medication administration completed by Jeremy Fine RN done under the supervision of this RN.
== END 2022-02-24 13:31 | disposition home or self-care (01) | DRG 137 ==
LOC: ED 18:55 → PCU 20:25
PROVIDERS: Family Medicine; Physician Assistant; Admitting Provider Internal Medicine; Emergency Provider Emergency Medicine; PCP Internal Medicine
DX: J69.0 Pneumonitis due to inhalation of food and vomit (principal); G40.909 Epilepsy, unspecified, not intractable, without status epilepticus; N17.9 Acute kidney failure, unspecified; N18.31 Chronic kidney disease, stage 3a; E86.1 Hypovolemia; R09.02 Hypoxemia; I12.9 Hypertensive chronic kidney disease with stage 1 through stage 4 chronic kidney disease, or unspecified chronic kidney disease; J30.9 Allergic rhinitis, unspecified; M54.16 Radiculopathy, lumbar region; M54.30 Sciatica, unspecified side; G89.4 Chronic pain syndrome; E78.00 Pure hypercholesterolemia, unspecified; K21.9 Gastro-esophageal reflux disease without esophagitis; F31.9 Bipolar disorder, unspecified; F41.9 Anxiety disorder, unspecified; E66.9 Obesity, unspecified; Z68.34 Body mass index [BMI] 34.0-34.9, adult; F17.210 Nicotine dependence, cigarettes, uncomplicated; Z91.14 Patient's other noncompliance with medication regimen; Z20.822 Contact with and (suspected) exposure to COVID-19
CPT/HCPCS: 36415; 71045; 80048; 80076; 80307; 81001; 82550; 82962; 83735; 84100; 84443; 85025; 87811; 94640; 97110; 97162; 97165; 97530; 97535; 99251; 99285; 99406; J7030; A4216; G0463; J0295

== ENCOUNTER → 2022-03-12 | Outpatient (CLI) | payer MEDICAID, SELFPAY | END | disposition home or self-care (01) | LOC: LABSPEC 16:07 | PROVIDERS: PCP Internal Medicine; Referring Provider Internal Medicine; Visit Provider Internal Medicine | DX: R05.9 Cough, unspecified (principal); J02.9 Acute pharyngitis, unspecified; Z20.822 Contact with and (suspected) exposure to COVID-19 | CPT/HCPCS: 87635; U0003; U0005 ==

== ENCOUNTER 2022-03-20 13:00 | Outpatient (RCR) | payer MEDICAID, SELFPAY ==
--- NOTE | 2021-12-31 13:38 | HP.PTEVAL_ITS ---
Patient's Visit Information CASI APARICIO is a 61 year old F referred to Physical Therapy by LACEY Morales with a diagnosis of LUMBAR RADICULOPATHY, SPONDYLOSIS AND SPONDYLOLITHESIS. Date of Evaluation: 12/31/21 Physical Therapist: Falguni Palma, PT, Cert MDT - Visit Plan Frequency: 2-3x /Week Duration: 4-6 Weeks Plan: AQUATIC THERAPY FOR PAIN RELEIF, POSTURE CORRECTION/STRENGTHENING, INSTRUCTION IN APPROPRIATE BODY MECHANICS AND ACTIVITY MODIFICATIONS. DLS STARTING WITH A NEUTRAL SPINE PROGRESSING ROM TOLERATED. GRAHAM LE ROM, STRETCHING AND STRENGTHENING. HEP INSTRUCTION. - Subjective Work/Leisure: UNEMPLOYEED. Disability: NO. Present symptoms: CONSTANT LBP AND CONSTANT GRAHAM LE PAIN. DENIES GRAHAM LE NUMBNESS AND TINGLING. Present since: CHRONIC. Pain Scale: WORST 9/10, LEAST 5/10. Currently: 8/10. Commenced as a result of: NO APPARENT REASON. Worse: STANDING AND WALKING, PROLONGED SITTING. JUST ABOUT ANYTHING CAN MAKE IT WORSE. DOING LAUNDRY. SWEEPING THE FLOOR - VACUUMING, MOPPING THE FLOORS. Better: SOMETIMES ICE, LYING DOWN ON RIGHT SIDE, PAIN PATCH. Disturbed sleep: NO. Previous history/Previous treatment: BACK SURGERIES 1998 AND 2014. ROBERTO'S. PHYSICAL THERAPY. NO CHIROPRACTOR. Treatment this episode: PAIN MGMT PROCEEDURE PENDING TO BURN THE NERVES ON THE RIGHT SIDE PER PATIENT REPORT. Coughing/sneezing/straining: NEGATIVE. Gait: WALKER DEPENDENT. PATIENT REPORTS SHE GETS NERVOUS WITHOUT IT AND SHE HURTS ALL THE TIME. IT HURTS MORE WHEN SHE DOESN'T HAVE THE WALKER TO LEAN ON. ALSO USES WALKER BECAUSE SHE DOESN'T WANT TO FALL. NO RECENT FALLS. PATIENT REPORTS HER LEGS HURT AND FEEL WEAK. PATIENT REPORTS SHE THINKS SHE CAN WALK ABOUT 1/4 MILE WITH HER WALKER IF SHE CAN GO AT HER OWN PACE BUT IT HURTS. Bowel or Bladder Dysfunction: NO. Accidents: NONE RECENT. Unexplained weight loss: NO. Imaging: NONE RECENT PER PATIENT REPORT. PMH/Recent major surgery: HTN, SEIZURES - LAST ONE WAS ABOUT A YEAR AGO - ON MEDICATION, H/O LOW BACK SURERIES 1998, 2014, COPD. OA. R ANKLE ORIF FROM FALL ABOUT 2 YEARS AGO. - Objective Sitting/Standing Posture: POOR. FH. RS'S. Lordosis: SCOLIOSIS. SHIFTED RIGHT. Active Correction of posture: NE. Other Observations: THIS PATIENT AMBULATES INDEP'LY INTO PT TODAY WITH ROLLATOR. SHE WALKS WITH DECREASED GRAHAM STRIDE LENGTH AND INCREASED TRUNK FLEXION. Sensory deficit: GRAHAM LE LIGHT TOUCH SENSATION IS GROSSLY INTACT AND SYMMETRICAL. ROM deficit: TIGHT GRAHAM LE HS'S AND GASTROC SOLEUS COMPLEX'S. Motor deficit: GRAHAM LE'S GROSSLY 5/5 WITH MMT'ING EXCEPT HIPS 4/5. Dural Signs: NEGATIVE GRAHAM LE'S. Lumbar mvmt loss: flex - MIN. ext - ATRHUR. R SG - ARTHUR. L SG - ARTHUR. Core strength: POOR. Palpation: TENDERNESS WITH LIGHT PALPATION OF GRAHAM LUMBAR AND GRAHAM HIP REGIONS. RIGHT CALF SWELLING AND SHINNY SKIN DISTAL LEG AND ANKLE. PATIENT REPORTS IT HAS BEEN LIKE THAT SINCE HER ANKLE SX. TWO YEARS AGO. - Balance/Special Test Scores Oswestry Low Back Score: 27 TUG Test Time Seconds: 17.16 30 Second Chair Rise Test Seconds: 7 - Goals Goal 1:: DECREASE C/O BACK AND LEG PAIN Goal Time Frame: 4-6 Weeks Goal 2:: IMPROVE PERSONAL CARE, LIFTING, WALKING, SITTING, STANDING, SOCIAL LIFE, TRAVEL AND HOMEMAKING FUNCTION Goal Time Frame: 4-6 Weeks Goal 3:: INSTRUCT IN PROPHYLAXIS Goal Time Frame: 4-6 Weeks - Anticipated Interventions Patient/Client Instruction: Educate patient on: Condition, Plan of Care, Risk Factors For the Purpose of:: To improve self management Therapeutic Exercise to Include: Strength training, Balance training, Body mechanics, Postural training, Flexibilty training, Gait and locomotor training, Neuromotor development, In an aquatic setting, Dynamic Lumbar Stabilization For the Purpose of:: To decrease pain, To improve muscle performance and motor function, To improve ability to perform ADL's, To increase tolerance to activity/condition/position, To improve ability of physical actions for home/community/work/leisure, To improve gait and locomotor functions Thank you for the opportunity to evaluate your patient. For Medicare and Medicare HMO plans, please review the plan of care and approve it. It will need to be FAXED BACK to us at [phone] for Medicare purposes. For Medicare only, by signing this I certify the plan of care. Please let me know if there are questions or concerns regarding this plan of care. Physician Signature: Date:
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
== END 2022-03-20 19:00 | disposition home or self-care (01) ==
LOC: PT 13:00
PROVIDERS: PCP Internal Medicine; Referring Provider Nurse Practitioner Family; Visit Provider Nurse Practitioner Family
DX: M51.17 Intervertebral disc disorders with radiculopathy, lumbosacral region (principal); M46.96 Unspecified inflammatory spondylopathy, lumbar region; M47.27 Other spondylosis with radiculopathy, lumbosacral region; M96.1 Postlaminectomy syndrome, not elsewhere classified; M79.10 Myalgia, unspecified site; M43.16 Spondylolisthesis, lumbar region; M46.1 Sacroiliitis, not elsewhere classified
CPT/HCPCS: 97110; 97113; 97162; 97164

== ENCOUNTER → 2022-03-28 | Outpatient (CLI) | payer MEDICAID, SELFPAY ==
[2022-03-28 12:47] LABS: Ammonia < 10.0 umol/L (11-32)
[2022-04-03 08:24] LABS: KEPPRA (LEVETIRACETAM) 54.7 ug/mL (10.0-40.0)
== END | disposition home or self-care (01) ==
LOC: MTLAB 11:26
PROVIDERS: PCP Internal Medicine; Referring Provider Psychiatry & Neurology Neurology; Visit Provider Psychiatry & Neurology Neurology
DX: G40.909 Epilepsy, unspecified, not intractable, without status epilepticus (principal)
CPT/HCPCS: 36415; 80177; 82140

== ENCOUNTER 2022-04-15 00:41 | Inpatient (IN) | payer MEDICAID, SELFPAY ==
[2022-04-15] VITALS (37 sets, daily range): BP systolic 84–160; BP diastolic 40–92; PULSE 67–91; RESP 13–27; TEMP 36.3–37.4; O2SAT 86–96; BMI 35.2; BMI 34.6
--- NOTE | 2022-04-15 00:46 | EKG12_ITS ---
Test Reason : DYSRHYTHMIA Blood Pressure : / mmHG Vent. Rate : 097 BPM Atrial Rate : 097 BPM P-R Int : 208 ms QRS Dur : 084 ms QT Int : 332 ms P-R-T Axes : 043 003 048 degrees QTc Int : 421 ms Normal sinus rhythm Low voltage QRS RSR' in V1-Non Diagnostic Confirmed by FELA DUBOIS, ADILENE ([id number]), editor newspaper TONYA BOLANOS ([id number]) on 04/16/2022 9:28:06 AM Referred By: NADEGE Confirmed By:ADILENE CHAHAL MD
--- NOTE | 2022-04-15 00:46 | RAD_ITS ---
EXAM: XR CHEST, 1 VIEW CLINICAL INDICATION: dyspnea dyspnea TECHNIQUE: Frontal view of the chest. This report was created using [employer] report generation technology. COMPARISON: 02/23/2022. FINDINGS: LUNGS AND PLEURAL SPACES: Unremarkable. No consolidation or edema. No pneumothorax. No effusion. HEART: The heart is mildly enlarged. MEDIASTINUM: Central airways and mediastinal contour are unremarkable. BONES/JOINTS: Unremarkable. SOFT TISSUES: Unremarkable. VASCULATURE: There is atherosclerotic calcification of the aortic arch. RAD/Chest 1 View (Portable) IMPRESSION: 1. Mild cardiomegaly. 2. No evidence for acute cardiopulmonary pathology. Electronically Signed: Eduardo Carmona MD at 2:18 EDT Reading Location ID and State: [facility] / [place] , Service support ,
--- NOTE | 2022-04-15 00:48 | EDS_ITS ---
HPI History of Present Illness Chief Complaint: Shortness of Breath Informant: patient Onset/Context/Timing Onset: Days (2) Context: gradual and onset Timing: Continuous Quality: Positive for Wheezing Current Severity: Severe Maximum Severity: Severe Worsened by: Exertion and Coughing Relieved by: Nothing (Has not tried anything. No breathing treatments or albuterol at home.) Associated Symptoms cough Chest Pain: Positive for None Narrative Narrative: Patient has had a bad cough, congestion, no fevers or chills or weakness but has been getting short of breath with it, all within the last couple days. No known contact with anyone else ill. She has COPD not on home oxygen but for EMS she was 86% on room air, they placed her on 3 L nasal cannula, currently 88% here upon initial evaluation and dyspneic. They gave her a duo nebulizer treatment which they said did not seem to help very much. Patient does feel like this is her COPD. She denies having any heart problems, she has chronic edema of her legs that she states is no different than usual. [facility] Medical History Acute conjunctivitis of both eyes Acute conjunctivitis, right eye Arthritis Asthma Breast cancer screening Bruising Chronic kidney disease Chronic pain Colon cancer screening COPD (chronic obstructive pulmonary disease) Cough Depression Depression Dietary restriction Edema of eyelid of both eyes Epilepsy Flu vaccine need GI bleed High cholesterol History of edema History of pain when walking History of ulceration Hypertension Leg cramps Lower extremity edema Neuropathy right ankle surgery Seasonal allergies Seizures Shortness of breath Smoker Sore throat Sprain of cervical neck Stasis dermatitis Tobacco abuse Venous insufficiency of both lower extremities Vitamin D deficiency Walker as ambulation aid Wears glasses Wears partial dentures Home Medications buprenorphine 15 mcg/hour weekly transdermal patch 15 mcg topical QWEEK PAIN 05/23/20 [History Last Taken 02/24/21] Handicap Placard #1 ea 08/13/20 [Rx Last Taken 02/24/21] pregabalin 75 mg capsule 75 mg PO TID 10/05/20 [History Last Taken 02/24/21] walker #1 ea 10/05/20 [Rx Last Taken 02/24/21] comp.stocking,thigh,long,x-lrg #4 ea 01/29/21 [Rx Last Taken 02/24/21] albuterol sulfate 90 mcg/actuation aerosol inhaler 2 puff inhalation Q6H PRN shortness of breath or wheezing #8.5 grams 04/11/21 [Rx Last Taken Unknown] baclofen 20 mg tablet 10 mg PO TID PRN Spasms #30 tabs 04/11/21 [Rx Last Taken Unknown] escitalopram oxalate 20 mg tablet 20 mg PO DAILY DEPRESSION #90 tabs 04/11/21 [Rx Last Taken Unknown] fluticasone propionate 50 mcg/actuation nasal spray,suspension (Flonase Allergy Relief) 2 spray intranasal DAILY PRN allergy symptoms #15.8 mL 09/03/21 [Rx Last Taken Unknown] lisinopril 20 mg-hydrochlorothiazide 25 mg tablet 1 tab PO DAILY BP #90 tabs 11/01/21 [Rx Last Taken Unknown] mirtazapine 15 mg disintegrating tablet 15 mg PO QHS DEPRESSION #90 tabs 11/25/21 [Rx Last Taken Unknown] levetiracetam 750 mg tablet 750 mg PO BID #180 tabs 11/26/21 [Rx Last Taken Unknown] buspirone 5 mg tablet 5 mg PO TID DEPRESSION #270 tabs 02/17/22 [Rx Last Taken Unknown] omeprazole 40 mg capsule,delayed release 40 mg PO DAILY GERD #90 caps 02/26/22 [Rx Last Taken Unknown] cetirizine 10 mg tablet (Zyrtec) 10 mg PO DAILY PRN Congestion #90 tabs 03/12/22 [Rx Last Taken Unknown] fenofibrate nanocrystallized 48 mg tablet 48 mg PO DAILY CHOLESTEROL #90 tabs 04/11/22 [Rx Last Taken Unknown] aripiprazole 5 mg tablet 5 mg PO BID DEPRESSION #180 tabs 04/14/22 [Rx Last Taken Unknown] Allergy/AdvReac Type Severity Reaction Status Date / Time aspirin AdvReac Severe Upset Verified 03/12/22 15:34 Stomach Penicillins AdvReac Severe vomiting Verified 03/12/22 15:34 Family History Mother Breast cancer Hypertension Hyperlipemia Cancer melanoma, lyphoma ulcers Father Diabetes Myocardial infarction, Onset Age: 67 Hypertension Depression Sister Depression Hyperlipemia Surgical History H/O: hysterectomy History of ankle surgery History of back surgery Social History household members: friend(s) Smoking Status: Current every day smoker tobacco type: cigarettes Tobacco: How many years used: 25 second hand exposure: No alcohol intake: never substance use type: does not use what type of physical activity do you participate in: walking frequency: 3-4 times per week dari/quaker: Spiritism seatbelt use: sometimes ROS ROS ED Constitutional Constitutional ED: Denies chills or fever(s) Eyes Eyes: Denies change in vision or diplopia ENT ENT ED: Reports nasal congestion; Denies sore throat Cardiovascular Cardiovascular: Reports leg edema; Denies chest pain or palpitations Respiratory/Chest Respiratory/Chest: Reports cough and dyspnea Gastrointestinal Gastrointestinal: Denies abdominal pain, diarrhea, nausea or vomiting Genitourinary Genitourinary ED: Denies dysuria or hematuria Musculoskeletal Musculoskeletal: Denies back pain or neck pain Integumentary Denies abscess or rash Neurologic Neurologic: Denies headache(s), paresthesias or weakness Psychiatric Psychiatric: Denies anxiety or suicidal thoughts EXAM Physical Exam Const Vital Signs: 04/15/22 00:41 04/15/22 00:46 04/15/22 00:48 Temperature 97.6 F L Temperature Source Temporal Pulse Rate 91 89 Respiratory Rate 27 H 27 H Respiratory Effort Short of Breath Accessory Muscle Use Respiratory Depth Deep Respiratory Pattern Tachypnea Blood Pressure 158/82 H Blood Pressure Mean 107 Pulse Ox 86 94 Oxygen Delivery Method Room Air Nasal Cannula Oxygen Flow Rate (L/min) 2 2 Fraction of Inspired Oxygen (FIO2) 04/15/22 01:07 04/15/22 01:12 04/15/22 00:52 Temperature 98.8 F Temperature Source Temporal Pulse Rate 86 90 Respiratory Rate 16 24 H Respiratory Effort Respiratory Depth Respiratory Pattern Tachypnea Blood Pressure 158/82 H Blood Pressure Mean 107 Pulse Ox 94 94 Oxygen Delivery Method Nasal Cannula Nasal Cannula Oxygen Flow Rate (L/min) 2 3 Fraction of Inspired Oxygen (FIO2) 04/15/22 00:52 04/15/22 02:15 04/15/22 02:41 Temperature 98.8 F Temperature Source Temporal Pulse Rate 90 87 Respiratory Rate 22 H 19 H 17 Respiratory Effort Short of Breath Respiratory Depth Shallow Respiratory Pattern Tachypnea Irregular Blood Pressure 160/80 H Blood Pressure Mean 106 Pulse Ox 94 94 94 Oxygen Delivery Method Nasal Cannula Bi-pap Oxygen Flow Rate (L/min) 3 Fraction of Inspired Oxygen (FIO2) 40 04/15/22 02:41 Temperature 98.8 F Temperature Source Temporal Pulse Rate Respiratory Rate 17 Respiratory Effort Respiratory Depth Respiratory Pattern Blood Pressure Blood Pressure Mean Pulse Ox Oxygen Delivery Method Oxygen Flow Rate (L/min) Fraction of Inspired Oxygen (FIO2) Positive well nourished and well developed General Appearance ED: well developed and NAD HEENT Reports moist mucous membranes normocephalic and atraumatic Eyes PERRL and EOMs intact bilaterally Neck full ROM and supple Resp Resp Narrative: Mild respiratory distress. Wheezes and rails throughout all lung alas. Trachea midline. Breath sounds equal bilaterally. Cardio regular rate, regular rhythm and no murmurs GI non-tender and non-distended Auscultation: normoactive bowel sounds Palpation: soft Back/Spine no CVA tenderness General Back: other FROM Extremity normal to inspection General Extremety ED: Yes edema; Negative for pulses abnormal or tenderness General Extremity: edema bilateral lower extremity Details: mild (With changes of chronic stasis dermatitis evident); Negative for pulses abnormal Neuro oriented x3, CN's II-XII intact bilaterally and no sensory deficits noted Sensorium / Orientation: awake and alert Motor Exam: strength 5/5 throughout Skin no rashes or lesions noted and no wounds MDM MDM MDM Narrative Medical decision making narrative: Patient appears to be having a COPD exacerbation but she has chronic edema in her legs, and she sounds coarse in her lungs. Work-up shows a normal BNP ruling out acute decompensated congestive heart failure, and her chest x-ray 1 view on my interpretation does not show acute CHF, nor does show acute infiltrates. She was given multiple nebulizer treatments, she said it did help her breathing but she was very sleepy and lethargic and still had some labored breathing. Therefore I had respiratory do an ABG which confirmed hypercapnia with a PCO2 of 77 and a mild acute acidosis as a result. Therefore she was placed on BiPAP and we will admit her to the hospital for further treatment. Solu-Medrol given, will defer antibiotics to hospitalist, as they will only be needed to prevent bacterial superinfection. COVID and influenza negative rapid testing here. Lab Data Attestation: I reviewed the patient's lab results. Labs: Laboratory Results - last 24 hr 1004/15/22 04/15/22 00:49 00:49 00:49 WBC 8.1 RBC 5.12 Hgb 13.5 Hct 45.2 MCV 88.3 MCH 26.4 L MCHC 29.9 L RDW Std Deviation 50.8 H RDW Coeff of [place] 15.8 H Plt Count 255 MPV 10.1 Immature Gran % (Auto) 0.500 Neut % (Auto) 77.6 H Lymph % (Auto) 14.7 L [place] % (Auto) 5.3 Eos % (Auto) 1.5 Baso % (Auto) 0.4 Absolute Neuts (auto) 6.3 Absolute Lymphs (auto) 1.20 Nucleated RBC % 0 PT INR APTT Sodium 140 Potassium 4.8 Chloride 104 Carbon Dioxide 32.0 Anion Gap 4 L BUN 39 H Creatinine 1.22 H Estim Creat Clear Calc 45.33 Est GFR (MDRD) Af Amer 58 L Est GFR (MDRD) Non-Af 48 L BUN/Creatinine Ratio 32.0 H Glucose 110 H Lactic Acid Calcium 9.9 Troponin I High Sens < 3 L B-Natriuretic Peptide 42.9 Urine Color Urine Clarity Urine pH Ur Specific [place] Urine Protein Urine Glucose (UA) Urine Ketones Urine Occult Blood Urine Nitrite Urine Bilirubin Urine Urobilinogen Ur Leukocyte Esterase Urine RBC Urine WBC Ur Squamous Epith Cells Urine Bacteria Hyaline Casts Urine Mucus 04/15/22 04/15/22 04/15/22 00:49 01:03 01:40 WBC RBC Hgb Hct MCV MCH MCHC RDW Std Deviation RDW Coeff of [place] Plt Count MPV Immature Gran % (Auto) Neut % (Auto) Lymph % (Auto) [place] % (Auto) Eos % (Auto) Baso % (Auto) Absolute Neuts (auto) Absolute Lymphs (auto) Nucleated RBC % PT 12.7 INR 1.0 APTT 32.8 Sodium Potassium Chloride Carbon Dioxide Anion Gap BUN Creatinine Estim Creat Clear Calc Est GFR (MDRD) Af Amer Est GFR (MDRD) Non-Af BUN/Creatinine Ratio Glucose Lactic Acid 0.9 Calcium Troponin I High Sens B-Natriuretic Peptide Urine Color Yellow Urine Clarity Clear Urine pH 5.0 Ur Specific [place] 1.020 Urine Protein Negative Urine Glucose (UA) Normal Urine Ketones Negative Urine Occult Blood 10 H Urine Nitrite Negative Urine Bilirubin Negative Urine Urobilinogen Normal Ur Leukocyte Esterase Negative Urine RBC 0-5 SEEN Urine WBC 0 SEEN Ur Squamous Epith Cells 0-5 SEEN Urine Bacteria RARE Hyaline Casts 0-5 SEEN Urine Mucus 0 SEEN ABG Data ABG results: ABG 04/15/22 02:15 Specimen Type ART Sample Site R Radial pH 7.23 L Bicarbonate Actual 32.0 H Total CO2 34 Base Excess 4 H O2 Saturation 87 L ABG pCO2 76.9 H* ABG pO2 66 L Fran Test Positive O2 Delivery Device Cannula Liter Flow 4.0 Crit Call To/Read Back Yes Blood Gas Notified Whom Wai Radiography Diagnostic Testing: Clinical Impression(s) from Imaging Studies Chest X-Ray 04/15/22 00:46 IMPRESSION: 1. Mild cardiomegaly. 2. No evidence for acute cardiopulmonary pathology. Electronically Signed: Eduardo Carmona MD at 2:18 EDT Reading Location ID and State: [facility] / [place] , Service support , Rhythm Strip Rhythm Strip: Sinus Rhythm Rate: 95 Ectopy: None EKG Initial EKG: Attestation: I personally reviewed and interpreted this EKG as follows: Interpretation: Sinus Rhythm and No Acute Injury Pattern Critical Care Time Critical Care Time: Yes Critical care time (excluding procedures): 30-74 minutes (35 min), Including time spent:, Discussing w/Patient &/or Family/Mounter Automatic, Discussing w/Consultants, Arranging Admission or Transfer and Performing Direct Patient Care at Bedside Discharge Plan Dx/Rx/DC Orders Clinical Impression: Acute respiratory failure with hypoxia and hypercapnia, Acute exacerbation of chronic obstructive pulmonary disease Disposition Disposition: Acute Care [facility]
[2022-04-15] MEDS: Albuterol 2.5 MG/3 ML VIAL.NEB. INHALATION ×3 (00:52→01:20)
[2022-04-15 00:54] LABS: Absolute Neutrophil Count 6.3 X10^3/uL (2.0-7.7); Basophil# 0.03 X10^3/uL; Basophil% 0.4 % (0-1); Eosinophil# 0.12 X10^3/uL; Eosinophils% 1.5 % (0-5); Hematocrit 45.2 % (37-47); Hemoglobin 13.5 g/dL (12.0-15.0); Lymphocyte % 14.7 % (19-41); Mean Corp Hgb Conc 29.9 g/dL (32-36); Mean Corpuscular Hgb 26.4 pg (27.0-32.0); Mean Corpuscular Volume 88.3 fL (81-99); Mean Platelet Vol. 10.1 fl (6.2-12.0); Monocyte# 0.43 X10^3/uL; Monocyte% 5.3 % (0-10); NRBC Flagged by Analyzer 0 % (0-5); Neutrophil # 6.32 X10^3/uL (2.7-7.7); Neutrophil % 77.6 % (47-70); Platelet Count 255 K/mm3 (150-450); RBC Distribution Width CV 15.8 % (11.6-14.6); RBC Distribution Width SD 50.8 fl (35.1-43.9); Red Blood Count 5.12 M/mm3 (4.2-5.4); White Blood Count 8.1 K/mm3 (4.4-11.0)
[2022-04-15] MEDS: 0.9% Normal Saline 1,000 ML 150 ML IV (01:14)
[2022-04-15 01:18] LABS: Prothrombin Time (Protime)PT. 12.7 SECONDS (11.7-14.9)
[2022-04-15 01:19] LABS: Partial Thromboplast Time 32.8 Seconds (24.1-36.2)
[2022-04-15 01:25] LABS: BNP,B-Type NATRIURETIC PEPTIDE 42.9 pg/mL (0-100)
--- NOTE | 2022-04-15 01:26 | CPS ---
Additional x2 Albuterol given to pt. in ER as well
[2022-04-15 01:40] LABS: Anion Gap 4 (5-15); BUN 39 mg/dL (7-18); Calcium,Total 9.9 mg/dL (8.5-10.1); Chloride 104 mmol/L (98-107); Creatinine, Serum 1.22 mg/dL (0.55-1.02); EST Glomerular Filtration Rate 48 mL/min (>60); Est Glom Filt Rate - Afr Amer 58 mL/min (>60); Estimated Creatinine Clearance 45.33 ml/min; Glucose 110 mg/dL (74-106); Potassium 4.8 mmol/L (3.5-5.1); Sodium Level 140 mmol/L (136-145); Troponin-I HS < 3 pg/mL (3.0-54.0)
[2022-04-15 01:48] LABS: Mucous, Urine 0 SEEN /hpf (<or=2+); White Blood Cells 0 SEEN /hpf (0-5)
[2022-04-15 01:54] LABS: Lactic Acid 0.9 mmol/L (0.4-1.9)
[2022-04-15 01:55] LABS: Color, Urine Yellow (Yellow); Glucose, Dipstick Normal (Normal); Ketone-Dipstick Negative (Negative); Leukocyte Esterase-Dipstick Negative /ul (Negative); Nitrite-Dipstick Negative (Negative); Occult Blood-Urine 10 /ul (Negative); Protein-Dipstick Negative (Negative); Urine Bilirubin Dipstick Negative (Negative); Urine Clarity Clear (Clear); Urine Urobilinogen Normal (Normal)
[2022-04-15 02:05] LABS: Red Blood Cells-Urine 0-5 SEEN /hpf (0-5); Squamous Epithelial Cells - UA 0-5 SEEN /hpf (5-10)
[2022-04-15 02:06] LABS: Bacteria RARE /hpf (None Seen); Hyaline Cast 0-5 SEEN /lpf (0-5)
[2022-04-15 02:21] LABS: Allen Test Positive; Base Excess 4 mmol/L (-2 to +2); Blood Gas Specimen Type ART; O2 Delivery Device Cannula; PO2 66 mmHG (75-100); SITE R Radial; SO2 87 % (95-99); Total Carbon Dioxide 34 mmol/L; pCO2 76.9 mmHg (35-45); pH 7.23 (7.35-7.45)
[2022-04-15] MEDS: MethylPREDNISolone 125 MG/2 ML Vial IV (02:42)
--- NOTE | 2022-04-15 02:58 | HP.PCM_ITS ---
HPI - General General Date of Admission: 04/15/22 Date of Service: 04/15/22 Chief Complaint: Shortness of breath HPI Narrative CASI APARICIO, is a 61 F who presents to the emergency room with chief complaint of shortness of breath. Onset of symptoms began approximately 2 days ago and today required EMS to come to her home. Her oxygen saturation was 86% on room air and only improved to 88% with 3 L nasal cannula. Patient has signi ficant past medical history of COPD and has not taken any inhaler since onset of symptoms. Chest x-ray shows no acute findings CBC is unremarkable, ABG shows acute CO2 retention with partial compensation and hypoxemia. Patient was placed on BiPAP in the ER and his improved her oxygen saturation but remains tired. Patient will be admitted to progressive care unit and continued on BiPAP therapy. [facility] Medical History Acute conjunctivitis of both eyes Acute conjunctivitis, right eye Arthritis Asthma Breast cancer screening Bruising Chronic kidney disease Chronic pain Colon cancer screening COPD (chronic obstructive pulmonary disease) Cough Depression Depression Dietary restriction Edema of eyelid of both eyes Epilepsy Flu vaccine need GI bleed High cholesterol History of edema History of pain when walking History of ulceration Hypertension Leg cramps Lower extremity edema Neuropathy right ankle surgery Seasonal allergies Seizures Shortness of breath Smoker Sore throat Sprain of cervical neck Stasis dermatitis Tobacco abuse Venous insufficiency of both lower extremities Vitamin D deficiency Walker as ambulation aid Wears glasses Wears partial dentures Home Medications buprenorphine 15 mcg/hour weekly transdermal patch 15 mcg topical QWEEK PAIN 05/23/20 [History Last Taken 02/24/21] Handicap Placard #1 ea 08/13/20 [Rx Last Taken 02/24/21] pregabalin 75 mg capsule 75 mg PO TID 10/05/20 [History Last Taken 02/24/21] walker #1 ea 10/05/20 [Rx Last Taken 02/24/21] comp.stocking,thigh,long,x-lrg #4 ea 01/29/21 [Rx Last Taken 02/24/21] albuterol sulfate 90 mcg/actuation aerosol inhaler 2 puff inhalation Q6H PRN shortness of breath or wheezing #8.5 grams 04/11/21 [Rx Last Taken Unknown] baclofen 20 mg tablet 10 mg PO TID PRN Spasms #30 tabs 04/11/21 [Rx Last Taken Unknown] escitalopram oxalate 20 mg tablet 20 mg PO DAILY DEPRESSION #90 tabs 04/11/21 [Rx Last Taken Unknown] fluticasone propionate 50 mcg/actuation nasal spray,suspension (Flonase Allergy Relief) 2 spray intranasal DAILY PRN allergy symptoms #15.8 mL 09/03/21 [Rx Last Taken Unknown] lisinopril 20 mg-hydrochlorothiazide 25 mg tablet 1 tab PO DAILY BP #90 tabs 11/01/21 [Rx Last Taken Unknown] mirtazapine 15 mg disintegrating tablet 15 mg PO QHS DEPRESSION #90 tabs 11/25/21 [Rx Last Taken Unknown] levetiracetam 750 mg tablet 750 mg PO BID #180 tabs 11/26/21 [Rx Last Taken Unknown] buspirone 5 mg tablet 5 mg PO TID DEPRESSION #270 tabs 02/17/22 [Rx Last Taken Unknown] omeprazole 40 mg capsule,delayed release 40 mg PO DAILY GERD #90 caps 02/26/22 [Rx Last Taken Unknown] cetirizine 10 mg tablet (Zyrtec) 10 mg PO DAILY PRN Congestion #90 tabs 03/12/22 [Rx Last Taken Unknown] fenofibrate nanocrystallized 48 mg tablet 48 mg PO DAILY CHOLESTEROL #90 tabs 04/11/22 [Rx Last Taken Unknown] aripiprazole 5 mg tablet 5 mg PO BID DEPRESSION #180 tabs 04/14/22 [Rx Last Taken Unknown] Allergy/AdvReac Type Severity Reaction Status Date / Time aspirin AdvReac Severe Upset Verified 03/12/22 15:34 Stomach Penicillins AdvReac Severe vomiting Verified 03/12/22 15:34 Family History Mother Breast cancer Hypertension Hyperlipemia Cancer melanoma, lyphoma ulcers Father Diabetes Myocardial infarction, Onset Age: 67 Hypertension Depression Sister Depression Hyperlipemia Surgical History H/O: hysterectomy History of ankle surgery History of back surgery Social History household members: friend(s) Smoking Status: Current every day smoker tobacco type: cigarettes Tobacco: How many years used: 25 second hand exposure: No alcohol intake: never substance use type: does not use what type of physical activity do you participate in: walking frequency: 3-4 times per week dari/restorationist: Bahai seatbelt use: sometimes ROS Constitutional Constitutional: Denies chills or fever(s) Eyes Eyes: Denies change in vision ENT HEENT: Denies abnormal hearing Cardiovascular Cardiovascular: Denies chest pain Respiratory/Chest Respiratory/Chest: Reports shortness of breath at rest Gastrointestinal Gastrointestinal: Denies abdominal pain Genitourinary Genitourinary: Denies dysuria Neurologic Neurologic: Denies abnormal speech Psychiatric Psychiatric: Denies depression Vital Signs Vital Signs Vital Signs: 04/15/22 00:41 04/15/22 00:46 04/15/22 00:48 Temperature 97.6 F L Temperature Source Temporal Pulse Rate 91 89 Respiratory Rate 27 H 27 H Respiratory Effort Short of Breath Accessory Muscle Use Respiratory Depth Deep Respiratory Pattern Tachypnea Blood Pressure 158/82 H Blood Pressure Mean 107 Pulse Ox 86 94 Oxygen Delivery Method Room Air Nasal Cannula Oxygen Flow Rate (L/min) 2 2 Fraction of Inspired Oxygen (FIO2) 04/15/22 01:07 04/15/22 01:12 04/15/22 00:52 Temperature 98.8 F Temperature Source Temporal Pulse Rate 86 90 Respiratory Rate 16 24 H Respiratory Effort Respiratory Depth Respiratory Pattern Tachypnea Blood Pressure 158/82 H Blood Pressure Mean 107 Pulse Ox 94 94 Oxygen Delivery Method Nasal Cannula Nasal Cannula Oxygen Flow Rate (L/min) 2 3 Fraction of Inspired Oxygen (FIO2) 04/15/22 00:52 04/15/22 02:15 04/15/22 02:41 Temperature 98.8 F Temperature Source Temporal Pulse Rate 90 87 Respiratory Rate 22 H 19 H 17 Respiratory Effort Short of Breath Respiratory Depth Shallow Respiratory Pattern Tachypnea Irregular Blood Pressure 160/80 H Blood Pressure Mean 106 Pulse Ox 94 94 94 Oxygen Delivery Method Nasal Cannula Bi-pap Oxygen Flow Rate (L/min) 3 Fraction of Inspired Oxygen (FIO2) 40 04/15/22 02:41 Temperature 98.8 F Temperature Source Temporal Pulse Rate Respiratory Rate 17 Respiratory Effort Respiratory Depth Respiratory Pattern Blood Pressure Blood Pressure Mean Pulse Ox Oxygen Delivery Method Oxygen Flow Rate (L/min) Fraction of Inspired Oxygen (FIO2) Weight Weight: 217 lb 13.067 oz Body Mass Index (BMI) 35.2 Physical Exam Const alert General Appearance: cooperative HEENT normocephalic and head/scalp atraumatic Eyes EOMs intact bilaterally Neck General: trachea midline Resp Auscultation: wheezes expiratory wheezes; Negative for rales or rhonchi Cardio regular rate, regular rhythm, S1 normal heart sound, S2 normal heart sound and no murmurs GI soft to palpation Extremity no clubbing, cyanosis or edema Skin General Skin Exam: no breakdown Neuro no focal motor deficits Psych cooperative Results Lab / Micro Data Result Diagrams: 04/15/22 00:49 04/15/22 00:49 Labs: Laboratory Results - last 24 hr 04/15/22 00:49: WBC 8.1, RBC 5.12, Hgb 13.5, Hct 45.2, MCV 88.3, MCH 26.4 L, MCHC 29.9 L, RDW Std Deviation 50.8 H, RDW Coeff of [place] 15.8 H, Plt Count 255, MPV 10.1, Immature Gran % (Auto) 0.500, Neut % (Auto) 77.6 H, Lymph % (Auto) 14.7 L, [place] % (Auto) 5.3, Eos % (Auto) 1.5, Baso % (Auto) 0.4, Absolute Neuts (auto) 6.3, Absolute Lymphs (auto) 1.20, Nucleated RBC % 0 04/15/22 00:49: Sodium 140, Potassium 4.8, Chloride 104, Carbon Dioxide 32.0, Anion Gap 4 L, BUN 39 H, Creatinine 1.22 H, Estim Creat Clear Calc 45.33, Est GFR (MDRD) Af Amer 58 L, Est GFR (MDRD) Non-Af 48 L, BUN/Creatinine Ratio 32.0 H , Glucose 110 H, Calcium 9.9, Troponin I High Sens < 3 L 04/15/22 00:49: B-Natriuretic Peptide 42.9 04/15/22 00:49: PT 12.7, INR 1.0, APTT 32.8 04/15/22 01:03: Lactic Acid 0.9 04/15/22 01:40: Urine Color Yellow, Urine Clarity Clear, Urine pH 5.0, Ur Specific [place] 1.020, Urine Protein Negative, Urine Glucose (UA) Normal, Urine Ketones Negative, Urine Occult Blood 10 H, Urine Nitrite Negative, Urine Biliru bin Negative, Urine Urobilinogen Normal, Ur Leukocyte Esterase Negative, Urine RBC 0-5 SEEN, Urine WBC 0 SEEN, Ur Squamous Epith Cells 0-5 SEEN, Urine Bacteria RARE, Hyaline Casts 0-5 SEEN, Urine Mucus 0 SEEN Micro: Microbiology 04/15/22 02:04 Nasal Secretion SARS-CoV-2 & FLU Antigen (Rapid) - Final ABG Data ABG results: ABG 04/15/22 02:15 Specimen Type ART Sample Site R Radial pH 7.23 L Bicarbonate Actual 32.0 H Total CO2 34 Base Excess 4 H O2 Saturation 87 L ABG pCO2 76.9 H* ABG pO2 66 L Fran Test Positive O2 Delivery Device Cannula Liter Flow 4.0 Crit Call To/Read Back Yes Blood Gas Notified Whom Wai Rhythm Strip Rhythm Strip: Sinus Rhythm Rate: 95 Ectopy: None Radiology Impression Chest X-Ray 04/15/22 00:46 IMPRESSION: 1. Mild cardiomegaly. 2. No evidence for acute cardiopulmonary pathology. Electronically Signed: Eduardo Carmona MD at 2:18 EDT Reading Location ID and State: [facility] / [place] , Service support , Assessment & Plan Assessment/Plan (1) Acute respiratory failure with hypoxia and hypercapnia: (2) Acute exacerbation of chronic obstructive pulmonary disease: (3) Hypertension: QUALIFIERS: Hypertension type: primary hypertension Qualified Code(s): I10 - Essential (primary) hypertension (4) Chronic back pain: (5) Hyperlipidemia: (6) Smoking greater than 40 pack years: PLAN: Plan 1. Acute respiratory failure secondary to COPD exacerbation?continue patient on BiPAP initiated in the ER, admit patient to progressive care unit, start IV Solu-Medrol 40 mg IV every 8 hours, start DuoNeb inhalers every 4 hours as needed, continue oxygen supplementation as needed, respiratory therapy to follow and will repeat blood gas in a few hours 2. Hypertension?continue home medications 3. Hyperlipidemia?continue statin therapy 4. Smoking history?cessation encouraged 5. History of chronic back pain?continue home medications 6. DVT prophylaxis?low molecular weight heparin Charges/Coding Visit Charges Inpatient E&M: 87890 Init Hosp L3
[2022-04-15 04:31] LABS: Allen Test Positive; Base Excess 5 mmol/L (-2 to +2); Bicarbonate 31.6 mmol/L (22-26); Blood Gas Specimen Type ART; FI02 40; O2 Delivery Device BiPAP; PO2 68 mmHG (75-100); RR 14; SITE R Radial; SO2 90 % (95-99); Total Carbon Dioxide 34 mmol/L; Vt 500; pCO2 67.2 mmHg (35-45); pH 7.28 (7.35-7.45)
[2022-04-15 06:25] LABS: Absolute Lymphocyte Count 0.28 X10^3/uL (0.83-4.51); Basophil# 0.04 X10^3/uL; Basophil% 0.6 % (0-1); Eosinophil# 0.02 X10^3/uL; Eosinophils% 0.3 % (0-5); Hematocrit 39.7 % (37-47); Hemoglobin 12.4 g/dL (12.0-15.0); Lymphocyte # 0.28 X10^3/ul (0.83-4.51); Lymphocyte % 4.3 % (19-41); Mean Corp Hgb Conc 31.2 g/dL (32-36); Mean Corpuscular Hgb 27.3 pg (27.0-32.0); Mean Corpuscular Volume 87.4 fL (81-99); Monocyte# 0.23 X10^3/uL; Monocyte% 3.5 % (0-10); NRBC Flagged by Analyzer 0 % (0-5); Neutrophil # 5.98 X10^3/uL (2.7-7.7); Neutrophil % 90.8 % (47-70); POSITIVE COUNT YES; POSITIVE DIFFERENTIAL YES; Platelet Count 194 K/mm3 (150-450); RBC Distribution Width CV 15.8 % (11.6-14.6); RBC Distribution Width SD 50.5 fl (35.1-43.9); Red Blood Count 4.54 M/mm3 (4.2-5.4); White Blood Count 6.6 K/mm3 (4.4-11.0)
[2022-04-15 06:26] LABS: Differential Indicated SCAN CRITERIA MET
[2022-04-15 06:42] LABS: Anisocytosis 1+
[2022-04-15 06:44] LABS: Platelet Morphology CLUMPED
[2022-04-15 06:57] LABS: Anion Gap 6 (5-15); BUN 33 mg/dL (7-18); BUN/Creat Ratio 33.1 RATIO (10-20); Chloride 107 mmol/L (98-107); EST Glomerular Filtration Rate 60 mL/min (>60); Est Glom Filt Rate - Afr Amer 73 mL/min (>60); Estimated Creatinine Clearance 55.31 ml/min; Glucose 118 mg/dL (74-106); Potassium 4.4 mmol/L (3.5-5.1); Sodium Level 140 mmol/L (136-145)
[2022-04-15] MEDS: Ipratropium/Albuterol Sulfate 3 ML AMPUL.NEB INHALATION ×4 (07:16→19:14)
--- NOTE | 2022-04-15 08:13 | PCM.PN.HOSP ---
Subjective Subjective Patient is a 61-year-old lady admitted with progressive shortness of breath. An assessment of COPD with acute exacerbation made admitted to monitored bed for subsequent management Objective Data Objective Data Vital Signs: Vital Signs Temp Pulse Resp BP Pulse Ox O2 Del Method O2 Flow Rate 98.1 F 69 16 95/59 L 94 Bi-pap 3 04/15/22 08:05 04/15/22 08:05 04/15/22 08:05 04/15/22 08:05 04/15/22 08:05 04/15/22 08:05 04/15/22 01:12 FiO2 50 04/15/22 08:05 Oxygen Flow Rate (L/min) 3 Oxygen Delivery Method Bi-pap Weight: 97.3 kg Body Mass Index (BMI) 34.6 Intake & Output: Intake and Output for Last 24 Hours 04/13/22 04/14/22 04/15/22 23:59 23:59 23:59 Intake Total 587.5 / 587.5 Balance 587.5 / 587.5 Lab / Micro Data Result Diagrams: 04/15/22 05:43 04/15/22 05:43 Labs: Laboratory Results - last 24 hr 04/15/22 00:49: WBC 8.1, RBC 5.12, Hgb 13.5, Hct 45.2, MCV 88.3, MCH 26.4 L, MCHC 29.9 L, RDW Std Deviation 50.8 H, RDW Coeff of [place]ana 15.8 H, Plt Count 255, MPV 10.1, Immature Gran % (Auto) 0.500, Neut % (Auto) 77.6 H, Lymph % (Auto) 14.7 L, [place] % (Auto) 5.3, Eos % (Auto) 1.5, Baso % (Auto) 0.4, Absolute Neuts (auto) 6.3, Absolute Lymphs (auto) 1.20, Nucleated RBC % 0 04/15/22 00:49: Sodium 140, Potassium 4.8, Chloride 104, Carbon Dioxide 32.0, Anion Gap 4 L, BUN 39 H, Creatinine 1.22 H, Estim Creat Clear Calc 45.33, Est GFR (MDRD) Af Amer 58 L, Est GFR (MDRD) Non-Af 48 L, BUN/Creatinine Ratio 32.0 H, Glucose 110 H, Calcium 9.9, Troponin I High Sens < 3 L 04/15/22 00:49: B-Natriuretic Peptide 42.9 04/15/22 00:49: PT 12.7, INR 1.0, APTT 32.8 04/15/22 01:03: Lactic Acid 0.9 04/15/22 01:40: Urine Color Yellow, Urine Clarity Clear, Urine pH 5.0, Ur Specific [place] 1.020, Urine Protein Negative, Urine Glucose (UA) Normal, Urine Ketones Negative, Urine Occult Blood 10 H, Urine Nitrite Negative, Urine Bilirubin Negative, Urine Urobilinogen Normal, Ur Leukocyte Esterase Negative, Urine RBC 0-5 SEEN, Urine WBC 0 SEEN, Ur Squamous Epith Cells 0-5 SEEN, Urine Bacteria RARE, Hyaline Casts 0-5 SEEN, Urine Mucus 0 SEEN 04/15/22 05:43: WBC 6.6, RBC 4.54, Hgb 12.4, Hct 39.7, MCV 87.4, MCH 27.3, MCHC 31.2 L, RDW Std Deviation 50.5 H, RDW Coeff of [place] 15.8 H, Plt Count 194, MPV 11.0, Immature Gran % (Auto) 0.500, Neut % (Auto) 90.8 H, Lymph % (Auto) 4.3 L, [place] % (Auto) 3.5, Eos % (Auto) 0.3, Baso % (Auto) 0.6, Absolute Neuts (auto) 6.0, Absolute Lymphs (auto) 0.28 L, Nucleated RBC % 0, Plt Morphology Comment CLUMPED, Anisocytosis 1+ 04/15/22 05:43: Sodium 140, Potassium 4.4, Chloride 107, Carbon Dioxide 27.0, Anion Gap 6, BUN 33 H, Creatinine 1.00, Estim Creat Clear Calc 55.31, Est GFR (MDRD) Af Amer 73, Est GFR (MDRD) Non-Af 60, BUN/Creatinine Ratio 33.1 H, Glucose 118 H, Calcium 9.0 Micro: Microbiology 04/15/22 02:04 Nasal Secretion SARS-CoV-2 & FLU Antigen (Rapid) - Final ABG Data ABG results: ABG 04/15/22 04/15/22 02:15 04:22 Specimen Type ART ART Sample Site R Radial R Radial pH 7.23 L 7.28 L Bicarbonate Actual 32.0 H 31.6 H Total CO2 34 34 Base Excess 4 H 5 H O2 Saturation 87 L 90 L O2 % 40 ABG pCO2 76.9 H* 67.2 H* ABG pO2 66 L 68 L Fran Test Positive Positive Respiration Rate 14 O2 Delivery Device Cannula BiPAP Liter Flow 4.0 Tidal Volume 500 Crit Call To/Read Back Yes Yes Blood Gas Notified Whom Wai Wai Clinical Comments Radiography Diagnostic Testing: Radiology Impression Chest X-Ray 04/15/22 00:46 IMPRESSION: 1. Mild cardiomegaly. 2. No evidence for acute cardiopulmonary pathology. Electronically Signed: Eduardo Carmona MD at 2:18 EDT Reading Location ID and State: [facility] / [place] , Service support , Rhythm Strip Rhythm Strip: Sinus Rhythm Rate: 95 Ectopy: None Physical Exam Narrative GENERAL: Patient on BiPAP HEENT: Atraumatic; normocephalic EYES; Anicteric, Normal Conjunctiva NECK; supple, normal thyroid, RESPIRATORY: Diminished to auscultation CARDIOVASCULAR: Regular S1 S2, GI: soft, normoactive bowel sounds, : No Renal angle tenderness; EXTREMITIES: No edema, no clubbing, MUSCULOSKELETAL: no muscle wasting NEURO: Awake; no lateralizing signs. SKIN: No Rash PSYCH; Flat affect Assessment & Plan Assessment/Plan (1) Acute respiratory failure with hypoxia and hypercapnia: (2) Acute exacerbation of chronic obstructive pulmonary disease: (3) Hypertension: QUALIFIERS: Hypertension type: primary hypertension Qualified Code(s): I10 - Essential (primary) hypertension (4) Chronic back pain: (5) Hyperlipidemia: (6) Smoking greater than 40 pack years: PLAN: Plan Patient is a 61-year-old lady admitted with progressive shortness of breath. An assessment of COPD with acute exacerbation made admitted to monitored bed for subsequent management 1. Acute hypoxic respiratory failure ? Secondary to COPD with acute exacerbation patient was managed on noninvasive ventilation BiPAP subsequently admitted to a monitored bed. Patient was treated with systemic steroid, bronchodilator treatment as well as antibiotics. Patient progressed being monitored with continuous pulse oximetry 2. Dyslipidemia -Patient is on statin therapy, continued at home dose 3. Hypertension - Blood pressure controlled, home medications continued with dose adjustment as needed 4. Class I obesity with BMI of 34.6 ? Weight loss advised 5. Chronic back pain ? Did continue patient home meds 6. Seizure disorder ? Patient is on Keppra did continue 7. GERD ? On PPI 8. Tobacco dependence - Counseled on cessation, offered nicotine patch for tobacco cravings 9. Depression with anxiety ? Did continue home meds 10. DVT prophylaxis ? On enoxaparin Total time spent evaluating patient review of labs adjustment of therapy and subsequent review; 45-minute Charges/Coding Procedures Hospitalists Procedures: [id number] Prolonged InPt Service; first hour
[2022-04-15] MEDS: Enoxaparin 40 MG/0.4 ML Syringe SC (10:09)
--- NOTE | 2022-04-15 11:01 | CASEMGMT ---
RN CM assessment deferred at this time as pt still on continuous bipap and very drowsy. Pt unable to take meds or come off bipap. CM to follow. SStaten AILIN GRAVES
--- NOTE | 2022-04-15 11:38 | CON.PCM.CC_ITS ---
Assessment & Plan Assessment/Plan (1) Acute respiratory failure with hypoxia and hypercapnia: PLAN: Plan RECOMMENDATIONS: 1. Okay to wean from AVAPS therapy to nasal cannula oxygen. 2. Maintain oxygen saturations 88 to 92%. 3. Continue scheduled bronchodilators and IV steroids. 4. Check respiratory viral panel. 5. PAP therapy should be utilized, at a minimum, with naps and nightly. 6. If the patient were not to continue to improve clinically, CTA chest should be obtained. 7. Ultimately, the patient should follow-up in the pulmonary medicine clinic after discharge so that baseline PFTs can be obtained. IMPRESSIONS: 1. Acute combined respiratory failure The patient presented to the hospital with shortness of breath and a presumptive history of COPD of unknown severity. She is not currently on any maintenance medications at her baseline, nor does she utilize supplemental oxygen. Chest imaging did not reveal an acute cardiopulmonary process. The patient has been managed with AVAPS therapy, scheduled bronchodilators and IV steroids. She does report interval symptom improvement since her admission. At this time, I recommend that we obtain a respiratory viral panel. If the patient were not to continue to improve clinically, a CTA chest would be indicated to rule out pulmonary embolism. Ultimately, the patient should establish care with a vaudeville actor on an outpatient basis so that baseline PFTs, walk test and sleep study can be completed. 2. Chronic tobacco dependency I personally spent 4 minutes discussing the deleterious effects of continued tobacco use with the patient, including modalities which could be utilized to achieve a smoke-free lifestyle. Nicotine replacement therapy can be offered to the patient while admitted to the hospital. 3. Chronic pain syndrome/obesity/hypertension/unspecified seizure disorder/GERD/depression/anxiety Complicates care, management, recovery and prognosis. Continue home medications as indicated. This note was generated with Modlaration software. It may contain incorrect words, spelling, and punctuation that were not noted in checking the note before signing. HPI Consult Data Date of Consult: 04/16/22 HPI Narrative Reason for Consultation: Acute respiratory failure HPI Narrative: The patient is a 61-year-old female, with a history as outlined below, who presented to the emergency department on April 15 with worsening shortness of breath. The patient has previous documentation of recurrent seizures due to medication noncompliance and associated aspiration pneumonia. The patient reported that she has a history of COPD of unknown severity. She does not currently follow with a vaudeville actor. She does report that she currently is prescribed albuterol on an as-needed basis in her home environment, but does not routinely utilize the medication. She also reports that she does not utilize s upplemental oxygen at her baseline. She denied a history of venous thromboembolic disease. On presentation to the emergency department, the patient was noted to be afebrile and hemodynamically stable. Initial laboratory evaluation revealed no evidence of leukocytosis. Coagulation profile was within normal limits. Chemistry profile was notable for a creatinine of 1.2. Lactate was within debbi l limits. Urine analysis was unrevealing. Arterial blood gas demonstrated a pH of 7.28 with a PCO2 of 67 and PO2 of 68. Chest x-ray demonstrated no acute cardiopulmonary process. The patient was ultimately placed on PAP therapy along with scheduled bronchodilators and IV steroids. She was admitted to the progressive care unit for further management. [facility] Medical History Acute conjunctivitis of both eyes Acute conjunctivitis, right eye Arthritis Asthma Breast cancer screening Bruising Chronic kidney disease Chronic pain Colon cancer screening COPD (chronic obstructive pulmonary disease) Cough Depression Depression Dietary restriction Edema of eyelid of both eyes Epilepsy Flu vaccine need GI bleed High cholesterol History of edema History of pain when walking History of ulceration Hypertension Leg cramps Lower extremity edema Neuropathy right ankle surgery Seasonal allergies Seizures Shortness of breath Smoker Sore throat Sprain of cervical neck Stasis dermatitis Tobacco abuse Venous insufficiency of both lower extremities Vitamin D deficiency Walker as ambulation aid Wears glasses Wears partial dentures Home Medications buprenorphine 15 mcg/hour weekly transdermal patch 15 mcg topical QWEEK PAIN 05/23/20 [History Last Taken 02/24/21] Handicap Placard #1 ea 08/13/20 [Rx Last Taken 02/24/21] pregabalin 75 mg capsule 75 mg PO TID 10/05/20 [History Last Taken 02/24/21] walker #1 ea 10/05/20 [Rx Last Taken 02/24/21] comp.stocking,thigh,long,x-lrg #4 ea 01/29/21 [Rx Last Taken 02/24/21] albuterol sulfate 90 mcg/actuation aerosol inhaler 2 puff inhalation Q6H PRN shortness of breath or wheezing #8.5 grams 04/11/21 [Rx Last Taken Unknown] baclofen 20 mg tablet 10 mg PO TID PRN Spasms #30 tabs 04/11/21 [Rx Last Taken Unknown] escitalopram oxalate 20 mg tablet 20 mg PO DAILY DEPRESSION #90 tabs 04/11/21 [Rx Last Taken Unknown] fluticasone propionate 50 mcg/actuation nasal spray,suspension (Flonase Allergy Relief) 2 spray intranasal DAILY PRN allergy symptoms #15.8 mL 09/03/21 [Rx Last Taken Unknown] lisinopril 20 mg-hydrochlorothiazide 25 mg tablet 1 tab PO DAILY BP #90 tabs 11/01/21 [Rx Last Taken Unknown] mirtazapine 15 mg disintegrating tablet 15 mg PO QHS DEPRESSION #90 tabs 11/25/21 [Rx Last Taken Unknown] levetiracetam 750 mg tablet 750 mg PO BID #180 tabs 11/26/21 [Rx Last Taken Unknown] buspirone 5 mg tablet 5 mg PO TID DEPRESSION #270 tabs 02/17/22 [Rx Last Taken Unknown] omeprazole 40 mg capsule,delayed release 40 mg PO DAILY GERD #90 caps 02/26/22 [Rx Last Taken Unknown] cetirizine 10 mg tablet (Zyrtec) 10 mg PO DAILY PRN Congestion #90 tabs 03/12/22 [Rx Last Taken Unknown] fenofibrate nanocrystallized 48 mg tablet 48 mg PO DAILY CHOLESTEROL #90 tabs 04/11/22 [Rx Last Taken Unknown] aripiprazole 5 mg tablet 5 mg PO BID DEPRESSION #180 tabs 04/14/22 [Rx Last Taken Unknown] Allergy/AdvReac Type Severity Reaction Status Date / Time aspirin AdvReac Severe Upset Verified 03/12/22 15:34 Stomach Penicillins AdvReac Severe vomiting Verified 03/12/22 15:34 Family History Mother Breast cancer Hypertension Hyperlipemia Cancer melanoma, lyphoma ulcers Father Diabetes Myocardial infarction, Onset Age: 67 Hypertension Depression Sister Depression Hyperlipemia Surgical History H/O: hysterectomy History of ankle surgery History of back surgery Social History household members: friend(s) Smoking Status: Current every day smoker tobacco type: cigarettes Tobacco: How many years used: 25 second hand exposure: No alcohol intake: never substance use type: does not use what type of physical activity do you participate in: walking frequency: 3-4 times per week dari/jainism: Spiritism seatbelt use: sometimes ROS Constitutional Constitutional: Denies chills, fatigue or fever(s) Eyes Eyes: Denies blurry vision or change in vision ENT HEENT: Denies dizziness, epistaxis, headache(s) or hoarseness Cardiovascular Cardiovascular: Reports dyspnea; Denies chest pain Respiratory/Chest Respiratory/Chest: Reports cough, dyspnea and wheezing Gastrointestinal Gastrointestinal: Denies abdominal pain, diarrhea, nausea or vomiting Genitourinary Genitourinary: Denies difficulty urinating Musculoskeletal Musculoskeletal: Reports back pain Integumentary Integumentary: Denies lesions, rash or skin ulcer Neurologic Neurologic: Denies abnormal gait Psychiatric Psychiatric: Reports anxiety and depression Endocrine Endocrinology: Denies fatigue Hematologic/Lymphatic Hematologic/Lymphatic: Denies easy bleeding or easy bruising Physical Exam Const alert and no apparent distress General Appearance: on BiPAP Nutritional Appearance: obese HEENT normocephalic and head/scalp atraumatic HEENT Narrative: Dry mucous membranes Eyes PERRL, EOMs intact bilaterally and conjunctivae normal Neck supple General: trachea midline Chest inspection of chest normal Resp normal respiratory effort Auscultation: wheezes and diminished lung sounds; Negative for rales or rhonchi Cardio regular rate and regular rhythm GI normal to inspection, nondistended, normoactive bowel sounds Extremity no clubbing, cyanosis or edema Skin no rashes or lesions noted Neuro CN's II-XII intact bilaterally and no focal motor deficits Psych cooperative and affect normal Lab / Micro Data Result Diagrams: 04/15/22 05:43 04/15/22 05:43 Labs: Laboratory Results - last 24 hr 04/15/22 00:49: WBC 8.1, RBC 5.12, Hgb 13.5, Hct 45.2, MCV 88.3, MCH 26.4 L, MCHC 29.9 L, RDW Std Deviation 50.8 H, RDW Coeff of Dyana 15.8 H, Plt Count 255, MPV 10.1, Immature Gran % (Auto) 0.500, Neut % (Auto) 77.6 H, Lymph % (Auto) 14.7 L, [place] % (Auto) 5.3, Eos % (Auto) 1.5, Baso % (Auto) 0.4, Absolute Neuts (auto) 6.3, Absolute Lymphs (auto) 1.20, Nucleated RBC % 0 04/15/22 00:49: Sodium 140, Potassium 4.8, Chloride 104, Carbon Dioxide 32.0, Anion Gap 4 L, BUN 39 H, Creatinine 1.22 H, Estim Creat Clear Calc 45.33, Est GFR (MDRD) Af Amer 58 L, Est GFR (MDRD) Non-Af 48 L, BUN/Creatinine Ratio 32.0 H , Glucose 110 H, Calcium 9.9, Troponin I High Sens < 3 L 04/15/22 00:49: B-Natriuretic Peptide 42.9 04/15/22 00:49: PT 12.7, INR 1.0, APTT 32.8 04/15/22 01:03: Lactic Acid 0.9 04/15/22 01:40: Urine Color Yellow, Urine Clarity Clear, Urine pH 5.0, Ur Specific [place] 1.020, Urine Protein Negative, Urine Glucose (UA) Normal, Urine Ketones Negative, Urine Occult Blood 10 H, Urine Nitrite Negative, Urine Bilirubin Negative, Urine Urobilinogen Normal, Ur Leukocyte Esterase Negative, Urine RBC 0-5 SEEN, Urine WBC 0 SEEN, Ur Squamous Epith Cells 0-5 SEEN, Urine Bacteria RARE, Hyaline Casts 0-5 SEEN, Urine Mucus 0 SEEN 04/15/22 05:43: WBC 6.6, RBC 4.54, Hgb 12.4, Hct 39.7, MCV 87.4, MCH 27.3, MCHC 31.2 L, RDW Std Deviation 50.5 H, RDW Coeff of [place] 15.8 H, Plt Count 194, MPV 11.0, Immature Gran % (Auto) 0.500, Neut % (Auto) 90.8 H, Lymph % (Auto) 4.3 L, [place] % (Auto) 3.5, Eos % (Auto) 0.3, Baso % (Auto) 0.6, Absolute Neuts (auto) 6.0, Absolute Lymphs (auto) 0.28 L, Nucleated RBC % 0, Plt Morphology Comment CLUMPED, Anisocytosis 1+ 04/15/22 05:43: Sodium 140, Potassium 4.4, Chloride 107, Carbon Dioxide 27.0, Anion Gap 6, BUN 33 H, Creatinine 1.00, Estim Creat Clear Calc 55.31, Est GFR (MDRD) Af Amer 73, Est GFR (MDRD) Non-Af 60, BUN/Creatinine Ratio 33.1 H, Glucose 118 H, Calcium 9.0 Micro: Microbiology 04/15/22 02:04 Nasal Secretion SARS-CoV-2 & FLU Antigen (Rapid) - Final ABG Data ABG results: ABG 04/15/22 04/15/22 02:15 04:22 Specimen Type ART ART Sample Site R Radial R Radial pH 7.23 L 7.28 L Bicarbonate Actual 32.0 H 31.6 H Total CO2 34 34 Base Excess 4 H 5 H O2 Saturation 87 L 90 L O2 % 40 ABG pCO2 76.9 H* 67.2 H* ABG pO2 66 L 68 L Fran Test Positive Positive Respiration Rate 14 O2 Delivery Device Cannula BiPAP Liter Flow 4.0 Tidal Volume 500 Crit Call To/Read Back Yes Yes Blood Gas Notified Whom Wai Wai Clinical Comments Rhythm Strip Rhythm Strip: Sinus Rhythm Rate: 95 Ectopy: None Radiology Impression Chest X-Ray 04/15/22 00:46 IMPRESSION: 1. Mild cardiomegaly. 2. No evidence for acute cardiopulmonary pathology. Electronically Signed: Eduardo Carmona MD at 2:18 EDT Reading Location ID and State: [facility] / [place] , Service support , Charges/Coding Visit Charges Inpatient E&M: 81859 Init Hosp L3 Behavior Interventions Behavior Intervention: 39014 Smoking Cessation 3-10 min
[2022-04-15 12:16] LABS: Allen Test Positive; Base Excess 7 mmol/L (-2 to +2); Bicarbonate 32.4 mmol/L (22-26); Blood Gas Specimen Type ART; FI02 50; Mode BiLevel; O2 Delivery Device BiPAP; PEEP 8; PO2 67 mmHG (75-100); RR 14; SITE R Radial; SO2 91 % (95-99); Total Carbon Dioxide 34 mmol/L; Vt 500; pH 7.35 (7.35-7.45)
[2022-04-15] MEDS: Pregabalin 75 MG Capsule PO ×2 (13:58→22:41)
[2022-04-15] MEDS: busPIRone 5 MG Tablet PO ×2 (13:58→22:37)
[2022-04-15] MEDS: FLU VACC QS2022-23(6MOS UP)/PF 60 MCG/0.5 ML SYRINGE IM (14:10)
[2022-04-15] MEDS: 0.9% Saline Lock 10 ML Syringe IV (22:36)
[2022-04-15] MEDS: ARIPiprazole 5 MG Tablet PO (22:37)
[2022-04-15] MEDS: levETIRAcetam 750 MG Tablet PO (22:37)
[2022-04-15] MEDS: Mirtazapine 15 MG Tablet PO (22:38)
[2022-04-16] VITALS (20 sets, daily range): BP systolic 110–137; BP diastolic 58–79; PULSE 62–89; RESP 16–20; TEMP 36.5–37.2; O2SAT 90–95
[2022-04-16] MEDS: Baclofen 10 MG Tablet PO ×2 (04:43→13:29)
[2022-04-16] MEDS: busPIRone 5 MG Tablet PO ×3 (06:04→21:00)
[2022-04-16] MEDS: Pregabalin 75 MG Capsule PO ×3 (06:04→21:00)
[2022-04-16] MEDS: 0.9% Saline Lock 10 ML Syringe IV ×3 (06:05→20:58)
[2022-04-16] MEDS: Ipratropium/Albuterol Sulfate 3 ML AMPUL.NEB INHALATION ×4 (07:14→19:59)
--- NOTE | 2022-04-16 07:44 | PCM.PN.HOSP ---
Subjective Subjective Patient seen has been weaned off BiPAP however remains dyspneic at rest Objective Data Objective Data Vital Signs: Vital Signs Temp Pulse Resp BP Pulse Ox O2 Del Method O2 Flow Rate 98.0 F 80 18 110/59 L 93 Nasal Cannula 4 04/16/22 05:00 04/16/22 05:00 04/16/22 05:00 04/16/22 05:00 04/16/22 05:00 04/16/22 05:00 04/16/22 05:00 FiO2 50 04/15/22 13:00 Oxygen Flow Rate (L/min) 4 Oxygen Delivery Method Nasal Cannula Weight: 97.3 kg Body Mass Index (BMI) 34.6 Intake & Output: Intake and Output for Last 24 Hours 04/14/22 04/15/22 04/16/22 23:59 23:59 23:59 Intake Total 587.5 / 707.5 240 / 240 Balance 587.5 / 707.5 240 / 240 Lab / Micro Data Result Diagrams: 04/15/22 05:43 04/15/22 05:43 Micro: Microbiology 04/15/22 12:06 Mucosa - Nasopharyngeal Respiratory Panel (PCR) - Final Rhinovirus 04/15/22 02:04 Nasal Secretion SARS-CoV-2 & FLU Antigen (Rapid) - Final ABG Data ABG results: ABG 04/15/22 12:12 Specimen Type ART Sample Site R Radial pH 7.35 Bicarbonate Actual 32.4 H Total CO2 34 Base Excess 7 H O2 Saturation 91 L O2 % 50 ABG pCO2 59.0 H ABG pO2 67 L Fran Test Positive Respiration Rate 14 O2 Delivery Device BiPAP Vent Mode BiLevel Tidal Volume 500 POC PEEP 8 Clinical Comments 14 500 26/18 +8 Rhythm Strip Rhythm Strip: Sinus Rhythm Rate: 95 Ectopy: None Physical Exam Narrative GENERAL: Patient on BiPAP HEENT: Atraumatic; normocephalic EYES; Anicteric, Normal Conjunctiva NECK; supple, normal thyroid, RESPIRATORY: Diminished to auscultation CARDIOVASCULAR: Regular S1 S2, GI: soft, normoactive bowel sounds, : No Renal angle tenderness; EXTREMITIES: No edema, no clubbing, MUSCULOSKELETAL: no muscle wasting NEURO: Awake; no lateralizing signs. SKIN: No Rash PSYCH; Flat affect Assessment & Plan Assessment/Plan (1) Acute respiratory failure with hypoxia and hypercapnia: (2) Acute exacerbation of chronic obstructive pulmonary disease: (3) Hypertension: QUALIFIERS: Hypertension type: primary hypertension Qualified Code(s): I10 - Essential (primary) hypertension (4) Chronic back pain: (5) Hyperlipidemia: (6) Smoking greater than 40 pack years: PLAN: Plan Patient is a 61-year-old lady admitted with progressive shortness of breath. An assessment of COPD with acute exacerbation made admitted to monitored bed for subsequent management 1. Acute hypoxic respiratory failure ? Secondary to COPD with acute exacerbation patient was managed on noninvasive ventilation BiPAP subsequently admitted to a monitored bed. Patient was treated with systemic steroid, bronchodilator treatment as well as antibiotics. Patient progressed being monitored with continuous pulse oximetry -04/16/2022 Patient seen has been weaned off BiPAP however remains dyspneic at rest. Patient was seen in consultation by Dr Lerma with pulmonary medicine is noted recommendations reviewed 2. Dyslipidemia -Patient is on statin therapy, continued at home dose 3. Hypertension - Blood pressure controlled, home medications continued with dose adjustment as needed 4. Class I obesity with BMI of 34.6 ? Weight loss advised 5. Chronic back pain ? Did continue patient home meds 6. Seizure disorder ? Patient is on Keppra did continue 7. GERD ? On PPI 8. Tobacco dependence - Counseled on cessation, offered nicotine patch for tobacco cravings 9. Depression with anxiety ? Did continue home meds 10. DVT prophylaxis ? On enoxaparin Charges/Coding Visit Charges Inpatient E&M: 95433 Subs Hosp L2
[2022-04-16] MEDS: Pantoprazole Sodium 40 MG Tablet PO (09:19)
[2022-04-16] MEDS: levETIRAcetam 750 MG Tablet PO ×2 (09:20→21:00)
[2022-04-16] MEDS: Enoxaparin 40 MG/0.4 ML Syringe SC (09:20)
[2022-04-16] MEDS: hydroCHLOROthiazide 25 MG Tablet PO (09:20)
[2022-04-16] MEDS: Escitalopram Oxalate 20 MG Tablet PO (09:20)
[2022-04-16] MEDS: Lisinopril 20 MG Tablet PO (09:20)
[2022-04-16] MEDS: ARIPiprazole 5 MG Tablet PO ×2 (09:21→21:00)
[2022-04-16] MEDS: Fenofibrate 48 MG Tablet PO (09:21)
--- NOTE | 2022-04-16 10:05 | CASEMGMT ---
AILIN GRAVES assessment: Face to Face with patient for initial transition planning/care coordination assessment. AILIN GRAVES introduced self and role at [facility], pt voices understanding and consents to assessment. Pt is sitting up in chair in no distress on 3L nc. Pt is A/Ox4 and answers all questions appropriately. Care providers, pharmacy,?and demographics verified. ? Presentation: Pt c/o SOB/cough/congestion since yesterday, states unable to go to PCP appt, hypoxic for EMS Admitting dx: COPD exac, acute resp failure PCP: Rosalia Specialists: Nargis, neuro; Franck, ANDREW Preferred Pharmacy: [facility] Insurance: [facility] Prescription Benefit:?[facility] Living Will/HPOA: Pt states does not have LW/HPOA but would like to complete. Mela blank, voices understanding. LNOK: Amelia Green, sister Living Arrangements: Pt lives alone in halfway apt with elevator, no stairs and states no concerns at home. Pt is independent with ADL's. Transportation: Pt drives self and states no transportation concerns. DME/HHC: Pt has the following DME: cane, rollator, shower chair, grab bars and call lights. Pt states does not have a pulse ox but would like one and pt to be provided with [facility] pulse ox for discharge. Pt states no need for any further DME. Pt states has had HHC thru [facility] in past and has gone to [place] in past. Pt states would be interested in OP therapy at [facility] at discharge. Pt states no preference for DME company, if qualifies for home oxygen at discharge. Pt states no concerns with going home at time of discharge. Pt is disabled. Pt smokes pack cigarettes daily but does not drink ETOH. Pt voices no further concerns/needs. CM to follow for home oxygen, therapy notes, and any further discharge planning/needs. Advised pt to ask for CM if any further questions/concerns/needs arise, voices understanding. Pt Goal: Home ? Plan: Home, pending therapy evals and home oxygen testing. SStaten AILIN GRAVES
--- NOTE | 2022-04-16 12:31 | PN.CC_ITS ---
Assessment & Plan Assessment/Plan (1) Acute respiratory failure with hypoxia and hypercapnia: PLAN: Plan RECOMMENDATIONS: 1. Continue AVAPS therapy with naps and nightly. 2. Maintain oxygen saturations 88 to 92%. 3. Continue scheduled bronchodilators and IV steroids. 4. Ultimately, the patient should follow-up in the pulmonary medicine clinic after discharge so that baseline PFTs can be obtained. IMPRESSIONS: 1. Acute combined respiratory failure, likely secondary to COPD with exacerbation secondary to rhinovirus URI The patient presented to the hospital with shortness of breath and a presumptive history of COPD of unknown severity. She is not currently on any maintenance medications at her baseline, nor does she utilize supplemental oxygen. Chest imaging did not reveal an acute cardiopulmonary process. The patient has been managed with AVAPS therapy, scheduled bronchodilators and IV steroids. Rec ommend continuing AVAPS therapy with naps and nightly. Wean supplemental oxygen to maintain saturations 88 to 92%. Ultimately, the patient should establish care with a educational therapy teacher on an outpatient basis so that baseline PFTs, walk test and sleep study can be completed. 2. Chronic tobacco dependency Tobacco cessation counseling was provided. Nicotine replacement therapy can be offered to the patient while admitted to the hospital. 3. Chronic pain syndrome/obesity/hypertension/unspecified seizure disorder/GERD/depression/anxiety Complicates care, management, recovery and prognosis. Continue home medications as indicated. This note was generated with [employer] dictation software. It may contain incorrect words, spelling, and punctuation that were not noted in checking the note before signing. Subjective Subjective The patient was seen and examined at the bedside this morning. Events from the last 24 hours have been reviewed. The patient is currently afebrile, hemodynamically stable and maintaining appropriate oxygen saturations on 4 L/min via nasal cannula. The patient remains on scheduled bronchodilators and IV steroids, with slowly improving respiratory status. Objective Data Objective Data The patient's most recent lab work, culture data and imaging studies have all been personally reviewed. Respiratory viral panel was positive for rhinovirus. Blood cultures have demonstrated no growth to date. Vital Signs: Vital Signs Temp Pulse Resp BP Pulse Ox O2 Del Method O2 Flow Rate 97.7 F L 89 18 130/79 H 93 Nasal Cannula 4 04/16/22 09:29 04/16/22 11:20 04/16/22 11:20 04/16/22 09:29 04/16/22 09:29 04/16/22 09:29 04/16/22 09:29 FiO2 50 04/15/22 13:00 Oxygen Flow Rate (L/min) 4 Oxygen Delivery Method Nasal Cannula Weight: 214 lb 8.156 oz Body Mass Index (BMI) 34.6 Intake & Output: Intake and Output for Last 24 Hours 04/14/22 04/15/22 04/16/22 23:59 23:59 23:59 Intake Total 587.5 / 707.5 240 / 240 Balance 587.5 / 707.5 240 / 240 Lab / Micro Data Attestation: I reviewed the patient's lab results. Result Diagrams: 04/15/22 05:43 04/15/22 05:43 Micro: Microbiology 04/15/22 01:40 Urine Catheter - Catheter Urine Culture - Preliminary Culture exhibits no growth. 04/15/22 12:06 Mucosa - Nasopharyngeal Respiratory Panel (PCR) - Final Rhinovirus 04/15/22 02:04 Nasal Secretion SARS-CoV-2 & FLU Antigen (Rapid) - Final Rhythm Strip Rhythm Strip: Sinus Rhythm Rate: 95 Ectopy: None Physical Exam Const alert and no apparent distress Nutritional Appearance: obese HEENT normocephalic and head/scalp atraumatic HEENT Narrative: Dry mucous membranes Eyes PERRL, EOMs intact bilaterally and conjunctivae normal Neck supple General: trachea midline Chest inspection of chest normal Resp normal respiratory effort Auscultation: diminished lung sounds; Negative for rales, rhonchi or wheezes Cardio regular rate and regular rhythm GI normal to inspection, nondistended, normoactive bowel sounds Extremity no clubbing, cyanosis or edema Skin no rashes or lesions noted Neuro CN's II-XII intact bilaterally and no focal motor deficits Psych cooperative and affect normal Charges/Coding Visit Charges Inpatient E&M: 42995 Subs Hosp L2
--- NOTE | 2022-04-16 14:00 | CASEMGMT ---
SW was informed patient was interested in completing Healthcare Power of [employer] and a Healthcare Living Will. SW met with patient and completed Healthcare Power of [employer] and Healthcare Living Will. Copies were made and given to patient along with originals. SW also placed a copy in patient's chart. Patient named her sister Amelia Green as her Healthcare Power of [employer]. Patience Kim FIRE LOOKOUT HEATHER
--- NOTE | 2022-04-16 14:06 | CHAPLAIN ---
Type of Pastoral Visit __x_ Initial Visit ___ Follow-up Visit ___ On-call Visit ___ General Patient Visit ___ Spiritual Assessment ___ Family Conference ___ Bereavement ___ Rapid Response ___ Code Blue ___ Other (describe below) Pastoral Care Referral From _x__ Patient ___ Family ___ Nurse ___ Physician ___ Trucksmith ___ Toll Ticket Clerk ___ Other (describe below) Sacrament/Intervention _x__ Active listening ___ Anointing ___ Sabianism ___ Bereavement ___ Communion _x__ Monika exploration ___ ___ Life review _x__ Prayer ___ Reconciliation ___ Sacrament of Sick _x__ Supportive presence ___ Wedding ___ Other (describe below) Pastoral Comments patient gives update about her health and reason for admission; pt has been in hospital before and seen by this show horse driver; pt would like for prayer to be given; pt has a goal of getting back to caodaism in her town of [place]; team came into room at this time for a group meeting and so visit ended
[2022-04-16] MEDS: Mirtazapine 15 MG Tablet PO (21:00)
[2022-04-16] MEDS: Fluticasone 0.05% 1 SPRAY NASAL.SRY 2 SPRAY NASAL (21:03)
[2022-04-16] MEDS: Loratadine 10 MG Tablet PO (21:03)
[2022-04-17] VITALS (21 sets, daily range): BP systolic 124–150; BP diastolic 67–76; PULSE 59–82; RESP 16–24; TEMP 36.4–36.7; O2SAT 90–95
[2022-04-17] MEDS: Baclofen 10 MG Tablet PO ×4 (00:23→23:10)
[2022-04-17] MEDS: 0.9% Saline Lock 10 ML Syringe IV (05:13)
[2022-04-17] MEDS: Pregabalin 75 MG Capsule PO ×3 (05:13→21:22)
[2022-04-17] MEDS: busPIRone 5 MG Tablet PO ×3 (05:13→21:22)
[2022-04-17] MEDS: Ipratropium/Albuterol Sulfate 3 ML AMPUL.NEB INHALATION ×5 (06:50→23:16)
--- NOTE | 2022-04-17 07:59 | PCM.PN.HOSP ---
Subjective Subjective Patient seen still remains on supplemental oxygen currently on 4L/min with oxygen saturation in the mid 90s. Plan is to continue to wean down patient oxygen via nasal cannula. Objective Data Objective Data Vital Signs: Vital Signs Temp Pulse Resp BP Pulse Ox O2 Del Method O2 Flow Rate 97.7 F L 61 16 124/69 H 90 Nasal Cannula 4 04/17/22 05:00 04/17/22 06:59 04/17/22 06:50 04/17/22 05:00 04/17/22 06:50 04/17/22 06:50 04/17/22 06:50 FiO2 50 04/17/22 05:00 Oxygen Flow Rate (L/min) 4 Oxygen Delivery Method Nasal Cannula Weight: 97.3 kg Body Mass Index (BMI) 34.6 Intake & Output: Intake and Output for Last 24 Hours 04/15/22 04/16/22 04/17/22 23:59 23:59 23:59 Intake Total 587.5 / 707.5 684 / 784 100 / 100 Balance 587.5 / 707.5 684 / 784 100 / 100 Lab / Micro Data Result Diagrams: 04/15/22 05:43 04/15/22 05:43 Micro: Microbiology 04/15/22 01:40 Urine Catheter - Catheter Urine Culture - Final Culture exhibits no growth. 04/15/22 12:06 Mucosa - Nasopharyngeal Respiratory Panel (PCR) - Final Rhinovirus 04/15/22 02:04 Nasal Secretion SARS-CoV-2 & FLU Antigen (Rapid) - Final Rhythm Strip Rhythm Strip: Sinus Rhythm Rate: 95 Ectopy: None Physical Exam Narrative GENERAL: Cooperative but remains dyspneic at rest HEENT: Atraumatic; normocephalic EYES; Anicteric, Normal Conjunctiva NECK; supple, normal thyroid, RESPIRATORY: Diminished to auscultation CARDIOVASCULAR: Regular S1 S2, GI: soft, normoactive bowel sounds, : No Renal angle tenderness; EXTREMITIES: No edema, no clubbing, MUSCULOSKELETAL: no muscle wasting NEURO: Awake; no lateralizing signs. SKIN: No Rash PSYCH; Flat affect Assessment & Plan Assessment/Plan (1) Acute respiratory failure with hypoxia and hypercapnia: (2) Acute exacerbation of chronic obstructive pulmonary disease: (3) Hypertension: QUALIFIERS: Hypertension type: primary hypertension Qualified Code(s): I10 - Essential (primary) hypertension (4) Chronic back pain: (5) Hyperlipidemia: (6) Smoking greater than 40 pack years: PLAN: Plan Patient is a 61-year-old lady admitted with progressive shortness of breath. An assessment of COPD with acute exacerbation made admitted to monitored bed for subsequent management 1. Acute hypoxic respiratory failure ? Secondary to COPD with acute exacerbation patient was managed on noninvasive ventilation BiPAP subsequently admitted to a monitored bed. Patient was treated with systemic steroid, bronchodilator treatment as well as antibiotics. Patient progressed being monitored with continuous pulse oximetry -04/16/2022 Patient seen has been weaned off BiPAP however remains dyspneic at rest. Patient was seen in consultation by Dr Lerma with pulmonary medicine is noted recommendations reviewed ? 04/17/2022;Patient seen still remains on supplemental oxygen currently on 4L/min with oxygen saturation in the mid 90s. Plan is to continue to wean down patient oxygen via nasal cannula. 2. Dyslipidemia -Patient is on statin therapy, continued at home dose 3. Hypertension - Blood pressure controlled, home medications continued with dose adjustment as needed 4. Class I obesity with BMI of 34.6 ? Weight loss advised 5. Chronic back pain ? Did continue patient home meds 6. Seizure disorder ? Patient is on Keppra did continue 7. GERD ? On PPI 8. Tobacco dependence - Counseled on cessation, offered nicotine patch for tobacco cravings 9. Depression with anxiety ? Did continue home meds 10. DVT prophylaxis ? On enoxaparin 11. Essential tremors ? Symptomatic treatment Charges/Coding Visit Charges Inpatient E&M: 39722 Subs Hosp L2
[2022-04-17] MEDS: Fenofibrate 48 MG Tablet PO (09:27)
[2022-04-17] MEDS: Pantoprazole Sodium 40 MG Tablet PO (09:27)
[2022-04-17] MEDS: hydroCHLOROthiazide 25 MG Tablet PO (09:27)
[2022-04-17] MEDS: Lisinopril 20 MG Tablet PO (09:27)
[2022-04-17] MEDS: Escitalopram Oxalate 20 MG Tablet PO (09:27)
[2022-04-17] MEDS: ARIPiprazole 5 MG Tablet PO ×2 (09:30→21:22)
[2022-04-17] MEDS: Enoxaparin 40 MG/0.4 ML Syringe SC (09:30)
[2022-04-17] MEDS: levETIRAcetam 750 MG Tablet PO ×2 (09:30→21:22)
--- NOTE | 2022-04-17 13:12 | CHAPLAIN ---
Type of Pastoral Visit ___ Initial Visit _x__ Follow-up Visit ___ On-call Visit ___ General Patient Visit ___ Spiritual Assessment ___ Family Conference ___ Bereavement ___ Rapid Response ___ Code Blue ___ Other (describe below) Pastoral Care Referral From __x_ Patient ___ Family ___ Nurse ___ Physician ___ Fiberglass Boat Finisher ___ Services Mgr ___ Other (describe below) Sacrament/Intervention _x__ Active listening ___ Anointing ___ Anabaptist ___ Bereavement ___ Communion ___ Monika exploration ___ ___ Life review _x__ Prayer ___ Reconciliation ___ Sacrament of Sick ___ Supportive presence ___ Wedding ___ Other (describe below) Pastoral Comments patient continues her story of health, her home situation, and her renewed interest in jew and spiritual matters; pt welcomes prayer; pt goal is to go home tomorrow
--- NOTE | 2022-04-17 13:44 | PCM.PN.INT ---
Assessment & Plan Assessment/Plan (1) Acute respiratory failure with hypoxia and hypercapnia: PLAN: Plan RECOMMENDATIONS: 1. Continue AVAPS therapy with naps and nightly. 2. Maintain oxygen saturations 88 to 92%. 3. Continue scheduled bronchodilators and IV steroids. 4. Ultimately, the patient should follow-up in the pulmonary medicine clinic after discharge so that baseline PFTs can be obtained. IMPRESSIONS: 1. Acute combined respiratory failure, likely secondary to COPD with exacerbation secondary to rhinovirus URI The patient presented to the hospital with shortness of breath and a presumptive history of COPD of unknown severity. She is not currently on any maintenance medications at her baseline, nor does she utilize supplemental oxygen. Chest imaging did not reveal an acute cardiopulmonary process. The patient has been managed with AVAPS therapy, scheduled bronchodilators and IV steroids. Recommend continuing AVAPS therapy with naps and nightly. Wean supplemental oxygen to maintain saturations 88 to 92%. Ultimately, the patient should establish care with a risk specialist on an outpatient basis so that baseline PFTs, walk test and sleep study can be completed. 2. Chronic tobacco dependency Tobacco cessation counseling was provided. Nicotine replacement therapy can be offered to the patient while admitted to the hospital. 3. Chronic pain syndrome/obesity/hypertension/unspecified seizure disorder/GERD/depression/anxiety Complicates care, management, recovery and prognosis. Continue home medications as indicated. This note was generated with [employer] dictation software. It may contain incorrect words, spelling, and punctuation that were not noted in checking the note before signing. Subjective Subjective The patient was seen and examined at the bedside this morning. Events from the last 24 hours have been reviewed. The patient is currently afebrile, hemodynamically stable and maintaining appropriate oxygen saturations on 3 L/min via nasal cannula. The patient does report enteral overall improvement in her respiratory status following admission to the hospital. Objective Data Objective Data The patient's most recent lab work, culture data and imaging studies have all been personally reviewed. Respiratory viral panel was positive for rhinovirus. Blood cultures have demonstrated no growth to date. Vital Signs: Vital Signs Temp Pulse Resp BP Pulse Ox O2 Del Method O2 Flow Rate 98.0 F 66 18 130/67 H 92 Nasal Cannula 3 04/17/22 09:34 04/17/22 11:02 04/17/22 11:02 04/17/22 09:34 04/17/22 11:36 04/17/22 09:35 04/17/22 11:36 FiO2 50 04/17/22 09:34 Oxygen Flow Rate (L/min) 3 Oxygen Delivery Method Nasal Cannula Weight: 214 lb 8.156 oz Body Mass Index (BMI) 34.6 Intake & Output: Intake and Output for Last 24 Hours 04/15/22 04/16/22 04/17/22 23:59 23:59 23:59 Intake Total 587.5 / 707.5 684 / 784 100 / 100 Balance 587.5 / 707.5 684 / 784 100 / 100 Lab / Micro Data Attestation: I reviewed the patient's lab results. Result Diagrams: 04/15/22 05:43 04/15/22 05:43 Micro: Microbiology 04/15/22 01:40 Urine Catheter - Catheter Urine Culture - Final Culture exhibits no growth. 04/15/22 12:06 Mucosa - Nasopharyngeal Respiratory Panel (PCR) - Final Rhinovirus 04/15/22 02:04 Nasal Secretion SARS-CoV-2 & FLU Antigen (Rapid) - Final Rhythm Strip Rhythm Strip: Sinus Rhythm Rate: 95 Ectopy: None Physical Exam Const alert and no apparent distress Constitutional Narrative: Sitting in bedside recliner. Nutritional Appearance: obese HEENT normocephalic and head/scalp atraumatic HEENT Narrative: Dry mucous membranes Eyes PERRL, EOMs intact bilaterally and conjunctivae normal Neck supple General: trachea midline Chest inspection of chest normal Resp normal respiratory effort Auscultation: diminished lung sounds; Negative for rales, rhonchi or wheezes Cardio regular rate and regular rhythm GI normal to inspection, nondistended, normoactive bowel sounds Extremity no clubbing, cyanosis or edema Skin no rashes or lesions noted Neuro CN's II-XII intact bilaterally and no focal motor deficits Psych cooperative and affect normal Charges/Coding Visit Charges Inpatient E&M: 20378 Subs Hosp L2
[2022-04-17] MEDS: BUPRENORPHINE 15 MCG/HR PATCH 1 EACH TD (14:12)
--- NOTE | 2022-04-17 14:31 | NURSING ---
HOME [employer] PATCH REMOVED- WASTED IN RX WASTE BIN- VERIFIED BY SUZAN ROSAS RN.
[2022-04-17] MEDS: Mirtazapine 15 MG Tablet PO (21:22)
[2022-04-18] VITALS (11 sets, daily range): BP systolic 127–154; BP diastolic 67–86; PULSE 58–72; RESP 16–18; TEMP 36.6–37.1; O2SAT 85–97
[2022-04-18] MEDS: busPIRone 5 MG Tablet PO ×2 (05:37→13:46)
[2022-04-18] MEDS: Pregabalin 75 MG Capsule PO ×2 (05:37→13:46)
[2022-04-18] MEDS: Baclofen 10 MG Tablet PO ×2 (05:37→13:46)
[2022-04-18] MEDS: Ipratropium/Albuterol Sulfate 3 ML AMPUL.NEB INHALATION ×3 (07:14→15:31)
[2022-04-18] MEDS: Fenofibrate 48 MG Tablet PO (08:18)
--- NOTE | 2022-04-18 08:22 | PCM.PN.INT ---
Assessment & Plan Assessment/Plan (1) Acute respiratory failure with hypoxia and hypercapnia: PLAN: Plan RECOMMENDATIONS: 1. Continue AVAPS therapy with naps and nightly. 2. Maintain oxygen saturations 88 to 92%. 3. Continue scheduled bronchodilators and IV steroids. 4. Ultimately, the patient should follow-up in the pulmonary medicine clinic after discharge so that baseline PFTs can be obtained. IMPRESSIONS: 1. Acute combined respiratory failure, likely secondary to COPD with exacerbation secondary to rhinovirus URI The patient presented to the hospital with shortness of breath and a presumptive history of COPD of unknown severity. She is not currently on any maintenance medications at her baseline, nor does she utilize supplemental oxygen. Chest imaging did not reveal an acute cardiopulmonary process. The patient has been managed with AVAPS therapy, scheduled bronchodilators and IV steroids. Recommend continuing AVAPS therapy with naps and nightly. Wean supplemental oxygen to maintain saturations 88 to 92%. Ultimately, the patient should establish care with a central office supervisor on an outpatient basis so that baseline PFTs, walk test and sleep study can be completed. 2. Chronic tobacco dependency Tobacco cessation counseling was provided. Nicotine replacement therapy can be offered to the patient while admitted to the hospital. 3. Chronic pain syndrome/obesity/hypertension/unspecified seizure disorder/GERD/depression/anxiety Complicates care, management, recovery and prognosis. Continue home medications as indicated. This note was generated with [employer] dictation software. It may contain incorrect words, spelling, and punctuation that were not noted in checking the note before signing. Subjective Subjective The patient was seen and examined at the bedside this morning. Events from the last 24 hours have been reviewed. The patient is currently afebrile, hemodynamically stable and maintaining appropriate oxygen saturations on 2 L/min via nasal cannula. Objective Data Objective Data The patient's most recent lab work, culture data and imaging studies have all been personally reviewed. Respiratory viral panel was positive for rhinovirus. Blood cultures have demonstrated no growth to date. Vital Signs: Vital Signs Temp Pulse Resp BP Pulse Ox O2 Del Method O2 Flow Rate 98.2 F 68 18 154/82 H 96 Nasal Cannula 2 04/18/22 08:03 04/18/22 08:03 04/18/22 08:03 04/18/22 08:03 04/18/22 08:03 04/18/22 08:10 04/18/22 08:10 FiO2 50 10/06/22 14:09 Oxygen Flow Rate (L/min) 2 Oxygen Delivery Method Nasal Cannula Weight: 214 lb 8.156 oz Body Mass Index (BMI) 34.6 Intake & Output: Intake and Output for Last 24 Hours 04/16/22 04/17/22 04/18/22 23:59 23:59 23:59 Intake Total 684 / 784 100 / 100 Balance 684 / 784 100 / 100 Lab / Micro Data Attestation: I reviewed the patient's lab results. Result Diagrams: 04/15/22 05:43 04/15/22 05:43 Micro: Microbiology 04/15/22 01:30 Blood Culture (Wb) #2 - Anticubital Right Blood Culture - Preliminary No growth in 48 hours. 04/15/22 01:03 Blood Culture (Wb) - Anticubital Right Blood Culture - Preliminary No growth in 48 hours. 04/15/22 01:40 Urine Catheter - Catheter Urine Culture - Final Culture exhibits no growth. 04/15/22 12:06 Mucosa - Nasopharyngeal Respiratory Panel (PCR) - Final Rhinovirus 04/15/22 02:04 Nasal Secretion SARS-CoV-2 & FLU Antigen (Rapid) - Final Rhythm Strip Rhythm Strip: Sinus Rhythm Rate: 95 Ectopy: None Physical Exam Const alert and no apparent distress Constitutional Narrative: Sitting in bedside recliner. Nutritional Appearance: obese HEENT normocephalic and head/scalp atraumatic HEENT Narrative: Dry mucous membranes Eyes PERRL, EOMs intact bilaterally and conjunctivae normal Neck supple General: trachea midline Chest inspection of chest normal Resp normal respiratory effort Auscultation: diminished lung sounds; Negative for rales, rhonchi or wheezes Cardio regular rate and regular rhythm GI normal to inspection, nondistended, normoactive bowel sounds Extremity no clubbing, cyanosis or edema Skin no rashes or lesions noted Neuro CN's II-XII intact bilaterally and no focal motor deficits Psych cooperative and affect normal Charges/Coding Visit Charges Inpatient E&M: 18037 Subs Hosp L2
--- NOTE | 2022-04-18 08:41 | PCM.PN.HOSP ---
Subjective Subjective Seen still remains on supplemental oxygen however she be assessed for home oxygen prior to possible discharge. Objective Data Objective Data Vital Signs: Vital Signs Temp Pulse Resp BP Pulse Ox O2 Del Method O2 Flow Rate 98.2 F 68 18 154/82 H 96 Nasal Cannula 2 04/18/22 08:03 04/18/22 08:03 04/18/22 08:03 04/18/22 08:03 04/18/22 08:03 04/18/22 08:10 04/18/22 08:10 FiO2 50 04/17/22 14:09 Oxygen Flow Rate (L/min) 2 Oxygen Delivery Method Nasal Cannula Weight: 97.3 kg Body Mass Index (BMI) 34.6 Intake & Output: Intake and Output for Last 24 Hours 04/16/22 04/17/22 04/18/22 23:59 23:59 23:59 Intake Total 684 / 784 100 / 100 Balance 684 / 784 100 / 100 Lab / Micro Data Result Diagrams: 04/15/22 05:43 04/15/22 05:43 Micro: Microbiology 04/15/22 01:30 Blood Culture (Wb) #2 - Anticubital Right Blood Culture - Preliminary No growth in 48 hours. 04/15/22 01:03 Blood Culture (Wb) - Anticubital Right Blood Culture - Preliminary No growth in 48 hours. 04/15/22 01:40 Urine Catheter - Catheter Urine Culture - Final Culture exhibits no growth. 04/15/22 12:06 Mucosa - Nasopharyngeal Respiratory Panel (PCR) - Final Rhinovirus 04/15/22 02:04 Nasal Secretion SARS-CoV-2 & FLU Antigen (Rapid) - Final Rhythm Strip Rhythm Strip: Sinus Rhythm Rate: 95 Ectopy: None Physical Exam Narrative GENERAL: Cooperative HEENT: Atraumatic; normocephalic EYES; Anicteric, Normal Conjunctiva NECK; supple, normal thyroid, RESPIRATORY: Diminished to auscultation CARDIOVASCULAR: Regular S1 S2, GI: soft, normoactive bowel sounds, : No Renal angle tenderness; EXTREMITIES: No edema, no clubbing, MUSCULOSKELETAL: no muscle wasting NEURO: Awake; no lateralizing signs. SKIN: No Rash PSYCH; Flat affect Assessment & Plan Assessment/Plan (1) Acute respiratory failure with hypoxia and hypercapnia: (2) Acute exacerbation of chronic obstructive pulmonary disease: (3) Hypertension: QUALIFIERS: Hypertension type: primary hypertension Qualified Code(s): I10 - Essential (primary) hypertension (4) Chronic back pain: (5) Hyperlipidemia: (6) Smoking greater than 40 pack years: PLAN: Plan Patient is a 61-year-old lady admitted with progressive shortness of breath. An assessment of COPD with acute exacerbation made admitted to monitored bed for subsequent management 1. Acute hypoxic respiratory failure ? Secondary to COPD with acute exacerbation patient was managed on noninvasive ventilation BiPAP subsequently admitted to a monitored bed. Patient was treated with systemic steroid, bronchodilator treatment as well as antibiotics. Patient progressed being monitored with continuous pulse oximetry -04/16/2022 Patient seen has been weaned off BiPAP however remains dyspneic at rest. Patient was seen in consultation by Dr Lerma with pulmonary medicine is noted recommendations reviewed ? 04/17/2022;Patient seen still remains on supplemental oxygen currently on 4L/min with oxygen saturation in the mid 90s. Plan is to continue to wean down patient oxygen via nasal cannula. ? 04/18/2022; patient was assessed for home oxygen which she did qualify she would need portability since he is active both at home as well as in the community 2. Dyslipidemia -Patient is on statin therapy, continued at home dose 3. Hypertension - Blood pressure controlled, home medications continued with dose adjustment as needed 4. Class I obesity with BMI of 34.6 ? Weight loss advised 5. Chronic back pain ? Did continue patient home meds 6. Seizure disorder ? Patient is on Keppra did continue 7. GERD ? On PPI 8. Tobacco dependence - Counseled on cessation, offered nicotine patch for tobacco cravings 9. Depression with anxiety ? Did continue home meds 10. DVT prophylaxis ? On enoxaparin 11. Essential tremors ? Symptomatic treatment 12. Physical deconditioning - Requested for PT OT eval and marriage and family social worker to assist with discharge planning ? Patient to continue with physical therapy as outpatient Charges/Coding Visit Charges Inpatient E&M: 37967 Subs Hosp L2
--- NOTE | 2022-04-18 10:10 | CASEMGMT ---
Addendum entered by Dary Temple 04/18/22 14:20: Discharge summary w/documentation supporting need of Home O2 faxed to [facility] at this time. Addendum entered by Dary Temple 04/18/22 12:00: Pt did say AILIN GRAVES could fax script for OP therapy to [facility], but she will make the appts. Script faxed at this time. Addendum entered by Dary Temple 04/18/22 11:40: Home O2 testing completed. Pt qualifies for O2 @ 1 l/m w/exertion only. Referral for O2 sent to [facility] via [facility]. Pt provided w/portable O2 tank from [facility] supply and RN ELY instructed her on Home O2 process. Original Note: AILIN GRAVES NOTE: Pt being discharged home today. AILIN GRAVES to room to discuss discharge planning. Pt declines wanting HHC and states that she would like script for OP therapy @ [facility]. Script obtained from Dr Abernathy and provided to pt. Offered to fax to [facility] and set up appt for pt but she declines and states she will take care of it. She states she plans to drive herself to therapy. She was made aware of [facility] transportation, should she have issues w/transportation and contact info provided. Pt currently on O2. Pt does not have home O2. Discussed home O2 w/pt. Initially she stated she did not want to go home w/oxygen. Discussed importance of oxygen, if she does qualify. Questions answered. Pt stated she would be agreeable to going home w/oxygen now. Pt was provided with list of DME providers consistent with the patient's preferred geographic region, medical needs, and insurance network. She was also made aware [facility] is affilated w/[facility]. The pt's preferred provider is [facility]. Vannessa PARISI, abhay home O2 testing to be completed. Pt states she will need a ride home. Ashleigh, board of education secretary, abhay and states will contact [facility] [employer] to see if they are available to transport pt home. If not, pt states she will take a taxi. Pt states she thinks she has a pulse ox @ home, but she does not know where it is and would like another one, in case she cannot find it. Pulse ox w/pt's chart for RN to give to pt w/instructions on use. Pt states she feels safe to return home and denies having any other discharge planning needs or concerns. Ze TYSONN RN CM
[2022-04-18] MEDS: ARIPiprazole 5 MG Tablet PO (10:21)
[2022-04-18] MEDS: Escitalopram Oxalate 20 MG Tablet PO (10:21)
[2022-04-18] MEDS: hydroCHLOROthiazide 25 MG Tablet PO (10:21)
[2022-04-18] MEDS: levETIRAcetam 750 MG Tablet PO (10:21)
[2022-04-18] MEDS: Enoxaparin 40 MG/0.4 ML Syringe SC (10:22)
[2022-04-18] MEDS: Pantoprazole Sodium 40 MG Tablet PO (10:22)
--- NOTE | 2022-04-18 10:22 | DS.PCM_ITS ---
Providers Date of Admission: 04/15/22 Date of Discharge: 04/18/22 Primary Care Physician: Dr. Nick Lindsey MD Consultations 04/15/22 10:55 Consult: Vice President Of Human Resources / Pulmonary Medicine Routine Consulting Provider: Pulmonary Medicine rhett [place] Reason for Consult: copd EMERGENT Consult: No MD Notified: Yes Date Notified: 04/15/22 Time Notified: 10:55 Method of Notification: Text Reason For Visit: COPD EXACERBATION, ACUTE RESPIRATORY FAILURE Diagnosis Discharge Diagnosis (1) Acute respiratory failure with hypoxia and hypercapnia: Status: Acute Code(s): J96.01 - Acute respiratory failure with hypoxia; J96.02 - Acute respiratory failure with hypercapnia (2) Acute exacerbation of chronic obstructive pulmonary disease: Status: Chronic Code(s): J44.1 - Chronic obstructive pulmonary disease with (acute) exacerbation (3) Hypertension: Status: Chronic Code(s): I10 - Essential (primary) hypertension Qualifiers: Hypertension type: primary hypertension Qualified Code(s): I10 - Essential (primary) hypertension (4) Chronic back pain: Status: Chronic Code(s): M54.9 - Dorsalgia, unspecified; G89.29 - Other chronic pain (5) Hyperlipidemia: Status: Chronic Code(s): E78.5 - Hyperlipidemia, unspecified (6) Smoking greater than 40 pack years: Status: Chronic Code(s): F17.210 - Nicotine dependence, cigarettes, uncomplicated Plan Patient is a 61-year-old lady admitted with progressive shortness of breath. An assessment of COPD with acute exacerbation made admitted to monitored bed for subsequent management 1. Acute hypoxic respiratory failure ? Secondary to COPD with acute exacerbation patient was managed on noninvasive ventilation BiPAP subsequently admitted to a monitored bed. Patient was treated with systemic steroid, bronchodilator treatment as well as antibiotics. Patient progressed being monitored with continuous pulse oximetry -04/16/2022 Patient seen has been weaned off BiPAP however remains dyspneic at rest. Patient was seen in consultation by Dr Lerma with pulmonary medicine is noted recommendations reviewed ? 04/17/2022;Patient seen still remains on supplemental oxygen currently on 4L/ min with oxygen saturation in the mid 90s. Plan is to continue to wean down patient oxygen via nasal cannula. ? 04/18/2022; patient was assessed for home oxygen which she did qualify she would need portability since he is active both at home as well as in the community 2. Dyslipidemia -Patient is on statin therapy, continued at home dose 3. Hypertension - Blood pressure controlled, home medications continued with dose adjustment as needed 4. Class I obesity with BMI of 34.6 ? Weight loss advised 5. Chronic back pain ? Did continue patient home meds 6. Seizure disorder ? Patient is on Keppra did continue 7. GERD ? On PPI 8. Tobacco dependence - Counseled on cessation, offered nicotine patch for tobacco cravings 9. Depression with anxiety ? Did continue home meds 10. DVT prophylaxis ? On enoxaparin 11. Essential tremors ? Symptomatic treatment 12. Physical deconditioning - Requested for PT OT eval and social worker school to assist with discharge planning ? Patient to continue with physical therapy as outpatient Medications at Discharge Home Medications buprenorphine 15 mcg/hour weekly transdermal patch 15 mcg topical TH PAIN 05/23/20 Handicap Placard #1 ea 08/13/20 pregabalin 75 mg capsule 75 mg PO TID nerve pain 10/05/20 walker #1 ea 10/05/20 comp.stocking,thigh,long,x-lrg #4 ea 01/29/21 albuterol sulfate 90 mcg/actuation aerosol inhaler 2 puff inhalation Q6H PRN shortness of breath or wheezing #8.5 grams 04/11/21 baclofen 20 mg tablet 10 mg PO TID PRN Spasms #30 tabs 04/11/21 escitalopram oxalate 20 mg tablet 20 mg PO DAILY DEPRESSION #90 tabs 04/11/21 fluticasone propionate 50 mcg/actuation nasal spray,suspension (Flonase Allergy Relief) 2 spray intranasal DAILY PRN allergy symptoms #15.8 mL 09/03/21 lisinopril 20 mg-hydrochlorothiazide 25 mg tablet 1 tab PO DAILY BP #90 tabs 11/01/21 mirtazapine 15 mg disintegrating tablet 15 mg PO QHS DEPRESSION #90 tabs 11/25/21 levetiracetam 750 mg tablet 750 mg PO BID #180 tabs 11/26/21 buspirone 5 mg tablet 5 mg PO TID DEPRESSION #270 tabs 02/17/22 omeprazole 40 mg capsule,delayed release 40 mg PO DAILY GERD #90 caps 02/26/22 cetirizine 10 mg tablet (Zyrtec) 10 mg PO DAILY PRN Congestion #90 tabs 03/12/22 fenofibrate nanocrystallized 48 mg tablet 48 mg PO DAILY CHOLESTEROL #90 tabs 04/11/22 aripiprazole 5 mg tablet 5 mg PO BID DEPRESSION #180 tabs 04/14/22 doxycycline hyclate 100 mg capsule 100 mg PO BID #14 caps 04/18/22 guaifenesin 1,200 mg tablet, extended release 12 hr (Mucinex) 1,200 mg PO BID #14 tabs 04/18/22 nicotine 21 mg/24 hr daily transdermal patch 21 mg transdermal DAILY #30 ea 04/18/22 prednisone 20 mg tablet 20 mg PO BID #14 tabs 04/18/22 Hospital Course Summary of Care Provided Minutes Spent on Discharge: 35 Physical Exam Narrative GENERAL: Cooperative HEENT: Atraumatic; normocephalic EYES; Anicteric, Normal Conjunctiva NECK; supple, normal thyroid, RESPIRATORY: Diminished to auscultation CARDIOVASCULAR: Regular S1 S2, GI: soft, normoactive bowel sounds, : No Renal angle tenderness; EXTREMITIES: No edema, no clubbing, MUSCULOSKELETAL: no muscle wasting NEURO: Awake; no lateralizing signs. SKIN: No Rash PSYCH; Flat affect Weight / BMI Weight Weight: 97.3 kg Body Mass Index (BMI) 34.6 ABG / Lab / Microbiology Data Result Diagrams: 04/15/22 05:43 04/15/22 05:43 Microbiology: Microbiology 04/15/22 01:30 Blood Culture (Wb) #2 - Anticubital Right Blood Culture - Preliminary No growth in 48 hours. 04/15/22 01:03 Blood Culture (Wb) - Anticubital Right Blood Culture - Preliminary No growth in 48 hours. 04/15/22 01:40 Urine Catheter - Catheter Urine Culture - Final Culture exhibits no growth. 04/15/22 12:06 Mucosa - Nasopharyngeal Respiratory Panel (PCR) - Final Rhinovirus 04/15/22 02:04 Nasal Secretion SARS-CoV-2 & FLU Antigen (Rapid) - Final D/C Instructions Discharge Diet: No restrictions Discharge Activity: Return to Normal Activity Call your doctor if you observe: Fever of 101 or Higher, Shortness of breath, Fainting spells and Chest pain Meaningful Use Info Meaningful Use Diagnoses (Choose all that apply): None applicable Discharge Plan Admission Admit Date/Time: 04/15/22 03:05 Attending Provider: Reyes Abernathy Primary Care Provider: Nick Lindsey Consulting Providers: Zachary Azevedo ; Edwin Ayala ; Rodolfo Welsh ; Alfa Maya ; Jeffrey Crawford ; Daisha Gilbert APPRENTICE PHOTOGRAPHER Discharge Orders/Prescriptions Prescriptions: New prednisone 20 mg tablet 20 mg PO BID Qty: 14 0RF doxycycline hyclate 100 mg capsule 100 mg PO BID Qty: 14 0RF Mucinex 1,200 mg tablet extended release 12hr 1,200 mg PO BID Qty: 14 0RF nicotine 21 mg/24 hr Patch 24 Hour 21 mg transdermal DAILY Qty: 30 0RF Continued pregabalin 75 mg capsule 75 mg PO TID Label Comments: take 1 capsule by mouth three times a day (DME) comp.stocking,thigh,long,x-lrg [facility] See Rx Instructions .ROUTE .MEDSUPPLY Qty: 4 2RF Rx Instructions: As directed fluticasone propionate [Flonase Allergy Relief] 50 mcg/actuation spray,suspension 2 spray INTRANASAL DAILY PRN (Reason: allergy symptoms) Qty: 15.8 1RF Rx Instructions: administer into each nostril levetiracetam 750 mg tablet 750 mg PO BID Qty: 180 1RF cetirizine [Zyrtec] 10 mg tablet 10 mg PO DAILY PRN (Reason: Congestion) Qty: 90 2RF buprenorphine 1 EACH patch weekly 15 mcg TOPICAL TH MDD th (DME) Handicap Placard See Rx Instructions .ROUTE .MEDSUPPLY Qty: 1 0RF Rx Instructions: As directed, length of time 3 years (DME) mark [facility] See Rx Instructions .ROUTE .MEDSUPPLY Qty: 1 0RF Rx Instructions: rollator with wheels and a seat albuterol sulfate 90 mcg/actuation HFA aerosol inhaler 2 puff inhalation Q6H PRN (Reason: shortness of breath or wheezing) Qty: 8.5 2RF baclofen 20 mg tablet 10 mg PO TID PRN (Reason: Spasms) Qty: 30 1RF escitalopram oxalate 20 mg tablet 20 mg PO DAILY Qty: 90 3RF lisinopril-hydrochlorothiazide 20-25 mg tablet 1 tab PO DAILY Qty: 90 1RF mirtazapine 15 mg tablet,disintegrating 15 mg PO QHS Qty: 90 1RF buspirone 5 mg tablet 5 mg PO TID Qty: 270 1RF omeprazole 40 mg capsule,delayed release(DR/EC) 40 mg PO DAILY Qty: 90 3RF fenofibrate nanocrystallized 48 mg tablet 48 mg PO DAILY Qty: 90 3RF aripiprazole 5 mg tablet 5 mg PO BID Qty: 180 3RF Other Ambulatory Orders: Physical Therapy Evaluation (Routine) Location: None Selected Ordered By: Dr. Reyes Abernathy Referrals / Follow Up: Rodolfo Welsh DO [Med Staff - Active Staff] - Within 2 Weeks Nick Lindsey MD [Primary Care Provider] - In 1 Week Disposition Disposition (needs filled in before D/C Order can be placed): Home, Self Care Charges/Coding Visit Charges Inpatient E&M: 31480 Disch Hosp
[2022-04-18] MEDS: Lisinopril 20 MG Tablet PO (10:23)
--- NOTE | 2022-04-18 11:06 | PHA.DC.MC ---
Pharmacy Service has performed discharge medication reconciliation and counseling for this patient. 1. DOXYCYCLINE 100MG PO BID X 7 DAYS 2. GUAIFENESIN 1200MG PO BID X 7 DAYS 3. NICOTINE 21MG 1 PATCH TD DAILY 4. PREDNISONE 20MG PO BID X 7 DAYS The patient's discharge medication list was reviewed for discrepancies and discrepancies were resolved. Home Medications buprenorphine 15 mcg/hour weekly transdermal patch 15 mcg topical TH PAIN 05/23/20 Handicap Placard #1 ea 08/13/20 pregabalin 75 mg capsule 75 mg PO TID nerve pain 10/05/20 walker #1 ea 10/05/20 comp.stocking,thigh,long,x-lrg #4 ea 01/29/21 albuterol sulfate 90 mcg/actuation aerosol inhaler 2 puff inhalation Q6H PRN shortness of breath or wheezing #8.5 grams 04/11/21 baclofen 20 mg tablet 10 mg PO TID PRN Spasms #30 tabs 04/11/21 escitalopram oxalate 20 mg tablet 20 mg PO DAILY DEPRESSION #90 tabs 04/11/21 fluticasone propionate 50 mcg/actuation nasal spray,suspension (Flonase Allergy Relief) 2 spray intranasal DAILY PRN allergy symptoms #15.8 mL 09/03/21 lisinopril 20 mg-hydrochlorothiazide 25 mg tablet 1 tab PO DAILY BP #90 tabs 11/01/21 mirtazapine 15 mg disintegrating tablet 15 mg PO QHS DEPRESSION #90 tabs 11/25/21 levetiracetam 750 mg tablet 750 mg PO BID #180 tabs 11/26/21 buspirone 5 mg tablet 5 mg PO TID DEPRESSION #270 tabs 02/17/22 omeprazole 40 mg capsule,delayed release 40 mg PO DAILY GERD #90 caps 02/26/22 cetirizine 10 mg tablet (Zyrtec) 10 mg PO DAILY PRN Congestion #90 tabs 03/12/22 fenofibrate nanocrystallized 48 mg tablet 48 mg PO DAILY CHOLESTEROL #90 tabs 04/11/22 aripiprazole 5 mg tablet 5 mg PO BID DEPRESSION #180 tabs 04/14/22 doxycycline hyclate 100 mg capsule 100 mg PO BID #14 caps 04/18/22 guaifenesin 1,200 mg tablet, extended release 12 hr (Mucinex) 1,200 mg PO BID #14 tabs 04/18/22 nicotine 21 mg/24 hr daily transdermal patch 21 mg transdermal DAILY #30 ea 04/18/22 prednisone 20 mg tablet 20 mg PO BID #14 tabs 04/18/22 The patient was counseled on the following discharge medications and changes in medications for homegoing were reviewed. The Reason for Use, instructions for use, and potential side effects were reviewed for all new medications. The patient's questions regarding all of their medications were answered. The patient was able to verbally demonstrate an understanding of their discharge medications.
--- NOTE | 2022-04-18 15:08 | NURSING ---
Reviewed charting with Alvino Shah RN
== END 2022-04-18 15:38 | disposition home or self-care (01) | DRG 140 ==
LOC: ED 02:37 → PCU 05:27
PROVIDERS: Admitting Provider Family Medicine; Emergency Provider Emergency Medicine; PCP Internal Medicine; Visit Provider Internal Medicine
DX: J44.1 Chronic obstructive pulmonary disease with (acute) exacerbation (principal); J96.01 Acute respiratory failure with hypoxia; J96.02 Acute respiratory failure with hypercapnia; G40.909 Epilepsy, unspecified, not intractable, without status epilepticus; I12.9 Hypertensive chronic kidney disease with stage 1 through stage 4 chronic kidney disease, or unspecified chronic kidney disease; N18.9 Chronic kidney disease, unspecified; M54.9 Dorsalgia, unspecified; E78.00 Pure hypercholesterolemia, unspecified; F41.9 Anxiety disorder, unspecified; K21.9 Gastro-esophageal reflux disease without esophagitis; G25.0 Essential tremor; J06.9 Acute upper respiratory infection, unspecified; F17.210 Nicotine dependence, cigarettes, uncomplicated; G89.4 Chronic pain syndrome; B97.89 Other viral agents as the cause of diseases classified elsewhere; Z23 Encounter for immunization; Z20.822 Contact with and (suspected) exposure to COVID-19; F32.A Depression, unspecified; E66.9 Obesity, unspecified; Z68.34 Body mass index [BMI] 34.0-34.9, adult; Z71.6 Tobacco abuse counseling
CPT/HCPCS: 36415; 36600; 71045; 80048; 81001; 82803; 83605; 83880; 84484; 85025; 85610; 85730; 87040; 87086; 87428; 87633; 93005; 94002; 94640; 94762; 97162; 97166; 97530; 97535; 99251; 99285; 99406; J7030; 90686; A4216; G0463

== ENCOUNTER 2022-06-12 14:00 | Outpatient (RCR) | payer MEDICAID, SELFPAY ==
--- NOTE | 2022-05-12 09:12 | HP.OTEVAL_ITS ---
Patient's Visit Information CASI APARICIO is a 61 year old F, referred to Occupational Therapy by Dr. Reyes Abernathy MD, with a diagnosis of debility. Date of Evaluation: 05/12/22 Occupational Therapist: Aixa Monahan, OTR/Radha, CHT - Subjective This 61 year old female was seen for OT eval with generalized weakness- pt states she went to hospital due to SOB- (pt has hx of COPD) pt states she spent 3 days in hospital- pt states she has had tremors for over two years. 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 pt states she does get together with other people in her same apt. complex daily to play cards, bingo or just sit and chat. - ADLs Comments: pt ambulates with rollater and has been for about 8 months- pt states due to back sx and back pain. pt sleeps with O2 2 liters-. pt states she sponge bathes at bathroom sink-. pt lives in apt. complex with elevator-. bathroom has tub shower combo-. pt has first alert-. call lights in bathroom. pt states she does order her groceries over the phone-. pt does all cleaning and cooking-. pt has to take laundry to the bottom floor- pt states she goes ones every two weeks. pt states she has lived in this apt. building for two years. pt states family is out of state. pt does drive. - Pain back 0 Pain Intensity Range: 2 - ROM ROM Comments: pt demo ROM WNL - Strength Shoulder: right peak force 7# left 6# Elbow: right peak force 12# left 10# Sport Shoe Spike Assembler: right 10# left 10# Lateral Pinch: right unable left unable Tripod Pinch: right unable left unable - Quick DASH-Disab of Arm,Shoulder& Hand Quick DASH Score: 50.0000 - Goals Goal:: pt will demo a increase in bilateral UB peak force by 15# to increase pts ind. with ADLs and IADLs D/C. pt will demo a increase in bilateral web analytics developer strength by 20# or greater by d/c Goal:: pt will report the ability to perform laundry 1x week by d/c Goal:: pt will demo understanding of energy conservation balbina. to increase pts ind. with ADls and IADls. pt will demo the ability to use safety balbina. and ad. eq. with cooking and cleaning tasks by d/c - Rehabilitation General Assessment: pt demo with generalized weakness limiting pts ind. with ADls and IADLs. Pt would benefit from skilled OT services 2-3x week for 4 weeks to strengthen UB to increase ind. with her ADLs and IADLS. pt demo understanding and agree to POC. Rehabilitation Potential: Good - Anticipated Interventions Strengthening, Ergonomic Education, Education re assistive Equipment, Education re Diagnosis, Home Program - Visit Plan Frequency: 2-3x /Week Duration: 2 Months TEXT: Thank you for the opportunity to evaluate your patient. For Medicare and Medicare HMO plans, please review the plan of care and approve it. It will need to be FAXED BACK to us at [phone] for Medicare purposes. Please let me know if there are questions or concerns regarding this plan of care. Physician Signature: Date:
--- NOTE | 2022-05-22 13:13 | HP.PTEVAL_ITS ---
Patient's Visit Information CASI APARICIO is a 61 year old F referred to Physical Therapy by Dr. Nick Lindsey MD with a diagnosis of GENERALIZED WEAKNESS ,IMPAIRED MOBILITY. Date of Evaluation: 05/22/22 Physical Therapist: Anirudh Craft, PT, Cert MDT, OCS - Visit Plan Frequency: 2x /Week Duration: 4 Weeks Plan: PT INTERVENTIONS PROGRESSIVE BALANCE TRAINING ,ENDURANCE PROGRAM ,FUNCTIONAL STRENGTHNEING AND BLE STRENGTHENING - Subjective This 61 y/o female presents to physical therapy with generalized weakness and impaired mobility. This patient was recently hospitalized for 4 days due SOB with acute respiratory failure. Patient was hospitalized for ~ 4 days . Patient d/c to home with rollator but uses it due to back pain. Patient had recently DR appointment and recommended PT due to decrease endurance and generalized wea kness. Patient has changed BP medication. Patient has difficulty with ADLS but is able to bath dress and does light cooking. Currently ,use 02 at night. Patient resides in Senior citizen apartment [facility]. Patient has step in tub with shower chair. Patient has grab rails. Patient c/o back pain symmetrical lumbar. Back pain is worse with walking. Denies paresthesia/tingling. No recent falls. Patient goals to get stronger. Patient condition affects QOL and function,. VOCATION: retired. SOCAIL: - Pain Bilateral Back Pain Intensity (Out of 10): 7 Pain Intensity Range: 10 - Objective POSTURE: mild forward posture. GAIT: reciprocal pattern with rollator mild forward posture. PALPATION: tender paraspinals/LS. BALANCE: fair +. MMT:(peak force) quads right 22.6,left 23.8,hamstrings 22.9 left ,right 22.3 ,hip flexion 15.2 right .,left 14.9 ,ankle 4/5. SpO2: 97%. AROM: knee flexion 0-120 degrees. FLEXABLITY: hamstrings min tight - Balance/Special Test Scores CATSIB Score (Max score 120 seconds): 55 Lower Extremity Functional Score: 20 30 Second Chair Rise Test Seconds: 4 - Goals Goal 1:: I with HEP for strengthening Goal Time Frame: 4-6 Weeks Goal 2:: Patient improve 30sec sit-stand by 3-4 reps to improve function Goal Time Frame: 4-6 Weeks Goal 3:: Patient improve CATSIB by 5-10 points to improve balance Goal Time Frame: 4-6 Weeks Goal 4:: Patient to improve peak force of quads/hams/hip by 5-10 to improve to improve gait Goal Time Frame: 4-6 Weeks Goal 5:: Patient to improve LFES score by 5-10 points to improve QOL and function Goal Time Frame: 4-6 Weeks - Rehabilitation Potential Physical Therapy Diagnosis: This patient has weakness and impaired mobility due to recent hospital stay impairs walking ,endurance and ADL's thus needs skilled PT Rehabilitation Potential: Good - Anticipated Interventions Patient/Client Instruction: Educate patient on: Condition, Plan of Care For the Purpose of:: To decrease pain, To improve muscle performance and motor function, To improve ability to perform ADL's, To increase tolerance to activity/condition/position, To improve ability of physical actions for home/community/work/leisure, To improve gait and locomotor functions, To decrease soft tissue restriction, To improve balance, To improve tolerance to ADL's Therapeutic Exercise to Include: Strength training, Endurance training, Balance training, Gait and locomotor training, Active ROM For the Purpose of:: To improve muscle performance and motor function, To increase tolerance to activity/condition/position, To decrease level of supervision to perform tasks, To improve gait and locomotor functions, To improve endurance, To improve balance, To improve safety with gait, To improve tolerance to ADL's Thank you for the opportunity to evaluate your patient. For Medicare and Medicare HMO plans, please review the plan of care and approve it. It will need to be FAXED BACK to us at [phone] for Medicare purposes. For Medicare only, by signing this I certify the plan of care. Please let me know if there are questions or concerns regarding this plan of care. Physician Signat ure: Date:
--- NOTE | 2022-07-11 12:24 | HP.PT.NRP ---
CASI APARICIO was seen in my office for initial evaluation on 05/22/22. The following Plan of Care was established for this patient: Initial Frequency: 2x /Week Initial Duration: 4 Weeks Patient/Client Instruction: Educate patient on: Condition, Plan of Care For the Purpose of:: To decrease pain, To improve muscle performance and motor function, To improve ability to perform ADL's, To increase tolerance to activity/condition/position, To improve ability of physical actions for home/community/work/leisure, To improve gait and locomotor functions, To decrease soft tissue restriction, To improve balance, To improve tolerance to ADL's Therapeutic Exercise to Include: Strength training, Endurance training, Balance training, Gait and locomotor training, Active ROM For the Purpose of:: To improve muscle performance and motor function, To increase tolerance to activity/condition/position, To decrease level of supervision to perform tasks, To improve gait and locomotor functions, To improve endurance, To improve balance, To improve safety with gait, To improve tolerance to ADL's This patient was last seen in our office . Pertinent comments regarding their Physical therapy will appear below: Patient was seen for PT for general decrease mobility and seen foR PT evaluation then D/C At this point I will be discontinuing this patient from physical therapy. I would be happy to see this patient again in the future if found appropriate by the physician. Thank you! Anirudh Craft, PT, Cert MDT, OCS Balance/Gait/Functional tests - Balance/Special Test Scores CATSIB Score (Max score 120 seconds): 55 Lower Extremity Functional Score: 20 30 Second Chair Rise Test Seconds: 4
== END 2022-06-12 19:00 | disposition home or self-care (01) ==
LOC: PT 14:00
PROVIDERS: PCP Internal Medicine; Referring Provider Internal Medicine; Visit Provider Internal Medicine
DX: M62.81 Muscle weakness (generalized) (principal); R26.89 Other abnormalities of gait and mobility
CPT/HCPCS: 97110; 97162; 97166; 97530

== ENCOUNTER → 2022-07-22 | Outpatient (CLI) | payer MEDICAID, SELFPAY ==
--- NOTE | 2022-07-22 14:46 | RAD_ITS ---
STUDY: X-RAY - PELVIS AND LEFT HIP REASON FOR EXAM: Female, 62 years old. Left hip and left groin pain. TECHNIQUE: 4 views of the pelvis and hip. COMPARISON: Pelvis and right hip, March 25, 2019 FINDINGS: There is a non-specific bowel gas pattern. Normal visualized soft tissue structures. Vascular calcification There is fusion of the lumbosacral spine. Normal bilateral iliac wings, sacroiliac joints and visualized sacrum. Normal bilateral superior and inferior pubic rami. Normal pubic symphysis. Normal bilateral ischial tuberosities. Normal visualized left femoral head. Normal left acetabulum. Normal left hip joint. RAD/HIP, UNI W/ Pelvis 2-3 Views IMPRESSION: Normal x-ray examination of the pelvis and left hip. No major interval change. Electronically Signed: Ty Monsivais DO at 23:32 EST ,
== END | disposition home or self-care (01) ==
LOC: MTRAD 14:44
PROVIDERS: PCP Internal Medicine; Referring Provider Anesthesiology Pain Medicine; Visit Provider Anesthesiology Pain Medicine
DX: R10.2 Pelvic and perineal pain (principal)
CPT/HCPCS: 73502

== ENCOUNTER → 2022-08-27 | Outpatient (CLI) | payer MEDICAID, SELFPAY ==
--- NOTE | 2022-08-27 13:14 | MRI_ITS ---
STUDY: MRI LUMBAR SPINE WITHOUT CONTRAST REASON FOR EXAM: Female, 62 years old. POSTLAMINECTOMY SYNDROME TECHNIQUE: Standardized fat and water weighted pulse sequences were obtained in the sagittal and axial planes. COMPARISON: None FINDINGS: Limited study within the sagittal projection only due to inability of the patient to tolerate the procedure tolerated the procedure T12-L1: Normal endplates. Normal disc height, hydration and morphology. Normal bilateral facet joints. Normal central canal and bilateral lateral recesses. Normal bilateral intervertebral neural foramina. Normal lumbar lordosis. There is no substantial scoliosis. Normal conus medullaris that terminates at the L1-2: Narrowed disc space with desiccation of disc and mild to moderate bulging of the annulus. Facet arthropathy and thickening of ligamenta flava. Mild to moderate narrowing of the central canal and impingement upon the ventral surface of the cord exaggerated by posterior epidural fat pad. Mild bilateral lateral recess stenosis and moderate bilateral neural foraminal stenosis L2-3: Narrowed disc space with desiccation of the disc and minimal bulging disc osteophyte complex. Facet arthropathy.. Mild narrowing of the central canal due to posterior epidural fat pad. Normal bilateral lateral recesses. Moderate bilateral neural foraminal encroachment exaggerated by shortened pedicles L3-4: Postsurgical changes status post bilateral laminectomy and posterior fusion narrowed disc space and grade 1 retrolisthesis with minor bulging disc osteophyte complex. Normal central canal bilateral lateral recesses and neuroforamina. L4-5: Status post bilateral laminectomy and posterior fusion. Grade 1 spondylolisthesis. Narrowed disc space with desiccation of the disc and minor bulging disc osteophyte complex. Normal central canal bilateral lateral recesses and neuroforamina L5-S1: Status post bilateral laminectomy and posterior fusion with disc spacer placement. Normal central canal and bilateral lateral recesses. Normal bilateral intervertebral neural foramina. Normal visualized sacral ala. Normal visualized paraspinous soft tissue structures. MRI/Spine Lumbar (Routine) IMPRESSION: Limited study confined to sagittal imaging.. Postsurgical changes at L3-4 L4-5 and L5-S1. Spinal stenosis at L1-L2 3 secondary to disc disease and facet arthropathy and thickening of ligamenta flava exaggerated by posterior epidural fat pads and shortened pedicles Electronically Signed: Demetrius Bruno MD at 21:07 EST ,
== END | disposition home or self-care (01) ==
LOC: MRI 13:03
PROVIDERS: PCP Internal Medicine; Referring Provider Anesthesiology Pain Medicine; Visit Provider Anesthesiology Pain Medicine
DX: M96.1 Postlaminectomy syndrome, not elsewhere classified (principal)
CPT/HCPCS: 72148

== ENCOUNTER 2022-10-27 11:36 | Day surgery (SDC) | payer MEDICAID, SELFPAY ==
[2022-10-27] VITALS (7 sets, daily range): BP systolic 114–148; BP diastolic 65–90; PULSE 68–80; RESP 12–18; TEMP 36.7–37.1; O2SAT 93–95; BMI 33.9
[2022-10-27] MEDS: Lactated Ringers 1,000 ML 15 ML IV (12:29)
--- NOTE | 2022-10-27 13:26 | RAD_ITS ---
PROCEDURE: Caudal block. DATE OF EXAMINATION: October 27, 2022. INDICATION: Female, 62 years old. Low back pain. FLUOROSCOPY TIME (if supplied): (3 seconds) minutes/seconds. 2.46 Gyi. One image was submitted. RAD/Fluor Guidance for Spine Inj IMPRESSION: Intraoperative imaging provided for caudal block. Electronically Signed: Kody Lakhani MD at 14:46 EDT ,
[2022-10-27] MEDS: Lidocaine 1% (5 ml sdv) 5 ML Vial (13:31)
[2022-10-27] MEDS: 0.9% Normal Saline (Pres. free 10 ML Vial (13:31)
[2022-10-27] MEDS: MethylPREDNISolone Acetate 80 MG/ML Vial (13:31)
--- NOTE | 2022-10-27 14:59 | OP.PCM_ITS ---
Report of Operation Date of Procedure: 10/27/22 Pre-Operative Diagnosis: Lumbosacral radiculopathy, lumbosacral degenerative di sc disease, lumbosacral spinal stenosis Post-Operative Diagnosis: Lumbosacral radiculopathy, lumbosacral degenerative disc disease, lumbosacral spinal stenosis Surgery/Procedure Performed:: Caudal epidural steroid injection under fluoroscopic guidance Type of Anesthesia: MAC Estimated Blood Loss (mL): Minimal Description of Procedure: DESCRIPTION OF PROCEDURE: History and physical of today was reviewed. Risks and benefits of the procedure were explained. The patient understood and agreed to proceed. Informed consent was obtained. IV inserted per routine protocol. The patient was taken to the operating room and placed in the prone position with a pillow positioned underneath the abdomen. The lower back and tailbone area was prepped and draped in a sterile fashion using iodine x3. Under fluoroscopy guidance on a lateral view, the caudal space was identified. The skin and subcutaneous tissue was anesthetized with approximately 3 mL of 1% lidocaine using a 25-gauge regular needle. Under direct visualization with fluoroscopy, using a 22-gauge 3-1/2-inch spinal needle, the needle was advanced via the skin through the sacral hiatus. The tip of the needle was passed through the sacrococcygeal ligament and advanced to approximately S4 area. After negative aspiration of blood or CSF, a total of 3 mL of contrast was injected to confirm correct placement of the needle as well as cephalad spread. The spread was followed to approximately L5 area. After confirmation on AP as well as lateral view and repeated negative aspiration, a total of 15 mL of preservative-free 0.125% Marcaine with 80 mg of Depo-Medrol was injected easily. The needle was then removed intact. The patient experienced no sign or symptoms of intrathecal or intravascular injection. The patient experienced no paresthesia. The procedure was completed without any apparent difficulty or any complications. The patient appeared to tolerate it well. ASSESSMENT AND PLAN: This is a 62-year-old female with lumbosacral radiculopathy, lumbosacral degenerative disc disease, lumbosacral spinal stenosis status post caudal epidural steroid injection, patient will continue her current medications, patient will follow in approximately 2 weeks for reevaluation. Complications None
== END 2022-10-27 14:49 | disposition home or self-care (01) ==
LOC: SDC 11:36 → AC 11:40
PROVIDERS: PCP Internal Medicine; Referring Provider Anesthesiology Pain Medicine; Visit Provider Anesthesiology Pain Medicine
PROC: 3E0S3BZ Introduction of Anesthetic Agent into Epidural Space, Percutaneous Approach (ICD-10-PCS; CPT 62282; principal; 2022-10-27 13:45)
DX: M51.17 Intervertebral disc disorders with radiculopathy, lumbosacral region (principal); M48.07 Spinal stenosis, lumbosacral region; I12.9 Hypertensive chronic kidney disease with stage 1 through stage 4 chronic kidney disease, or unspecified chronic kidney disease; N18.9 Chronic kidney disease, unspecified; G40.909 Epilepsy, unspecified, not intractable, without status epilepticus; J44.9 Chronic obstructive pulmonary disease, unspecified; K21.9 Gastro-esophageal reflux disease without esophagitis; F17.200 Nicotine dependence, unspecified, uncomplicated; Z79.899 Other long term (current) drug therapy
CPT/HCPCS: 62323; 01992; 77003; 64483; J7120; J3490

== ENCOUNTER 2023-02-21 18:28 | Inpatient (IN) | payer MEDICAID, SELFPAY ==
[2023-02-21] VITALS (11 sets, daily range): BP systolic 112–155; BP diastolic 60–110; PULSE 80–116; RESP 12–23; TEMP 36.4–36.9; O2SAT 68–98; BMI 38.0; BMI 38.4
--- NOTE | 2023-02-21 18:45 | ED.VIS.DYS ---
HPI <MELVINA Mejia - Last Filed: 02/21/23 21:29> History of Present Illness Chief Complaint: Shortness of Breath Narrative Narrative: Patient presenting today with shortness of breath both at rest and with exertion that she has had for the past 2 days. Today the shortness of breath gradually worsened to the point where her oxygen saturation was in the 80s she does not use supplemental O2 at home. She reports that she has been coughing up green phlegm, has a sore throat, and feels like she has a cold. She denies any fever, chills, chest pain, history of blood clots. PMH includes hypertension, COPD, and seizure disorder. PE Risk Factors: Negative for Prior DVT or PE, Recent immobilization, Recent surgery or Recent travel PFSH <MELVINA Mejia - Last Filed: 02/21/23 21:29> [facility] Medical History (Updated 02/21/23 @ 21:[address] Myriam Ferro MD) Arthritis Asthma Chronic pain COPD (chronic obstructive pulmonary disease) Cough Depression Epilepsy Gastric reflux GI bleed High cholesterol History of edema Hypertension Leg cramps Lower extremity edema Neuropathy Restless legs Seasonal allergies Seizures Shortness of breath Smoker Sore throat Stasis dermatitis Tobacco abuse Venous insufficiency of both lower extremities Vitamin D deficiency Walker as ambulation aid Wears dentures Wears glasses Home Medications buprenorphine 15 mcg/hour weekly transdermal patch 20 mcg topical TH PAIN 05/23/20 [History Last Taken 02/24/21] Handicap Placard #1 ea 08/13/20 [Rx Last Taken 02/24/21] pregabalin 75 mg capsule 75 mg PO TID nerve pain 10/05/20 [History Last Taken 10/27/22] walker #1 ea 10/05/20 [Rx Last Taken 02/24/21] comp.stocking,thigh,long,x-lrg #4 ea 01/29/21 [Rx Last Taken 02/24/21] baclofen 20 mg tablet 10 mg (1/2 x 20 mg) PO TID PRN Spasms #30 tabs 04/11/21 [Rx Last Taken Unknown] fluticasone propionate 50 mcg/actuation nasal spray,suspension (Flonase Allergy Relief) 2 spray intranasal DAILY PRN allergy symptoms #15.8 mL 09/03/21 [Rx Last Taken Unknown] cetirizine 10 mg tablet (Zyrtec) 10 mg PO DAILY PRN Congestion #90 tabs 03/12/22 [Rx Last Taken Unknown] fenofibrate nanocrystallized 48 mg tablet 48 mg PO DAILY CHOLESTEROL #90 tabs 05/06/22 [Rx Last Taken Unknown] miscellaneous medical supply (Blood Pressure Cuff) #1 ea 05/06/22 [Rx Last Taken Unknown] nystatin 100,000 unit/gram topical powder 1 applic topical BID PRN rash #30 grams 05/06/22 [Rx Last Taken Unknown] buspirone 5 mg tablet 5 mg PO TID DEPRESSION #270 tabs 08/19/22 [Rx Last Taken Unknown] levetiracetam 750 mg tablet 750 mg PO BID #60 tabs 11/19/22 [Rx Last Taken Unknown] mirtazapine 15 mg disintegrating tablet See Rx Instructions .Route .COMPLEX #90 tabs 12/02/22 [Rx Last Taken Unknown] aripiprazole 2 mg tablet 2 mg PO DAILY #30 tabs 12/16/22 [Rx Last Taken Unknown] benztropine 0.5 mg tablet 0.5 mg PO BID #60 tabs 12/16/22 [Rx Last Taken Unknown] budesonide 160 mcg-glycopyr 9 mcg-formot 4.8 mcg/actuation HFA inhaler (Breztri Aerosphere) 2 inh inhalation BID #10.7 grams 12/22/22 [Rx Last Taken Unknown] escitalopram oxalate 20 mg tablet 20 mg PO DAILY DEPRESSION #90 tabs 12/29/22 [Rx Last Taken Unknown] lisinopril 20 mg-hydrochlorothiazide 12.5 mg tablet 1 tab PO DAILY #90 tabs 12/29/22 [Rx Last Taken Unknown] omeprazole 40 mg capsule,delayed release 40 mg PO DAILY GERD #90 caps 02/03/23 [Rx Last Taken Unknown] Allergy/AdvReac Type Severity Reaction Status Date / Time clindamycin Allergy Hives Verified 02/21/23 18:29 aspirin AdvReac Severe Upset Verified 02/21/23 18:29 Stomach Penicillins AdvReac Severe vomiting Verified 02/21/23 18:29 Family History Mother Breast cancer Hypertension Hyperlipemia Cancer melanoma, lyphoma ulcers Father Diabetes Myocardial infarction, Onset Age: 67 Hypertension Depression Sister Depression Hyperlipemia Surgical History H/O: hysterectomy History of ankle surgery History of back surgery History of tonsillectomy Hx of colonoscopy Hx of right knee surgery Social History household members: friend(s) Smoking Status: Current every day smoker tobacco type: cigarettes Tobacco: How many years used: 25 second hand exposure: No alcohol intake: never substance use type: does not use what type of physical activity do you participate in: walking frequency: 3-4 times per week dari/voodoo: Confucianism seatbelt use: sometimes ROS <MELVINA Mejia - Last Filed: 02/21/23 21:29> ROS ED Constitutional Constitutional ED: Denies chills or fever(s) Cardiovascular Cardiovascular: Denies chest pain or palpitations Respiratory/Chest Respiratory/Chest: Reports cough, dyspnea, dyspnea on exertion and sputum Gastrointestinal Gastrointestinal: Denies abdominal pain, nausea or vomiting Musculoskeletal Musculoskeletal: Denies arthralgias or myalgias Integumentary Denies rash Neurologic Neurologic: Denies weakness EXAM <MELVINA Mejia - Last Filed: 02/21/23 21:29> Physical Exam Const Vital Signs: 02/21/23 18:29 02/21/23 18:28 02/21/23 18:44 Temperature 98.2 F Temperature Source Temporal Pulse Rate 116 H Respiratory Rate 23 H Respiratory Effort Short of Breath Blood Pressure 155/110 H Blood Pressure Mean 125 Pulse Ox 68 85 Oxygen Delivery Method Room Air Nasal Cannula Oxygen Flow Rate (L/min) 3 02/21/23 18:45 02/21/23 20:57 02/21/23 21:05 Temperature 97.5 F L Temperature Source Temporal Pulse Rate 88 84 Respiratory Rate 18 18 Respiratory Effort Blood Pressure 119/82 H 138/60 H Blood Pressure Mean 94 86 Pulse Ox 93 94 93 Oxygen Delivery Method Nasal Cannula Nasal Cannula Nasal Cannula Oxygen Flow Rate (L/min) 5 5 4 02/21/23 21:26 Temperature 97.5 F L Temperature Source Temporal Pulse Rate 88 Respiratory Rate 16 Respiratory Effort Blood Pressure 131/78 H Blood Pressure Mean 95 Pulse Ox 92 Oxygen Delivery Method Nasal Cannula Oxygen Flow Rate (L/min) 4 Positive well nourished, well developed and no apparent distress General Appearance ED: well developed HEENT Reports normocephalic and head/scalp atraumatic Mouth ED: Yes moist mucous membranes normal Eyes PERRL and EOMs intact bilaterally Neck full ROM and supple Chest Wall inspection of chest normal Resp normal respiratory effort and clear to auscultation bilaterally Resp Narrative: Very slight expiratory wheezes and diminished lung sounds bilaterally. Cardio regular rate and regular rhythm GI soft to palpation, non-tender, non-distended and no masses Back/Spine normal ROM and normal to inspection Extremity normal to inspection and full ROM Neuro oriented x3, CN's II-XII intact bilaterally, moves all extremities, no focal motor deficits and no sensory deficits noted Sensorium / Orientation: awake and alert Psych mental status grossly normal and thought process normal Skin no rashes or lesions noted and no wounds <Dr. Joey Dumont MD - Last Filed: 02/21/23 21:22> Physical Exam Const Vital Signs: 02/21/23 18:29 02/21/23 18:28 02/21/23 18:44 Temperature 98.2 F Temperature Source Temporal Pulse Rate 116 H Respiratory Rate 23 H Respiratory Effort Short of Breath Blood Pressure 155/110 H Blood Pressure Mean 125 Pulse Ox 68 85 Oxygen Delivery Method Room Air Nasal Cannula Oxygen Flow Rate (L/min) 3 02/21/23 18:45 02/21/23 20:57 02/21/23 21:05 Temperature 97.5 F L Temperature Source Temporal Pulse Rate 88 84 Respiratory Rate 18 18 Respiratory Effort Blood Pressure 119/82 H 138/60 H Blood Pressure Mean 94 86 Pulse Ox 93 94 93 Oxygen Delivery Method Nasal Cannula Nasal Cannula Nasal Cannula Oxygen Flow Rate (L/min) 5 5 4 02/21/23 21:26 Temperature 97.5 F L Temperature Source Temporal Pulse Rate 88 Respiratory Rate 16 Respiratory Effort Blood Pressure 131/78 H Blood Pressure Mean 95 Pulse Ox 92 Oxygen Delivery Method Nasal Cannula Oxygen Flow Rate (L/min) 4 MDM <MELVINA Mejia - Last Filed: 02/21/23 21:29> [facility] Narrative Medical decision making narrative: Patient presenting today due to shortness of breath which she has had for the past 2 days that has been worsening. She also reports a productive cough and sore throat. Patient arrived at 85% O2 saturation and was placed on 3 L O2. She then was put on 5 L O2 and was 93% on room air. Patient is tachycardic. She does not have any prior history of PE or blood clots, no recent travel, procedures, or immobilization. Labs obtained to rule out leukocytosis, anemia, electrolyte abnormality, and ACS. Lactic acid WNL, troponin WNL. EKG is normal sinus rhythm. Chest x-ray obtained to rule out infiltrate, pneumothorax, pleural effusion, and other abnormality and is negative. Given the negative chest x-ray, CTA of the chest obtained to rule out PE and is negative for PE but does show bilateral groundglass opacities. Patient does have leukocytosis, she will be started on Levaquin and will be admitted to the hospital. She was also given Solu-Medrol and aerosol treatments due to her history of COPD. She is comfortable with plan. I have personally performed a face to face assessment of the patient and have reviewed the NELLIE Note. I performed a substantive portion of the visit including all aspects of the following. My granados findings include: History is increasing shortness of breath with cough over the past couple of days. Patient does have a history of COPD. Patient denies fever or chills. Patient denies increased leg pain, swelling or discoloration. Patient denies rhinorrhea, congestion and sore throat. Exam is remarkable for her being cyanotic with a pulse ox of 68%. HEENT exam is unremarkable. Lungs revealed no obvious wheezing with decreased breath sounds. Expiratory phase is prolonged. Heart is rapid and regular. Lower extremity exam reveals no asymmetry, palpable cords, leg vein distention or tenderness on the distribution deep venous system. Medical Decision Making differential diagnosis includes pneumonia, pneumothorax, congestive heart failure, pulmonary embolus autoimmune disorder Other additions or changes: Patient's white count is noted to be 10.9 thousand with slight shift. Lactate and troponin were normal. Since chest x-ray was interpreted by me and radiologist as negative CTA was obtained which reveals bilateral groundglass opacities which may represent atypical pneumonia versus inflammatory process. For this reason patient was started on levofloxacin since she has allergy to penicillin and cephalosporin which will cover both typical atypical organisms. Because of the history of COPD she was treated with Solu-Medrol and aerosols. The hospitalist was paged admission. Lab Data Labs: Laboratory Results - last 24 hr 02/21/23 16:50 WBC 14.2 H RBC 4.95 Hgb 11.9 L Hct 40.0 MCV 80.8 L MCH 24.0 L MCHC 29.8 L RDW Std Deviation 46.1 H RDW Coeff of Dyana 15.8 H Plt Count 282 MPV 9.9 Immature Gran % (Auto) 0.400 Neut % (Auto) 80.2 H Lymph % (Auto) 9.3 L [place] % (Auto) 7.8 Eos % (Auto) 1.7 Baso % (Auto) 0.6 Absolute Neuts (auto) 11.4 H Absolute Lymphs (auto) 1.32 Nucleated RBC % 0 Sodium 136 Potassium 3.5 Chloride 99 Carbon Dioxide 33.0 H Anion Gap 4 L BUN 15 Creatinine 0.80 Estim Creat Clear Calc 68.26 Est GFR (MDRD) Af Amer 93 Est GFR (MDRD) Non-Af 77 BUN/Creatinine Ratio 18.8 Glucose 108 H Lactic Acid 0.9 Calcium 9.1 Troponin I High Sens 4 ABG Data ABG results: ABG 02/21/23 19:26 Specimen Type ART Sample Site R Radial pH 7.34 L Bicarbonate Actual 31.2 H Total CO2 33 Base Excess 6 H O2 Saturation 94 L ABG pCO2 57.7 H ABG pO2 76 Fran Test Positive O2 Delivery Device Cannula Liter Flow 4.0 Radiography X-Ray: Read by ED Physician and Read by Radiologist Diagnostic Testing: Clinical Impression(s) from Imaging Studies Chest X-Ray 02/21/23 18:49 IMPRESSION: Nonacute portable x-ray examination of the chest. Electronically Signed: Edwin BricenoTreeLeonie Porras, at 19:05 EDT , Chest CTA 02/21/23 19:49 IMPRESSION: 1. No central or segmental pulmonary embolism. 2. Scattered noncalcified nodules with adjacent groundglass opacity more typical of infection/inflammation, rather than neoplasm. Electronically Signed: Edwin Porras ([place]), at 20:43 EDT , EKG Initial EKG: Comments: 89 bpm, normal sinus rhythm, no ST elevation, reviewed and interpreted by attending ED physician <Dr. Joey Dumont MD - Last Filed: 02/21/23 21:22> [facility] Narrative Medical decision making narrative: Patient presenting today due to shortness of breath which she has had for the past 2 days that has been worsening. She also reports a productive cough and sore throat. Patient arrived at 85% O2 saturation and was placed on 3 L O2. She then was put on 5 L O2 and was 93% on room air. Patient is tachycardic. She does not have any prior history of PE or blood clots, no recent travel, procedures, or immobilization. Labs obtained to rule out leukocytosis, anemia, electrolyte abnormality, and ACS. Lactic acid WNL, troponin WNL. EKG is normal sinus rhythm. Chest x-ray obtained to rule out infiltrate, pneumothorax, pleural effusion, and other abnormality and is negative. Given the negative chest x-ray, CTA of the chest obtained to rule out PE. I have personally performed a face to face assessment of the patient and have reviewed the NELLIE Note. I performed a substantive portion of the visit including all aspects of the following. My granados findings include: History is increasing shortness of breath with cough over the past couple of days. Patient does have a history of COPD. Patient denies fever or chills. Patient denies increased leg pain, swelling or discoloration. Patient denies rhinorrhea, congestion and sore throat. Exam is remarkable for her being cyanotic with a pulse ox of 68%. HEENT exam is unremarkable. Lungs revealed no obvious wheezing with decreased breath sounds. Expiratory phase is prolonged. Heart is rapid and regular. Lower extremity exam reveals no asymmetry, palpable cords, leg vein distention or tenderness on the distribution deep venous system. Medical Decision Making differential diagnosis includes pneumonia, pneumothorax, congestive heart failure, pulmonary embolus autoimmune disorder Other additions or changes: Patient's white count is noted to be 10.9 thousand with slight shift. Lactate and troponin were normal. Since chest x-ray was interpreted by me and radiologist as negative CTA was obtained which reveals bilateral groundglass opacities which may represent atypical pneumonia versus inflammatory process. For this reason patient was started on levofloxacin since she has allergy to penicillin and cephalosporin which will cover both typical atypical organisms. Because of the history of COPD she was treated with Solu-Medrol and aerosols. The hospitalist was paged admission. Lab Data Attestation: I reviewed the patient's lab results. Lab results narrative: White count is elevated with shift. There is no bandemia. Patient has mild microcytic. Basic metabolic panel reveals elevated CO2 from baseline which raises concern for hypercapnia. BUN and creatinine are normal with a GFR of 77. Glucose is slightly elevated 108 with a normal CO2 and anion gap. Troponin is normal. Lactate is normal. Labs: Laboratory Results - last 24 hr 02/21/23 16:50 WBC 14.2 H RBC 4.95 Hgb 11.9 L Hct 40.0 MCV 80.8 L MCH 24.0 L MCHC 29.8 L RDW Std Deviation 46.1 H RDW Coeff of Dyana 15.8 H Plt Count 282 MPV 9.9 Immature Gran % (Auto) 0.400 Neut % (Auto) 80.2 H Lymph % (Auto) 9.3 L [place] % (Auto) 7.8 Eos % (Auto) 1.7 Baso % (Auto) 0.6 Absolute Neuts (auto) 11.4 H Absolute Lymphs (auto) 1.32 Nucleated RBC % 0 Sodium 136 Potassium 3.5 Chloride 99 Carbon Dioxide 33.0 H Anion Gap 4 L BUN 15 Creatinine 0.80 Estim Creat Clear Calc 68.26 Est GFR (MDRD) Af Amer 93 Est GFR (MDRD) Non-Af 77 BUN/Creatinine Ratio 18.8 Glucose 108 H Lactic Acid 0.9 Calcium 9.1 Troponin I High Sens 4 ABG Data Attestation: I personally reviewed and interpreted this ABG as follows: Interpretation: ABG reveals a mild acidosis. pH 7.34, bicarb 31.2, total CO2 33, base excess 66, saturation 94% on 4 L. There is also an increased AA gradient. ABG results: ABG 02/21/23 19:26 Specimen Type ART Sample Site R Radial pH 7.34 L Bicarbonate Actual 31.2 H Total CO2 33 Base Excess 6 H O2 Saturation 94 L ABG pCO2 57.7 H ABG pO2 76 Fran Test Positive O2 Delivery Device Cannula Liter Flow 4.0 Radiography Chest X-Ray - ED: 1 View and Read by ED Physician (Portable single view is slightly rotated. Cardiac silhouette size unremarkable. Perihilar region unremarkable. Lung parenchyma is unremarkable. There is no mental effusion, pneumothorax or infiltrate. This is independent reviewed interpreted by me at 07/21/2005.) Diagnostic Testing: Clinical Impression(s) from Imaging Studies Chest X-Ray 02/21/23 18:49 IMPRESSION: Nonacute portable x-ray examination of the chest. Electronically Signed: Edwin Porras ([place]), at 19:05 EDT , Chest CTA 02/21/23 19:49 IMPRESSION: 1. No central or segmental pulmonary embolism. 2. Scattered noncalcified nodules with adjacent groundglass opacity more typical of infection/inflammation, rather than neoplasm. Electronically Signed: Edwin Porras ([place]), at 20:43 EDT , EKG Initial EKG: Attestation: I personally reviewed and interpreted this EKG as follows: Interpretation: Sinus Rhythm (Rate is 89. There is low voltage. OH interval slightly increased at 206 ms. QRS duration 88 ms. QT duration 362 ms. [place] is normal. There is no obvious ischemic changes. The low voltage may be due to body habitus.) <Dr. Joey Dumont MD - Last Filed: 02/21/23 21:22> Critical Care Time Critical Care Time: Yes Critical care time (excluding procedures): 30-74 minutes (31), Including time spent: (History, physical, documentation, review of prior records, independent review of x-ray with interpretation, initiation of therapy,), Discussing w/Patient &/or Family/Supervisor [place], Discussing w/Consultants and Arranging Admission or Transfer Discharge Plan Dx/Rx/DC Orders Clinical Impression: Acute respiratory failure with hypoxia, History of COPD, Hyperlipidemia, Hypertension, Acute interstitial pneumonia, Sinus tachycardia seen on quality assurance monitor chassis Disposition Disposition: Acute Care [facility]
--- NOTE | 2023-02-21 18:49 | RAD_ITS ---
STUDY: X-RAY CHEST REASON FOR EXAM: Female, 62 years old. Hypoxia TECHNIQUE: AP COMPARISON: 04/15/2022 FINDINGS: EKG leads project over the chest. The lungs are clear and expanded. There is no demonstrated pleural abnormality. Normal size heart. Normal mediastinum and shyla. Normal visualized pulmonary arteries. There is atherosclerotic calcification of the aortic arch with tortuosity. There are diffuse degenerative changes of the visualized thoracic spine. Normal visualized ribs, clavicles, and shoulders. There is no demonstrated abnormality of the visualized soft tissue structures of the upper abdomen. RAD/Chest 1 View (Portable) IMPRESSION: Nonacute portable x-ray examination of the chest. Electronically Signed: Edwin Porras (Brooks), at 19:05 EDT ,
[2023-02-21 19:03] LABS: Absolute Lymphocyte Count 1.32 X10^3/uL (0.83-4.51); Absolute Neutrophil Count 11.4 X10^3/uL (2.0-7.7); Basophil# 0.09 X10^3/uL; Basophil% 0.6 % (0-1); Eosinophil# 0.24 X10^3/uL; Eosinophils% 1.7 % (0-5); Hemoglobin 11.9 g/dL (12.0-15.0); Lymphocyte # 1.32 X10^3/ul (0.83-4.51); Lymphocyte % 9.3 % (19-41); Mean Corp Hgb Conc 29.8 g/dL (32-36); Mean Corpuscular Volume 80.8 fL (81-99); Mean Platelet Vol. 9.9 fl (6.2-12.0); Monocyte# 1.11 X10^3/uL; Monocyte% 7.8 % (0-10); NRBC Flagged by Analyzer 0 % (0-5); Neutrophil # 11.35 X10^3/uL (2.7-7.7); Neutrophil % 80.2 % (47-70); Platelet Count 282 K/mm3 (150-450); RBC Distribution Width CV 15.8 % (11.6-14.6); RBC Distribution Width SD 46.1 fl (35.1-43.9); Red Blood Count 4.95 M/mm3 (4.2-5.4); White Blood Count 14.2 K/mm3 (4.4-11.0)
--- NOTE | 2023-02-21 19:10 | EKG12_ITS ---
Test Reason : SOB Blood Pressure : / mmHG Vent. Rate : 089 BPM Atrial Rate : 089 BPM P-R Int : 206 ms QRS Dur : 088 ms QT Int : 362 ms P-R-T Axes : 035 003 039 degrees QTc Int : 440 ms Normal sinus rhythm Low voltage QRS Possible Inferior infarct , age undetermined Abnormal ECG When compared with ECG of 15-APR-2022 00:57, No significant change was found Confirmed by DI DE LEON ([id number]), supervising editor trailer WILLIAM ORTA ([id number]) on 03/03/2023 10:00:05 AM Referred By: Confirmed By:DI DE LEON
[2023-02-21 19:17] LABS: Anion Gap 4 (5-15); BUN 15 mg/dL (7-18); BUN/Creat Ratio 18.8 RATIO (10-20); Calcium,Total 9.1 mg/dL (8.5-10.1); Chloride 99 mmol/L (98-107); EST Glomerular Filtration Rate 77 mL/min (>60); Est Glom Filt Rate - Afr Amer 93 mL/min (>60); Estimated Creatinine Clearance 68.26 ml/min; Glucose 108 mg/dL (74-106); Potassium 3.5 mmol/L (3.5-5.1); Sodium Level 136 mmol/L (136-145)
[2023-02-21 19:32] LABS: Allen Test Positive; Base Excess 6 mmol/L (-2 to +2); Bicarbonate 31.2 mmol/L (22-26); Blood Gas Specimen Type ART; O2 Delivery Device Cannula; PO2 76 mmHG (75-100); SITE R Radial; SO2 94 % (95-99); Total Carbon Dioxide 33 mmol/L; pCO2 57.7 mmHg (35-45); pH 7.34 (7.35-7.45)
[2023-02-21 19:35] LABS: Lactic Acid 0.9 mmol/L (0.4-1.9)
[2023-02-21 19:38] LABS: Troponin-I HS 4 pg/mL (3.0-54.0)
--- NOTE | 2023-02-21 19:49 | CT_ITS ---
STUDY: CTA CHEST REASON FOR EXAM: Female, 62 years old. Hypoxia, normal chest x-ray RADIATION DOSAGE (If Supplied By Facility): CTDIvol = ( 26.91 ) mGy, DLP = ( 555.36 ) mGycm TECHNIQUE: The examination was performed with the intravenous administration of IV 100mL Isovue-370. Post-processing of the angiographic images was performed, with multiplanar reformation and 3D reconstruction. Individualized dose optimization techniques were used for this CT. COMPARISON: None. FINDINGS: Normal enhancement of the main pulmonary artery and right and left pulmonary arteries. Normal enhancement of the bilateral peripheral pulmonary arteries. There is no demonstrated pulmonary embolism. Normal thoracic aorta and visualized great vessels. There is no demonstrated aortic dissection. Normal heart and pericardium. There are calcifications of the coronary arteries. Normal mediastinum. Normal hilar regions. Normal visualized trachea and bronchi. The lungs are well expanded. There are a few scattered noncalcified peribronchial nodules involving the right middle lobe (image 110 series 2), posterior right upper lobe (image 168), and right lower lobe (image 94) as well as the lingula (image 104) and left lower lobe (image 75). Nodules measure up to 1.1 cm (right lower lobe). Normal pleura. Normal chest wall structures. There are degenerative changes of thoracic spine. Normal visualized upper abdomen. CT/CTA Chest W/WO Contrast IMPRESSION: 1. No central or segmental pulmonary embolism. 2. Scattered noncalcified nodules with adjacent groundglass opacity more typical of infection/inflammation, rather than neoplasm. Electronically Signed: Edwin Porras (Brooks), at 20:43 EDT ,
[2023-02-21] MEDS: Albuterol 2.5 MG/3 ML VIAL.NEB. INHALATION (20:52)
[2023-02-21] MEDS: Ipratropium/Albuterol Sulfate 3 ML AMPUL.NEB INHALATION (20:52)
[2023-02-21] MEDS: levoFLOXacin IV 750 MG/150 ML BAG 100 MG IV (21:02)
--- NOTE | 2023-02-21 21:02 | PCM.HP.STD ---
HPI - General General Date of Admission: 02/21/23 Date of Service: 02/21/23 Chief Complaint: Dyspnea, cough. HPI Narrative The patient is a 62 y/o F w/ PMHx: Chronic pain syndrome, Obesity, Asthma/COPD, OA, Seizure disorder, RLS, Tobacco use, Allergic rhinitis, GERD, Hx GI bleed, Depression and Anxiety, HTN, HLD who presents to the [facility] ED on 02/21/23 with history of shortness of breath progressively worsening over the last 48 hours, worse with exertion with decreased oxygenation down into the 80s at home with productive cough of green sputum with a sore throat but no fever, chills, chest pain but given not improving and decreasing saturations prompted ED evaluation. She notes she has been wheezing considerably and its been worsening. Discussed concern over her current appearance and she reports that she recently just transition from the bedside commode back into the bed as she is having increased work of breathing accessory muscle usage and she is amenable to BiPAP trial. Work-up in the ED included T98.2, heart rate 116, BP 155/110, respiratory rate 23, initially 85% on 3 L decreasing down to 68% on room air, improving to 93% on 5 L nasal cannula, CBC with WBC 14.2, hemoglobin 11.9, MCV 80.8, platelet 282 with left shift, ABG with pH 7.34, bicarb 31.2, O2 saturation 94%, PCO2 57.7, PO2 76 performed on 4 L nasal cannula, BMP with carbon oxide 33, glucose 108 otherwise not marked appearing, lactic acid 0.9, troponin 4, chest x-ray with no acute cardiopulmonary findings, CTPA with no scattered or segmental pulmonary emboli, scattered noncalcified nodules with adjacent groundglass opacity more typical of infection/inflammation rather than neoplasm. In the ED patient administered albuterol and DuoNeb therapies, Levaquin 7 and 50 mg IV x1 as well as Solu-Medrol 125 mg IV x1. FOR[facility]LY [facility] Medical History (Updated 02/21/23 @ 21:[address] Myriam Ferro MD) Arthritis Asthma Chronic pain COPD (chronic obstructive pulmonary disease) Cough Depression Epilepsy Gastric reflux GI bleed High cholesterol History of edema Hypertension Leg cramps Lower extremity edema Neuropathy Restless legs Seasonal allergies Seizures Shortness of breath Smoker Sore throat Stasis dermatitis Tobacco abuse Venous insufficiency of both lower extremities Vitamin D deficiency Walker as ambulation aid Wears dentures Wears glasses Home Medications buprenorphine 15 mcg/hour weekly transdermal patch 20 mcg topical TH PAIN 05/23/20 [History Last Taken 02/24/21] Handicap Placard #1 ea 08/13/20 [Rx Last Taken 02/24/21] pregabalin 75 mg capsule 75 mg PO TID nerve pain 10/05/20 [History Last Taken 10/27/22] walker #1 ea 10/05/20 [Rx Last Taken 02/24/21] comp.stocking,thigh,long,x-lrg #4 ea 01/29/21 [Rx Last Taken 02/24/21] baclofen 20 mg tablet 10 mg (1/2 x 20 mg) PO TID PRN Spasms #30 tabs 04/11/21 [Rx Last Taken Unknown] fluticasone propionate 50 mcg/actuation nasal spray,suspension (Flonase Allergy Relief) 2 spray intranasal DAILY PRN allergy symptoms #15.8 mL 09/03/21 [Rx Last Taken Unknown] cetirizine 10 mg tablet (Zyrtec) 10 mg PO DAILY PRN Congestion #90 tabs 03/12/22 [Rx Last Taken Unknown] fenofibrate nanocrystallized 48 mg tablet 48 mg PO DAILY CHOLESTEROL #90 tabs 05/06/22 [Rx Last Taken Unknown] miscellaneous medical supply (Blood Pressure Cuff) #1 ea 05/06/22 [Rx Last Taken Unknown] nystatin 100,000 unit/gram topical powder 1 applic topical BID PRN rash #30 grams 05/06/22 [Rx Last Taken Unknown] buspirone 5 mg tablet 5 mg PO TID DEPRESSION #270 tabs 08/19/22 [Rx Last Taken Unknown] levetiracetam 750 mg tablet 750 mg PO BID #60 tabs 11/19/22 [Rx Last Taken Unknown] mirtazapine 15 mg disintegrating tablet See Rx Instructions .Route .COMPLEX #90 tabs 12/02/22 [Rx Last Taken Unknown] aripiprazole 2 mg tablet 2 mg PO DAILY #30 tabs 12/16/22 [Rx Last Taken Unknown] benztropine 0.5 mg tablet 0.5 mg PO BID #60 tabs 12/16/22 [Rx Last Taken Unknown] budesonide 160 mcg-glycopyr 9 mcg-formot 4.8 mcg/actuation HFA inhaler (Breztri Aerosphere) 2 inh inhalation BID #10.7 grams 12/22/22 [Rx Last Taken Unknown] escitalopram oxalate 20 mg tablet 20 mg PO DAILY DEPRESSION #90 tabs 12/29/22 [Rx Last Taken Unknown] lisinopril 20 mg-hydrochlorothiazide 12.5 mg tablet 1 tab PO DAILY #90 tabs 12/29/22 [Rx Last Taken Unknown] omeprazole 40 mg capsule,delayed release 40 mg PO DAILY GERD #90 caps 02/03/23 [Rx Last Taken Unknown] Allergy/AdvReac Type Severity Reaction Status Date / Time clindamycin Allergy Hives Verified 02/21/23 18:29 aspirin AdvReac Severe Upset Verified 02/21/23 18:29 Stomach Penicillins AdvReac Severe vomiting Verified 02/21/23 18:29 Family History Mother Breast cancer Hypertension Hyperlipemia Cancer melanoma, lyphoma ulcers Father Diabetes Myocardial infarction, Onset Age: 67 Hypertension Depression Sister Depression Hyperlipemia Surgical History H/O: hysterectomy History of ankle surgery History of back surgery History of tonsillectomy Hx of colonoscopy Hx of right knee surgery Social History (Updated 02/21/23 @ 22:[address] Myriam Ferro MD) household members: friend(s) Smoking Status: Current every day smoker tobacco type: cigarettes Smoking packs per day: 1 Smoking cigarettes per day: 20.0 Tobacco: How many years used: 25 second hand exposure: No alcohol intake: never substance use type: does not use what type of physical activity do you participate in: walking frequency: 3-4 times per week dari/worship: Church seatbelt use: sometimes ROS ROS Narrative Admission Review of Systems: CONSTITUTIONAL: No weight loss, fever, chills, + weakness or fatigue. HEENT: Eyes: No visual loss, blurred vision, double vision or yellow sclerae. Ears, Nose, Throat: No hearing loss, sneezing, congestion, runny nose or sore throat. SKIN: No rash or itching, lesions, wounds, + bilateral lower extremity venous stasis skin changes. CARDIOVASCULAR: + chronic edema. No chest pain, chest pressure or chest discomfort, palpitations, orthopnea, syncopal events. RESPIRATORY: + shortness of breath, cough with productive sputum, wheezing. No hemoptysis. GASTROINTESTINAL: No anorexia, nausea, vomiting or diarrhea, abdominal pain, melena, BRBPR. GENITOURINARY: No dysuria, frequency, urgency or retention. NEUROLOGICAL: + Seizure disorder. No headache, dizziness, syncope, paralysis, ataxia, numbness or tingling in the extremities, focal weakness, change in bowel or bladder control. MUSCULOSKELETAL: + muscle, back pain, joint pain or stiffness. HEMATOLOGIC: + anemia. LYMPHATICS: No enlarged nodes. No history of splenectomy. PSYCHIATRIC: + history of depression or anxiety. ENDOCRINOLOGIC: No reports of sweating, cold or heat intolerance. No polyuria or polydipsia. ALLERGIES: + history of asthma, hives, rhinitis. Vital Signs Vital Signs Vital Signs: 02/21/23 18:29 02/21/23 18:28 02/21/23 18:44 Temperature 98.2 F Temperature Source Temporal Pulse Rate 116 H Respiratory Rate 23 H Respiratory Effort Short of Breath Blood Pressure 155/110 H Blood Pressure Mean 125 Pulse Ox 68 85 Oxygen Delivery Method Room Air Nasal Cannula Oxygen Flow Rate (L/min) 3 02/21/23 18:45 02/21/23 20:57 Temperature Temperature Source Pulse Rate 88 Respiratory Rate 18 Respiratory Effort Blood Pressure 119/82 H Blood Pressure Mean 94 Pulse Ox 93 94 Oxygen Delivery Method Nasal Cannula Nasal Cannula Oxygen Flow Rate (L/min) 5 5 Weight Weight: 235 lb 3.732 oz Body Mass Index (BMI) 38.0 Physical Exam Narrative Physical Examination: General: Awake, alert, oriented x 3 and cooperative, seated upright in the ED bed, fatigued, increased work of breathing accessory muscle usage, does appear to be in some distress, recently transitioned from the bedside commode to the ED bed. Skin: Normal color, normal turgor, no icterus, no cyanosis except notable bilateral lower extremity venous stasis skin changes. HEENT: AT/NC, EOMI, PERRLA, dry MM, no carotid bruits or JVD noted; however, thickened neck makes evaluation difficult. Lungs: Diminished, greater bases, diffuse expiratory wheezing, increased work of breathing accessory muscle usage with evidence of some distress with recent transition from bedside commode to the bed likely etiology as well as her acute presentation, no obvious rales or rhonchi. Heart: Currently mildly tachycardic with regular rhythm as patient just transitioned from bedside commode to bed; no gallop, rub audible. Abdomen: Soft, obese, NTTP, distant BS, difficult to discern distention and HSM secondary to habitus. Extremities: No cyanosis, no clubbing, significant venous stasis skin changes as noted, bilateral pedal to proximal knee 3+ pitting edema which she reports is chronic. Neurological: Patient awake, alert, oriented as noted, cognitive function intact; pupils equally reactive to light and accommodation, cranial nerves II-XII grossly normal, moving all 4 extremities, no focal deficits, strength severely global decrease secondary to acute presentation. Psychiatric: Affect appears flat, fatigued, no acute evidence of depressive or anxiety feelings but does have underlying history. Results Lab / Micro Data 02/21/23 16:50 02/21/23 16:50 Labs: Laboratory Results - last 24 hr 02/21/23 16:50: WBC 14.2 H, RBC 4.95, Hgb 11.9 L, Hct 40.0, MCV 80.8 L, MCH 24.0 L, MCHC 29.8 L, RDW Std Deviation 46.1 H, RDW Coeff of Dyana 15.8 H, Plt Count 282, MPV 9.9, Immature Gran % (Auto) 0.400, Neut % (Auto) 80.2 H, Lymph % (Auto) 9.3 L, [place] % (Auto) 7.8, Eos % (Auto) 1.7, Baso % (Auto) 0.6, Absolute Neuts (auto) 11.4 H, Absolute Lymphs (auto) 1.32, Nucleated RBC % 0, Sodium 136, Potassium 3.5, Chloride 99, Carbon Dioxide 33.0 H, Anion Gap 4 L, BUN 15, Creatinine 0.80, Estim Creat Clear Calc 68.26, Est GFR (MDRD) Af Amer 93, Est GFR (MDRD) Non-Af 77, BUN/Creatinine Ratio 18.8, Glucose 108 H, Lactic Acid 0.9, Calcium 9.1, Troponin I High Sens 4 Micro: Microbiology 02/21/23 18:50 Nasal Secretion SARS-CoV-2 & FLU Antigen (Rapid) - Final ABG Data ABG results: ABG 02/21/23 19:26 Specimen Type ART Sample Site R Radial pH 7.34 L Bicarbonate Actual 31.2 H Total CO2 33 Base Excess 6 H O2 Saturation 94 L ABG pCO2 57.7 H ABG pO2 76 Fran Test Positive O2 Delivery Device Cannula Liter Flow 4.0 Radiology Impression Chest X-Ray 02/21/23 18:49 IMPRESSION: Nonacute portable x-ray examination of the chest. Electronically Signed: Edwin Porras (Brooks), at 19:05 EDT , Chest CTA 02/21/23 19:49 IMPRESSION: 1. No central or segmental pulmonary embolism. 2. Scattered noncalcified nodules with adjacent groundglass opacity more typical of infection/inflammation, rather than neoplasm. Electronically Signed: Edwin Porras (Brooks), at 20:43 EDT , Assessment & Plan Assessment/Plan (1) Acute interstitial pneumonia: PLAN: Plan The patient is a 62 y/o F w/ PMHx: Chronic pain syndrome, Obesity, Asthma/COPD, OA, Seizure disorder, RLS, Tobacco use, Allergic rhinitis, GERD, Hx GI bleed, Depression and Anxiety, HTN, HLD who presents to the [facility] ED on 02/21/23 with history of shortness of breath progressively worsening over the last 48 hours, worse with exertion with decreased oxygenation down into the 80s at home with productive cough of green sputum with a sore throat but no fever, chills, chest pain but given not improving and decreasing saturations prompted ED evaluation. #1. Acute Hypoxic and Hypercarbic Respiratory Failure secondary to Acute on Chronic COPD/Asthma exacerbation with suspected Acute Interstitial BL PNA, Community Acquired: Will admit to PCU given current BIPAP needs, will maintain on oxygen with wean as tolerated to room air, continue ATC duonebs, PRN albuterol, IV methylprednisolone, IV Levaquin, HOB, IS parameters, will obtain sputum Cx, full respiratory viral panel, COVID PCR, procalcitonin. #2. Chronic pain syndrome with chronic back pain with chronic neuropathy: Patient from records receives outpatient back injections, we will continue patient home chronic buprenorphine patch, pregabalin as well as home as needed baclofen regimen, encourage frequent positional changes, fall precautions. #3. Anxiety and depression: We will continue patient home mirtazapine, escitalopram, aripiprazole and BuSpar home regimen as well as benztropine. #4. Chronic microcytic anemia: Admission hemoglobin 11.9, MCV 80.8, baseline primarily 11-12, stable, continue to trend. #5. Seizure disorder/epilepsy: We will continue patient home Keppra regimen. #6. Allergic rhinitis: We will continue patient home cetirizine home regimen as well as fluticasone. #7. Hypertension: Continue home regimen including lisinopril, hydrochlorothiazide with hold parameters as needed, PRN hydralazine. #8. Hyperlipidemia: We will continue patient home fenofibrate regimen. #9. Tobacco Abuse: Encouraged cessation, inpatient consultation per RT, NR if desired. #10. DVT prophylaxis: Lovenox. #11. CODE status: Patient ALEXIS is her sister Krysta Green and living will is currently in place. Discussed CODE status at length including difference between FULL code, DNR-CCA and DNR-CC status. Following discussions about the differences in these status, requested Full Code status. Given presentation she is also of note following discussions amenable to BIPAP usage. Advanced Care Planning Face to Face Time: 16 minutes. Charges/Coding Visit Charges Inpatient E&M: 98003 Init Hosp L3 Procedures Hospitalists Procedures: 76014 Advncd Care Plan 30 Min
[2023-02-21] MEDS: MethylPREDNISolone 125 MG/2 ML Vial IV (21:10)
[2023-02-21 22:05] LABS: Procalcitonin 0.06 ng/mL (0.00-0.09)
[2023-02-21] MEDS: 0.9% Normal Saline 1,000 ML 100 ML IV (22:46)
[2023-02-22] VITALS (12 sets, daily range): BP systolic 117–157; BP diastolic 57–90; PULSE 70–89; RESP 12–24; TEMP 31.6–36.9; O2SAT 91–97; BMI 38.4
[2023-02-22 00:43] LABS: M R Staph aureus DNA By PCR Negative (Negative); Probe Check PASS; Specimen Processing Control PASS
[2023-02-22] MEDS: busPIRone 5 MG Tablet PO ×4 (01:04→21:12)
[2023-02-22] MEDS: Benztropine Mesylate 0.5 MG TABLET PO ×3 (01:04→21:12)
[2023-02-22] MEDS: levETIRAcetam 750 MG Tablet PO ×3 (01:04→21:12)
[2023-02-22] MEDS: Pregabalin 75 MG Capsule PO ×3 (05:28→21:12)
[2023-02-22 06:14] LABS: Absolute Lymphocyte Count 0.59 X10^3/uL (0.83-4.51); Absolute Neutrophil Count 9.9 X10^3/uL (2.0-7.7); Basophil# 0.02 X10^3/uL; Basophil% 0.2 % (0-1); Hematocrit 38.4 % (37-47); Lymphocyte # 0.59 X10^3/ul (0.83-4.51); Lymphocyte % 5.5 % (19-41); Mean Corp Hgb Conc 28.6 g/dL (32-36); Mean Corpuscular Volume 83.8 fL (81-99); Mean Platelet Vol. 10.4 fl (6.2-12.0); Monocyte# 0.14 X10^3/uL; Monocyte% 1.3 % (0-10); NRBC Flagged by Analyzer 0 % (0-5); Neutrophil # 9.93 X10^3/uL (2.7-7.7); Neutrophil % 92.5 % (47-70); POSITIVE DIFFERENTIAL YES; Platelet Count 245 K/mm3 (150-450); RBC Distribution Width CV 15.6 % (11.6-14.6); RBC Distribution Width SD 47.1 fl (35.1-43.9); Red Blood Count 4.58 M/mm3 (4.2-5.4); White Blood Count 10.7 K/mm3 (4.4-11.0)
[2023-02-22 06:44] LABS: ALB/GLOB Ratio 0.7 RATIO (0.9-2.4); AST(SGOT) 12 U/L (15-37); Alanine Aminotransfer ALT/SGPT 22 U/L (13-56); Albumin, Serum 2.6 g/dL (3.2-5.0); Alkaline Phosphatase 63 U/L (45-117); Anion Gap 3 (5-15); BUN 13 mg/dL (7-18); BUN/Creat Ratio 19.1 RATIO (10-20); Calcium,Total 8.7 mg/dL (8.5-10.1); Chloride 99 mmol/L (98-107); Creatinine, Serum 0.68 mg/dL (0.55-1.02); EST Glomerular Filtration Rate 93 mL/min (>60); Est Glom Filt Rate - Afr Amer 113 mL/min (>60); Globulin 3.6 g/dL (2.2-4.2); Glucose 136 mg/dL (74-106); Protein, Total 6.2 g/dL (6.4-8.2); Sodium Level 135 mmol/L (136-145)
[2023-02-22 06:47] LABS: Differential Indicated SCAN CRITERIA MET
[2023-02-22] MEDS: Ipratropium/Albuterol Sulfate 3 ML AMPUL.NEB INHALATION ×4 (06:56→19:11)
[2023-02-22 06:59] LABS: Anisocytosis 1+
[2023-02-22] MEDS: Fenofibrate 48 MG Tablet PO (08:38)
[2023-02-22] MEDS: Pantoprazole Sodium 40 MG Tablet PO (08:39)
[2023-02-22] MEDS: Escitalopram Oxalate 20 MG Tablet PO (08:40)
[2023-02-22] MEDS: Lisinopril 20 MG Tablet PO (08:40)
[2023-02-22] MEDS: hydroCHLOROthiazide 12.5mg 12.5 MG PO (08:41)
[2023-02-22] MEDS: ARIPiprazole 2 MG Tablet PO (08:41)
[2023-02-22] MEDS: Nystatin Powder 15gm Bottle 1 APPLIC TOPICAL ×2 (08:53→21:15)
[2023-02-22] MEDS: Enoxaparin 40 MG/0.4 ML Syringe SC (08:53)
[2023-02-22] MEDS: Methylprednisolone Sod Succ 40 MG/ML VIAL IV (09:10)
[2023-02-22] MEDS: Ensure Plus High Protein 120 ML LIQUID PO ×2 (09:11→11:52)
[2023-02-22] MEDS: Baclofen 10 MG Tablet PO ×3 (09:11→21:12)
[2023-02-22] MEDS: 0.9% Saline Lock 10 ML Syringe IV (09:11)
[2023-02-22] MEDS: 0.9% Normal Saline 1,000 ML 100 ML IV (11:29)
[2023-02-22 12:41] LABS: Bedside Glucose 206 mg/dL (74-106)
--- NOTE | 2023-02-22 15:02 | PN.HOSP_ITS ---
Reason for Visit Reason for Visit: Diagnoses Interstitial pulmonary disease, unspecified (02/21/23) Subjective Subjective Patient seen at bedside. Breathing fairly comfortably on 6 L nasal cannula on my exam, only mild increased work of breathing noted. Conversing normally. Has known history of COPD but has never had a COPD exacerbation. She is not on home oxygen. Lives in an independent living facility and states that several people she lives near have had minor upper respiratory infections recently. Patient is a current smoker, smokes about 1 pack/day. Nicotine withdrawal symptoms are well controlled with the nicotine patch in place. Patient denies any fevers or chills. She denies any pain. No other acute concerns. Objective Data Objective Data Vital Signs: Vital Signs Temp Pulse Resp BP Pulse Ox O2 Del Method O2 Flow Rate 98.5 F 81 20 H 124/79 H 93 Nasal Cannula 6 02/22/23 11:05 02/22/23 11:05 02/22/23 11:05 02/22/23 11:05 02/22/23 11:05 02/22/23 11:05 02/22/23 11:05 FiO2 40 02/22/23 06:59 Oxygen Flow Rate (L/min) 6 Oxygen Delivery Method Nasal Cannula Weight: 107.9 kg Body Mass Index (BMI) 38.4 Intake & Output: Intake and Output for Last 24 Hours 02/20/23 02/21/23 02/22/23 23:59 23:59 23:59 Intake Total 250 / 250 1360 / 1360 Output Total 100 / 100 Balance 250 / 250 1260 / 1260 Lab / Micro Data Attestation: I reviewed the patient's lab results. 02/22/23 05:28 02/22/23 05:28 Labs: Laboratory Results - last 24 hr 02/21/23 16:50: WBC 14.2 H, RBC 4.95, Hgb 11.9 L, Hct 40.0, MCV 80.8 L, MCH 24.0 L, MCHC 29.8 L, RDW Std Deviation 46.1 H, RDW Coeff of Dyana 15.8 H, Plt Count 282, MPV 9.9, Immature Gran % (Auto) 0.400, Neut % (Auto) 80.2 H, Lymph % (Auto) 9.3 L, [place] % (Auto) 7.8, Eos % (Auto) 1.7, Baso % (Auto) 0.6, Absolute Neuts (auto) 11.4 H, Absolute Lymphs (auto) 1.32, Nucleated RBC % 0, Sodium 136, Potassium 3.5, Chloride 99, Carbon Dioxide 33.0 H, Anion Gap 4 L, BUN 15, Creatinine 0.80, Estim Creat Clear Calc 68.26, Est GFR (MDRD) Af Amer 93, Est GFR (MDRD) Non-Af 77, BUN/Creatinine Ratio 18.8, Glucose 108 H, Lactic Acid 0.9, Calcium 9.1, Troponin I High Sens 4 02/21/23 21:20: Procalcitonin 0.06 02/21/23 23:15: MRSA (PCR) Negative 02/22/23 05:28: WBC 10.7, RBC 4.58, Hgb 11.0 L, Hct 38.4, MCV 83.8, MCH 24.0 L, MCHC 28.6 L, RDW Std Deviation 47.1 H, RDW Coeff of Dyana 15.6 H, Plt Count 245, MPV 10.4, Immature Gran % (Auto) 0.500, Neut % (Auto) 92.5 H, Lymph % (Auto) 5.5 L, [place] % (Auto) 1.3, Eos % (Auto) 0.0, Baso % (Auto) 0.2, Absolute Neuts (auto) 9.9 H, Absolute Lymphs (auto) 0.59 L, Nucleated RBC % 0, Anisocytosis 1+, Sodium 135 L, Potassium 4.0, Chloride 99, Carbon Dioxide 33.0 H, Anion Gap 3 L, BUN 13, Creatinine 0.68, Estim Creat Clear Calc 80.30, Est GFR (MDRD) Af Amer 113, Est GFR (MDRD) Non-Af 93, BUN/Creatinine Ratio 19.1, Glucose 136 H, Calcium 8.7, Total Bilirubin 0.30, AST 12 L, ALT 22, Alkaline Phosphatase 63, Total Protein 6.2 L, Albumin 2.6 L, Globulin 3.6, Albumin/Globulin Ratio 0.7 L 02/22/23 11:51: POC Glucose 206 H Micro: Microbiology 02/22/23 11:30 Urine, Random Legionella Antigen - Final 02/22/23 11:30 Urine, Random Streptococcus pneumoniae Antigen (M - Final 02/22/23 11:30 Sputum, Expectorated/Coughed Gram Stain - Preliminary 02/21/23 21:10 Mucosa - Nasopharyngeal Coronavirus COVID-19 PCR - Final 02/21/23 21:10 Mucosa - Nasopharyngeal Respiratory Panel (PCR) - Final 02/21/23 18:50 Nasal Secretion SARS-CoV-2 & FLU Antigen (Rapid) - Final ABG Data ABG results: ABG 02/21/23 19:26 Specimen Type ART Sample Site R Radial pH 7.34 L Bicarbonate Actual 31.2 H Total CO2 33 Base Excess 6 H O2 Saturation 94 L ABG pCO2 57.7 H ABG pO2 76 Fran Test Positive O2 Delivery Device Cannula Liter Flow 4.0 Radiography Diagnostic Testing: Radiology Impression Chest X-Ray 02/21/23 18:49 IMPRESSION: Nonacute portable x-ray examination of the chest. Electronically Signed: Edwin BricenorTeeLeonie Porras, at 19:05 EDT , Chest CTA 02/21/23 19:49 IMPRESSION: 1. No central or segmental pulmonary embolism. 2. Scattered noncalcified nodules with adjacent groundglass opacity more typical of infection/inflammation, rather than neoplasm. Electronically Signed: Edwin Porras (Brooks), at 20:43 EDT , Physical Exam Const alert and oriented x3 Constitutional Narrative: Satting well on 6 L nasal cannula, mild increased work of breathing noted, conversing normally, no conversational dyspnea noted. Obese. Laying comfortably in bed. General Appearance: cooperative and comfortable HEENT normocephalic, head/scalp atraumatic, hearing grossly normal bilaterally, nasal mucous membranes and turbinates normal and moist oral mucous membranes Eyes PERRL, EOMs intact bilaterally and conjunctivae normal Neck full ROM, no lymphadenopathy and supple Lymph Lymphatic: no lymphadenopathy noted Chest inspection of chest normal Resp Resp Narrative: Mildly decreased air movement throughout bilaterally. Mild wheezing noted in upper airways. No rales or rhonchi. Satting in low 90s on 6 L nasal cannula. Only mildly increased work of breathing noted. Cardio regular rate, regular rhythm, no murmurs and peripheral pulses 2+ throughout GI normal to inspection, nondistended, normoactive bowel sounds, soft to palpation, non-tender and non-distended Back/Spine normal ROM Extremity normal to inspection, full ROM and no pedal edema Skin no rashes or lesions noted Psych mental status grossly normal Assessment & Plan Assessment/Plan (1) COPD with acute exacerbation: PLAN: Plan Patient is a 62-year-old female with history significant for COPD not on home O2, current smoker, chronic pain, anxiety/depression, hypertension, hyperlipidemia and seizure disorder who presented to [facility] on 02/21 with worsening shortness of breath. 1. Acute exacerbation of COPD -Suspected secondary to upper respiratory infection. Satting in the 60s to 70s on admission, required CPAP for several hours for improvement. Now stable on 6 L nasal cannula. Not on home oxygen at baseline. Has never had an acute exacerbation of COPD before. Respiratory, COVID, rapid flu negative. Urine a ntigens negative. Sputum culture pending. Given IV methylprednisone 125 mg x 1 in the ED. Will switch to prednisone 40 mg daily and complete 5-day course. Will complete 5-day course of Levaquin. Continue scheduled IV DuoNebs. Continue home long-acting inhalers. PT/OT consulted for therapy rec ommendations. 2. Chronic pain syndrome -From records, received outpatient back injections. Continue home chronic buprenorphine patch, pregabalin, as needed baclofen. 3. Anxiety and depression -Continue home mirtazapine, escitalopram, aripiprazole, BuSpar and benztropine. 4. Hypertension -Continue home lisinopril and hydrochlorothiazide. 5. Seizure disorder -Continue home Keppra. 6. Chronic microcytic anemia -Baseline hemoglobin 11-12. Hemoglobin 11.9 on admission. Stable, no need to monitor. 7. Tobacco use disorder -Current smoker, about 1 pack/day. Nicotine patch ordered. Encouraged cessation. DVT prophylaxis: Lovenox CODE STATUS: Full code, verified Expected disposition: Home, 2 to 3 days. Lives alone in independent living, at baseline is able to do everything for herself. PT/OT following as above. Total clinical time spent by myself addressing the patient's medical issues, reviewing all the data, and collaborating with patient's care team: 55 minutes. Charges/Coding Visit Charges Inpatient E&M: 35307 Subs Hosp L2
[2023-02-22] MEDS: guaiFENesin 10 ML UDC (200MG/10ML) 20 ML PO (19:00)
[2023-02-22] MEDS: Acetaminophen 325 MG Tablet 650 MG PO (19:57)
[2023-02-22] MEDS: levoFLOXacin IV 750 MG/150 ML BAG 100 MG IV (21:08)
[2023-02-22] MEDS: Mirtazapine 15 MG Tablet PO (21:12)
[2023-02-23] VITALS (11 sets, daily range): BP systolic 102–132; BP diastolic 55–75; PULSE 60–69; RESP 12–22; TEMP 35.9–36.9; O2SAT 93–99; BMI 38.7
[2023-02-23] MEDS: Acetaminophen 325 MG Tablet 650 MG PO ×3 (03:26→22:05)
[2023-02-23] MEDS: Baclofen 10 MG Tablet PO ×3 (05:20→22:07)
[2023-02-23] MEDS: Pregabalin 75 MG Capsule PO ×3 (05:20→22:05)
[2023-02-23] MEDS: busPIRone 5 MG Tablet PO ×3 (05:20→22:07)
[2023-02-23] MEDS: Ipratropium/Albuterol Sulfate 3 ML AMPUL.NEB INHALATION ×3 (07:13→19:16)
[2023-02-23] MEDS: hydroCHLOROthiazide 12.5mg 12.5 MG PO (10:35)
[2023-02-23] MEDS: ARIPiprazole 2 MG Tablet PO (10:35)
[2023-02-23] MEDS: Benztropine Mesylate 0.5 MG TABLET PO ×2 (10:35→22:09)
[2023-02-23] MEDS: Escitalopram Oxalate 20 MG Tablet PO (10:36)
[2023-02-23] MEDS: Pantoprazole Sodium 40 MG Tablet PO (10:36)
[2023-02-23] MEDS: levETIRAcetam 750 MG Tablet PO ×2 (10:36→22:09)
[2023-02-23] MEDS: Nystatin Powder 15gm Bottle 1 APPLIC TOPICAL ×2 (10:36→22:07)
[2023-02-23] MEDS: Lisinopril 20 MG Tablet PO (10:37)
[2023-02-23] MEDS: Fenofibrate 48 MG Tablet PO (10:37)
[2023-02-23] MEDS: predniSONE 20 MG Tablet 40 MG PO (11:01)
[2023-02-23] MEDS: Enoxaparin 40 MG/0.4 ML Syringe SC (11:02)
--- NOTE | 2023-02-23 12:11 | CASEMGMT ---
RN CM Face to Face with patient for initial transition planning/care coordination assessment. RN CM introduced self and role at [facility]. Patient sitting in chair, alert and oriented. Patient willing to participate in assessment and is able to answer all questions appropriately. Care providers, pharmacy, and demographics verified. Patient wishes to discharge home, denies need for home health at this time. Patient states she has no further needs or concerns at this time. CM to follow for discharge planning needs that may arise. PCP: Rosalia Specialists: Colt, pain; Maryan Welsh, refractory bricklayer; Nargis, neurologist Preferred Pharmacy: [facility]; [facility] [place] Insurance: [employer] Prescription Benefit: yes Living Will/HPOA: yes, sister Amelia Green LNOK: sister Living Arrangements: Patient lives in a 3rd floor apartment with elevator to enter. Patient states she is independent at home. Transportation: self, friend/neighbor DME/HHC: Patient has shower chair, rollator, and pulse ox at home. Patient has been to [facility] in the past. Patient has had [facility] in the past. Patient prefers [facility] for DME, will monitor for home oxygen. Disposition Plan: Patient to discharge home with follow-up plans in place. Krysta ALY, RN, CM
--- NOTE | 2023-02-23 14:55 | PCM.PN.HOSP ---
Reason for Visit Reason for Visit: Diagnoses Chronic obstructive pulmonary disease with (acute) exacerbation (02/21/23) Interstitial pulmonary disease, unspecified (02/21/23) Subjective Subjective Patient seen at bedside this morning. Sitting comfortably in bedside chair, conversing normally, no acute distress. Satting in the mid 90s on 6 L nasal cannula. Denies any shortness of breath. Has not gotten up out of the chair since yesterday. Denies any sputum production. States she feels significantly better than on admission. Denies any fevers or chills. No other acute concerns. Objective Data Objective Data Vital Signs: Vital Signs Temp Pulse Resp BP Pulse Ox O2 Del Method O2 Flow Rate 96.7 F L 60 18 108/55 L 99 Nasal Cannula 4 02/23/23 10:13 02/23/23 14:12 02/23/23 14:12 02/23/23 10:13 02/23/23 10:13 02/23/23 10:30 02/23/23 10:30 FiO2 40 02/23/23 05:03 Oxygen Flow Rate (L/min) 4 Oxygen Delivery Method Nasal Cannula Weight: 108.9 kg Body Mass Index (BMI) 38.7 Intake & Output: Intake and Output for Last 24 Hours 02/21/23 02/22/23 02/23/23 23:59 23:59 23:59 Intake Total 250 / 250 2371.67 / 2611.67 480 / 480 Output Total 500 / 500 Balance 250 / 250 1871.67 / 2111.67 480 / 480 Lab / Micro Data Attestation: I reviewed the patient's lab results. 02/22/23 05:28 02/22/23 05:28 Micro: Microbiology 02/22/23 11:30 Sputum, Expectorated/Coughed Gram Stain - Final 02/22/23 11:30 Sputum, Expectorated/Coughed Respiratory Culture - Preliminary Appears to be normal respiratory gisell. Further studies to follow. 02/22/23 11:30 Urine, Random Legionella Antigen - Final 02/22/23 11:30 Urine, Random Streptococcus pneumoniae Antigen (M - Final 02/21/23 21:10 Mucosa - Nasopharyngeal Coronavirus COVID-19 PCR - Final 02/21/23 21:10 Mucosa - Nasopharyngeal Respiratory Panel (PCR) - Final 02/21/23 18:50 Nasal Secretion SARS-CoV-2 & FLU Antigen (Rapid) - Final Physical Exam Const alert and oriented x3 Constitutional Narrative: Pleasant female, sitting comfortably in bedside chair, conversing normally, no acute distress. Satting well on 6 L nasal cannula, no increased work of breathing noted. General Appearance: cooperative and comfortable HEENT normocephalic, head/scalp atraumatic, hearing grossly normal bilaterally, nasal mucous membranes and turbinates normal and moist oral mucous membranes Eyes PERRL, EOMs intact bilaterally and conjunctivae normal Neck full ROM, no lymphadenopathy and supple Lymph Lymphatic: no lymphadenopathy noted Chest inspection of chest normal Resp Resp Narrative: Mildly decreased air movement throughout bilaterally. No wheezing noted in upper airways today. No rales or rhonchi. Cardio regular rate, regular rhythm, no murmurs and peripheral pulses 2+ throughout GI normal to inspection, nondistended, normoactive bowel sounds, soft to palpation, non-tender and non-distended Back/Spine normal ROM Extremity normal to inspection, full ROM and no pedal edema Skin no rashes or lesions noted Psych mental status grossly normal Assessment & Plan Assessment/Plan (1) COPD with acute exacerbation: PLAN: Plan Patient is a 62-year-old female with history significant for COPD not on home O2, current smoker, chronic pain, anxiety/depression, hypertension, hyperlipidemia and seizure disorder who presented to [facility] on 02/21 with worsening shortness of breath. 1. Acute exacerbation of COPD Suspected secondary to upper respiratory infection. Satting in the 60s to 70s on admission, required CPAP for several hours for improvement, then transitioned to 6 L nasal cannula. Not on home oxygen at baseline. Has never had an acute exacerbation of COPD before. Respiratory, COVID, rapid flu negative. Urine antigens negative. Sputum culture with no growth to date. Given IV methylprednisone 125 mg x 1 in the ED. -Continue prednisone 40 mg daily and Levaquin each for 5-day courses, stop date 02/26. Continue albuterol as needed. Continue home long-acting inhalers. PT/OT consult per therapy recommendations. 2. Chronic pain syndrome -From records, received outpatient back injections. Continue home chronic buprenorphine patch, pregabalin, as needed baclofen. 3. Anxiety and depression -Continue home mirtazapine, escitalopram, aripiprazole, BuSpar and benztropine. 4. Hypertension -Continue home lisinopril and hydrochlorothiazide. 5. Seizure disorder -Continue home Keppra. 6. Chronic microcytic anemia -Baseline hemoglobin 11-12. Hemoglobin 11.9 on admission. Stable, no need to monitor. 7. Tobacco use disorder -Current smoker, about 1 pack/day. Nicotine patch ordered. Encouraged cessation. DVT prophylaxis: Lovenox CODE STATUS: Full code, verified Expected disposition: Home, 2 to 3 days. Lives alone in independent living, at baseline is able to do everything for herself. Will likely need home O2 evaluation prior to discharge. Total clinical time spent by myself addressing the patient's medical issues, reviewing all the data, and collaborating with patient's care team: 35 minutes. Charges/Coding Visit Charges Inpatient E&M: 29899 Subs Hosp L2
[2023-02-23] MEDS: Mirtazapine 15 MG Tablet PO (22:08)
[2023-02-23] MEDS: levoFLOXacin IV 750 MG/150 ML BAG 100 MG IV (22:10)
[2023-02-24] VITALS (10 sets, daily range): BP systolic 121–136; BP diastolic 75–101; PULSE 56–68; RESP 16–18; TEMP 35.8–36.6; O2SAT 87–100; BMI 39.4
[2023-02-24] MEDS: Acetaminophen 325 MG Tablet 650 MG PO ×2 (03:01→09:57)
[2023-02-24] MEDS: Pregabalin 75 MG Capsule PO ×2 (05:08→14:19)
[2023-02-24] MEDS: busPIRone 5 MG Tablet PO ×2 (05:08→14:19)
[2023-02-24] MEDS: Ipratropium/Albuterol Sulfate 3 ML AMPUL.NEB INHALATION ×3 (06:52→15:07)
[2023-02-24] MEDS: Nystatin Powder 15gm Bottle 1 APPLIC TOPICAL (09:54)
[2023-02-24] MEDS: Enoxaparin 40 MG/0.4 ML Syringe SC (09:54)
[2023-02-24] MEDS: predniSONE 20 MG Tablet 40 MG PO (09:55)
[2023-02-24] MEDS: ARIPiprazole 2 MG Tablet PO (09:55)
[2023-02-24] MEDS: Benztropine Mesylate 0.5 MG TABLET PO (09:55)
[2023-02-24] MEDS: hydroCHLOROthiazide 12.5mg 12.5 MG PO (09:56)
[2023-02-24] MEDS: Escitalopram Oxalate 20 MG Tablet PO (09:56)
[2023-02-24] MEDS: levETIRAcetam 750 MG Tablet PO (09:56)
[2023-02-24] MEDS: Pantoprazole Sodium 40 MG Tablet PO (09:57)
[2023-02-24] MEDS: Baclofen 10 MG Tablet PO (09:57)
[2023-02-24] MEDS: Lisinopril 20 MG Tablet PO (09:57)
[2023-02-24] MEDS: Fenofibrate 48 MG Tablet PO (09:57)
--- NOTE | 2023-02-24 13:52 | PCM.DC ---
Discharge Instructions Diet Discharge Diet: No restrictions Activity Discharge Activity: Return to Normal Activity Weight Bearing Status: Full weight bearing Follow Up Care Please Follow Up With: Nick Lindsey MD When: as needed Test Results: Test results from this visit will be discussed in further detail at your follow-up appointment, if applicable. Pending Tests Upon Discharge: none Discharge Plan Admission Admit Date/Time: 02/21/23 21:03 Attending Provider: Jered Alejandra Primary Care Provider: Nick Lindsey Consulting Providers: Myriam Ferro Instructions Additional Instructions / Restrictions: Please complete 5-day course of prednisone and antibiotics as we discussed. Your goal oxygen saturation is 88 to 94%; please use a pulse oximeter around the home 3-4 times per day to check your oxygen saturation. If it is below 88%, use supplemental oxygen as needed. Follow-up with your primary care doctor and your insurance case manager as needed. Discharge Orders/Prescriptions Prescriptions: New prednisone 20 mg Tablet 40 mg PO BREAKFAST 2 Days Qty: 4 0RF levofloxacin 750 mg Tablet 750 mg PO 2200 2 Days Qty: 2 0RF Continued pregabalin 75 mg capsule 75 mg PO TID Patient Comments: take 1 capsule by mouth three times a day (DME) comp.stocking,thigh,long,x-lrg Misc See Rx Instructions .ROUTE .MEDSUPPLY Qty: 4 2RF Rx Instructions: As directed fluticasone propionate [Flonase Allergy Relief] 50 mcg/actuation spray,suspension 2 spray INTRANASAL DAILY PRN (Reason: allergy symptoms) Qty: 15.8 1RF Rx Instructions: administer into each nostril cetirizine [Zyrtec] 10 mg tablet 10 mg PO DAILY PRN (Reason: Congestion) Qty: 90 2RF nystatin 100,000 unit/gram powder 1 applic topical BID PRN (Reason: rash) Qty: 30 0RF fenofibrate nanocrystallized 48 mg tablet 48 mg PO DAILY Qty: 90 3RF (DME) Blood Pressure Cuff Misc See Rx Instructions .Route Qty: 1 0RF Rx Instructions: Check blood pressure twice a day levetiracetam 750 mg tablet 750 mg PO BID Qty: 60 5RF aripiprazole 2 mg tablet 2 mg PO DAILY Qty: 30 3RF benztropine 0.5 mg tablet 0.5 mg PO BID Qty: 60 4RF buprenorphine 1 EACH patch weekly 20 mcg TOPICAL TH MDD thurs (DME) Handicap Placard See Rx Instructions .ROUTE .MEDSUPPLY Qty: 1 0RF Rx Instructions: As directed, length of time 3 years (DME) walker Misc See Rx Instructions .ROUTE .MEDSUPPLY Qty: 1 0RF Rx Instructions: rollator with wheels and a seat baclofen 20 mg tablet 10 mg PO TID PRN (Reason: Spasms) Qty: 30 1RF buspirone 5 mg tablet 5 mg PO TID Qty: 270 1RF mirtazapine 15 mg tablet,disintegrating See Rx Instructions .ROUTE .COMPLEX Qty: 90 1RF Dose Instruction: TAKE 1 TABLET BY MOUTH AT BEDTIME depression Rx Instructions: TAKE 1 TABLET BY MOUTH AT BEDTIME depression Abriltri Aerosphere 160-9-4.8 mcg/actuation HFA aerosol inhaler 2 inh inhalation BID Qty: 10.7 2RF escitalopram oxalate 20 mg tablet 20 mg PO DAILY Qty: 90 0RF lisinopril-hydrochlorothiazide 20-12.5 mg tablet 1 tab PO DAILY Qty: 90 0RF omeprazole 40 mg capsule,delayed release(DR/EC) 40 mg PO DAILY Qty: 90 0RF Referrals / Follow Up: Nick Lindsey MD [Primary Care Provider] - Disposition Disposition (needs filled in before D/C Order can be placed): Home, Self Care
--- NOTE | 2023-02-24 14:02 | DS.PCM_ITS ---
Providers Date of Admission: 02/21/23 Date of Discharge: 02/24/23 Primary Care Physician: Dr. Nick Lindsey MD Reason For Visit: PNA, COPD EXACERBATION RESP FAILURE Diagnosis Discharge Diagnosis (1) COPD with acute exacerbation: Status: Chronic Code(s): J44.1 - Chronic obstructive pulmonary disease with (acute) exacerbation Medications at Discharge Home Medications buprenorphine 15 mcg/hour weekly transdermal patch 20 mcg topical TH PAIN 05/23/20 Handicap Placard #1 ea 08/13/20 pregabalin 75 mg capsule 75 mg PO TID nerve pain 10/05/20 walker #1 ea 10/05/20 comp.stocking,thigh,long,x-lrg #4 ea 01/29/21 baclofen 20 mg tablet 10 mg (1/2 x 20 mg) PO TID PRN Spasms #30 tabs 04/11/21 fluticasone propionate 50 mcg/actuation nasal spray,suspension (Flonase Allergy Relief) 2 spray intranasal DAILY PRN allergy symptoms #15.8 mL 09/03/21 fenofibrate nanocrystallized 48 mg tablet 48 mg PO DAILY CHOLESTEROL #90 tabs 05/06/22 miscellaneous medical supply (Blood Pressure Cuff) #1 ea 05/06/22 nystatin 100,000 unit/gram topical powder 1 applic topical BID PRN rash #30 grams 05/06/22 levetiracetam 750 mg tablet 750 mg PO BID seizure #60 tabs 11/19/22 mirtazapine 15 mg disintegrating tablet See Rx Instructions .Route .COMPLEX #90 tabs 12/02/22 aripiprazole 2 mg tablet 2 mg PO DAILY mental health #30 tabs 12/16/22 omeprazole 40 mg capsule,delayed release 40 mg PO DAILY GERD #90 caps 02/03/23 buspirone 5 mg tablet 5 mg PO TID #270 tabs 03/04/23 compress.stocking,knee,reg,lrg #2 ea 03/19/23 budesonide 160 mcg-glycopyr 9 mcg-formot 4.8 mcg/actuation HFA inhaler (Breztri Aerosphere) 2 inh inhalation BID breathing #10.7 grams 03/24/23 cetirizine 10 mg tablet (Zyrtec) 10 mg PO DAILY PRN Congestion #90 tabs 03/24/23 escitalopram oxalate 20 mg tablet 20 mg PO DAILY DEPRESSION #90 tabs 03/30/23 lisinopril 20 mg-hydrochlorothiazide 12.5 mg tablet 1 tab PO DAILY blood pressure #90 tabs 03/30/23 benztropine 0.5 mg tablet 0.5 mg PO BID prevent muscle spasms #180 tabs 04/01/23 Hospital Course Procedures - (Chest x-ray, CTA chest) Summary of Care Provided Minutes Spent on Discharge: 38 Hospital Course: Patient is a 62-year-old female with history significant for COPD not on home O2, current smoker, chronic pain, anxiety/depression, hypertension, hyperlipidemia and seizure disorder who presented to [facility] on 02/21 with worsening shortness of breath. Hospital course was notable low. Acute exacerbation of COPD: Suspected secondary to upper respiratory infection. Satting in the 60s to 70s on admission, required CPAP for several hours for improvement, then transitioned to 6 L nasal cannula. Not on home oxygen at baseline. Has never had an acute exacerbation of COPD before. Respiratory, COVID, rapid flu negative. Urine antigens negative. Sputum culture with no growth to date. Treated with prednisone and Levaquin during admission, discharged with plan to complete 5-day courses with stop date of 02/26. Initially received scheduled DuoNeb treatments with improvement, then transitioned to DuoNeb treatments as needed. Continued home long-acting inhalers. Patient did require supplemental oxygen on discharge, case management assisted and providing patient with home oxygen on discharge. Discharge diagnoses: ? Acute exacerbation of COPD with acute respiratory failure requiring home o xygen ? Chronic pain syndrome ? Anxiety and depression ? Hypertension ? Seizure disorder ? Chronic anemia ? Tobacco use disorder Total clinical time spent by myself addressing the patient's discharge needs: 38 minutes. Physical Exam Const alert and oriented x3 Constitutional Narrative: Pleasant female, sitting comfortably in bedside chair, conversing normally, no acute distress. Satting well on 4 L nasal cannula, no increased work of breathing noted. General Appearance: cooperative and comfortable HEENT normocephalic, head/scalp atraumatic, hearing grossly normal bilaterally, nasal mucous membranes and turbinates normal and moist oral mucous membranes Eyes PERRL, EOMs intact bilaterally and conjunctivae normal Neck full ROM, no lymphadenopathy and supple Lymph Lymphatic: no lymphadenopathy noted Chest inspection of chest normal Resp Resp Narrative: Mildly decreased air movement throughout bilaterally. No wheezing noted in upper airways today. No rales or rhonchi. Cardio regular rate, regular rhythm, no murmurs and peripheral pulses 2+ throughout GI normal to inspection, nondistended, normoactive bowel sounds, soft to palpation, non-tender and non-distended Back/Spine normal ROM Extremity normal to inspection, full ROM and no pedal edema Skin no rashes or lesions noted Psych mental status grossly normal Weight / BMI Weight Weight: 110.8 kg Body Mass Index (BMI) 39.4 ABG / Lab / Microbiology Data 02/22/23 05:28 02/22/23 05:28 Microbiology: Microbiology 02/22/23 11:30 Sputum, Expectorated/Coughed Gram Stain - Final 02/22/23 11:30 Sputum, Expectorated/Coughed Respiratory Culture - Final Presumptive C albicans 02/22/23 11:30 Urine, Random Legionella Antigen - Final 02/22/23 11:30 Urine, Random Streptococcus pneumoniae Antigen (M - Final 02/21/23 21:10 Mucosa - Nasopharyngeal Coronavirus COVID-19 PCR - Final 02/21/23 21:10 Mucosa - Nasopharyngeal Respiratory Panel (PCR) - Final 02/21/23 18:50 Nasal Secretion SARS-CoV-2 & FLU Antigen (Rapid) - Final D/C Instructions Discharge Diet: No restrictions Weight Bearing Status: Full weight bearing Pending Tests Upon Discharge: none Please Follow Up With: Nick Lindsey MD When: as needed Meaningful Use Info Meaningful Use Diagnoses (Choose all that apply): None applicable Discharge Plan Admission Admit Date/Time: 02/21/23 21:03 Attending Provider: Jered Alejandra Primary Care Provider: Nick Lindsey Consulting Providers: Myriam Ferro Instructions Additional Instructions / Restrictions: Please complete 5-day course of prednisone and antibiotics as we discussed. Your goal oxygen saturation is 88 to 94%; please use a pulse oximeter around the home 3-4 times per day to check your oxygen saturation. If it is below 88%, use supplemental oxygen as needed. Follow-up with your primary care doctor and your chief cardiopulmonary technologist as needed. Discharge Orders/Prescriptions Prescriptions: Continued pregabalin 75 mg capsule 75 mg PO TID Patient Comments: take 1 capsule by mouth three times a day (DME) comp.stocking,thigh,long,x-lrg Misc See Rx Instructions .ROUTE .MEDSUPPLY Qty: 4 2RF Rx Instructions: As directed fluticasone propionate [Flonase Allergy Relief] 50 mcg/actuation spray,suspension 2 spray INTRANASAL DAILY PRN (Reason: allergy symptoms) Qty: 15.8 1RF Rx Instructions: administer into each nostril nystatin 100,000 unit/gram powder 1 applic topical BID PRN (Reason: rash) Qty: 30 0RF fenofibrate nanocrystallized 48 mg tablet 48 mg PO DAILY Qty: 90 3RF (DME) Blood Pressure Cuff [facility] [place] See Rx Instructions .Route Qty: 1 0RF Rx Instructions: Check blood pressure twice a day levetiracetam 750 mg tablet 750 mg PO BID Qty: 60 5RF aripiprazole 2 mg tablet 2 mg PO DAILY Qty: 30 3RF buprenorphine 1 EACH patch weekly 20 mcg TOPICAL TH MDD thurs (DME) Handicap Placard See Rx Instructions .ROUTE .MEDSUPPLY Qty: 1 0RF Rx Instructions: As directed, length of time 3 years (DME) walker [facility] [place] See Rx Instructions .ROUTE .MEDSUPPLY Qty: 1 0RF Rx Instructions: rollator with wheels and a seat baclofen 20 mg tablet 10 mg PO TID PRN (Reason: Spasms) Qty: 30 1RF mirtazapine 15 mg tablet,disintegrating See Rx Instructions .ROUTE .COMPLEX Qty: 90 1RF Dose Instruction: TAKE 1 TABLET BY MOUTH AT BEDTIME depression Rx Instructions: TAKE 1 TABLET BY MOUTH AT BEDTIME depression omeprazole 40 mg capsule,delayed release(DR/EC) 40 mg PO DAILY Qty: 90 0RF No Action (DME) compress.stocking,knee,reg,lrg [facility] [place] See Rx Instructions .MEDSUPPLY Qty: 2 1RF Rx Instructions: wear daily for venous insufficiency 20-30 mmHg buspirone 5 mg tablet 5 mg PO TID Qty: 270 1RF Breztri Aerosphere 160-9-4.8 mcg/actuation HFA aerosol inhaler 2 inh inhalation BID Qty: 10.7 2RF cetirizine [Zyrtec] 10 mg tablet 10 mg PO DAILY PRN (Reason: Congestion) Qty: 90 2RF escitalopram oxalate 20 mg tablet 20 mg PO DAILY Qty: 90 1RF lisinopril-hydrochlorothiazide 20-12.5 mg tablet 1 tab PO DAILY Qty: 90 1RF benztropine 0.5 mg tablet 0.5 mg PO BID Qty: 180 1RF Referrals / Follow Up: Nick Lindsey MD [Primary Care Provider] - 03/02/23 8:45 am Disposition Disposition (needs filled in before D/C Order can be placed): Home, Self Care Charges/Coding Visit Charges Inpatient E&M: 53997 Disch Hosp >30min
--- NOTE | 2023-02-24 14:48 | PHA.DC.MC.R ---
Pharmacy [facility] has performed discharge medication reconciliation and counseling for this patient. 1. LEVOFLOXACIN 750MG PO DAILY X 2 DAYS 2. PREDNISONE 40MG PO BREAKFAST X 4 DAYS The patient's discharge medication list was reviewed for discrepancies and discrepancies were resolved. The patient was counseled on the following discharge medications and changes in medications for homegoing were reviewed. The Reason for Use, instructions for use, and potential side effects were reviewed for all new medications. The patient's questions regarding all of their medications were answered. The patient was able to verbally demonstrate an understanding of their discharge medications. Patient counseled by foreign student adviserNeela. Medications at Discharge Home Medications buprenorphine 15 mcg/hour weekly transdermal patch 20 mcg topical TH PAIN 05/23/20 Handicap Placard #1 ea 08/13/20 pregabalin 75 mg capsule 75 mg PO TID nerve pain 10/05/20 walker #1 ea 10/05/20 comp.stocking,thigh,long,x-lrg #4 ea 01/29/21 baclofen 20 mg tablet 10 mg (1/2 x 20 mg) PO TID PRN Spasms #30 tabs 04/11/21 fluticasone propionate 50 mcg/actuation nasal spray,suspension (Flonase Allergy Relief) 2 spray intranasal DAILY PRN allergy symptoms #15.8 mL 09/03/21 cetirizine 10 mg tablet (Zyrtec) 10 mg PO DAILY PRN Congestion #90 tabs 03/12/22 fenofibrate nanocrystallized 48 mg tablet 48 mg PO DAILY CHOLESTEROL #90 tabs 05/06/22 miscellaneous medical supply (Blood Pressure Cuff) #1 ea 05/06/22 nystatin 100,000 unit/gram topical powder 1 applic topical BID PRN rash #30 grams 05/06/22 buspirone 5 mg tablet 5 mg PO TID DEPRESSION #270 tabs 08/19/22 levetiracetam 750 mg tablet 750 mg PO BID seizure #60 tabs 11/19/22 mirtazapine 15 mg disintegrating tablet See Rx Instructions .Route .COMPLEX #90 tabs 12/02/22 aripiprazole 2 mg tablet 2 mg PO DAILY mental health #30 tabs 12/16/22 benztropine 0.5 mg tablet 0.5 mg PO BID prevent muscle spasms #60 tabs 12/16/22 budesonide 160 mcg-glycopyr 9 mcg-formot 4.8 mcg/actuation HFA inhaler ([employer]Best[employer]) 2 inh inhalation BID breathing #10.7 grams 12/22/22 escitalopram oxalate 20 mg tablet 20 mg PO DAILY DEPRESSION #90 tabs 12/29/22 lisinopril 20 mg-hydrochlorothiazide 12.5 mg tablet 1 tab PO DAILY blood pressure #90 tabs 12/29/22 omeprazole 40 mg capsule,delayed release 40 mg PO DAILY GERD #90 caps 02/03/23 levofloxacin 750 mg tablet 750 mg PO 2200 2 days #2 tabs 02/24/23 prednisone 20 mg tablet 40 mg (2 x 20 mg) PO BREAKFAST 2 days #4 tabs 02/24/23
--- NOTE | 2023-02-24 15:12 | CASEMGMT ---
RN ELY updated that patient will need home oxygen at discharge. Patient prefers [employer]. AILIN GRAVES received [place] and [place] [facility] [place] ELY updated patient, patient denies further needs at discharge. Patient had no further questions or concerns at this time.
== END 2023-02-24 16:20 | disposition home or self-care (01) | DRG 140 ==
LOC: ED 20:55 → PCU 21:29
PROVIDERS: Physician Assistant; Admitting Provider Family Medicine; Emergency Provider Emergency Medicine; PCP Internal Medicine; Visit Provider Hospitalist
DX: J44.1 Chronic obstructive pulmonary disease with (acute) exacerbation (principal); J96.01 Acute respiratory failure with hypoxia; D50.9 Iron deficiency anemia, unspecified; E78.00 Pure hypercholesterolemia, unspecified; F17.210 Nicotine dependence, cigarettes, uncomplicated; E66.9 Obesity, unspecified; J96.02 Acute respiratory failure with hypercapnia; G40.909 Epilepsy, unspecified, not intractable, without status epilepticus; F32.A Depression, unspecified; I10 Essential (primary) hypertension; J30.9 Allergic rhinitis, unspecified; K21.9 Gastro-esophageal reflux disease without esophagitis; G62.9 Polyneuropathy, unspecified; F41.9 Anxiety disorder, unspecified; M54.9 Dorsalgia, unspecified; J06.9 Acute upper respiratory infection, unspecified; G89.4 Chronic pain syndrome; Z20.822 Contact with and (suspected) exposure to COVID-19; Z79.899 Other long term (current) drug therapy; Z88.0 Allergy status to penicillin; Z68.38 Body mass index [BMI] 38.0-38.9, adult
CPT/HCPCS: 36415; 36600; 71045; 71275; 80048; 80053; 82803; 82962; 83605; 84145; 84484; 85025; 87070; 87205; 87428; 87449; 87633; 87635; 87641; 93005; 94002; 94003; 94640; 94668; 94762; 97110; 97162; 97166; 97530; 97535; 99285; J7030; J7050; Q9967; A4216

== ENCOUNTER 2023-03-02 06:26 | Day surgery (SDC) | payer MEDICAID, SELFPAY ==
[2023-03-02 07:15] VITALS: BP 136/74; PULSE 88; RESP 20; TEMP 37.2; O2SAT 86; BMI 38.9
[2023-03-02] MEDS: Lactated Ringers 1,000 ML 15 ML IV (07:15)
[2023-03-02 07:35] VITALS: PULSE 81; RESP 18
[2023-03-02] MEDS: Ipratropium/Albuterol Sulfate 3 ML AMPUL.NEB INHALATION (07:45)
--- NOTE | 2023-03-02 07:46 | NURSING ---
after duoneb patient states she feels no different, not in any respiratory distress visibly but oxygen saturation is 87%. dr sommer made aware
--- NOTE | 2023-03-02 08:18 | SUR.PREOP ---
dr esteban aware that pox on ra 88-90% after breathing tx- he will do pt as a local per anesthesia request. pt is aware and questions answered by dr esteban. dr esteban wants pt to be on her 3l oxygen at that she wears at home at night now preop and when she goes home to wear cont for the next few days he also wants pt sent home with inc spirometer and to cough and deep breathe. teaching done with pt
--- NOTE | 2023-03-02 08:30 | RAD_ITS ---
EXAMINATION: Fluoroscopic guided lumbar block. INDICATION: PAIN Total Fluoroscopic Time: 21 seconds AND number of Fluoroscopic Images: 7 OR Radiation dosage index: 19.56 mGy COMPARISON: Lumbar MRI from 08/27/2022. FINDINGS: Limited intraoperative fluoroscopic images from lumbar spine submitted for review. Stable bilateral lumbar fusion hardware at the L3-S1 levels. There is intraoperative placement of needles at the L3-S1 levels. RAD/L/S Spine Min 4 Views IMPRESSION: Fluoroscopic guided lumbar block procedure. Please see intraoperative report for further details. Electronically Signed: Jeanmarie Villa DO at 11:06 EDT ,
[2023-03-02 08:37] VITALS: BP 156/132; PULSE 85; RESP 14; O2SAT 98
[2023-03-02 08:41] VITALS: BP 196/155; PULSE 87; RESP 14; O2SAT 97
[2023-03-02] MEDS: MethylPREDNISolone Acetate 40 MG/ML Vial IM (08:44)
[2023-03-02] MEDS: Lidocaine 1% (30 ml sdv) 30 ML Vial (08:44)
[2023-03-02 09:04] VITALS: BP 160/67; PULSE 91; RESP 16; TEMP 37.1; O2SAT 97
--- NOTE | 2023-03-02 09:20 | PCM.OPRPT ---
Report of Operation Date of Procedure: 11/12/20 Pre-Operative Diagnosis: Lumbosacral spondylosis, lumbosacral degenerative disc disease, lumbar facet arthropathy Post-Operative Diagnosis: Lumbosacral spondylosis, lumbosacral degenerative disc disease, lumbar facet arthropathy Surgery/Procedure Performed:: Right-sided lumbar radiofrequency ablation of the medial branch L4, L5, S1 Type of Anesthesia: Local Estimated Blood Loss (mL): Minimal Description of Procedure: History and physical today was reviewed. Risks and benefits of procedure explained. The patient understood, agreed to the procedure and informed consent was obtained. IV inserted per routine protocol. The patient was taken to the operating room, placed in the prone position with a pillow positioned underneath the abdomen. The right side of the lower back was prepped and draped in a sterile fashion using iodine x 3. Under fluoroscopy guidance, on an oblique view, the L3 through S1 vertebral bodies were visualized. The skin and subcutaneous tissue was anesthetized with approximately 10 mL of 1% lidocaine using a 25-gauge regular needle. Under direct visualization with fluoroscopy at approximately 25-degree angle, starting on the right L3, ending on the right S1 passing through the L4-L5 using a 20-gauge 15 cm with a 10 mm curved active tip radiofrequency ablation needle the needle passed through the skin. The tip of the needle was maneuvered and directed towards the superior and medial gutter of the transverse process at the vicinity of the medial branch. Once the tip of the needle was in contact with the bone, the needle pulled approximately 2 mm up the bone. The stylet of each needle was then removed. After negative aspiration of blood with CSF and confirmation of AP as well as oblique view, radiofrequency ablation probe was then inserted at each level. Impedance was then recorded at L3 to be 294, at L4 200, at L5 293, at S1 242 ohm. Motor-evoked potential was then initiated to 1.5 volt without any motor response at each corresponding level. The probe was then removed intact and a total of 6 mL preservative-free 1% lidocaine was injected in divided doses between those 4 levels after negative aspiration of blood with CSF. The radiofrequency ablation probe was then reinserted after confirmation of AP, oblique as well as lateral view. Radiofrequency ablation was then initiated to 80 degrees Celsius for 90 seconds at each level. Once concluded, the probe was then removed intact and a total of 6 mL of preservative-free 0.25% Marcaine with 40 mg Depo-Medrol was injected in divided doses between those 4 levels. The needles were then removed intact. The patient experienced no signs or symptoms of intrathecal, intravascular injection. The patient experienced no paraesthesia. The procedure was completed without any apparent difficulty, any complication. The patient appeared to tolerate well. Sensory as well as motor exam was unchanged from prior to procedure. ASSESSMENT AND PLAN: This is a 62-year-old female with lumbosacral spondylosis, lumbosacral degenerative disc disease, lumbar facet arthropathy, status post right-sided radiofrequency ablation of the medial branch L4 through S1. The patient will continue her current medications. The patient will follow up in approximately 2 weeks for reevaluation. Complications None
== END 2023-03-02 09:14 | disposition home or self-care (01) ==
LOC: SDC 06:27 → AC 06:29
PROVIDERS: PCP Internal Medicine; Referring Provider Anesthesiology Pain Medicine; Visit Provider Anesthesiology Pain Medicine
PROC: (CPT 64635; principal; 2023-03-02 08:10)
DX: M47.817 Spondylosis without myelopathy or radiculopathy, lumbosacral region (principal); M51.37 Other intervertebral disc degeneration, lumbosacral region; I10 Essential (primary) hypertension; K21.9 Gastro-esophageal reflux disease without esophagitis; E66.9 Obesity, unspecified
CPT/HCPCS: 64635; 64636 ×2; 72110; 76000; 94640; J7120

== ENCOUNTER → 2023-03-19 | Outpatient (CLI) | payer MEDICAID, SELFPAY ==
[2023-03-19 17:18] LABS: ALB/GLOB Ratio 0.9 RATIO (0.9-2.4); AST(SGOT) 15 U/L (15-37); Alanine Aminotransfer ALT/SGPT 19 U/L (13-56); Alkaline Phosphatase 56 U/L (45-117); Anion Gap 5 (5-15); BUN 14 mg/dL (7-18); BUN/Creat Ratio 18.2 RATIO (10-20); Calcium,Total 9.3 mg/dL (8.5-10.1); Chloride 100 mmol/L (98-107); Creatinine, Serum 0.77 mg/dL (0.55-1.02); EST Glomerular Filtration Rate 80 mL/min (>60); Est Glom Filt Rate - Afr Amer 97 mL/min (>60); Globulin 3.5 g/dL (2.2-4.2); Glucose 91 mg/dL (74-106); Potassium 3.8 mmol/L (3.5-5.1); Protein, Total 6.5 g/dL (6.4-8.2); Sodium Level 138 mmol/L (136-145)
== END | disposition home or self-care (01) ==
LOC: BIMLAB 15:30
PROVIDERS: PCP Internal Medicine; Visit Provider Internal Medicine
DX: J44.9 Chronic obstructive pulmonary disease, unspecified (principal)
CPT/HCPCS: 36415; 80053

== ENCOUNTER 2023-05-21 12:42 | Emergency (ER) | payer MEDICAID, SELFPAY ==
[2023-05-21] VITALS (7 sets, daily range): BP systolic 130–176; BP diastolic 83–108; PULSE 85–93; RESP 14–22; TEMP 37.1; O2SAT 87–97; BMI 35.8
--- NOTE | 2023-05-21 12:59 | EKG12_ITS ---
Test Reason : SOB Blood Pressure : / mmHG Vent. Rate : 092 BPM Atrial Rate : 092 BPM P-R Int : 198 ms QRS Dur : 092 ms QT Int : 376 ms P-R-T Axes : 031 -17 043 degrees QTc Int : 464 ms Normal sinus rhythm Low voltage QRS Incomplete right bundle branch block Inferior infarct (cited on or before 21-FEB-2023) Abnormal ECG Confirmed by ANDREA DUBOIS, LOLA ([id number]), health editor WILLIAM ORTA ([id number]) on 05/25/2023 8:14:45 AM Referred By: CECILIO Confirmed By:NELSON MENDEZ MD
--- NOTE | 2023-05-21 13:00 | EDS_ITS ---
HPI History of Present Illness Chief Complaint: Shortness of Breath Narrative Narrative: 62-year-old female past medical history of COPD, wears 3 L of oxygen at home was recently admitted to the hospital last month is when she started her home use of oxygen, presents with increased shortness of breath and cough that is productive of sputum for the last few days. She states she is having increasing shortness of breath and dyspnea on exertion. Of note, she states she quit smoking a few days ago. Her access registrar are Dr. Welsh and Dr. Ayala. She denies any increased leg swelling, no history of CHF. She presents with increasing shortness of breath for the last few days. [facility] Medical History Arthritis Asthma Chronic pain COPD (chronic obstructive pulmonary disease) Cough Depression Epilepsy Gastric reflux GI bleed High cholesterol History of COPD History of edema Hyperlipidemia Hypertension Hypertension Leg cramps Lower extremity edema Neuropathy Restless legs Seasonal allergies Seizures Shortness of breath Smoker Sore throat Stasis dermatitis Tobacco abuse Venous insufficiency of both lower extremities Vitamin D deficiency Walker as ambulation aid Wears dentures Wears glasses Home Medications buprenorphine 15 mcg/hour weekly transdermal patch 20 mcg topical TH PAIN 05/23/20 [History Last Taken 02/24/21] Handicap Placard #1 ea 08/13/20 [Rx Last Taken 02/24/21] pregabalin 75 mg capsule 75 mg PO TID nerve pain 10/05/20 [History Last Taken 10/27/22] walker #1 ea 10/05/20 [Rx Last Taken 02/24/21] comp.stocking,thigh,long,x-lrg #4 ea 01/29/21 [Rx Last Taken 02/24/21] baclofen 20 mg tablet 10 mg (1/2 x 20 mg) PO TID PRN Spasms #30 tabs 04/11/21 [Rx Last Taken Unknown] fluticasone propionate 50 mcg/actuation nasal spray,suspension (Flonase Allergy Relief) 2 spray intranasal DAILY PRN allergy symptoms #15.8 mL 09/03/21 [Rx Last Taken Unknown] miscellaneous medical supply (Blood Pressure Cuff) #1 ea 05/06/22 [Rx Last Taken Unknown] nystatin 100,000 unit/gram topical powder 1 applic topical BID PRN rash #30 grams 05/06/22 [Rx Last Taken Unknown] levetiracetam 750 mg tablet 750 mg PO BID seizure #60 tabs 11/19/22 [Rx Last Taken Unknown] mirtazapine 15 mg disintegrating tablet See Rx Instructions .Route .COMPLEX #90 tabs 12/02/22 [Rx Last Taken Unknown] aripiprazole 2 mg tablet 2 mg PO DAILY mental health #30 tabs 12/16/22 [Rx Last Taken Unknown] omeprazole 40 mg capsule,delayed release 40 mg PO DAILY GERD #90 caps 02/03/23 [Rx Last Taken Unknown] buspirone 5 mg tablet 5 mg PO TID #270 tabs 03/04/23 [Rx Last Taken Unknown] compress.stocking,knee,reg,lrg #2 ea 03/19/23 [Rx Last Taken Unknown] budesonide 160 mcg-glycopyr 9 mcg-formot 4.8 mcg/actuation HFA inhaler (Breztri Aerosphere) 2 inh inhalation BID breathing #10.7 grams 03/24/23 [Rx Last Taken Unknown] cetirizine 10 mg tablet (Zyrtec) 10 mg PO DAILY PRN Congestion #90 tabs 03/24/23 [Rx Last Taken Unknown] escitalopram oxalate 20 mg tablet 20 mg PO DAILY DEPRESSION #90 tabs 03/30/23 [Rx Last Taken Unknown] lisinopril 20 mg-hydrochlorothiazide 12.5 mg tablet 1 tab PO DAILY blood pressure #90 tabs 03/30/23 [Rx Last Taken Unknown] benztropine 0.5 mg tablet 0.5 mg PO BID prevent muscle spasms #180 tabs 04/01/23 [Rx Last Taken Unknown] fenofibrate nanocrystallized 48 mg tablet 48 mg PO DAILY CHOLESTEROL #90 tabs 04/07/23 [Rx Last Taken Unknown] walker (Ultra-Light Rollator misc) #1 ea 04/09/23 [Rx Last Taken Unknown] prednisone 20 mg tablet 40 mg (2 x 20 mg) PO DAILY #20 tabs 05/21/23 [Rx Last Taken Unknown] Allergy/AdvReac Type Severity Reaction Status Date / Time clindamycin Allergy Hives Verified 05/21/23 12:43 aspirin AdvReac Severe Upset Verified 05/21/23 12:43 Stomach Penicillins AdvReac Severe vomiting Verified 05/21/23 12:43 Family History Mother Breast cancer Hypertension Hyperlipemia Cancer melanoma, lyphoma ulcers Father Diabetes Myocardial infarction, Onset Age: 67 Hypertension Depression Sister Depression Hyperlipemia Surgical History H/O: hysterectomy History of ankle surgery History of back surgery History of tonsillectomy Hx of colonoscopy Hx of right knee surgery Social History household members: friend(s) Smoking Status: Current every day smoker tobacco type: cigarettes Tobacco: How many years used: 25 second hand exposure: No alcohol intake: never substance use type: does not use what type of physical activity do you participate in: walking frequency: 3-4 times per week dari/church: Catholic seatbelt use: sometimes ROS ROS ED ROS Narrative Constitutional: No fever, no chills. HEENT: No sore throat. No neck pain. No loss of vision. No rhinorrhea. Cardiovascular: No chest pain. No palpitations. No pedal edema. Respiratory: Positive cough, increasing dyspnea on exertion and shortness of breath. Abdominal: No abdominal pain. No nausea. No vomiting. Genitourinary: No dysuria. No hematuria. Musculoskeletal: No myalgias. No arthralgias. Neurologic: No headaches. No dizziness. No lightheadedness. Skin: No rash. No change in color. Psychiatric: No depression. No anxiety. EXAM Physical Exam Narrative Exam Narrative: Afebrile. Vital signs noted. HEENT: Normocephalic. Atraumatic. PERRL, EOMI. Neck soft and supple. No point tenderness or step off. Cardiovascular: Regular rate and rhythm. No murmurs, rubs, or gallops appreciated. Respiratory: No tachypnea. Moving a fair amount of air. Decreased breath sounds bilateral bases. Positive rhonchi bilaterally with occasional expiratory wheeze. Gastrointestinal: Abdomen soft, nontender, with normoactive bowel sounds. No rebound or guarding. Neurological: Awake. Alert. Nonfocal, nonlateralizing. Skin: No rash. Normal color. No pallor. Musculoskeletal: No pedal edema. Full range of motion extremities. Const Vital Signs: 05/21/23 12:43 05/21/23 13:05 05/21/23 13:06 Temperature 98.7 F Temperature Source Temporal Pulse Rate 93 Respiratory Rate 22 H Respiratory Effort Short of Breath Respiratory Depth Normal Respiratory Pattern Normal Blood Pressure 176/97 H Blood Pressure Mean 123 Pulse Ox 87 97 Oxygen Delivery Method Nasal Cannula Nasal Cannula Nasal Cannula Oxygen Flow Rate (L/min) 4 4 4 05/21/23 13:25 05/21/23 13:25 05/21/23 13:26 Temperature Temperature Source Pulse Rate 85 Respiratory Rate 22 H Respiratory Effort Respiratory Depth Respiratory Pattern Blood Pressure Blood Pressure Mean Pulse Ox 95 Oxygen Delivery Method Nasal Cannula Nasal Cannula Oxygen Flow Rate (L/min) 4 3 05/21/23 14:00 Temperature Temperature Source Pulse Rate 90 Respiratory Rate 20 H Respiratory Effort Respiratory Depth Respiratory Pattern Blood Pressure 168/108 H Blood Pressure Mean 128 Pulse Ox 91 Oxygen Delivery Method Room Air Oxygen Flow Rate (L/min) MDM MDM MDM Narrative Medical decision making narrative: In the differential diagnosis is pneumonia versus COPD exacerbation versus CHF versus pneumothorax. I have low suspicion for CHF as she does not have history of this, and history and physical does not support pneumothorax. She will be given a DuoNeb aerosolized treatment as she has been using her inhaler and nebulizer without relief. I discussed continued smoking cessation with her. She will be given Solu-Medrol 125 mg intravenously as well. EKG was obtained and interpreted by myself independently as normal sinus rhythm at 92 bpm without ectopy or acute ST changes. No STEMI. I reviewed the patient's laboratory work and she has normal white count of 9.9, hemoglobin stable 11.8, platelet count normal at 275. Potassium slightly low at 3.4 on her BMP which I think is nonspecific it was replaced orally as well with 40 mill equivalents. BUN and creatinine are normal at 14 and 0.75. Chest x-ray in 1 view interpreted by myself shows no evidence of an acute pneumonia or pneumothorax. I do not feel antibiotics are indicated. I reviewed the radiology report which confirms my independent interpretation. Upon repeat examination, she is resting comfortably. She did ambulate to the bathroom, but she refuses to wear her oxygen. At this point in time, I do not feel she requires admission but she was told to wear her 3 L of oxygen at home and increase as needed. I wrote her a prescription for steroid burst for 10 days of 40 mill equivalents of prednisone. She will continue her nebulizer treatments and her inhaler. Smoking cessation should be continued. She will follow-up with her access registrar as scheduled in 1 to 2 weeks. Return instructions to the emergency department were reviewed. I do not feel she requires admission at this time. Disposition is discharged home in stable condition. History & Record Review Discussion w/independent historian: Patient Additional record(s) reviewed:: Prior ED visit and Prior labs Lab Data Attestation: I reviewed the patient's lab results. Labs: Laboratory Results - last 24 hr 05/21/23 13:20 WBC 9.9 RBC 4.89 Hgb 11.8 L Hct 39.7 MCV 81.2 MCH 24.1 L MCHC 29.7 L RDW Std Deviation 50.5 H RDW Coeff of Dyana 17.2 H Plt Count 275 MPV 9.4 Immature Gran % (Auto) 0.400 Neut % (Auto) 79.2 H Lymph % (Auto) 12.1 L [place] % (Auto) 6.5 Eos % (Auto) 1.3 Baso % (Auto) 0.5 Absolute Neuts (auto) 7.8 H Absolute Lymphs (auto) 1.19 Nucleated RBC % 0 Sodium 137 Potassium 3.4 L Chloride 99 Carbon Dioxide 36.0 H Anion Gap 2 L BUN 14 Creatinine 0.75 Estim Creat Clear Calc 72.81 Est GFR (MDRD) Af Amer 100 Est GFR (MDRD) Non-Af 83 BUN/Creatinine Ratio 18.6 Glucose 91 Calcium 9.3 Troponin I High Sens 4 B-Natriuretic Peptide 50.5 Radiography Diagnostic Testing: Clinical Impression(s) from Imaging Studies Chest X-Ray 05/21/23 13:07 IMPRESSION: Normal x-ray examination of the chest. Electronically Signed: Kody Lakhani MD at 13:57 EST , Discharge Plan Triage Chief Complaint: Shortness of Breath ED Provider: Seng Cleveland Dx/Rx/DC Orders Clinical Impression: COPD with acute exacerbation, Cough Instructions: ED COPD Flare Prescriptions: New prednisone 20 mg tablet 40 mg PO DAILY Qty: 20 0RF No Action pregabalin 75 mg capsule 75 mg PO TID Patient Comments: take 1 capsule by mouth three times a day (DME) comp.stocking,thigh,long,x-lrg Misc See Rx Instructions .ROUTE .MEDSUPPLY Qty: 4 2RF Rx Instructions: As directed fluticasone propionate [Flonase Allergy Relief] 50 mcg/actuation spra y,suspension 2 spray INTRANASAL DAILY PRN (Reason: allergy symptoms) Qty: 15.8 1RF Rx Instructions: administer into each nostril nystatin 100,000 unit/gram powder 1 applic topical BID PRN (Reason: rash) Qty: 30 0RF (DME) Blood Pressure Cuff Misc See Rx Instructions .Route Qty: 1 0RF Rx Instructions: Check blood pressure twice a day levetiracetam 750 mg tablet 750 mg PO BID Qty: 60 5RF aripiprazole 2 mg tablet 2 mg PO DAILY Qty: 30 3RF (DME) compress.stocking,knee,reg,lrg Misc See Rx Instructions .MEDSUPPLY Qty: 2 1RF Rx Instructions: wear daily for venous insufficiency 20-30 mmHg buprenorphine 1 EACH patch weekly 20 mcg TOPICAL TH MDD thurs (DME) Handicap Placard See Rx Instructions .ROUTE .MEDSUPPLY Qty: 1 0RF Rx Instructions: As directed, length of time 3 years (DME) walker Misc See Rx Instructions .ROUTE .MEDSUPPLY Qty: 1 0RF Rx Instructions: rollator with wheels and a seat baclofen 20 mg tablet 10 mg PO TID PRN (Reason: Spasms) Qty: 30 1RF mirtazapine 15 mg tablet,disintegrating See Rx Instructions .ROUTE .COMPLEX Qty: 90 1RF Dose Instruction: TAKE 1 TABLET BY MOUTH AT BEDTIME depression Rx Instructions: TAKE 1 TABLET BY MOUTH AT BEDTIME depression omeprazole 40 mg capsule,delayed release(DR/EC) 40 mg PO DAILY Qty: 90 0RF buspirone 5 mg tablet 5 mg PO TID Qty: 270 1RF Breztri Aerosphere 160-9-4.8 mcg/actuation HFA aerosol inhaler 2 inh inhalation BID Qty: 10.7 2RF cetirizine [Zyrtec] 10 mg tablet 10 mg PO DAILY PRN (Reason: Congestion) Qty: 90 2RF escitalopram oxalate 20 mg tablet 20 mg PO DAILY Qty: 90 1RF lisinopril-hydrochlorothiazide 20-12.5 mg tablet 1 tab PO DAILY Qty: 90 1RF benztropine 0.5 mg tablet 0.5 mg PO BID Qty: 180 1RF fenofibrate nanocrystallized 48 mg tablet 48 mg PO DAILY Qty: 90 3RF (DME) Ultra-Light Rollator Misc See Rx Instructions .Route Qty: 1 0RF Rx Instructions: As directed Primary Care Provider: Nick Lindsey Referrals: Edwin Ayala MD [Med Staff - Active Staff] - Keep Holly appointment Nick Lindsey MD [Primary Care Provider] - Activity Restrictions/Additional Instructions: Continue to refrain from smoking. Take your prednisone as prescribed. Use your nebulizer and inhalers, and wear your oxygen 3 L. Follow-up with your access registrar as scheduled. Disposition Disposition: Home, Self Care
--- NOTE | 2023-05-21 13:07 | RAD_ITS ---
STUDY: X-RAY CHEST REASON FOR EXAM: Female, 62 years old. Shortness of Breath . Cough. Dizziness. TECHNIQUE: Single AP portable view of the chest. COMPARISON: Comparison is made with prior study dated February 21, 2023. FINDINGS: EKG electrodes are seen. The lungs are clear and expanded. There is no demonstrated pleural abnormality. Normal size heart. Normal mediastinum and shyla. Normal visualized pulmonary arteries. There is atherosclerotic calcification of the aortic arch with tortuosity. There are degenerative changes of the visualized thoracic spine. Normal visualized ribs, clavicles, and shoulders. There is no demonstrated abnormality of the visualized soft tissue structures of the upper abdomen. RAD/Chest 1 View (Portable) IMPRESSION: Normal x-ray examination of the chest. Electronically Signed: Kody Lakhani MD at 13:57 EST ,
[2023-05-21] MEDS: Ipratropium/Albuterol Sulfate 3 ML AMPUL.NEB INHALATION (13:22)
[2023-05-21] MEDS: MethylPREDNISolone 125 MG/2 ML Vial IV (13:22)
[2023-05-21 13:33] LABS: Absolute Lymphocyte Count 1.19 X10^3/uL (0.83-4.51); Absolute Neutrophil Count 7.8 X10^3/uL (2.0-7.7); Basophil# 0.05 X10^3/uL; Basophil% 0.5 % (0-1); Eosinophil# 0.13 X10^3/uL; Eosinophils% 1.3 % (0-5); Hematocrit 39.7 % (37-47); Hemoglobin 11.8 g/dL (12.0-15.0); Lymphocyte # 1.19 X10^3/ul (0.83-4.51); Lymphocyte % 12.1 % (19-41); Mean Corp Hgb Conc 29.7 g/dL (32-36); Mean Corpuscular Hgb 24.1 pg (27.0-32.0); Mean Corpuscular Volume 81.2 fL (81-99); Mean Platelet Vol. 9.4 fl (6.2-12.0); Monocyte# 0.64 X10^3/uL; Monocyte% 6.5 % (0-10); NRBC Flagged by Analyzer 0 % (0-5); Neutrophil % 79.2 % (47-70); Platelet Count 275 K/mm3 (150-450); RBC Distribution Width CV 17.2 % (11.6-14.6); RBC Distribution Width SD 50.5 fl (35.1-43.9); Red Blood Count 4.89 M/mm3 (4.2-5.4); White Blood Count 9.9 K/mm3 (4.4-11.0)
[2023-05-21] MEDS: Acetaminophen 325 MG Tablet 650 MG PO (13:41)
[2023-05-21 13:48] LABS: Anion Gap 2 (5-15); BUN 14 mg/dL (7-18); BUN/Creat Ratio 18.6 RATIO (10-20); Calcium,Total 9.3 mg/dL (8.5-10.1); Chloride 99 mmol/L (98-107); Creatinine, Serum 0.75 mg/dL (0.55-1.02); EST Glomerular Filtration Rate 83 mL/min (>60); Est Glom Filt Rate - Afr Amer 100 mL/min (>60); Estimated Creatinine Clearance 72.81 ml/min; Glucose 91 mg/dL (74-106); Potassium 3.4 mmol/L (3.5-5.1); Sodium Level 137 mmol/L (136-145); Troponin-I HS 4 pg/mL (3.0-54.0)
[2023-05-21] MEDS: Ondansetron 4 MG/2 ML Vial IV (13:56)
[2023-05-21] MEDS: Morphine 4 MG/ML Syringe IV (13:56)
[2023-05-21 13:59] LABS: BNP,B-Type NATRIURETIC PEPTIDE 50.5 pg/mL (0-100)
[2023-05-21] MEDS: Potassium Chloride Oral Tablet 20 MEQ 40 MEQ PO (14:31)
== END 2023-05-21 15:10 | disposition home or self-care (01) ==
PROVIDERS: Emergency Provider Emergency Medicine; PCP Internal Medicine; Visit Provider Emergency Medicine
DX: J44.1 Chronic obstructive pulmonary disease with (acute) exacerbation (principal); I10 Essential (primary) hypertension; E78.00 Pure hypercholesterolemia, unspecified; F17.210 Nicotine dependence, cigarettes, uncomplicated
CPT/HCPCS: 71045; 80048; 83880; 84484; 85025; 93005; 94640; 96374; 96375; 99285; A4216; J2405

== ENCOUNTER → 2023-06-26 | Outpatient (CLI) | payer MEDICAID, SELFPAY ==
--- NOTE | 2023-06-26 14:47 | CT_ITS ---
EXAM: CT CHEST, LUNG CANCER SCREENING WITHOUT INTRAVENOUS CONTRAST CLINICAL INDICATION: smoking TECHNIQUE: Helically acquired images were obtained of the chest without intravenous contrast using low dose (LDCT) lung cancer screening protocol. This CT exam was performed using one or more of the following dose reduction techniques: automated exposure control, adjustment of the mA and/or kV according to patient size, and/or use of iterative reconstruction technique. COMPARISON: CTA chest 02/21/2023 FINDINGS: LUNGS AND PLEURAL SPACES: Linear atelectatic change within the right middle lobe and left lower lobe as well as linear atelectasis within the lingula. No evidence of a lung mass or nodule. No pleural effusion or thickening. No pneumothorax. HEART: Heart is normal size. Moderate coronary artery calcification. No pericardial effusion. MEDIASTINUM: Normal. No mediastinal or hilar adenopathy. Esophagus is unremarkable. No hiatal hernia. THYROID: Normal. No thyroid nodules or calcification. BONES/JOINTS: No suspicious lytic or blastic abnormality. VASCULATURE: No aortic aneurysm. LYMPH NODES: Normal. No enlarged lymph nodes. CT/Low Dose CT Lung Screening IMPRESSION: No evidence of a lung mass or nodule. Lung-RADS score: 1 - Negative. Recommend continued annual screening with a low-dose CT (LDCT) in 12 months. Electronically Signed: Pablo Cagle MD at 16:34 EST ,
== END | disposition home or self-care (01) ==
LOC: CT 14:47
PROVIDERS: PCP Internal Medicine; Referring Provider Nurse Practitioner Acute Care; Visit Provider Nurse Practitioner Acute Care
DX: F17.210 Nicotine dependence, cigarettes, uncomplicated (principal)
CPT/HCPCS: 71271

== ENCOUNTER → 2023-06-30 | Outpatient (CLI) | payer MEDICAID, SELFPAY ==
[2023-06-30 11:15] VITALS: PULSE 69; PULSE 72; PULSE 80; PULSE 82; O2SAT 84; O2SAT 93
--- NOTE | 2023-06-30 11:46 | CPS ---
Pt came to walk on 3 lpm pulse dose oxygen. Pt was placed on room air prior to start of test. Room air at rest pt was 86%. Pt was placed on 1 lpm pulse dose. Pt remained 86% at rest on 1 lpm pulse dose. Pt was increased to 2 lpm pulse dose then 3 lpm pulse dose then 4 lpm pulse dose and the highest she was was 89% on the 4 lpm pulse dose at rest. Pt was placed on 2 lpm continuous and came up to 93% at rest. Walk was started on 2 lpm continuous. At 1 minute into walk pt desated to 84% and was increased to 3 lpm. Pt walked to the 2 minute shahrzad of test on 3 lpm and refused to finish walk stating that she doesn't walk this much at one time.
--- NOTE | 2023-06-30 12:51 | PCM.PSN.6M ---
PSN 6 Minute Walk Test 6 Minute Walk Test 6 Minute Walk Test: 6 Minute Walk Test PSN:6-Minute Walk Test Start: 06/30/23 11:39 Freq: Status: Active Protocol: [id number].6MINW Document 06/30/23 11:15 AEH (Rec: 06/30/23 11:57 AE Desktop) 6 Minute Walk Test Date Performed 06/30/23 Time Performed 11:15 Height 5 ft 6 in Weight: 200 lb Weight in Pounds 200.[address]: Stew Assistive device used: Walker Pre-test Oxygen Flow Rate (L/min) 2 Oxygen Delivery Method Nasal Cannula Pulse Ox 93 Pulse Rate (60-100) 69 Dyspnea Severino Scale (0-10) 0 Exertion Severino Scale (6-20) 6 1st minute Oxygen Flow Rate (L/min) 2 Pulse Ox 84 Pulse Rate (60-100) 80 Dyspnea Severino Scale (0-10) 1 Number of Rests Taken 1 Reported Symptoms Increased Work of Breathing 2nd minute Oxygen Flow Rate (L/min) 3 Oxygen Delivery Method Nasal Cannula Pulse Ox 93 Pulse Rate (60-100) 82 Dyspnea Severino Scale (0-10) 2 Number of Rests Taken 1 Reported Symptoms Increased Work of Breathing 3rd minute Oxygen Delivery Method Nasal Cannula Number of Rests Taken 1 4th minute Oxygen Delivery Method Nasal Cannula Number of Rests Taken 1 5th minute Oxygen Delivery Method Nasal Cannula Number of Rests Taken 1 6th minute Oxygen Delivery Method Nasal Cannula Number of Rests Taken 1 Post-test Oxygen Flow Rate (L/min) 3 Oxygen Delivery Method Nasal Cannula Pulse Ox 93 Pulse Rate (60-100) 72 Full Laps Walked 1 Partial Lap, Number of Tiles Walked 0 Total Distance Walked (ft) 59 06/30/23 11:46 Cardiopulmonary Services by Shannon Ferrara Pt came to walk on 3 lpm pulse dose oxygen. Pt was placed on room air prior to start of test. Room air at rest pt was 86%. Pt was placed on 1 lpm pulse dose. Pt remained 86% at rest on 1 lpm pulse dose. Pt was increased to 2 lpm pulse dose then 3 lpm pulse dose then 4 lpm pulse dose and the highest she was was 89% on the 4 lpm pulse dose at rest. Pt was placed on 2 lpm continuous and came up to 93% at rest. Walk was started on 2 lpm continuous. At 1 minute into walk pt desated to 84% and was increased to 3 lpm. Pt walked to the 2 minute shahrzad of test on 3 lpm and refused to finish walk stating that she doesn't walk this much at one time. Initialized on 06/30/23 11:46 - END OF NOTE Interpretation Interpretation: The patient ambulated only 59 feet over the course of 6 minutes beginning on room air. Pretesting oxygen saturation was noted to be 86% on room air. The patient did require 2 L/min of continuous flow oxygen at rest to improve oxygen saturations, prior to ambulation. With ambulation, the patient desaturated to 84%, requiring an increase in supplemental oxygen flow rate to 3 L/min continuous flow. The patient only ambulated for 2 minutes and then refused to finish the remainder of the test. Recommendations Recommendations: 2 L/min of continuous flow oxygen is required at rest, while 3 L/min of continuous flow is required with exertion.
== END | disposition home or self-care (01) ==
LOC: PSN 10:59
PROVIDERS: PCP Internal Medicine; Referring Provider Nurse Practitioner Acute Care; Visit Provider Nurse Practitioner Acute Care
DX: J44.9 Chronic obstructive pulmonary disease, unspecified (principal)
CPT/HCPCS: 94618

== ENCOUNTER → 2023-07-02 | Outpatient (CLI) | payer MEDICAID, SELFPAY ==
--- NOTE | 2023-07-02 12:54 | CPS ---
Pt performed lung volumes/airway resistance and only 1 spirometry before refusing to finish the test. Pt stated she was feeling tired and exhausted and did not wish to continue with test.
--- NOTE | 2023-07-04 05:46 | PFTCOMP_ITS ---
COMPLETE PULMONARY FUNCTION TEST INTERPRETATION Brief HPI: Patient is a 63-year-old female, currently under the care of Daisha Gilbert, who presents to [facility] for complete pulmonary function tests secondary to diagnosis of COPD. Respiratory therapist reports good effort and reproducible results. Unfortunately, patient was exhausted and was unable to assess for bronchodilator response or DLCO. Interpretation: Forced expiration spirometry shows a very severe large airways obstructive ventilatory defect with an FEV1 of 28% predicted. There was no significant bronchodilator response evaluated on this test. Spirograms are of good quality and plateau slowly, indicating slowly emptying areas of the lungs. The respiratory flow volume loop shows decreased expiratory flow rates at all lung volumes consistent with airway obstruction. Lung volumes by body plethysmography show an elevated total lung capacity at 6.51 L, 124% predicted. FRC and RV are elevated out of proportion. Lung volume measurements are consistent with hyperinflation and air-trapping. Diffusion capacity by carbon monoxide was not tested. The airway resistance is elevated. No previous pulmonary function tests were available for review. Impression: Very severe large airways obstructive ventilatory defect resulting in air trapping with hyperinflation
== END | disposition home or self-care (01) ==
LOC: PSN 11:52
PROVIDERS: PCP Internal Medicine; Referring Provider Nurse Practitioner Acute Care; Visit Provider Nurse Practitioner Acute Care
DX: J44.9 Chronic obstructive pulmonary disease, unspecified (principal)
CPT/HCPCS: 94010; 94726

== ENCOUNTER 2023-08-31 09:58 | Day surgery (SDC) | payer MEDICAID, SELFPAY ==
[2023-08-31 10:34] VITALS: BP 155/89; PULSE 78; RESP 18; TEMP 36.2; O2SAT 90; BMI 34.3
[2023-08-31] MEDS: Lactated Ringers 1,000 ML 15 ML IV (10:42)
[2023-08-31] MEDS: Ipratropium/Albuterol Sulfate 3 ML AMPUL.NEB INHALATION (10:48)
--- NOTE | 2023-08-31 11:19 | RAD_ITS ---
PROCEDURE: Caudal epidural steroid injection. DATE OF EXAMINATION: August 31, 2023. INDICATION: Female, 63 years old. Low back pain. FLUOROSCOPY TIME (if supplied): (5 seconds) minutes/seconds. 4.61 mGy. 2 spot images were obtained. RAD/Fluor Guidance for Spine Inj IMPRESSION: Intraoperative fluoroscopic services provided for caudal epidural steroid injection. Electronically Signed: Kody Lakhani MD at 13:02 EST ,
[2023-08-31] MEDS: 0.9% Normal Saline (Pres. free 10 ML Vial (11:24)
[2023-08-31] MEDS: MethylPREDNISolone Acetate 80 MG/ML Vial (11:24)
[2023-08-31] MEDS: Lidocaine 1% (5 ml sdv) 5 ML Vial (11:25)
[2023-08-31 11:40] VITALS: BP 115/84; BP 155/89; PULSE 82; RESP 18; TEMP 37.3; O2SAT 95
--- NOTE | 2023-08-31 11:43 | OP.PCM_ITS ---
Report of Operation Date of Procedure: 08/31/23 Pre-Operative Diagnosis: Postlaminectomy syndrome of the lumbar spine, lumbosac ral radiculopathy, lumbosacral degenerative disc disease, lumbosacral spinal stenosis Post-Operative Diagnosis: Postlaminectomy syndrome of the lumbar spine, lumbosacral radiculopathy, lumbosacral degenerative disc disease, lumbosacral spinal stenosis Surgery/Procedure Performed:: Diagnostic/therapeutic caudal epidural steroid injection under fluoroscopic guidance Type of Anesthesia: MAC Estimated Blood Loss (mL): Minimal Description of Procedure: DESCRIPTION OF PROCEDURE: History and physical of today was reviewed. Risks and benefits of the procedure were explained. The patient understood and agreed to proceed. Informed consent was obtained. IV inserted per routine protocol. The patient was taken to the operating room and placed in the prone position with a pillow positioned underneath the abdomen. The lower back and tailbone area was prepped and draped in a sterile fashion using iodine x3. Under fluoroscopy guidance on a lateral view, the caudal space was identified. The skin and subcutaneous tissue was anesthetized with approximately 3 mL of 1% lidocaine using a 25-gauge regular needle. Under direct visualization with fluoroscopy, using a 22-gauge 3-1/2-inch spinal needle, the needle was advanced via the skin through the sacral hiatus. The tip of the needle was passed through the sacrococcygeal ligament and advanced to approximately S4 area. After negative aspiration of blood or CSF, a total of 3 mL of contrast was injected to confirm correct placement of the needle as well as cephalad spread. The spread was followed to approximately L5 area. After confirmation on AP as well as lateral view and repeated negative aspiration, a total of 15 mL of preservative-free 0.125% Marcaine with 80 mg of Depo-Medrol was injected easily. The needle was then removed intact. The patient experienced no sign or symptoms of intrathecal or intravascular injection. The patient experienced no paresthesia. The procedure was completed without any apparent difficulty or any complications. The patient appeared to tolerate it well. ASSESSMENT AND PLAN: This is a 63-year-old female with postlaminectomy syndrome of the lumbar spine, lumbosacral radiculopathy, lumbosacral degenerative disc disease, lumbosacral spinal stenosis status post diagnostic/therapeutic caudal epidural steroid injection, patient will continue her current medications, patient will follow up in approximately 2 weeks for reevaluation. Complications None
[2023-08-31 11:45] VITALS: BP 155/89; BP 157/81; PULSE 81; RESP 20; O2SAT 96
[2023-08-31 11:50] VITALS: BP 135/96; BP 155/89; PULSE 79; RESP 20; O2SAT 96
[2023-08-31 12:01] VITALS: BP 120/104; BP 155/89; PULSE 78; RESP 18; TEMP 36.7; O2SAT 93
[2023-08-31 12:30] VITALS: BP 155/89
== END 2023-08-31 12:32 | disposition home or self-care (01) ==
LOC: SDC 09:58 → AC 10:08
PROVIDERS: PCP Internal Medicine; Referring Provider Internal Medicine; Visit Provider Anesthesiology Pain Medicine
PROC: 3E0S3BZ Introduction of Anesthetic Agent into Epidural Space, Percutaneous Approach (ICD-10-PCS; CPT 62282; principal; 2023-08-31 11:25)
DX: M51.17 Intervertebral disc disorders with radiculopathy, lumbosacral region (principal); J44.9 Chronic obstructive pulmonary disease, unspecified; J96.01 Acute respiratory failure with hypoxia; G40.909 Epilepsy, unspecified, not intractable, without status epilepticus; M96.1 Postlaminectomy syndrome, not elsewhere classified; M48.07 Spinal stenosis, lumbosacral region; G89.29 Other chronic pain; I10 Essential (primary) hypertension; Z79.899 Other long term (current) drug therapy
CPT/HCPCS: 62323; 01992; 64483; 77003; J7120; J3490

== ENCOUNTER 2023-09-15 18:32 | Inpatient (IN) | payer MEDICAID, SELFPAY ==
[2023-09-15] VITALS (13 sets, daily range): BP systolic 116–152; BP diastolic 59–86; PULSE 74–96; RESP 17–26; TEMP 36.1–37.4; O2SAT 87–95; BMI 36.8; BMI 36.2
--- NOTE | 2023-09-15 19:04 | EKG12_ITS ---
Test Reason : DYSRHYTHMIA Blood Pressure : / mmHG Vent. Rate : 082 BPM Atrial Rate : 082 BPM P-R Int : 202 ms QRS Dur : 086 ms QT Int : 376 ms P-R-T Axes : 046 017 048 degrees QTc Int : 439 ms Normal sinus rhythm Low voltage QRS Borderline ECG Confirmed by Yared Roa ([id number]), assignment editor TONYA BOLANOS ([id number]) on 09/16/2023 9:45:28 AM Referred By: Confirmed By:Yared Roa
--- NOTE | 2023-09-15 19:05 | ED.VIS.DYS ---
HPI History of Present Illness Chief Complaint: Shortness of Breath Informant: patient Onset/Context/Timing Onset: Today and Yesterday Context: gradual Timing: Continuous Quality: Positive for Wheezing Current Severity: Moderate Maximum Severity: Moderate Worsened by: Exertion and Coughing Relieved by: Oxygen and Albuterol Associated Symptoms cough and green sputum Chest Pain: Positive for None Narrative Narrative: 63-year-old female history of COPD, asthma, chronic back pain and chronic pain, hypertension and chronic kidney disease. She is on 3 L of oxygen at home. Said last night she started get short of breath he had a cough of greenish sputum which started last night also. Denies any chest pain. No hemoptysis. Denies any fever. No history of DVT or PE. No new leg pain or swelling. She is currently not on any steroids. Called her stock patch sawyer office today who called her in an antibiotic but she has not picked it up or started it yet. PE Risk Factors: Negative for Cancer, OCP + Smoking + > 35, Prior DVT or PE, Recent immobilization, Recent surgery or Recent travel Prior similar symptoms: Yes Recent Illness/Hospitalization: No PFSH PFSH Medical History Arthritis Asthma Chronic pain COPD (chronic obstructive pulmonary disease) Cough Depression Epilepsy Gastric reflux GI bleed High cholesterol History of COPD History of edema Hyperlipidemia Hypertension Hypertension Leg cramps Lower extremity edema Neuropathy Restless legs Seasonal allergies Seizures Shortness of breath Smoker Sore throat Stasis dermatitis Tobacco abuse Venous insufficiency of both lower extremities Vitamin D deficiency Walker as ambulation aid Wears dentures Wears glasses Home Medications buprenorphine 15 mcg/hour weekly transdermal patch 20 mcg topical TH PAIN 05/23/20 [History Last Taken 02/24/21] pregabalin 75 mg capsule 75 mg PO TID nerve pain 10/05/20 [History Last Taken 10/27/22] walker #1 ea 10/05/20 [Rx Last Taken 02/24/21] comp.stocking,thigh,long,x-lrg #4 ea 01/29/21 [Rx Last Taken 02/24/21] baclofen 20 mg tablet 10 mg (1/2 x 20 mg) PO TID PRN Spasms #30 tabs 04/11/21 [Rx Last Taken Unknown] fluticasone propionate 50 mcg/actuation nasal spray,suspension (Flonase Allergy Relief) 2 spray intranasal DAILY PRN allergy symptoms #15.8 mL 09/03/21 [Rx Last Taken Unknown] miscellaneous medical supply (Blood Pressure Cuff) #1 ea 05/06/22 [Rx Last Taken Unknown] nystatin 100,000 unit/gram topical powder 1 applic topical BID PRN rash #30 grams 05/06/22 [Rx Last Taken Unknown] compress.stocking,knee,reg,lrg #2 ea 03/19/23 [Rx Last Taken Unknown] cetirizine 10 mg tablet (Zyrtec) 10 mg PO DAILY PRN Congestion #90 tabs 03/24/23 [Rx Last Taken Unknown] escitalopram oxalate 20 mg tablet 20 mg PO DAILY DEPRESSION #90 tabs 03/30/23 [Rx Last Taken Unknown] lisinopril 20 mg-hydrochlorothiazide 12.5 mg tablet 1 tab PO DAILY blood pressure #90 tabs 03/30/23 [Rx Last Taken Unknown] fenofibrate nanocrystallized 48 mg tablet 48 mg PO DAILY CHOLESTEROL #90 tabs 04/07/23 [Rx Last Taken Unknown] mark (Ultra-Light Rollator misc) #1 ea 04/09/23 [Rx Last Taken Unknown] mirtazapine 15 mg tablet 15 mg PO QHS #90 tabs 05/26/23 [Rx Last Taken Unknown] budesonide 160 mcg-glycopyr 9 mcg-formot 4.8 mcg/actuation HFA inhaler (Breztri Aerosphere) 2 inh inhalation BID breathing #3 ea 06/10/23 [Rx Last Taken Unknown] omeprazole 40 mg capsule,delayed release 40 mg PO DAILY GERD #90 caps 06/29/23 [Rx Last Taken Unknown] Handicap Placard #1 ea 07/29/23 [Rx Last Taken Unknown] albuterol sulfate 90 mcg/actuation aerosol inhaler 2 puff inhalation Q4H PRN shortness of breath or wheezing #8.5 grams 08/13/23 [Rx Last Taken Unknown] nicotine 21mg/24hr-14mg/24hr-7mg/24hr daily transderm patches,sequentl See Rx Instructions transdermal .COMPLEX #56 patches 08/13/23 [Rx Last Taken Unknown] aripiprazole 2 mg tablet 2 mg PO DAILY mental health #90 tabs 08/17/23 [Rx Last Taken Unknown] benztropine 1 mg tablet 1 mg PO BID #60 tabs 08/17/23 [Rx Last Taken Unknown] buspirone 5 mg tablet 5 mg PO TID #270 tabs 09/01/23 [Rx Last Taken Unknown] Allergy/AdvReac Type Severity Reaction Status Date / Time clindamycin Allergy Hives Verified 09/15/23 18:39 aspirin AdvReac Severe Upset Verified 09/15/23 18:39 Stomach Penicillins AdvReac Severe vomiting Verified 09/15/23 18:39 Family History Mother Breast cancer Hypertension Hyperlipemia Cancer melanoma, lyphoma ulcers Father Diabetes Myocardial infarction, Onset Age: 67 Hypertension Depression Sister Depression Hyperlipemia Surgical History H/O: hysterectomy History of ankle surgery History of back surgery History of tonsillectomy Hx of colonoscopy Hx of right knee surgery Social History household members: friend(s) Smoking Status: Light Smoker (<10/day) Tobacco: How many years used: 25 second hand exposure: No alcohol intake: never substance use type: does not use what type of physical activity do you participate in: walking frequency: 3-4 times per week dari/jainism: Adventism seatbelt use: sometimes ROS ROS ED ROS Narrative Cough with green sputum. Shortness of breath. Wheezing. Review of Systems ROS Unobtainable: Denies due to encephalopathy Constitutional Constitutional ED: Denies chills or fever(s) Eyes Eyes: Denies blurry vision ENT ENT ED: Denies ear pain Cardiovascular Cardiovascular: Denies chest pain Respiratory/Chest Respiratory/Chest: Reports cough, dyspnea, dyspnea on exertion and sputum Gastrointestinal Gastrointestinal: Denies abdominal pain, constipation, diarrhea, melena, nausea or vomiting Genitourinary Genitourinary ED: Denies dysuria or hematuria Musculoskeletal Musculoskeletal: Denies arthralgias Integumentary Denies abscess Neurologic Neurologic: Denies headache(s) Psychiatric Psychiatric: Denies anxiety or depression Endocrine Endocrinology: Denies cold intolerance or heat intolerance Hematologic/Lymphatic Hematologic/Lymphatic: Denies easy bleeding, easy bruising or lymphadenopathy Allergic/Immunologic Allergic/Immunologic ED: Denies mouth swelling, tongue swelling or urticaria EXAM Physical Exam Narrative Exam Narrative: 63-year-old female sitting upright in bed. Vital signs stable on 3 L she is 94% that is her normal oxygen 3 L. Temperature nine 9.4. She does not look septic or toxic. HEENT exam mild dry mucous membranes. Pupils round reactive light. Neck nontender no JVD. Lungs prolonged expiratory phase. Scattered wheezes. Diminished breath sounds bilaterally. Heart regular rhythm no murmur rate 80. Chest wall nontender. Abdomen soft nontender. Moving all 4 extremities. Calves are nontender without edema or cords. Neurologically she is awake alert with no focal motor deficits. Const Vital Signs: 09/15/23 18:33 09/15/23 18:41 09/15/23 19:10 Temperature 99.4 F H Temperature Source Oral Pulse Rate 83 Respiratory Rate 18 Respiratory Effort Short of Breath Respiratory Pattern Tachypnea Blood Pressure 152/79 H Blood Pressure Mean 103 Pulse Ox 94 Oxygen Delivery Method Nasal Cannula Nasal Cannula Oxygen Flow Rate (L/min) 3 3 09/15/23 20:53 09/15/23 20:59 09/15/23 20:09 Temperature 98.4 F Temperature Source Oral Pulse Rate 96 95 74 Respiratory Rate 22 H 26 H 24 H Respiratory Effort Respiratory Pattern Tachypnea Blood Pressure 142/83 H Blood Pressure Mean 102 Pulse Ox 87 90 Oxygen Delivery Method Nasal Cannula Nasal Cannula Oxygen Flow Rate (L/min) 3 5 09/15/23 21:30 09/15/23 21:45 09/15/23 22:00 Temperature Temperature Source Pulse Rate 92 94 95 Respiratory Rate 18 23 H 23 H Respiratory Effort Respiratory Pattern Blood Pressure 134/69 H 116/59 L 122/85 H Blood Pressure Mean 87 77 93 Pulse Ox Oxygen Delivery Method Oxygen Flow Rate (L/min) 09/15/23 22:15 Temperature Temperature Source Pulse Rate 91 Respiratory Rate 24 H Respiratory Effort Respiratory Pattern Blood Pressure 126/81 H Blood Pressure Mean 92 Pulse Ox Oxygen Delivery Method Oxygen Flow Rate (L/min) Positive well nourished, well developed and obese; Negative for cachectic, contractures or unkempt General Appearance ED: well developed; Negative for unkempt, cachectic, contractures, NAD or pallor Nutritional Appearance: obese; Negative for cachectic HEENT Reports dry mucous membranes; Denies moist mucous membranes atraumatic; Negative for trauma or tenderness Mouth ED: Yes dry mucous membranes Mouth: dry mucous membranes Eyes PERRL and EOMs intact bilaterally General Eye ED: Negative for pale conjunctiva or scleral icterus Neck no lymphadenopathy, supple, no meningeal signs and no JVD General: Negative for tenderness Lymph Lymphatic: Negative for other Chest Wall Chest: Negative for other Resp No normal respiratory effort and No clear to auscultation bilaterally Resp Narrative: Prolonged expiratory phase. Scattered wheezes. Diminished breath sounds bilaterally. Effort and Inspection: Negative for pain with movement Auscultation: diminished lung sounds; Negative for rales or rhonchi Cardio regular rate, regular rhythm, S1 normal heart sound, S2 normal heart sound and no murmurs Rate: Negative for bradycardia or tachycardic Rhythm: Negative for abnormal rhythm GI non-tender, non-distended and no masses Inspection: Negative for other Auscultation: normoactive bowel sounds Palpation: soft; Negative for tender, guarding or rebound tenderness present Back/Spine no CVA tenderness and normal to inspection General Back: Negative for CVA tenderness Extremity normal to inspection General Extremety ED: Negative for edema or tenderness General Extremity: Negative for edema Neuro oriented x3 and CN's II-XII intact bilaterally Sensorium / Orientation: alert, oriented to person, oriented to place and oriented to time; Negative for orientation impaired, confused, lethargic or stuporous Speech: speech normal Motor Exam: strength 5/5 throughout Psych mental status grossly normal Appearance: Negative for unkempt Attitude: No agitated Mood & Affect: Negative for depressed, anxious or tearful Thought Process: normal thought process Skin no wounds and skin turgor normal General Skin Exam: Negative for jaundice or pallor Lesions: no lesions Rashes: no rashes Trauma: Negative for abrasion or laceration MDM MDM MDM Narrative Medical decision making narrative: 63-year-old female with shortness of breath suspect secondary to COPD exacerbation. Rule out pneumonia or viral syndrome versus other etiologies. Aerosols with DuoNeb and albuterol. IV Solu-Medrol. Repeat exam at 10 PM. Patient received albuterol and DuoNeb aerosols. She had some improvement but now she seems like she is getting worse again. She is still not having normal air movement. She also received IV Solu-Medrol. Currently we are getting a blood gas. She has a history of retention. History & Record Review Discussion w/independent historian: Patient Additional record(s) reviewed:: Prior inpatient record, Prior outpatient record, Prior ED visit, Prior labs and No prior records Lab Data Attestation: I reviewed the patient's lab results. Lab results narrative: CBC shows a white count 9.4. H&H 11.5 and 37. Platelets 267. Electrolytes show a sodium 133. Gap 1. Normal BUN and creatinine. Glucose 90. Troponin 5. Chest x-ray chronic changes. No obvious pneumonia. No effusion. Arterial blood gas obtained by the respiratory therapist shows a pH of 7.40/pCO2 of 50 and a pO2 of only 59 on 6 L. With a sat of 90%. Labs: Laboratory Results - last 24 hr 09/15/23 18:47 WBC 9.4 RBC 4.54 Hgb 11.5 L Hct 37.5 MCV 82.6 MCH 25.3 L MCHC 30.7 L RDW Std Deviation 48.3 H RDW Coeff of Dyana 16.0 H Plt Count 267 MPV 9.7 Immature Gran % (Auto) 0.400 Neut % (Auto) 80.7 H Lymph % (Auto) 10.2 L [place] % (Auto) 6.8 Eos % (Auto) 1.3 Baso % (Auto) 0.6 Absolute Neuts (auto) 7.6 Absolute Lymphs (auto) 0.96 Nucleated RBC % 0 Sodium 133 L Potassium 4.1 Chloride 99 Carbon Dioxide 33.0 H Anion Gap 1 L BUN 14 Creatinine 0.73 Estim Creat Clear Calc 95.96 Est GFR (MDRD) Af Amer 104 Est GFR (MDRD) Non-Af 86 BUN/Creatinine Ratio 19.3 Glucose 90 Calcium 9.1 Troponin I High Sens 5 ABG Data ABG results: ABG 09/15/23 22:12 Specimen Type ART Sample Site R Radial pH 7.40 Bicarbonate Actual 31.7 H Total CO2 33 Base Excess 7 H O2 Saturation 90 L O2 % 6.0 ABG pCO2 50.7 H ABG pO2 60 L Fran Test Positive O2 Delivery Device Cannula Vent Mode Not entered Radiography Chest X-Ray - ED: 1 View, Read by ED Physician, Read by Radiologist, Heart, Lungs, Mediastinum, Bony Structures, No Acute Disease and Chronic Changes Diagnostic Testing: Clinical Impression(s) from Imaging Studies Chest X-Ray 09/15/23 19:35 IMPRESSION: Mild lower lung edema or infiltrates. Electronically Signed: Rajan Yanez MD at 20:55 EST , Chest x-ray, 2 views AP and lateral interpreted by myself and radiologist shows chronic changes no acute process. Normal cardiac silhouette. No obvious pneumonia. No effusions. Rhythm Strip Rhythm Strip: Sinus Rhythm Rate: 82 Ectopy: None EKG Initial EKG: Attestation: I personally reviewed and interpreted this EKG as follows: Interpretation: Sinus Rhythm and No Acute Injury Pattern Comments: Normal sinus rhythm rate 82 no acute signs of OR or ischemia. Discharge Plan Triage Chief Complaint: Shortness of Breath ED Provider: Gennaro Brand Dx/Rx/DC Orders Clinical Impression: Hypoxia, History of hypertension, Acute exacerbation of chronic obstructive pulmonary disease Prescriptions: No Action pregabalin 75 mg capsule 75 mg PO TID Patient Comments: take 1 capsule by mouth three times a day (DME) comp.stocking,thigh,long,x-lrg Misc See Rx Instructions .ROUTE .MEDSUPPLY Qty: 4 2RF Rx Instructions: As directed fluticasone propionate [Flonase Allergy Relief] 50 mcg/actuation spray,suspension 2 spray INTRANASAL DAILY PRN (Reason: allergy symptoms) Qty: 15.8 1RF Rx Instructions: administer into each nostril nystatin 100,000 unit/gram powder 1 applic topical BID PRN (Reason: rash) Qty: 30 0RF (DME) Blood Pressure Cuff Misc See Rx Instructions .Route Qty: 1 0RF Rx Instructions: Check blood pressure twice a day (DME) compress.stocking,knee,reg,lrg Misc See Rx Instructions .MEDSUPPLY Qty: 2 1RF Rx Instructions: wear daily for venous insufficiency 20-30 mmHg aripiprazole 2 mg tablet 2 mg PO DAILY Qty: 90 1RF benztropine 1 mg tablet 1 mg PO BID Qty: 60 5RF albuterol sulfate 90 mcg/actuation HFA aerosol inhaler 2 puff inhalation Q4H PRN (Reason: shortness of breath or wheezing) Qty: 8.5 6RF Rx Instructions: administer with spacer nicotine 21-14-7 mg/24 hr patch, TD daily, sequential See Rx Instructions transdermal .COMPLEX Qty: 56 0RF Rx Instructions: apply 1-21 mg NICOTINE PATCH daily for 28 days; follow with 1-14 mg PATCH daily for 14 days, then 1-7mg PATCH daily for 14 days transdermal buprenorphine 1 EACH patch weekly 20 mcg TOPICAL TH MDD [place]ME[place] [facility] [place] Instructions .ROUTE .MEDSUPPLY Qty: 1 0RF Rx Instructions: rollator with wheels and a seat baclofen 20 mg tablet 10 mg PO TID PRN (Reason: Spasms) Qty: 30 1RF cetirizine [Zyrtec] 10 mg tablet 10 mg PO DAILY PRN (Reason: Congestion) Qty: 90 2RF escitalopram oxalate 20 mg tablet 20 mg PO DAILY Qty: 90 1RF lisinopril-hydrochlorothiazide 20-12.5 mg tablet 1 tab PO DAILY Qty: 90 1RF fenofibrate nanocrystallized 48 mg tablet 48 mg PO DAILY Qty: 90 3RF (DME) [place] [facility] [place] Rx Instructions .Route Qty: 1 0RF Rx Instructions: As directed mirtazapine 15 mg tablet 15 mg PO QHS Qty: 90 1RF Breztri Aerosphere 160-9-4.8 mcg/actuation HFA aerosol inhaler 2 inh inhalation BID Qty: 3 3RF omeprazole 40 mg capsule,delayed release(DR/EC) 40 mg PO DAILY Qty: 90 1RF (DME) Handicap Placard See Rx Instructions .ROUTE .MEDSUPPLY Qty: 1 0RF Rx Instructions: As directed, length of time 3 years buspirone 5 mg tablet 5 mg PO TID Qty: 270 0RF Primary Care Provider: Nick Lindsey Referrals: Nick Lindsey MD [Primary Care Provider] -
[2023-09-15] MEDS: 0.9% Normal Saline (1000mL) 1,000 ML 999 ML IV (19:13)
[2023-09-15] MEDS: MethylPREDNISolone 125 MG/2 ML Vial IV (19:13)
[2023-09-15 19:25] LABS: Absolute Lymphocyte Count 0.96 X10^3/uL (0.83-4.51); Absolute Neutrophil Count 7.6 X10^3/uL (2.0-7.7); Basophil# 0.06 X10^3/uL; Basophil% 0.6 % (0-1); Eosinophil# 0.12 X10^3/uL; Eosinophils% 1.3 % (0-5); Hematocrit 37.5 % (37-47); Hemoglobin 11.5 g/dL (12.0-15.0); Lymphocyte # 0.96 X10^3/ul (0.83-4.51); Lymphocyte % 10.2 % (19-41); Mean Corp Hgb Conc 30.7 g/dL (32-36); Mean Corpuscular Hgb 25.3 pg (27.0-32.0); Mean Corpuscular Volume 82.6 fL (81-99); Mean Platelet Vol. 9.7 fl (6.2-12.0); Monocyte# 0.64 X10^3/uL; Monocyte% 6.8 % (0-10); NRBC Flagged by Analyzer 0 % (0-5); Neutrophil # 7.61 X10^3/uL (2.7-7.7); Neutrophil % 80.7 % (47-70); Platelet Count 267 K/mm3 (150-450); RBC Distribution Width SD 48.3 fl (35.1-43.9); Red Blood Count 4.54 M/mm3 (4.2-5.4); White Blood Count 9.4 K/mm3 (4.4-11.0)
--- NOTE | 2023-09-15 19:35 | RAD_ITS ---
STUDY: X-RAY CHEST REASON FOR EXAM: Female, 63 years old. Dyspnea TECHNIQUE: Frontal and lateral views of the chest. COMPARISON: May 21, 2023 FINDINGS: There are monitoring devices. There are mild lower lung opacities. There is no demonstrated pleural abnormality. There is mild cardiac enlargement. Normal mediastinum and shyla. Normal visualized pulmonary arteries. There is atherosclerotic calcification of the aortic arch. Normal visualized thoracic spine. Normal visualized ribs, clavicles, and shoulders. There is no demonstrated abnormality of the visualized soft tissue structures of the upper abdomen. RAD/Chest PA and Lateral IMPRESSION: Mild lower lung edema or infiltrates. Electronically Signed: Rajan Yanez MD at 20:55 EST ,
[2023-09-15 19:51] LABS: Anion Gap 1 (5-15); BUN 14 mg/dL (7-18); BUN/Creat Ratio 19.3 RATIO (10-20); Calcium,Total 9.1 mg/dL (8.5-10.1); Chloride 99 mmol/L (98-107); Creatinine, Serum 0.73 mg/dL (0.55-1.02); EST Glomerular Filtration Rate 86 mL/min (>60); Est Glom Filt Rate - Afr Amer 104 mL/min (>60); Estimated Creatinine Clearance 95.96 ml/min; Glucose 90 mg/dL (74-106); Potassium 4.1 mmol/L (3.5-5.1); Sodium Level 133 mmol/L (136-145); Troponin-I HS 5 pg/mL (3.0-54.0)
[2023-09-15] MEDS: Ipratropium/Albuterol Sulfate 3 ML AMPUL.NEB INHALATION (20:09)
[2023-09-15] MEDS: Albuterol 2.5 MG/3 ML VIAL.NEB. INHALATION ×3 (20:09→21:01)
--- NOTE | 2023-09-15 21:51 | CPS ---
x3 Albuterol given to pt. in ER as well
[2023-09-15 22:15] LABS: Allen Test Positive; Base Excess 7 mmol/L (-2 to +2); Bicarbonate 31.7 mmol/L (22-26); Blood Gas Specimen Type ART; Mode Not entered; O2 Delivery Device Cannula; PO2 60 mmHG (75-100); SITE R Radial; SO2 90 % (95-99); Total Carbon Dioxide 33 mmol/L; pCO2 50.7 mmHg (35-45)
--- NOTE | 2023-09-15 22:55 | HP.PCM.HOS_ITS ---
HPI - General General Date of Admission: 09/15/23 Date of Service: 09/15/23 Chief Complaint: Dyspnea, wheezing, productive cough. HPI Narrative The patient is a 63 y/o F w/ PMHx: Chronic anemia, Tobacco use, Anxiety and Depression, Chronic COPD/Asthma with Chronic Hypoxic Respiratory Failure (3L NC), HTN, HLD, Allergic Rhinitis, GERD w/ Hx GI Bleed, Epilepsy, Chronic pain syndrome, RLS who presents to the [facility] ED on 09/15/2023 with shortness of breath starting the evening prior with productive cough of green sputum with no recent fevers but worsened prompting her to call her credit or loans officer who prescribed her an antibiotic however she has not started it nor picked it up yet normally on 3 L nasal cannula and unfortunately continued to worsen with increasing dyspnea, wheezing both worse with exertion as well as worsening cough prompting eventual ED evaluation. Workup in the ED included T99.4 With most recent repeat 98.4, heart rate 83, BP 152/79 with most recent repeat 126/81, respiratory rate 18, initially noted to be 94% on 3 L nasal cannula however desaturated to 87% on 3 L increased to 5 L noted to be 90%, CBC with WC 9.4, hemoglobin 11.5, MCV 82.6, platelet 267 without marked shift, ABG with bicarb 31.7, pH 7.40, pCO2 50.7, pO2 60, BMP with sodium 133, carbon oxide 33 otherwise not marked appearing, troponin 5, chest x-ray with mild lower lung edema or infiltrates, rapid SARS COVID/influenza/RSV PCR negative, EKG with sinus rhythm with no acute evidence of ischemia. In the ED patient ministered Solu-Medrol 125 mg IV x 1, DuoNeb therapy as well as 1 L normal saline bolus. [facility] Medical History (Updated 09/16/23 @ 00:[address] Myriam Ferro MD) Anxiety and depression Arthritis Asthma Chronic acquired lymphedema Chronic pain COPD (chronic obstructive pulmonary disease) Epilepsy Gastric reflux High cholesterol History of GI bleed Hyperlipidemia Hypertension Neuropathy Obesity Restless legs Seasonal allergies Seizures Stasis dermatitis Tobacco abuse Venous insufficiency of both lower extremities Vitamin D deficiency Walker as ambulation aid Wears dentures Wears glasses Home Medications buprenorphine 15 mcg/hour weekly transdermal patch 20 mcg topical TH PAIN 05/23/20 [History Last Taken 09/10/23] pregabalin 75 mg capsule 75 mg PO TID nerve pain 10/05/20 [History Last Taken 10/27/22] walker #1 ea 10/05/20 [Rx Last Taken 02/24/21] comp.stocking,thigh,long,x-lrg #4 ea 01/29/21 [Rx Last Taken 02/24/21] baclofen 20 mg tablet 10 mg (1/2 x 20 mg) PO TID PRN Spasms #30 tabs 04/11/21 [Rx Last Taken Unknown] fluticasone propionate 50 mcg/actuation nasal spray,suspension (Flonase Allergy Relief) 2 spray intranasal DAILY PRN allergy symptoms #15.8 mL 09/03/21 [Rx Last Taken Unknown] miscellaneous medical supply (Blood Pressure Cuff) #1 ea 05/06/22 [Rx Last Taken Unknown] nystatin 100,000 unit/gram topical powder 1 applic topical BID PRN rash #30 grams 05/06/22 [Rx Last Taken Unknown] compress.stocking,knee,reg,lrg #2 ea 03/19/23 [Rx Last Taken Unknown] cetirizine 10 mg tablet (Zyrtec) 10 mg PO DAILY PRN Congestion #90 tabs 03/24/23 [Rx Last Taken Unknown] escitalopram oxalate 20 mg tablet 20 mg PO DAILY DEPRESSION #90 tabs 03/30/23 [Rx Last Taken Unknown] lisinopril 20 mg-hydrochlorothiazide 12.5 mg tablet 1 tab PO DAILY blood pressure #90 tabs 03/30/23 [Rx Last Taken Unknown] fenofibrate nanocrystallized 48 mg tablet 48 mg PO DAILY CHOLESTEROL #90 tabs 04/07/23 [Rx Last Taken Unknown] mark (Ultra-Light Rollator misc) #1 ea 04/09/23 [Rx Last Taken Unknown] mirtazapine 15 mg tablet 15 mg PO QHS #90 tabs 05/26/23 [Rx Last Taken Unknown] budesonide 160 mcg-glycopyr 9 mcg-formot 4.8 mcg/actuation HFA inhaler (Breztri Aerosphere) 2 inh inhalation BID breathing #3 ea 06/10/23 [Rx Last Taken Unknown] omeprazole 40 mg capsule,delayed release 40 mg PO DAILY GERD #90 caps 06/29/23 [Rx Last Taken Unknown] Handicap Placard #1 ea 07/29/23 [Rx Last Taken Unknown] albuterol sulfate 90 mcg/actuation aerosol inhaler 2 puff inhalation Q4H PRN shortness of breath or wheezing #8.5 grams 08/13/23 [Rx Last Taken Unknown] nicotine 21mg/24hr-14mg/24hr-7mg/24hr daily transderm patches,sequentl See Rx Instructions transdermal .COMPLEX #56 patches 08/13/23 [Rx Last Taken Unknown] aripiprazole 2 mg tablet 2 mg PO DAILY mental health #90 tabs 08/17/23 [Rx Last Taken Unknown] benztropine 1 mg tablet 1 mg PO BID #60 tabs 08/17/23 [Rx Last Taken Unknown] buspirone 5 mg tablet 5 mg PO TID #270 tabs 09/01/23 [Rx Last Taken Unknown] Allergy/AdvReac Type Severity Reaction Status Date / Time clindamycin Allergy Hives Verified 09/15/23 18:39 aspirin AdvReac Severe Upset Verified 09/15/23 18:39 Stomach Penicillins AdvReac Severe vomiting Verified 09/15/23 18:39 Family History Mother Breast cancer Hypertension Hyperlipemia Cancer melanoma, lyphoma ulcers Father Diabetes Myocardial infarction, Onset Age: 67 Hypertension Depression Sister Depression Hyperlipemia Surgical History H/O: hysterectomy History of ankle surgery History of back surgery History of tonsillectomy Hx of colonoscopy Hx of right knee surgery Social History household members: friend(s) Smoking Status: Light Smoker (<10/day) Tobacco: How many years used: 25 second hand exposure: No alcohol intake: never substance use type: does not use what type of physical activity do you participate in: walking frequency: 3-4 times per week dari/oriental orthodox: Mandaen seatbelt use: sometimes ROS ROS Narrative Admission Review of Systems: CONSTITUTIONAL: No weight loss, fever, chills, + weakness or fatigue. HEENT: Eyes: No visual loss, blurred vision, double vision or yellow sclerae. Ears, Nose, Throat: No hearing loss, sneezing, congestion, runny nose or sore throat. SKIN: No rash or itching, lesions, wounds. CARDIOVASCULAR: + Chronic edema. No chest pain, chest pressure or chest discomfort, palpitations, orthopnea, syncopal events. RESPIRATORY: + Dyspnea, productive cough with green sputum, wheezing. No hemoptysis. GASTROINTESTINAL: No anorexia, nausea, vomiting or diarrhea, abdominal pain, melena, BRBPR. GENITOURINARY: No dysuria, frequency, urgency or retention. NEUROLOGICAL: No headache, dizziness, syncope, paralysis, ataxia, numbness or tingling in the extremities, focal weakness, change in bowel or bladder control, seizure. MUSCULOSKELETAL: + muscle, back pain, joint pain or stiffness. HEMATOLOGIC: + anemia. No bleeding or bruising. LYMPHATICS: No enlarged nodes. No history of splenectomy. PSYCHIATRIC: + History of anxiety and depression ENDOCRINOLOGIC: No reports of sweating, cold or heat intolerance. No polyuria or polydipsia. ALLERGIES: + Asthma and hives. Vital Signs Vital Signs Vital Signs: 09/15/23 18:33 09/15/23 18:41 09/15/23 19:10 Temperature 99.4 F H Temperature Source Oral Pulse Rate 83 Respiratory Rate 18 Respiratory Effort Short of Breath Respiratory Pattern Tachypnea Blood Pressure 152/79 H Blood Pressure Mean 103 Pulse Ox 94 Oxygen Delivery Method Nasal Cannula Nasal Cannula Oxygen Flow Rate (L/min) 3 3 09/15/23 20:53 09/15/23 20:59 09/15/23 20:09 Temperature 98.4 F Temperature Source Oral Pulse Rate 96 95 74 Respiratory Rate 22 H 26 H 24 H Respiratory Effort Respiratory Pattern Tachypnea Blood Pressure 142/83 H Blood Pressure Mean 102 Pulse Ox 87 90 Oxygen Delivery Method Nasal Cannula Nasal Cannula Oxygen Flow Rate (L/min) 3 5 09/15/23 21:30 09/15/23 21:45 09/15/23 22:00 Temperature Temperature Source Pulse Rate 92 94 95 Respiratory Rate 18 23 H 23 H Respiratory Effort Respiratory Pattern Blood Pressure 134/69 H 116/59 L 122/85 H Blood Pressure Mean 87 77 93 Pulse Ox Oxygen Delivery Method Oxygen Flow Rate (L/min) 09/15/23 22:15 Temperature Temperature Source Pulse Rate 91 Respiratory Rate 24 H Respiratory Effort Respiratory Pattern Blood Pressure 126/81 H Blood Pressure Mean 92 Pulse Ox Oxygen Delivery Method Oxygen Flow Rate (L/min) Weight Weight: 228 lb 9.91 oz Body Mass Index (BMI) 36.8 Physical Exam Narrative Physical Examination: General: Awake, alert, oriented x 3 and cooperative, seated upright in the ED bed, fatigued, notes feeling mildly improved since initial ED presentation, currently on 5 L nasal cannula, no evidence of any respiratory distress. Skin: Normal color, normal turgor, no icterus, no cyanosis except occasional staged ecchymoses, bilateral lower extremity mild venous stasis skin changes. HEENT: AT/NC, EOMI, PERRLA, mildly dry MM, no carotid bruits, difficult to discern JVD given thick neck. Lungs: Significantly diminished, diffusely, greater bases, mildly increased respiratory rate but currently no evidence of any distress, very soft end expiratory wheezing but distant, no rales or rhonchi. Heart: Regular rate and rhythm; no gallop, rub audible. Abdomen: Soft, obese, NTTP, mildly hyperactive BS, no obvious evidence of distention, unable to discern HSM given habitus. Extremities: No cyanosis, no clubbing, bilateral pedal to mid manuel chronic not markedly pitting edema. Neurological: Patient awake, alert, oriented as noted, cognitive function intact; pupils equally reactive to light and accommodation, cranial nerves grossly normal, moving all 4 extremities, no focal deficits, strength severely globally decreased secondary to acute presentation Psychiatric: Affect appears flat, fatigued, respiratory status improving as noted, no acute evidence of depressive or anxiety feelings but does have underlying history. Results Lab / Micro Data 09/15/23 18:47 09/15/23 18:47 Labs: Laboratory Results - last 24 hr 09/15/23 18:47: WBC 9.4, RBC 4.54, Hgb 11.5 L, Hct 37.5, MCV 82.6, MCH 25.3 L, MCHC 30.7 L, RDW Std Deviation 48.3 H, RDW Coeff of Dyana 16.0 H, Plt Count 267, MPV 9.7, Immature Gran % (Auto) 0.400, Neut % (Auto) 80.7 H, Lymph % (Auto) 10.2 L, [place] % (Auto) 6.8, Eos % (Auto) 1.3, Baso % (Auto) 0.6, Absolute Neuts (auto) 7.6, Absolute Lymphs (auto) 0.96, Nucleated RBC % 0, Sodium 133 L, Potassium 4.1, Chloride 99, Carbon Dioxide 33.0 H, Anion Gap 1 L, BUN 14, Creatinine 0.73, Estim Creat Clear Calc 95.96, Est GFR (MDRD) Af Amer 104, Est GFR (MDRD) Non-Af 86, BUN/Creatinine Ratio 19.3, Glucose 90, Calcium 9.1, Troponin I High Sens 5 Micro: Microbiology 09/15/23 19:20 Mucosa - Nose SARS-CoV-2, Influenza & RSV (PCR) - Final ABG Data ABG results: ABG 09/15/23 22:12 Specimen Type ART Sample Site R Radial pH 7.40 Bicarbonate Actual 31.7 H Total CO2 33 Base Excess 7 H O2 Saturation 90 L O2 % 6.0 ABG pCO2 50.7 H ABG pO2 60 L Fran Test Positive O2 Delivery Device Cannula Vent Mode Not entered Rhythm Strip Rhythm Strip: Sinus Rhythm Rate: 82 Ectopy: None Imaging Radiology Impression Chest X-Ray 09/15/23 19:35 IMPRESSION: Mild lower lung edema or infiltrates. Electronically Signed: Rajan Yanez MD at 20:55 EST , Assessment & Plan Assessment/Plan (1) Acute exacerbation of chronic obstructive pulmonary disease: PLAN: Plan The patient is a 63 y/o F w/ PMHx: Chronic anemia, Tobacco use, Anxiety and Depression, Chronic COPD/Asthma with Chronic Hypoxic Respiratory Failure (3L NC), HTN, HLD, Allergic Rhinitis, GERD w/ Hx GI Bleed, Epilepsy, Chronic pain syndrome, RLS who presents to the [facility] ED on 09/15/2023 with shortness of breath starting the evening prior with productive cough of green sputum with no recent fevers but worsened prompting her to call her credit or loans officer who prescribed her an antibiotic however she has not started it nor picked it up yet normally on 3 L nasal cannula and unfortunately continued to worsen with increasing dyspnea, wheezing both worse with exertion as well as worsening cough prompting eventual ED evaluation. #1. Acute on Chronic COPD/Asthma exacerbation w/ Acute on chronic hypoxic respiratory failure: Will admit to [facility], maintain on oxygen with wean as tolerated to home oxygen supplementation, continue ATC duonebs, PRN albuterol, IV methylprednisolone, HOB, IS parameters, will obtain sputum Cx, respiratory viral panel, procalcitonin, given productive cough pending procalcitonin, further evaluation as noted will initiate on antibiotic therapy with Levaquin given allergies/intolerances, but would de-escalate off if able. Low threshold to use BiPAP. #2. Anxiety and depression: We will continue patient home mirtazapine, escitalopram, benztropine, aripiprazole, buspirone home regimen. #3. Chronic pain syndrome: We will continue patient home buprenorphine regimen. #4. Allergic rhinitis: We will continue patient home cetirizine and fluticasone regimen. #5. Hypertension: Continue home regimen including lisinopril, hydrochlorothiazide, PRN hydralazine. #6. Hyperlipidemia: We will continue patient on fenofibrate regimen. #7. Obesity: Weight loss and lifestyle changes encouraged. #8. Tobacco Abuse: Encouraged cessation, inpatient consultation per RT, NR if desired. #9. GERD with history of previous GI bleed: We will continue patient on PPI. #10. Epilepsy: We will continue patient home pregabalin regimen. #11. Restless leg syndrome: Per current list not on chronic regimen, may add if necessary. #12. Chronic normocytic anemia: Admission hemoglobin 11.5, MCV 82.6, baseline hemoglobin primarily 11 range, stable, continue to trend and further investigate outpatient. #13. DVT prophylaxis: Lovenox. #14. CODE status: Patient ALEXIS is her sister and living will is currently in place. Discussed CODE status at length including difference between FULL code, DNR-CCA and DNR-CC status. Following discussions about the differences in these status, requested Full Code status. Advanced Care Planning Face to Face Time: 16 minutes. Charges/Coding Visit Charges Inpatient E&M: 03702 Init Hosp L3 Procedures Hospitalists Procedures: 05666 Advncd Care Plan 30 Min
[2023-09-16] VITALS (16 sets, daily range): BP systolic 113–144; BP diastolic 75–100; PULSE 72–103; RESP 15–24; TEMP 36.2–36.6; O2SAT 87–96; BMI 36.2
--- NOTE | 2023-09-16 | NURSING ---
Buprenorphine patch to pt's left upper arm noted. Pt states she applies a new patch every and this current patch is from last ().
[2023-09-16] MEDS: oxyCODONE 5 MG Tablet PO (01:04)
[2023-09-16] MEDS: Acetaminophen 325 MG Tablet 650 MG PO ×2 (02:53→22:30)
[2023-09-16] MEDS: 0.9% Saline Lock 10 ML Syringe IV (02:58)
[2023-09-16 03:07] LABS: Absolute Lymphocyte Count 0.33 X10^3/uL (0.83-4.51); Absolute Neutrophil Count 7.5 X10^3/uL (2.0-7.7); Basophil# 0.01 X10^3/uL; Basophil% 0.1 % (0-1); Hematocrit 36.4 % (37-47); Hemoglobin 11.4 g/dL (12.0-15.0); Lymphocyte # 0.33 X10^3/ul (0.83-4.51); Lymphocyte % 4.2 % (19-41); Mean Corp Hgb Conc 31.3 g/dL (32-36); Mean Corpuscular Hgb 25.7 pg (27.0-32.0); Mean Corpuscular Volume 82.2 fL (81-99); Mean Platelet Vol. 9.6 fl (6.2-12.0); Monocyte# 0.06 X10^3/uL; Monocyte% 0.8 % (0-10); NRBC Flagged by Analyzer 0 % (0-5); Neutrophil % 94.5 % (47-70); POSITIVE DIFFERENTIAL YES; Platelet Count 265 K/mm3 (150-450); RBC Distribution Width CV 15.9 % (11.6-14.6); RBC Distribution Width SD 47.9 fl (35.1-43.9); Red Blood Count 4.43 M/mm3 (4.2-5.4); White Blood Count 7.9 K/mm3 (4.4-11.0)
[2023-09-16 03:26] LABS: ALB/GLOB Ratio 0.8 RATIO (0.9-2.4); AST(SGOT) 17 U/L (15-37); Alanine Aminotransfer ALT/SGPT 18 U/L (13-56); Albumin, Serum 2.8 g/dL (3.2-5.0); Alkaline Phosphatase 51 U/L (45-117); Anion Gap 4 (5-15); BUN 12 mg/dL (7-18); BUN/Creat Ratio 16.2 RATIO (10-20); Calcium,Total 8.7 mg/dL (8.5-10.1); Chloride 99 mmol/L (98-107); Creatinine, Serum 0.74 mg/dL (0.55-1.02); EST Glomerular Filtration Rate 84 mL/min (>60); Est Glom Filt Rate - Afr Amer 102 mL/min (>60); Estimated Creatinine Clearance 93.78 ml/min; Globulin 3.3 g/dL (2.2-4.2); Glucose 164 mg/dL (74-106); Potassium 4.5 mmol/L (3.5-5.1); Protein, Total 6.1 g/dL (6.4-8.2); Sodium Level 136 mmol/L (136-145)
[2023-09-16 03:45] LABS: Procalcitonin < 0.04 ng/mL (0.00-0.09)
[2023-09-16] MEDS: Nystatin Powder 15gm Bottle 1 APPLIC TOPICAL ×3 (05:59→22:25)
[2023-09-16] MEDS: levoFLOXacin 750 MG Tablet PO (05:59)
--- NOTE | 2023-09-16 06:53 | PCM.PN.HOSP ---
Reason for Visit Reason for Visit: Diagnoses Chronic obstructive pulmonary disease with (acute) exacerbation (09/15/23) Subjective Subjective Patient is a 63-year-old lady admitted with progressive shortness of breath diagnosed with acute on chronic hypoxic respiratory failure admitted to a monitored bed for further management Objective Data Objective Data Vital Signs: Vital Signs Temp Pulse Resp BP Pulse Ox O2 Del Method O2 Flow Rate 97.4 F L 72 15 113/75 92 Nasal Cannula 4 09/16/23 04:00 09/16/23 04:00 09/16/23 04:00 09/16/23 04:00 09/16/23 04:00 09/16/23 04:00 09/16/23 04:00 Oxygen Flow Rate (L/min) 4 Oxygen Delivery Method Nasal Cannula Weight: 101.9 kg Body Mass Index (BMI) 36.2 Intake & Output: Intake and Output for Last 24 Hours 09/14/23 09/15/23 09/16/23 23:59 23:59 23:59 Intake Total 1000 / 1000 Output Total 400 / 400 Balance 1000 / 1000 -400 / -400 Lab / Micro Data 09/16/23 03:00 09/16/23 03:00 Labs: Laboratory Results - last 24 hr 09/15/23 18:47: WBC 9.4, RBC 4.54, Hgb 11.5 L, Hct 37.5, MCV 82.6, MCH 25.3 L, MCHC 30.7 L, RDW Std Deviation 48.3 H, RDW Coeff of Dyana 16.0 H, Plt Count 267, MPV 9.7, Immature Gran % (Auto) 0.400, Neut % (Auto) 80.7 H, Lymph % (Auto) 10.2 L, [place] % (Auto) 6.8, Eos % (Auto) 1.3, Baso % (Auto) 0.6, Absolute Neuts (auto) 7.6, Absolute Lymphs (auto) 0.96, Nucleated RBC % 0, Sodium 133 L, Potassium 4.1, Chloride 99, Carbon Dioxide 33.0 H, Anion Gap 1 L, BUN 14, Creatinine 0.73, Estim Creat Clear Calc 95.96, Est GFR (MDRD) Af Amer 104, Est GFR (MDRD) Non-Af 86, BUN/Creatinine Ratio 19.3, Glucose 90, Calcium 9.1, Troponin I High Sens 5 09/16/23 03:00: WBC 7.9, RBC 4.43, Hgb 11.4 L, Hct 36.4 L, MCV 82.2, MCH 25.7 L, MCHC 31.3 L, RDW Std Deviation 47.9 H, RDW Coeff of Dyana 15.9 H, Plt Count 265, MPV 9.6, Immature Gran % (Auto) 0.400, Neut % (Auto) 94.5 H, Lymph % (Auto) 4.2 L, [place] % (Auto) 0.8, Eos % (Auto) 0.0, Baso % (Auto) 0.1, Absolute Neuts (auto) 7.5, Absolute Lymphs (auto) 0.33 L, Nucleated RBC % 0, Sodium 136, Potassium 4.5, Chloride 99, Carbon Dioxide 33.0 H, Anion Gap 4 L, BUN 12, Creatinine 0.74, Estim Creat Clear Calc 93.78, Est GFR (MDRD) Af Amer 102, Est GFR (MDRD) Non-Af 84, BUN/Creatinine Ratio 16.2, Glucose 164 H, Calcium 8.7, Total Bilirubin 0.30, AST 17, ALT 18, Alkaline Phosphatase 51, Total Protein 6.1 L, Albumin 2.8 L, Globulin 3.3, Albumin/Globulin Ratio 0.8 L, Procalcitonin < 0.04 Micro: Microbiology 09/16/23 01:09 Mucosa - Nasopharyngeal Respiratory Panel (PCR) - Final 09/15/23 19:20 Mucosa - Nose SARS-CoV-2, Influenza & RSV (PCR) - Final ABG Data ABG results: ABG 09/15/23 22:12 Specimen Type ART Sample Site R Radial pH 7.40 Bicarbonate Actual 31.7 H Total CO2 33 Base Excess 7 H O2 Saturation 90 L O2 % 6.0 ABG pCO2 50.7 H ABG pO2 60 L Fran Test Positive O2 Delivery Device Cannula Vent Mode Not entered Radiography Diagnostic Testing: Radiology Impression Chest X-Ray 09/15/23 19:35 IMPRESSION: Mild lower lung edema or infiltrates. Electronically Signed: Rajan Yanez MD at 20:55 EST , Rhythm Strip Rhythm Strip: Sinus Rhythm Rate: 82 Ectopy: None Physical Exam Narrative GENERAL: cooperative HEENT: Atraumatic; normocephalic EYES; Anicteric, Normal Conjunctiva NECK; supple, normal thyroid, RESPIRATORY: Diminished to auscultation CARDIOVASCULAR: Regular S1 S2, GI: soft, normoactive bowel sounds, : No Renal angle tenderness; EXTREMITIES: No edema, no clubbing, MUSCULOSKELETAL: no muscle wasting NEURO: Awake; no lateralizing signs. SKIN: No Rash PSYCH; Flat affect Assessment & Plan Assessment/Plan (1) Acute exacerbation of chronic obstructive pulmonary disease: PLAN: Plan Patient is a 63-year-old lady admitted with progressive shortness of breath diagnosed with acute on chronic hypoxic respiratory failure admitted to a monitored bed for further management 1. Acute hypoxic respiratory failure ? Secondary to COPD with acute exacerbation patient was managed on noninvasive ventilation BiPAP subsequently admitted to a monitored bed. Patient was treated with systemic steroid, bronchodilator treatment as well as antibiotics. Patient progressed being monitored with continuous pulse oximetry 2. Dyslipidemia -Patient is on fenofibrate 3. Hypertension - Blood pressure controlled, home medications continued with dose adjustment as needed 4. Class II obesity with BMI of 36.3 ? Weight loss advised 5. Chronic back pain ? Did continue patient home meds 6. Seizure disorder ? Patient pregabalin, did continue 7. GERD ? On PPI 8. Tobacco dependence - Counseled on cessation, offered nicotine patch for tobacco cravings 9. Depression with anxiety ? Did continue home meds 10. Essential tremors ? Symptomatic treatment 11. DVT prophylaxis ? On enoxaparin Time spent in the patient's overall evaluation,decision-making process, review of diagnostic data, adjustment of management, discussion with other providers, nursing nursing and ancillary staff involved in patient's care documentation, 50 Minutes Charges/Coding Visit Charges Inpatient E&M: 25662 Subs Hosp L3
[2023-09-16] MEDS: Enoxaparin 40 MG/0.4 ML Syringe SC (09:43)
[2023-09-16] MEDS: hydroCHLOROthiazide 12.5mg 12.5 MG PO (09:43)
[2023-09-16] MEDS: Lisinopril 20 MG Tablet PO (09:43)
[2023-09-16] MEDS: Pantoprazole Sodium 40 MG Tablet PO (09:43)
[2023-09-16] MEDS: ARIPiprazole 2 MG Tablet PO (09:43)
[2023-09-16] MEDS: Escitalopram Oxalate 20 MG Tablet PO (09:43)
[2023-09-16] MEDS: Fenofibrate 48 MG Tablet PO (09:43)
[2023-09-16] MEDS: Benztropine Mesylate 0.5 MG TABLET 1 MG PO ×2 (09:44→22:25)
--- NOTE | 2023-09-16 09:55 | CASEMGMT ---
AILIN GRAVES Assessment Face to Face with patient for initial transition planning/care coordination assessment. AILIN GRAVES introduced self and role at [facility], pt voices understanding. Pt is A&Ox4 and is resting comfortably in bed and is calm. Care providers, pharmacy, and demographics verified. Admitting dx: Acute on Chronic Hypoxic RF, COPD/ Asthma LACE Strata: 3 PCP: Rosalia Specialists: Maryan Welsh, Dr. Barillas (Neuro) Preferred Pharmacy: [facility] Insurance: [facility]/ [facility] Prescription Benefit: Yes LNOK: Amelia Green (POA) - Lives in [place] Living Arrangements: Pt lives alone in a single story apartment that is located on the 3 level of the building. Pt states that she cannot use the stairs and that she uses the elevator to access her apartment. ADLs/IADLs: Pt states that she is ind with ADLs but could use help with IADLs. Pt states that she has friends that are able to support her. Transportation: Pt states that she is able to drive but has not driven as much since she was placed on continuous oxygen. Pt states that her friends are able to drive her. DME: Pt wears 3L of O2 continuous via NC supplied through [employer] (confirmed by Jadyne).Pt does not use PAP machines. Pt states that she has a concentrator at home and portable tanks. Pt has a tank at bedside. Pt has a P. Ox. Pt states that she uses a rollator. Pt has a cane but does not use. Tub shower with GB and chair. HHC/SNF: Pt states history at the [facility]. Pt did not want to elaborate on these. Pt?s goal: Pt wants to return home after stay here at [facility] Plan: TBD. Pt is refusing SNF at this time. PT/OT eval pending. Pt states that she wants to wait and see how she does before looking into HHC or OP Therapy. CM to follow for safe DC. Bianca Washington RN, CM
[2023-09-16] MEDS: levETIRAcetam 750 MG Tablet PO ×2 (10:36→22:25)
[2023-09-16] MEDS: Baclofen 10 MG Tablet PO ×2 (12:19→22:30)
[2023-09-16] MEDS: Pregabalin 75 MG Capsule PO (14:03)
[2023-09-16] MEDS: busPIRone 5 MG Tablet PO ×2 (14:03→22:25)
[2023-09-16] MEDS: Mirtazapine 15 MG Tablet PO (22:26)
[2023-09-16] MEDS: Albuterol 2.5 MG/3 ML VIAL.NEB. INHALATION (22:52)
[2023-09-17] VITALS (10 sets, daily range): BP systolic 109–159; BP diastolic 74–99; PULSE 80–100; RESP 16–22; TEMP 36.2–36.6; O2SAT 91–98; BMI 35.5
[2023-09-17] MEDS: levoFLOXacin 750 MG Tablet PO (05:30)
[2023-09-17] MEDS: busPIRone 5 MG Tablet PO ×3 (05:30→20:52)
[2023-09-17] MEDS: guaiFENesin 10 ML UDC (200MG/10ML) 20 ML PO ×3 (05:30→23:50)
[2023-09-17] MEDS: Pregabalin 75 MG Capsule PO ×3 (05:31→20:52)
[2023-09-17] MEDS: Nystatin Powder 15gm Bottle 1 APPLIC TOPICAL ×3 (05:31→20:51)
[2023-09-17] MEDS: Baclofen 10 MG Tablet PO ×3 (06:27→21:15)
[2023-09-17] MEDS: Pantoprazole Sodium 40 MG Tablet PO (08:32)
[2023-09-17] MEDS: Lisinopril 20 MG Tablet PO (08:32)
[2023-09-17] MEDS: hydroCHLOROthiazide 12.5mg 12.5 MG PO (08:33)
[2023-09-17] MEDS: Escitalopram Oxalate 20 MG Tablet PO (08:33)
[2023-09-17] MEDS: Fenofibrate 48 MG Tablet PO (08:33)
[2023-09-17] MEDS: ARIPiprazole 2 MG Tablet PO (08:33)
[2023-09-17] MEDS: levETIRAcetam 750 MG Tablet PO ×2 (08:33→20:51)
[2023-09-17] MEDS: Benztropine Mesylate 0.5 MG TABLET 1 MG PO ×2 (08:34→20:52)
[2023-09-17] MEDS: Enoxaparin 40 MG/0.4 ML Syringe SC (08:35)
--- NOTE | 2023-09-17 08:37 | PCM.PN.HOSP ---
Reason for Visit Reason for Visit: Diagnoses Chronic obstructive pulmonary disease with (acute) exacerbation (09/15/23) Subjective Subjective Patient seen breathing continues to improve. Back to her baseline in terms of oxygen requirement Objective Data Objective Data Vital Signs: Vital Signs Temp Pulse Resp BP Pulse Ox O2 Del Method O2 Flow Rate 97.9 F 100 20 H 122/91 H 98 Nasal Cannula 3 09/17/23 03:00 09/17/23 03:00 09/17/23 03:00 09/17/23 03:00 09/17/23 07:52 09/17/23 07:52 09/17/23 07:52 Oxygen Flow Rate (L/min) 3 Oxygen Delivery Method Nasal Cannula Weight: 99.79 kg Body Mass Index (BMI) 35.5 Intake & Output: Intake and Output for Last 24 Hours 09/15/23 09/16/23 09/17/23 23:59 23:59 23:59 Intake Total 1000 / 1000 220 / 220 Output Total 1200 / 1500 800 / 800 Balance 1000 / 1000 -1200 / -1380 -580 / -580 Lab / Micro Data 09/16/23 03:00 09/16/23 03:00 Micro: Microbiology 09/16/23 01:09 Mucosa - Nasopharyngeal Respiratory Panel (PCR) - Final 09/15/23 19:20 Mucosa - Nose SARS-CoV-2, Influenza & RSV (PCR) - Final Rhythm Strip Rhythm Strip: Sinus Rhythm Rate: 82 Ectopy: None Physical Exam Narrative GENERAL: cooperative HEENT: Atraumatic; normocephalic EYES; Anicteric, Normal Conjunctiva NECK; supple, normal thyroid, RESPIRATORY: Diminished to auscultation CARDIOVASCULAR: Regular S1 S2, GI: soft, normoactive bowel sounds, : No Renal angle tenderness; EXTREMITIES: No edema, no clubbing, MUSCULOSKELETAL: no muscle wasting NEURO: Awake; no lateralizing signs. SKIN: No Rash PSYCH; Flat affect Assessment & Plan Assessment/Plan (1) Acute exacerbation of chronic obstructive pulmonary disease: PLAN: Plan Patient is a 63-year-old lady admitted with progressive shortness of breath diagnosed with acute on chronic hypoxic respiratory failure admitted to a monitored bed for further management 1. Acute hypoxic respiratory failure ? Secondary to COPD with acute exacerbation patient was managed on noninvasive ventilation BiPAP subsequently admitted to a monitored bed. Patient was treated with systemic steroid, bronchodilator treatment as well as antibiotics. Patient progressed being monitored with continuous pulse oximetry ? 09/17/2023; patient back to her baseline dose of oxygen requirement 3 L at rest. Do anticipate discharge in 1 to 2 days 2. Dyslipidemia -Patient is on fenofibrate 3. Hypertension - Blood pressure controlled, home medications continued with dose adjustment as needed 4. Class II obesity with BMI of 36.3 ? Weight loss advised 5. Chronic back pain ? Did continue patient home meds 6. Seizure disorder ? Patient pregabalin, did continue 7. GERD ? On PPI 8. Tobacco dependence - Counseled on cessation, offered nicotine patch for tobacco cravings 9. Depression with anxiety ? Did continue home meds 10. Essential tremors ? Symptomatic treatment 11. DVT prophylaxis ? On enoxaparin Time spent in the patient's overall evaluation,decision-making process, review of diagnostic data, adjustment of management, discussion with other providers, nursing nursing and ancillary staff involved in patient's care documentation, 35 Minutes Charges/Coding Visit Charges Inpatient E&M: 35355 Subs Hosp L2
[2023-09-17] MEDS: Albuterol 2.5 MG/3 ML VIAL.NEB. INHALATION ×2 (09:29→19:29)
[2023-09-17] MEDS: Buprenorphine 10 MCG PATCH.TDWK 2 PATCH TD (09:29)
[2023-09-17] MEDS: Senna/Docusate Sodium 1 Tablet 2 TABLET PO (09:29)
[2023-09-17 09:52] LABS: Absolute Lymphocyte Count 0.62 X10^3/uL (0.83-4.51); Absolute Neutrophil Count 8.6 X10^3/uL (2.0-7.7); Basophil# 0.01 X10^3/uL; Basophil% 0.1 % (0-1); Eosinophil# 0.01 X10^3/uL; Eosinophils% 0.1 % (0-5); Hematocrit 42.9 % (37-47); Hemoglobin 13.7 g/dL (12.0-15.0); Lymphocyte # 0.62 X10^3/ul (0.83-4.51); Lymphocyte % 6.3 % (19-41); Mean Corp Hgb Conc 31.9 g/dL (32-36); Mean Corpuscular Hgb 26.1 pg (27.0-32.0); Mean Corpuscular Volume 81.7 fL (81-99); Mean Platelet Vol. 9.7 fl (6.2-12.0); Monocyte# 0.48 X10^3/uL; Monocyte% 4.9 % (0-10); NRBC Flagged by Analyzer 0 % (0-5); Neutrophil % 87.8 % (47-70); Platelet Count 288 K/mm3 (150-450); RBC Distribution Width CV 15.4 % (11.6-14.6); RBC Distribution Width SD 45.8 fl (35.1-43.9); Red Blood Count 5.25 M/mm3 (4.2-5.4); White Blood Count 9.8 K/mm3 (4.4-11.0)
[2023-09-17 10:22] LABS: Anion Gap 8 (5-15); BUN 15 mg/dL (7-18); BUN/Creat Ratio 21.8 RATIO (10-20); Calcium,Total 10.2 mg/dL (8.5-10.1); Chloride 93 mmol/L (98-107); Creatinine, Serum 0.69 mg/dL (0.55-1.02); EST Glomerular Filtration Rate 91 mL/min (>60); Est Glom Filt Rate - Afr Amer 111 mL/min (>60); Estimated Creatinine Clearance 99.46 ml/min; Glucose 110 mg/dL (74-106); Potassium 4.1 mmol/L (3.5-5.1); Sodium Level 131 mmol/L (136-145)
[2023-09-17] MEDS: Budesonide Respules 0.5 MG/2 ML AMPUL.NEB. INHALATION ×2 (11:25→19:29)
[2023-09-17] MEDS: 0.9% Saline Lock 10 ML Syringe IV (13:50)
[2023-09-17] MEDS: Acetaminophen 325 MG Tablet 650 MG PO (16:21)
[2023-09-17] MEDS: Mirtazapine 15 MG Tablet PO (20:51)
[2023-09-18 04:34] VITALS: BMI 34.8
[2023-09-18 05:00] VITALS: BP 121/97; PULSE 78; RESP 16; TEMP 36.6; O2SAT 95
[2023-09-18] MEDS: levoFLOXacin 750 MG Tablet PO (05:17)
[2023-09-18] MEDS: busPIRone 5 MG Tablet PO (05:17)
[2023-09-18] MEDS: Pregabalin 75 MG Capsule PO (05:17)
[2023-09-18] MEDS: Nystatin Powder 15gm Bottle 1 APPLIC TOPICAL (05:17)
[2023-09-18 06:41] LABS: Absolute Neutrophil Count 7.8 X10^3/uL (2.0-7.7); Basophil# 0.01 X10^3/uL; Basophil% 0.1 % (0-1); Hematocrit 39.9 % (37-47); Hemoglobin 12.5 g/dL (12.0-15.0); Lymphocyte % 8.7 % (19-41); Mean Corp Hgb Conc 31.3 g/dL (32-36); Mean Corpuscular Hgb 25.9 pg (27.0-32.0); Mean Corpuscular Volume 82.6 fL (81-99); Mean Platelet Vol. 10.1 fl (6.2-12.0); Monocyte# 0.58 X10^3/uL; Monocyte% 6.3 % (0-10); NRBC Flagged by Analyzer 0 % (0-5); Neutrophil # 7.77 X10^3/uL (2.7-7.7); Platelet Count 277 K/mm3 (150-450); RBC Distribution Width CV 15.7 % (11.6-14.6); RBC Distribution Width SD 47.2 fl (35.1-43.9); Red Blood Count 4.83 M/mm3 (4.2-5.4); White Blood Count 9.2 K/mm3 (4.4-11.0)
[2023-09-18 07:05] VITALS: PULSE 85; RESP 20; O2SAT 96
[2023-09-18] MEDS: Budesonide Respules 0.5 MG/2 ML AMPUL.NEB. INHALATION (07:05)
[2023-09-18 08:06] LABS: Anion Gap 7 (5-15); BUN 30 mg/dL (7-18); BUN/Creat Ratio 33.9 RATIO (10-20); Calcium,Total 9.5 mg/dL (8.5-10.1); Chloride 94 mmol/L (98-107); Creatinine, Serum 0.88 mg/dL (0.55-1.02); EST Glomerular Filtration Rate 69 mL/min (>60); Est Glom Filt Rate - Afr Amer 83 mL/min (>60); Estimated Creatinine Clearance 77.25 ml/min; Glucose 115 mg/dL (74-106); Magnesium 2.9 mg/dL (1.6-2.6); Phosphorus 3.6 mg/dL (2.5-4.9); Potassium 4.1 mmol/L (3.5-5.1); Sodium Level 130 mmol/L (136-145)
[2023-09-18 08:45] VITALS: BP 135/85; PULSE 65; RESP 18; TEMP 36.8; O2SAT 95
[2023-09-18] MEDS: Lisinopril 20 MG Tablet PO (08:52)
[2023-09-18] MEDS: Pantoprazole Sodium 40 MG Tablet PO (08:52)
[2023-09-18] MEDS: Fenofibrate 48 MG Tablet PO (08:52)
[2023-09-18] MEDS: Enoxaparin 40 MG/0.4 ML Syringe SC (08:52)
[2023-09-18] MEDS: Escitalopram Oxalate 20 MG Tablet PO (08:53)
[2023-09-18] MEDS: ARIPiprazole 2 MG Tablet PO (08:53)
[2023-09-18] MEDS: Benztropine Mesylate 0.5 MG TABLET 1 MG PO (08:53)
[2023-09-18] MEDS: hydroCHLOROthiazide 12.5mg 12.5 MG PO (08:53)
[2023-09-18] MEDS: Acetaminophen 325 MG Tablet 650 MG PO (08:53)
[2023-09-18] MEDS: levETIRAcetam 750 MG Tablet PO (08:53)
[2023-09-18] MEDS: Baclofen 10 MG Tablet PO (08:54)
--- NOTE | 2023-09-18 09:07 | PCM.DC.SUM ---
Providers Date of Admission: 09/15/23 Date of Discharge: 09/18/23 Primary Care Physician: Dr. Nick Lindsey MD Reason For Visit: ACUTE ON CHRONIC HYPOXIC RESP FAILURE, COPD/ASTHMA Diagnosis Discharge Diagnosis (1) Acute exacerbation of chronic obstructive pulmonary disease: Status: Chronic Code(s): J44.1 - Chronic obstructive pulmonary disease with (acute) exacerbation Plan Patient is a 63-year-old lady admitted with progressive shortness of breath diagnosed with acute on chronic hypoxic respiratory failure admitted to a monitored bed for further management 1. Acute hypoxic respiratory failure ? Secondary to COPD with acute exacerbation patient was managed on noninvasive ventilation BiPAP subsequently admitted to a monitored bed. Patient was treated with systemic steroid, bronchodilator treatment as well as antibiotics. Patient progressed being monitored with continuous pulse oximetry ? 09/17/2023; patient back to her baseline dose of oxygen requirement 3 L at rest. Do anticipate discharge in 1 to 2 days 2. Dyslipidemia -Patient is on fenofibrate 3. Hypertension - Blood pressure controlled, home medications continued with dose adjustment as needed 4. Class II obesity with BMI of 36.3 ? Weight loss advised 5. Chronic back pain ? Did continue patient home meds 6. Seizure disorder ? Patient pregabalin, did continue 7. GERD ? On PPI 8. Tobacco dependence - Counseled on cessation, offered nicotine patch for tobacco cravings 9. Depression with anxiety ? Did continue home meds 10. Essential tremors ? Symptomatic treatment 11. DVT prophylaxis ? On enoxaparin Time spent in the patient's overall evaluation,decision-making process, review of diagnostic data, adjustment of management, discussion with other providers, nursing nursing and ancillary staff involved in patient's care documentation, 35 Minutes Medications at Discharge Home Medications buprenorphine 15 mcg/hour weekly transdermal patch 20 mcg topical TH PAIN 05/23/20 pregabalin 75 mg capsule 75 mg PO TID nerve pain 10/05/20 walker #1 ea 10/05/20 comp.stocking,thigh,long,x-lrg #4 ea 01/29/21 baclofen 20 mg tablet 10 mg (1/2 x 20 mg) PO TID PRN Spasms #30 tabs 04/11/21 fluticasone propionate 50 mcg/actuation nasal spray,suspension (Flonase Allergy Relief) 2 spray intranasal DAILY PRN allergy symptoms #15.8 mL 09/03/21 miscellaneous medical supply (Blood Pressure Cuff) #1 ea 05/06/22 nystatin 100,000 unit/gram topical powder 1 applic topical BID PRN rash #30 grams 05/06/22 compress.stocking,knee,reg,lrg #2 ea 03/19/23 cetirizine 10 mg tablet (Zyrtec) 10 mg PO DAILY PRN Congestion #90 tabs 03/24/23 escitalopram oxalate 20 mg tablet 20 mg PO DAILY DEPRESSION #90 tabs 03/30/23 lisinopril 20 mg-hydrochlorothiazide 12.5 mg tablet 1 tab PO DAILY blood pressure #90 tabs 03/30/23 fenofibrate nanocrystallized 48 mg tablet 48 mg PO DAILY CHOLESTEROL #90 tabs 04/07/23 walker (Ultra-Light Rollator [facility]) #1 ea 04/09/23 mirtazapine 15 mg tablet 15 mg PO QHS #90 tabs 05/26/23 budesonide 160 mcg-glycopyr 9 mcg-formot 4.8 mcg/actuation HFA inhaler (SuperLikersztri Aerosphere) 2 inh inhalation BID breathing #3 ea 06/10/23 omeprazole 40 mg capsule,delayed release 40 mg PO DAILY GERD #90 caps 06/29/23 Handicap Placard #1 ea 07/29/23 albuterol sulfate 90 mcg/actuation aerosol inhaler 2 puff inhalation Q4H PRN shortness of breath or wheezing #8.5 grams 08/13/23 nicotine 21mg/24hr-14mg/24hr-7mg/24hr daily transderm patches,sequentl See Rx Instructions transdermal .COMPLEX #56 patches 08/13/23 aripiprazole 2 mg tablet 2 mg PO DAILY mental health #90 tabs 08/17/23 benztropine 1 mg tablet 1 mg PO BID #60 tabs 08/17/23 buspirone 5 mg tablet 5 mg PO TID #270 tabs 09/01/23 levetiracetam 750 mg tablet 750 mg PO .B ID seizures 09/16/23 guaifenesin 1,200 mg tablet, extended release 12 hr (Mucus Relief ER) 1,200 mg PO BID #20 tabs 09/18/23 levofloxacin 750 mg tablet 750 mg PO DAILY@0600 #5 tabs 09/18/23 prednisone 20 mg tablet 20 mg PO BID #10 tabs 09/18/23 Physical Exam Narrative GENERAL: cooperative HEENT: Atraumatic; normocephalic EYES; Anicteric, Normal Conjunctiva NECK; supple, normal thyroid, RESPIRATORY: Diminished to auscultation CARDIOVASCULAR: Regular S1 S2, GI: soft, normoactive bowel sounds, : No Renal angle tenderness; EXTREMITIES: No edema, no clubbing, MUSCULOSKELETAL: no muscle wasting NEURO: Awake; no lateralizing signs. SKIN: No Rash PSYCH; Flat affect Weight / BMI Weight Weight: 98 kg Body Mass Index (BMI) 34.8 ABG / Lab / Microbiology Data 09/18/23 05:54 09/18/23 05:54 Laboratory: Laboratory Results - last 24 hr 09/17/23 09:37: WBC 9.8, RBC 5.25, Hgb 13.7, Hct 42.9, MCV 81.7, MCH 26.1 L, MCHC 31.9 L, RDW Std Deviation 45.8 H, RDW Coeff of [place] 15.4 H, Plt Count 288, MPV 9.7, Immature Gran % (Auto) 0.800, Neut % (Auto) 87.8 H, Lymph % (Auto) 6.3 L, [place] % (Auto) 4.9, Eos % (Auto) 0.1, Baso % (Auto) 0.1, Absolute Neuts (auto) 8.6 H, Absolute Lymphs (auto) 0.62 L, Nucleated RBC % 0, Sodium 131 L, Potassium 4.1, Chloride 93 L, Carbon Dioxide 30.0, Anion Gap 8, BUN 15, Creatinine 0.69, Estim Creat Clear Calc 99.46, Est GFR (MDRD) Af Amer 111, Est GFR (MDRD) Non-Af 91, BUN/Creatinine Ratio 21.8 H, Glucose 110 H, Calcium 10.2 H 09/18/23 05:54: WBC 9.2, RBC 4.83, Hgb 12.5, Hct 39.9, MCV 82.6, MCH 25.9 L, MCHC 31.3 L, RDW Std Deviation 47.2 H, RDW Coeff of [place] 15.7 H, Plt Count 277, MPV 10.1, Immature Gran % (Auto) 0.900, Neut % (Auto) 84.0 H, Lymph % (Auto) 8.7 L, [place] % (Auto) 6.3, Eos % (Auto) 0.0, Baso % (Auto) 0.1, Absolute Neuts (auto) 7.8 H, Absolute Lymphs (auto) 0.80 L, Nucleated RBC % 0, Sodium 130 L, Potassium 4.1, Chloride 94 L, Carbon Dioxide 29.0, Anion Gap 7, BUN 30 H, Creatinine 0.88, Estim Creat Clear Calc 77.25, Est GFR (MDRD) Af Amer 83, Est GFR (MDRD) Non-Af 69, BUN/Creatinine Ratio 33.9 H, Glucose 115 H, Calcium 9.5, Phosphorus 3.6, Magnesium 2.9 H Microbiology: Microbiology 09/17/23 04:50 Sputum, Expectorated/Coughed Gram Stain - Final 09/16/23 01:09 Mucosa - Nasopharyngeal Respiratory Panel (PCR) - Final 09/15/23 19:20 Mucosa - Nose SARS-CoV-2, Influenza & RSV (PCR) - Final D/C Instructions Discharge Diet: No restrictions Discharge Activity: Return to Normal Activity Call your doctor if you observe: Fever of 101 or Higher, Shortness of breath, Fainting spells and Chest pain Meaningful Use Info Meaningful Use Diagnoses (Choose all that apply): None applicable Discharge Plan Admission Admit Date/Time: 09/15/23 23:02 Attending Provider: Reyes Abernathy Primary Care Provider: Nick Lindsey Consulting Providers: Myriam Ferro Discharge Orders/Prescriptions Prescriptions: New levofloxacin 750 mg Tablet 750 mg PO DAILY@0600 Qty: 5 0RF prednisone 20 mg tablet 20 mg PO BID Qty: 10 0RF guaifenesin [Mucus Relief ER] 1,200 mg tablet extended release 12hr 1,200 mg PO BID Qty: 20 0RF Continued pregabalin 75 mg capsule 75 mg PO TID Patient Comments: take 1 capsule by mouth three times a day (DME) comp.stocking,thigh,long,x-lrg Misc See Rx Instructions .ROUTE .MEDSUPPLY Qty: 4 2RF Rx Instructions: As directed fluticasone propionate [Flonase Allergy Relief] 50 mcg/actuation spray,suspension 2 spray INTRANASAL DAILY PRN (Reason: allergy symptoms) Qty: 15.8 1RF Rx Instructions: administer into each nostril nystatin 100,000 unit/gram powder 1 applic topical BID PRN (Reason: rash) Qty: 30 0RF (DME) Blood Pressure Cuff Misc See Rx Instructions .Route Qty: 1 0RF Rx Instructions: Check blood pressure twice a day (DME) compress.stocking,knee,reg,lrg Misc See Rx Instructions .MEDSUPPLY Qty: 2 1RF Rx Instructions: wear daily for venous insufficiency 20-30 mmHg aripiprazole 2 mg tablet 2 mg PO DAILY Qty: 90 1RF benztropine 1 mg tablet 1 mg PO BID Qty: 60 5RF albuterol sulfate 90 mcg/actuation HFA aerosol inhaler 2 puff inhalation Q4H PRN (Reason: shortness of breath or wheezing) Qty: 8.5 6RF Rx Instructions: administer with spacer nicotine 21-14-7 mg/24 hr patch, TD daily, sequential See Rx Instructions transdermal .COMPLEX Qty: 56 0RF Rx Instructions: apply 1-21 mg NICOTINE PATCH daily for 28 days; follow with 1-14 mg PATCH daily for 14 days, then 1-7mg PATCH daily for 14 days transdermal buprenorphine 1 EACH patch weekly 20 mcg TOPICAL TH MDD thurs levetiracetam 750 mg tablet 750 mg PO .B ID Patient Comments: TAKE 1 TABLET BY MOUTH TWICE DAILY for seizure (DME) walker Misc See Rx Instructions .ROUTE .MEDSUPPLY Qty: 1 0RF Rx Instructions: rollator with wheels and a seat baclofen 20 mg tablet 10 mg PO TID PRN (Reason: Spasms) Qty: 30 1RF cetirizine [Zyrtec] 10 mg tablet 10 mg PO DAILY PRN (Reason: Congestion) Qty: 90 2RF escitalopram oxalate 20 mg tablet 20 mg PO DAILY Qty: 90 1RF lisinopril-hydrochlorothiazide 20-12.5 mg tablet 1 tab PO DAILY Qty: 90 1RF fenofibrate nanocrystallized 48 mg tablet 48 mg PO DAILY Qty: 90 3RF (DME) Ultra-Light Rollator Misc See Rx Instructions .Route Qty: 1 0RF Rx Instructions: As directed mirtazapine 15 mg tablet 15 mg PO QHS Qty: 90 1RF Breztri Aerosphere 160-9-4.8 mcg/actuation HFA aerosol inhaler 2 inh inhalation BID Qty: 3 3RF omeprazole 40 mg capsule,delayed release(DR/EC) 40 mg PO DAILY Qty: 90 1RF (DME) Handicap Placard See Rx Instructions .ROUTE .MEDSUPPLY Qty: 1 0RF Rx Instructions: As directed, length of time 3 years buspirone 5 mg tablet 5 mg PO TID Qty: 270 0RF Referrals / Follow Up: Nick Lindsey MD [Primary Care Provider] - Within 2 Weeks Disposition Disposition (needs filled in before D/C Order can be placed): Home, Self Care Charges/Coding Visit Charges Inpatient E&M: 24014 Disch Hosp >30min
--- NOTE | 2023-09-18 10:05 | CASEMGMT ---
Pt is back to Baseline oxygen and does not qualify for a new Rx per the pt supervisor inspection and testing. Pt seen walking in the halls with therapy and the pt states that she did good and is ready to go home today. Pt DC order placed. This RN CM to pt room at this time regarding DC. Pt states that she feels much stronger now after staying in the hospital. Pt states that she wants to DC home with no additional needs. Pt denies the need of HHC or OP therapy at this time. Pt only concern at this time is getting laundry done at home. SW updated on this and it doesn't appear that the pt qualifies for any resources regarding this concern. AILIN GRAVES back to pt room and the pt states that she is OK with this and will have her friends help her out. Pt denies further concerns at this time.
[2023-09-18 10:24] VITALS: O2SAT 89; O2SAT 93
--- NOTE | 2023-09-18 10:26 | PHA.DC.MC.R ---
Pharmacy [facility] Service has performed discharge medication reconciliation and counseling for this patient. The patient's discharge medication list was reviewed for discrepancies and discrepancies were resolved. The patient was counseled on the following discharge medications and changes in medications for homegoing were reviewed. The Reason for Use, instructions for use, and potential side effects were reviewed for all new medications. The patient's questions regarding all of their medications were answered. 1. Prednisone 20 mg PO BID x 5 days 2. Levofloxacin 750 mg PO Daily x 5 days 3. Guaifenesin 1200 mg PO BID x 10 days The patient was able to verbally demonstrate an understanding of their discharge medications. Medications at Discharge Home Medications buprenorphine 15 mcg/hour weekly transdermal patch 20 mcg topical TH PAIN 05/23/20 pregabalin 75 mg capsule 75 mg PO TID nerve pain 10/05/20 walker #1 ea 10/05/20 comp.stocking,thigh,long,x-lrg #4 ea 01/29/21 baclofen 20 mg tablet 10 mg (1/2 x 20 mg) PO TID PRN Spasms #30 tabs 04/11/21 fluticasone propionate 50 mcg/actuation nasal spray,suspension (Flonase Allergy Relief) 2 spray intranasal DAILY PRN allergy symptoms #15.8 mL 09/03/21 miscellaneous medical supply (Blood Pressure Cuff) #1 ea 05/06/22 nystatin 100,000 unit/gram topical powder 1 applic topical BID PRN rash #30 grams 05/06/22 compress.stocking,knee,reg,lrg #2 ea 03/19/23 cetirizine 10 mg tablet (Zyrtec) 10 mg PO DAILY PRN Congestion #90 tabs 03/24/23 escitalopram oxalate 20 mg tablet 20 mg PO DAILY DEPRESSION #90 tabs 03/30/23 lisinopril 20 mg-hydrochlorothiazide 12.5 mg tablet 1 tab PO DAILY blood pressure #90 tabs 03/30/23 fenofibrate nanocrystallized 48 mg tablet 48 mg PO DAILY CHOLESTEROL #90 tabs 04/07/23 mark (Ultra-Light Rollator misc) #1 ea 04/09/23 mirtazapine 15 mg tablet 15 mg PO QHS #90 tabs 05/26/23 budesonide 160 mcg-glycopyr 9 mcg-formot 4.8 mcg/actuation HFA inhaler (Breztri Aerosphere) 2 inh inhalation BID breathing #3 ea 06/10/23 omeprazole 40 mg capsule,delayed release 40 mg PO DAILY GERD #90 caps 06/29/23 Handicap Placard #1 ea 07/29/23 albuterol sulfate 90 mcg/actuation aerosol inhaler 2 puff inhalation Q4H PRN shortness of breath or wheezing #8.5 grams 08/13/23 nicotine 21mg/24hr-14mg/24hr-7mg/24hr daily transderm patches,sequentl See Rx Instructions transdermal .COMPLEX #56 patches 08/13/23 aripiprazole 2 mg tablet 2 mg PO DAILY mental health #90 tabs 08/17/23 benztropine 1 mg tablet 1 mg PO BID #60 tabs 08/17/23 buspirone 5 mg tablet 5 mg PO TID #270 tabs 09/01/23 levetiracetam 750 mg tablet 750 mg PO .B ID seizures 09/16/23 guaifenesin 1,200 mg tablet, extended release 12 hr (Mucus Relief ER) 1,200 mg PO BID #20 tabs 09/18/23 levofloxacin 750 mg tablet 750 mg PO DAILY@0600 #5 tabs 09/18/23 prednisone 20 mg tablet 20 mg PO BID #10 tabs 09/18/23
[2023-09-18] MEDS: guaiFENesin 10 ML UDC (200MG/10ML) 20 ML PO (11:10)
[2023-09-18 11:27] VITALS: BP 105/65; PULSE 82; RESP 18; TEMP 36.4; O2SAT 98
--- NOTE | 2023-09-18 12:03 | CHAPLAIN ---
Type of Pastoral Visit _x__ Initial Visit ___ Follow-up Visit ___ On-call Visit ___ General Patient Visit ___ Spiritual Assessment ___ Family Conference ___ Bereavement ___ Rapid Response ___ Code Blue ___ Other (describe below) Pastoral Care Referral From _x__ Patient ___ Family ___ Nurse ___ Physician ___ Integration Aide ___ Clay Pigeon Setter ___ Other (describe below) Sacrament/Intervention _x__ Active listening ___ Anointing ___ Congregation ___ Bereavement ___ Communion ___ Monika exploration ___ _x__ Life review _x__ Prayer ___ Reconciliation ___ Sacrament of Sick ___ Supportive presence ___ Wedding ___ Other (describe below) Pastoral Comments patient is welcoming and states that she is going home today; pt states her interest in having spiritual care and a prayer; pt reports a good situation at the [facility] where she lives and has many friends that are my family here; other family members live out of state but they call me a lot; pt states she gets her spiritual support from a Bible Study at the community and would like to go to caodaism more often for support but health limits her; pt has no other concerns at this time as she is thankful to have good care at hospital and is recovering
== END 2023-09-18 12:33 | disposition home or self-care (01) | DRG 133 ==
LOC: ED 19:29 → ICU 23:28 → PCU 09-17 18:30
PROVIDERS: Admitting Provider Family Medicine; Emergency Provider Emergency Medicine; PCP Internal Medicine; Visit Provider Internal Medicine
DX: J96.21 Acute and chronic respiratory failure with hypoxia (principal); J44.1 Chronic obstructive pulmonary disease with (acute) exacerbation; Z99.81 Dependence on supplemental oxygen; G40.909 Epilepsy, unspecified, not intractable, without status epilepticus; N18.9 Chronic kidney disease, unspecified; G25.81 Restless legs syndrome; I12.9 Hypertensive chronic kidney disease with stage 1 through stage 4 chronic kidney disease, or unspecified chronic kidney disease; F32.A Depression, unspecified; E78.00 Pure hypercholesterolemia, unspecified; K21.9 Gastro-esophageal reflux disease without esophagitis; J30.9 Allergic rhinitis, unspecified; G25.0 Essential tremor; M54.9 Dorsalgia, unspecified; F17.200 Nicotine dependence, unspecified, uncomplicated; F41.9 Anxiety disorder, unspecified; E66.9 Obesity, unspecified; G89.4 Chronic pain syndrome; Z11.52 Encounter for screening for COVID-19; Z68.36 Body mass index [BMI] 36.0-36.9, adult
CPT/HCPCS: 36415; 36600; 71046; 80048; 80053; 82803; 83735; 84100; 84145; 84484; 85025; 87070; 87205; 87631; 87633; 93005; 94640; 94668; 94762; 97162; 97166; 99285; 99406; J7030; P9612; A4216

== ENCOUNTER 2023-09-25 11:25 | Observation (INO) | payer MEDICAID, SELFPAY ==
[2023-09-25] VITALS (43 sets, daily range): BP systolic 124–167; BP diastolic 69–122; PULSE 63–91; RESP 13–24; TEMP 35.7–36.9; O2SAT 86–96; BMI 35.9; BMI 34.2
--- NOTE | 2023-09-25 11:47 | RAD_ITS ---
STUDY: X-RAY CHEST REASON FOR EXAM: Female, 63 years old. Dyspnea TECHNIQUE: Single AP portable view of the chest. COMPARISON: Comparison is made with prior study September 15, 2023. FINDINGS: EKG electrodes are seen. The lungs are clear and expanded. There is no demonstrated pleural abnormality. There is mild cardiac enlargement. Normal mediastinum and shyla. Normal visualized pulmonary arteries. There is atherosclerotic calcification of the aortic arch with tortuosity. Normal visualized thoracic spine. Normal visualized ribs, clavicles, and shoulders. There is no demonstrated abnormality of the visualized soft tissue structures of the upper abdomen. RAD/Chest 1 View (Portable) IMPRESSION: Mild cardiomegaly. The lungs are clear. Electronically Signed: Kody Lakhani MD at 12:38 EDT ,
--- NOTE | 2023-09-25 11:59 | ED.VIS.DYS ---
HPI History of Present Illness Chief Complaint: Shortness of Breath Narrative Narrative: 62-year-old female with history of COPD on oxygen 3 L at baseline presenting with shortness of breath. Patient states she was admitted to [facility] last week and ultimately discharged home with steroids and felt better until 3 days ago now she feels more rundown, weak, body aches, chills. She has not had a fever. She went to see her primary care physician today and after her visit was sent to the emergency room for reevaluation. Patient does feel like she is wheezing. She does not chest pain. No nausea or vomiting. [facility] Medical History Anxiety and depression Arthritis Asthma Chronic acquired lymphedema Chronic pain COPD (chronic obstructive pulmonary disease) Epilepsy Gastric reflux High cholesterol History of GI bleed Hyperlipidemia Hypertension Neuropathy Obesity Pharyngitis Restless legs Seasonal allergies Seizures Stasis dermatitis Tobacco abuse Venous insufficiency of both lower extremities Vitamin D deficiency Walker as ambulation aid Wears dentures Wears glasses Home Medications buprenorphine 15 mcg/hour weekly transdermal patch 20 mcg topical TH PAIN 05/23/20 [History Last Taken 09/10/23] pregabalin 75 mg capsule 75 mg PO TID nerve pain 10/05/20 [History Last Taken 10/27/22] walker #1 ea 10/05/20 [Rx Last Taken 02/24/21] comp.stocking,thigh,long,x-lrg #4 ea 01/29/21 [Rx Last Taken 02/24/21] fluticasone propionate 50 mcg/actuation nasal spray,suspension (Flonase Allergy Relief) 2 spray intranasal DAILY PRN allergy symptoms #15.8 mL 09/03/21 [Rx Last Taken Unknown] miscellaneous medical supply (Blood Pressure Cuff) #1 ea 05/06/22 [Rx Last Taken Unknown] compress.stocking,knee,reg,lrg #2 ea 03/19/23 [Rx Last Taken Unknown] escitalopram oxalate 20 mg tablet 20 mg PO DAILY DEPRESSION #90 tabs 03/30/23 [Rx Last Taken Unknown] lisinopril 20 mg-hydrochlorothiazide 12.5 mg tablet 1 tab PO DAILY blood pressure #90 tabs 03/30/23 [Rx Last Taken Unknown] fenofibrate nanocrystallized 48 mg tablet 48 mg PO DAILY CHOLESTEROL #90 tabs 04/07/23 [Rx Last Taken Unknown] walker (Ultra-Light Rollator misc) #1 ea 04/09/23 [Rx Last Taken Unknown] mirtazapine 15 mg tablet 15 mg PO QHS #90 tabs 05/26/23 [Rx Last Taken Unknown] budesonide 160 mcg-glycopyr 9 mcg-formot 4.8 mcg/actuation HFA inhaler (Breztri Aerosphere) 2 inh inhalation BID breathing #3 ea 06/10/23 [Rx Last Taken Unknown] omeprazole 40 mg capsule,delayed release 40 mg PO DAILY GERD #90 caps 06/29/23 [Rx Last Taken Unknown] Handicap Placard #1 ea 07/29/23 [Rx Last Taken Unknown] albuterol sulfate 90 mcg/actuation aerosol inhaler 2 puff inhalation Q4H PRN shortness of breath or wheezing #8.5 grams 08/13/23 [Rx Last Taken 09/25/23] nicotine 21mg/24hr-14mg/24hr-7mg/24hr daily transderm patches,sequentl See Rx Instructions transdermal .COMPLEX #56 patches 08/13/23 [Rx Last Taken Unknown] aripiprazole 2 mg tablet 2 mg PO DAILY mental health #90 tabs 08/17/23 [Rx Last Taken Unknown] benztropine 1 mg tablet 1 mg PO BID #60 tabs 08/17/23 [Rx Last Taken Unknown] buspirone 5 mg tablet 5 mg PO TID #270 tabs 09/01/23 [Rx Last Taken Unknown] levetiracetam 750 mg tablet 750 mg PO BID seizures 09/16/23 [History Last Taken Unknown] guaifenesin 1,200 mg tablet, extended release 12 hr (Mucus Relief ER) 1,200 mg PO BID #20 tabs 09/18/23 [Rx Last Taken Unknown] baclofen 20 mg tablet 20 mg PO TID PRN Spasms 09/25/23 [History Last Taken Unknown] Allergy/AdvReac Type Severity Reaction Status Date / Time clindamycin Allergy Hives Verified 09/25/23 11:27 aspirin AdvReac Severe Upset Verified 09/25/23 11:27 Stomach Penicillins AdvReac Severe vomiting Verified 09/25/23 11:27 Family History Mother Breast cancer Hypertension Hyperlipemia Cancer melanoma, lyphoma ulcers Father Diabetes Myocardial infarction, Onset Age: 67 Hypertension Depression Sister Depression Hyperlipemia Surgical History H/O: hysterectomy History of ankle surgery History of back surgery History of tonsillectomy Hx of colonoscopy Hx of right knee surgery Social History household members: friend(s) Smoking Status: Current every day smoker tobacco type: cigarettes Tobacco: How many years used: 25 second hand exposure: No alcohol intake: never substance use type: does not use what type of physical activity do you participate in: walking frequency: 3-4 times per week dari/oriental orthodox: [employer]ism seatbelt use: sometimes ROS ROS ED Constitutional Constitutional ED: Reports chills; Denies fever(s) or sweats Eyes Eyes: Denies blurry vision or change in vision ENT ENT ED: Denies ear pain or sore throat Cardiovascular Cardiovascular: Denies chest pain, palpitations or racing heartbeat Respiratory/Chest Respiratory/Chest: Reports cough, dyspnea and dyspnea on exertion; Denies sputum Gastrointestinal Gastrointestinal: Denies abdominal pain, constipation, diarrhea, nausea or vomiting Genitourinary Genitourinary ED: Denies dysuria, hematuria or urinary frequency Musculoskeletal Musculoskeletal: Reports myalgias; Denies arthralgias or neck pain Integumentary Denies abscess, Abrasions or rash Neurologic Neurologic: Denies headache(s), paresthesias or weakness Psychiatric Psychiatric: Denies anxiety, depression, suicidal ideation or suicidal thoughts Endocrine Endocrinology: Denies polydipsia or polyuria EXAM Physical Exam Const Vital Signs: 09/25/23 11:25 09/25/23 11:27 09/25/23 11:40 Temperature 96.3 F L 97.3 F L Temperature Source Temporal Temporal Pulse Rate 82 79 Respiratory Rate 20 H 23 H Respiratory Effort Short of Breath Labored Respiratory Depth Shallow Respiratory Pattern Tachypnea Blood Pressure 124/102 H 128/69 H Blood Pressure Mean 109 88 Pulse Ox 90 96 Oxygen Delivery Method Nasal Cannula Nasal Cannula Nasal Cannula Oxygen Flow Rate (L/min) 3 3 3 09/25/23 12:10 09/25/23 12:10 03/15/24 12:22 Temperature Temperature Source Pulse Rate 74 Respiratory Rate 23 H Respiratory Effort Respiratory Depth Respiratory Pattern Normal Blood Pressure Blood Pressure Mean Pulse Ox 95 Oxygen Delivery Method Nasal Cannula Nasal Cannula Oxygen Flow Rate (L/min) 2 3 09/25/23 12:27 09/25/23 13:00 09/25/23 13:25 Temperature 97.8 F 98.3 F Temperature Source Temporal Temporal Pulse Rate 77 87 81 Respiratory Rate 17 21 H 22 H Respiratory Effort Respiratory Depth Respiratory Pattern Blood Pressure 161/80 H 167/84 H 162/76 H Blood Pressure Mean 107 111 104 Pulse Ox 94 90 90 Oxygen Delivery Method Nasal Cannula Nasal Cannula Nasal Cannula Oxygen Flow Rate (L/min) 3 3 3 09/25/23 14:00 09/25/23 15:00 09/25/23 15:00 Temperature 97.5 F L 98.2 F Temperature Source Oral Temporal Pulse Rate 81 78 78 Respiratory Rate 16 16 16 Respiratory Effort Respiratory Depth Respiratory Pattern Blood Pressure 144/75 H 149/122 H 149/122 H Blood Pressure Mean 98 131 131 Pulse Ox 91 91 91 Oxygen Delivery Method Nasal Cannula Nasal Cannula Nasal Cannula Oxygen Flow Rate (L/min) 3 3 09/25/23 16:00 09/25/23 13:57 09/25/23 14:00 Temperature 98.4 F Temperature Source Temporal Pulse Rate 73 91 86 Respiratory Rate 18 17 24 H Respiratory Effort Respiratory Depth Respiratory Pattern Blood Pressure 144/88 H 144/75 H Blood Pressure Mean 106 96 Pulse Ox 92 Oxygen Delivery Method Nasal Cannula Oxygen Flow Rate (L/min) 3 09/25/23 14:10 09/25/23 14:15 09/25/23 14:20 Temperature Temperature Source Pulse Rate 82 88 78 Respiratory Rate 18 17 23 H Respiratory Effort Respiratory Depth Respiratory Pattern Blood Pressure 149/89 H Blood Pressure Mean 107 Pulse Ox Oxygen Delivery Method Oxygen Flow Rate (L/min) 09/25/23 14:30 09/25/23 14:40 09/25/23 14:45 Temperature Temperature Source Pulse Rate 79 83 Respiratory Rate 14 17 20 H Respiratory Effort Respiratory Depth Respiratory Pattern Blood Pressure 151/94 H 143/82 H Blood Pressure Mean 108 100 Pulse Ox Oxygen Delivery Method Oxygen Flow Rate (L/min) 09/25/23 14:50 09/25/23 15:00 09/25/23 15:10 Temperature Temperature Source Pulse Rate 80 81 Respiratory Rate 23 H 19 H 21 H Respiratory Effort Respiratory Depth Respiratory Pattern Blood Pressure 149/122 H Blood Pressure Mean 132 Pulse Ox Oxygen Delivery Method Oxygen Flow Rate (L/min) 09/25/23 15:20 09/25/23 15:25 09/25/23 15:30 Temperature Temperature Source Pulse Rate 79 75 Respiratory Rate 16 17 Respiratory Effort Respiratory Depth Respiratory Pattern Blood Pressure 136/93 H 144/85 H Blood Pressure Mean 107 98 Pulse Ox Oxygen Delivery Method Oxygen Flow Rate (L/min) 09/25/23 15:40 09/25/23 15:45 09/25/23 15:50 Temperature Temperature Source Pulse Rate 77 77 79 Respiratory Rate 18 16 16 Respiratory Effort Respiratory Depth Respiratory Pattern Blood Pressure 150/80 H Blood Pressure Mean 98 Pulse Ox Oxygen Delivery Method Oxygen Flow Rate (L/min) 09/25/23 16:00 09/25/23 16:10 09/25/23 16:15 Temperature Temperature Source Pulse Rate 72 75 72 Respiratory Rate 15 13 19 H Respiratory Effort Respiratory Depth Respiratory Pattern Blood Pressure 144/88 H 134/90 H Blood Pressure Mean 106 105 Pulse Ox Oxygen Delivery Method Oxygen Flow Rate (L/min) 09/25/23 16:20 Temperature Temperature Source Pulse Rate 77 Respiratory Rate 20 H Respiratory Effort Respiratory Depth Respiratory Pattern Blood Pressure Blood Pressure Mean Pulse Ox Oxygen Delivery Method Oxygen Flow Rate (L/min) Positive well nourished General Appearance ED: Negative for pallor HEENT Reports moist mucous membranes atraumatic Eyes PERRL and EOMs intact bilaterally Neck no lymphadenopathy and supple Resp Auscultation: wheezes throughout Cardio regular rate and regular rhythm GI non-tender and non-distended Neuro oriented x3 and CN's II-XII intact bilaterally Sensorium / Orientation: alert Psych mental status grossly normal Skin no wounds General Skin Exam: Negative for jaundice or pallor MDM MDM MDM Narrative Medical decision making narrative: Patient presenting with shortness of breath and history of COPD. He is on 3 L of baseline oximeter when she ambulates 85% on room air. CBC obtained to assess white blood cell count, hemoglobin, platelets. BMP to assess renal function, p.o., glucose. High-sensitivity troponin and EKG to assess for ischemia/dysrhythmia. Chest x-ray to rule out pneumonia. BNP to assess for CHF. Patient treated with Solu-Medrol and breathing treatments. CBC shows a leukocytosis of 13.9 however patient was given steroids be the reason. Hemoglobin 12.5. Renal function is normal. High-sensitivity troponin 21. BNP 325.5. EKG normal sinus rhythm with 76 beats minute without sign of ischemic change or ectopy. Workup ultimately differential unremarkable. Patient still hypoxic. She will need to be admitted for COPD. Discussed with hospitalist. Impression: 1. Hypoxic respiratory failure 2. COPD exacerbation Lab Data Attestation: I reviewed the patient's lab results. Labs: Laboratory Results - last 24 hr 09/25/23 12:20 WBC 13.9 H RBC 4.80 Hgb 12.5 Hct 39.7 MCV 82.7 MCH 26.0 L MCHC 31.5 L RDW Std Deviation 49.3 H RDW Coeff of [place] 16.4 H Plt Count 263 MPV 9.9 Immature Gran % (Auto) 1.700 H Neut % (Auto) 70.2 H Lymph % (Auto) 20.4 [place] % (Auto) 6.7 Eos % (Auto) 0.6 Baso % (Auto) 0.4 Absolute Neuts (auto) 9.8 H Absolute Lymphs (auto) 2.83 Nucleated RBC % 0 Sodium 140 Potassium 3.5 Chloride 104 Carbon Dioxide 33.0 H Anion Gap 3 L BUN 26 H Creatinine 0.89 Estim Creat Clear Calc 77.60 Est GFR (MDRD) Af Amer 82 Est GFR (MDRD) Non-Af 68 BUN/Creatinine Ratio 29.1 H Glucose 95 Calcium 9.3 Troponin I High Sens 21 B-Natriuretic Peptide 235.5 H Radiography Diagnostic Testing: Clinical Impression(s) from Imaging Studies Chest X-Ray 09/25/23 11:47 IMPRESSION: Mild cardiomegaly. The lungs are clear. Electronically Signed: Kody Lakhani MD at 12:38 EDT , Discharge Plan Disposition Disposition: Acute Care Hospital [facility] Discharge Date/Time: 09/25/23 17:40
[2023-09-25] MEDS: Albuterol 2.5 MG/3 ML VIAL.NEB. INHALATION (12:09)
[2023-09-25] MEDS: Ipratropium/Albuterol Sulfate 3 ML AMPUL.NEB INHALATION ×2 (12:09→19:55)
[2023-09-25] MEDS: MethylPREDNISolone 125 MG/2 ML Vial IV (12:18)
[2023-09-25] MEDS: 0.9% Normal Saline (1000mL) 1,000 ML 999 ML IV (12:18)
[2023-09-25 12:28] LABS: Absolute Lymphocyte Count 2.83 X10^3/uL (0.83-4.51); Absolute Neutrophil Count 9.8 X10^3/uL (2.0-7.7); Basophil# 0.05 X10^3/uL; Basophil% 0.4 % (0-1); Eosinophil# 0.09 X10^3/uL; Eosinophils% 0.6 % (0-5); Hematocrit 39.7 % (37-47); Hemoglobin 12.5 g/dL (12.0-15.0); Lymphocyte # 2.83 X10^3/ul (0.83-4.51); Lymphocyte % 20.4 % (19-41); Mean Corp Hgb Conc 31.5 g/dL (32-36); Mean Corpuscular Volume 82.7 fL (81-99); Mean Platelet Vol. 9.9 fl (6.2-12.0); Monocyte# 0.93 X10^3/uL; Monocyte% 6.7 % (0-10); NRBC Flagged by Analyzer 0 % (0-5); Neutrophil # 9.75 X10^3/uL (2.7-7.7); Neutrophil % 70.2 % (47-70); Platelet Count 263 K/mm3 (150-450); RBC Distribution Width CV 16.4 % (11.6-14.6); RBC Distribution Width SD 49.3 fl (35.1-43.9); White Blood Count 13.9 K/mm3 (4.4-11.0)
[2023-09-25 12:45] LABS: Anion Gap 3 (5-15); BUN 26 mg/dL (7-18); BUN/Creat Ratio 29.1 RATIO (10-20); Calcium,Total 9.3 mg/dL (8.5-10.1); Chloride 104 mmol/L (98-107); Creatinine, Serum 0.89 mg/dL (0.55-1.02); EST Glomerular Filtration Rate 68 mL/min (>60); Est Glom Filt Rate - Afr Amer 82 mL/min (>60); Glucose 95 mg/dL (74-106); Potassium 3.5 mmol/L (3.5-5.1); Sodium Level 140 mmol/L (136-145); Troponin-I HS 21 pg/mL (3.0-54.0)
[2023-09-25 17:19] LABS: BNP,B-Type NATRIURETIC PEPTIDE 235.5 pg/mL (0-100)
--- NOTE | 2023-09-25 18:20 | HP.PCM.HOS_ITS ---
HPI - General General Date of Admission: 09/25/23 HPI Narrative CASI APARICIO, is a 63 F who presents to the hospital with continued shortness of breath. She has more shortness of breath with activity than she does at rest. She does have a history of COPD and is was recently hospitalized for COPD exacerbation. She presents today because she states that she has not had any significant improvement since discharge and that she still gets very short of breath with ambulation. She does chronically wear 3 L at rest which she is currently wearing during this evaluation however per the ED physician's report, she did desaturate into the 80s with ambulation on her home 3 L of oxyge n. She does have some lower extremity edema and states that she was supposed to have an echo on October 04. BNP in the ER was slightly elevated but she denies any chest pain. No fevers or chills and chest x-ray is negative for any infection. [facility] Medical History (Updated 09/25/23 @ 18:05 by Erin Lanier) Anxiety and depression Arthritis Asthma Chronic acquired lymphedema Chronic pain COPD (chronic obstructive pulmonary disease) Depression Epilepsy Gastric reflux High cholesterol History of GI bleed Hyperlipidemia Hypertension Neuropathy Obesity On home oxygen therapy Pharyngitis Restless legs Seasonal allergies Seizures Smoker Stasis dermatitis Tobacco abuse Venous insufficiency of both lower extremities Vitamin D deficiency Walker as ambulation aid Wears dentures Wears glasses Home Medications buprenorphine 15 mcg/hour weekly transdermal patch 20 mcg topical TH PAIN 05/23/20 [History Last Taken 09/10/23] pregabalin 75 mg capsule 75 mg PO TID nerve pain 10/05/20 [History Last Taken 10/27/22] walker #1 ea 10/05/20 [Rx Last Taken 02/24/21] comp.stocking,thigh,long,x-lrg #4 ea 01/29/21 [Rx Last Taken 02/24/21] fluticasone propionate 50 mcg/actuation nasal spray,suspension (Flonase Allergy Relief) 2 spray intranasal DAILY PRN allergy symptoms #15.8 mL 09/03/21 [Rx Last Taken Unknown] miscellaneous medical supply (Blood Pressure Cuff) #1 ea 05/06/22 [Rx Last Taken Unknown] compress.stocking,knee,reg,lrg #2 ea 03/19/23 [Rx Last Taken Unknown] escitalopram oxalate 20 mg tablet 20 mg PO DAILY DEPRESSION #90 tabs 03/30/23 [Rx Last Taken Unknown] lisinopril 20 mg-hydrochlorothiazide 12.5 mg tablet 1 tab PO DAILY blood pressure #90 tabs 03/30/23 [Rx Last Taken Unknown] fenofibrate nanocrystallized 48 mg tablet 48 mg PO DAILY CHOLESTEROL #90 tabs 04/07/23 [Rx Last Taken Unknown] mark (Ultra-Light Rollator misc) #1 ea 04/09/23 [Rx Last Taken Unknown] mirtazapine 15 mg tablet 15 mg PO QHS #90 tabs 05/26/23 [Rx Last Taken Unknown] budesonide 160 mcg-glycopyr 9 mcg-formot 4.8 mcg/actuation HFA inhaler (Breztri Aerosphere) 2 inh inhalation BID breathing #3 ea 06/10/23 [Rx Last Taken Unknown] omeprazole 40 mg capsule,delayed release 40 mg PO DAILY GERD #90 caps 06/29/23 [Rx Last Taken Unknown] Handicap Placard #1 ea 07/29/23 [Rx Last Taken Unknown] albuterol sulfate 90 mcg/actuation aerosol inhaler 2 puff inhalation Q4H PRN shortness of breath or wheezing #8.5 grams 08/13/23 [Rx Last Taken 09/25/23] nicotine 21mg/24hr-14mg/24hr-7mg/24hr daily transderm patches,sequentl See Rx Instructions transdermal .COMPLEX #56 patches 08/13/23 [Rx Last Taken Unknown] aripiprazole 2 mg tablet 2 mg PO DAILY mental health #90 tabs 08/17/23 [Rx Last Taken Unknown] benztropine 1 mg tablet 1 mg PO BID #60 tabs 08/17/23 [Rx Last Taken Unknown] buspirone 5 mg tablet 5 mg PO TID #270 tabs 09/01/23 [Rx Last Taken Unknown] levetiracetam 750 mg tablet 750 mg PO BID seizures 09/16/23 [History Last Taken Unknown] guaifenesin 1,200 mg tablet, extended release 12 hr (Mucus Relief ER) 1,200 mg PO BID #20 tabs 09/18/23 [Rx Last Taken Unknown] baclofen 20 mg tablet 20 mg PO TID PRN Spasms 09/25/23 [History Last Taken Unknown] Allergy/AdvReac Type Severity Reaction Status Date / Time clindamycin Allergy Hives Verified 09/25/23 11:27 aspirin AdvReac Severe Upset Verified 09/25/23 11:27 Stomach Penicillins AdvReac Severe vomiting Verified 09/25/23 11:27 Family History Mother Breast cancer Hypertension Hyperlipemia Cancer melanoma, lyphoma ulcers Father Diabetes Myocardial infarction, Onset Age: 67 Hypertension Depression Sister Depression Hyperlipemia Surgical History H/O: hysterectomy History of ankle surgery History of back surgery History of tonsillectomy Hx of colonoscopy Hx of right knee surgery Social History household members: friend(s) Smoking Status: Current every day smoker tobacco type: cigarettes Tobacco: How many years used: 25 second hand exposure: No alcohol intake: never substance use type: does not use what type of physical activity do you participate in: walking frequency: 3-4 times per week dari/hindu: Taoism seatbelt use: sometimes ROS Constitutional Constitutional: Denies chills, fatigue, fever(s) or malaise Eyes Eyes: Denies blurry vision ENT HEENT: Denies headache(s) or nasal discharge Cardiovascular Cardiovascular: Reports edema; Denies chest pain, dyspnea on exertion or syncope Respiratory/Chest Respiratory/Chest: Reports productive cough and shortness of breath with exertion; Denies cough or shortness of breath at rest Gastrointestinal Gastrointestinal: Denies constipation, diarrhea, nausea or vomiting Genitourinary Genitourinary: Denies dysuria Neurologic Neurologic: Denies focal weakness, numbness or tremor(s) Psychiatric Psychiatric: Denies anxiety or depression Vital Signs Vital Signs Vital Signs: 09/25/23 11:25 09/25/23 11:27 09/25/23 11:40 Temperature 96.3 F L 97.3 F L Temperature Source Temporal Temporal Pulse Rate 82 79 Respiratory Rate 20 H 23 H Respiratory Effort Short of Breath Labored Respiratory Depth Shallow Respiratory Pattern Tachypnea Blood Pressure 124/102 H 128/69 H Blood Pressure Mean 109 88 Pulse Ox 90 96 Oxygen Delivery Method Nasal Cannula Nasal Cannula Nasal Cannula Oxygen Flow Rate (L/min) 3 3 3 09/25/23 12:10 09/25/23 12:10 09/25/23 12:22 Temperature Temperature Source Pulse Rate 74 Respiratory Rate 23 H Respiratory Effort Respiratory Depth Respiratory Pattern Normal Blood Pressure Blood Pressure Mean Pulse Ox 95 Oxygen Delivery Method Nasal Cannula Nasal Cannula Oxygen Flow Rate (L/min) 2 3 09/25/23 12:27 09/25/23 13:00 09/25/23 13:25 Temperature 97.8 F 98.3 F Temperature Source Temporal Temporal Pulse Rate 77 87 81 Respiratory Rate 17 21 H 22 H Respiratory Effort Respiratory Depth Respiratory Pattern Blood Pressure 161/80 H 167/84 H 162/76 H Blood Pressure Mean 107 111 104 Pulse Ox 94 90 90 Oxygen Delivery Method Nasal Cannula Nasal Cannula Nasal Cannula Oxygen Flow Rate (L/min) 3 3 3 09/25/23 14:00 09/25/23 15:00 09/25/23 15:00 Temperature 97.5 F L 98.2 F Temperature Source Oral Temporal Pulse Rate 81 78 78 Respiratory Rate 16 16 16 Respiratory Effort Respiratory Depth Respiratory Pattern Blood Pressure 144/75 H 149/122 H 149/122 H Blood Pressure Mean 98 131 131 Pulse Ox 91 91 91 Oxygen Delivery Method Nasal Cannula Nasal Cannula Nasal Cannula Oxygen Flow Rate (L/min) 3 3 09/25/23 16:00 09/25/23 16:55 09/25/23 17:00 Temperature 98.4 F 97.6 F L Temperature Source Temporal Temporal Pulse Rate 73 71 68 Respiratory Rate 18 19 H 19 H Respiratory Effort Respiratory Depth Respiratory Pattern Blood Pressure 144/88 H 136/78 H 140/81 H Blood Pressure Mean 106 97 100 Pulse Ox 92 93 94 Oxygen Delivery Method Nasal Cannula Nasal Cannula Nasal Cannula Oxygen Flow Rate (L/min) 3 3 3 09/25/23 17:39 09/25/23 13:57 09/25/23 14:00 Temperature 98.5 F Temperature Source Pulse Rate 68 91 86 Respiratory Rate 19 H 17 24 H Respiratory Effort Respiratory Depth Respiratory Pattern Blood Pressure 130/77 H 144/75 H Blood Pressure Mean 94 96 Pulse Ox 92 Oxygen Delivery Method Oxygen Flow Rate (L/min) 09/25/23 14:10 09/25/23 14:15 09/25/23 14:20 Temperature Temperature Source Pulse Rate 82 88 78 Respiratory Rate 18 17 23 H Respiratory Effort Respiratory Depth Respiratory Pattern Blood Pressure 149/89 H Blood Pressure Mean 107 Pulse Ox Oxygen Delivery Method Oxygen Flow Rate (L/min) 09/25/23 14:30 09/25/23 14:40 09/25/23 14:45 Temperature Temperature Source Pulse Rate 79 83 Respiratory Rate 14 17 20 H Respiratory Effort Respiratory Depth Respiratory Pattern Blood Pressure 151/94 H 143/82 H Blood Pressure Mean 108 100 Pulse Ox Oxygen Delivery Method Oxygen Flow Rate (L/min) 09/25/23 14:50 09/25/23 15:00 09/25/23 15:10 Temperature Temperature Source Pulse Rate 80 81 Respiratory Rate 23 H 19 H 21 H Respiratory Effort Respiratory Depth Respiratory Pattern Blood Pressure 149/122 H Blood Pressure Mean 132 Pulse Ox Oxygen Delivery Method Oxygen Flow Rate (L/min) 09/25/23 15:20 09/25/23 15:25 09/25/23 15:30 Temperature Temperature Source Pulse Rate 79 75 Respiratory Rate 16 17 Respiratory Effort Respiratory Depth Respiratory Pattern Blood Pressure 136/93 H 144/85 H Blood Pressure Mean 107 98 Pulse Ox Oxygen Delivery Method Oxygen Flow Rate (L/min) 09/25/23 15:40 09/25/23 15:45 09/25/23 15:50 Temperature Temperature Source Pulse Rate 77 77 79 Respiratory Rate 18 16 16 Respiratory Effort Respiratory Depth Respiratory Pattern Blood Pressure 150/80 H Blood Pressure Mean 98 Pulse Ox Oxygen Delivery Method Oxygen Flow Rate (L/min) 09/25/23 16:00 09/25/23 16:10 09/25/23 16:15 Temperature Temperature Source Pulse Rate 72 75 72 Respiratory Rate 15 13 19 H Respiratory Effort Respiratory Depth Respiratory Pattern Blood Pressure 144/88 H 134/90 H Blood Pressure Mean 106 105 Pulse Ox Oxygen Delivery Method Oxygen Flow Rate (L/min) 09/25/23 16:20 09/25/23 16:30 09/25/23 16:40 Temperature Temperature Source Pulse Rate 77 69 68 Respiratory Rate 20 H 16 19 H Respiratory Effort Respiratory Depth Respiratory Pattern Blood Pressure 147/90 H Blood Pressure Mean 107 Pulse Ox Oxygen Delivery Method Oxygen Flow Rate (L/min) 09/25/23 16:45 09/25/23 16:50 09/25/23 17:00 Temperature Temperature Source Pulse Rate 72 71 72 Respiratory Rate 19 H 15 15 Respiratory Effort Respiratory Depth Respiratory Pattern Blood Pressure 136/78 H 140/81 H Blood Pressure Mean 95 98 Pulse Ox Oxygen Delivery Method Oxygen Flow Rate (L/min) 09/25/23 17:10 09/25/23 17:15 09/25/23 17:20 Temperature Temperature Source Pulse Rate 70 66 67 Respiratory Rate 19 H 17 16 Respiratory Effort Respiratory Depth Respiratory Pattern Blood Pressure 140/76 H Blood Pressure Mean 93 Pulse Ox Oxygen Delivery Method Oxygen Flow Rate (L/min) 09/25/23 17:30 Temperature Temperature Source Pulse Rate 68 Respiratory Rate 17 Respiratory Effort Respiratory Depth Respiratory Pattern Blood Pressure 130/77 H Blood Pressure Mean 91 Pulse Ox Oxygen Delivery Method Oxygen Flow Rate (L/min) Weight Weight: 212 lb 4.882 oz Body Mass Index (BMI) 34.2 Physical Exam Narrative General: Alert, Oriented x3, Cooperative, No apparent distress HEENT: Atraumatic, PERRLA, EOMI, Normocephalic Oral: Moist Mucosa Neck: Supple, No JVD Lungs: Diminished, Normal air movement, No rhonchi, wheeze, No rales, tachypneic Cardiovascular: Regular rate, Regular Rhythm, Normal S1, Normal S2, No murmurs Abdomen: Soft, Non Tender, Non-Distended, No Hepato-splenomegaly Extremities: Bilateral edema, Capillary Refill Less than 3 Seconds Skin: No rashes, No breakdown Musculoskeletal: No Tenderness to Palpation of Joints or Extremities Neurological: No focal neurological deficits, Motor Exam 5/5 strength throughout, Sensory exam intact to light touch and pain Psych/Mental Status: Normal Affect, Appropriate Results Lab / Micro Data 09/25/23 12:20 09/25/23 12:20 Labs: Laboratory Results - last 24 hr 09/25/23 12:20: WBC 13.9 H, RBC 4.80, Hgb 12.5, Hct 39.7, MCV 82.7, MCH 26.0 L, MCHC 31.5 L, RDW Std Deviation 49.3 H, RDW Coeff of Dyana 16.4 H, Plt Count 263, MPV 9.9, Immature Gran % (Auto) 1.700 H, Neut % (Auto) 70.2 H, Lymph % (Auto) 20.4, Coke % (Auto) 6.7, Eos % (Auto) 0.6, Baso % (Auto) 0.4, Absolute Neuts (auto) 9.8 H, Absolute Lymphs (auto) 2.83, Nucleated RBC % 0, Sodium 140, Potassium 3.5, Chloride 104, Carbon Dioxide 33.0 H, Anion Gap 3 L, BUN 26 H, Creatinine 0.89, Estim Creat Clear Calc 77.60, Est GFR (MDRD) Af Amer 82, Est GFR (MDRD) Non-Af 68, BUN/Creatinine Ratio 29.1 H, Glucose 95, Calcium 9.3, Troponin I High Sens 21, B-Natriuretic Peptide 235.5 H Micro: Microbiology 09/25/23 12:20 Mucosa - Nose SARS-CoV-2, Influenza & RSV (PCR) - Final Imaging Radiology Impression Chest X-Ray 09/25/23 11:47 IMPRESSION: Mild cardiomegaly. The lungs are clear. Electronically Signed: Kody Lakhani MD at 12:38 EDT , Assessment & Plan Assessment/Plan (1) Acute exacerbation of chronic obstructive pulmonary disease: PLAN: Plan 1. Acute COPD exacerbation versus new heart failure ? BNP is elevated so we will trial her on a dose of IV Lasix ? Echo pending for the morning ? Continue with steroids and breathing treatments ? She does have a slight leukocytosis but this is likely due to her steroids. She is afebrile so we will hold antibiotics at this time ? Negative for COVID, flu, RSV 2. Essential HTN/HLD ? Blood pressure stable, can resume her home blood pressure medications ? Will trial her on x 1 dose of Lasix for possible heart failure as BNP is elevated ? Echo tomorrow ? Continue with her cholesterol medication ? Will monitor and make adjustments as necessary 3. Seizure disorder/nerve pain ? Stable ? Continue with her Keppra ? Continue with her Lyrica and topical buprenorphine 4. Anxiety/depression ? Stable ? Continue with her home medications 5. GERD ? Stable ? Continue with PPI DVT: Lovenox Charges/Coding Visit Charges Inpatient E&M: 13254 Init Hosp L2
[2023-09-25] MEDS: 0.9% Saline Lock 10 ML Syringe IV (19:01)
[2023-09-25] MEDS: Furosemide 20 MG/2 ML VIAL IV (19:01)
[2023-09-25] MEDS: Mirtazapine 15 MG Tablet PO ×2 (20:14)
[2023-09-25] MEDS: Benztropine Mesylate 0.5 MG TABLET 1 MG PO (20:14)
[2023-09-25] MEDS: levETIRAcetam 750 MG Tablet PO (20:14)
[2023-09-25] MEDS: Pregabalin 75 MG Capsule PO (20:14)
[2023-09-25] MEDS: busPIRone 5 MG Tablet PO (20:14)
[2023-09-26] VITALS (8 sets, daily range): BP systolic 107–153; BP diastolic 60–98; PULSE 63–78; RESP 18–20; TEMP 36.4–37; O2SAT 94–100
[2023-09-26] MEDS: Pregabalin 75 MG Capsule PO ×3 (05:49→21:53)
[2023-09-26] MEDS: busPIRone 5 MG Tablet PO ×3 (05:50→21:53)
[2023-09-26] MEDS: Baclofen 10 MG Tablet 20 MG PO (05:50)
--- NOTE | 2023-09-26 05:55 | ECHOCS_ITS ---
Reason For Study: Dyspnea/SOB Procedure This was a 2D Doppler, Color Flow transthoracic echocardiogram. Contrast injection was performed. The study was technically difficult. Exam performed portable in patient room. Left Ventricle Mild concentric left ventricular hypertrophy. The left ventricular ejection fraction is 60 %. Diastolic function is indeterminate. Right Ventricle Normal RV size. Moderate hypertrophy of the right ventricle. Mild to moderate global right ventricular systolic dysfunction. Atria There is mild biatrial dilatation. Mitral Valve Trivial mitral valve insufficiency. Tricuspid Valve The tricuspid valve is not well visualized. Aortic Valve Aortic sclerosis, no stenosis. Pulmonic Valve The pulmonic valve is not well visualized. Great Vessels Mildly dilated aortic root. Pericardium/Pleural Prominent epicardial fat pad. Medication Diluted definity 1.5ml given slow IV push to enhance endocardial definition. MMode/2D Measurements & Calculations LVIDd: 4.0 cm IVSd: 1.4 cm Ao root diam: 3.7 cm LVIDs: 2.5 cm LVPWd: 1.4 cm FS: 37.2 % LAV(MOD-bp): 37.8 ml LVAd ap4: 25.4 cm2 SV(MOD-sp4): 52.0 ml LAV(MOD-bp) Indexed: 18.4 ml/m2 LVLd ap4: 7.0 cm LAV(MOD-sp2): 33.7 ml EDV(MOD-sp4): 75.0 ml LAV(MOD-sp4): 37.0 ml EDV(sp4-el): 78.2 ml LVAs ap4: 12.3 cm2 LVLs ap4: 5.4 cm ESV(MOD-sp4): 23.0 ml ESV(sp4-el): 23.8 ml EF(MOD-sp4): 69.3 % EF(sp4-el): 69.6 % SV(sp4-el): 54.5 ml LA A4 area: 15.4 cm2 LA dimension(2D): 4.1 cm RA A4 area: 18.1 cm2 Time Measurements MV dec time: 0.25 sec Doppler Measurements & Calculations MV E max geraldo: 87.2 cm/sec Lat Peak E' Geraldo: 7.6 cm/sec Med Peak E' Geraldo: 8.9 cm/sec MV A max geraldo: 113.4 cm/sec E/E' lat: 11.4 E/E' med: 9.8 MV E/A: 0.77 MV dec slope: 346.1 cm/sec2 Ao V2 max: 178.4 cm/sec LV V1 max: 128.5 cm/sec Ao max P.7 mmHg LV V1 max P.6 mmHg Ao V2 mean: 112.9 cm/sec Ao mean P.9 mmHg Ao V2 VTI: 36.1 cm PA V2 max: 77.3 cm/sec ECHO/Echo Complete W/ Contrast Interpretation Summary Mild concentric left ventricular hypertrophy. The left ventricular ejection fraction is 60 %. Diastolic function is indetermi akash. Moderate hypertrophy of the right ventricle. Mild to moderate global right ventricular systolic dysfunction. Aortic sclerosis, no stenosis. Mildly dilated aortic root. The study was technically difficult. Recommend cardiac MRI for further assessment of the right ventricle. Ordering Physician: Chalino Tello Referring Physician: Nick Lindsey Performed By: Natalie Negrete, RDCS, RVT
[2023-09-26] MEDS: Ipratropium/Albuterol Sulfate 3 ML AMPUL.NEB INHALATION ×4 (08:08→20:10)
[2023-09-26] MEDS: Fenofibrate 48 MG Tablet PO (08:08)
[2023-09-26] MEDS: ARIPiprazole 2 MG Tablet PO (08:08)
[2023-09-26] MEDS: hydroCHLOROthiazide 12.5mg 12.5 MG PO (08:08)
[2023-09-26] MEDS: Benztropine Mesylate 0.5 MG TABLET 1 MG PO ×2 (08:08→21:53)
[2023-09-26] MEDS: Escitalopram Oxalate 20 MG Tablet PO (08:09)
[2023-09-26] MEDS: levETIRAcetam 750 MG Tablet PO ×2 (08:09→21:53)
[2023-09-26] MEDS: Enoxaparin 40 MG/0.4 ML Syringe SC (08:09)
[2023-09-26] MEDS: Pantoprazole Sodium 40 MG Tablet PO (08:09)
[2023-09-26] MEDS: Lisinopril 20 MG Tablet PO (08:09)
[2023-09-26] MEDS: 0.9% Saline Lock 10 ML Syringe IV ×2 (13:40→21:55)
--- NOTE | 2023-09-26 14:45 | CASEMGMT ---
AILIN GRAVES Chart review: Patient was admitted 09/14-09/18/23 for acute on chronic respiratory failure. See AILIN GRAVES assessment from 09/16/23. Patient was discharged to home with resumption of home oxygen through [employer] at 3lpm and follow-up plans in place. Patient returned to [facility] ED after being sent from PCP at follow-up appt. Patient states she was wearing oxygen as order and taking medications as prescribed. Patient states she needed longer prednisone taper. Patient to discharge home. AILIN GRAVES discussed Patient Link program with patient, patient agreeable to referral. Patient denies further needs at discharge. CM to continue to follow this patient and plan for a safe discharge.
--- NOTE | 2023-09-26 18:45 | PCM.PN.HOSP ---
Reason for Visit Reason for Visit: Diagnoses Chronic obstructive pulmonary disease with (acute) exacerbation (09/25/23) Subjective Subjective Patient was seen and examined today, she is currently on her home oxygen setting which is 3 L. I asked her whether she thought she could take care of herself at home and she told me she feels she is able to take care of herself and would not like to go to a nursing facility. Objective Data Objective Data Vital Signs: Vital Signs Temp Pulse Resp BP Pulse Ox O2 Del Method O2 Flow Rate 97.6 F L 70 18 120/60 95 Nasal Cannula 3 09/26/23 14:00 09/26/23 16:10 09/26/23 16:10 09/26/23 14:00 09/26/23 14:00 09/26/23 14:03 09/26/23 14:03 Oxygen Flow Rate (L/min) 3 Oxygen Delivery Method Nasal Cannula Weight: 96.3 kg Body Mass Index (BMI) 34.2 Intake & Output: Intake and Output for Last 24 Hours 09/24/23 09/25/23 09/26/23 23:59 23:59 23:59 Intake Total 1030 / 1030 Output Total 500 / 500 Balance 1030 / 1030 -500 / -500 Lab / Micro Data 09/25/23 12:20 09/25/23 12:20 Micro: Microbiology 09/25/23 12:20 Mucosa - Nose SARS-CoV-2, Influenza & RSV (PCR) - Final Radiography Diagnostic Testing: Radiology Impression Echocardiogram 09/26/23 05:55 Interpretation Summary Mild concentric left ventricular hypertrophy. The left ventricular ejection fraction is 60 %. Diastolic function is indeterminate. Moderate hypertrophy of the right ventricle. Mild to moderate global right ventricular systolic dysfunction. Aortic sclerosis, no stenosis. Mildly dilated aortic root. The study was technically difficult. Recommend cardiac MRI for further assessment of the right ventricle. Ordering Physician: Chalino Tello Referring Physician: Nick Lindsey Performed By: Natalie Negrete, RDCS, RVT Physical Exam Const alert, oriented x3 and no apparent distress General Appearance: cooperative, well kempt and well developed Orientation / Consciousness: awake, oriented to person, oriented to place and oriented to time HEENT normocephalic, head/scalp atraumatic and moist oral mucous membranes Eyes PERRL, EOMs intact bilaterally and conjunctivae normal Neck supple, no JVD, thyroid normal and no carotid bruits General: trachea midline Resp normal respiratory effort, no retractions and no use of accessory muscles Resp Narrative: Breath sounds are diminished bilaterally Auscultation: Negative for rales, rhonchi or wheezes Cardio regular rate, regular rhythm, S1 normal heart sound, S2 normal heart sound, no murmurs, no rub and no gallops GI normal to inspection, nondistended, normoactive bowel sounds, soft to palpation, non-tender and non-distended Extremity no clubbing, cyanosis or edema Skin no rashes or lesions noted General Skin Exam: no breakdown Neuro oriented x3, CN's II-XII intact bilaterally, moves all extremities, no focal motor deficits and no sensory deficits noted Sensorium / Orientation: awake and alert Speech: speech normal Psych affect normal Assessment & Plan Assessment/Plan (1) COPD with acute exacerbation: PLAN: Plan 1. Acute exacerbation of COPD-continue IV corticosteroids and aerosol treatments, monitor pulse ox, patient still smokes at home presently, patient's echocardiogram today showed a normal EF, there was evidence of mild to moderate global right ventricular systolic dysfunction #2 chronic hypoxic respiratory failure-patient is currently on her home oxygen setting at this time, she will need ambulatory pulse ox prior to discharge #3 essential hypertension-I have elected to change the patient's hydrochlorothiazide to furosemide to see if this improves her shortness of breath #4 seizure disorder-patient will remain on Keppra #5 chronic anxiety/depression-complicates care, medical course, recovery, and prognosis Total clinical time spent by myself addressing the patient's medical issues, reviewing all of her data, and collaborating with patient's care team: 35 minutes Charges/Coding Visit Charges Inpatient E&M: 27021 Subs Hosp L2
[2023-09-26] MEDS: Furosemide 40 MG Tablet PO (20:30)
[2023-09-27 02:10] VITALS: BP 143/90; PULSE 65; RESP 18; TEMP 36.6; O2SAT 95
[2023-09-27] MEDS: 0.9% Saline Lock 10 ML Syringe IV ×2 (05:13→13:36)
[2023-09-27] MEDS: Pregabalin 75 MG Capsule PO ×2 (05:13→13:36)
[2023-09-27] MEDS: busPIRone 5 MG Tablet PO ×2 (05:13→13:36)
[2023-09-27] MEDS: Baclofen 10 MG Tablet 20 MG PO (05:15)
[2023-09-27] MEDS: Acetaminophen 325 MG Tablet 650 MG PO (05:18)
[2023-09-27] MEDS: Ipratropium/Albuterol Sulfate 3 ML AMPUL.NEB INHALATION ×2 (07:01→11:09)
[2023-09-27 07:03] VITALS: PULSE 74; RESP 18; O2SAT 93
[2023-09-27 08:32] VITALS: BP 141/73; PULSE 66; RESP 18; TEMP 36.9; O2SAT 93
[2023-09-27] MEDS: Fenofibrate 48 MG Tablet PO (08:35)
[2023-09-27] MEDS: Enoxaparin 40 MG/0.4 ML Syringe SC (08:35)
[2023-09-27] MEDS: levETIRAcetam 750 MG Tablet PO (08:35)
[2023-09-27] MEDS: Escitalopram Oxalate 20 MG Tablet PO (08:35)
[2023-09-27] MEDS: Pantoprazole Sodium 40 MG Tablet PO (08:35)
[2023-09-27] MEDS: ARIPiprazole 2 MG Tablet PO (08:35)
[2023-09-27] MEDS: Benztropine Mesylate 0.5 MG TABLET 1 MG PO (08:35)
[2023-09-27] MEDS: Lisinopril 20 MG Tablet PO (08:36)
[2023-09-27 11:09] VITALS: PULSE 70; RESP 18
[2023-09-27 13:44] VITALS: O2SAT 93; O2SAT 95
[2023-09-27 13:58] VITALS: BP 124/85; PULSE 69; RESP 18; TEMP 36.4; O2SAT 95
--- NOTE | 2023-09-27 14:32 | PCM.DC ---
Discharge Instructions Diet Discharge Diet: No restrictions Activity Discharge Activity: Return to Normal Activity Weight Bearing Status: Full weight bearing Follow Up Care Test Results: Test results from this visit will be discussed in further detail at your follow-up appointment, if applicable. Discharge Plan Admission Admit Date/Time: 09/25/23 16:29 Primary Reason for Your Visit: Exacerbation of COPD Attending Provider: Gato Robert Primary Care Provider: Nick Lindsey Consulting Providers: Chalino Tello Instructions Additional Instructions / Restrictions: Wear 3 L of oxygen at rest and while ambulating Discharge Orders/Prescriptions Prescriptions: New prednisone 10 mg tablet 20 mg PO BID Qty: 30 0RF Rx Instructions: 2 tabs twice a day for 3 days, then 3 tabs once a day for 3 days, then 2 tabs once a day for 3 days, then 1 tab a day for 3 days then stop Continued pregabalin 75 mg capsule 75 mg PO TID (DME) comp.stocking,thigh,long,x-lrg Misc See Rx Instructions .ROUTE .MEDSUPPLY Qty: 4 2RF Rx Instructions: As directed fluticasone propionate [Flonase Allergy Relief] 50 mcg/actuation spray,suspension 2 spray INTRANASAL DAILY PRN (Reason: allergy symptoms) Qty: 15.8 1RF Rx Instructions: administer into each nostril (DME) Blood Pressure Cuff Misc See Rx Instructions .Route Qty: 1 0RF Rx Instructions: Check blood pressure twice a day (DME) compress.stocking,knee,reg,lrg Misc See Rx Instructions .MEDSUPPLY Qty: 2 1RF Rx Instructions: wear daily for venous insufficiency 20-30 mmHg aripiprazole 2 mg tablet 2 mg PO DAILY Qty: 90 1RF benztropine 1 mg tablet 1 mg PO BID Qty: 60 5RF albuterol sulfate 90 mcg/actuation HFA aerosol inhaler 2 puff inhalation Q4H PRN (Reason: shortness of breath or wheezing) Qty: 8.5 6RF Rx Instructions: administer with spacer nicotine 21-14-7 mg/24 hr patch, TD daily, sequential See Rx Instructions transdermal .COMPLEX Qty: 56 0RF Rx Instructions: apply 1-21 mg NICOTINE PATCH daily for 28 days; follow with 1-14 mg PATCH daily for 14 days, then 1-7mg PATCH daily for 14 days transdermal buprenorphine 1 EACH patch weekly 20 mcg TOPICAL TH MDD thurs levetiracetam 750 mg tablet 750 mg PO BID Patient Comments: TAKE 1 TABLET BY MOUTH TWICE DAILY for seizure guaifenesin [Mucus Relief ER] 1,200 mg tablet extended release 12hr 1,200 mg PO BID Qty: 20 0RF baclofen 20 mg tablet 20 mg PO TID PRN (Reason: Spasms) (DME) walker [facility] [place] See Rx Instructions .ROUTE .MEDSUPPLY Qty: 1 0RF Rx Instructions: rollator with wheels and a seat escitalopram oxalate 20 mg tablet 20 mg PO DAILY Qty: 90 1RF lisinopril-hydrochlorothiazide 20-12.5 mg tablet 1 tab PO DAILY Qty: 90 1RF fenofibrate nanocrystallized 48 mg tablet 48 mg PO DAILY Qty: 90 3RF (DME) Ultra-Light Rollator [facility] See Rx Instructions .Route Qty: 1 0RF Rx Instructions: As directed mirtazapine 15 mg tablet 15 mg PO QHS Qty: 90 1RF Breztri Aerosphere 160-9-4.8 mcg/actuation HFA aerosol inhaler 2 inh inhalation BID Qty: 3 3RF omeprazole 40 mg capsule,delayed release(DR/EC) 40 mg PO DAILY Qty: 90 1RF (DME) Handicap Placard See Rx Instructions .ROUTE .MEDSUPPLY Qty: 1 0RF Rx Instructions: As directed, length of time 3 years buspirone 5 mg tablet 5 mg PO TID Qty: 270 0RF Referrals / Follow Up: Nick Lindsey MD [Primary Care Provider] - Within 2 Weeks Disposition Disposition (needs filled in before D/C Order can be placed): Home, Self Care
--- NOTE | 2023-09-27 14:39 | DS.PCM_ITS ---
Providers Date of Admission: 09/25/23 Date of Discharge: 09/27/23 Primary Care Physician: Dr. Nick Lindsey MD Reason For Visit: COPD EXACERBATION Diagnosis Discharge Diagnosis (1) COPD with acute exacerbation: Status: Chronic Code(s): J44.1 - Chronic obstructive pulmonary disease with (acute) exacerbation Plan 1. Acute exacerbation of COPD-continue IV corticosteroids and aerosol treatments, monitor pulse ox, patient still smokes at home presently, patient's echocardiogram today showed a normal EF, there was evidence of mild to moderate global right ventricular systolic dysfunction #2 chronic hypoxic respiratory failure-patient is currently on her home oxygen setting at this time, she will need ambulatory pulse ox prior to discharge #3 essential hypertension-I have elected to change the patient's hydrochlorothiazide to furosemide to see if this improves her shortness of breath #4 seizure disorder-patient will remain on Keppra #5 chronic anxiety/depression-complicates care, medical course, recovery, and prognosis Acute hypoxic respiratory failure was ruled out Medications at Discharge Home Medications buprenorphine 15 mcg/hour weekly transdermal patch 20 mcg topical TH PAIN 05/23/20 pregabalin 75 mg capsule 75 mg PO TID nerve pain 10/05/20 walker #1 ea 10/05/20 comp.stocking,thigh,long,x-lrg #4 ea 01/29/21 fluticasone propionate 50 mcg/actuation nasal spray,suspension (Flonase Allergy Relief) 2 spray intranasal DAILY PRN allergy symptoms #15.8 mL 09/03/21 miscellaneous medical supply (Blood Pressure Cuff) #1 ea 05/06/22 compress.stocking,knee,reg,lrg #2 ea 03/19/23 escitalopram oxalate 20 mg tablet 20 mg PO DAILY DEPRESSION #90 tabs 03/30/23 lisinopril 20 mg-hydrochlorothiazide 12.5 mg tablet 1 tab PO DAILY blood pressure #90 tabs 03/30/23 fenofibrate nanocrystallized 48 mg tablet 48 mg PO DAILY CHOLESTEROL #90 tabs 04/07/23 walker (Ultra-Light Rollator misc) #1 ea 04/09/23 mirtazapine 15 mg tablet 15 mg PO QHS #90 tabs 05/26/23 budesonide 160 mcg-glycopyr 9 mcg-formot 4.8 mcg/actuation HFA inhaler (Breztri Aerosphere) 2 inh inhalation BID breathing #3 ea 06/10/23 omeprazole 40 mg capsule,delayed release 40 mg PO DAILY GERD #90 caps 06/29/23 Handicap Placard #1 ea 07/29/23 albuterol sulfate 90 mcg/actuation aerosol inhaler 2 puff inhalation Q4H PRN shortness of breath or wheezing #8.5 grams 08/13/23 nicotine 21mg/24hr-14mg/24hr-7mg/24hr daily transderm patches,sequentl See Rx Instructions transdermal .COMPLEX #56 patches 08/13/23 aripiprazole 2 mg tablet 2 mg PO DAILY mental health #90 tabs 08/17/23 benztropine 1 mg tablet 1 mg PO BID #60 tabs 08/17/23 buspirone 5 mg tablet 5 mg PO TID #270 tabs 09/01/23 levetiracetam 750 mg tablet 750 mg PO BID seizures 09/16/23 guaifenesin 1,200 mg tablet, extended release 12 hr (Mucus Relief ER) 1,200 mg PO BID #20 tabs 09/18/23 baclofen 20 mg tablet 20 mg PO TID PRN Spasms 09/25/23 prednisone 10 mg tablet 20 mg (2 x 10 mg) PO BID #30 tabs 09/27/23 Hospital Course Operations None Procedures None Summary of Care Provided Minutes Spent on Discharge: 31 Hospital Course: This 63-year-old white female was seen in the emergency room at [facility] with complaints of shortness of breath, patient was chronically on oxygen at home at 3 L. Workup in the emergency room included a chest x-ray which showed no evidence of pneumonia, patient had an slightly elevated white blood cell count at 13.9 however she had been on steroids as an outpatient. Patient was admitted to [place] [address] for COPD exacerbation, her pulse ox was monitored and she was given IV corticosteroids. Patient improved during her hospitalization, at the time of her discharge on 09/26/2022 she required 3 L of oxygen at rest and during ambulation to maintain her pulse ox above 90%. On 09/26/2022, patient was seen and examined: On examination she appeared in good health and spirits, she does not appear to be in any distress. Vital signs as documented. Skin warm and dry and without overt rashes. Neck without JVD, thyroid appears normal, trachea is midline, neck is supple. Lungs clear, normal air movement was noted. Heart exam notable for regular rhythm, normal sounds and absence of murmurs, rubs or gallops. Abdomen unremarkable and without evidence of organomegaly, masses, or abdominal aortic enlargement, bowel sounds are present in all 4 quadrants, no abdominal tenderness was noted. Extremities nonedematous, no cyanosis was noted, no clubbing was noted. Neuro: Cranial nerves II through XII are grossly intact, no focal motor deficits were noted, sensation to light touch and pinprick is intact, motor exam 5/5 throughout. Psych: Patient is alert and oriented x3, she does not appear anxious or depressed, she does not appear agitated. Patient was discharged home in stable condition on 09/26/2022. Weight / BMI Weight Weight: 96.3 kg Body Mass Index (BMI) 34.2 ABG / Lab / Microbiology Data 09/25/23 12:20 09/25/23 12:20 Microbiology: Microbiology 09/25/23 12:20 Mucosa - Nose SARS-CoV-2, Influenza & RSV (PCR) - Final D/C Instructions Discharge Diet: No restrictions Weight Bearing Status: Full weight bearing Meaningful Use Info Meaningful Use Diagnoses (Choose all that apply): None applicable Discharge Plan Admission Admit Date/Time: 09/25/23 16:29 Primary Reason for Your Visit: Exacerbation of COPD Attending Provider: Gato Robert Primary Care Provider: Nick Lindsey Consulting Providers: Chalino Tello Instructions Additional Instructions / Restrictions: Wear 3 L of oxygen at rest and while ambulating Discharge Orders/Prescriptions Prescriptions: New prednisone 10 mg tablet 20 mg PO BID Qty: 30 0RF Rx Instructions: 2 tabs twice a day for 3 days, then 3 tabs once a day for 3 days, then 2 tabs once a day for 3 days, then 1 tab a day for 3 days then stop Continued pregabalin 75 mg capsule 75 mg PO TID (DME) comp.stocking,thigh,long,x-lrg Misc See Rx Instructions .ROUTE .MEDSUPPLY Qty: 4 2RF Rx Instructions: As directed fluticasone propionate [Flonase Allergy Relief] 50 mcg/actuation spray,suspension 2 spray INTRANASAL DAILY PRN (Reason: allergy symptoms) Qty: 15.8 1RF Rx Instructions: administer into each nostril (DME) Blood Pressure Cuff Misc See Rx Instructions .Route Qty: 1 0RF Rx Instructions: Check blood pressure twice a day (DME) compress.stocking,knee,reg,lrg Misc See Rx Instructions .MEDSUPPLY Qty: 2 1RF Rx Instructions: wear daily for venous insufficiency 20-30 mmHg aripiprazole 2 mg tablet 2 mg PO DAILY Qty: 90 1RF benztropine 1 mg tablet 1 mg PO BID Qty: 60 5RF albuterol sulfate 90 mcg/actuation HFA aerosol inhaler 2 puff inhalation Q4H PRN (Reason: shortness of breath or wheezing) Qty: 8.5 6RF Rx Instructions: administer with spacer nicotine 21-14-7 mg/24 hr patch, TD daily, sequential See Rx Instructions transdermal .COMPLEX Qty: 56 0RF Rx Instructions: apply 1-21 mg NICOTINE PATCH daily for 28 days; follow with 1-14 mg PATCH daily for 14 days, then 1-7mg PATCH daily for 14 days transdermal buprenorphine 1 EACH patch weekly 20 mcg TOPICAL TH MDD thurs levetiracetam 750 mg tablet 750 mg PO BID Patient Comments: TAKE 1 TABLET BY MOUTH TWICE DAILY for seizure guaifenesin [Mucus Relief ER] 1,200 mg tablet extended release 12hr 1,200 mg PO BID Qty: 20 0RF baclofen 20 mg tablet 20 mg PO TID PRN (Reason: Spasms) (DME) walker Mis See Rx Instructions .ROUTE .MEDSUPPLY Qty: 1 0RF Rx Instructions: rollator with wheels and a seat escitalopram oxalate 20 mg tablet 20 mg PO DAILY Qty: 90 1RF lisinopril-hydrochlorothiazide 20-12.5 mg tablet 1 tab PO DAILY Qty: 90 1RF fenofibrate nanocrystallized 48 mg tablet 48 mg PO DAILY Qty: 90 3RF (DME) Ultra-Light Rollator Misc See Rx Instructions .Route Qty: 1 0RF Rx Instructions: As directed mirtazapine 15 mg tablet 15 mg PO QHS Qty: 90 1RF Breztri Aerosphere 160-9-4.8 mcg/actuation HFA aerosol inhaler 2 inh inhalation BID Qty: 3 3RF omeprazole 40 mg capsule,delayed release(DR/EC) 40 mg PO DAILY Qty: 90 1RF (DME) Handicap Placard See Rx Instructions .ROUTE .MEDSUPPLY Qty: 1 0RF Rx Instructions: As directed, length of time 3 years buspirone 5 mg tablet 5 mg PO TID Qty: 270 0RF Referrals / Follow Up: Nick Lindsey MD [Primary Care Provider] - Within 2 Weeks Disposition Disposition (needs filled in before D/C Order can be placed): Home, Self Care Charges/Coding Visit Charges Inpatient E&M: 35087 Disch Hosp >30min
--- NOTE | 2023-09-28 10:30 | CCN.REFER ---
VM LEFT FOR PATIENT TO RETURN CALL TO DISCUSS PATIENT LINK
== END 2023-09-27 15:42 | disposition home or self-care (01) | DRG 140 ==
LOC: ED 12:26 → MS3 09-26 07:21
PROVIDERS: Admitting Provider Family Medicine; Emergency Provider Student in an Organized Health Care Education/Training Program; PCP Internal Medicine; Visit Provider Internal Medicine
DX: J44.1 Chronic obstructive pulmonary disease with (acute) exacerbation (principal); J96.11 Chronic respiratory failure with hypoxia; G40.909 Epilepsy, unspecified, not intractable, without status epilepticus; Z99.81 Dependence on supplemental oxygen; I10 Essential (primary) hypertension; F32.A Depression, unspecified; E78.00 Pure hypercholesterolemia, unspecified; F17.210 Nicotine dependence, cigarettes, uncomplicated; K21.9 Gastro-esophageal reflux disease without esophagitis; F41.9 Anxiety disorder, unspecified; Z79.899 Other long term (current) drug therapy; Z79.51 Long term (current) use of inhaled steroids
CPT/HCPCS: 71045; 80048; 83880; 84484; 85025; 87631; 93005; 93306; 94640; 96372; 96374; 96375; 96376; 99221; 99285; 99406; J7030; Q9957; A4216; C8929; G0378; J1940

== ENCOUNTER → 2023-09-25 | Outpatient (CLI) | payer MEDICAID, SELFPAY ==
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
== END | disposition home or self-care (01) ==
LOC: LABSPEC 11:13
PROVIDERS: PCP Internal Medicine; Visit Provider Internal Medicine
DX: Z00.00 Encounter for general adult medical examination without abnormal findings (principal)
CPT/HCPCS: 87631

== ENCOUNTER 2023-10-02 20:06 | Inpatient (IN) | payer MEDICAID, SELFPAY ==
[2023-10-02 20:07] VITALS: PULSE 75; RESP 26; TEMP 36.9; O2SAT 90; O2SAT 92; BMI 36.8
--- NOTE | 2023-10-02 20:33 | RAD_ITS ---
STUDY: X-RAY CHEST REASON FOR EXAM: Female, 63 years old. cough/sob TECHNIQUE: AP portable COMPARISON: September 25, 2023 FINDINGS: There is left lower lobe pneumonic infiltrate. [Blunted left costophrenic angle possibly representing tiny effusion versus pleural thickening. Normal size heart. Normal mediastinum and shyla. Normal visualized pulmonary arteries. Mildly calcified aortic arch and descending thoracic aorta. Normal visualized thoracic spine. Normal visualized ribs, clavicles, and shoulders. There is no demonstrated abnormality of the visualized soft tissue structures of the upper abdomen. RAD/Chest 1 View (Portable) IMPRESSION: Findings which may be consistent with left lower lobe pneumonia and possible tiny pleural effusion. Electronically Signed: Demetrius Bruno MD at 21:21 EDT ,
--- NOTE | 2023-10-02 20:36 | EKG12_ITS ---
Test Reason : WEAKNESS Blood Pressure : / mmHG Vent. Rate : 113 BPM Atrial Rate : 117 BPM P-R Int : 184 ms QRS Dur : 082 ms QT Int : 334 ms P-R-T Axes : 075 016 057 degrees QTc Int : 458 ms Sinus tachycardia WITH FREQUENT PACS Low voltage QRS ABNORMAL BASELINE ARTIFACT Confirmed by Yared Roa ([id number]), publications editor WILLIAM ORTA ([id number]) on 10/06/2023 8:55:49 AM Referred By: Myriam Ferro Confirmed By:Yared Roa
--- NOTE | 2023-10-02 20:37 | EDS_ITS ---
HPI History of Present Illness Chief Complaint: Weakness Informant: patient and EMS Associated Symptoms cough Chest Pain: Positive for None Narrative Narrative: Cough, dyspnea, generalized weakness for the past 1-2 days. She is coughing up sputum but no blood that she knows of. Is green and thick. No chest discomfort. Swelling in her legs she does not think it is worse than usual. She lives at home with her mother. She has been extremely weak and EMS is gone to her home twice in the past 2 days to help her up. She has had some headaches but they have not been severe. No known fevers. No known sick contacts. On home oxygen 2 L. [facility] Medical History Anxiety and depression Arthritis Asthma Chronic acquired lymphedema Chronic pain COPD (chronic obstructive pulmonary disease) Depression Epilepsy Gastric reflux High cholesterol History of GI bleed Hyperlipidemia Hypertension Neuropathy Obesity On home oxygen therapy Pharyngitis Restless legs Seasonal allergies Seizures Smoker Stasis dermatitis Tobacco abuse Venous insufficiency of both lower extremities Vitamin D deficiency Walker as ambulation aid Wears dentures Wears glasses Home Medications buprenorphine 15 mcg/hour weekly transdermal patch 20 mcg topical TH PAIN 05/23/20 [History Last Taken 09/10/23] pregabalin 75 mg capsule 75 mg PO TID nerve pain 10/05/20 [History Last Taken 10/27/22] walker #1 ea 10/05/20 [Rx Last Taken 02/24/21] fluticasone propionate 50 mcg/actuation nasal spray,suspension (Flonase Allergy Relief) 2 spray intranasal DAILY PRN allergy symptoms #15.8 mL 09/03/21 [Rx Last Taken Unknown] miscellaneous medical supply (Blood Pressure Cuff) #1 ea 05/06/22 [Rx Last Taken Unknown] compress.stocking,knee,reg,lrg #2 ea 03/19/23 [Rx Last Taken Unknown] fenofibrate nanocrystallized 48 mg tablet 48 mg PO DAILY CHOLESTEROL #90 tabs 04/07/23 [Rx Last Taken Unknown] walker (Ultra-Light Rollator misc) #1 ea 04/09/23 [Rx Last Taken Unknown] mirtazapine 15 mg tablet 15 mg PO QHS #90 tabs 05/26/23 [Rx Last Taken Unknown] budesonide 160 mcg-glycopyr 9 mcg-formot 4.8 mcg/actuation HFA inhaler (Breztri Aerosphere) 2 inh inhalation BID breathing #3 ea 06/10/23 [Rx Last Taken Unknown] omeprazole 40 mg capsule,delayed release 40 mg PO DAILY GERD #90 caps 06/29/23 [Rx Last Taken Unknown] Handicap Placard #1 ea 07/29/23 [Rx Last Taken Unknown] albuterol sulfate 90 mcg/actuation aerosol inhaler 2 puff inhalation Q4H PRN shortness of breath or wheezing #8.5 grams 08/13/23 [Rx Last Taken 09/25/23] aripiprazole 2 mg tablet 2 mg PO DAILY mental health #90 tabs 08/17/23 [Rx Last Taken Unknown] benztropine 1 mg tablet 1 mg PO BID #60 tabs 08/17/23 [Rx Last Taken Unknown] buspirone 5 mg tablet 5 mg PO TID #270 tabs 09/01/23 [Rx Last Taken Unknown] levetiracetam 750 mg tablet 750 mg PO BID seizures 09/16/23 [History Last Taken Unknown] baclofen 20 mg tablet 20 mg PO TID PRN Spasms 09/25/23 [History Last Taken Unknown] compress.stocking,knee,reg,lrg #2 ea 10/02/23 [Rx Last Taken Unknown] escitalopram oxalate 20 mg tablet 20 mg PO DAILY DEPRESSION #90 tabs 10/02/23 [Rx Last Taken Unknown] guaifenesin 1,200 mg tablet, extended release 12 hr (Mucus Relief ER) 1,200 mg PO BID #20 tabs 10/02/23 [Rx Last Taken Unknown] ipratropium 0.5 mg-albuterol 3 mg (2.5 mg base)/3 mL nebulization soln 3 ml inhalation Q4H PRN shortness of breath or wheezing #90 mL 10/02/23 [Rx Last Taken Unknown] lisinopril 20 mg-hydrochlorothiazide 12.5 mg tablet 1 tab PO DAILY blood pressure #90 tabs 10/02/23 [Rx Last Taken Unknown] nebulizers #1 ea 10/02/23 [Rx Last Taken Unknown] Allergy/AdvReac Type Severity Reaction Status Date / Time clindamycin Allergy Hives Verified 10/02/23 09:47 aspirin AdvReac Severe Upset Verified 03/22/24 09:47 Stomach Penicillins AdvReac Severe vomiting Verified 10/02/23 09:47 Family History Mother Breast cancer Hypertension Hyperlipemia Cancer melanoma, lyphoma ulcers Father Diabetes Myocardial infarction, Onset Age: 67 Hypertension Depression Sister Depression Hyperlipemia Surgical History H/O: hysterectomy History of ankle surgery History of back surgery History of tonsillectomy Hx of colonoscopy Hx of right knee surgery Social History household members: friend(s) Smoking Status: Current every day smoker tobacco type: cigarettes Tobacco: How many years used: 25 second hand exposure: No alcohol intake: never substance use type: does not use what type of physical activity do you participate in: walking frequency: 3-4 times per week dari/jew: Jew seatbelt use: sometimes ROS ROS ED Constitutional Constitutional ED: Reports body ache(s), fatigue, headache(s) and malaise; Denies chills or fever(s) Eyes Eyes: Denies change in vision or diplopia ENT ENT ED: Denies rhinorrhea or sore throat Cardiovascular Cardiovascular: Reports leg edema; Denies chest pain or palpitations Respiratory/Chest Respiratory/Chest: Reports cough, dyspnea, dyspnea on exertion and sputum Gastrointestinal Gastrointestinal: Reports diarrhea; Denies abdominal pain, nausea or vomiting Genitourinary Genitourinary ED: Denies dysuria or hematuria Musculoskeletal Musculoskeletal: Denies back pain or neck pain Integumentary Denies abscess or rash Neurologic Neurologic: Reports headache(s); Denies paresthesias or weakness Psychiatric Psychiatric: Denies anxiety or suicidal thoughts EXAM Physical Exam Const Vital Signs: 10/02/23 20:07 10/02/23 20:38 10/02/23 20:40 Temperature 98.4 F Temperature Source Temporal Pulse Rate 75 Respiratory Rate 26 H Respiratory Pattern Blood Pressure 186/114 H Blood Pressure Mean 138 Pulse Ox 92 Oxygen Delivery Method Nasal Cannula Nasal Cannula Oxygen Flow Rate (L/min) 5 5 10/02/23 20:51 10/02/23 22:06 Temperature Temperature Source Pulse Rate 86 91 Respiratory Rate 22 H 25 H Respiratory Pattern Tachypnea Blood Pressure 128/87 H Blood Pressure Mean 100 Pulse Ox 86 Oxygen Delivery Method Nasal Cannula Oxygen Flow Rate (L/min) 3 Positive well nourished, well developed and obese Constitutional Narrative: Malaised-appearing, no distress General Appearance ED: well developed and NAD Nutritional Appearance: obese HEENT Reports moist mucous membranes normocephalic and atraumatic Eyes PERRL and EOMs intact bilaterally Neck full ROM, supple and no JVD Resp Resp Narrative: Mild tachypnea but no respiratory distress. Frequent bronchitic cough with some mild wheezes but otherwise diffusely and symmetrically diminished without other adventitious breath sounds. Cardio regular rate, regular rhythm and no murmurs Rate: Negative for tachycardic GI non-tender and non-distended Auscultation: normoactive bowel sounds Palpation: soft Back/Spine no CVA tenderness General Back: other FROM Extremity normal to inspection and no calf tenderness General Extremety ED: Yes edema; Negative for pulses abnormal or tenderness General Extremity: edema bilateral lower extremity Details: moderate (Symmetric to both knees, no tenderness. Changes of chronic stasis dermatitis.); Negative for pulses abnormal Neuro oriented x3, CN's II-XII intact bilaterally and no sensory deficits noted Sensorium / Orientation: awake and alert Motor Exam: strength 5/5 throughout Skin no rashes or lesions noted and no wounds MDM MDM MDM Narrative Medical decision making narrative: Patient given breathing treatments which may have helped her breathing some, she still having some mild dyspnea but no respiratory distress. Given her somn olence I did an ABG to evaluate for the possibility of hypercapnia, she is not acutely hypercapnic which is reassuring. Chest x-ray 1 view on my interpretation shows an early left lower lobe infiltrate. Radiology in agreement. Additionally her influenza swab came back positive. She states she was vaccinated against influenza this year. After the breathing treatments, she is requiring 5-6 L nasal cannula to keep her oxygen levels in the 90s. She is very weak and fatigued. I think she will have a hard time at home and therefore we are going to admit her to the hospital. Started Tamiflu and will start antibiotics given her leukocytosis. She is tachypnea, not in respiratory distress, right now does not require BiPAP but is on 6 L nasal cannula so we are going to admit her to PCU. Her cardiac studies look reasonable for her age and health right now; her EKG is of limited ability to interpret since she has a tremor artifact even after we waited a while after the nebulizer treatments, she is not having chest discomfort that sounds like unstable angina to me, and her troponin is within normal limits. Lab Data Attestation: I reviewed the patient's lab results. Labs: Laboratory Results - last 24 hr 10/02/23 20:30 WBC 16.7 H RBC 5.17 Hgb 13.3 Hct 43.9 MCV 84.9 MCH 25.7 L MCHC 30.3 L RDW Std Deviation 51.7 H RDW Coeff of Dyana 17.2 H Plt Count 231 MPV 10.0 Immature Gran % (Auto) 0.900 Neut % (Auto) 87.7 H Lymph % (Auto) 7.7 L Stephens % (Auto) 3.4 Eos % (Auto) 0.1 Baso % (Auto) 0.2 Absolute Neuts (auto) 14.6 H Absolute Lymphs (auto) 1.29 Nucleated RBC % 0 Sodium 138 Potassium 4.0 Chloride 96 L Carbon Dioxide 38.0 H Anion Gap 4 L BUN 28 H Creatinine 0.91 Estim Creat Clear Calc 76.94 Est GFR (MDRD) Af Amer 80 Est GFR (MDRD) Non-Af 66 BUN/Creatinine Ratio 30.7 H Glucose 83 Calcium 9.6 Troponin I High Sens 22 B-Natriuretic Peptide 293.5 H ABG Data ABG results: ABG 10/02/23 21:11 Specimen Type ART Sample Site L Radial pH 7.42 Bicarbonate Actual 36.5 H Total CO2 38 Base Excess 12 H O2 Saturation 94 L O2 % 5.0 ABG pCO2 56.5 H ABG pO2 74 L Fran Test Positive O2 Delivery Device Cannula Vent Mode Not entered Radiography Diagnostic Testing: Clinical Impression(s) from Imaging Studies Chest X-Ray 10/02/23 20:33 IMPRESSION: Findings which may be consistent with left lower lobe pneumonia and possible tiny pleural effusion. Electronically Signed: Demetrius Bruno MD at 21:21 EDT , Rhythm Strip Rhythm Strip: Sinus Tach Rate: 115 Ectopy: None EKG Initial EKG: Attestation: I personally reviewed and interpreted this EKG as follows: Interpretation: No Acute Injury Pattern and Sinus Tachycardia Comments: Artifact, low voltage but appears to show no acute injury pattern and sinus tachycardia Management Discussion w/another healthcare provider: Hospitalist Discharge Plan Triage Chief Complaint: Weakness Other Complaint: Confusion ED Provider: Rajan Carreno Dx/Rx/DC Orders Clinical Impression: Acute respiratory failure with hypoxia, COPD with acute exacerbation, Influenza and pneumonia, Influenza A Prescriptions: No Action pregabalin 75 mg capsule 75 mg PO TID fluticasone propionate [Flonase Allergy Relief] 50 mcg/actuation spray,suspension 2 spray INTRANASAL DAILY PRN (Reason: allergy symptoms) Qty: 15.8 1RF Rx Instructions: administer into each nostril (DME) Blood Pressure Cuff Misc See Rx Instructions .Route Qty: 1 0RF Rx Instructions: Check blood pressure twice a day (DME) compress.stocking,knee,reg,lrg Misc See Rx Instructions .MEDSUPPLY Qty: 2 1RF Rx Instructions: wear daily for venous insufficiency 20-30 mmHg aripiprazole 2 mg tablet 2 mg PO DAILY Qty: 90 1RF Patient Comments: pt. unsure if she takes or not benztropine 1 mg tablet 1 mg PO BID Qty: 60 5RF albuterol sulfate 90 mcg/actuation HFA aerosol inhaler 2 puff inhalation Q4H PRN (Reason: shortness of breath or wheezing) Qty: 8.5 6RF Rx Instructions: administer with spacer escitalopram oxalate 20 mg tablet 20 mg PO DAILY Qty: 90 1RF lisinopril-hydrochlorothiazide 20-12.5 mg tablet 1 tab PO DAILY Qty: 90 1RF (DME) compress.stocking,knee,reg,lrg Misc See Rx Instructions .ROUTE .MEDSUPPLY Qty: 2 0RF Rx Instructions: As directed (DME) nebulizers Misc See Rx Instructions .Route Qty: 1 0RF Rx Instructions: As directed ipratropium-albuterol 0.5 mg-3 mg(2.5 mg base)/3 mL solution for nebulization 3 ml inhalation Q4H PRN (Reason: shortness of breath or wheezing) Qty: 90 1RF guaifenesin [Mucus Relief ER] 1,200 mg tablet extended release 12hr 1,200 mg PO BID Qty: 20 0RF buprenorphine 1 EACH patch weekly 20 mcg TOPICAL TH MDD thurs levetiracetam 750 mg tablet 750 mg PO BID Patient Comments: TAKE 1 TABLET BY MOUTH TWICE DAILY for seizure baclofen 20 mg tablet 20 mg PO TID PRN (Reason: Spasms) (DME) [place] [facility] [place] Instructions .ROUTE .MEDSUPPLY Qty: 1 0RF Rx Instructions: rollator with wheels and a seat fenofibrate nanocrystallized 48 mg tablet 48 mg PO DAILY Qty: 90 3RF (DME) Ultra-Light Rollator Mis See Rx Instructions .Route Qty: 1 0RF Rx Instructions: As directed mirtazapine 15 mg tablet 15 mg PO QHS Qty: 90 1RF Breztri Aerosphere 160-9-4.8 mcg/actuation HFA aerosol inhaler 2 inh inhalation BID Qty: 3 3RF omeprazole 40 mg capsule,delayed release(DR/EC) 40 mg PO DAILY Qty: 90 1RF (DME) Handicap Placard See Rx Instructions .ROUTE .MEDSUPPLY Qty: 1 0RF Rx Instructions: As directed, length of time 3 years buspirone 5 mg tablet 5 mg PO TID Qty: 270 0RF Primary Care Provider: Nick Lindsey Referrals: Nick Lindsey MD [Primary Care Provider] -
[2023-10-02 20:40] VITALS: BP 186/114
[2023-10-02] MEDS: Ipratropium/Albuterol Sulfate 3 ML AMPUL.NEB INHALATION (20:50)
[2023-10-02 20:51] VITALS: PULSE 86; RESP 22
[2023-10-02] MEDS: Albuterol 2.5 MG/3 ML VIAL.NEB. INHALATION ×3 (20:51→21:19)
--- NOTE | 2023-10-02 20:52 | EKG12_ITS ---
Test Reason : WEAKNESS Blood Pressure : / mmHG Vent. Rate : 094 BPM Atrial Rate : 340 BPM P-R Int : 162 ms QRS Dur : 076 ms QT Int : 344 ms P-R-T Axes : 106 006 064 degrees QTc Int : 430 ms NSR WITH BASELINE ARTIFACT Low voltage QRS Possible Inferior infarct , age undetermined Abnormal ECG Confirmed by Yared Roa ([id number]), supervising film or videotape editor WILLIAM ORTA ([id number]) on 10/07/2023 9:52:56 AM Referred By: Myriam Ferro Confirmed By:Yared Roa
[2023-10-02 20:53] LABS: Absolute Lymphocyte Count 1.29 X10^3/uL (0.83-4.51); Absolute Neutrophil Count 14.6 X10^3/uL (2.0-7.7); Basophil# 0.04 X10^3/uL; Basophil% 0.2 % (0-1); Eosinophil# 0.01 X10^3/uL; Eosinophils% 0.1 % (0-5); Hematocrit 43.9 % (37-47); Hemoglobin 13.3 g/dL (12.0-15.0); Lymphocyte # 1.29 X10^3/ul (0.83-4.51); Lymphocyte % 7.7 % (19-41); Mean Corp Hgb Conc 30.3 g/dL (32-36); Mean Corpuscular Hgb 25.7 pg (27.0-32.0); Mean Corpuscular Volume 84.9 fL (81-99); Monocyte# 0.56 X10^3/uL; Monocyte% 3.4 % (0-10); NRBC Flagged by Analyzer 0 % (0-5); Neutrophil # 14.61 X10^3/uL (2.7-7.7); Neutrophil % 87.7 % (47-70); Platelet Count 231 K/mm3 (150-450); RBC Distribution Width CV 17.2 % (11.6-14.6); RBC Distribution Width SD 51.7 fl (35.1-43.9); Red Blood Count 5.17 M/mm3 (4.2-5.4); White Blood Count 16.7 K/mm3 (4.4-11.0)
[2023-10-02 21:12] LABS: Anion Gap 4 (5-15); BNP,B-Type NATRIURETIC PEPTIDE 293.5 pg/mL (0-100); BUN 28 mg/dL (7-18); BUN/Creat Ratio 30.7 RATIO (10-20); Calcium,Total 9.6 mg/dL (8.5-10.1); Chloride 96 mmol/L (98-107); Creatinine, Serum 0.91 mg/dL (0.55-1.02); EST Glomerular Filtration Rate 66 mL/min (>60); Est Glom Filt Rate - Afr Amer 80 mL/min (>60); Estimated Creatinine Clearance 76.94 ml/min; Glucose 83 mg/dL (74-106); Sodium Level 138 mmol/L (136-145); Troponin-I HS 22 pg/mL (3.0-54.0)
[2023-10-02 21:14] LABS: Allen Test Positive; Base Excess 12 mmol/L (-2 to +2); Bicarbonate 36.5 mmol/L (22-26); Blood Gas Specimen Type ART; Mode Not entered; O2 Delivery Device Cannula; PO2 74 mmHG (75-100); SITE L Radial; SO2 94 % (95-99); Total Carbon Dioxide 38 mmol/L; pCO2 56.5 mmHg (35-45); pH 7.42 (7.35-7.45)
[2023-10-02 22:06] VITALS: BP 128/87; PULSE 91; RESP 25; O2SAT 86
[2023-10-02] MEDS: Oseltamivir Phosphate 75 MG Capsule PO (22:23)
--- NOTE | 2023-10-02 23:36 | PCM.HP.STD ---
HPI - General General Date of Admission: 10/02/23 Date of Service: 10/02/23 Chief Complaint: Dyspnea, cough. HPI Narrative The patient is a 63 y/o F w/ PMHx: Chronic anemia, Tobacco use, Anxiety and Depression, Chronic COPD/Asthma with Chronic Hypoxic Respiratory Failure (3L NC), HTN, HLD, Allergic Rhinitis, GERD w/ Hx GI Bleed, Epilepsy, Chronic pain syndrome, RLS, recent discharge 09/27/23 following admission for COPD acute exacerbation discharged on prednisone taper who presents to the [facility] ED on 10/02/23 with history of 1 to 2 days of progressively worsening fatigue, malaise, cough with productive sputum noted to be thick and green with associated dyspnea worse with exertion with no recent increased weight gain or increased swelling above her baseline living at home with her mother requiring significant assist including called EMS twice to help her up with occasional mild headache but no recent fevers or chills nor any recent ill contacts but given ongoing symptoms prompted ED evaluation. Patient reports also recent loose stools. During recent presentation patient did have evaluation with echocardiogram 09/26/2023 with mild concentric LVH, LVEF 60%, diastolic function indeterminate, moderate hypertrophy RV, mild to moderate global RV systolic dysfunction, aortic sclerosis with no stenosis, mildly dilated aortic root. Workup in the ED included T98.4, heart rate 75, BP 186/114, respiratory rate 26, 92% on 5 L nasal cannula with earlier in the day internal medicine visit noted to be 90% oxygenation on 3 L nasal cannula at home baseline--> most recent repeat vitals BP 120/87, heart rate 91, respiratory rate 25, 86% on 3 L nasal cannula, CBC with WBC 16.7, hemoglobin 13.3, platelets 231 with left shift, ABG with pH 7.42, bicarb 36.5, O2 saturation 94%, pCO2 56.5, pO2 74, BMP with chloride 96, Comvax at 38, BUN/creatinine 28/0.91 otherwise not marked appearing, troponin 22, BNP 293.5, chest x-ray findings concerning for left lower lobe pneumonia and a possible tiny pleural effusion, rapid SARS COVID/RSV/influenza with positive influenza A, EKG SR without acute evidence of ischemia but poor given shaking In the ED patient ministered DuoNeb therapy and albuterol, solumedrol 125 mg IV x 1, levaquin 750 mg x 1 as well as Tamiflu 75 mg p.o. x 1. [facility] Medical History Anxiety and depression Arthritis Asthma Chronic acquired lymphedema Chronic pain COPD (chronic obstructive pulmonary disease) Depression Epilepsy Gastric reflux High cholesterol History of GI bleed Hyperlipidemia Hypertension Neuropathy Obesity On home oxygen therapy Pharyngitis Restless legs Seasonal allergies Seizures Smoker Stasis dermatitis Tobacco abuse Venous insufficiency of both lower extremities Vitamin D deficiency Walker as ambulation aid Wears dentures Wears glasses Home Medications buprenorphine 15 mcg/hour weekly transdermal patch 20 mcg topical TH PAIN 05/23/20 [History Last Taken 09/10/23] pregabalin 75 mg capsule 75 mg PO TID nerve pain 10/05/20 [History Last Taken 10/27/22] walker #1 ea 10/05/20 [Rx Last Taken 02/24/21] fluticasone propionate 50 mcg/actuation nasal spray,suspension (Flonase Allergy Relief) 2 spray intranasal DAILY PRN allergy symptoms #15.8 mL 09/03/21 [Rx Last Taken Unknown] miscellaneous medical supply (Blood Pressure Cuff) #1 ea 05/06/22 [Rx Last Taken Unknown] compress.stocking,knee,reg,lrg #2 ea 03/19/23 [Rx Last Taken Unknown] fenofibrate nanocrystallized 48 mg tablet 48 mg PO DAILY CHOLESTEROL #90 tabs 04/07/23 [Rx Last Taken Unknown] walker (Ultra-Light Rollator misc) #1 ea 04/09/23 [Rx Last Taken Unknown] mirtazapine 15 mg tablet 15 mg PO QHS #90 tabs 05/26/23 [Rx Last Taken Unknown] budesonide 160 mcg-glycopyr 9 mcg-formot 4.8 mcg/actuation HFA inhaler (Breztri Aerosphere) 2 inh inhalation BID breathing #3 ea 06/10/23 [Rx Last Taken Unknown] omeprazole 40 mg capsule,delayed release 40 mg PO DAILY GERD #90 caps 06/29/23 [Rx Last Taken Unknown] Handicap Placard #1 ea 07/29/23 [Rx Last Taken Unknown] albuterol sulfate 90 mcg/actuation aerosol inhaler 2 puff inhalation Q4H PRN shortness of breath or wheezing #8.5 grams 08/13/23 [Rx Last Taken 09/25/23] aripiprazole 2 mg tablet 2 mg PO DAILY mental health #90 tabs 08/17/23 [Rx Last Taken Unknown] benztropine 1 mg tablet 1 mg PO BID #60 tabs 08/17/23 [Rx Last Taken Unknown] buspirone 5 mg tablet 5 mg PO TID #270 tabs 09/01/23 [Rx Last Taken Unknown] levetiracetam 750 mg tablet 750 mg PO BID seizures 09/16/23 [History Last Taken Unknown] baclofen 20 mg tablet 20 mg PO TID PRN Spasms 09/25/23 [History Last Taken Unknown] compress.stocking,knee,reg,lrg #2 ea 10/02/23 [Rx Last Taken Unknown] escitalopram oxalate 20 mg tablet 20 mg PO DAILY DEPRESSION #90 tabs 10/02/23 [Rx Last Taken Unknown] guaifenesin 1,200 mg tablet, extended release 12 hr (Mucus Relief ER) 1,200 mg PO BID #20 tabs 10/02/23 [Rx Last Taken Unknown] ipratropium 0.5 mg-albuterol 3 mg (2.5 mg base)/3 mL nebulization soln 3 ml inhalation Q4H PRN shortness of breath or wheezing #90 mL 10/02/23 [Rx Last Taken Unknown] lisinopril 20 mg-hydrochlorothiazide 12.5 mg tablet 1 tab PO DAILY blood pressure #90 tabs 10/02/23 [Rx Last Taken Unknown] nebulizers #1 ea 10/02/23 [Rx Last Taken Unknown] Allergy/AdvReac Type Severity Reaction Status Date / Time clindamycin Allergy Hives Verified 10/02/23 09:47 aspirin AdvReac Severe Upset Verified 10/02/23 09:47 Stomach Penicillins AdvReac Severe vomiting Verified 10/02/23 09:47 Family History Mother Breast cancer Hypertension Hyperlipemia Cancer melanoma, lyphoma ulcers Father Diabetes Myocardial infarction, Onset Age: 67 Hypertension Depression Sister Depression Hyperlipemia Surgical History H/O: hysterectomy History of ankle surgery History of back surgery History of tonsillectomy Hx of colonoscopy Hx of right knee surgery Social History household members: friend(s) Smoking Status: Current every day smoker tobacco type: cigarettes Tobacco: How many years used: 25 second hand exposure: No alcohol intake: never substance use type: does not use what type of physical activity do you participate in: walking frequency: 3-4 times per week adri/christian: Gnosticist seatbelt use: sometimes ROS ROS Narrative Admission Review of Systems: CONSTITUTIONAL: No weight loss, fever, chills, + weakness or fatigue. HEENT: + Intermittent occasional mild headache. Eyes: No visual loss, blurred vision, double vision or yellow sclerae. Ears, Nose, Throat: No hearing loss, sneezing, congestion, runny nose or sore throat. SKIN: No rash or itching, lesions, wounds. CARDIOVASCULAR: + Chronic edema. No chest pain, chest pressure or chest discomfort, palpitations, orthopnea, syncopal events. RESPIRATORY: + Dyspnea, productive cough with productive sputum, wheezing. No hemoptysis. GASTROINTESTINAL: + Loose stools, anorexia. No nausea, vomiting, abdominal pain, melena, BRBPR. GENITOURINARY: No dysuria, frequency, urgency or retention. NEUROLOGICAL: + Intermittent occasional mild headache, known epilepsy. No dizziness, syncope, paralysis, ataxia, numbness or tingling in the extremities, focal weakness, change in bowel or bladder control. MUSCULOSKELETAL: + muscle, back pain, joint pain or stiffness. HEMATOLOGIC: + Anemia, eesy bleeding/bruising. PSYCHIATRIC: + History of anxiety and depression ENDOCRINOLOGIC: No reports of sweating, cold or heat intolerance. No polyuria or polydipsia. ALLERGIES: + History of asthma and hives. Vital Signs Vital Signs Vital Signs: 10/02/23 20:07 10/02/23 20:38 10/02/23 20:40 Temperature 98.4 F Temperature Source Temporal Pulse Rate 75 Respiratory Rate 26 H Respiratory Pattern Blood Pressure 186/114 H Blood Pressure Mean 138 Pulse Ox 92 Oxygen Delivery Method Nasal Cannula Nasal Cannula Oxygen Flow Rate (L/min) 5 5 10/02/23 20:51 10/02/23 22:06 Temperature Temperature Source Pulse Rate 86 91 Respiratory Rate 22 H 25 H Respiratory Pattern Tachypnea Blood Pressure 128/87 H Blood Pressure Mean 100 Pulse Ox 86 Oxygen Delivery Method Nasal Cannula Oxygen Flow Rate (L/min) 3 Weight Weight: 228 lb 6.382 oz Body Mass Index (BMI) 36.8 Physical Exam Narrative Physical Examination: General: Awake, alert, oriented to self, place, recent events despite notable exhaustion, remains cooperative, seated upright in the ED bed, notably fatigued, mildly increased RR but no distress but maintaining 88-89% on monitor oxygenation saunders. Skin: Normal color, normal turgor, no icterus, no cyanosis except occasional staged ecchymoses, bilateral lower extremity mild venous stasis skin changes. HEENT: AT/NC, EOMI, PERRLA, mildly dry MM, no carotid bruits, difficult to discern JVD given thick neck. Lungs: Diffusely diminished, greater bases, left potentially mildly more so than right, mildly increased respiratory rate but no evidence of any distress, occasional soft and expiratory wheeze, no marked rales or rhonchi. Heart: Currently regular rate and rhythm; no gallop, rub audible. Abdomen: Soft, obese, NTTP, distant BS, no obvious evidence of distention, unable to discern HSM given habitus. Extremities: No cyanosis, no clubbing, bilateral pedal to mid manuel 2+ pitting edema, chronic. Neurological: Patient awake, alert, oriented as noted, cognitive function intact; pupils equally reactive to light and accommodation, cranial nerves grossly normal, moving all 4 extremities, no focal deficits, strength severely globally decreased secondary to acute presentation and underlying comorbidities. Psychiatric: Affect appears flat, fatigued, no acute evidence of depressive or anxiety feelings but does have underlying history. Results Lab / Micro Data 10/02/23 20:30 10/02/23 20:30 Labs: Laboratory Results - last 24 hr 10/02/23 20:30: WBC 16.7 H, RBC 5.17, Hgb 13.3, Hct 43.9, MCV 84.9, MCH 25.7 L, MCHC 30.3 L, RDW Std Deviation 51.7 H, RDW Coeff of Dyana 17.2 H, Plt Count 231, MPV 10.0, Immature Gran % (Auto) 0.900, Neut % (Auto) 87.7 H, Lymph % (Auto) 7.7 L, Mayes % (Auto) 3.4, Eos % (Auto) 0.1, Baso % (Auto) 0.2, Absolute Neuts (auto) 14.6 H, Absolute Lymphs (auto) 1.29, Nucleated RBC % 0, Sodium 138, Potassium 4.0, Chloride 96 L, Carbon Dioxide 38.0 H, Anion Gap 4 L, BUN 28 H, Creatinine 0.91, Estim Creat Clear Calc 76.94, Est GFR (MDRD) Af Amer 80, Est GFR (MDRD) Non-Af 66, BUN/Creatinine Ratio 30.7 H, Glucose 83, Calcium 9.6, Troponin I High Sens 22, B-Natriuretic Peptide 293.5 H Micro: Microbiology 10/02/23 20:39 Mucosa - Nasopharyngeal SARS-CoV-2, Influenza & RSV (PCR) - Final Influenzae A ABG Data ABG results: ABG 10/02/23 21:11 Specimen Type ART Sample Site L Radial pH 7.42 Bicarbonate Actual 36.5 H Total CO2 38 Base Excess 12 H O2 Saturation 94 L O2 % 5.0 ABG pCO2 56.5 H ABG pO2 74 L Fran Test Positive O2 Delivery Device Cannula Vent Mode Not entered Imaging Radiology Impression Chest X-Ray 10/02/23 20:33 IMPRESSION: Findings which may be consistent with left lower lobe pneumonia and possible tiny pleural effusion. Electronically Signed: Demetrius Bruno MD at 21:21 EDT , Assessment & Plan Assessment/Plan (1) Influenza and pneumonia: PLAN: Plan The patient is a 63 y/o F w/ PMHx: Chronic anemia, Tobacco use, Anxiety and Depression, Chronic COPD/Asthma with Chronic Hypoxic Respiratory Failure (3L NC), HTN, HLD, Allergic Rhinitis, GERD w/ Hx GI Bleed, Epilepsy, Chronic pain syndrome, RLS, recent discharge 09/27/23 following admission for COPD acute exacerbation discharged on prednisone taper who presents to the [facility] ED on 10/02/23 with history of 1 to 2 days of progressively worsening fatigue, malaise, cough with productive sputum noted to be thick and green with associated dyspnea worse with exertion with no recent increased weight gain or increased swelling above her baseline living at home with her mother requiring significant assist including called EMS twice to help her up with occasional mild headache but no recent fevers or chills nor any recent ill contacts but given ongoing symptoms prompted ED evaluation. #1. Acute Hypoxia and Hypercarbia on Chronic hypoxic respiratory failure secondary to LLL Pneumonia with Acute Influenza A Viral Syndrome and concurrent Acute on Chronic COPD/Asthma exacerbation (pneumonia certainly could be viral however given recent admission unable to rule out gram-negative/gram-positive organism potential as superimposed bacterial component): Will admit to PCU, given notable fatigue will request BIPAP and once able wean to NC with wean as tolerated to home oxygen supplementation, will continue on Tamiflu regimen, continue ATC duonebs, PRN albuterol, maintain on IV solumedrol, maintain on IV Levaquin given PCN intolerance history with MRSA screen requested w/ de-escalation as able if more consistent with primarily viral pneumonia, HOB, IS parameters w/ pending sputum cultures, procalcitonin and urine antigens. Given patient complaint of loose stools will request C. difficile and enteric to be cautious as patient had recent abx during prior recent admission but again most likely secondary to her influenza presentation. Bld cx x 2 obtained in the ED. PT/OT/case management consultation for discharge planning. #2. Hypertension, uncontrolled: BP elevated upon ED presentation, likely related with acute presentation #1, will continue home regimen including lisinopril, given concern for mild dehydration will temporally hold hydrochlorothiazide but resume 10/03/2023, PRN hydralazine in interim as well. #3. Hyperlipidemia: We will continue patient on fenofibrate regimen. #4. Chronic normocytic anemia: Admission hemoglobin 13.3, MCV 84.9, baseline primarily 11, suspect falsely elevated, judiciously plan to hydrate and repeat CBC in AM. #5. Obesity: Weight loss and lifestyle changes encouraged. #6. Tobacco Abuse: Encouraged cessation, inpatient consultation per RT, NR if desired. #7. GERD with history of previous GI bleed: We will continue patient on PPI. #8. Epilepsy: We will continue patient home Keppra and pregabalin regimen. #9. Restless leg syndrome: Per current list not on chronic regimen, may add if necessary. #10. Anxiety and depression: We will continue patient home mirtazapine, escitalopram, benztropine, aripiprazole, buspirone home regimen. #11. Chronic pain syndrome: We will continue patient home buprenorphine regimen. #12. Allergic rhinitis: We will continue patient home cetirizine and fluticasone regimen. #13. DVT prophylaxis: Lovenox. #14. CODE status: Patient ALEXIS is her sister and living will is currently in place. Full Code status. Charges/Coding Visit Charges Inpatient E&M: 40679 Init Hosp L3
[2023-10-03] VITALS (13 sets, daily range): BP systolic 107–156; BP diastolic 55–87; PULSE 62–96; RESP 18–26; TEMP 36.1–38.2; O2SAT 88–95; BMI 35.9
[2023-10-03] MEDS: MethylPREDNISolone 125 MG/2 ML Vial IV (00:16)
[2023-10-03] MEDS: levoFLOXacin IV 750 MG/150 ML BAG 100 MG IV ×2 (00:16→21:26)
[2023-10-03] MEDS: guaiFENesin 10 ML UDC (200MG/10ML) 20 ML PO ×2 (00:59→13:08)
[2023-10-03] MEDS: Acetaminophen 325 MG Tablet 650 MG PO ×4 (01:00→18:09)
[2023-10-03] MEDS: 0.9% Normal Saline (1000mL) 1,000 ML 100 ML IV (01:00)
[2023-10-03] MEDS: Ipratropium/Albuterol Sulfate 3 ML AMPUL.NEB INHALATION ×4 (01:35→23:12)
[2023-10-03 01:42] LABS: Procalcitonin 0.12 ng/mL (0.00-0.09)
[2023-10-03 02:34] LABS: M R Staph aureus DNA By PCR Negative (Negative); Probe Check PASS; Specimen Processing Control PASS
[2023-10-03] MEDS: Pregabalin 75 MG Capsule PO ×3 (05:19→21:23)
[2023-10-03] MEDS: busPIRone 5 MG Tablet PO ×3 (05:19→21:23)
[2023-10-03 06:46] LABS: Absolute Lymphocyte Count 0.25 X10^3/uL (0.83-4.51); Absolute Neutrophil Count 12.5 X10^3/uL (2.0-7.7); Basophil# 0.02 X10^3/uL; Basophil% 0.2 % (0-1); Hematocrit 37.6 % (37-47); Hemoglobin 11.5 g/dL (12.0-15.0); Lymphocyte # 0.25 X10^3/ul (0.83-4.51); Lymphocyte % 1.9 % (19-41); Mean Corp Hgb Conc 30.6 g/dL (32-36); Mean Corpuscular Hgb 25.8 pg (27.0-32.0); Mean Corpuscular Volume 84.3 fL (81-99); Monocyte# 0.26 X10^3/uL; NRBC Flagged by Analyzer 0 % (0-5); POSITIVE DIFFERENTIAL YES; Platelet Count 171 K/mm3 (150-450); RBC Distribution Width CV 17.1 % (11.6-14.6); Red Blood Count 4.46 M/mm3 (4.2-5.4); White Blood Count 13.2 K/mm3 (4.4-11.0)
[2023-10-03 07:12] LABS: ALB/GLOB Ratio 0.9 RATIO (0.9-2.4); AST(SGOT) 14 U/L (15-37); Alanine Aminotransfer ALT/SGPT 21 U/L (13-56); Albumin, Serum 2.5 g/dL (3.2-5.0); Alkaline Phosphatase 32 U/L (45-117); Anion Gap 5 (5-15); BUN 25 mg/dL (7-18); BUN/Creat Ratio 32.3 RATIO (10-20); Calcium,Total 8.6 mg/dL (8.5-10.1); Chloride 99 mmol/L (98-107); Creatinine, Serum 0.77 mg/dL (0.55-1.02); EST Glomerular Filtration Rate 80 mL/min (>60); Est Glom Filt Rate - Afr Amer 97 mL/min (>60); Estimated Creatinine Clearance 89.65 ml/min; Globulin 2.7 g/dL (2.2-4.2); Glucose 113 mg/dL (74-106); Potassium 4.3 mmol/L (3.5-5.1); Protein, Total 5.2 g/dL (6.4-8.2); Sodium Level 136 mmol/L (136-145)
[2023-10-03] MEDS: ARIPiprazole 2 MG Tablet PO (08:44)
[2023-10-03] MEDS: predniSONE 20 MG Tablet PO (08:44)
[2023-10-03] MEDS: Benztropine Mesylate 0.5 MG TABLET 1 MG PO ×2 (08:45→21:23)
[2023-10-03] MEDS: Oseltamivir Phosphate 75 MG Capsule PO ×2 (08:45→21:23)
[2023-10-03] MEDS: Fenofibrate 48 MG Tablet PO (08:45)
[2023-10-03] MEDS: Pantoprazole Sodium 40 MG Tablet PO (08:45)
[2023-10-03] MEDS: Furosemide 20 MG Tablet PO (08:46)
[2023-10-03] MEDS: Fluticasone 0.05% 1 SPRAY NASAL.SRY 2 SPRAY NASAL (08:46)
[2023-10-03] MEDS: levETIRAcetam 750 MG Tablet PO ×2 (08:47→21:23)
[2023-10-03] MEDS: Lisinopril 20 MG Tablet PO (08:47)
[2023-10-03] MEDS: Enoxaparin 40 MG/0.4 ML Syringe SC (08:48)
--- NOTE | 2023-10-03 09:19 | PN.HOSP_ITS ---
Subjective Subjective Doing well, no issues overnight, feeling a bit better today. Objective Data Objective Data Vital Signs: Vital Signs Temp Pulse Resp BP Pulse Ox O2 Del Method O2 Flow Rate 97.8 F 85 20 H 118/70 92 Nasal Cannula 3 10/03/23 08:40 10/03/23 08:40 10/03/23 08:40 10/03/23 08:40 10/03/23 08:40 10/03/23 08:40 10/03/23 08:40 Oxygen Flow Rate (L/min) 3 Oxygen Delivery Method Nasal Cannula Weight: 222 lb 7.143 oz Body Mass Index (BMI) 35.9 Intake & Output: Intake and Output for Last 24 Hours 10/02/23 10/03/23 10/04/23 03:59 03:59 03:59 Intake Total 150 / 150 Output Total 250 / 250 Balance 150 / 150 -250 / -250 Lab / Micro Data 10/03/23 06:32 10/03/23 06:32 Labs: Laboratory Results - last 24 hr 10/02/23 20:30: WBC 16.7 H, RBC 5.17, Hgb 13.3, Hct 43.9, MCV 84.9, MCH 25.7 L, MCHC 30.3 L, RDW Std Deviation 51.7 H, RDW Coeff of Dyana 17.2 H, Plt Count 231, MPV 10.0, Immature Gran % (Auto) 0.900, Neut % (Auto) 87.7 H, Lymph % (Auto) 7.7 L, [place] % (Auto) 3.4, Eos % (Auto) 0.1, Baso % (Auto) 0.2, Absolute Neuts (auto) 14.6 H, Absolute Lymphs (auto) 1.29, Nucleated RBC % 0, Sodium 138, Potassium 4.0, Chloride 96 L, Carbon Dioxide 38.0 H, Anion Gap 4 L, BUN 28 H, Creatinine 0.91, Estim Creat Clear Calc 76.94, Est GFR (MDRD) Af Amer 80, Est GFR (MDRD) Non-Af 66, BUN/Creatinine Ratio 30.7 H, Glucose 83, Calcium 9.6, Troponin I High Sens 22, B-Natriuretic Peptide 293.5 H 10/03/23 00:50: MRSA (PCR) Negative 10/03/23 01:11: Procalcitonin 0.12 H 10/03/23 06:32: WBC 13.2 H, RBC 4.46, Hgb 11.5 L, Hct 37.6, MCV 84.3, MCH 25.8 L , MCHC 30.6 L, RDW Std Deviation 52.0 H, RDW Coeff of Dyana 17.1 H, Plt Count 171, MPV 10.0, Immature Gran % (Auto) 0.900, Neut % (Auto) 95.0 H, Lymph % (Auto) 1.9 L, [place] % (Auto) 2.0, Eos % (Auto) 0.0, Baso % (Auto) 0.2, Absolute Neuts (auto) 12.5 H, Absolute Lymphs (auto) 0.25 L, Nucleated RBC % 0, Sodium 136, Potassium 4.3, Chloride 99, Carbon Dioxide 32.0, Anion Gap 5, BUN 25 H, Creatinine 0.77, Estim Creat Clear Calc 89.65, Est GFR (MDRD) Af Amer 97, Est GFR (MDRD) Non-Af 80, BUN/Creatinine Ratio 32.3 H, Glucose 113 H, Calcium 8.6, Total Bilirubin 0.60, AST 14 L, ALT 21, Alkaline Phosphatase 32 L, Total Protein 5.2 L, Albumin 2.5 L, Globulin 2.7, Albumin/Globulin Ratio 0.9 Micro: Microbiology 10/02/23 20:39 Mucosa - Nasopharyngeal SARS-CoV-2, Influenza & RSV (PCR) - Final Influenzae A 10/03/23 01:30 Mucosa - Nasopharyngeal Respiratory Panel (PCR) - Final Influenza A (Subtype H3) 10/03/23 05:30 Urine Catheter - Catheter Legionella Antigen - Final 10/03/23 05:30 Urine Catheter - Catheter Streptococcus pneumoniae Antigen (M - Final ABG Data ABG results: ABG 10/02/23 21:11 Specimen Type ART Sample Site L Radial pH 7.42 Bicarbonate Actual 36.5 H Total CO2 38 Base Excess 12 H O2 Saturation 94 L O2 % 5.0 ABG pCO2 56.5 H ABG pO2 74 L Fran Test Positive O2 Delivery Device Cannula Vent Mode Not entered Radiography Diagnostic Testing: Radiology Impression Chest X-Ray 10/02/23 20:33 IMPRESSION: Findings which may be consistent with left lower lobe pneumonia and possible tiny pleural effusion. Electronically Signed: Demetrius Bruno MD at 21:21 EDT Reading Location ID and State: [address] [place] [address] Tel , Service support , Rhythm Strip Rhythm Strip: Sinus Tach Rate: 115 Ectopy: None Physical Exam Narrative General: Alert, Oriented x3, Cooperative, No apparent distress HEENT: Atraumatic, PERRLA, EOMI, Normocephalic Oral: Moist Mucosa Neck: Supple, No JVD Lungs: Diminished, Normal air movement, No rhonchi, wheeze, No rales Cardiovascular: Regular rate, Regular Rhythm, Normal S1, Normal S2, No murmurs Abdomen: Soft, Non Tender, Non-Distended, No Hepato-splenomegaly Extremities: Edema, Capillary Refill Less than 3 Seconds Skin: No rashes, No breakdown Musculoskeletal: No Tenderness to Palpation of Joints or Extremities Neurological: No focal neurological deficits, Motor Exam 5/5 strength throughout, Sensory exam intact to light touch and pain Psych/Mental Status: Flat Assessment & Plan Assessment/Plan (1) Influenza and pneumonia: PLAN: Plan 1. Acute hypoxia with chronic hypoxic respiratory failure secondary to influenza A and left lower lobe pneumonia/COPD ? Continue with steroid taper from her previous admission and inhalers ? Continue with antibiotics, blood cultures are pending ? PT/OT for evaluation given her multiple admissions 2. Essential HTN/HLD ? Blood pressure stable, can resume her home blood pressure medications ? Will start her on a low-dose Lasix ? Echo on her last admission with an EF of 60% with moderate hypertrophy of the right ventricle mild to moderate global right ventricular systolic dysfunction ? Continue with her cholesterol medication ? Will monitor and make adjustments as necessary 3. Seizure disorder/nerve pain ? Stable ? Continue with her Keppra ? Continue with her Lyrica and topical buprenorphine 4. Anxiety/depression ? Stable ? Continue with her home medications 5. GERD ? Stable ? Continue with PPI DVT: Lovenox Charges/Coding Visit Charges Inpatient E&M: 49905 Subs Hosp L2
[2023-10-03] MEDS: Escitalopram Oxalate 20 MG Tablet PO (10:42)
[2023-10-03] MEDS: 0.9% Saline Lock 10 ML Syringe IV ×2 (10:43→21:26)
--- NOTE | 2023-10-03 11:10 | CASEMGMT ---
AILIN CM Readmission Note Previous Admission: 09/24-09/27/2023 Diagnosis: COPD DC Disposition: Home with self care F/U in 2 weeks with PCP Current Admission: Admitted 10/02/2023 Current Diagnosis: dyspnea, cough Pt reports weakness at home requiring EMS support. Now admitted and noted to be positive for influenza, PNA, and with increased oxygen needs. Patient was seen by PT/OT today. Pt was able to ambulate 15ft with therapy today. Pt reports that she is very weak and knows she may need rehab. Pt reports she has been at [facility] in the past and will only go there, patient declining a SNF list. Pt confirmed that her initial assessment from 09/16/2023 is still current. DC PLAN: [facility] Bianca BARRIGA, RN, CCM
--- NOTE | 2023-10-03 12:14 | CASEMGMT ---
Social Work Initial referral made to [facility]. Pt had told CM that [facility] is the only place she will go for rehab placement, so SNF list not needed at this time. SW will continue to follow, it is anticipated pt will be here through the weekend as a precert will be needed. WILIAN Bravo
[2023-10-03] MEDS: Baclofen 10 MG Tablet 20 MG PO (14:22)
[2023-10-03] MEDS: Ensure Plus High Protein 120 ML LIQUID PO (18:05)
[2023-10-03] MEDS: oxyCODONE 5 MG Tablet 7.5 MG PO (21:22)
[2023-10-03] MEDS: Mirtazapine 15 MG Tablet PO (21:23)
[2023-10-04] VITALS (16 sets, daily range): BP systolic 92–129; BP diastolic 48–67; PULSE 62–82; RESP 16–20; TEMP 36.4–36.6; O2SAT 87–99; BMI 35.8
--- NOTE | 2023-10-04 00:53 | CPS ---
Pt doesn't use bipap. Bipap not on room.
[2023-10-04] MEDS: oxyCODONE 5 MG Tablet 7.5 MG PO ×2 (03:51→18:05)
[2023-10-04] MEDS: Pregabalin 75 MG Capsule PO ×3 (05:35→21:00)
[2023-10-04] MEDS: busPIRone 5 MG Tablet PO ×3 (05:35→20:57)
[2023-10-04 06:00] LABS: White Blood Count 7.1 K/mm3 (4.4-11.0)
[2023-10-04 06:01] LABS: Absolute Lymphocyte Count 0.77 X10^3/uL (0.83-4.51); Absolute Neutrophil Count 5.6 X10^3/uL (2.0-7.7); Eosinophil# 0.07 X10^3/uL; Hematocrit 37.5 % (37-47); Hemoglobin 11.5 g/dL (12.0-15.0); Lymphocyte # 0.77 X10^3/ul (0.83-4.51); Lymphocyte % 10.9 % (19-41); Mean Corp Hgb Conc 30.7 g/dL (32-36); Mean Corpuscular Hgb 26.1 pg (27.0-32.0); Mean Corpuscular Volume 85.2 fL (81-99); Mean Platelet Vol. 10.4 fl (6.2-12.0); Monocyte# 0.53 X10^3/uL; Monocyte% 7.5 % (0-10); NRBC Flagged by Analyzer 0 % (0-5); Neutrophil # 5.62 X10^3/uL (2.7-7.7); Neutrophil % 79.3 % (47-70); Platelet Count 152 K/mm3 (150-450); RBC Distribution Width CV 16.8 % (11.6-14.6); RBC Distribution Width SD 52.7 fl (35.1-43.9)
[2023-10-04 06:22] LABS: Anion Gap 3 (5-15); BUN 30 mg/dL (7-18); BUN/Creat Ratio 38.4 RATIO (10-20); Calcium,Total 8.8 mg/dL (8.5-10.1); Chloride 97 mmol/L (98-107); Creatinine, Serum 0.78 mg/dL (0.55-1.02); EST Glomerular Filtration Rate 79 mL/min (>60); Est Glom Filt Rate - Afr Amer 96 mL/min (>60); Estimated Creatinine Clearance 88.41 ml/min; Glucose 93 mg/dL (74-106); Potassium 3.6 mmol/L (3.5-5.1); Sodium Level 137 mmol/L (136-145)
[2023-10-04] MEDS: Ipratropium/Albuterol Sulfate 3 ML AMPUL.NEB INHALATION ×5 (06:53→23:13)
[2023-10-04] MEDS: Ensure Plus High Protein 120 ML LIQUID PO ×3 (08:42→16:54)
[2023-10-04] MEDS: guaiFENesin 10 ML UDC (200MG/10ML) 20 ML PO ×2 (08:43→16:54)
[2023-10-04] MEDS: Acetaminophen 325 MG Tablet 650 MG PO ×2 (08:44→14:20)
[2023-10-04] MEDS: Oseltamivir Phosphate 75 MG Capsule PO ×2 (08:44→20:57)
[2023-10-04] MEDS: predniSONE 20 MG Tablet PO (08:44)
[2023-10-04] MEDS: ARIPiprazole 2 MG Tablet PO (08:45)
[2023-10-04] MEDS: Pantoprazole Sodium 40 MG Tablet PO (08:45)
[2023-10-04] MEDS: Fluticasone 0.05% 1 SPRAY NASAL.SRY 2 SPRAY NASAL (08:45)
[2023-10-04] MEDS: Fenofibrate 48 MG Tablet PO (08:46)
[2023-10-04] MEDS: Escitalopram Oxalate 20 MG Tablet PO (08:46)
[2023-10-04] MEDS: Benztropine Mesylate 0.5 MG TABLET 1 MG PO ×2 (08:46→20:57)
[2023-10-04] MEDS: levETIRAcetam 750 MG Tablet PO ×2 (08:46→20:57)
[2023-10-04] MEDS: Enoxaparin 40 MG/0.4 ML Syringe SC (08:48)
[2023-10-04] MEDS: Baclofen 10 MG Tablet 20 MG PO ×2 (08:53→20:56)
--- NOTE | 2023-10-04 13:05 | PN.HOSP_ITS ---
Subjective Subjective Feels better today than she did yesterday Objective Data Objective Data Vital Signs: Vital Signs Temp Pulse Resp BP Pulse Ox O2 Del Method O2 Flow Rate 97.7 F L 79 20 H 92/51 L 95 Nasal Cannula 3 10/04/23 10:56 10/04/23 11:35 10/04/23 11:35 10/04/23 10:56 10/04/23 10:56 10/04/23 10:56 10/04/23 10:56 Oxygen Flow Rate (L/min) 3 Oxygen Delivery Method Nasal Cannula Weight: 222 lb 0.088 oz Body Mass Index (BMI) 35.8 Intake & Output: Intake and Output for Last 24 Hours 10/03/23 10/04/23 10/05/23 03:59 03:59 03:59 Intake Total 150 / 150 2161.67 / 2161.67 Output Total 800 / 800 400 / 400 Balance 150 / 150 1361.67 / 1361.67 -400 / -400 Lab / Micro Data 10/04/23 05:24 10/04/23 05:24 Labs: Laboratory Results - last 24 hr 10/04/23 05:24: WBC 7.1, RBC 4.40, Hgb 11.5 L, Hct 37.5, MCV 85.2, MCH 26.1 L, MCHC 30.7 L, RDW Std Deviation 52.7 H, RDW Coeff of Dyana 16.8 H, Plt Count 152, MPV 10.4, Immature Gran % (Auto) 1.300 H, Neut % (Auto) 79.3 H, Lymph % (Auto) 10.9 L, [place] % (Auto) 7.5, Eos % (Auto) 1.0, Baso % (Auto) 0.0, Absolute Neuts (auto) 5.6, Absolute Lymphs (auto) 0.77 L, Nucleated RBC % 0, Sodium 137, Potassium 3.6, Chloride 97 L, Carbon Dioxide 37.0 H, Anion Gap 3 L, BUN 30 H, Creatinine 0.78, Estim Creat Clear Calc 88.41, Est GFR (MDRD) Af Amer 96, Est GFR (MDRD) Non-Af 79, BUN/Creatinine Ratio 38.4 H, Glucose 93, Calcium 8.8 Micro: Microbiology 10/02/23 20:39 Mucosa - Nasopharyngeal SARS-CoV-2, Influenza & RSV (PCR) - Final Influenzae A 10/03/23 01:30 Mucosa - Nasopharyngeal Respiratory Panel (PCR) - Final Influenza A (Subtype H3) 10/03/23 05:30 Urine Catheter - Catheter Legionella Antigen - Final 10/03/23 05:30 Urine Catheter - Catheter Streptococcus pneumoniae Antigen (M - Final Rhythm Strip Rhythm Strip: Sinus Tach Rate: 115 Ectopy: None Physical Exam Narrative General: Alert, Oriented x3, Cooperative, No apparent distress HEENT: Atraumatic, PERRLA, EOMI, Normocephalic Oral: Moist Mucosa Neck: Supple, No JVD Lungs: Diminished, Normal air movement, No rhonchi, slight wheeze, No rales Cardiovascular: Regular rate, Regular Rhythm, Normal S1, Normal S2, No murmurs Abdomen: Soft, Non Tender, Non-Distended, No Hepato-splenomegaly Extremities: Edema, Capillary Refill Less than 3 Seconds Skin: No rashes, No breakdown Musculoskeletal: No Tenderness to Palpation of Joints or Extremities Neurological: No focal neurological deficits, Motor Exam 5/5 strength throughout, Sensory exam intact to light touch and pain Psych/Mental Status: Normal affect Assessment & Plan Assessment/Plan (1) Influenza and pneumonia: PLAN: Plan 1. Acute hypoxia with chronic hypoxic respiratory failure secondary to influenza A and left lower lobe pneumonia/COPD ? Continue with steroid taper from her previous admission and inhalers ? Continue with antibiotics, sputum cultures are pending ? PT/OT for evaluation given her multiple admissions 2. Essential HTN/HLD ? Blood pressure stable, can resume her home blood pressure medications ? Will start her on a low-dose Lasix ? Echo on her last admission with an EF of 60% with moderate hypertrophy of the right ventricle mild to moderate global right ventricular systolic dysfunction ? Continue with her cholesterol medication ? Will monitor and make adjustments as necessary 3. Seizure disorder/nerve pain ? Stable ? Continue with her Keppra ? Continue with her Lyrica and topical buprenorphine 4. Anxiety/depression ? Stable ? Continue with her home medications 5. GERD ? Stable ? Continue with PPI DVT: Lovenox Charges/Coding Visit Charges Inpatient E&M: 05164 Subs Hosp L2
[2023-10-04] MEDS: 0.9% Saline Lock 10 ML Syringe IV (20:55)
[2023-10-04] MEDS: levoFLOXacin IV 750 MG/150 ML BAG 100 MG IV (20:55)
[2023-10-04] MEDS: Mirtazapine 15 MG Tablet PO (20:56)
--- NOTE | 2023-10-04 22:00 | NURSING ---
PATIENT REQUESTED R ARM NICOTINE PATCH TO BE REMOVED AT [facility]
[2023-10-05] VITALS (10 sets, daily range): BP systolic 92–142; BP diastolic 51–76; PULSE 57–75; RESP 16–18; TEMP 36.4–36.8; O2SAT 92–98; BMI 35.9
--- NOTE | 2023-10-05 01:24 | CPS ---
bipap not in room. pt doesn't wear, rescue only.
[2023-10-05] MEDS: busPIRone 5 MG Tablet PO ×3 (05:57→21:46)
[2023-10-05] MEDS: Pregabalin 75 MG Capsule PO ×3 (05:57→21:45)
[2023-10-05 06:03] LABS: Absolute Neutrophil Count 4.7 X10^3/uL (2.0-7.7); Basophil# 0.01 X10^3/uL; Basophil% 0.2 % (0-1); Eosinophil# 0.07 X10^3/uL; Eosinophils% 1.1 % (0-5); Hematocrit 38.1 % (37-47); Hemoglobin 11.5 g/dL (12.0-15.0); Mean Corp Hgb Conc 30.2 g/dL (32-36); Mean Corpuscular Hgb 26.1 pg (27.0-32.0); Mean Corpuscular Volume 86.6 fL (81-99); Mean Platelet Vol. 10.1 fl (6.2-12.0); NRBC Flagged by Analyzer 0 % (0-5); Neutrophil % 70.6 % (47-70); Platelet Count 154 K/mm3 (150-450); RBC Distribution Width CV 16.9 % (11.6-14.6); RBC Distribution Width SD 53.1 fl (35.1-43.9); White Blood Count 6.7 K/mm3 (4.4-11.0)
[2023-10-05] MEDS: oxyCODONE 5 MG Tablet 7.5 MG PO (06:03)
[2023-10-05 06:26] LABS: Anion Gap 3 (5-15); BUN 31 mg/dL (7-18); Chloride 100 mmol/L (98-107); Creatinine, Serum 0.82 mg/dL (0.55-1.02); EST Glomerular Filtration Rate 75 mL/min (>60); Est Glom Filt Rate - Afr Amer 91 mL/min (>60); Glucose 90 mg/dL (74-106); Potassium 3.9 mmol/L (3.5-5.1); Sodium Level 140 mmol/L (136-145)
[2023-10-05] MEDS: Ipratropium/Albuterol Sulfate 3 ML AMPUL.NEB INHALATION ×4 (07:47→18:58)
--- NOTE | 2023-10-05 09:09 | CASEMGMT ---
[facility]charge Planning Up[facility]. Laura Zapata, Discharge Planning Asst.
[2023-10-05] MEDS: Fenofibrate 48 MG Tablet PO (09:44)
[2023-10-05] MEDS: Oseltamivir Phosphate 75 MG Capsule PO ×2 (09:44→21:46)
[2023-10-05] MEDS: levETIRAcetam 750 MG Tablet PO ×2 (09:45→21:46)
[2023-10-05] MEDS: Benztropine Mesylate 0.5 MG TABLET 1 MG PO ×2 (09:45→21:46)
[2023-10-05] MEDS: Ensure Plus High Protein 120 ML LIQUID PO ×2 (09:45→17:50)
[2023-10-05] MEDS: Pantoprazole Sodium 40 MG Tablet PO (09:45)
[2023-10-05] MEDS: ARIPiprazole 2 MG Tablet PO (09:45)
[2023-10-05] MEDS: predniSONE 20 MG Tablet PO (09:45)
[2023-10-05] MEDS: Escitalopram Oxalate 20 MG Tablet PO (09:45)
[2023-10-05] MEDS: Fluticasone 0.05% 1 SPRAY NASAL.SRY 2 SPRAY NASAL (09:46)
[2023-10-05] MEDS: Enoxaparin 40 MG/0.4 ML Syringe SC (09:46)
--- NOTE | 2023-10-05 09:48 | PN.HOSP_ITS ---
Subjective Subjective Doing well, no issues overnight Objective Data Objective Data Vital Signs: Vital Signs Temp Pulse Resp BP Pulse Ox O2 Del Method O2 Flow Rate 97.5 F L 75 18 92/65 92 Nasal Cannula 3 10/05/23 09:39 10/05/23 09:39 10/05/23 09:39 10/05/23 09:39 10/05/23 09:39 10/05/23 09:39 10/05/23 09:39 Oxygen Flow Rate (L/min) 3 Oxygen Delivery Method Nasal Cannula Weight: 222 lb 14.197 oz Body Mass Index (BMI) 35.9 Intake & Output: Intake and Output for Last 24 Hours 10/04/23 10/05/23 10/06/23 03:59 03:59 03:59 Intake Total 2161.67 / 2161.67 1030 / 1030 Output Total 800 / 800 400 / 400 Balance 1361.67 / 1361.67 630 / 630 Lab / Micro Data 10/05/23 05:40 10/05/23 05:40 Labs: Laboratory Results - last 24 hr 10/05/23 05:40: WBC 6.7, RBC 4.40, Hgb 11.5 L, Hct 38.1, MCV 86.6, MCH 26.1 L, MCHC 30.2 L, RDW Std Deviation 53.1 H, RDW Coeff of Dyana 16.9 H, Plt Count 154, MPV 10.1, Immature Gran % (Auto) 1.100 H, Neut % (Auto) 70.6 H, Lymph % (Auto) 18.0 L, [place] % (Auto) 9.0, Eos % (Auto) 1.1, Baso % (Auto) 0.2, Absolute Neuts (auto) 4.7, Absolute Lymphs (auto) 1.20, Nucleated RBC % 0, Sodium 140, Potassium 3.9, Chloride 100, Carbon Dioxide 37.0 H, Anion Gap 3 L, BUN 31 H, Creatinine 0.82, Estim Creat Clear Calc 84.10, Est GFR (MDRD) Af Amer 91, Est GFR (MDRD) Non-Af 75, BUN/Creatinine Ratio 38.0 H, Glucose 90, Calcium 9.0 Micro: Microbiology 10/03/23 06:55 Sputum, Expectorated/Coughed Gram Stain - Final 10/03/23 06:55 Sputum, Expectorated/Coughed Respiratory Culture - Final Presumptive C albicans 10/02/23 20:39 Mucosa - Nasopharyngeal SARS-CoV-2, Influenza & RSV (PCR) - Final Influenzae A 10/03/23 01:30 Mucosa - Nasopharyngeal Respiratory Panel (PCR) - Final Influenza A (Subtype H3) 10/03/23 05:30 Urine Catheter - Catheter Legionella Antigen - Final 10/03/23 05:30 Urine Catheter - Catheter Streptococcus pneumoniae Antigen (M - Final Rhythm Strip Rhythm Strip: Sinus Tach Rate: 115 Ectopy: None Physical Exam Narrative General: Alert, Oriented x3, Cooperative, No apparent distress HEENT: Atraumatic, PERRLA, EOMI, Normocephalic Oral: Moist Mucosa Neck: Supple, No JVD Lungs: Diminished, Normal air movement, No rhonchi, slight wheeze, No rales Cardiovascular: Regular rate, Regular Rhythm, Normal S1, Normal S2, No murmurs Abdomen: Soft, Non Tender, Non-Distended, No Hepato-splenomegaly Extremities: Edema, Capillary Refill Less than 3 Seconds Skin: No rashes, No breakdown Musculoskeletal: No Tenderness to Palpation of Joints or Extremities Neurological: No focal neurological deficits, Motor Exam 5/5 strength throughout, Sensory exam intact to light touch and pain Psych/Mental Status: Normal affect Assessment & Plan Assessment/Plan (1) Influenza and pneumonia: PLAN: Plan 1. Acute hypoxia with chronic hypoxic respiratory failure secondary to influenza A and left lower lobe pneumonia/COPD ? Continue with steroid taper from her previous admission and inhalers ? Continue with antibiotics, sputum culture with presumptive Hansa albicans ? PT/OT for evaluation given her multiple admissions ? Continue with Tamiflu 2. Essential HTN/HLD ? Blood pressure stable, can resume her home blood pressure medications ? Will continue her on a low-dose Lasix ? Echo on her last admission with an EF of 60% with moderate hypertrophy of the right ventricle mild to moderate global right ventricular systolic dysfunction ? Continue with her cholesterol medication ? Will monitor and make adjustments as necessary 3. Seizure disorder/nerve pain ? Stable ? Continue with her Keppra ? Continue with her Lyrica and topical buprenorphine 4. Anxiety/depression ? Stable ? Continue with her home medications 5. GERD ? Stable ? Continue with PPI DVT: Lovenox Charges/Coding Visit Charges Inpatient E&M: 72986 Subs Hosp L2
[2023-10-05] MEDS: Baclofen 10 MG Tablet 20 MG PO ×2 (09:53→21:46)
[2023-10-05] MEDS: Acetaminophen 325 MG Tablet 650 MG PO ×2 (09:53→23:40)
--- NOTE | 2023-10-05 11:44 | CASEMGMT ---
[facility] accepted patient and started pre-cert. SW will notify patient. Patience Kim MSW HEATHER
[2023-10-05] MEDS: levoFLOXacin IV 750 MG/150 ML BAG 100 MG IV (21:41)
[2023-10-05] MEDS: Mirtazapine 15 MG Tablet PO (21:46)
[2023-10-06] VITALS (9 sets, daily range): BP systolic 106–133; BP diastolic 47–67; PULSE 62–86; RESP 16–20; TEMP 35.9–36.6; O2SAT 91–98; BMI 36.5
[2023-10-06] MEDS: Pregabalin 75 MG Capsule PO ×3 (05:23→22:32)
[2023-10-06] MEDS: busPIRone 5 MG Tablet PO ×3 (05:23→22:32)
[2023-10-06] MEDS: Ipratropium/Albuterol Sulfate 3 ML AMPUL.NEB INHALATION ×4 (06:52→19:06)
[2023-10-06] MEDS: Baclofen 10 MG Tablet 20 MG PO ×3 (08:36→22:31)
[2023-10-06] MEDS: Escitalopram Oxalate 20 MG Tablet PO (08:36)
[2023-10-06] MEDS: Fenofibrate 48 MG Tablet PO (08:36)
[2023-10-06] MEDS: Lisinopril 20 MG Tablet PO (08:36)
[2023-10-06] MEDS: predniSONE 10 MG Tablet PO (08:37)
[2023-10-06] MEDS: Pantoprazole Sodium 40 MG Tablet PO (08:37)
[2023-10-06] MEDS: levETIRAcetam 750 MG Tablet PO ×2 (08:37→22:32)
[2023-10-06] MEDS: Enoxaparin 40 MG/0.4 ML Syringe SC (08:37)
[2023-10-06] MEDS: Benztropine Mesylate 0.5 MG TABLET 1 MG PO ×2 (08:37→22:32)
[2023-10-06] MEDS: Furosemide 20 MG Tablet PO (08:37)
[2023-10-06] MEDS: Oseltamivir Phosphate 75 MG Capsule PO ×2 (08:37→22:32)
[2023-10-06] MEDS: ARIPiprazole 2 MG Tablet PO (08:37)
[2023-10-06] MEDS: Ensure Plus High Protein 120 ML LIQUID PO ×2 (08:39→17:02)
[2023-10-06] MEDS: Fluticasone 0.05% 1 SPRAY NASAL.SRY 2 SPRAY NASAL (08:42)
[2023-10-06] MEDS: Acetaminophen 325 MG Tablet 650 MG PO ×2 (11:45→22:31)
--- NOTE | 2023-10-06 14:45 | PCM.TXEXTCAR ---
Diet Diet Order/Speech Therapy: 10/03/23 00:31 Diet: Cardiac - Heart Healthy Food consistency:: Regular Liquid Consistency:: Regular/Thin Routine Orders/Code Status Routine Lab Work: CBC and BMP Code Status: Full Code Wound(s) right forearm: Wound Type: Skin Tear right leg: Wound Type: Skin Tear right lower leg: Wound Type: Hematoma Therapies Physical Therapy: Eval and Treat Occupational Therapy: Eval and Treat Problem/Diagnosis (1) Influenza and pneumonia: Status: Acute Code(s): J11.00 - Influenza due to unidentified influenza virus with unspecified type of pneumonia Plan 1. Acute hypoxia with chronic hypoxic respiratory failure secondary to influenza A and left lower lobe pneumonia/COPD ? Continue with steroid taper from her previous admission and inhalers ? Continue with antibiotics, sputum culture with presumptive Hansa albicans ? PT/OT for evaluation given her multiple admissions ? Continue with Tamiflu 2. Essential HTN/HLD ? Blood pressure stable, can resume her home blood pressure medications ? Will continue her on a low-dose Lasix ? Echo on her last admission with an EF of 60% with moderate hypertrophy of the right ventricle mild to moderate global right ventricular systolic dysfunction ? Continue with her cholesterol medication ? Will monitor and make adjustments as necessary 3. Seizure disorder/nerve pain ? Stable ? Continue with her Keppra ? Continue with her Lyrica and topical buprenorphine 4. Anxiety/depression ? Stable ? Continue with her home medications 5. GERD ? Stable ? Continue with PPI DVT: Lovenox Allergies/Procedures Done in Hospital Allergies clindamycin Allergy (Verified 10/02/23 09:47) Hives aspirin Adverse Reaction (Severe, Verified 10/02/23 09:47) Upset Stomach HX OF ULCERS Penicillins Adverse Reaction (Severe, Verified 10/02/23 09:47) vomiting Procedures: None Type of Care/Length of Stay Estimated LOS: Convalescent Care Less Than 30 days Type of Care Needed: Skilled Rehab Potential: Good Prognosis: Good Additional Orders/Day of Discharge Day of Discharge: 10/06/23 Dietary and Speech Recommendations Dietitian Recommendations/Changes: Continue with Cardiac - Heart Healthy diet at this time with edema. Will start Ensure Plus High Protein 120mL TID w/ medpass to help increase oral intakes. Discharge Plan Admission Admit Date/Time: 10/02/23 23:39 Attending Provider: Chalino Tello Primary Care Provider: Nick Lindsey Consulting Providers: Myriam Ferro Discharge Orders/Prescriptions Prescriptions: New furosemide 20 mg Tablet 20 mg PO DAILY Qty: 0 0RF Continued pregabalin 75 mg capsule 75 mg PO TID fluticasone propionate [Flonase Allergy Relief] 50 mcg/actuation spray,suspension 2 spray INTRANASAL DAILY PRN (Reason: allergy symptoms) Qty: 15.8 1RF Rx Instructions: administer into each nostril (DME) Blood Pressure Cuff Misc See Rx Instructions .Route Qty: 1 0RF Rx Instructions: Check blood pressure twice a day (DME) compress.stocking,knee,reg,lrg Misc See Rx Instructions .MEDSUPPLY Qty: 2 1RF Rx Instructions: wear daily for venous insufficiency 20-30 mmHg aripiprazole 2 mg tablet 2 mg PO DAILY Qty: 90 1RF Patient Comments: pt. unsure if she takes or not benztropine 1 mg tablet 1 mg PO BID Qty: 60 5RF albuterol sulfate 90 mcg/actuation HFA aerosol inhaler 2 puff inhalation Q4H PRN (Reason: shortness of breath or wheezing) Qty: 8.5 6RF Rx Instructions: administer with spacer escitalopram oxalate 20 mg tablet 20 mg PO DAILY Qty: 90 1RF lisinopril-hydrochlorothiazide 20-12.5 mg tablet 1 tab PO DAILY Qty: 90 1RF (DME) compress.stocking,knee,reg,lrg Misc See Rx Instructions .ROUTE .MEDSUPPLY Qty: 2 0RF Rx Instructions: As directed (DME) nebulizers Misc See Rx Instructions .Route Qty: 1 0RF Rx Instructions: As directed ipratropium-albuterol 0.5 mg-3 mg(2.5 mg base)/3 mL solution for nebulization 3 ml inhalation Q4H PRN (Reason: shortness of breath or wheezing) Qty: 90 1RF guaifenesin [Mucus Relief ER] 1,200 mg tablet extended release 12hr 1,200 mg PO BID Qty: 20 0RF levetiracetam 750 mg tablet 750 mg PO BID Patient Comments: TAKE 1 TABLET BY MOUTH TWICE DAILY for seizure baclofen 20 mg tablet 20 mg PO TID PRN (Reason: Spasms) buprenorphine 20 mcg/hour patch weekly 1 patch topical QWEEK (DME) walker Misc See Rx Instructions .ROUTE .MEDSUPPLY Qty: 1 0RF Rx Instructions: rollator with wheels and a seat fenofibrate nanocrystallized 48 mg tablet 48 mg PO DAILY Qty: 90 3RF (DME) Ultra-Light Rollator [facility] See Rx Instructions .Route Qty: 1 0RF Rx Instructions: As directed mirtazapine 15 mg tablet 15 mg PO QHS Qty: 90 1RF Breztri Aerosphere 160-9-4.8 mcg/actuation HFA aerosol inhaler 2 inh inhalation BID Qty: 3 3RF omeprazole 40 mg capsule,delayed release(DR/EC) 40 mg PO DAILY Qty: 90 1RF (DME) Handicap Placard See Rx Instructions .ROUTE .MEDSUPPLY Qty: 1 0RF Rx Instructions: As directed, length of time 3 years buspirone 5 mg tablet 5 mg PO TID Qty: 270 0RF Referrals / Follow Up: Nick Lindsey MD [Primary Care Provider] - Disposition Disposition (needs filled in before D/C Order can be placed): Nursing Home Facility
--- NOTE | 2023-10-06 14:54 | PCM.PN.HOSP ---
Subjective Subjective Feeling better and breathing better Objective Data Objective Data Vital Signs: Vital Signs Temp Pulse Resp BP Pulse Ox O2 Del Method O2 Flow Rate 97 F L 86 18 106/54 L 92 Nasal Cannula 3 10/06/23 11:42 10/06/23 11:42 10/06/23 11:42 10/06/23 11:42 10/06/23 11:42 10/06/23 14:43 10/06/23 14:43 Oxygen Flow Rate (L/min) 3 Oxygen Delivery Method Nasal Cannula Weight: 226 lb 6.636 oz Body Mass Index (BMI) 36.5 Intake & Output: Intake and Output for Last 24 Hours 10/05/23 10/06/23 10/07/23 03:59 03:59 03:59 Intake Total 1030 / 1030 1030 / 1030 240 / 240 Output Total 400 / 400 Balance 630 / 630 1030 / 1030 240 / 240 Lab / Micro Data 10/05/23 05:40 10/05/23 05:40 Micro: Microbiology 10/03/23 06:55 Sputum, Expectorated/Coughed Gram Stain - Final 10/03/23 06:55 Sputum, Expectorated/Coughed Respiratory Culture - Final Presumptive C albicans 10/02/23 20:39 Mucosa - Nasopharyngeal SARS-CoV-2, Influenza & RSV (PCR) - Final Influenzae A 10/03/23 01:30 Mucosa - Nasopharyngeal Respiratory Panel (PCR) - Final Influenza A (Subtype H3) 10/03/23 05:30 Urine Catheter - Catheter Legionella Antigen - Final 10/03/23 05:30 Urine Catheter - Catheter Streptococcus pneumoniae Antigen (M - Final Rhythm Strip Rhythm Strip: Sinus Tach Rate: 115 Ectopy: None Physical Exam Narrative General: Alert, Oriented x3, Cooperative, No apparent distress HEENT: Atraumatic, PERRLA, EOMI, Normocephalic Oral: Moist Mucosa Neck: Supple, No JVD Lungs: Diminished, Normal air movement, No rhonchi, no wheeze, No rales Cardiovascular: Regular rate, Regular Rhythm, Normal S1, Normal S2, No murmurs Abdomen: Soft, Non Tender, Non-Distended, No Hepato-splenomegaly Extremities: Edema, Capillary Refill Less than 3 Seconds Skin: No rashes, No breakdown Musculoskeletal: No Tenderness to Palpation of Joints or Extremities Neurological: No focal neurological deficits, Motor Exam 5/5 strength throughout, Sensory exam intact to light touch and pain Psych/Mental Status: Normal affect Assessment & Plan Assessment/Plan (1) Influenza and pneumonia: PLAN: Plan 1. Acute hypoxia with chronic hypoxic respiratory failure secondary to influenza A and left lower lobe pneumonia/COPD ? Continue with steroid taper from her previous admission and inhalers ? Continue with antibiotics, sputum culture with presumptive Hansa albicans ? PT/OT for evaluation given her multiple admissions ? Continue with Tamiflu 2. Essential HTN/HLD ? Blood pressure stable, can resume her home blood pressure medications ? Will continue her on a low-dose Lasix ? Echo on her last admission with an EF of 60% with moderate hypertrophy of the right ventricle mild to moderate global right ventricular systolic dysfunction ? Continue with her cholesterol medication ? Will monitor and make adjustments as necessary 3. Seizure disorder/nerve pain ? Stable ? Continue with her Keppra ? Continue with her Lyrica and topical buprenorphine 4. Anxiety/depression ? Stable ? Continue with her home medications 5. GERD ? Stable ? Continue with PPI DVT: Comfortnopaige Charges/Coding Visit Charges Inpatient E&M: 43627 Subs Hosp L2
--- NOTE | 2023-10-06 15:03 | CASEMGMT ---
7000 completed in [employer] system as insurance will not approve or deny patient until they have this document. Patience Kim SITE AUDITOR BUTTON DECORATING MACHINE OPERATOR
[2023-10-06] MEDS: levoFLOXacin IV 750 MG/150 ML BAG 100 MG IV (22:31)
[2023-10-06] MEDS: Mirtazapine 15 MG Tablet PO (22:32)
[2023-10-07] VITALS (8 sets, daily range): BP systolic 93–114; BP diastolic 37–80; PULSE 61–79; RESP 16; TEMP 36.4–36.6; O2SAT 94–100; BMI 36.0
[2023-10-07] MEDS: MELATONIN 3 MG TABLET PO (00:22)
[2023-10-07] MEDS: busPIRone 5 MG Tablet PO ×2 (05:08→13:17)
[2023-10-07] MEDS: Pregabalin 75 MG Capsule PO ×2 (05:08→13:17)
[2023-10-07] MEDS: Ipratropium/Albuterol Sulfate 3 ML AMPUL.NEB INHALATION ×2 (07:01→11:08)
[2023-10-07 07:25] LABS: Absolute Lymphocyte Count 2.14 X10^3/uL (0.83-4.51); Basophil# 0.01 X10^3/uL; Basophil% 0.1 % (0-1); Eosinophil# 0.09 X10^3/uL; Eosinophils% 1.3 % (0-5); Hematocrit 36.2 % (37-47); Hemoglobin 11.1 g/dL (12.0-15.0); Lymphocyte # 2.14 X10^3/ul (0.83-4.51); Lymphocyte % 30.1 % (19-41); Mean Corp Hgb Conc 30.7 g/dL (32-36); Mean Corpuscular Hgb 26.6 pg (27.0-32.0); Mean Corpuscular Volume 86.8 fL (81-99); Monocyte# 0.82 X10^3/uL; Monocyte% 11.5 % (0-10); NRBC Flagged by Analyzer 0 % (0-5); Neutrophil # 3.98 X10^3/uL (2.7-7.7); Neutrophil % 55.9 % (47-70); Platelet Count 149 K/mm3 (150-450); RBC Distribution Width CV 16.8 % (11.6-14.6); RBC Distribution Width SD 53.2 fl (35.1-43.9); Red Blood Count 4.17 M/mm3 (4.2-5.4); White Blood Count 7.1 K/mm3 (4.4-11.0)
[2023-10-07 07:47] LABS: Anion Gap 2 (5-15); BUN 28 mg/dL (7-18); Calcium,Total 8.9 mg/dL (8.5-10.1); Chloride 97 mmol/L (98-107); Creatinine, Serum 0.93 mg/dL (0.55-1.02); EST Glomerular Filtration Rate 64 mL/min (>60); Est Glom Filt Rate - Afr Amer 78 mL/min (>60); Estimated Creatinine Clearance 74.34 ml/min; Glucose 78 mg/dL (74-106); Sodium Level 137 mmol/L (136-145)
[2023-10-07] MEDS: Pantoprazole Sodium 40 MG Tablet PO (09:38)
[2023-10-07] MEDS: Oseltamivir Phosphate 75 MG Capsule PO (09:38)
[2023-10-07] MEDS: Fenofibrate 48 MG Tablet PO (09:38)
[2023-10-07] MEDS: levETIRAcetam 750 MG Tablet PO (09:38)
[2023-10-07] MEDS: Enoxaparin 40 MG/0.4 ML Syringe SC (09:38)
[2023-10-07] MEDS: Escitalopram Oxalate 20 MG Tablet PO (09:38)
[2023-10-07] MEDS: predniSONE 10 MG Tablet PO (09:38)
[2023-10-07] MEDS: Fluticasone 0.05% 1 SPRAY NASAL.SRY 2 SPRAY NASAL (09:41)
[2023-10-07 10:33] LABS: Allen Test Positive; Base Excess 12 mmol/L (-2 to +2); Bicarbonate 36.8 mmol/L (22-26); Blood Gas Specimen Type ART; Mode Not entered; O2 Delivery Device Cannula; PO2 71 mmHG (75-100); SITE L Radial; SO2 93 % (95-99); Total Carbon Dioxide 39 mmol/L; pCO2 59.6 mmHg (35-45)
--- NOTE | 2023-10-07 11:31 | CASEMGMT ---
Patient was approved for [facility]. SW notified physician. Patience Kim ORGANIC CHEMIST HEATHER
[2023-10-07] MEDS: Benztropine Mesylate 0.5 MG TABLET 1 MG PO (11:35)
[2023-10-07] MEDS: Lisinopril 20 MG Tablet PO (11:35)
[2023-10-07] MEDS: Furosemide 20 MG Tablet PO (11:35)
[2023-10-07] MEDS: ARIPiprazole 2 MG Tablet PO (11:35)
[2023-10-07] MEDS: Ensure Plus High Protein 120 ML LIQUID PO (11:35)
[2023-10-07] MEDS: Baclofen 10 MG Tablet 20 MG PO (11:36)
[2023-10-07] MEDS: Acetaminophen 325 MG Tablet 650 MG PO (11:39)
--- NOTE | 2023-10-07 11:53 | PCM.TXEXTCAR ---
Diet Diet Order/Speech Therapy: 10/03/23 00:31 Diet: Cardiac - Heart Healthy Food consistency:: Regular Liquid Consistency:: Regular/Thin Routine Orders/Code Status Routine Lab Work: CBC and BMP Code Status: Full Code Wound(s) right forearm: Wound Type: Skin Tear right leg: Wound Type: Skin Tear right lower leg: Wound Type: Hematoma Therapies Physical Therapy: Eval and Treat Occupational Therapy: Eval and Treat Problem/Diagnosis (1) Influenza and pneumonia: Status: Acute Code(s): J11.00 - Influenza due to unidentified influenza virus with unspecified type of pneumonia Plan 1. Acute hypoxia with chronic hypoxic respiratory failure secondary to influenza A and left lower lobe pneumonia/COPD ? Continue with steroid taper from her previous admission and inhalers ? Continue with antibiotics, sputum culture with presumptive Hansa albicans ? PT/OT for evaluation given her multiple admissions ? Continue with Tamiflu 2. Essential HTN/HLD ? Blood pressure stable, can resume her home blood pressure medications ? Will continue her on a low-dose Lasix ? Echo on her last admission with an EF of 60% with moderate hypertrophy of the right ventricle mild to moderate global right ventricular systolic dysfunction ? Continue with her cholesterol medication ? Will monitor and make adjustments as necessary 3. Seizure disorder/nerve pain ? Stable ? Continue with her Keppra ? Continue with her Lyrica and topical buprenorphine 4. Anxiety/depression ? Stable ? Continue with her home medications 5. GERD ? Stable ? Continue with PPI DVT: Lovenox Allergies/Procedures Done in Hospital Allergies clindamycin Allergy (Verified 10/02/23 09:47) Hives aspirin Adverse Reaction (Severe, Verified 10/02/23 09:47) Upset Stomach HX OF ULCERS Penicillins Adverse Reaction (Severe, Verified 10/02/23 09:47) vomiting Procedures: None Type of Care/Length of Stay Estimated LOS: Convalescent Care Less Than 30 days Type of Care Needed: Skilled Rehab Potential: Good Prognosis: Good Additional Orders/Day of Discharge Day of Discharge: 10/07/23 Dietary and Speech Recommendations Dietitian Recommendations/Changes: Continue with Cardiac - Heart Healthy diet at this time with edema. Will start Ensure Plus High Protein 120mL TID w/ medpass to help increase oral intakes. Discharge Plan Admission Admit Date/Time: 10/02/23 23:39 Attending Provider: Chalino Tello Primary Care Provider: Nick Lindsey Consulting Providers: Myriam Ferro Discharge Orders/Prescriptions Prescriptions: New furosemide 20 mg Tablet 20 mg PO DAILY Qty: 0 0RF levofloxacin 750 mg tablet 750 mg PO DAILY Qty: 1 0RF Continued pregabalin 75 mg capsule 75 mg PO TID fluticasone propionate [Flonase Allergy Relief] 50 mcg/actuation spray,suspension 2 spray INTRANASAL DAILY PRN (Reason: allergy symptoms) Qty: 15.8 1RF Rx Instructions: administer into each nostril (DME) Blood Pressure Cuff Misc See Rx Instructions .Route Qty: 1 0RF Rx Instructions: Check blood pressure twice a day (DME) compress.stocking,knee,reg,lrg Misc See Rx Instructions .MEDSUPPLY Qty: 2 1RF Rx Instructions: wear daily for venous insufficiency 20-30 mmHg aripiprazole 2 mg tablet 2 mg PO DAILY Qty: 90 1RF Patient Comments: pt. unsure if she takes or not benztropine 1 mg tablet 1 mg PO BID Qty: 60 5RF albuterol sulfate 90 mcg/actuation HFA aerosol inhaler 2 puff inhalation Q4H PRN (Reason: shortness of breath or wheezing) Qty: 8.5 6RF Rx Instructions: administer with spacer escitalopram oxalate 20 mg tablet 20 mg PO DAILY Qty: 90 1RF lisinopril-hydrochlorothiazide 20-12.5 mg tablet 1 tab PO DAILY Qty: 90 1RF (DME) compress.stocking,knee,reg,lrg Misc See Rx Instructions .ROUTE .MEDSUPPLY Qty: 2 0RF Rx Instructions: As directed (DME) nebulizers Misc See Rx Instructions .Route Qty: 1 0RF Rx Instructions: As directed ipratropium-albuterol 0.5 mg-3 mg(2.5 mg base)/3 mL solution for nebulization 3 ml inhalation Q4H PRN (Reason: shortness of breath or wheezing) Qty: 90 1RF guaifenesin [Mucus Relief ER] 1,200 mg tablet extended release 12hr 1,200 mg PO BID Qty: 20 0RF levetiracetam 750 mg tablet 750 mg PO BID Patient Comments: TAKE 1 TABLET BY MOUTH TWICE DAILY for seizure baclofen 20 mg tablet 20 mg PO TID PRN (Reason: Spasms) buprenorphine 20 mcg/hour patch weekly 1 patch topical QWEEK (DME) walker [facility] See Rx Instructions .ROUTE .MEDSUPPLY Qty: 1 0RF Rx Instructions: rollator with wheels and a seat fenofibrate nanocrystallized 48 mg tablet 48 mg PO DAILY Qty: 90 3RF (DME) Ultra-Light Rollator [facility] See Rx Instructions .Route Qty: 1 0RF Rx Instructions: As directed mirtazapine 15 mg tablet 15 mg PO QHS Qty: 90 1RF Breztri Aerosphere 160-9-4.8 mcg/actuation HFA aerosol inhaler 2 inh inhalation BID Qty: 3 3RF omeprazole 40 mg capsule,delayed release(DR/EC) 40 mg PO DAILY Qty: 90 1RF (DME) Handicap Placard See Rx Instructions .ROUTE .MEDSUPPLY Qty: 1 0RF Rx Instructions: As directed, length of time 3 years buspirone 5 mg tablet 5 mg PO TID Qty: 270 0RF Referrals / Follow Up: Nick Lindsey MD [Primary Care Provider] - Disposition Disposition (needs filled in before D/C Order can be placed): Detention Facility
--- NOTE | 2023-10-07 13:14 | CASEMGMT ---
Patient is ready for discharge. MYAH sent orders to [facility] via [facility]. MYAH completed a 7000 in [employer] system. MYAH called [facility] and arranged for patient to get picked up at 13:30 via wheelchair van. RN and audio visual secretary notified. Plan: d/c to [facility] under skilled level of care on a convalescent stay. [facility] will transport via wheelchair van. Patience Kim SAMPLER FIRST STUDENT RECORDS COORDINATOR
--- NOTE | 2023-10-07 13:49 | NURSING ---
Report attempted to be called to [facility] x[facility], telephone operator receptionist sent this RN back to the receiving floor and line went both times. This RN called back and told telephone operator receptionist about issue with line and gave number to have the nurse that will be receiving pt call this RN back if they wanted report.
--- NOTE | 2023-10-07 14:47 | PHA.DC.MR.R ---
Pharmacy [facility] Med Reconciliation Pharmacy Service has performed discharge medication reconciliation for this patient. The patient's discharge medication list was reviewed for discrepancies and discrepancies were resolved. Medications at Discharge Home Medications pregabalin 75 mg capsule 75 mg PO TID nerve pain 10/05/20 walker #1 ea 10/05/20 fluticasone propionate 50 mcg/actuation nasal spray,suspension (Flonase Allergy Relief) 2 spray intranasal DAILY PRN allergy symptoms #15.8 mL 09/03/21 miscellaneous medical supply (Blood Pressure Cuff) #1 ea 05/06/22 compress.stocking,knee,reg,lrg #2 ea 03/19/23 fenofibrate nanocrystallized 48 mg tablet 48 mg PO DAILY CHOLESTEROL #90 tabs 04/07/23 walker (Ultra-Light Rollator misc) #1 ea 04/09/23 mirtazapine 15 mg tablet 15 mg PO QHS #90 tabs 05/26/23 budesonide 160 mcg-glycopyr 9 mcg-formot 4.8 mcg/actuation HFA inhaler (Breztri Aerosphere) 2 inh inhalation BID breathing #3 ea 06/10/23 omeprazole 40 mg capsule,delayed release 40 mg PO DAILY GERD #90 caps 06/29/23 Handicap Placard #1 ea 07/29/23 albuterol sulfate 90 mcg/actuation aerosol inhaler 2 puff inhalation Q4H PRN shortness of breath or wheezing #8.5 grams 08/13/23 aripiprazole 2 mg tablet 2 mg PO DAILY mental health #90 tabs 08/17/23 benztropine 1 mg tablet 1 mg PO BID #60 tabs 08/17/23 buspirone 5 mg tablet 5 mg PO TID #270 tabs 09/01/23 levetiracetam 750 mg tablet 750 mg PO BID seizures 09/16/23 baclofen 20 mg tablet 20 mg PO TID PRN Spasms 09/25/23 compress.stocking,knee,reg,lrg #2 ea 10/02/23 escitalopram oxalate 20 mg tablet 20 mg PO DAILY DEPRESSION #90 tabs 10/02/23 guaifenesin 1,200 mg tablet, extended release 12 hr (Mucus Relief ER) 1,200 mg PO BID #20 tabs 10/02/23 ipratropium 0.5 mg-albuterol 3 mg (2.5 mg base)/3 mL nebulization soln 3 ml inhalation Q4H PRN shortness of breath or wheezing #90 mL 10/02/23 lisinopril 20 mg-hydrochlorothiazide 12.5 mg tablet 1 tab PO DAILY blood pressure #90 tabs 10/02/23 nebulizers #1 ea 10/02/23 buprenorphine 20 mcg/hour weekly transdermal patch 1 patch topical QWEEK Chronic pain 10/03/23 furosemide 20 mg tablet 20 mg PO DAILY #0 tabs 10/06/23 levofloxacin 750 mg tablet 750 mg PO DAILY #1 TAB 10/07/23
--- NOTE | 2023-10-07 14:58 | PCM.DC.SUM ---
Providers Date of Admission: 10/02/23 Primary Care Physician: Dr. Nick Lindsey MD Reason For Visit: HYPOXIA/ HYPERCARBIA ON CRF Diagnosis Discharge Diagnosis (1) Influenza and pneumonia: Status: Acute Code(s): J11.00 - Influenza due to unidentified influenza virus with unspecified type of pneumonia Medications at Discharge Home Medications pregabalin 75 mg capsule 75 mg PO TID nerve pain 10/05/20 walker #1 ea 10/05/20 fluticasone propionate 50 mcg/actuation nasal spray,suspension (Flonase Allergy Relief) 2 spray intranasal DAILY PRN allergy symptoms #15.8 mL 09/03/21 miscellaneous medical supply (Blood Pressure Cuff) #1 ea 05/06/22 compress.stocking,knee,reg,lrg #2 ea 03/19/23 fenofibrate nanocrystallized 48 mg tablet 48 mg PO DAILY CHOLESTEROL #90 tabs 04/07/23 walker (Ultra-Light Rollator misc) #1 ea 04/09/23 mirtazapine 15 mg tablet 15 mg PO QHS #90 tabs 05/26/23 budesonide 160 mcg-glycopyr 9 mcg-formot 4.8 mcg/actuation HFA inhaler (Breztri Aerosphere) 2 inh inhalation BID breathing #3 ea 06/10/23 omeprazole 40 mg capsule,delayed release 40 mg PO DAILY GERD #90 caps 06/29/23 Handicap Placard #1 ea 07/29/23 albuterol sulfate 90 mcg/actuation aerosol inhaler 2 puff inhalation Q4H PRN shortness of breath or wheezing #8.5 grams 08/13/23 aripiprazole 2 mg tablet 2 mg PO DAILY mental health #90 tabs 08/17/23 benztropine 1 mg tablet 1 mg PO BID #60 tabs 08/17/23 buspirone 5 mg tablet 5 mg PO TID #270 tabs 09/01/23 levetiracetam 750 mg tablet 750 mg PO BID seizures 09/16/23 baclofen 20 mg tablet 20 mg PO TID PRN Spasms 09/25/23 compress.stocking,knee,reg,lrg #2 ea 10/02/23 escitalopram oxalate 20 mg tablet 20 mg PO DAILY DEPRESSION #90 tabs 10/02/23 guaifenesin 1,200 mg tablet, extended release 12 hr (Mucus Relief ER) 1,200 mg PO BID #20 tabs 10/02/23 ipratropium 0.5 mg-albuterol 3 mg (2.5 mg base)/3 mL nebulization soln 3 ml inhalation Q4H PRN shortness of breath or wheezing #90 mL 10/02/23 lisinopril 20 mg-hydrochlorothiazide 12.5 mg tablet 1 tab PO DAILY blood pressure #90 tabs 10/02/23 nebulizers #1 ea 10/02/23 buprenorphine 20 mcg/hour weekly transdermal patch 1 patch topical QWEEK Chronic pain 10/03/23 furosemide 20 mg tablet 20 mg PO DAILY #0 tabs 10/06/23 levofloxacin 750 mg tablet 750 mg PO DAILY #1 TAB 10/07/23 Hospital Course Operations None Procedures None Summary of Care Provided Minutes Spent on Discharge: 37 Hospital Course: Per HPI: The patient is a 63 y/o F w/ PMHx: Chronic anemia, Tobacco use, Anxiety and Depression, Chronic COPD/Asthma with Chronic Hypoxic Respiratory Failure (3L NC), HTN, HLD, Allergic Rhinitis, GERD w/ Hx GI Bleed, Epilepsy, Chronic pain syndrome, RLS, recent discharge 09/27/23 following admission for COPD acute exacerbation discharged on prednisone taper who presents to the [facility] ED on 10/02/23 with history of 1 to 2 days of progressively worsening fatigue, malaise, cough with productive sputum noted to be thick and green with associated dyspnea worse with exertion with no recent increased weight gain or increased swelling above her baseline living at home with her mother requiring significant assist including called EMS twice to help her up with occasional mild headache but no recent fevers or chills nor any recent ill contacts but given ongoing symptoms prompted ED evaluation. Patient reports also recent loose stools. During recent presentation patient did have evaluation with echocardiogram 09/26/2023 with mild concentric LVH, LVEF 60%, diastolic function indeterminate, moderate hypertrophy RV, mild to moderate global RV systolic dysfunction, aortic sclerosis with no stenosis, mildly dilated aortic root. Workup in the ED included T98.4, heart rate 75, BP 186/114, respiratory rate 26, 92% on 5 L nasal cannula with earlier in the day internal medicine visit noted to be 90% oxygenation on 3 L nasal cannula at home baseline--> most recent repeat vitals BP 120/87, heart rate 91, respiratory rate 25, 86% on 3 L nasal cannula, CBC with WBC 16.7, hemoglobin 13.3, platelets 231 with left shift, ABG with pH 7.42, bicarb 36.5, O2 saturation 94%, pCO2 56.5, pO2 74, BMP with chloride 96, Comvax at 38, BUN/creatinine 28/0.91 otherwise not marked appearing, troponin 22, BNP 293.5, chest x-ray findings concerning for left lower lobe pneumonia and a possible tiny pleural effusion, rapid SARS COVID/RSV/influenza with positive influenza A, EKG SR without acute evidence of ischemia but poor given shaking In the ED patient ministered DuoNeb therapy and albuterol, solumedrol 125 mg IV x 1, levaquin 750 mg x 1 as well as Tamiflu 75 mg p.o. x 1. Hospital Course: 1. Acute hypoxia with chronic hypoxic respiratory failure secondary to influenza A and a left lower lobe pneumonia/COPD?60-year-old female presented to the hospital with increasing shortness of breath as well as weakness and debility. She was found to be positive for influenza A and completed a course of Tamiflu which was also found to have a left lower lobe pneumonia and was started on Levaquin. She has had several admissions over the last month and a half which has seen her progressively get weaker and weaker necessitating PT and OT evaluation indicating SNF placement on discharge. During this admission she did not have a COPD exacerbation so she completed her previous steroid taper from her last discharge and [facility] to [facility] Levaquin and start her physical therapy. I discussed with her the plan for discharge today she expressed understanding the risk benefits of going to the prison and would like to go today. 2. Essential hypertension/hyperlipidemia?during last admission she had echo which demonstrated an EF of 60% with moderate hypertrophy of the right ventricle and mild to moderate global right ventricular systolic dysfunction. She was started on a low-dose Lasix while here in the hospital during this admission which seems to have helped her respiratory status significantly. I do recommend continuing this medication on discharge with follow-up of her renal function as well as her bicarb. 3. Seizure disorder, nerve pain, anxiety, depression, GERD are all chronic medical conditions which complicate her care. Her home medications were continued where appropriate Physical Exam Narrative General: Alert, Oriented x3, Cooperative, No apparent distress HEENT: Atraumatic, PERRLA, EOMI, Normocephalic Oral: Moist Mucosa Neck: Supple, No JVD Lungs: Diminished, Normal air movement, No rhonchi, no wheeze, No rales Cardiovascular: Regular rate, Regular Rhythm, Normal S1, Normal S2, No murmurs Abdomen: Soft, Non Tender, Non-Distended, No Hepato-splenomegaly Extremities: Edema, Capillary Refill Less than 3 Seconds Skin: No rashes, No breakdown Musculoskeletal: No Tenderness to Palpation of Joints or Extremities Neurological: No focal neurological deficits, Motor Exam 5/5 strength throughout, Sensory exam intact to light touch and pain Psych/Mental Status: Normal affect Weight / BMI Weight Weight: 223 lb 1.725 oz Body Mass Index (BMI) 36.0 ABG / Lab / Microbiology Data 10/07/23 06:00 10/07/23 06:00 Laboratory: Laboratory Results - last 24 hr 10/07/23 06:00: WBC 7.1, RBC 4.17 L, Hgb 11.1 L, Hct 36.2 L, MCV 86.8, MCH 26.6 L, MCHC 30.7 L, RDW Std Deviation 53.2 H, RDW Coeff of Dyana 16.8 H, Plt Count 149 L, MPV 10.0, Immature Gran % (Auto) 1.100 H, Neut % (Auto) 55.9, Lymph % (Auto) 30.1, Mower % (Auto) 11.5 H, Eos % (Auto) 1.3, Baso % (Auto) 0.1, Absolute Neuts (auto) 4.0, Absolute Lymphs (auto) 2.14, Nucleated RBC % 0, Sodium 137, Potassium 4.0, Chloride 97 L, Carbon Dioxide 38.0 H, Anion Gap 2 L, BUN 28 H, Creatinine 0.93, Estim Creat Clear Calc 74.34, Est GFR (MDRD) Af Amer 78, Est GFR (MDRD) Non-Af 64, BUN/Creatinine Ratio 30.0 H, Glucose 78, Calcium 8.9 Microbiology: Microbiology 10/03/23 06:55 Sputum, Expectorated/Coughed Gram Stain - Final 10/03/23 06:55 Sputum, Expectorated/Coughed Respiratory Culture - Final Presumptive C albicans 10/02/23 20:39 Mucosa - Nasopharyngeal SARS-CoV-2, Influenza & RSV (PCR) - Final Influenzae A 10/03/23 01:30 Mucosa - Nasopharyngeal Respiratory Panel (PCR) - Final Influenza A (Subtype H3) 10/03/23 05:30 Urine Catheter - Catheter Legionella Antigen - Final 10/03/23 05:30 Urine Catheter - Catheter Streptococcus pneumoniae Antigen (M - Final ABG: ABG 10/07/23 10:29 Specimen Type ART Sample Site L Radial pH 7.40 Bicarbonate Actual 36.8 H Total CO2 39 Base Excess 12 H O2 Saturation 93 L O2 % 3.0 ABG pCO2 59.6 H ABG pO2 71 L Fran Test Positive O2 Delivery Device Cannula Vent Mode Not entered Meaningful Use Info Meaningful Use Diagnoses (Choose all that apply): None applicable Discharge Plan Admission Admit Date/Time: 10/02/23 23:39 Attending Provider: Chalino Tello Primary Care Provider: Nick Lindsey Consulting Providers: Myriam Ferro Discharge Orders/Prescriptions Prescriptions: New furosemide 20 mg Tablet 20 mg PO DAILY Qty: 0 0RF levofloxacin 750 mg tablet 750 mg PO DAILY Qty: 1 0RF Continued pregabalin 75 mg capsule 75 mg PO TID fluticasone propionate [Flonase Allergy Relief] 50 mcg/actuation spray,suspension 2 spray INTRANASAL DAILY PRN (Reason: allergy symptoms) Qty: 15.8 1RF Rx Instructions: administer into each nostril (DME) Blood Pressure Cuff Misc See Rx Instructions .Route Qty: 1 0RF Rx Instructions: Check blood pressure twice a day (DME) compress.stocking,knee,reg,lrg Misc See Rx Instructions .MEDSUPPLY Qty: 2 1RF Rx Instructions: wear daily for venous insufficiency 20-30 mmHg aripiprazole 2 mg tablet 2 mg PO DAILY Qty: 90 1RF Patient Comments: pt. unsure if she takes or not benztropine 1 mg tablet 1 mg PO BID Qty: 60 5RF albuterol sulfate 90 mcg/actuation HFA aerosol inhaler 2 puff inhalation Q4H PRN (Reason: shortness of breath or wheezing) Qty: 8.5 6RF Rx Instructions: administer with spacer escitalopram oxalate 20 mg tablet 20 mg PO DAILY Qty: 90 1RF lisinopril-hydrochlorothiazide 20-12.5 mg tablet 1 tab PO DAILY Qty: 90 1RF (DME) compress.stocking,knee,reg,lrg Misc See Rx Instructions .ROUTE .MEDSUPPLY Qty: 2 0RF Rx Instructions: As directed (DME) nebulizers [facility] [place] See Rx Instructions .Route Qty: 1 0RF Rx Instructions: As directed ipratropium-albuterol 0.5 mg-3 mg(2.5 mg base)/3 mL solution for nebulization 3 ml inhalation Q4H PRN (Reason: shortness of breath or wheezing) Qty: 90 1RF guaifenesin [Mucus Relief ER] 1,200 mg tablet extended release 12hr 1,200 mg PO BID Qty: 20 0RF levetiracetam 750 mg tablet 750 mg PO BID Patient Comments: TAKE 1 TABLET BY MOUTH TWICE DAILY for seizure baclofen 20 mg tablet 20 mg PO TID PRN (Reason: Spasms) buprenorphine 20 mcg/hour patch weekly 1 patch topical QWEEK (DME) walker Mis See Rx Instructions .ROUTE .MEDSUPPLY Qty: 1 0RF Rx Instructions: rollator with wheels and a seat fenofibrate nanocrystallized 48 mg tablet 48 mg PO DAILY Qty: 90 3RF (DME) Ultra-Light Rollator [facility] [place] See Rx Instructions .Route Qty: 1 0RF Rx Instructions: As directed mirtazapine 15 mg tablet 15 mg PO QHS Qty: 90 1RF Breztri Aerosphere 160-9-4.8 mcg/actuation HFA aerosol inhaler 2 inh inhalation BID Qty: 3 3RF omeprazole 40 mg capsule,delayed release(DR/EC) 40 mg PO DAILY Qty: 90 1RF (DME) Handicap Placard See Rx Instructions .ROUTE .MEDSUPPLY Qty: 1 0RF Rx Instructions: As directed, length of time 3 years buspirone 5 mg tablet 5 mg PO TID Qty: 270 0RF Referrals / Follow Up: Nick Lindsey MD [Primary Care Provider] - Disposition Disposition (needs filled in before D/C Order can be placed): Nursing Home Facility Charges/Coding Visit Charges Inpatient E&M: 50876 Disch Hosp >30min
== END 2023-10-07 13:41 | disposition skilled nursing facility (03) | DRG 139 ==
LOC: ED 20:42 → PCU 23:53
PROVIDERS: Admitting Provider Family Medicine; Emergency Provider Emergency Medicine; PCP Internal Medicine; Referring Provider Family Medicine; Visit Provider Family Medicine
DX: J10.08 Influenza due to other identified influenza virus with other specified pneumonia (principal); J44.0 Chronic obstructive pulmonary disease with (acute) lower respiratory infection; J96.11 Chronic respiratory failure with hypoxia; Z99.81 Dependence on supplemental oxygen; G40.909 Epilepsy, unspecified, not intractable, without status epilepticus; J44.1 Chronic obstructive pulmonary disease with (acute) exacerbation; I10 Essential (primary) hypertension; G25.81 Restless legs syndrome; F32.A Depression, unspecified; J12.9 Viral pneumonia, unspecified; E78.00 Pure hypercholesterolemia, unspecified; J30.9 Allergic rhinitis, unspecified; K21.9 Gastro-esophageal reflux disease without esophagitis; F41.9 Anxiety disorder, unspecified; R19.7 Diarrhea, unspecified; F17.210 Nicotine dependence, cigarettes, uncomplicated; R53.81 Other malaise; G89.4 Chronic pain syndrome; Z79.899 Other long term (current) drug therapy
CPT/HCPCS: 36415; 36600; 71045; 80048; 80053; 82803; 83880; 84145; 84484; 85025; 87070; 87205; 87449; 87631; 87633; 87641; 93005; 94640; 94668; 97110; 97162; 97166; 97530; 97535; 97802; 99285; 99406; J7030; J7050; A4216

== ENCOUNTER → 2023-10-22 | Outpatient (CLI) | payer MEDICAID, SELFPAY ==
[2023-10-22 15:27] LABS: Absolute Lymphocyte Count 1.88 X10^3/uL (0.83-4.51); Basophil# 0.02 X10^3/uL; Basophil% 0.3 % (0-1); Eosinophil# 0.13 X10^3/uL; Eosinophils% 1.9 % (0-5); Hematocrit 32.9 % (37-47); Hemoglobin 9.9 g/dL (12.0-15.0); Lymphocyte # 1.88 X10^3/ul (0.83-4.51); Lymphocyte % 28.1 % (19-41); Mean Corp Hgb Conc 30.1 g/dL (32-36); Mean Corpuscular Hgb 26.2 pg (27.0-32.0); Mean Platelet Vol. 10.3 fl (6.2-12.0); NRBC Flagged by Analyzer 0 % (0-5); Neutrophil # 4.01 X10^3/uL (2.7-7.7); Neutrophil % 59.8 % (47-70); Platelet Count 335 K/mm3 (150-450); RBC Distribution Width CV 16.4 % (11.6-14.6); RBC Distribution Width SD 52.4 fl (35.1-43.9); Red Blood Count 3.78 M/mm3 (4.2-5.4); White Blood Count 6.7 K/mm3 (4.4-11.0)
[2023-10-22 16:14] LABS: ALB/GLOB Ratio 0.8 RATIO (0.9-2.4); AST(SGOT) 18 U/L (15-37); Alanine Aminotransfer ALT/SGPT 22 U/L (13-56); Albumin, Serum 2.6 g/dL (3.2-5.0); Alkaline Phosphatase 42 U/L (45-117); Anion Gap 3 (5-15); BUN 18 mg/dL (7-18); BUN/Creat Ratio 16.8 RATIO (10-20); Calcium,Total 9.3 mg/dL (8.5-10.1); Chloride 101 mmol/L (98-107); Creatinine, Serum 1.07 mg/dL (0.55-1.02); EST Glomerular Filtration Rate 55 mL/min (>60); Est Glom Filt Rate - Afr Amer 67 mL/min (>60); Globulin 3.4 g/dL (2.2-4.2); Glucose 107 mg/dL (74-106); Potassium 3.8 mmol/L (3.5-5.1); Sodium Level 138 mmol/L (136-145)
[2023-10-22 17:28] LABS: Thyroid Stim Hormone (TSH) 0.94 uIU/mL (0.358-3.74)
[2023-10-26 06:07] LABS: KEPPRA (LEVETIRACETAM) 54.2 ug/mL (10.0-40.0)
== END | disposition home or self-care (01) ==
LOC: BIMLAB 14:01
PROVIDERS: Nurse Practitioner; PCP Internal Medicine; Visit Provider Psychiatry & Neurology Neurology
DX: S81.801A Unspecified open wound, right lower leg, initial encounter (principal); G40.909 Epilepsy, unspecified, not intractable, without status epilepticus; I10 Essential (primary) hypertension; R25.1 Tremor, unspecified; X58.XXXA Exposure to other specified factors, initial encounter
CPT/HCPCS: 36415; 80053; 80177; 82140; 84443; 85025; 87070; 87205

== ENCOUNTER 2023-10-25 09:48 | Observation (INO) | payer MEDICAID, SELFPAY ==
[2023-10-25] VITALS (11 sets, daily range): BP systolic 128–187; BP diastolic 76–116; PULSE 80–88; RESP 17–30; TEMP 36.4–36.9; O2SAT 94–98; BMI 37.6
--- NOTE | 2023-10-25 10:19 | ED.RN ---
PT ARRIVES TO THE ED WITH REPORTS OF BEING INCONTINENT OF BOWEL AND BLADDER. PT REPORTS THAT SHE IS NO LONGER ABLE TO CARE FOR HERSELF, SHE REPORTS THAT SHE HAS A FRIEND WHO HELPS HER, BUT HAS LIMITED RESOURCES. PT REPORTS SHE WAS RECENTLY DISCHARGED FROM THE [facility]ENUE AFTER HER LAST ADMISSION TO [facility]. PT CLEANED WITH BATH WIPES AND CLOTHES CHANGED. PT HAS A 3X5 REDDENED AND SORE AREA TO COCCYX STAGE 1. COCCYX WOUND DRESSING APPLIED BY THIS RN. PT PLACED INTO GOWN, ON HOSPITALITY DIRECTOR AND MOVED UP IN THE BED. PUREWICK PLACED.
--- NOTE | 2023-10-25 10:30 | RAD_ITS ---
EXAM: XR CHEST, 1 VIEW CLINICAL INDICATION: weakness TECHNIQUE: Frontal view of the chest. COMPARISON: XR Chest dated 10/02/2023 FINDINGS: LUNGS AND PLEURAL SPACES: Improving airspace opacification of the left lower lobe. No pleural effusion. HEART: Normal heart size. MEDIASTINUM: No mediastinal or hilar mass. BONES/JOINTS: No acute abnormality. RAD/Chest 1 View (Portable) IMPRESSION: Resolving left lower lobe pneumonia and pleural effusion. Electronically Signed: Pablo Cagle MD at 11:18 EDT ,
--- NOTE | 2023-10-25 10:30 | EKG12_ITS ---
Test Reason : Blood Pressure : / mmHG Vent. Rate : 082 BPM Atrial Rate : 082 BPM P-R Int : 188 ms QRS Dur : 090 ms QT Int : 404 ms P-R-T Axes : 029 013 047 degrees QTc Int : 472 ms Sinus rhythm with Premature supraventricular complexes Low voltage QRS Borderline ECG Confirmed by EVITA DUBOIS, ANTHONY ([id number]), dictionary editor WILLIAM ORTA ([id number]) on 10/26/2023 11:12:13 AM Referred By: Confirmed By:ANTHONY JAMA MD
--- NOTE | 2023-10-25 10:30 | EX.ED.DYSGE1 ---
HPI History of Present Illness Chief Complaint: Weakness Narrative Narrative: 63-year-old female presenting with weakness. Patient states that she was just hospitalized and states that she did not ambulate while she was in the hospital. [facility] she was supposed to try to get stronger and ultimately ended up going home where she is unable to care for herself. She states she can walk a little bit but she can do her ADLs such as going to the restroom, brushing her teeth, cooking food for herself. She states has not been able to feed herself or drink fluids last couple days because she is having trouble take care of self. She does not had any falls but states she injured her right tibia and has a quarter size wound here. Without bleeding. She has been keeping it dressed. Patient also states that her tailbone hurts because patient is sitting around a lot and she developed an area of redness here. Patient denies fever, chills. She denies nausea, vomiting. She denies chest pain or shortness of breath. Patient states he is has not been able to take her pain meds for couple days complains of back pain and leg pain. [facility] Medical History Anxiety and depression Arthritis Asthma Chronic acquired lymphedema Chronic pain COPD (chronic obstructive pulmonary disease) Depression Epilepsy Gastric reflux High cholesterol History of GI bleed Hyperlipidemia Hypertension Neuropathy Obesity On home oxygen therapy Pharyngitis Restless legs Seasonal allergies Seizures Smoker Stasis dermatitis Tobacco abuse Venous insufficiency of both lower extremities Vitamin D deficiency Walker as ambulation aid Wears dentures Wears glasses Home Medications walker #1 ea 10/05/20 [Rx Last Taken 02/24/21] fluticasone propionate 50 mcg/actuation nasal spray,suspension (Flonase Allergy Relief) 2 spray intranasal DAILY PRN allergy symptoms #15.8 mL 09/03/21 [Rx Last Taken Unknown] miscellaneous medical supply (Blood Pressure Cuff) #1 ea 05/06/22 [Rx Last Taken Unknown] compress.stocking,knee,reg,lrg #2 ea 03/19/23 [Rx Last Taken Unknown] fenofibrate nanocrystallized 48 mg tablet 48 mg PO DAILY CHOLESTEROL #90 tabs 04/07/23 [Rx Last Taken Unknown] walker (Ultra-Light Rollator misc) #1 ea 04/09/23 [Rx Last Taken Unknown] budesonide 160 mcg-glycopyr 9 mcg-formot 4.8 mcg/actuation HFA inhaler (Breztri Aerosphere) 2 inh inhalation BID breathing #3 ea 06/10/23 [Rx Last Taken Unknown] omeprazole 40 mg capsule,delayed release 40 mg PO DAILY GERD #90 caps 06/29/23 [Rx Last Taken Unknown] Handicap Placard #1 ea 07/29/23 [Rx Last Taken Unknown] albuterol sulfate 90 mcg/actuation aerosol inhaler 2 puff inhalation Q4H PRN shortness of breath or wheezing #8.5 grams 08/13/23 [Rx Last Taken 09/25/23] aripiprazole 2 mg tablet 2 mg PO DAILY mental health #90 tabs 08/17/23 [Rx Last Taken Unknown] benztropine 1 mg tablet 1 mg PO BID #60 tabs 08/17/23 [Rx Last Taken Unknown] buspirone 5 mg tablet 5 mg PO TID #270 tabs 09/01/23 [Rx Last Taken Unknown] levetiracetam 750 mg tablet 750 mg PO BID seizures 09/16/23 [History Last Taken Unknown] baclofen 20 mg tablet 20 mg PO TID PRN Spasms 09/25/23 [History Last Taken Unknown] compress.stocking,knee,reg,lrg #2 ea 10/02/23 [Rx Last Taken Unknown] escitalopram oxalate 20 mg tablet 20 mg PO DAILY DEPRESSION #90 tabs 10/02/23 [Rx Last Taken Unknown] guaifenesin 1,200 mg tablet, extended release 12 hr (Mucus Relief ER) 1,200 mg PO BID #20 tabs 10/02/23 [Rx Last Taken Unknown] ipratropium 0.5 mg-albuterol 3 mg (2.5 mg base)/3 mL nebulization soln 3 ml inhalation Q4H PRN shortness of breath or wheezing #90 mL 10/02/23 [Rx Last Taken Unknown] lisinopril 20 mg-hydrochlorothiazide 12.5 mg tablet 1 tab PO DAILY blood pressure #90 tabs 10/02/23 [Rx Last Taken Unknown] nebulizers #1 ea 10/02/23 [Rx Last Taken Unknown] furosemide 20 mg tablet 20 mg PO DAILY #0 tabs 10/06/23 [Rx Last Taken Unknown] buprenorphine 20 mcg/hour weekly transdermal patch 1 patch topical QWEEK Chronic pain #1 ea 10/07/23 [Rx Last Taken Unknown] pregabalin 75 mg capsule 75 mg PO TID nerve pain 3 days #9 caps 10/07/23 [Rx Last Taken Unknown] mirtazapine 15 mg tablet 15 mg PO QHS #90 TABLETS 10/13/23 [Rx Last Taken Unknown] calcium alginate-honey 2 X 2 bandage (MediHoney (calcium alginate-honey)) #10 ea 10/22/23 [Rx Last Taken Unknown] nebulizers (BrightBytesa Nebulizer System) #1 ea 10/22/23 [Rx Last Taken Unknown] sulfamethoxazole 800 mg-trimethoprim 160 mg tablet 1 tab PO Q12H #14 tabs 10/22/23 [Rx Last Taken Unknown] Allergy/AdvReac Type Severity Reaction Status Date / Time clindamycin Allergy Hives Verified 10/25/23 09:49 aspirin AdvReac Severe Upset Verified 10/25/23 09:49 Stomach Penicillins AdvReac Severe vomiting Verified 10/25/23 09:49 Family History Mother Breast cancer Hypertension Hyperlipemia Cancer melanoma, lyphoma ulcers Father Diabetes Myocardial infarction, Onset Age: 67 Hypertension Depression Sister Depression Hyperlipemia Surgical History H/O: hysterectomy History of ankle surgery History of back surgery History of tonsillectomy Hx of colonoscopy Hx of right knee surgery Social History household members: friend(s) Smoking Status: Current every day smoker tobacco type: cigarettes Tobacco: How many years used: 25 second hand exposure: No alcohol intake: never substance use type: does not use what type of physical activity do you participate in: walking frequency: 3-4 times per week dari/jehovah's witness: [employer] seatbelt use: sometimes ROS ROS ED Constitutional Constitutional ED: Denies chills, fever(s) or sweats Eyes Eyes: Denies blurry vision or change in vision ENT ENT ED: Denies ear pain or sore throat Cardiovascular Cardiovascular: Denies chest pain, palpitations or racing heartbeat Respiratory/Chest Respiratory/Chest: Denies cough, dyspnea or sputum Gastrointestinal Gastrointestinal: Denies abdominal pain, constipation, diarrhea, nausea or vomiting Genitourinary Genitourinary ED: Denies dysuria, hematuria or urinary frequency Musculoskeletal Musculoskeletal: Denies arthralgias, myalgias or neck pain Integumentary Reports other Details: Wound on right lower extremity. Sacral erythema. ; Denies abscess, Abrasions or rash Neurologic Neurologic: Denies headache(s), paresthesias or weakness Psychiatric Psychiatric: Denies anxiety, depression, suicidal ideation or suicidal thoughts Endocrine Endocrinology: Denies polydipsia or polyuria EXAM Physical Exam Const Vital Signs: 10/25/23 09:49 10/25/23 09:52 Temperature 98.2 F 98.2 F Temperature Source Temporal Oral Pulse Rate 88 88 Respiratory Rate 24 H 24 H Blood Pressure 160/110 H 160/110 H Blood Pressure Mean 126 126 Pulse Ox 97 97 Oxygen Delivery Method Nasal Cannula Nasal Cannula Oxygen Flow Rate (L/min) 3 3 Positive well nourished General Appearance ED: NAD; Negative for pallor HEENT Reports moist mucous membranes Eyes PERRL and EOMs intact bilaterally General Eye ED: Yes pale conjunctiva Chest Wall inspection of chest normal Resp Auscultation: rales bilateral base Cardio regular rate and regular rhythm GI normal to inspection, nondistended, normoactive bowel sounds Extremity Extremity Narrative: Quarter size area of skin ulceration on the right leg fpc on the lateral aspect of the right fibular region. Mild erythema. No cellulitic change. No drainage. There is also small area of erythema located on the same from just right of midline which would most likely represent stage I decubitus ulcer. Neuro oriented x3 and CN's II-XII intact bilaterally Sensorium / Orientation: alert Psych mental status grossly normal Skin General Skin Exam: Negative for jaundice or pallor MDM MDM MDM Narrative Medical decision making narrative: Patient presented generalized weakness. Differential includes dehydration, anemia, electrolyte normalities, debility, pneumonia, COVID, RSV, influenza, UTI. CBC will be obtained to assess white blood cell count, hemoglobin, platelets. BMP to assess renal function electrolytes, glucose. Urinalysis to assess for UTI. COVID, influenza, RSV swab to assess for viral sources. Chest x-ray to rule out pneumonia. EKG was obtained to assess for dysrhythmia/ischemia. BNP to assess for CHF. Patient medicated with home meds. Discharge Plan Triage Chief Complaint: Weakness ED Provider: Parish Govea Dx/Rx/DC Orders Prescriptions: No Action fluticasone propionate [Flonase Allergy Relief] 50 mcg/actuation spray,suspension 2 spray INTRANASAL DAILY PRN (Reason: allergy symptoms) Qty: 15.8 1RF Rx Instructions: administer into each nostril (DME) Blood Pressure Cuff Misc See Rx Instructions .Route Qty: 1 0RF Rx Instructions: Check blood pressure twice a day (DME) compress.stocking,knee,reg,lrg Misc See Rx Instructions .MEDSUPPLY Qty: 2 1RF Rx Instructions: wear daily for venous insufficiency 20-30 mmHg aripiprazole 2 mg tablet 2 mg PO DAILY Qty: 90 1RF Patient Comments: pt. unsure if she takes or not benztropine 1 mg tablet 1 mg PO BID Qty: 60 5RF albuterol sulfate 90 mcg/actuation HFA aerosol inhaler 2 puff inhalation Q4H PRN (Reason: shortness of breath or wheezing) Qty: 8.5 6RF Rx Instructions: administer with spacer escitalopram oxalate 20 mg tablet 20 mg PO DAILY Qty: 90 1RF lisinopril-hydrochlorothiazide 20-12.5 mg tablet 1 tab PO DAILY Qty: 90 1RF (DME) compress.stocking,knee,reg,lrg Misc See Rx Instructions .ROUTE .MEDSUPPLY Qty: 2 0RF Rx Instructions: As directed (DME) nebulizers Misc See Rx Instructions .Route Qty: 1 0RF Rx Instructions: As directed ipratropium-albuterol 0.5 mg-3 mg(2.5 mg base)/3 mL solution for nebulization 3 ml inhalation Q4H PRN (Reason: shortness of breath or wheezing) Qty: 90 1RF guaifenesin [Mucus Relief ER] 1,200 mg tablet extended release 12hr 1,200 mg PO BID Qty: 20 0RF (DME) nebulizers [Altera Nebulizer System] Misc See Rx Instructions .Route Qty: 1 0RF Rx Instructions: As directed (DME) MediHoney (hetal alginate-honey) 2 X 2 bandage See Rx Instructions .Route Qty: 10 1RF Rx Instructions: As directed sulfamethoxazole-trimethoprim 800-160 mg tablet 1 tab PO Q12H Qty: 14 0RF levetiracetam 750 mg tablet 750 mg PO BID Patient Comments: TAKE 1 TABLET BY MOUTH TWICE DAILY for seizure baclofen 20 mg tablet 20 mg PO TID PRN (Reason: Spasms) furosemide 20 mg Tablet 20 mg PO DAILY Qty: 0 0RF pregabalin 75 mg capsule 75 mg PO TID 3 Days Qty: 9 0RF buprenorphine 20 mcg/hour patch weekly 1 patch topical QWEEK Qty: 1 0RF (DME) walker [facility] See Rx Instructions .ROUTE .MEDSUPPLY Qty: 1 0RF Rx Instructions: rollator with wheels and a seat fenofibrate nanocrystallized 48 mg tablet 48 mg PO DAILY Qty: 90 3RF (DME) Ultra-Light Rollator [facility] See Rx Instructions .Route Qty: 1 0RF Rx Instructions: As directed Breztri Aerosphere 160-9-4.8 mcg/actuation HFA aerosol inhaler 2 inh inhalation BID Qty: 3 3RF omeprazole 40 mg capsule,delayed release(DR/EC) 40 mg PO DAILY Qty: 90 1RF (DME) Handicap Placard See Rx Instructions .ROUTE .MEDSUPPLY Qty: 1 0RF Rx Instructions: As directed, length of time 3 years buspirone 5 mg tablet 5 mg PO TID Qty: 270 0RF mirtazapine 15 mg tablet 15 mg PO QHS Qty: 90 1RF Primary Care Provider: Nick Lindsey Referrals: Nick Lindsey MD [Primary Care Provider] -
[2023-10-25 10:48] LABS: Absolute Lymphocyte Count 1.31 X10^3/uL (0.83-4.51); Absolute Neutrophil Count 4.3 X10^3/uL (2.0-7.7); Basophil# 0.04 X10^3/uL; Basophil% 0.6 % (0-1); Eosinophil# 0.04 X10^3/uL; Eosinophils% 0.6 % (0-5); Hematocrit 35.9 % (37-47); Lymphocyte # 1.31 X10^3/ul (0.83-4.51); Lymphocyte % 20.4 % (19-41); Mean Corp Hgb Conc 30.6 g/dL (32-36); Mean Corpuscular Hgb 26.1 pg (27.0-32.0); Mean Corpuscular Volume 85.1 fL (81-99); Mean Platelet Vol. 10.7 fl (6.2-12.0); Monocyte# 0.67 X10^3/uL; Monocyte% 10.4 % (0-10); NRBC Flagged by Analyzer 0 % (0-5); Neutrophil # 4.31 X10^3/uL (2.7-7.7); Neutrophil % 67.1 % (47-70); POSITIVE COUNT YES; Platelet Count 277 K/mm3 (150-450); RBC Distribution Width CV 16.6 % (11.6-14.6); RBC Distribution Width SD 50.9 fl (35.1-43.9); Red Blood Count 4.22 M/mm3 (4.2-5.4); White Blood Count 6.4 K/mm3 (4.4-11.0)
[2023-10-25] MEDS: Ipratropium/Albuterol Sulfate 3 ML AMPUL.NEB INHALATION ×3 (11:00→19:11)
[2023-10-25 11:05] LABS: ALB/GLOB Ratio 0.7 RATIO (0.9-2.4); AST(SGOT) 28 U/L (15-37); Alanine Aminotransfer ALT/SGPT 21 U/L (13-56); Albumin, Serum 2.8 g/dL (3.2-5.0); Alkaline Phosphatase 48 U/L (45-117); Anion Gap 7 (5-15); BUN 13 mg/dL (7-18); BUN/Creat Ratio 17.3 RATIO (10-20); Calcium,Total 9.3 mg/dL (8.5-10.1); Chloride 102 mmol/L (98-107); Creatinine, Serum 0.75 mg/dL (0.55-1.02); EST Glomerular Filtration Rate 83 mL/min (>60); Est Glom Filt Rate - Afr Amer 100 mL/min (>60); Estimated Creatinine Clearance 94.42 ml/min; Globulin 3.8 g/dL (2.2-4.2); Glucose 90 mg/dL (74-106); Potassium 3.3 mmol/L (3.5-5.1); Protein, Total 6.6 g/dL (6.4-8.2); Sodium Level 141 mmol/L (136-145); Troponin-I HS 11 pg/mL (3.0-54.0)
[2023-10-25] MEDS: Pregabalin 75 MG Capsule PO ×3 (11:07→22:22)
[2023-10-25] MEDS: Buprenorphine 10 MCG PATCH.TDWK 2 PATCH TD (11:07)
[2023-10-25 11:20] LABS: BNP,B-Type NATRIURETIC PEPTIDE 415.6 pg/mL (0-100)
[2023-10-25] MEDS: Potassium Chloride Oral Soln 20 MEQ/15 ML UDC 40 MEQ PO (12:00)
--- NOTE | 2023-10-25 13:33 | PCM.HP.STD ---
HPI - General General Date of Admission: 10/25/23 Date of Service: 10/25/23 Chief Complaint: Generalized weakness HPI Narrative CASI APARICIO, is a 63 F who presents to the emergency room at [facility] with complaints of generalized weakness, she was released from a [facility] recently after going there for rehab services following a hospitalization here at [facility]. Patient's medical problems include chronic hypoxic respiratory failure, chronic obstructive pulmonary disease, degenerative disc disease of the lumbar spine, seizure disorder and chronic depression. Patient states she was at the [facility] for rehab services, her rehab days were used up and she could have stayed there 3 more days without physical therapy but chose to come home instead. Patient stated she thought she had home health but did not. Workup in the emergency room included labs which showed a normal white blood cell count, hemoglobin was 11, potassium was slightly low at 3.3, patient's beta natruretic peptide was elevated at 415, chest x-ray showed resolving left lower lobe pneumonia and pleural effusion. Patient will be placed in observation status on [facility] 3, she will be seen by PT and OT, she will need to go to an extended care facility for ongoing care. [facility] Medical History Anxiety and depression Arthritis Asthma Chronic acquired lymphedema Chronic pain COPD (chronic obstructive pulmonary disease) Depression Epilepsy Gastric reflux High cholesterol History of GI bleed Hyperlipidemia Hypertension Neuropathy Obesity On home oxygen therapy Pharyngitis Restless legs Seasonal allergies Seizures Smoker Stasis dermatitis Tobacco abuse Venous insufficiency of both lower extremities Vitamin D deficiency Walker as ambulation aid Wears dentures Wears glasses Home Medications walker #1 ea 10/05/20 [Rx Last Taken 02/24/21] fluticasone propionate 50 mcg/actuation nasal spray,suspension (Flonase Allergy Relief) 2 spray intranasal DAILY PRN allergy symptoms #15.8 mL 09/03/21 [Rx Last Taken Unknown] miscellaneous medical supply (Blood Pressure Cuff) #1 ea 05/06/22 [Rx Last Taken Unknown] compress.stocking,knee,reg,lrg #2 ea 03/19/23 [Rx Last Taken Unknown] fenofibrate nanocrystallized 48 mg tablet 48 mg PO DAILY CHOLESTEROL #90 tabs 04/07/23 [Rx Last Taken Unknown] walker (Ultra-Light Rollator misc) #1 ea 04/09/23 [Rx Last Taken Unknown] budesonide 160 mcg-glycopyr 9 mcg-formot 4.8 mcg/actuation HFA inhaler (Breztri Aerosphere) 2 inh inhalation BID breathing #3 ea 06/10/23 [Rx Last Taken Unknown] omeprazole 40 mg capsule,delayed release 40 mg PO DAILY GERD #90 caps 06/29/23 [Rx Last Taken Unknown] Handicap Placard #1 ea 07/29/23 [Rx Last Taken Unknown] albuterol sulfate 90 mcg/actuation aerosol inhaler 2 puff inhalation Q4H PRN shortness of breath or wheezing #8.5 grams 08/13/23 [Rx Last Taken 09/25/23] aripiprazole 2 mg tablet 2 mg PO DAILY mental health #90 tabs 08/17/23 [Rx Last Taken Unknown] benztropine 1 mg tablet 1 mg PO BID #60 tabs 08/17/23 [Rx Last Taken Unknown] buspirone 5 mg tablet 5 mg PO TID #270 tabs 09/01/23 [Rx Last Taken Unknown] levetiracetam 750 mg tablet 750 mg PO BID seizures 09/16/23 [History Last Taken Unknown] baclofen 20 mg tablet 20 mg PO TID PRN Spasms 09/25/23 [History Last Taken Unknown] compress.stocking,knee,reg,lrg #2 ea 10/02/23 [Rx Last Taken Unknown] escitalopram oxalate 20 mg tablet 20 mg PO DAILY DEPRESSION #90 tabs 10/02/23 [Rx Last Taken Unknown] guaifenesin 1,200 mg tablet, extended release 12 hr (Mucus Relief ER) 1,200 mg PO BID #20 tabs 10/02/23 [Rx Last Taken Unknown] ipratropium 0.5 mg-albuterol 3 mg (2.5 mg base)/3 mL nebulization soln 3 ml inhalation Q4H PRN shortness of breath or wheezing #90 mL 10/02/23 [Rx Last Taken Unknown] lisinopril 20 mg-hydrochlorothiazide 12.5 mg tablet 1 tab PO DAILY blood pressure #90 tabs 10/02/23 [Rx Last Taken Unknown] nebulizers #1 ea 10/02/23 [Rx Last Taken Unknown] furosemide 20 mg tablet 20 mg PO DAILY #0 tabs 10/06/23 [Rx Last Taken Unknown] buprenorphine 20 mcg/hour weekly transdermal patch 1 patch topical QWEEK Chronic pain #1 ea 10/07/23 [Rx Last Taken Unknown] pregabalin 75 mg capsule 75 mg PO TID nerve pain 3 days #9 caps 10/07/23 [Rx Last Taken Unknown] mirtazapine 15 mg tablet 15 mg PO QHS #90 TABLETS 10/13/23 [Rx Last Taken Unknown] calcium alginate-honey 2 X 2 bandage (MediHoney (calcium alginate-honey)) #10 ea 10/22/23 [Rx Last Taken Unknown] nebulizers (Looking for Gamersa Nebulizer System) #1 ea 10/22/23 [Rx Last Taken Unknown] Allergy/AdvReac Type Severity Reaction Status Date / Time clindamycin Allergy Hives Verified 10/25/23 09:49 aspirin AdvReac Severe Upset Verified 10/25/23 09:49 Stomach Penicillins AdvReac Severe vomiting Verified 10/25/23 09:49 Family History Mother Breast cancer Hypertension Hyperlipemia Cancer melanoma, lyphoma ulcers Father Diabetes Myocardial infarction, Onset Age: 67 Hypertension Depression Sister Depression Hyperlipemia Surgical History H/O: hysterectomy History of ankle surgery History of back surgery History of tonsillectomy Hx of colonoscopy Hx of right knee surgery Social History household members: friend(s) Smoking Status: Former smoker Tobacco: How many years used: 25 second hand exposure: No alcohol intake: never substance use type: does not use what type of physical activity do you participate in: walking frequency: 3-4 times per week dari/sikh: Muslim seatbelt use: sometimes ROS Constitutional Constitutional: Reports weakness; Denies anorexia, change in weight, chills, fever(s) or night sweats Eyes Eyes: Denies blurry vision, change in vision, discharge from eye(s) or eye pain Cardiovascular Cardiovascular: Reports dyspnea on exertion; Denies chest pain, claudication, edema or palpitations Respiratory/Chest Respiratory/Chest: Reports shortness of breath with exertion; Denies cough, hemoptysis or shortness of breath at rest Gastrointestinal Gastrointestinal: Denies abdominal pain, constipation, diarrhea, hematemesis, hematochezia, melena, nausea or vomiting Genitourinary Genitourinary: Denies dysuria, hematuria, urinary frequency, urinary hesitancy, urinary incontinence or urinary urgency Musculoskeletal Musculoskeletal: Denies back pain, joint pain, joint stiffness, joint swelling, myalgias or neck pain Neurologic Neurologic: Reports seizures and other Details: Chronic tremor ; Denies abnormal gait, abnormal speech, dizziness, focal weakness, headache(s), loss of vision, numbness, other visual disturbances, paresthesias, syncope or tingling Psychiatric Psychiatric: Denies anxiety, cognitive impairment, depression, irritability, mood swings or suicidal ideation Endocrine Endocrinology: Denies change in body appearance, cold intolerance, excessive sweating, heat intolerance, polydipsia or polyuria Hematologic/Lymphatic Hematologic/Lymphatic: Denies none, anemia, easy bleeding, easy bruising or lymphadenopathy Allergic/Immunologic Allergic/Immunologic: Denies rhinitis, urticaria, eczemia or asthma Vital Signs Vital Signs Vital Signs: 10/25/23 09:49 10/25/23 09:52 10/25/23 11:01 Temperature 98.2 F 98.2 F Temperature Source Temporal Oral Pulse Rate 88 88 Respiratory Rate 24 H 24 H Respiratory Effort Respiratory Pattern Blood Pressure 160/110 H 160/110 H Blood Pressure Mean 126 126 Blood Pressure Source Blood Pressure Position Blood Pressure Location Pulse Ox 97 97 97 Oxygen Delivery Method Nasal Cannula Nasal Cannula Nasal Cannula Oxygen Flow Rate (L/min) 3 3 4 10/25/23 11:01 10/25/23 11:30 10/25/23 10:52 Temperature 97.6 F L 97.8 F Temperature Source Temporal Temporal Pulse Rate 83 88 88 Respiratory Rate 30 H 18 20 H Respiratory Effort Respiratory Pattern Blood Pressure 187/116 H 187/111 H Blood Pressure Mean 139 136 Blood Pressure Source Blood Pressure Position Blood Pressure Location Pulse Ox 94 94 Oxygen Delivery Method Nasal Cannula Nasal Cannula Oxygen Flow Rate (L/min) 3 3 10/25/23 11:56 10/25/23 12:43 10/25/23 13:05 Temperature 97.6 F L 97.6 F L Temperature Source Oral Pulse Rate 88 80 Respiratory Rate 18 20 H Respiratory Effort Non-Labored Respiratory Pattern Normal Blood Pressure 128/76 H 145/87 H Blood Pressure Mean 93 106 Blood Pressure Source Monitor Blood Pressure Position Semi-Fowlers Blood Pressure Location Right Arm Pulse Ox 94 98 Oxygen Delivery Method Nasal Cannula Nasal Cannula Oxygen Flow Rate (L/min) 3 3 Weight Weight: 105.8 kg Body Mass Index (BMI) 37.6 Physical Exam Const alert, oriented x3 and no apparent distress Constitutional Narrative: Patient appears older than her stated age General Appearance: cooperative, well kempt and well developed Orientation / Consciousness: awake, oriented to person, oriented to place and oriented to time HEENT normocephalic, head/scalp atraumatic, hearing grossly normal bilaterally and moist oral mucous membranes Eyes PERRL, EOMs intact bilaterally and conjunctivae normal Neck supple, no JVD, thyroid normal and no carotid bruits General: trachea midline Resp normal respiratory effort, no retractions, no use of accessory muscles and clear to auscultation bilaterally Auscultation: Negative for rales, rhonchi or wheezes Cardio regular rate, regular rhythm, no murmurs, no rub and no gallops GI normal to inspection, nondistended, normoactive bowel sounds, soft to palpation, non-tender and non-distended Extremity no clubbing, cyanosis or edema Skin no rashes or lesions noted General Skin Exam: no breakdown Neuro oriented x3, CN's II-XII intact bilaterally, no focal motor deficits and no sensory deficits noted Neuro Narrative: Patient has a resting tremor of her upper extremities Sensorium / Orientation: awake and alert Speech: speech normal Psych affect normal Results Lab / Micro Data 10/25/23 10:34 10/25/23 10:34 Labs: Laboratory Results - last 24 hr 10/25/23 10:34: WBC 6.4, RBC 4.22, Hgb 11.0 L, Hct 35.9 L, MCV 85.1, MCH 26.1 L, MCHC 30.6 L, RDW Std Deviation 50.9 H, RDW Coeff of Dyana 16.6 H, Plt Count 277, MPV 10.7, Immature Gran % (Auto) 0.900, Neut % (Auto) 67.1, Lymph % (Auto) 20.4, [place] % (Auto) 10.4 H, Eos % (Auto) 0.6, Baso % (Auto) 0.6, Absolute Neuts (auto) 4.3, Absolute Lymphs (auto) 1.31, Nucleated RBC % 0, Sodium 141, Potassium 3.3 L, Chloride 102, Carbon Dioxide 32.0, Anion Gap 7, BUN 13, Creatinine 0.75, Estim Creat Clear Calc 94.42, Est GFR (MDRD) Af Amer 100, Est GFR (MDRD) Non-Af 83, BUN/Creatinine Ratio 17.3, Glucose 90, Calcium 9.3, Total Bilirubin 0.50, AST 28, ALT 21, Alkaline Phosphatase 48, Troponin I High Sens 11, B-Natriuretic Peptide 415.6 H, Total Protein 6.6, Albumin 2.8 L, Globulin 3.8, Albumin/Globulin Ratio 0.7 L Micro: Microbiology 10/25/23 10:35 Mucosa - Nose SARS-CoV-2, Influenza & RSV (PCR) - Final Imaging Radiology Impression Chest X-Ray 10/25/23 10:30 IMPRESSION: Resolving left lower lobe pneumonia and pleural effusion. Electronically Signed: Pablo Cagle MD at 11:18 EDT , Assessment & Plan Assessment/Plan (1) Debility: PLAN: Plan 1. Acute on chronic debility-patient will be placed in observation status on [facility] 3, she will be seen by PT and OT, case management/social work program coordinator will need to arrange for her to be placed in a skilled care facility for further rehab. #2 chronic hypoxic respiratory failure-pulse ox will be monitored, patient is on 3 L of oxygen continuously at home #3 essential hypertension-patient will remain on her present medications #4 tardive dyskinesia-patient is on Cogentin #5 chronic anxiety/depression-patient will remain on her current medications #6 chronic back pain due to degenerative disc disease of the lumbar spine-patient remains on a buprenorphine patch #7 chronic obstructive pulmonary disease-patient will remain on aerosol treatments Total clinical time spent by myself addressing the patient's medical issues, reviewing all of her data, and collaborating with patient's care team: 75 minutes Charges/Coding Visit Charges Inpatient E&M: 18269 Init Hosp L3
[2023-10-25] MEDS: busPIRone 5 MG Tablet PO ×2 (14:03→22:21)
[2023-10-25 17:52] LABS: Bacteria 0 SEEN /hpf (None Seen); Mucous, Urine 0 SEEN /hpf (<or=2+); Red Blood Cells-Urine 0 SEEN /hpf (0-5); Squamous Epithelial Cells - UA 0 SEEN /hpf (5-10)
[2023-10-25 17:53] LABS: Color, Urine Yellow (Yellow); Glucose, Dipstick Normal (Normal); Ketone-Dipstick 5 mg/dl (Negative); Leukocyte Esterase-Dipstick Negative /ul (Negative); Nitrite-Dipstick Negative (Negative); Occult Blood-Urine Negative /ul (Negative); Protein-Dipstick Negative (Negative); Urine Bilirubin Dipstick Negative (Negative); Urine Clarity Clear (Clear); Urine Urobilinogen Normal (Normal)
[2023-10-25 17:59] LABS: White Blood Cells 0-5 SEEN /hpf (0-5)
[2023-10-25] MEDS: levETIRAcetam 750 MG Tablet PO (22:21)
[2023-10-25] MEDS: Heparin Injection (Vial) 5,000 UNIT/ML VIAL 5000 UNIT SC (22:21)
[2023-10-25] MEDS: Benztropine 2 MG Tablet 1 MG PO (22:21)
[2023-10-25] MEDS: Menthol/Lanolin/Calamine/Znox 113 GM Tube 1 APPLIC TOPICAL (22:22)
[2023-10-25] MEDS: Mirtazapine 15 MG Tablet PO (22:22)
[2023-10-25] MEDS: Nystatin Powder 15gm Bottle 1 APPLIC TOPICAL (22:22)
[2023-10-26] VITALS (8 sets, daily range): BP systolic 98–137; BP diastolic 41–69; PULSE 73–91; RESP 16–18; TEMP 36.5–36.9; O2SAT 93–96
[2023-10-26] MEDS: busPIRone 5 MG Tablet PO ×3 (05:55→21:49)
[2023-10-26] MEDS: Pregabalin 75 MG Capsule PO ×3 (05:55→21:49)
[2023-10-26] MEDS: Ipratropium/Albuterol Sulfate 3 ML AMPUL.NEB INHALATION ×3 (06:41→19:49)
[2023-10-26 07:27] LABS: Anion Gap 2 (5-15); BUN 12 mg/dL (7-18); BUN/Creat Ratio 16.4 RATIO (10-20); Chloride 104 mmol/L (98-107); Creatinine, Serum 0.73 mg/dL (0.55-1.02); EST Glomerular Filtration Rate 85 mL/min (>60); Est Glom Filt Rate - Afr Amer 103 mL/min (>60); Glucose 84 mg/dL (74-106); Potassium 3.4 mmol/L (3.5-5.1); Sodium Level 139 mmol/L (136-145)
[2023-10-26] MEDS: Fenofibrate 48 MG Tablet PO (09:02)
[2023-10-26] MEDS: Escitalopram Oxalate 20 MG Tablet PO (09:02)
[2023-10-26] MEDS: ARIPiprazole 2 MG Tablet PO (09:02)
[2023-10-26] MEDS: Menthol/Lanolin/Calamine/Znox 113 GM Tube 1 APPLIC TOPICAL ×2 (09:03→21:49)
[2023-10-26] MEDS: Pantoprazole Sodium 40 MG Tablet PO (09:03)
[2023-10-26] MEDS: levETIRAcetam 750 MG Tablet PO ×2 (09:03→21:49)
[2023-10-26] MEDS: Benztropine 2 MG Tablet 1 MG PO ×2 (09:03→21:49)
[2023-10-26] MEDS: Nystatin Powder 15gm Bottle 1 APPLIC TOPICAL ×2 (09:04→21:50)
[2023-10-26] MEDS: Heparin Injection (Vial) 5,000 UNIT/ML VIAL 5000 UNIT SC ×2 (09:04→21:49)
[2023-10-26] MEDS: Fluticasone 0.05% 1 SPRAY NASAL.SRY NASAL ×2 (09:04→21:49)
--- NOTE | 2023-10-26 09:21 | PN.HOSP_ITS ---
Reason for Visit Reason for Visit: Diagnoses Other malaise (10/25/23) Subjective Subjective Patient is a 63-year-old lady with recurrent hospitalization admitted with progressive generalized weakness and assessment of physical debility made admitt ed to a regular nursing floor for further management Objective Data Objective Data Vital Signs: Vital Signs Temp Pulse Resp BP Pulse Ox O2 Del Method O2 Flow Rate 98.5 F 90 18 98/41 L 95 Nasal Cannula 3 10/26/23 09:09 10/26/23 09:09 10/26/23 09:09 10/26/23 09:09 10/26/23 09:09 10/26/23 09:09 10/26/23 09:09 Oxygen Flow Rate (L/min) 3 Oxygen Delivery Method Nasal Cannula Weight: 105.8 kg Body Mass Index (BMI) 37.6 Intake & Output: Intake and Output for Last 24 Hours 10/24/23 10/25/23 10/26/23 23:59 23:59 23:59 Intake Total 400 / 400 Output Total 400 / 400 Balance 0 / 0 Lab / Micro Data 10/25/23 10:34 10/26/23 06:28 Labs: Laboratory Results - last 24 hr 10/25/23 10:34: WBC 6.4, RBC 4.22, Hgb 11.0 L, Hct 35.9 L, MCV 85.1, MCH 26.1 L, MCHC 30.6 L, RDW Std Deviation 50.9 H, RDW Coeff of Dyana 16.6 H, Plt Count 277, MPV 10.7, Immature Gran % (Auto) 0.900, Neut % (Auto) 67.1, Lymph % (Auto) 20.4, [place] % (Auto) 10.4 H, Eos % (Auto) 0.6, Baso % (Auto) 0.6, Absolute Neuts (auto) 4.3, Absolute Lymphs (auto) 1.31, Nucleated RBC % 0, Sodium 141, Potassium 3.3 L , Chloride 102, Carbon Dioxide 32.0, Anion Gap 7, BUN 13, Creatinine 0.75, Estim Creat Clear Calc 94.42, Est GFR (MDRD) Af Amer 100, Est GFR (MDRD) Non-Af 83, BUN/Creatinine Ratio 17.3, Glucose 90, Calcium 9.3, Total Bilirubin 0.50, AST 28, ALT 21, Alkaline Phosphatase 48, Troponin I High Sens 11, B-Natriuretic Peptide 415.6 H, Total Protein 6.6, Albumin 2.8 L, Globulin 3.8, Album in/Globulin Ratio 0.7 L 10/25/23 17:40: Urine Color Yellow, Urine Clarity Clear, Urine pH 8.0, Ur Specific [place] 1.010, Urine Protein Negative, Urine Glucose (UA) Normal, Urine Ketones 5 H, Urine Occult Blood Negative, Urine Nitrite Negative, Urine Bilirubin Negative, Urine Urobilinogen Normal, Ur Leukocyte Esterase Negative, Urine RBC 0 SEEN, Urine WBC 0-5 SEEN, Ur Squamous Epith Cells 0 SEEN, Urine Bacteria 0 SEEN, Urine Mucus 0 SEEN 10/26/23 06:28: Sodium 139, Potassium 3.4 L, Chloride 104, Carbon Dioxide 33.0 H , Anion Gap 2 L, BUN 12, Creatinine 0.73, Estim Creat Clear Calc 97.00, Est GFR (MDRD) Af Amer 103, Est GFR (MDRD) Non-Af 85, BUN/Creatinine Ratio 16.4, Glucose 84, Calcium 9.0 Micro: Microbiology 10/25/23 10:35 Mucosa - Nose SARS-CoV-2, Influenza & RSV (PCR) - Final Radiography Diagnostic Testing: Radiology Impression Chest X-Ray 10/25/23 10:30 IMPRESSION: Resolving left lower lobe pneumonia and pleural effusion. Electronically Signed: Pablo Cagle MD at 11:18 EDT Reading Location ID and State: [address] [place] [address] Tel , Service support , Physical Exam Narrative GENERAL: cooperative HEENT: Atraumatic; normocephalic EYES; Anicteric, Normal Conjunctiva NECK; supple, normal thyroid, RESPIRATORY: Diminished to auscultation CARDIOVASCULAR: Regular S1 S2, GI: soft, normoactive bowel sounds, : No Renal angle tenderness; EXTREMITIES: No edema, no clubbing, MUSCULOSKELETAL: no muscle wasting NEURO: Awake; no lateralizing signs. SKIN: No Rash PSYCH; Flat affect Assessment & Plan Assessment/Plan (1) Debility: PLAN: Plan Patient is a 63-year-old lady with recurrent hospitalization admitted with progressive generalized weakness and assessment of physical debility made admitted to a regular nursing floor for further management 1. Physical deconditioning - Requested for PT OT eval and social media content manager to assist with discharge planning 2. Chronic hypoxic respiratory failure ? Secondary to COPD patient is on 3 L of oxygen at baseline did continue 3. Hypertension - Blood pressure controlled, home medications continued with dose adjustment as needed 4. Class II obesity with BMI of 36.3 ? Weight loss advised 5. Chronic back pain ? Did continue patient home meds 6. Seizure disorder ? Patient pregabalin, did continue 7. GERD ? On PPI 8. Tobacco dependence - Counseled on cessation, offered nicotine patch for tobacco cravings 9. Depression with anxiety ? Did continue home meds 10. Essential tremors ? Symptomatic treatment 11. Dyslipidemia ? Patient is on fenofibrate 12. Class II obesity with BMI of 37.6 ? Complicating care 13. DVT prophylaxis ? SC heparin Time spent in the patient's overall evaluation,decision-making process, review of diagnostic data, adjustment of management, discussion with other providers, nursing nursing and ancillary staff involved in patient's care documentation, 35Minutes Charges/Coding Visit Charges Inpatient E&M: 64902 Subs Hosp L2
[2023-10-26] MEDS: Baclofen 10 MG Tablet PO (14:49)
--- NOTE | 2023-10-26 15:47 | CHAPLAIN ---
Type of Pastoral Visit _x__ Initial Visit ___ Follow-up Visit ___ On-call Visit ___ General Patient Visit ___ Spiritual Assessment ___ Family Conference ___ Bereavement ___ Rapid Response ___ Code Blue ___ Other (describe below) Pastoral Care Referral From _x__ Patient ___ Family ___ Nurse ___ Physician ___ Fitness Teacher ___ Dye House Worker ___ Other (describe below) Sacrament/Intervention _x__ Active listening ___ Anointing ___ Episcopal ___ Bereavement ___ Communion ___ Monika exploration ___ ___ Life review _x__ Prayer ___ Reconciliation ___ Sacrament of Sick ___ Supportive presence ___ Wedding ___ Other (describe below) Pastoral Comments review of health status, hopes for patient to return home, and for needs for short term placement to regain strength; prayer and presence
--- NOTE | 2023-10-26 15:48 | CASEMGMT ---
AILIN GRAVES Assessment: Face to Face with pt for initial transition planning/care coordination assessment. AILIN GRAVES introduced self and role at [facility], pt voices understanding and consents to assessment. Pt is A&O x4 and answers all questions appropriately at this time. Pt sitting up in chair in no distress with oxygen on. Care providers, pharmacy, and demographics verified/updated. Admitting Dx: debility PCP:Rosalia Specialists:Blaise, pulpat; Titus, neuro; [facility] for pod Preferred Pharmacy: [facility] Insurance: [facility] Prescription Benefit: yes LNOK: Amelia Green, sister and POA Living Arrangements: Pt lives alone in a 3rd floor apt with no steps to enter, pt uses elevator. Pt reports she is not managing well since being home from [facility] and needs assistance. Transportation: Pt states she has not driven in some time. She pays her friend to transport her to medical appts. DME:rollator, lift chair, shower chair, oxygen through [employer] with portability, pox HHC/SNF: Denies hx of [facility] but has been to [facility] most recently and [facility] in the past. Pt states she would like to go back to [facility] for therapy. She denies need for a list of other options. Pt states she would like her sister involved in the conversation when it is known if they will accept or not. Updated SW. Pt states no further concerns/needs. CM to follow. Advised pt to ask CM if any further question/concerns/needs arise, voices understanding. Pt Goal[facility] SN[facility] Plan: [facility] pending acceptance and precnicanor Olmedo RN, CM
--- NOTE | 2023-10-26 16:08 | CASEMGMT ---
Social Work Per RNCM, pt is requesting to go to [facility]. Referral sent via [facility]. Will follow up for acceptance. CELESTINA Ellison
[2023-10-26] MEDS: Juven (unflavored) Packet 1 PACKET PO (18:49)
[2023-10-26] MEDS: Mirtazapine 15 MG Tablet PO (21:49)
[2023-10-27] VITALS (9 sets, daily range): BP systolic 102–129; BP diastolic 60–76; PULSE 64–84; RESP 16–19; TEMP 36.4–36.9; O2SAT 94–100
[2023-10-27] MEDS: Baclofen 10 MG Tablet PO ×3 (05:48→22:01)
[2023-10-27] MEDS: busPIRone 5 MG Tablet PO ×3 (05:48→22:01)
[2023-10-27] MEDS: Pregabalin 75 MG Capsule PO ×3 (05:48→22:01)
[2023-10-27 07:10] LABS: Absolute Lymphocyte Count 1.74 X10^3/uL (0.83-4.51); Absolute Neutrophil Count 3.2 X10^3/uL (2.0-7.7); Basophil# 0.03 X10^3/uL; Basophil% 0.5 % (0-1); Eosinophil# 0.14 X10^3/uL; Eosinophils% 2.5 % (0-5); Hematocrit 33.9 % (37-47); Hemoglobin 10.2 g/dL (12.0-15.0); Lymphocyte # 1.74 X10^3/ul (0.83-4.51); Lymphocyte % 30.6 % (19-41); Mean Corp Hgb Conc 30.1 g/dL (32-36); Mean Corpuscular Hgb 26.3 pg (27.0-32.0); Mean Corpuscular Volume 87.4 fL (81-99); Mean Platelet Vol. 9.5 fl (6.2-12.0); Monocyte# 0.56 X10^3/uL; Monocyte% 9.9 % (0-10); NRBC Flagged by Analyzer 0 % (0-5); Neutrophil # 3.15 X10^3/uL (2.7-7.7); Neutrophil % 55.4 % (47-70); Platelet Count 256 K/mm3 (150-450); RBC Distribution Width CV 16.9 % (11.6-14.6); RBC Distribution Width SD 54.2 fl (35.1-43.9); Red Blood Count 3.88 M/mm3 (4.2-5.4); White Blood Count 5.7 K/mm3 (4.4-11.0)
[2023-10-27] MEDS: Ipratropium/Albuterol Sulfate 3 ML AMPUL.NEB INHALATION ×2 (07:21→19:21)
[2023-10-27 07:45] LABS: Anion Gap 3 (5-15); BUN 20 mg/dL (7-18); Calcium,Total 9.2 mg/dL (8.5-10.1); Chloride 103 mmol/L (98-107); Creatinine, Serum 0.87 mg/dL (0.55-1.02); EST Glomerular Filtration Rate 70 mL/min (>60); Est Glom Filt Rate - Afr Amer 85 mL/min (>60); Estimated Creatinine Clearance 81.39 ml/min; Glucose 93 mg/dL (74-106); Magnesium 1.7 mg/dL (1.6-2.6); Phosphorus 3.7 mg/dL (2.5-4.9); Potassium 3.8 mmol/L (3.5-5.1); Sodium Level 140 mmol/L (136-145)
[2023-10-27] MEDS: ARIPiprazole 2 MG Tablet PO (08:12)
[2023-10-27] MEDS: Menthol/Lanolin/Calamine/Znox 113 GM Tube 1 APPLIC TOPICAL ×2 (08:13→22:01)
[2023-10-27] MEDS: Benztropine 2 MG Tablet 1 MG PO ×2 (08:14→22:01)
[2023-10-27] MEDS: Fluticasone 0.05% 1 SPRAY NASAL.SRY NASAL ×2 (08:15→22:01)
--- NOTE | 2023-10-27 08:15 | PCM.PN.HOSP ---
Reason for Visit Reason for Visit: Diagnoses Other malaise (10/25/23) Subjective Subjective Patient seen she admits to feeling much improved . Case was discussed with case management the day the day prior. Plans for patient to be discharged to residential facility pending acceptance by the facility and insurance preauthorization Objective Data Objective Data Vital Signs: Vital Signs Temp Pulse Resp BP Pulse Ox O2 Del Method O2 Flow Rate 97.5 F L 64 16 114/66 100 Room Air 3 10/27/23 07:00 10/27/23 07:00 10/27/23 07:00 10/27/23 07:00 10/27/23 07:00 10/27/23 07:00 10/27/23 02:00 Oxygen Flow Rate (L/min) 3 Oxygen Delivery Method Room Air Weight: 105.8 kg Body Mass Index (BMI) 37.6 Intake & Output: Intake and Output for Last 24 Hours 10/25/23 10/26/23 10/27/23 23:59 23:59 23:59 Intake Total 1200 / 1200 Output Total 650 / 850 700 / 700 Balance 550 / 350 -700 / -700 Lab / Micro Data 10/27/23 06:51 10/27/23 06:51 Labs: Laboratory Results - last 24 hr 10/27/23 06:51: WBC 5.7, RBC 3.88 L, Hgb 10.2 L, Hct 33.9 L, MCV 87.4, MCH 26.3 L, MCHC 30.1 L, RDW Std Deviation 54.2 H, RDW Coeff of Dyana 16.9 H, Plt Count 256, MPV 9.5, Immature Gran % (Auto) 1.100 H, Neut % (Auto) 55.4, Lymph % (Auto) 30.6, [place] % (Auto) 9.9, Eos % (Auto) 2.5, Baso % (Auto) 0.5, Absolute Neuts (auto) 3.2, Absolute Lymphs (auto) 1.74, Nucleated RBC % 0, Sodium 140, Potassium 3.8, Chloride 103, Carbon Dioxide 34.0 H, Anion Gap 3 L, BUN 20 H, Creatinine 0.87, Estim Creat Clear Calc 81.39, Est GFR (MDRD) Af Amer 85, Est GFR (MDRD) Non-Af 70, BUN/Creatinine Ratio 23.0 H, Glucose 93, Calcium 9.2, Phosphorus 3.7, Magnesium 1.7 Micro: Microbiology 10/25/23 10:35 Mucosa - Nose SARS-CoV-2, Influenza & RSV (PCR) - Final Physical Exam Narrative GENERAL: cooperative HEENT: Atraumatic; normocephalic EYES; Anicteric, Normal Conjunctiva NECK; supple, normal thyroid, RESPIRATORY: Diminished to auscultation CARDIOVASCULAR: Regular S1 S2, GI: soft, normoactive bowel sounds, : No Renal angle tenderness; EXTREMITIES: No edema, no clubbing, MUSCULOSKELETAL: no muscle wasting NEURO: Awake; no lateralizing signs. SKIN: No Rash PSYCH; Flat affect Assessment & Plan Assessment/Plan (1) Debility: PLAN: Plan Patient is a 63-year-old lady with recurrent hospitalization admitted with progressive generalized weakness and assessment of physical debility made admitted to a regular nursing floor for further management 1. Physical deconditioning - Requested for PT OT eval and web content & social media manager to assist with discharge planning ? 10/27/2023;Patient seen she admits to feeling much improved . Case was discussed with case management the day the day prior. Plans for patient to be discharged to residential facility pending acceptance by the facility and insurance preauthorization 2. Chronic hypoxic respiratory failure ? Secondary to COPD patient is on 3 L of oxygen at baseline did continue 3. Hypertension - Blood pressure controlled, home medications continued with dose adjustment as needed 4. Class II obesity with BMI of 36.3 ? Weight loss advised 5. Chronic back pain ? Did continue patient home meds ? 10/27/2023 did resume patient home meds 6. Seizure disorder ? Patient pregabalin, did continue 7. GERD ? On PPI 8. Tobacco dependence - Counseled on cessation, offered nicotine patch for tobacco cravings 9. Depression with anxiety ? Did continue home meds 10. Essential tremors ? Symptomatic treatment 11. Dyslipidemia ? Patient is on fenofibrate 12. Class II obesity with BMI of 37.6 ? Complicating care 13. DVT prophylaxis ? SC heparin Time spent in the patient's overall evaluation,decision-making process, review of diagnostic data, adjustment of management, discussion with other providers, nursing nursing and ancillary staff involved in patient's care documentation, 35Minutes Charges/Coding Visit Charges Inpatient E&M: 04605 Subs Hosp L2
[2023-10-27] MEDS: Heparin Injection (Vial) 5,000 UNIT/ML VIAL 5000 UNIT SC ×2 (08:16→22:01)
[2023-10-27] MEDS: hydroCHLOROthiazide 12.5mg 12.5 MG PO (08:16)
[2023-10-27] MEDS: Nystatin Powder 15gm Bottle 1 APPLIC TOPICAL ×2 (08:17→22:02)
[2023-10-27] MEDS: Furosemide 20 MG Tablet PO (08:17)
[2023-10-27] MEDS: Escitalopram Oxalate 20 MG Tablet PO (08:17)
[2023-10-27] MEDS: levETIRAcetam 750 MG Tablet PO ×2 (08:17→22:01)
[2023-10-27] MEDS: Lisinopril 20 MG Tablet PO (08:19)
[2023-10-27] MEDS: Pantoprazole Sodium 40 MG Tablet PO (08:19)
[2023-10-27] MEDS: Fenofibrate 48 MG Tablet PO (08:19)
[2023-10-27] MEDS: Juven (unflavored) Packet 1 PACKET PO ×2 (12:35→17:40)
[2023-10-27] MEDS: Mirtazapine 15 MG Tablet PO (22:01)
[2023-10-28] VITALS (7 sets, daily range): BP systolic 109–127; BP diastolic 46–77; PULSE 64–79; RESP 16–20; TEMP 36.1–37; O2SAT 93–95
[2023-10-28] MEDS: busPIRone 5 MG Tablet PO ×3 (06:19→21:03)
[2023-10-28] MEDS: Pregabalin 75 MG Capsule PO ×3 (06:20→21:01)
--- NOTE | 2023-10-28 07:18 | PCM.PN.HOSP ---
Reason for Visit Reason for Visit: Diagnoses Other malaise (10/25/23) Subjective Subjective Patient seen no change in clinical condition awaiting insurance approval Objective Data Objective Data Vital Signs: Vital Signs Temp Pulse Resp BP Pulse Ox O2 Del Method O2 Flow Rate 97 F L 78 16 113/64 94 Nasal Cannula 3 10/28/23 03:30 10/28/23 03:30 10/28/23 03:30 10/28/23 03:30 10/28/23 03:30 10/28/23 04:00 10/28/23 04:00 Oxygen Flow Rate (L/min) 3 Oxygen Delivery Method Nasal Cannula Weight: 105.8 kg Body Mass Index (BMI) 37.6 Intake & Output: Intake and Output for Last 24 Hours 10/26/23 10/27/23 10/28/23 23:59 23:59 23:59 Intake Total 1200 / 1200 550 / 550 Output Total 650 / 850 700 / 700 Balance 550 / 350 -150 / -150 Lab / Micro Data 10/28/23 07:22 10/28/23 07:22 Labs: Laboratory Results - last 24 hr 10/27/23 06:51: Sodium 140, Potassium 3.8, Chloride 103, Carbon Dioxide 34.0 H, Anion Gap 3 L, BUN 20 H, Creatinine 0.87, Estim Creat Clear Calc 81.39, Est GFR (MDRD) Af Amer 85, Est GFR (MDRD) Non-Af 70, BUN/Creatinine Ratio 23.0 H, Glucose 93, Calcium 9.2, Phosphorus 3.7, Magnesium 1.7 Micro: Microbiology 10/25/23 10:35 Mucosa - Nose SARS-CoV-2, Influenza & RSV (PCR) - Final Physical Exam Narrative GENERAL: cooperative HEENT: Atraumatic; normocephalic EYES; Anicteric, Normal Conjunctiva NECK; supple, normal thyroid, RESPIRATORY: Diminished to auscultation CARDIOVASCULAR: Regular S1 S2, GI: soft, normoactive bowel sounds, : No Renal angle tenderness; EXTREMITIES: No edema, no clubbing, MUSCULOSKELETAL: no muscle wasting NEURO: Awake; no lateralizing signs. SKIN: No Rash PSYCH; Flat affect Assessment & Plan Assessment/Plan (1) Debility: PLAN: Plan Patient is a 63-year-old lady with recurrent hospitalization admitted with progressive generalized weakness and assessment of physical debility made admitted to a regular nursing floor for further management 1. Physical deconditioning - Requested for PT OT eval and group social worker to assist with discharge planning ? 10/27/2023;Patient seen she admits to feeling much improved . Case was discussed with case management the day the day prior. [facility] pending acceptance by the facility and insurance preauthorization ? 10/28/2023 patient seen remains stable at rest 2. Chronic hypoxic respiratory failure ? Secondary to COPD patient is on 3 L of oxygen at baseline did continue 3. Hypertension - Blood pressure controlled, home medications continued with dose adjustment as needed 4. Class II obesity with BMI of 36.3 ? Weight loss advised 5. Chronic back pain ? Did continue patient home meds ? 10/27/2023 did resume patient home meds 6. Seizure disorder ? Patient pregabalin, did continue 7. GERD ? On PPI 8. Tobacco dependence - Counseled on cessation, offered nicotine patch for tobacco cravings 9. Depression with anxiety ? Did continue home meds 10. Essential tremors ? Symptomatic treatment 11. Dyslipidemia ? Patient is on fenofibrate 12. Class II obesity with BMI of 37.6 ? Complicating care 13. DVT prophylaxis ? SC heparin Time spent in the patient's overall evaluation,decision-making process, review of diagnostic data, adjustment of management, discussion with other providers, nursing nursing and ancillary staff involved in patient's care documentation, 35 Minutes
[2023-10-28] MEDS: Ipratropium/Albuterol Sulfate 3 ML AMPUL.NEB INHALATION ×3 (07:23→19:39)
[2023-10-28 07:39] LABS: Absolute Neutrophil Count 3.7 X10^3/uL (2.0-7.7); Basophil# 0.04 X10^3/uL; Basophil% 0.6 % (0-1); Eosinophil# 0.13 X10^3/uL; Eosinophils% 2.1 % (0-5); Hematocrit 33.4 % (37-47); Lymphocyte % 28.9 % (19-41); Mean Corp Hgb Conc 29.9 g/dL (32-36); Mean Corpuscular Hgb 26.4 pg (27.0-32.0); Mean Corpuscular Volume 88.1 fL (81-99); Mean Platelet Vol. 9.8 fl (6.2-12.0); Monocyte# 0.48 X10^3/uL; Monocyte% 7.7 % (0-10); NRBC Flagged by Analyzer 0 % (0-5); Neutrophil % 59.6 % (47-70); Platelet Count 237 K/mm3 (150-450); RBC Distribution Width CV 16.5 % (11.6-14.6); RBC Distribution Width SD 52.3 fl (35.1-43.9); Red Blood Count 3.79 M/mm3 (4.2-5.4); White Blood Count 6.2 K/mm3 (4.4-11.0)
--- NOTE | 2023-10-28 07:39 | WOUNDNOTE ---
wound photo: right manuel
[2023-10-28 08:06] LABS: Anion Gap 1 (5-15); BUN 31 mg/dL (7-18); BUN/Creat Ratio 35.7 RATIO (10-20); Calcium,Total 9.3 mg/dL (8.5-10.1); Chloride 100 mmol/L (98-107); Creatinine, Serum 0.87 mg/dL (0.55-1.02); EST Glomerular Filtration Rate 70 mL/min (>60); Est Glom Filt Rate - Afr Amer 85 mL/min (>60); Estimated Creatinine Clearance 81.39 ml/min; Glucose 125 mg/dL (74-106); Potassium 3.7 mmol/L (3.5-5.1); Sodium Level 137 mmol/L (136-145)
[2023-10-28] MEDS: ARIPiprazole 2 MG Tablet PO (09:28)
[2023-10-28] MEDS: Benztropine 2 MG Tablet 1 MG PO ×2 (09:28→21:01)
[2023-10-28] MEDS: Juven (unflavored) Packet 1 PACKET PO ×2 (09:28→17:53)
[2023-10-28] MEDS: levETIRAcetam 750 MG Tablet PO ×2 (09:29→21:01)
[2023-10-28] MEDS: Lisinopril 20 MG Tablet PO (09:29)
[2023-10-28] MEDS: Fenofibrate 48 MG Tablet PO (09:29)
[2023-10-28] MEDS: Escitalopram Oxalate 20 MG Tablet PO (09:29)
[2023-10-28] MEDS: hydroCHLOROthiazide 12.5mg 12.5 MG PO (09:29)
[2023-10-28] MEDS: Furosemide 20 MG Tablet PO (09:29)
[2023-10-28] MEDS: Pantoprazole Sodium 40 MG Tablet PO (09:29)
[2023-10-28] MEDS: Menthol/Lanolin/Calamine/Znox 113 GM Tube 1 APPLIC TOPICAL (09:31)
[2023-10-28] MEDS: Fluticasone 0.05% 1 SPRAY NASAL.SRY NASAL ×2 (09:31→20:08)
[2023-10-28] MEDS: Nystatin Powder 15gm Bottle 1 APPLIC TOPICAL ×2 (09:31→20:06)
[2023-10-28] MEDS: Heparin Injection (Vial) 5,000 UNIT/ML VIAL 5000 UNIT SC ×2 (09:32→20:07)
[2023-10-28] MEDS: Baclofen 10 MG Tablet PO ×2 (09:44→21:01)
--- NOTE | 2023-10-28 17:34 | CASEMGMT ---
Social Work SW met with pt and introduced self and role of SW. Pt had requested to go to [facility] for short term rehab prior to returning home. MYAH reviewed therapy notes and spoke with PT/OT and pt is SBA for toileting and ADLs and able to ambulate 23+50+50 ft GCA and transfer. Therapy feels pt is safe to function at home alone. SW spoke with pt at length about options including pursuing SNF or returning home with home health care. Pt requested that her sister Amelia be called and involved with conversation. SW updated on how pt is functioning while in the hospital. Pt feels she can return home, Amelia is concerned about this as she feels pt is utilizing the help of her neighbors too much and is calling the squad to get out of the chair. Amelia has contacted [facility] and started referral process for in home services. Pt and sister having detailed conversation regarding discharge plan and SW left room to allow for this conversation. Phone call to [facility] and left requesting return call to determine where pt is in the process of getting services started. SW later returned to pt's room and discussed discharge plan with pt only. Again, dc options including SNF or home with home health discussed. Pt stating that she feels she can return home. SW and pt problem solved some concerns with returning home. Pt has had difficulty getting out of recliner. SW inquired if pt could get a lift chair and he recliner pt uses is actually a lift chair that has a working lift mechanism, pt just does not use it. MYAH educated pt to the importance of utilizing the lift chair to assist with transfers instead of calling EMS to get out of a chair. Pt does states her toilet is very low. SW educated pt in getting a 3 in 1 commode for over the toilet. Pt states her sister will order one off of [employer] for her. Pt does have a shower chair and a rollator. SW offered setting up MOW and pt declines. Phone call then made to sister Amelia. At this time Amelia is also in agreement with pt returning home. Amelia is going to order a 3 in 1 commode from [employer] and have it shipped to pt home. Pt confirms neighbors can help set up. Amelia spoke about importance of pt utilizing [employer] for transportation. SW offered to provide phone number and pt declined stating she has this number. A list of [employer] Duty SHIPPING TECHNICIAN was emailed to Amelia who requested information to set up services until [facility] starts. Pt admits that she gets lazy and just depends on her neighbors to care for her and that she needs to stop this and be more independent. Pt and sister agreeable to home health care PT/OT/SHIPPING TECHNICIAN. RNCM updated. Pt and sister decline any further SW needs. Plan: home with HHC CELESTINA Ellison
[2023-10-28] MEDS: Mirtazapine 15 MG Tablet PO (21:01)
[2023-10-29 03:01] VITALS: BP 121/67; PULSE 73; RESP 18; TEMP 36.4; O2SAT 93
--- NOTE | 2023-10-29 03:04 | NURSING ---
po 64 % on ra. Pt had 02 off. )2 reappilied at [facility] and 02 did come up
[2023-10-29] MEDS: Pregabalin 75 MG Capsule PO ×2 (05:12→15:38)
[2023-10-29] MEDS: busPIRone 5 MG Tablet PO ×2 (05:12→15:33)
[2023-10-29 07:16] LABS: Absolute Lymphocyte Count 1.67 X10^3/uL (0.83-4.51); Absolute Neutrophil Count 4.6 X10^3/uL (2.0-7.7); Basophil# 0.05 X10^3/uL; Basophil% 0.7 % (0-1); Eosinophil# 0.13 X10^3/uL; Eosinophils% 1.8 % (0-5); Hematocrit 35.3 % (37-47); Hemoglobin 10.8 g/dL (12.0-15.0); Lymphocyte # 1.67 X10^3/ul (0.83-4.51); Lymphocyte % 23.3 % (19-41); Mean Corp Hgb Conc 30.6 g/dL (32-36); Mean Corpuscular Hgb 26.8 pg (27.0-32.0); Mean Corpuscular Volume 87.6 fL (81-99); Mean Platelet Vol. 9.4 fl (6.2-12.0); Monocyte# 0.67 X10^3/uL; Monocyte% 9.4 % (0-10); NRBC Flagged by Analyzer 0 % (0-5); Neutrophil # 4.56 X10^3/uL (2.7-7.7); Neutrophil % 63.7 % (47-70); Platelet Count 243 K/mm3 (150-450); RBC Distribution Width CV 16.3 % (11.6-14.6); RBC Distribution Width SD 52.1 fl (35.1-43.9); Red Blood Count 4.03 M/mm3 (4.2-5.4); White Blood Count 7.2 K/mm3 (4.4-11.0)
[2023-10-29 07:30] VITALS: PULSE 66; RESP 18; O2SAT 98
[2023-10-29] MEDS: Ipratropium/Albuterol Sulfate 3 ML AMPUL.NEB INHALATION ×2 (07:35→13:30)
[2023-10-29 07:38] LABS: Anion Gap -1 (5-15); BUN 32 mg/dL (7-18); Calcium,Total 9.7 mg/dL (8.5-10.1); Chloride 97 mmol/L (98-107); Creatinine, Serum 0.89 mg/dL (0.55-1.02); EST Glomerular Filtration Rate 68 mL/min (>60); Est Glom Filt Rate - Afr Amer 82 mL/min (>60); Estimated Creatinine Clearance 79.57 ml/min; Glucose 94 mg/dL (74-106); Sodium Level 137 mmol/L (136-145)
[2023-10-29] MEDS: Juven (unflavored) Packet 1 PACKET PO (08:01)
[2023-10-29] MEDS: Escitalopram Oxalate 20 MG Tablet PO (08:01)
[2023-10-29] MEDS: Furosemide 20 MG Tablet PO (08:01)
[2023-10-29] MEDS: Fluticasone 0.05% 1 SPRAY NASAL.SRY NASAL (08:02)
[2023-10-29] MEDS: Pantoprazole Sodium 40 MG Tablet PO (08:02)
[2023-10-29] MEDS: Heparin Injection (Vial) 5,000 UNIT/ML VIAL 5000 UNIT SC (08:02)
[2023-10-29] MEDS: Menthol/Lanolin/Calamine/Znox 113 GM Tube 1 APPLIC TOPICAL (08:03)
[2023-10-29] MEDS: levETIRAcetam 750 MG Tablet PO (08:03)
[2023-10-29] MEDS: Benztropine 2 MG Tablet 1 MG PO (08:03)
[2023-10-29] MEDS: ARIPiprazole 2 MG Tablet PO (08:03)
[2023-10-29] MEDS: Nystatin Powder 15gm Bottle 1 APPLIC TOPICAL (08:04)
[2023-10-29 08:05] VITALS: BP 109/86; PULSE 70; RESP 20; TEMP 36.4; O2SAT 95
[2023-10-29] MEDS: Fenofibrate 48 MG Tablet PO (08:05)
--- NOTE | 2023-10-29 08:26 | PCM.DC.SUM ---
Providers Date of Admission: 10/25/23 Date of Discharge: 10/29/23 Primary Care Physician: Dr. Nick Lindsey MD Consultations 10/28/23 04:43 Consult: Onc/Wound/statement clerks manager Routine Comment: Reason for Consult:: right skin wound Reason For Visit: DEBILITY Diagnosis Discharge Diagnosis (1) Debility: Status: Acute Code(s): R53.81 - Other malaise Plan Patient is a 63-year-old lady with recurrent hospitalization admitted with progressive generalized weakness and assessment of physical debility made admitted to a regular nursing floor for further management 1. Physical deconditioning - Requested for PT OT eval and criminal justice social worker to assist with discharge planning ? 10/27/2023;Patient seen she admits to feeling much improved . Case was discussed with case management the day the day prior. Plans for patient to be discharged to retirement facility pending acceptance by the facility and insurance preauthorization ? 10/28/2023 patient seen remains stable at rest ? 10/29/2023 decision was made to discharge patient home with home health with PT 2. Chronic hypoxic respiratory failure ? Secondary to COPD patient is on 3 L of oxygen at baseline did continue 3. Hypertension - Blood pressure controlled, home medications continued with dose adjustment as needed 4. Class II obesity with BMI of 36.3 ? Weight loss advised 5. Chronic back pain ? Did continue patient home meds ? 10/27/2023 did resume patient home meds 6. Seizure disorder ? Patient pregabalin, did continue 7. GERD ? On PPI 8. Tobacco dependence - Counseled on cessation, offered nicotine patch for tobacco cravings 9. Depression with anxiety ? Did continue home meds 10. Essential tremors ? Symptomatic treatment 11. Dyslipidemia ? Patient is on fenofibrate 12. Class II obesity with BMI of 37.6 ? Complicating care 13. DVT prophylaxis ? SC heparin Time spent in the patient's overall evaluation,decision-making process, review of diagnostic data, adjustment of management, discussion with other providers, nursing nursing and ancillary staff involved in patient's care documentation, 35 Minutes Medications at Discharge Home Medications walker #1 ea 10/05/20 fluticasone propionate 50 mcg/actuation nasal spray,suspension (Flonase Allergy Relief) 2 spray intranasal DAILY PRN allergy symptoms #15.8 mL 09/03/21 miscellaneous medical supply (Blood Pressure Cuff) #1 ea 05/06/22 compress.stocking,knee,reg,lrg #2 ea 03/19/23 fenofibrate nanocrystallized 48 mg tablet 48 mg PO DAILY CHOLESTEROL #90 tabs 04/07/23 walker (Ultra-Light Rollator misc) #1 ea 04/09/23 budesonide 160 mcg-glycopyr 9 mcg-formot 4.8 mcg/actuation HFA inhaler (Breztri Aerosphere) 2 inh inhalation BID breathing #3 ea 06/10/23 omeprazole 40 mg capsule,delayed release 40 mg PO DAILY GERD #90 caps 06/29/23 Handicap Placard #1 ea 07/29/23 albuterol sulfate 90 mcg/actuation aerosol inhaler 2 puff inhalation Q4H PRN shortness of breath or wheezing #8.5 grams 08/13/23 aripiprazole 2 mg tablet 2 mg PO DAILY mental health #90 tabs 08/17/23 benztropine 1 mg tablet 1 mg PO BID #60 tabs 08/17/23 buspirone 5 mg tablet 5 mg PO TID #270 tabs 09/01/23 levetiracetam 750 mg tablet 750 mg PO BID seizures 09/16/23 baclofen 20 mg tablet 20 mg PO TID PRN Spasms 09/25/23 compress.stocking,knee,reg,lrg #2 ea 10/02/23 escitalopram oxalate 20 mg tablet 20 mg PO DAILY DEPRESSION #90 tabs 10/02/23 guaifenesin 1,200 mg tablet, extended release 12 hr (Mucus Relief ER) 1,200 mg PO BID #20 tabs 10/02/23 ipratropium 0.5 mg-albuterol 3 mg (2.5 mg base)/3 mL nebulization soln 3 ml inhalation Q4H PRN shortness of breath or wheezing #90 mL 10/02/23 lisinopril 20 mg-hydrochlorothiazide 12.5 mg tablet 1 tab PO DAILY blood pressure #90 tabs 10/02/23 nebulizers #1 ea 10/02/23 furosemide 20 mg tablet 20 mg PO DAILY #0 tabs 10/06/23 buprenorphine 20 mcg/hour weekly transdermal patch 1 patch topical QWEEK Chronic pain #1 ea 10/07/23 pregabalin 75 mg capsule 75 mg PO TID nerve pain 3 days #9 caps 10/07/23 mirtazapine 15 mg tablet 15 mg PO QHS #90 TABLETS 10/13/23 calcium alginate-honey 2 X 2 bandage (MediHoney (calcium alginate-honey)) #10 ea 10/22/23 nebulizers (Marketo Japana Nebulizer System) #1 ea 10/22/23 Physical Exam Narrative GENERAL: cooperative HEENT: Atraumatic; normocephalic EYES; Anicteric, Normal Conjunctiva NECK; supple, normal thyroid, RESPIRATORY: Diminished to auscultation CARDIOVASCULAR: Regular S1 S2, GI: soft, normoactive bowel sounds, : No Renal angle tenderness; EXTREMITIES: No edema, no clubbing, MUSCULOSKELETAL: no muscle wasting NEURO: Awake; no lateralizing signs. SKIN: No Rash PSYCH; Flat affect Weight / BMI Weight Weight: 105.8 kg Body Mass Index (BMI) 37.6 ABG / Lab / Microbiology Data 10/29/23 07:08 10/29/23 07:08 Laboratory: Laboratory Results - last 24 hr 10/29/23 07:08: WBC 7.2, RBC 4.03 L, Hgb 10.8 L, Hct 35.3 L, MCV 87.6, MCH 26.8 L, MCHC 30.6 L, RDW Std Deviation 52.1 H, RDW Coeff of Dyana 16.3 H, Plt Count 243, MPV 9.4, Immature Gran % (Auto) 1.100 H, Neut % (Auto) 63.7, Lymph % (Auto) 23.3, [place] % (Auto) 9.4, Eos % (Auto) 1.8, Baso % (Auto) 0.7, Absolute Neuts (auto) 4.6, Absolute Lymphs (auto) 1.67, Nucleated RBC % 0, Sodium 137, Potassium 4.0, Chloride 97 L, Carbon Dioxide 41.0 H, Anion Gap -1 L, BUN 32 H, Creatinine 0.89, Estim Creat Clear Calc 79.57, Est GFR (MDRD) Af Amer 82, Est GFR (MDRD) Non-Af 68, BUN/Creatinine Ratio 36.0 H, Glucose 94, Calcium 9.7 Microbiology: Microbiology 10/25/23 10:35 Mucosa - Nose SARS-CoV-2, Influenza & RSV (PCR) - Final D/C Instructions Discharge Diet: No restrictions Discharge Activity: Return to Normal Activity Call your doctor if you observe: Fever of 101 or Higher, Shortness of breath, Fainting spells and Chest pain Meaningful Use Info Meaningful Use Meaningful Use Diagnoses (Choose all that apply): None applicable Ischemic Stroke Statin Dosing Therapy Reference: STATIN DOSE THERAPY REFERENCE: * Patients > 75 years receive moderate or high dose statin therapy. * Patients 75 years or YOUNGER should receive HIGH intensity statin dose unless contraindicated. You will be required to document reason for non-treatment if statin daily dose does not meet guidelines. HIGH DOSE STATIN THERAPY DAILY Atorvastatin > than or = to 40 mg Rosuvastatin > than or = to 20 mg Amlodipine + Atorvastatin > than or = to 2.5/40 mg Ezetimibe + Simvastatin 10/80 mg Simvastatin 80mg Discharge Plan Admission Admit Date/Time: 10/25/23 11:34 Attending Provider: Reyes Abernathy Primary Care Provider: Nick Lindsey Consulting Providers: Gato Robert Discharge Orders/Prescriptions Prescriptions: Continued fluticasone propionate [Flonase Allergy Relief] 50 mcg/actuation spray,suspension 2 spray INTRANASAL DAILY PRN (Reason: allergy symptoms) Qty: 15.8 1RF Rx Instructions: administer into each nostril (DME) Blood Pressure Cuff Misc See Rx Instructions .Route Qty: 1 0RF Rx Instructions: Check blood pressure twice a day (DME) compress.stocking,knee,reg,lrg Misc See Rx Instructions .MEDSUPPLY Qty: 2 1RF Rx Instructions: wear daily for venous insufficiency 20-30 mmHg aripiprazole 2 mg tablet 2 mg PO DAILY Qty: 90 1RF Patient Comments: pt. unsure if she takes or not benztropine 1 mg tablet 1 mg PO BID Qty: 60 5RF albuterol sulfate 90 mcg/actuation HFA aerosol inhaler 2 puff inhalation Q4H PRN (Reason: shortness of breath or wheezing) Qty: 8.5 6RF Rx Instructions: administer with spacer escitalopram oxalate 20 mg tablet 20 mg PO DAILY Qty: 90 1RF lisinopril-hydrochlorothiazide 20-12.5 mg tablet 1 tab PO DAILY Qty: 90 1RF (DME) compress.stocking,knee,reg,lrg Misc See Rx Instructions .ROUTE .MEDSUPPLY Qty: 2 0RF Rx Instructions: As directed (DME) nebulizers [facility] [place] See Rx Instructions .Route Qty: 1 0RF Rx Instructions: As directed ipratropium-albuterol 0.5 mg-3 mg(2.5 mg base)/3 mL solution for nebulization 3 ml inhalation Q4H PRN (Reason: shortness of breath or wheezing) Qty: 90 1RF guaifenesin [Mucus Relief ER] 1,200 mg tablet extended release 12hr 1,200 mg PO BID Qty: 20 0RF (DME) nebulizers [Altera Nebulizer System] [facility] [place] See Rx Instructions .Route Qty: 1 0RF Rx Instructions: As directed (DME) MediHoney (hetal alginate-honey) 2 X 2 bandage See Rx Instructions .Route Qty: 10 1RF Rx Instructions: As directed levetiracetam 750 mg tablet 750 mg PO BID Patient Comments: TAKE 1 TABLET BY MOUTH TWICE DAILY for seizure baclofen 20 mg tablet 20 mg PO TID PRN (Reason: Spasms) furosemide 20 mg Tablet 20 mg PO DAILY Qty: 0 0RF pregabalin 75 mg capsule 75 mg PO TID 3 Days Qty: 9 0RF buprenorphine 20 mcg/hour patch weekly 1 patch topical QWEEK Qty: 1 0RF (DME) walker [facility] [place] See Rx Instructions .ROUTE .MEDSUPPLY Qty: 1 0RF Rx Instructions: rollator with wheels and a seat fenofibrate nanocrystallized 48 mg tablet 48 mg PO DAILY Qty: 90 3RF (DME) Ultra-Light Rollator [facility] [place] See Rx Instructions .Route Qty: 1 0RF Rx Instructions: As directed Breztri Aerosphere 160-9-4.8 mcg/actuation HFA aerosol inhaler 2 inh inhalation BID Qty: 3 3RF omeprazole 40 mg capsule,delayed release(DR/EC) 40 mg PO DAILY Qty: 90 1RF (DME) Handicap Placard See Rx Instructions .ROUTE .MEDSUPPLY Qty: 1 0RF Rx Instructions: As directed, length of time 3 years buspirone 5 mg tablet 5 mg PO TID Qty: 270 0RF mirtazapine 15 mg tablet 15 mg PO QHS Qty: 90 1RF Referrals / Follow Up: Nick Lindsey MD [Primary Care Provider] - Within 2 Weeks Disposition Disposition (needs filled in before D/C Order can be placed): Home Health Service Charges/Coding Visit Charges Inpatient E&M: 88923 Disch Hosp >30min
--- NOTE | 2023-10-29 10:32 | CASEMGMT ---
Addendum entered by Vida Ch 10/29/23 15:50: Provided pt. with script for outpatient OT & PT. Faxed script to [facility]. Pt sister notified patient is leaving the building. Addendum entered by Vida Ch 10/29/23 14:46: Received confirmation from all 5 agencies, none can accept. AILIN GRAVES into pt room to discuss. Pt states she feels safe to go home and she would like to go to outpt therapy. She states she can drive her car or use [facility] van. AILIN GRAVES provided pt with [facility] van and [facility] transportation information given by MYAH. Pt asks her sister to be updated. Pt also given portable oxygen tank to transport home. TC to pt sister, she states she is hiring private duty to see pt. She states she also has the building serviceman bringing pt walker to her when she arrives. She is aware that [facility]HC could not be secured. She states she is at her wit's end with the patient as she abuses pain meds, morphine patches and muscle relaxers. She reports this is her last ditch effort with pt. Addendum entered by Vida Ch 10/29/23 13:16: [facility] van cancelled as pt is not ready for dc as HH is not set up. TC to [facility], spoke to intake and they will review referral and call AILIN GRAVES back with decision. Addendum entered by Vida Ch 10/29/23 12:09: Received HH choices from patient sister 1.[facility] 2.[facility] 3.[facility] 4.[facility] Int[facility] [address].[facility] referral sent at this time. Original Note: AILIN GRAVES made aware that pt will dc home with HHC. AILIN GRAVES into pt room, pt sitting up in chair. AILIN GRAVES notified by [facility] that pt was set up for the hospital van to transport home at noon. Pt reports she does not have a portable tank to dc home with. Email sent to [employer] to verify if portable tank can be taken from stock. Pt also reports she does not have her walker either. She is aware that the hospital class c driver is unable to assist. She states maybe someone in her complex can meet her with the walker. Pt requests that her sister make the determination of the MOVEMENT THERAPIST. She asks RN ELY to call her. TC to Amelia, she requests the list of MOVEMENT THERAPIST be sent via text to her phone. A list of MOVEMENT THERAPIST providers including quality and resource use data and consistent with the patient?s preferred geographic region, medical needs, and insurance network were provided via the [employer] Guide Link. She will rank the agencies in order electronically. She states she has ordered a 3 in 1 for pt from [employer] and this will be delivered tomorrow. She states she will call pt home and ask for someone to bring her walker down or pick pt up in w/c when hospital van arrives.
[2023-10-29 11:05] VITALS: BP 122/95; PULSE 70
[2023-10-29] MEDS: Lisinopril 20 MG Tablet PO (11:10)
[2023-10-29] MEDS: hydroCHLOROthiazide 12.5mg 12.5 MG PO (11:10)
--- NOTE | 2023-10-29 12:12 | CASEMGMT ---
Social Work Transportation arranged with [facility] Provide a Ride for transportation home from the hospital. 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 Confirmation #[id number]. [facility] updated. Return call received from Ira at [facility]. Pt completed a phone assessment on 10/25 for screening for services. The [employer] mobile products will call pt within the next 2 weeks to set up an in person assessment. CELESTINA Ellison
[2023-10-29 13:22] VITALS: PULSE 69; RESP 18
--- NOTE | 2023-10-29 13:25 | PHA.DC_ITS ---
Pharmacy [place] Med Reconciliation Pharmacy Service has performed discharge medication reconciliation for this patient. No new medications issued at time of discharge medlist review. Medications reviewed are from previously reported home medications. The patient's discharge medication list was reviewed for discrepancies and discrepancies were resolved. Medications at Discharge Home Medications walker #1 ea 10/05/20 fluticasone propionate 50 mcg/actuation nasal spray,suspension (Flonase Allergy Relief) 2 spray intranasal DAILY PRN allergy symptoms #15.8 mL 09/03/21 miscellaneous medical supply (Blood Pressure Cuff) #1 ea 05/06/22 compress.stocking,knee,reg,lrg #2 ea 03/19/23 fenofibrate nanocrystallized 48 mg tablet 48 mg PO DAILY CHOLESTEROL #90 tabs 04/07/23 walker (Ultra-Light Rollator misc) #1 ea 04/09/23 budesonide 160 mcg-glycopyr 9 mcg-formot 4.8 mcg/actuation HFA inhaler (Breztri Aerosphere) 2 inh inhalation BID breathing #3 ea 06/10/23 omeprazole 40 mg capsule,delayed release 40 mg PO DAILY GERD #90 caps 06/29/23 Handicap Placard #1 ea 07/29/23 albuterol sulfate 90 mcg/actuation aerosol inhaler 2 puff inhalation Q4H PRN shortness of breath or wheezing #8.5 grams 08/13/23 aripiprazole 2 mg tablet 2 mg PO DAILY mental health #90 tabs 08/17/23 benztropine 1 mg tablet 1 mg PO BID #60 tabs 08/17/23 buspirone 5 mg tablet 5 mg PO TID #270 tabs 09/01/23 levetiracetam 750 mg tablet 750 mg PO BID seizures 09/16/23 baclofen 20 mg tablet 20 mg PO TID PRN Spasms 09/25/23 compress.stocking,knee,reg,lrg #2 ea 10/02/23 escitalopram oxalate 20 mg tablet 20 mg PO DAILY DEPRESSION #90 tabs 10/02/23 guaifenesin 1,200 mg tablet, extended release 12 hr (Mucus Relief ER) 1,200 mg PO BID #20 tabs 10/02/23 ipratropium 0.5 mg-albuterol 3 mg (2.5 mg base)/3 mL nebulization soln 3 ml inhalation Q4H PRN shortness of breath or wheezing #90 mL 10/02/23 lisinopril 20 mg-hydrochlorothiazide 12.5 mg tablet 1 tab PO DAILY blood pressure #90 tabs 10/02/23 nebulizers #1 ea 10/02/23 furosemide 20 mg tablet 20 mg PO DAILY #0 tabs 10/06/23 buprenorphine 20 mcg/hour weekly transdermal patch 1 patch topical QWEEK Chronic pain #1 ea 10/07/23 pregabalin 75 mg capsule 75 mg PO TID nerve pain 3 days #9 caps 10/07/23 mirtazapine 15 mg tablet 15 mg PO QHS #90 TABLETS 10/13/23 calcium alginate-honey 2 X 2 [facility]-honey[facility] #10 ea 10/22/23 nebulizers (Proactive Comforta Nebulizer System) #1 ea 10/22/23
[2023-10-29 15:40] VITALS: RESP 18; O2SAT 96
== END 2023-10-29 16:15 | disposition home health service (06) ==
LOC: ED 10:24 → MS3 10-26 07:08
PROVIDERS: Admitting Provider Internal Medicine; Emergency Provider Student in an Organized Health Care Education/Training Program; PCP Internal Medicine; Visit Provider Internal Medicine
DX: R53.81 Other malaise (principal); L97.919 Non-pressure chronic ulcer of unspecified part of right lower leg with unspecified severity; J96.11 Chronic respiratory failure with hypoxia; J44.0 Chronic obstructive pulmonary disease with (acute) lower respiratory infection; G40.909 Epilepsy, unspecified, not intractable, without status epilepticus; E66.9 Obesity, unspecified; Z87.891 Personal history of nicotine dependence; L89.151 Pressure ulcer of sacral region, stage 1; M51.36 Other intervertebral disc degeneration, lumbar region; I10 Essential (primary) hypertension; E78.00 Pure hypercholesterolemia, unspecified; Z68.37 Body mass index [BMI] 37.0-37.9, adult; E87.6 Hypokalemia; Z99.81 Dependence on supplemental oxygen; Z79.899 Other long term (current) drug therapy; F17.210 Nicotine dependence, cigarettes, uncomplicated; R53.1 Weakness; J18.9 Pneumonia, unspecified organism; F41.9 Anxiety disorder, unspecified; F32.A Depression, unspecified; K21.9 Gastro-esophageal reflux disease without esophagitis
CPT/HCPCS: 36415; 71045; 80048; 80053; 81001; 83735; 83880; 84100; 84484; 85025; 87631; 93005; 94640; 96372; 97162; 97166; 97530; 97535; 97802; 99221; 99285; A4216; G0378

== ENCOUNTER 2023-11-29 20:30 | Inpatient (IN) | payer MEDICAID, SELFPAY ==
[2023-11-29] VITALS (9 sets, daily range): BP systolic 105–161; BP diastolic 64–89; PULSE 75–91; RESP 16–28; TEMP 36.6–36.9; O2SAT 94–99; BMI 36.4
--- NOTE | 2023-11-29 21:01 | EKG12_ITS ---
Test Reason : SOB Blood Pressure : / mmHG Vent. Rate : 086 BPM Atrial Rate : 086 BPM P-R Int : 188 ms QRS Dur : 090 ms QT Int : 382 ms P-R-T Axes : 029 -08 035 degrees QTc Int : 457 ms Normal sinus rhythm Low voltage QRS Inferior infarct , age undetermined Abnormal ECG Confirmed by Yared Roa ([id number]), research editor TONYA BOLANOS ([id number]) on 11/30/2023 1:00:09 PM Referred By: KOLTON Confirmed By:Yared Roa
--- NOTE | 2023-11-29 21:02 | ED.VIS.DYS ---
HPI History of Present Illness Chief Complaint: Shortness of Breath Informant: patient and EMS Narrative Narrative: 63-year-old female presenting from home with a chief complaint of dyspnea. Patient states she has a history of COPD is home oxygen dependent. She states for the past week she notes increased swelling of her lower legs. She denies any history of heart failure. She states that she has had increased short of breath with increased cough and increased amount of mucus. She denies any fevers. No vomiting or diarrhea. She states that I felt like I was going to get a chest cold but did not. The breathing issues have been a problem for about the past day and a half. [facility] Medical History Depression Smoker On home oxygen therapy Pharyngitis Obesity History of GI bleed Chronic acquired lymphedema Anxiety and depression Wears dentures Restless legs Gastric reflux Stasis dermatitis COPD (chronic obstructive pulmonary disease) Epilepsy Tobacco abuse Wears glasses Arthritis Walker as ambulation aid High cholesterol Venous insufficiency of both lower extremities Chronic pain Seizures Neuropathy Vitamin D deficiency Asthma Seasonal allergies Hyperlipidemia Hypertension Home Medications ?Medication ?Instructions ?Recorded ?Last Taken ?Type walker #1 ea 10/05/20 02/24/21 Rx fluticasone propionate 50 2 spray intranasal DAILY PRN 09/03/21 Unknown Rx mcg/actuation nasal allergy symptoms #15.8 mL spray,suspension (Flonase Allergy Relief) miscellaneous medical supply #1 ea 05/06/22 Unknown Rx (Blood Pressure Cuff) compress.stocking,knee,reg,lrg #2 ea 03/19/23 Unknown Rx fenofibrate nanocrystallized 48 mg 48 mg PO DAILY CHOLESTEROL #90 tabs 04/07/23 Unknown Rx tablet walker (Ultra-Light Rollator mis) #1 ea 04/09/23 Unknown Rx budesonide 160 mcg-glycopyr 9 2 inh inhalation BID breathing #3 06/10/23 Unknown Rx mcg-formot 4.8 mcg/actuation HFA ea inhaler (Breztri Aerosphere) omeprazole 40 mg capsule,delayed 40 mg PO DAILY GERD #90 caps 06/29/23 Unknown Rx release Handicap Placard #1 ea 07/29/23 Unknown Rx albuterol sulfate 90 mcg/actuation 2 puff inhalation Q4H PRN 08/13/23 09/25/23 Rx aerosol inhaler shortness of breath or wheezing #8.5 grams aripiprazole 2 mg tablet 2 mg PO DAILY mental health #90 08/17/23 Unknown Rx tabs benztropine 1 mg tablet 1 mg PO BID #60 tabs 08/17/23 Unknown Rx buspirone 5 mg tablet 5 mg PO TID #270 tabs 09/01/23 Unknown Rx levetiracetam 750 mg tablet 750 mg PO BID seizures 09/16/23 Unknown History baclofen 20 mg tablet 20 mg PO TID PRN Spasms 09/25/23 Unknown History compress.stocking,knee,reg,lrg #2 ea 10/02/23 Unknown Rx escitalopram oxalate 20 mg tablet 20 mg PO DAILY DEPRESSION #90 tabs 10/02/23 Unknown Rx guaifenesin 1,200 mg tablet, 1,200 mg PO BID #20 tabs 10/02/23 Unknown Rx extended release 12 hr (Mucus Relief ER) ipratropium 0.5 mg-albuterol 3 mg 3 ml inhalation Q4H PRN shortness 10/02/23 Unknown Rx (2.5 mg base)/3 mL nebulization of breath or wheezing #90 mL soln lisinopril 20 1 tab PO DAILY blood pressure #90 10/02/23 Unknown Rx mg-hydrochlorothiazide 12.5 mg tabs tablet furosemide 20 mg tablet 20 mg PO DAILY #0 tabs 10/06/23 Unknown Rx buprenorphine 20 mcg/hour weekly 1 patch topical QWEEK Chronic pain 10/07/23 Unknown Rx transdermal patch #1 ea pregabalin 75 mg capsule 75 mg PO TID nerve pain 3 days #9 10/07/23 Unknown Rx caps mirtazapine 15 mg tablet 15 mg PO QHS #90 TABLETS 10/13/23 Unknown Rx calcium alginate-honey 2 X 2 #10 ea 10/22/23 Unknown Rx bandage (MediHoney (calcium alginate-honey)) nebulizers (Altera Nebulizer #1 ea 10/22/23 Unknown Rx System) nebulizer and compressor #1 ea 11/18/23 Unknown Rx Allergy/AdvReac Type Severity Reaction Status Date / Time clindamycin Allergy Hives Verified 10/25/23 09:49 aspirin AdvReac Severe Upset Verified 10/25/23 09:49 Stomach Penicillins AdvReac Severe vomiting Verified 10/25/23 09:49 Family History Mother Breast cancer Hypertension Hyperlipemia Cancer melanoma, lyphoma ulcers Father Diabetes Myocardial infarction, Onset Age: 67 Hypertension Depression Sister Depression Hyperlipemia Surgical History Hx of colonoscopy History of tonsillectomy Hx of right knee surgery History of ankle surgery H/O: hysterectomy History of back surgery Social History household members: friend(s) Smoking Status: Former smoker Tobacco: How many years used: 25 second hand exposure: No alcohol intake: never substance use type: does not use what type of physical activity do you participate in: walking frequency: 3-4 times per week dari/nondenominational: Buddhist seatbelt use: sometimes ROS ROS ED Constitutional Constitutional ED: Denies chills, fever(s) or weight loss Eyes Eyes: Denies change in vision or diplopia ENT ENT ED: Denies ear pain, rhinorrhea or sore throat Cardiovascular Cardiovascular: Reports other Details: Bilateral leg swelling ; Denies chest pain, orthopnea, palpitations or racing heartbeat Respiratory/Chest Respiratory/Chest: Reports cough, dyspnea, dyspnea on exertion and sputum; Denies orthopnea Gastrointestinal Gastrointestinal: Denies abdominal pain, diarrhea, nausea or vomiting Genitourinary Genitourinary ED: Denies dysuria, hematuria or urinary frequency Musculoskeletal Musculoskeletal: Denies arthralgias or myalgias Integumentary Denies abscess or rash Neurologic Neurologic: Denies headache(s) or weakness Psychiatric Psychiatric: Denies anxiety, depression, suicidal ideation or suicidal thoughts Endocrine Endocrinology: Denies polydipsia, polyphagia or polyuria Allergic/Immunologic Allergic/Immunologic ED: Denies mouth swelling, tongue swelling or urticaria EXAM Physical Exam Const Vital Signs: 11/29/23 20:31 11/29/23 20:35 11/29/23 21:01 Temperature 98.5 F 98.5 F Temperature Source Oral Oral Pulse Rate 87 87 Respiratory Rate 28 H 28 H Respiratory Effort Respiratory Depth Respiratory Pattern Blood Pressure 161/89 H 161/89 H Blood Pressure Mean 113 113 Pulse Ox 98 98 95 Oxygen Delivery Method Non-Rebreather Venturi Mask Nasal Cannula Oxygen Flow Rate (L/min) 6 11/29/23 21:35 11/29/23 21:45 11/29/23 22:00 Temperature 98 F 98 F Temperature Source Oral Temporal Pulse Rate 91 78 Respiratory Rate 16 16 Respiratory Effort Non-Labored Short of Breath Respiratory Depth Normal Respiratory Pattern Tachypnea Blood Pressure 105/64 145/88 H Blood Pressure Mean 77 107 Pulse Ox 98 98 Oxygen Delivery Method Nasal Cannula Oxygen Flow Rate (L/min) 6 11/29/23 22:30 11/29/23 23:00 11/29/23 23:00 Temperature 98.1 F Temperature Source Oral Pulse Rate 75 81 77 Respiratory Rate 16 16 18 Respiratory Effort Respiratory Depth Respiratory Pattern Blood Pressure 126/82 H 137/82 H Blood Pressure Mean 96 100 Pulse Ox 99 98 Oxygen Delivery Method Room Air Oxygen Flow Rate (L/min) 11/29/23 23:04 Temperature Temperature Source Pulse Rate Respiratory Rate Respiratory Effort Respiratory Depth Respiratory Pattern Blood Pressure Blood Pressure Mean Pulse Ox 96 Oxygen Delivery Method Nasal Cannula Oxygen Flow Rate (L/min) 3 Positive well nourished and well developed General Appearance ED: well developed HEENT Reports normocephalic, head/scalp atraumatic and moist mucous membranes Eyes PERRL and EOMs intact bilaterally Neck no lymphadenopathy, supple and no JVD Resp Resp Narrative: Slight tachypnea there may be some slight component of [place] heard at the bases particularly on the right Auscultation: wheezes expiratory wheezes Cardio regular rate, regular rhythm and no murmurs GI normal to inspection, nondistended, normoactive bowel sounds and non-tender Palpation: soft Back/Spine no CVA tenderness and normal ROM Extremity General Extremety ED: Yes edema General Extremity: edema bilateral lower extremity Details: moderate Neuro oriented x3 and CN's II-XII intact bilaterally Sensorium / Orientation: alert Motor Exam: strength 5/5 throughout Psych mental status grossly normal Mood & Affect: Negative for depressed or tearful Skin no rashes or lesions noted and no wounds MDM MDM MDM Narrative Medical decision making narrative: My note interpretation of the chest x-ray is no acute infiltrate effusion or pulmonary edema. White count is 10.9 with hemoglobin 11.4. Normal coags. Glucose 119 creatinine normal 0.71 troponin less than 3 BNP is normal at 78 urinalysis normal. COVID influenza RSV were negative. Patient once again began to feel short of breath and had increased wheezing. I gave her a DuoNeb and Solu-Medrol. Because of the increased leg swelling I also gave her Lasix. Nursing did have her turned up to 6 L nasal cannula which we have now been advanced able to advance back down to 4 L. Plan will be to admit to hospital. History & Record Review Discussion w/independent historian: EMS personnel and Patient Lab Data Attestation: I reviewed the patient's lab results. Labs: Laboratory Results - last 24 hr 11/29/23 11/29/23 21:09 21:20 WBC 10.9 RBC 4.30 Hgb 11.4 L Hct 36.7 L MCV 85.3 MCH 26.5 L MCHC 31.1 L RDW Std Deviation 45.6 H RDW Coeff of [place]ana 14.8 H Plt Count 318 MPV 9.8 Immature Gran % (Auto) 0.500 Neut % (Auto) 71.7 H Lymph % (Auto) 19.0 Bartholomew % (Auto) 7.1 Eos % (Auto) 1.3 Baso % (Auto) 0.4 Absolute Neuts (auto) 7.9 H Absolute Lymphs (auto) 2.07 Nucleated RBC % 0 PT 14.1 INR 1.1 APTT 29.3 Sodium 135 L Potassium 3.5 Chloride 97 L Carbon Dioxide 35.0 H Anion Gap 3 L BUN 15 Creatinine 0.71 Estim Creat Clear Calc 98.00 Est GFR (MDRD) Af Amer 106 Est GFR (MDRD) Non-Af 88 BUN/Creatinine Ratio 21.0 H Glucose 119 H Calcium 9.1 Total Bilirubin 0.30 Direct Bilirubin 0.10 AST 13 L ALT 13 Alkaline Phosphatase 60 Troponin I High Sens < 3 L B-Natriuretic Peptide 78.4 Total Protein 6.6 Albumin 3.0 L Globulin 3.6 Urine Color Yellow Urine Clarity Clear Urine pH 7.0 Ur Specific [place] 1.010 Urine Protein Negative Urine Glucose (UA) Normal Urine Ketones Negative Urine Occult Blood Negative Urine Nitrite Negative Urine Bilirubin Negative Urine Urobilinogen Normal Ur Leukocyte Esterase Negative Urine RBC 0 SEEN Urine WBC 0 SEEN Ur Squamous Epith Cells 0 SEEN Urine Bacteria 0 SEEN Urine Mucus 0 SEEN Radiography Diagnostic Testing: Clinical Impression(s) from Imaging Studies Chest X-Ray 11/29/23 21:30 IMPRESSION: No active disease. Cardiomegaly. Electronically Signed: Darrel Shipley MD at 22:11 EDT , EKG Initial EKG: Attestation: I personally reviewed and interpreted this EKG as follows: Comments: Normal sinus rhythm ventricular rate of 86 bpm. No concerning features of ACS noted Management Discussion w/another healthcare provider: Hospitalist Discharge Plan Dx/Rx/DC Orders Clinical Impression: COPD exacerbation, Chronic hypoxemic respiratory failure, Lymphedema Disposition Disposition: Acute Care Hospital [facility]
[2023-11-29 21:16] LABS: Absolute Lymphocyte Count 2.07 X10^3/uL (0.83-4.51); Absolute Neutrophil Count 7.9 X10^3/uL (2.0-7.7); Basophil# 0.04 X10^3/uL; Basophil% 0.4 % (0-1); Eosinophil# 0.14 X10^3/uL; Eosinophils% 1.3 % (0-5); Hematocrit 36.7 % (37-47); Hemoglobin 11.4 g/dL (12.0-15.0); Lymphocyte # 2.07 X10^3/ul (0.83-4.51); Mean Corp Hgb Conc 31.1 g/dL (32-36); Mean Corpuscular Hgb 26.5 pg (27.0-32.0); Mean Corpuscular Volume 85.3 fL (81-99); Mean Platelet Vol. 9.8 fl (6.2-12.0); Monocyte# 0.77 X10^3/uL; Monocyte% 7.1 % (0-10); NRBC Flagged by Analyzer 0 % (0-5); Neutrophil # 7.85 X10^3/uL (2.7-7.7); Neutrophil % 71.7 % (47-70); Platelet Count 318 K/mm3 (150-450); RBC Distribution Width CV 14.8 % (11.6-14.6); RBC Distribution Width SD 45.6 fl (35.1-43.9); White Blood Count 10.9 K/mm3 (4.4-11.0)
--- NOTE | 2023-11-29 21:30 | RAD_ITS ---
STUDY: X-RAY CHEST REASON FOR EXAM: Female, 63 years old. dyspnea TECHNIQUE: Single AP portable view of the chest. COMPARISON: 10/25/2023 FINDINGS: The lungs are clear and expanded. There is no demonstrated pleural abnormality. There is moderate cardiac enlargement. Normal mediastinum and shyla. Normal visualized pulmonary arteries. Normal visualized aortic arch and descending thoracic aorta. Normal visualized thoracic spine. Normal visualized ribs, clavicles, and shoulders. There is no demonstrated abnormality of the visualized soft tissue structures of the upper abdomen. RAD/Chest 1 View (Portable) IMPRESSION: No active disease. Cardiomegaly. Electronically Signed: Darrel Shipley MD at 22:11 EDT ,
[2023-11-29 21:31] LABS: AST(SGOT) 13 U/L (15-37); Alanine Aminotransfer ALT/SGPT 13 U/L (13-56); Alkaline Phosphatase 60 U/L (45-117); Anion Gap 3 (5-15); BUN 15 mg/dL (7-18); Calcium,Total 9.1 mg/dL (8.5-10.1); Chloride 97 mmol/L (98-107); Creatinine, Serum 0.71 mg/dL (0.55-1.02); EST Glomerular Filtration Rate 88 mL/min (>60); Est Glom Filt Rate - Afr Amer 106 mL/min (>60); Globulin 3.6 g/dL (2.2-4.2); Glucose 119 mg/dL (74-106); Potassium 3.5 mmol/L (3.5-5.1); Protein, Total 6.6 g/dL (6.4-8.2); Sodium Level 135 mmol/L (136-145); Troponin-I HS < 3 pg/mL (3.0-54.0)
[2023-11-29 21:32] LABS: BNP,B-Type NATRIURETIC PEPTIDE 78.4 pg/mL (0-100)
[2023-11-29 21:34] LABS: Bacteria 0 SEEN /hpf (None Seen); Mucous, Urine 0 SEEN /hpf (<or=2+); Red Blood Cells-Urine 0 SEEN /hpf (0-5); Squamous Epithelial Cells - UA 0 SEEN /hpf (5-10); White Blood Cells 0 SEEN /hpf (0-5)
[2023-11-29 21:35] LABS: Color, Urine Yellow (Yellow); Glucose, Dipstick Normal (Normal); Ketone-Dipstick Negative (Negative); Leukocyte Esterase-Dipstick Negative /ul (Negative); Nitrite-Dipstick Negative (Negative); Occult Blood-Urine Negative /ul (Negative); Protein-Dipstick Negative (Negative); Urine Bilirubin Dipstick Negative (Negative); Urine Clarity Clear (Clear); Urine Urobilinogen Normal (Normal)
[2023-11-29 21:43] LABS: International Normalized Ratio 1.1; Prothrombin Time (Protime)PT. 14.1 SECONDS (11.7-14.9)
[2023-11-29 21:44] LABS: Partial Thromboplast Time 29.3 Seconds (24.1-36.2)
[2023-11-29] MEDS: Ipratropium/Albuterol Sulfate 3 ML AMPUL.NEB INHALATION (22:58)
[2023-11-29] MEDS: MethylPREDNISolone 125 MG/2 ML Vial IV (23:15)
--- NOTE | 2023-11-29 23:15 | HP.PCM.HOS_ITS ---
[facility] - General General Date of Service: 11/29/23 Chief Complaint: Shortness of breath HPI Narrative CASI APARICIO, is a 63 F who presents with shortness of breath. Symptoms began yesterday. Chronically, patient is on 3 L of oxygen nasal cannula but became more short of breath. She states that she has been experiencing a sore throat, cough with productive green phlegm, and chills. Chronically she also has a lower extremity edema but has been unchanged. Patient presented to the emergency room where she initially presented on nonrebreather but they are able to wean her down to 6 L. Chest x-ray did not show any acute process. Patient received bronchodilators and methylprednisolone. Additionally, she received a dose of 60 mg of IV furosemide. She is currently feeling better at this time. [facility] Medical History Depression Smoker On home oxygen therapy Pharyngitis Obesity History of GI bleed Chronic acquired lymphedema Anxiety and depression Wears dentures Restless legs Gastric reflux Stasis dermatitis COPD (chronic obstructive pulmonary disease) Epilepsy Tobacco abuse Wears glasses Arthritis Walker as ambulation aid High cholesterol Venous insufficiency of both lower extremities Chronic pain Seizures Neuropathy Vitamin D deficiency Asthma Seasonal allergies Hyperlipidemia Hypertension Home Medications ?Medication ?Instructions ?Recorded ?Last Taken ?Type walker #1 ea 10/05/20 02/24/21 Rx fluticasone propionate 50 2 spray intranasal DAILY PRN 09/03/21 Unknown Rx mcg/actuation nasal allergy symptoms #15.8 mL spray,suspension (Flonase Allergy Relief) miscellaneous medical supply #1 ea 05/06/22 Unknown Rx (Blood Pressure Cuff) compress.stocking,knee,reg,lrg #2 ea 03/19/23 Unknown Rx fenofibrate nanocrystallized 48 mg 48 mg PO DAILY CHOLESTEROL #90 tabs 04/07/23 Unknown Rx tablet walker (Ultra-Light Rollator misc) #1 ea 04/09/23 Unknown Rx budesonide 160 mcg-glycopyr 9 2 inh inhalation BID breathing #3 06/10/23 Unknown Rx mcg-formot 4.8 mcg/actuation HFA ea inhaler (Breztri Aerosphere) omeprazole 40 mg capsule,delayed 40 mg PO DAILY GERD #90 caps 06/29/23 Unknown Rx release Handicap Placard #1 ea 07/29/23 Unknown Rx albuterol sulfate 90 mcg/actuation 2 puff inhalation Q4H PRN 08/13/23 09/25/23 Rx aerosol inhaler shortness of breath or wheezing #8.5 grams aripiprazole 2 mg tablet 2 mg PO DAILY mental health #90 08/17/23 Unknown Rx tabs benztropine 1 mg tablet 1 mg PO BID #60 tabs 08/17/23 Unknown Rx buspirone 5 mg tablet 5 mg PO TID #270 tabs 09/01/23 Unknown Rx levetiracetam 750 mg tablet 750 mg PO BID seizures 09/16/23 Unknown History baclofen 20 mg tablet 20 mg PO TID PRN Spasms 09/25/23 Unknown History compress.stocking,knee,reg,lrg #2 ea 10/02/23 Unknown Rx escitalopram oxalate 20 mg tablet 20 mg PO DAILY DEPRESSION #90 tabs 10/02/23 Unknown Rx guaifenesin 1,200 mg tablet, 1,200 mg PO BID #20 tabs 10/02/23 Unknown Rx extended release 12 hr (Mucus Relief ER) ipratropium 0.5 mg-albuterol 3 mg 3 ml inhalation Q4H PRN shortness 10/02/23 Unknown Rx (2.5 mg base)/3 mL nebulization of breath or wheezing #90 mL soln lisinopril 20 1 tab PO DAILY blood pressure #90 10/02/23 Unknown Rx mg-hydrochlorothiazide 12.5 mg tabs tablet furosemide 20 mg tablet 20 mg PO DAILY #0 tabs 10/06/23 Unknown Rx buprenorphine 20 mcg/hour weekly 1 patch topical QWEEK Chronic pain 10/07/23 Unknown Rx transdermal patch #1 ea pregabalin 75 mg capsule 75 mg PO TID nerve pain 3 days #9 10/07/23 Unknown Rx caps mirtazapine 15 mg tablet 15 mg PO QHS #90 TABLETS 10/13/23 Unknown Rx calcium alginate-honey 2 X 2 #10 ea 10/22/23 Unknown Rx bandage (MediHoney (calcium alginate-honey)) nebulizers (Altera Nebulizer #1 ea 10/22/23 Unknown Rx System) nebulizer and compressor #1 ea 11/18/23 Unknown Rx Allergy/AdvReac Type Severity Reaction Status Date / Time clindamycin Allergy Hives Verified 10/25/23 09:49 aspirin AdvReac Severe Upset Verified 10/25/23 09:49 Stomach Penicillins AdvReac Severe vomiting Verified 10/25/23 09:49 Family History Mother Breast cancer Hypertension Hyperlipemia Cancer melanoma, lyphoma ulcers Father Diabetes Myocardial infarction, Onset Age: 67 Hypertension Depression Sister Depression Hyperlipemia Surgical History Hx of colonoscopy History of tonsillectomy Hx of right knee surgery History of ankle surgery H/O: hysterectomy History of back surgery Social History household members: friend(s) Smoking Status: Former smoker Tobacco: How many years used: 25 second hand exposure: No alcohol intake: never substance use type: does not use what type of physical activity do you participate in: walking frequency: 3-4 times per week dari/church: Islam seatbelt use: sometimes ROS ROS Narrative All review of systems were negative except as mentioned above in the history of present illness and the other review of systems. Vital Signs Vital Signs Vital Signs: 11/29/23 20:31 11/29/23 20:35 11/29/23 21:01 Temperature 36.9 C 36.9 C Temperature Source Oral Oral Pulse Rate 87 87 Respiratory Rate 28 H 28 H Respiratory Effort Respiratory Depth Respiratory Pattern Blood Pressure 161/89 H 161/89 H Blood Pressure Mean 113 113 Pulse Ox 98 98 95 Oxygen Delivery Method Non-Rebreather Venturi Mask Nasal Cannula Oxygen Flow Rate (L/min) 6 11/29/23 21:35 11/29/23 21:45 11/29/23 22:00 Temperature 36.6 C 36.6 C Temperature Source Oral Temporal Pulse Rate 91 78 Respiratory Rate 16 16 Respiratory Effort Non-Labored Short of Breath Respiratory Depth Normal Respiratory Pattern Tachypnea Blood Pressure 105/64 145/88 H Blood Pressure Mean 77 107 Pulse Ox 98 98 Oxygen Delivery Method Nasal Cannula Oxygen Flow Rate (L/min) 11/29/23 22:30 11/29/23 23:00 11/29/23 23:00 Temperature 36.7 C Temperature Source Oral Pulse Rate 75 81 77 Respiratory Rate 16 16 18 Respiratory Effort Respiratory Depth Respiratory Pattern Blood Pressure 126/82 H 137/82 H Blood Pressure Mean 96 100 Pulse Ox 99 98 Oxygen Delivery Method Room Air Oxygen Flow Rate (L/min) 11/29/23 23:04 Temperature Temperature Source Pulse Rate Respiratory Rate Respiratory Effort Respiratory Depth Respiratory Pattern Blood Pressure Blood Pressure Mean Pulse Ox 96 Oxygen Delivery Method Nasal Cannula Oxygen Flow Rate (L/min) 3 Weight Weight: 102.4 kg Body Mass Index (BMI) 36.4 Physical Exam Const alert Constitutional Narrative: No respiratory distress. No conversational dyspnea. Appears older than stated age. HEENT normocephalic, head/scalp atraumatic and hearing grossly normal bilaterally Mouth: moist mucous membranes abnormal parched Eyes Eyes Narrative: No icterus. Glasses. Neck no lymphadenopathy Neck Narrative: No thyromegaly. Resp normal respiratory effort and no retractions Resp Narrative: Diminished breath sounds throughout. Cardio regular rate, regular rhythm, S1 normal heart sound and S2 normal heart sound GI normal to inspection, nondistended, normoactive bowel sounds, soft to palpation, non-tender and non-distended GI Narrative: Obese. Extremity Extremity Narrative: Nonpitting lower extremity edema. Skin Skin Narrative: Chronic mild venous stasis changes to lower extremities. Neuro moves all extremities Sensorium / Orientation: awake and alert Psych Psych Narrative: Flat affect Results Lab / Micro Data Attestation: I reviewed the patient's lab results. 11/29/23 21:09 11/29/23 21:09 Labs: Laboratory Results - last 24 hr 11/29/23 21:09: WBC 10.9, RBC 4.30, Hgb 11.4 L, Hct 36.7 L, MCV 85.3, MCH 26.5 L , MCHC 31.1 L, RDW Std Deviation 45.6 H, RDW Coeff of [place] 14.8 H, Plt Count 318, MPV 9.8, Immature Gran % (Auto) 0.500, Neut % (Auto) 71.7 H, Lymph % (Auto) 19.0, [place] % (Auto) 7.1, Eos % (Auto) 1.3, Baso % (Auto) 0.4, Absolute Neuts (auto) 7.9 H, Absolute Lymphs (auto) 2.07, Nucleated RBC % 0, PT 14.1, INR 1.1, APTT 29.3, Sodium 135 L, Potassium 3.5, Chloride 97 L, Carbon Dioxide 35.0 H, A nion Gap 3 L, BUN 15, Creatinine 0.71, Estim Creat Clear Calc 98.00, Est GFR (MDRD) Af Amer 106, Est GFR (MDRD) Non-Af 88, BUN/Creatinine Ratio 21.0 H, G lucose 119 H, Calcium 9.1, Total Bilirubin 0.30, Direct Bilirubin 0.10, AST 13 L , ALT 13, Alkaline Phosphatase 60, Troponin I High Sens < 3 L, B-Natriuretic Peptide 78.4, Total Protein 6.6, Albumin 3.0 L, Globulin 3.6 11/29/23 21:20: Urine Color Yellow, Urine Clarity Clear, Urine pH 7.0, Ur Specific [place] 1.010, Urine Protein Negative, Urine Glucose (UA) Normal, Urine Ketones Negative, Urine Occult Blood Negative, Urine Nitrite Negative, Urine Bilirubin Negative, Urine Urobilinogen Normal, Ur Leukocyte Esterase Negative, Urine RBC 0 SEEN, Urine WBC 0 SEEN, Ur Squamous Epith Cells 0 SEEN, Urine Bacteria 0 SEEN, Urine Mucus 0 SEEN Micro: Microbiology 11/29/23 21:24 Mucosa - Nose SARS-CoV-2, Influenza & RSV (PCR) - Final EKG Initial EKG: Attestation: I personally reviewed and interpreted this EKG as follows: Prior EKG tracings: available for review EKG Rhythm Intrepretation: Sinus Rhythm (Low voltage) Imaging Radiology Impression Chest X-Ray 11/29/23 21:30 IMPRESSION: No active disease. Cardiomegaly. Electronically Signed: Darrel Shipley MD at 22:11 EDT , Assessment & Plan Assessment/Plan (1) COPD exacerbation: PLAN: Plan Acute COPD exacerbation * No clear sign of infection. Chest x-ray appears unremarkable. COVID, influenza and RSV negative. * Plan: Bronchodilators, methylprednisolone. I do not see an indication to initiate antibiotics at this time.Wean oxygen as tolerated. Patient currently on 6 L, at home, she is on 3 L nasal cannula. Chronic debility * Cannot determine if acutely worse due to her underlying illness. Patient with poor baseline performance status with using a walker at baseline. * Plan: Will have physical Occupational Therapy see her, case management to assist on disposition when patient is medically ready for discharge. Chronic conditions * Lymphedema: Chronic. Stable per the patient. Continue with furosemide. * Seizure disorder: Chronic stable. Continue with levetiracetam. * Obesity class II: Complicates care recovery. Long-term weight loss would be advised. * Underlying psychiatric disorders: Continue with escitalopram, buspirone and aripiprazole * Chronic pain: Continue with buprenorphine patch and pregabalin. VTE prophylaxis with enoxaparin CODE STATUS: Full. Charges/Coding Visit Charges Inpatient E&M: 50609 Init Hosp L3
[2023-11-29] MEDS: Furosemide 100 MG/10 ML Vial 60 MG IV (23:16)
[2023-11-30] VITALS (11 sets, daily range): BP systolic 102–166; BP diastolic 69–91; PULSE 68–88; RESP 18–22; TEMP 36.2–36.9; O2SAT 89–96; BMI 35.6
[2023-11-30] MEDS: Baclofen 10 MG Tablet 20 MG PO ×4 (01:45→21:42)
[2023-11-30] MEDS: Menthol/Lanolin/Calamine/Znox 113 GM Tube 1 APPLIC TOPICAL ×3 (04:53→21:44)
[2023-11-30] MEDS: busPIRone 5 MG Tablet PO ×3 (04:53→21:32)
[2023-11-30] MEDS: 0.9% Saline Lock 10 ML Syringe IV ×3 (04:54→21:33)
[2023-11-30] MEDS: Acetaminophen 325 MG Tablet 650 MG PO ×2 (04:54→21:42)
[2023-11-30] MEDS: Pregabalin 75 MG Capsule PO ×3 (04:54→21:33)
[2023-11-30 06:51] LABS: Absolute Lymphocyte Count 0.66 X10^3/uL (0.83-4.51); Absolute Neutrophil Count 6.9 X10^3/uL (2.0-7.7); Basophil# 0.02 X10^3/uL; Basophil% 0.3 % (0-1); Hematocrit 38.1 % (37-47); Hemoglobin 11.9 g/dL (12.0-15.0); Lymphocyte # 0.66 X10^3/ul (0.83-4.51); Lymphocyte % 8.6 % (19-41); Mean Corp Hgb Conc 31.2 g/dL (32-36); Mean Corpuscular Hgb 26.4 pg (27.0-32.0); Mean Corpuscular Volume 84.7 fL (81-99); Mean Platelet Vol. 9.6 fl (6.2-12.0); Monocyte# 0.06 X10^3/uL; Monocyte% 0.8 % (0-10); NRBC Flagged by Analyzer 0 % (0-5); Neutrophil # 6.86 X10^3/uL (2.7-7.7); Neutrophil % 89.8 % (47-70); Platelet Count 289 K/mm3 (150-450); RBC Distribution Width CV 14.6 % (11.6-14.6); RBC Distribution Width SD 45.1 fl (35.1-43.9); White Blood Count 7.6 K/mm3 (4.4-11.0)
[2023-11-30 07:10] LABS: Anion Gap 4 (5-15); BUN 14 mg/dL (7-18); BUN/Creat Ratio 22.5 RATIO (10-20); Calcium,Total 9.6 mg/dL (8.5-10.1); Chloride 95 mmol/L (98-107); Creatinine, Serum 0.62 mg/dL (0.55-1.02); EST Glomerular Filtration Rate 103 mL/min (>60); Est Glom Filt Rate - Afr Amer 124 mL/min (>60); Estimated Creatinine Clearance 110.81 ml/min; Glucose 156 mg/dL (74-106); Potassium 3.6 mmol/L (3.5-5.1); Sodium Level 136 mmol/L (136-145)
--- NOTE | 2023-11-30 08:25 | PN.HOSP_ITS ---
Reason for Visit Reason for Visit: Diagnoses Chronic obstructive pulmonary disease with (acute) exacerbation (11/29/23) Subjective Subjective Patient is a 63-year-old lady with recurrent hospitalization admitted with progressive generalized weakness, shortness of breath. Diagnosed with COPD with acute exacerbation admitted to the regular nursing floor for further management Objective Data Objective Data Vital Signs: Vital Signs Temp Pulse Resp BP Pulse Ox O2 Del Method O2 Flow Rate 97.7 F L 79 20 H 148/91 H 93 Nasal Cannula 4 11/30/23 04:45 11/30/23 04:45 11/30/23 04:45 11/30/23 04:45 11/30/23 07:36 11/30/23 07:36 11/30/23 07:36 Oxygen Flow Rate (L/min) 4 Oxygen Delivery Method Nasal Cannula Weight: 100 kg Body Mass Index (BMI) 35.6 Intake & Output: Intake and Output for Last 24 Hours 11/28/23 11/29/23 11/30/23 23:59 23:59 23:59 Intake Total 350 / 350 Output Total 2150 / 2150 Balance -1800 / -1800 Lab / Micro Data 11/30/23 06:18 11/30/23 06:18 Labs: Laboratory Results - last 24 hr 11/29/23 21:09: WBC 10.9, RBC 4.30, Hgb 11.4 L, Hct 36.7 L, MCV 85.3, MCH 26.5 L , MCHC 31.1 L, RDW Std Deviation 45.6 H, RDW Coeff of Dyana 14.8 H, Plt Count 318, MPV 9.8, Immature Gran % (Auto) 0.500, Neut % (Auto) 71.7 H, Lymph % (Auto) 19.0, [place] % (Auto) 7.1, Eos % (Auto) 1.3, Baso % (Auto) 0.4, Absolute Neuts (auto) 7.9 H, Absolute Lymphs (auto) 2.07, Nucleated RBC % 0, PT 14.1, INR 1.1, APTT 29.3, Sodium 135 L, Potassium 3.5, Chloride 97 L, Carbon Dioxide 35.0 H, A nion Gap 3 L, BUN 15, Creatinine 0.71, Estim Creat Clear Calc 98.00, Est GFR (MDRD) Af Amer 106, Est GFR (MDRD) Non-Af 88, BUN/Creatinine Ratio 21.0 H, G lucose 119 H, Calcium 9.1, Total Bilirubin 0.30, Direct Bilirubin 0.10, AST 13 L , ALT 13, Alkaline Phosphatase 60, Troponin I High Sens < 3 L, B-Natriuretic Peptide 78.4, Total Protein 6.6, Albumin 3.0 L, Globulin 3.6 11/29/23 21:20: Urine Color Yellow, Urine Clarity Clear, Urine pH 7.0, Ur Specific [place] 1.010, Urine Protein Negative, Urine Glucose (UA) Normal, Urine Ketones Negative, Urine Occult Blood Negative, Urine Nitrite Negative, Urine Bilirubin Negative, Urine Urobilinogen Normal, Ur Leukocyte Esterase Negative, Urine RBC 0 SEEN, Urine WBC 0 SEEN, Ur Squamous Epith Cells 0 SEEN, Urine Bacteria 0 SEEN, Urine Mucus 0 SEEN 11/30/23 06:18: WBC 7.6, RBC 4.50, Hgb 11.9 L, Hct 38.1, MCV 84.7, MCH 26.4 L, M CHC 31.2 L, RDW Std Deviation 45.1 H, RDW Coeff of Dyana 14.6, Plt Count 289, MPV 9.6, Immature Gran % (Auto) 0.500, Neut % (Auto) 89.8 H, Lymph % (Auto) 8.6 L, [place] % (Auto) 0.8, Eos % (Auto) 0.0, Baso % (Auto) 0.3, Absolute Neuts (auto) 6.9, Absolute Lymphs (auto) 0.66 L, Nucleated RBC % 0, Sodium 136, Potassium 3.6, Chloride 95 L, Carbon Dioxide 37.0 H, Anion Gap 4 L, BUN 14, Creatinine 0.62, Estim Creat Clear Calc 110.81, Est GFR (MDRD) Af Amer 124, Est GFR (MDRD) Non-Af 103, BUN/Creatinine Ratio 22.5 H, Glucose 156 H, Calcium 9.6 Micro: Microbiology 11/29/23 21:24 Mucosa - Nose SARS-CoV-2, Influenza & RSV (PCR) - Final Radiography Diagnostic Testing: Radiology Impression Chest X-Ray 11/29/23 21:30 IMPRESSION: No active disease. Cardiomegaly. Electronically Signed: Darrel Shipley MD at 22:11 EDT , Physical Exam Narrative GENERAL: cooperative, but appears ill looking HEENT: Atraumatic; normocephalic EYES; Anicteric, Normal Conjunctiva NECK; supple, normal thyroid, RESPIRATORY: Diminished to auscultation CARDIOVASCULAR: Regular S1 S2, GI: soft, normoactive bowel sounds, : No Renal angle tenderness; EXTREMITIES: stefanie edema, no clubbing, MUSCULOSKELETAL: no muscle wasting NEURO: Awake; no lateralizing signs. SKIN: No Rash PSYCH; Flat affect Assessment & Plan Assessment/Plan (1) COPD exacerbation: PLAN: Plan Patient is a 63-year-old lady with recurrent hospitalization admitted with progressive generalized weakness, shortness of breath. Diagnosed with COPD with acute exacerbation admitted to the regular nursing floor for further management 1. COPD with acute exacerbation - Patient started on bronchodilator treatment, systemic steroid as well as antibiotic therapy. Patient placed on oxygen titrated to keep saturation greater than 90. 2. Chronic hypoxic respiratory failure ? Secondary to COPD patient is on 3 L of oxygen at baseline did continue 3. Hypertension - Blood pressure controlled, home medications continued with dose adjustment as needed 4. Class II obesity with BMI of 36.3 ? Weight loss advised 5. Chronic back pain ? Did continue patient home meds 6. Seizure disorder ? Patient pregabalin, did continue 7. GERD ? On PPI 8. Tobacco dependence - Counseled on cessation, offered nicotine patch for tobacco cravings 9. Depression with anxiety ? Did continue home meds 10. Essential tremors ? Symptomatic treatment 11. Dyslipidemia ? Patient is on fenofibrate 12. Class II obesity with BMI of 35.6 ? Complicating care 13. Physical deconditioning - Requested for PT OT eval and healthcare social worker to assist with discharge planning 14. DVT prophylaxis ? SC heparin Time spent in the patient's overall evaluation,decision-making process, review of diagnostic data, adjustment of management, discussion with other providers, nursing nursing and ancillary staff involved in patient's care documentation, 50 Minutes Charges/Coding Visit Charges Inpatient E&M: 07609 [facility] Hosp L3
[2023-11-30] MEDS: Enoxaparin 40 MG/0.4 ML Syringe SC (09:21)
[2023-11-30] MEDS: Benztropine Mesylate 0.5 MG TABLET PO ×2 (09:21→21:32)
[2023-11-30] MEDS: ARIPiprazole 2 MG Tablet PO (09:21)
[2023-11-30] MEDS: levETIRAcetam 750 MG Tablet PO ×2 (09:21→21:32)
[2023-11-30] MEDS: hydroCHLOROthiazide 12.5mg 12.5 MG PO (09:22)
[2023-11-30] MEDS: Pantoprazole Sodium 40 MG Tablet PO (09:22)
[2023-11-30] MEDS: Fenofibrate 48 MG Tablet PO (09:22)
[2023-11-30] MEDS: Furosemide 20 MG Tablet PO (09:22)
[2023-11-30] MEDS: Lisinopril 20 MG Tablet PO (09:22)
[2023-11-30] MEDS: Escitalopram Oxalate 20 MG Tablet PO (09:22)
[2023-11-30] MEDS: Buprenorphine 10 MCG PATCH.TDWK 2 PATCH TD (09:30)
--- NOTE | 2023-11-30 10:40 | CASEMGMT ---
AILIN GRAVES Assessment: AILIN GRAVES to room to meet with pt for initial transition planning/care coordination assessment. AILIN GRAVES introduced self and role at [facility], pt voices understanding and consents to assessment. Pt is A&O and answers all questions appropriately at this time. Pt resting in bed in no distress with oxygen on. Care providers, pharmacy, and demographics verified/updated. PCP: Dr Lindsey Specialists: Dr Welsh & Daisha Gilbert, TEXTILE BAG SEWER: pulm; Dr Barillas: neuro; Dr Juárez-hernan mggiovani Preferred Pharmacy: [facility]. [facility] Retail @ discharge. Insurance: [facility] Prescription Benefit: yes LNOK: Amelia Green, sister/POA Living Arrangements: Pt lives alone in a 3rd floor apt with elevator access. Pt states she has been independent w/ADL's and IADL's, able to get her own groceries/prepare meals, and manages her own medications. She states this is difficult to do at times. CM: Pt has CM from [facility] but does not remember her name. She states she qualifies for CONTINUITY COORDINATOR's, but there currently is none available. She states her sister tried to hire private-duty help, but states she came one time and that it did not work out. She would like a list of Private-Duty Aide/agencies to take home w/her @ dc Transportation: Pt drives or uses [employer] through [employer]. She states she will need transportation home @ discharge. DME:rollator, lift chair, shower chair, 3-in-1 BSC, oxygen through [employer] with portability, pox. Pt states she has nebulizer solution but does not have a nebulizer and would like to get one. HHC/SNF: Denies hx of HHC but has been to [facility] and [facility] in the past. Pt would like HHC @ discharge, if possible. During pt's last hospitalization in October, attempts made to set up HHC @ discharge but was unsuccessful. Pt states would like HHC @ discharge, if possible, and declines wanting list of HHC options, stating a blanket referral can be sent to all [facility] agencies in network w/her insurance to see if anyone would be able to accept her. She states, if HHC unable to accept her, then she would like a script for OP therapy and interested in going to [facility]. AILIN GRAVES inquired about script that was provided @ discharge in October. Pt states she does not remember receiving a script for that and states has not been going anywhere for therapy. Discussed CCN and [facility] Link. She states would be agreeable to either one of these. Palliative care: Discussed Palliative care and pt interested in referral. Plan: Home w/HHC vs OP therapy vs CCN vs Pt Link Palliative referral Pt will need assist w/transportation @ dc ([facility] van if pt able to get in/out independently vs [id number] thru [employer]) Pt may need arrangements made for walker to be taken to transport vehicle upon arrival to her apartment so pt can use it to ambulate into apt complex. Pt will need portable O2 tank ([employer]) @ discharge. Follow for possible nebulizer Pt to be provided list of private-duty aide/agencies. Therapy evals pending. Follow. MS3 AILIN GRAVES, Vida, made aware of allo of the above. Ze TYSONN AILIN GRAVES
--- NOTE | 2023-11-30 11:21 | CASEMGMT ---
Addendum entered by Vida Ch 11/30/23 11:33: Received returned call from Pham at [facility], they are unable to make a decision to accept pt until pt works with therapy. Will await evals. Original Note: TC to [facility], spoke with Pham, referral made for SN, PT and OT. Will await decision to accept.
--- NOTE | 2023-11-30 11:33 | CASEMGMT ---
Social Work- SW called Maggie Cole, Multi Slide Machine Tender, [facility], and left a voicemail. CELESTINA Blackwood
--- NOTE | 2023-11-30 12:04 | CASEMGMT ---
Detention Officer- MYAH spoke with Maggie, [place]er, [facility], who states that pt had an assessment 11/24 and is pending Passport. Maggie states that pt does not currently have services , as they will have to receive a letter back from her MD, then [facility] will send information out that pt will need to fill out and return, then [facility] will make the final determination. Maggie states that because pt does not currently have services, SW does not need to call back at discharge. MYAH advised RNCM of status of services. CELESTINA Blackwood
--- NOTE | 2023-11-30 12:13 | CASEMGMT ---
Addendum entered by Laura Zapata 11/30/23 14:59: Patient has been accepted by [facility], [facility], and [facility] [place]. RN CM updated. Laura Zapata DC Planning Asst. Addendum entered by Laura Zapata 11/30/23 13:58: [facility] and [facility] declined d/t being out of network. [facility] and [facility] have yet to review referral. Awaiting return call from [facility] and response from [facility] HH. Laura Zapata DC Planning Asst. Addendum entered by Laura Zapata 11/30/23 13:40: [facility] and [facility] declined d/t being out of network. [facility] declined (out of service area), [facility] declined (staffing), and [facility] declined (no reason given). left for N to check on status of referral. Laura Zapata DC Planning Asst. Addendum entered by Laura Zapata 11/30/23 12:18: [facility], [facility], [facility], [facility], [facility], and [facility] all declined d/t being out of network. [facility], [facility], and [facility] unable to accommodate at this time. Laura Zapata DC Planning Asst. Original Note: Discharge Planning referrals sent to; [facility], [facility], [facility], [facility], [facility], [facility], [facility], [facility], [facility], [facility], [facility], [facility], [facility], [facility], [facility], [facility], [facility], [facility], [facility], and [facility]. Laura Zapata DC Planning Asst.
[2023-11-30] MEDS: Ensure Plus High Protein 120 ML LIQUID PO (12:51)
--- NOTE | 2023-11-30 15:06 | CASEMGMT ---
Received tc from Tarah at [facility], they are able to accept pt for services. [id number] ELY into pt room, provided pt with a list of agencies of the 3 agencies who accepted pt for services. Pt has chosen [facility]. Message sent to other two accepting agencies to make aware they are not FOC. Discussed with patient the expectations of homecare, visit frequency and how this will be determined, services ordered and goal of keeping her as independent as she can be at home without rehospitalization and management of her disease processes. Pt states this is her goal as well. She is aware that her participation in her care is important. Pt is aware that [facility] will see her the day after dc from the hospital. Pt screened with [facility] Palliative Care screening tool, pt met criteria. Pt is agreeable to service, received order from hospitalist. Referral sent via email at this time. Pt is aware of [facility] referral for follow up once HH is complete. She is agreeable to this service. Order entered for [facility]. Pt provided with medic alert handout of options as well as [facility] pamphlet. Pt to consider this and requested SW follow up with her to make referral. SW aware. Provided pt with a list of private duty option for aides. She states that her sister will be interested in this and she will share with her. Pt states she has nebulizer solution at home but no nebulizer. Pt would like this from [facility] which is where she gets her oxygen. Rx prepared for hospitalist. Pt states she does not have a portable oxygen tank to go home on. Email to Jaxson at [facility] to verify if pt can take one from stock upon dc. Will await response. Discussed transportation options home with pt, she states she cannot get out of the hospital van on her own and would like to use her insurance transportation. She is aware that this RN ELY will set up on day of dc. Pt states she will call her tire building supervisor to have her walker brought down to her once she arrives to her home. Pt denies any further questions at this time.
--- NOTE | 2023-11-30 15:23 | CHAPLAIN ---
Type of Pastoral Visit _x__ Initial Visit ___ Follow-up Visit ___ On-call Visit ___ General Patient Visit ___ Spiritual Assessment ___ Family Conference ___ Bereavement ___ Rapid Response ___ Code Blue ___ Other (describe below) Pastoral Care Referral From _x__ Patient ___ Family ___ Nurse ___ Physician ___ Healthcare Network Pricing Consultant ___ Fbi Investigator ___ Other (describe below) Sacrament/Intervention _x__ Active listening ___ Anointing ___ Spiritism ___ Bereavement ___ Communion ___ Monika exploration ___ ___ Life review _x__ Prayer ___ Reconciliation ___ Sacrament of Sick ___ Supportive presence ___ Wedding ___ Other (describe below) Pastoral Comments patient has been seen in many previous admissions; pt admits that she has to keep coming to the hospital and she does not know why; pt says that God is not ready for her and that she just needs to get well again; pt states that she has no needs but would like a prayer to be spoken
[2023-11-30] MEDS: Mirtazapine 15 MG Tablet PO (21:32)
[2023-12-01] VITALS (11 sets, daily range): BP systolic 114–138; BP diastolic 63–103; PULSE 51–70; RESP 16–22; TEMP 36.5–36.8; O2SAT 85–98
[2023-12-01 06:40] LABS: Absolute Lymphocyte Count 1.28 X10^3/uL (0.83-4.51); Absolute Neutrophil Count 10.4 X10^3/uL (2.0-7.7); Basophil# 0.01 X10^3/uL; Basophil% 0.1 % (0-1); Hematocrit 34.2 % (37-47); Hemoglobin 11.1 g/dL (12.0-15.0); Lymphocyte # 1.28 X10^3/ul (0.83-4.51); Lymphocyte % 10.4 % (19-41); Mean Corp Hgb Conc 32.5 g/dL (32-36); Mean Corpuscular Hgb 27.1 pg (27.0-32.0); Mean Corpuscular Volume 83.6 fL (81-99); Monocyte# 0.54 X10^3/uL; Monocyte% 4.4 % (0-10); NRBC Flagged by Analyzer 0 % (0-5); Neutrophil % 84.5 % (47-70); Platelet Count 298 K/mm3 (150-450); RBC Distribution Width CV 14.1 % (11.6-14.6); Red Blood Count 4.09 M/mm3 (4.2-5.4); White Blood Count 12.3 K/mm3 (4.4-11.0)
[2023-12-01] MEDS: Acetaminophen 325 MG Tablet 650 MG PO (07:03)
[2023-12-01] MEDS: Menthol/Lanolin/Calamine/Znox 113 GM Tube 1 APPLIC TOPICAL ×2 (07:04→21:03)
[2023-12-01] MEDS: Pregabalin 75 MG Capsule PO ×3 (07:04→20:57)
[2023-12-01] MEDS: busPIRone 5 MG Tablet PO ×3 (07:04→20:57)
[2023-12-01 07:20] LABS: Anion Gap 3 (5-15); BUN 22 mg/dL (7-18); BUN/Creat Ratio 32.4 RATIO (10-20); Calcium,Total 9.6 mg/dL (8.5-10.1); Chloride 91 mmol/L (98-107); Creatinine, Serum 0.68 mg/dL (0.55-1.02); EST Glomerular Filtration Rate 93 mL/min (>60); Est Glom Filt Rate - Afr Amer 112 mL/min (>60); Estimated Creatinine Clearance 101.04 ml/min; Glucose 131 mg/dL (74-106); Magnesium 1.9 mg/dL (1.6-2.6); Phosphorus 3.2 mg/dL (2.5-4.9); Potassium 3.7 mmol/L (3.5-5.1); Sodium Level 130 mmol/L (136-145)
--- NOTE | 2023-12-01 07:49 | PCM.PN.HOSP ---
Reason for Visit Reason for Visit: Diagnoses Chronic obstructive pulmonary disease with (acute) exacerbation (11/29/23) Subjective Subjective Patient seen breathing improved. She however remains deconditioned and is agreeable to being discharged to a senior living facility when medically ready. Discussed with case management Objective Data Objective Data Vital Signs: Vital Signs Temp Pulse Resp BP Pulse Ox O2 Del Method O2 Flow Rate 97.7 F L 70 22 H 114/103 H 98 High Flow 6 12/01/23 06:30 12/01/23 06:30 12/01/23 06:30 12/01/23 06:30 12/01/23 07:30 12/01/23 07:30 12/01/23 07:30 Oxygen Flow Rate (L/min) 6 Oxygen Delivery Method High Flow Weight: 100 kg Body Mass Index (BMI) 35.6 Intake & Output: Intake and Output for Last 24 Hours 11/29/23 11/30/23 12/01/23 23:59 23:59 23:59 Intake Total 350 / 350 Output Total 2150 / 2150 Balance -1800 / -1800 Lab / Micro Data 12/01/23 05:54 12/01/23 05:54 Labs: Laboratory Results - last 24 hr 12/01/23 05:54: WBC 12.3 H, RBC 4.09 L, Hgb 11.1 L, Hct 34.2 L, MCV 83.6, MCH 27.1, MCHC 32.5, RDW Std Deviation 43.0, RDW Coeff of Dyana 14.1, Plt Count 298, MPV 10.0, Immature Gran % (Auto) 0.600, Neut % (Auto) 84.5 H, Lymph % (Auto) 10.4 L, [place] % (Auto) 4.4, Eos % (Auto) 0.0, Baso % (Auto) 0.1, Absolute Neuts (auto) 10.4 H, Absolute Lymphs (auto) 1.28, Nucleated RBC % 0, Sodium 130 L, Potassium 3.7, Chloride 91 L, Carbon Dioxide 36.0 H, Anion Gap 3 L, BUN 22 H, Creatinine 0.68, Estim Creat Clear Calc 101.04, Est GFR (MDRD) Af Amer 112, Est GFR (MDRD) Non-Af 93, BUN/Creatinine Ratio 32.4 H, Glucose 131 H, Calcium 9.6, Phosphorus 3.2, Magnesium 1.9 Micro: Microbiology 11/29/23 21:24 Mucosa - Nose SARS-CoV-2, Influenza & RSV (PCR) - Final Physical Exam Narrative GENERAL: cooperative, but appears ill looking HEENT: Atraumatic; normocephalic EYES; Anicteric, Normal Conjunctiva NECK; supple, normal thyroid, RESPIRATORY: Diminished to auscultation CARDIOVASCULAR: Regular S1 S2, GI: soft, normoactive bowel sounds, : No Renal angle tenderness; EXTREMITIES: stefanie edema, no clubbing, MUSCULOSKELETAL: no muscle wasting NEURO: Awake; no lateralizing signs. SKIN: No Rash PSYCH; Flat affect Assessment & Plan Assessment/Plan (1) COPD exacerbation: PLAN: Plan Patient is a 63-year-old lady with recurrent hospitalization admitted with progressive generalized weakness, shortness of breath. Diagnosed with COPD with acute exacerbation admitted to the regular nursing floor for further management 1. COPD with acute exacerbation - Patient started on bronchodilator treatment, systemic steroid as well as antibiotic therapy. Patient placed on oxygen titrated to keep saturation greater than 90. 2. Chronic hypoxic respiratory failure ? Secondary to COPD patient is on 3 L of oxygen at baseline did continue 3. Hypertension - Blood pressure controlled, home medications continued with dose adjustment as needed 4. Class II obesity with BMI of 36.3 ? Weight loss advised 5. Chronic back pain ? Did continue patient home meds 6. Seizure disorder ? Patient pregabalin, did continue 7. GERD ? On PPI 8. Tobacco dependence - Counseled on cessation, offered nicotine patch for tobacco cravings 9. Depression with anxiety ? Did continue home meds 10. Essential tremors ? Symptomatic treatment 11. Dyslipidemia ? Patient is on fenofibrate 12. Class II obesity with BMI of 35.6 ? Complicating care 13. Physical deconditioning - Requested for PT OT eval and social work administrator to assist with discharge planning 14. Hyponatremia -Secondary to patient being on HCTZ discontinued subsequent monitoring with daily electrolytes ordered 15. DVT prophylaxis ? SC heparin Time spent in the patient's overall evaluation,decision-making process, review of diagnostic data, adjustment of management, discussion with other providers, nursing nursing and ancillary staff involved in patient's care documentation, 36 Minutes Charges/Coding Visit Charges Inpatient E&M: 63212 Subs Hosp L2
--- NOTE | 2023-12-01 10:05 | CASEMGMT ---
Social Work- SW met with pt to discuss d/c plans, as physician indicated that he had spoken to pt about rehab @ d/c. Pt reports that she is aware of her need for strengthening, as her ADLs have been increasingly challenging for pt. Pt acknowledges that [facility] has not yet begun services. Pt is agreeable to rehab prior to return home. A list of SNF providers including quality and resource use data and consistent with the patient?s preferred geographic region, medical needs, and insurance network were provided from the [facility] Guide. Pt chose [facility] as FOC; SW completed referral. RNCM advised of pt plans. CELESTINA Blackwood
[2023-12-01] MEDS: ARIPiprazole 2 MG Tablet PO (10:06)
[2023-12-01] MEDS: Benztropine Mesylate 0.5 MG TABLET PO ×2 (10:07→20:57)
[2023-12-01] MEDS: levETIRAcetam 750 MG Tablet PO ×2 (10:07→20:57)
[2023-12-01] MEDS: Furosemide 20 MG Tablet PO (10:07)
[2023-12-01] MEDS: Enoxaparin 40 MG/0.4 ML Syringe SC (10:08)
[2023-12-01] MEDS: Escitalopram Oxalate 20 MG Tablet PO (10:08)
[2023-12-01] MEDS: Pantoprazole Sodium 40 MG Tablet PO (10:08)
[2023-12-01] MEDS: Lisinopril 20 MG Tablet PO (10:09)
[2023-12-01] MEDS: Fenofibrate 48 MG Tablet PO (10:09)
--- NOTE | 2023-12-01 12:03 | CASEMGMT ---
Addendum entered by Vida Ch 12/01/23 14:52: AILIN GRAVES into pt room, pt has spoken with her dba manager. The dba manager will bring pt walker and portable oxygen tank and then transport pt home. Updated hospitalist that pt now wants to go home. Pt will dc tomorrow. Updated Pham at [facility] that pt will now go home again. Addendum entered by Vida Ch 12/01/23 14:18: AILIN GRAVES made aware by SW that pt does want to go home now. [facility] is not allowing pt to take a portable tank from stock if she has them at home. AILIN GRAVES into pt room, pt confirms she would like to go home. She states she does have portable oxygen tanks. Pt to call her dba manager and see if they can bring her walker and portable oxygen tank to go home on. AILIN GRAVES to check back. Original Note: TC fely Nath at [facility], made aware that pt is now preferring SNF and requested to hold referral until this is confirmed.
--- NOTE | 2023-12-01 13:53 | CASEMGMT ---
Social Work- SW met with pt to discuss that she would be unable to smoke at [facility]. Pt states that this is an issue and she would just prefer to go home with home health services. SW advised that pt previously agreed to placement per physician recommendation and discussed the benefits/reasons for inpatient rehab vs in-home rehab. Pt reports that she prefers in-home services. SW advised RNCM. CELESTINA Blackwood
[2023-12-01] MEDS: Baclofen 10 MG Tablet 20 MG PO ×2 (14:12→23:21)
[2023-12-01] MEDS: Mirtazapine 15 MG Tablet PO (23:21)
[2023-12-01] MEDS: Ipratropium/Albuterol Sulfate 3 ML AMPUL.NEB INHALATION (23:45)
[2023-12-02] MEDS: Pregabalin 75 MG Capsule PO (05:57)
[2023-12-02] MEDS: busPIRone 5 MG Tablet PO (05:58)
[2023-12-02] MEDS: Menthol/Lanolin/Calamine/Znox 113 GM Tube 1 APPLIC TOPICAL (05:59)
[2023-12-02 06:00] VITALS: BP 133/79; PULSE 64; RESP 20; TEMP 36.7; O2SAT 96
[2023-12-02 07:25] LABS: Absolute Lymphocyte Count 1.23 X10^3/uL (0.83-4.51); Absolute Neutrophil Count 8.2 X10^3/uL (2.0-7.7); Basophil# 0.01 X10^3/uL; Basophil% 0.1 % (0-1); Hematocrit 37.2 % (37-47); Hemoglobin 11.6 g/dL (12.0-15.0); Lymphocyte # 1.23 X10^3/ul (0.83-4.51); Lymphocyte % 12.1 % (19-41); Mean Corp Hgb Conc 31.2 g/dL (32-36); Mean Corpuscular Hgb 26.1 pg (27.0-32.0); Mean Corpuscular Volume 83.8 fL (81-99); Mean Platelet Vol. 9.5 fl (6.2-12.0); Monocyte# 0.64 X10^3/uL; Monocyte% 6.3 % (0-10); NRBC Flagged by Analyzer 0 % (0-5); Neutrophil # 8.21 X10^3/uL (2.7-7.7); Neutrophil % 81.1 % (47-70); Platelet Count 307 K/mm3 (150-450); RBC Distribution Width CV 14.3 % (11.6-14.6); RBC Distribution Width SD 43.7 fl (35.1-43.9); Red Blood Count 4.44 M/mm3 (4.2-5.4); White Blood Count 10.1 K/mm3 (4.4-11.0)
[2023-12-02 07:57] LABS: Anion Gap 3 (5-15); BUN 25 mg/dL (7-18); BUN/Creat Ratio 31.9 RATIO (10-20); Calcium,Total 9.5 mg/dL (8.5-10.1); Chloride 93 mmol/L (98-107); Creatinine, Serum 0.78 mg/dL (0.55-1.02); EST Glomerular Filtration Rate 79 mL/min (>60); Est Glom Filt Rate - Afr Amer 95 mL/min (>60); Estimated Creatinine Clearance 88.08 ml/min; Glucose 113 mg/dL (74-106); Potassium 3.7 mmol/L (3.5-5.1); Sodium Level 134 mmol/L (136-145)
[2023-12-02] MEDS: Furosemide 20 MG Tablet PO (09:14)
[2023-12-02] MEDS: ARIPiprazole 2 MG Tablet PO (09:14)
[2023-12-02] MEDS: Fenofibrate 48 MG Tablet PO (09:14)
[2023-12-02] MEDS: levETIRAcetam 750 MG Tablet PO (09:14)
[2023-12-02] MEDS: Escitalopram Oxalate 20 MG Tablet PO (09:14)
[2023-12-02] MEDS: Pantoprazole Sodium 40 MG Tablet PO (09:14)
[2023-12-02] MEDS: Lisinopril 20 MG Tablet PO (09:14)
[2023-12-02] MEDS: Benztropine Mesylate 0.5 MG TABLET PO (09:14)
[2023-12-02] MEDS: Enoxaparin 40 MG/0.4 ML Syringe SC (09:15)
--- NOTE | 2023-12-02 09:36 | DS.PCM_ITS ---
Providers Date of Admission: 11/29/23 Date of Discharge: 12/02/23 Primary Care Physician: Dr. Nick Lindsey MD Reason For Visit: COPD EXACERBATION Diagnosis Discharge Diagnosis (1) COPD exacerbation: Status: Chronic Code(s): J44.1 - Chronic obstructive pulmonary disease with (acute) exacerbation Plan Patient is a 63-year-old lady with recurrent hospitalization admitted with progressive generalized weakness, shortness of breath. Diagnosed with COPD with acute exacerbation admitted to the regular nursing floor for further management 1. COPD with acute exacerbation - Patient started on bronchodilator treatment, systemic steroid as well as antibiotic therapy. Patient placed on oxygen titrated to keep saturation greater than 90. 2. Chronic hypoxic respiratory failure ? Secondary to COPD patient is on 3 L of oxygen at baseline did continue 3. Hypertension - Blood pressure controlled, home medications continued with dose adjustment as needed 4. Class II obesity with BMI of 36.3 ? Weight loss advised 5. Chronic back pain ? Did continue patient home meds 6. Seizure disorder ? Patient pregabalin, did continue 7. GERD ? On PPI 8. Tobacco dependence - Counseled on cessation, offered nicotine patch for tobacco cravings 9. Depression with anxiety ? Did continue home meds 10. Essential tremors ? Symptomatic treatment 11. Dyslipidemia ? Patient is on fenofibrate 12. Class II obesity with BMI of 35.6 ? Complicating care 13. Physical deconditioning - Requested for PT OT eval and social research assistant to assist with discharge planning ? 12/02/2023; patient was offered option of being discharged to custodial facility patient declined 14. Hyponatremia -Secondary to patient being on HCTZ discontinued subsequent monitoring with daily electrolytes ordered 15. DVT prophylaxis ? SC heparin Time spent in the patient's overall evaluation,decision-making process, review of diagnostic data, adjustment of management, discussion with other providers, nursing nursing and ancillary staff involved in patient's care documentation, 36 Minutes Medications at Discharge Home Medications walker #1 ea 10/05/20 miscellaneous medical supply (Blood Pressure Cuff) #1 ea 05/06/22 compress.stocking,knee,reg,lrg #2 ea 03/19/23 fenofibrate nanocrystallized 48 mg tablet 48 mg PO DAILY CHOLESTEROL #90 tabs 04/07/23 walker (Ultra-Light Rollator misc) #1 ea 04/09/23 budesonide 160 mcg-glycopyr 9 mcg-formot 4.8 mcg/actuation HFA inhaler (Breztri Aerosphere) 2 inh inhalation BID breathing #3 ea 06/10/23 omeprazole 40 mg capsule,delayed release 40 mg PO DAILY GERD #90 caps 06/29/23 Handicap Placard #1 ea 07/29/23 aripiprazole 2 mg tablet 2 mg PO DAILY mental health #90 tabs 08/17/23 buspirone 5 mg tablet 5 mg PO TID depression #270 tabs 09/01/23 levetiracetam 750 mg tablet 750 mg PO BID seizures 09/16/23 baclofen 20 mg tablet 20 mg PO TID PRN Spasms 09/25/23 compress.stocking,knee,reg,lrg #2 ea 10/02/23 escitalopram oxalate 20 mg tablet 20 mg PO DAILY DEPRESSION #90 tabs 10/02/23 buprenorphine 20 mcg/hour weekly transdermal patch 1 patch topical QWEEK Chronic pain #1 ea 10/07/23 pregabalin 75 mg capsule 75 mg PO TID nerve pain 3 days #9 caps 10/07/23 mirtazapine 15 mg tablet 15 mg PO QHS depression #90 TABLETS 10/13/23 calcium alginate-honey 2 X 2 bandage (MediHoney (calcium alginate-honey)) #10 ea 10/22/23 nebulizers ([employer] Nebulizer System) #1 ea 10/22/23 nebulizer and compressor #1 ea 11/18/23 benztropine 1 mg tablet 0.5 mg PO BID parkinsons 11/29/23 doxycycline monohydrate 100 mg capsule 100 mg PO BID #14 caps 12/02/23 guaifenesin 1,200 mg tablet, extended release 12 hr (Mucinex) 1,200 mg PO BID #20 tabs 12/02/23 lisinopril 20 mg tablet 20 mg PO DAILY #60 tabs 12/02/23 prednisone 20 mg tablet 20 mg PO BID #10 tabs 12/02/23 Physical Exam Narrative GENERAL: cooperative, but appears ill looking HEENT: Atraumatic; normocephalic EYES; Anicteric, Normal Conjunctiva NECK; supple, normal thyroid, RESPIRATORY: Diminished to auscultation CARDIOVASCULAR: Regular S1 S2, GI: soft, normoactive bowel sounds, : No Renal angle tenderness; EXTREMITIES: stefanie edema, no clubbing, MUSCULOSKELETAL: no muscle wasting NEURO: Awake; no lateralizing signs. SKIN: No Rash PSYCH; Flat affect Weight / BMI Weight Weight: 100 kg Body Mass Index (BMI) 35.6 ABG / Lab / Microbiology Data 12/02/23 06:52 12/02/23 06:52 Laboratory: Laboratory Results - last 24 hr 12/02/23 06:52: WBC 10.1, RBC 4.44, Hgb 11.6 L, Hct 37.2, MCV 83.8, MCH 26.1 L, MCHC 31.2 L, RDW Std Deviation 43.7, RDW Coeff of Dyana 14.3, Plt Count 307, MPV 9.5, Immature Gran % (Auto) 0.400, Neut % (Auto) 81.1 H, Lymph % (Auto) 12.1 L, [place] % (Auto) 6.3, Eos % (Auto) 0.0, Baso % (Auto) 0.1, Absolute Neuts (auto) 8.2 H, Absolute Lymphs (auto) 1.23, Nucleated RBC % 0, Sodium 134 L, Potassium 3.7, Chloride 93 L, Carbon Dioxide 38.0 H, Anion Gap 3 L, BUN 25 H, Creatinine 0.78, Estim Creat Clear Calc 88.08, Est GFR (MDRD) Af Amer 95, Est GFR (MDRD) Non-Af 79, BUN/Creatinine Ratio 31.9 H, Glucose 113 H, Calcium 9.5 Microbiology: Microbiology 11/29/23 21:24 Mucosa - Nose SARS-CoV-2, Influenza & RSV (PCR) - Final D/C Instructions Discharge Diet: No restrictions Discharge Activity: Return to Normal Activity Call your doctor if you observe: Fever of 101 or Higher, Shortness of breath, Fainting spells and Chest pain Meaningful Use Info Meaningful Use Meaningful Use Diagnoses (Choose all that apply): None applicable Ischemic Stroke Statin Dosing Therapy Reference: STATIN DOSE THERAPY REFERENCE: * Patients > 75 years receive moderate or high dose statin therapy. * Patients 75 years or YOUNGER should receive HIGH intensity statin dose unless contraindicated. You will be required to document reason for non-treatment if statin daily dose does not meet guidelines. HIGH DOSE STATIN THERAPY DAILY Atorvastatin > than or = to 40 mg Rosuvastatin > than or = to 20 mg Amlodipine + Atorvastatin > than or = to 2.5/40 mg Ezetimibe + Simvastatin 10/80 mg Simvastatin 80mg Discharge Plan Admission Admit Date/Time: 11/29/23 23:02 Attending Provider: Reyes Abernathy Primary Care Provider: Nick Lindsey Consulting Providers: Carlitos Velázquez Discharge Orders/Prescriptions Prescriptions: New lisinopril 20 mg Tablet 20 mg PO DAILY Qty: 60 0RF prednisone 20 mg tablet 20 mg PO BID Qty: 10 0RF doxycycline monohydrate 100 mg capsule 100 mg PO BID Qty: 14 0RF guaifenesin [Mucinex] 1,200 mg tablet extended release 12hr 1,200 mg PO BID Qty: 20 0RF Continued (DME) Blood Pressure Cuff Misc See Rx Instructions .Route Qty: 1 0RF Rx Instructions: Check blood pressure twice a day (DME) compress.stocking,knee,reg,lrg Misc See Rx Instructions .MEDSUPPLY Qty: 2 1RF Rx Instructions: wear daily for venous insufficiency 20-30 mmHg aripiprazole 2 mg tablet 2 mg PO DAILY Qty: 90 1RF escitalopram oxalate 20 mg tablet 20 mg PO DAILY Qty: 90 1RF (DME) compress.stocking,knee,reg,lrg Misc See Rx Instructions .ROUTE .MEDSUPPLY Qty: 2 0RF Rx Instructions: As directed (DME) nebulizers [[employer] Nebulizer System] Misc See Rx Instructions .Route Qty: 1 0RF Rx Instructions: As directed (DME) MediHoney (hetal alginate-honey) 2 X 2 bandage See Rx Instructions .Route Qty: 10 1RF Rx Instructions: As directed levetiracetam 750 mg tablet 750 mg PO BID Patient Comments: TAKE 1 TABLET BY MOUTH TWICE DAILY for seizure benztropine 1 mg tablet 0.5 mg PO BID baclofen 20 mg tablet 20 mg PO TID PRN (Reason: Spasms) pregabalin 75 mg capsule 75 mg PO TID 3 Days Qty: 9 0RF buprenorphine 20 mcg/hour patch weekly 1 patch topical QWEEK Qty: 1 0RF (DME) walker Misc See Rx Instructions .ROUTE .MEDSUPPLY Qty: 1 0RF Rx Instructions: rollator with wheels and a seat fenofibrate nanocrystallized 48 mg tablet 48 mg PO DAILY Qty: 90 3RF (DME) Ultra-Light Rollator Misc See Rx Instructions .Route Qty: 1 0RF Rx Instructions: As directed Breztri Aerosphere 160-9-4.8 mcg/actuation HFA aerosol inhaler 2 inh inhalation BID Qty: 3 3RF omeprazole 40 mg capsule,delayed release(DR/EC) 40 mg PO DAILY Qty: 90 1RF (DME) Handicap Placard See Rx Instructions .ROUTE .MEDSUPPLY Qty: 1 0RF Rx Instructions: As directed, length of time 3 years buspirone 5 mg tablet 5 mg PO TID Qty: 270 0RF mirtazapine 15 mg tablet 15 mg PO QHS Qty: 90 1RF (DME) nebulizer and compressor Device See Rx Instructions .Route Qty: 1 2RF Rx Instructions: As directed Discontinued lisinopril-hydrochlorothiazide [Zestoretic] 20-12.5 mg tablet 1 tab PO DAILY Referrals / Follow Up: Nick Lindsey MD [Primary Care Provider] - Within 2 Weeks Disposition Disposition (needs filled in before D/C Order can be placed): Home, Self Care Charges/Coding Visit Charges Inpatient E&M: 51293 Disch Hosp >30min
--- NOTE | 2023-12-02 09:41 | CASEMGMT ---
Discharge Planning Apost[facility] asked to cancel referral d/t patient returning home. Laura Zapata DC Planning Asst.
[2023-12-02 10:29] VITALS: O2SAT 92; O2SAT 94
--- NOTE | 2023-12-02 10:42 | CASEMGMT ---
Addendum entered by Vida Ch 12/02/23 11:03: Pt would like her meds delivered to the room. TC to Kun at [facility], she is aware. Pt has no cost. Addendum entered by Vida Ch 12/02/23 10:59: Pt reported she is trying to quit smoking as the physician spoke with her about this. She is aware of the nebulizer referral. TC fely Nath at [facility], she is aware pt is dc'ing today. Original Note: Pt does not require an increase in oxygen rx. Referral sent to [facility] for nebulizer at this time. Discussed safety in home oxygen and smoking. Pt verbalized understanding. Pt is ready for dc and will have portable tank brought to the hospital as well as her walker. No further needs at this time.
[2023-12-02 11:17] VITALS: O2SAT 94
[2023-12-02 11:40] VITALS: BP 133/79; PULSE 64; RESP 20; TEMP 36.7; O2SAT 96
--- NOTE | 2023-12-02 13:01 | CASEMGMT ---
Social Work SW met with pt and discussed a medical alert. Pt made aware that once she is connected with [facility] Passport services, the medical alert will be set up with them and covered under insurance. SW spoke with pt about getting a medical alert in the mean time to bridge the gap until Passport starts. Pt is agreeable to medical alert and states she is able to cover the cost and agreeable to assistance with setting this up. Pt has no preference on companies used. SW obtained pricing and information from [employer] and [employer] (pt does not have a land line and therefore cannot use [facility] medical alert). Prices and installation information obtained and provided to pt. SW offered to set up services and pt declined at this time. Pt states she would like time to consider options and talk to her sister. Written information on both programs provided to pt for followup if she wishes. CELESTINA Ellison
== END 2023-12-02 13:23 | disposition home or self-care (01) | DRG 140 ==
LOC: ED 22:54 → MS3 23:21
PROVIDERS: Emergency Provider Emergency Medicine; PCP Internal Medicine; Visit Provider Internal Medicine
DX: J44.1 Chronic obstructive pulmonary disease with (acute) exacerbation (principal); E87.1 Hypo-osmolality and hyponatremia; J96.11 Chronic respiratory failure with hypoxia; Z99.81 Dependence on supplemental oxygen; G40.909 Epilepsy, unspecified, not intractable, without status epilepticus; I10 Essential (primary) hypertension; F32.A Depression, unspecified; I89.0 Lymphedema, not elsewhere classified; E78.00 Pure hypercholesterolemia, unspecified; F41.9 Anxiety disorder, unspecified; K21.9 Gastro-esophageal reflux disease without esophagitis; G25.0 Essential tremor; Z68.36 Body mass index [BMI] 36.0-36.9, adult; E66.9 Obesity, unspecified; G89.29 Other chronic pain; Z79.899 Other long term (current) drug therapy; Z79.51 Long term (current) use of inhaled steroids; Z87.891 Personal history of nicotine dependence
CPT/HCPCS: 36415; 71045; 80048; 80076; 81001; 83735; 83880; 84100; 84484; 85025; 85610; 85730; 87040; 87631; 93005; 94640; 97162; 97166; 97530; 97533; 97802; 99285; A4216; J1940

== ENCOUNTER 2023-12-14 16:31 | Inpatient (IN) | payer MEDICAID, SELFPAY ==
[2023-12-14] VITALS (15 sets, daily range): BP systolic 115–196; BP diastolic 62–131; PULSE 80–98; RESP 22–32; TEMP 36.4–37; O2SAT 93–97; BMI 37.2; BMI 36.6
--- NOTE | 2023-12-14 16:54 | EKG12_ITS ---
Test Reason : SOB Blood Pressure : / mmHG Vent. Rate : 096 BPM Atrial Rate : 096 BPM P-R Int : 190 ms QRS Dur : 086 ms QT Int : 368 ms P-R-T Axes : 041 005 050 degrees QTc Int : 464 ms Normal sinus rhythm Low voltage QRS Possible Inferior infarct (cited on or before 29-NOV-2023) Abnormal ECG Confirmed by EVITA DUBOIS, ANTHONY ([id number]), publishing editor WILLIAM ORTA ([id number]) on 12/15/2023 2:10:48 PM Referred By: DIANA Confirmed By:ANTHONY JAMA MD
--- NOTE | 2023-12-14 16:56 | EDS_ITS ---
HPI <MELVINA Mejia - Last Filed: 12/14/23 21:09> History of Present Illness Chief Complaint: Shortness of Breath Narrative Narrative: Patient presenting today due to shortness of breath that she has had since last night. She called EMS who reports that her oxygen tubing was kinked and her house was filled with cigarette smoke. She has a history of COPD and is on 3 L O2 at baseline. She reports that since last night she has had a slight productive cough with green-colored sputum. She has noticed slight swelling to her bilateral lower extremities, she is not on any diuretics. She denies any fevers, chills, and chest pain. PE Risk Factors: Negative for Prior DVT or PE, Recent immobilization, Recent surgery or Recent travel PFS <MELVINA Mejia - Last Filed: 12/14/23 21:09> [facility] Medical History Anxiety Former smoker Depression Smoker On home oxygen therapy Pharyngitis Obesity History of GI bleed Chronic acquired lymphedema Anxiety and depression Wears dentures Restless legs Gastric reflux Stasis dermatitis COPD (chronic obstructive pulmonary disease) Epilepsy Tobacco abuse Wears glasses Arthritis Walker as ambulation aid High cholesterol Venous insufficiency of both lower extremities Chronic pain Seizures Neuropathy Vitamin D deficiency Asthma Seasonal allergies Hyperlipidemia Hypertension Home Medications ?Medication ?Instructions ?Recorded ?Last Taken ?Type walker #1 ea 10/05/20 02/24/21 Rx miscellaneous medical supply #1 ea 05/06/22 Unknown Rx (Blood Pressure Cuff) compress.stocking,knee,reg,lrg #2 ea 03/19/23 Unknown Rx fenofibrate nanocrystallized 48 mg 48 mg PO DAILY CHOLESTEROL #90 tabs 04/07/23 Unknown Rx tablet walker (Ultra-Light Rollator misc) #1 ea 04/09/23 Unknown Rx budesonide 160 mcg-glycopyr 9 2 inh inhalation BID breathing #3 06/10/23 Unknown Rx mcg-formot 4.8 mcg/actuation HFA ea inhaler (Breztri Aerosphere) omeprazole 40 mg capsule,delayed 40 mg PO DAILY GERD #90 caps 06/29/23 Unknown Rx release Handicap Placard #1 ea 07/29/23 Unknown Rx aripiprazole 2 mg tablet 2 mg PO DAILY mental health #90 08/17/23 Unknown Rx tabs buspirone 5 mg tablet 5 mg PO TID depression #270 tabs 09/01/23 Unknown Rx levetiracetam 750 mg tablet 750 mg PO BID seizures 09/16/23 Unknown History baclofen 20 mg tablet 20 mg PO TID PRN Spasms 09/25/23 Unknown History compress.stocking,knee,reg,lrg #2 ea 10/02/23 Unknown Rx escitalopram oxalate 20 mg tablet 20 mg PO DAILY DEPRESSION #90 tabs 10/02/23 Unknown Rx buprenorphine 20 mcg/hour weekly 1 patch topical QWEEK Chronic pain 10/07/23 Unknown Rx transdermal patch #1 ea pregabalin 75 mg capsule 75 mg PO TID nerve pain 3 days #9 10/07/23 Unknown Rx caps mirtazapine 15 mg tablet 15 mg PO QHS depression #90 TABLETS 10/13/23 Unknown Rx calcium alginate-honey 2 X 2 #10 ea 10/22/23 Unknown Rx bandage (MediHoney (calcium alginate-honey)) nebulizers (Altera Nebulizer #1 ea 10/22/23 Unknown Rx System) nebulizer and compressor #1 ea 11/18/23 Unknown Rx benztropine 1 mg tablet 0.5 mg PO BID parkinsons 11/29/23 Unknown History lisinopril 20 mg tablet 20 mg PO DAILY #60 tabs 12/02/23 Unknown Rx Allergy/AdvReac Type Severity Reaction Status Date / Time clindamycin Allergy Hives Verified 12/14/23 16:32 aspirin AdvReac Severe Upset Verified 12/14/23 16:32 Stomach Penicillins AdvReac Severe vomiting Verified 12/14/23 16:32 Family History Mother Breast cancer Hypertension Hyperlipemia Cancer melanoma, lyphoma ulcers Father Diabetes Myocardial infarction, Onset Age: 67 Hypertension Depression Sister Depression Hyperlipemia Surgical History Hx of colonoscopy History of tonsillectomy Hx of right knee surgery History of ankle surgery H/O: hysterectomy History of back surgery Social History household members: friend(s) Smoking Status: Current every day smoker tobacco type: cigarettes Tobacco: How many years used: 25 second hand exposure: No alcohol intake: never substance use type: does not use what type of physical activity do you participate in: walking frequency: 3-4 times per week dari/pentecostal: Islam seatbelt use: sometimes ROS <MELVINA Mejia - Last Filed: 12/14/23 21:09> ROS ED Constitutional Constitutional ED: Denies chills or fever(s) Cardiovascular Cardiovascular: Denies chest pain Respiratory/Chest Respiratory/Chest: Reports cough and dyspnea Gastrointestinal Gastrointestinal: Denies abdominal pain, nausea or vomiting Neurologic Neurologic: Denies weakness EXAM <MELVINA Mejia - Last Filed: 12/14/23 21:09> Physical Exam Const Vital Signs: 12/14/23 16:32 12/14/23 16:36 12/14/23 16:36 Temperature 97.8 F 97.6 F L Temperature Source Oral Oral Pulse Rate 98 98 Respiratory Rate 30 H 32 H Respiratory Effort Short of Breath Respiratory Depth Shallow Respiratory Pattern Tachypnea Blood Pressure 196/131 H 196/131 H Blood Pressure Mean 152 152 Pulse Ox 95 95 Oxygen Delivery Method Room Air Room Air Room Air Oxygen Flow Rate (L/min) 95 12/14/23 17:06 12/14/23 17:36 12/14/23 17:36 Temperature 98 F Temperature Source Temporal Pulse Rate 96 91 91 Respiratory Rate 23 H 22 H 22 H Respiratory Effort Respiratory Depth Respiratory Pattern Tachypnea Blood Pressure 135/75 H 135/75 H Blood Pressure Mean 95 95 Pulse Ox 95 95 Oxygen Delivery Method Nasal Cannula Nasal Cannula Oxygen Flow Rate (L/min) 5 5 12/14/23 18:00 12/14/23 19:00 12/14/23 19:46 Temperature 98.2 F Temperature Source Pulse Rate 80 93 84 Respiratory Rate 24 H 22 H 28 H Respiratory Effort Respiratory Depth Respiratory Pattern Blood Pressure 135/75 H 129/64 H 115/91 H Blood Pressure Mean 95 85 99 Pulse Ox 94 95 93 Oxygen Delivery Method Nasal Cannula Nasal Cannula Oxygen Flow Rate (L/min) 4 12/14/23 19:57 12/14/23 20:00 Temperature 98.6 F Temperature Source Oral Pulse Rate 82 89 Respiratory Rate 24 H 26 H Respiratory Effort Respiratory Depth Respiratory Pattern Blood Pressure 115/62 Blood Pressure Mean 79 Pulse Ox 97 Oxygen Delivery Method Nasal Cannula Oxygen Flow Rate (L/min) 3 Positive well nourished, well developed and no apparent distress General Appearance ED: well developed HEENT Reports normocephalic and head/scalp atraumatic Mouth ED: Yes moist mucous membranes normal Eyes PERRL and EOMs intact bilaterally Neck full ROM and supple Chest Wall inspection of chest normal Resp normal respiratory effort Resp Narrative: Slight expiratory wheezes to the bilateral lung alas. Cardio regular rate and regular rhythm GI soft to palpation, non-tender, non-distended and no masses Back/Spine normal ROM and normal to inspection Extremity normal to inspection and full ROM Extremity Narrative: Slight nonpitting bilateral lower extremity edema that is equal. Neuro oriented x3, CN's II-XII intact bilaterally, moves all extremities, no focal motor deficits and no sensory deficits noted Sensorium / Orientation: awake and alert Psych mental status grossly normal and thought process normal Skin no rashes or lesions noted and no wounds <Seng Cleveladn MD - Last Filed: 12/14/23 22:30> Physical Exam Const Vital Signs: 12/14/23 16:32 12/14/23 16:36 12/14/23 16:36 Temperature 97.8 F 97.6 F L Temperature Source Oral Oral Pulse Rate 98 98 Respiratory Rate 30 H 32 H Respiratory Effort Short of Breath Respiratory Depth Shallow Respiratory Pattern Tachypnea Blood Pressure 196/131 H 196/131 H Blood Pressure Mean 152 152 Pulse Ox 95 95 Oxygen Delivery Method Room Air Room Air Room Air Oxygen Flow Rate (L/min) 95 12/14/23 17:06 12/14/23 17:36 12/14/23 17:36 Temperature 98 F Temperature Source Temporal Pulse Rate 96 91 91 Respiratory Rate 23 H 22 H 22 H Respiratory Effort Respiratory Depth Respiratory Pattern Tachypnea Blood Pressure 135/75 H 135/75 H Blood Pressure Mean 95 95 Pulse Ox 95 95 Oxygen Delivery Method Nasal Cannula Nasal Cannula Oxygen Flow Rate (L/min) 5 5 12/14/23 18:00 12/14/23 19:00 12/14/23 19:46 Temperature 98.2 F Temperature Source Pulse Rate 80 93 84 Respiratory Rate 24 H 22 H 28 H Respiratory Effort Respiratory Depth Respiratory Pattern Blood Pressure 135/75 H 129/64 H 115/91 H Blood Pressure Mean 95 85 99 Pulse Ox 94 95 93 Oxygen Delivery Method Nasal Cannula Nasal Cannula Oxygen Flow Rate (L/min) 4 12/14/23 19:57 06/03/24 20:00 Temperature 98.6 F Temperature Source Oral Pulse Rate 82 89 Respiratory Rate 24 H 26 H Respiratory Effort Respiratory Depth Respiratory Pattern Blood Pressure 115/62 Blood Pressure Mean 79 Pulse Ox 97 Oxygen Delivery Method Nasal Cannula Oxygen Flow Rate (L/min) 3 [facility] <MELVINA Mejia - Last Filed: 12/14/23 21:09> [facility] Narrative Medical decision making narrative: Patient presenting with shortness of breath that she has had since last night. When EMS arrived her oxygen tubing was kinked and her room was filled with cigarette smoke. Usually on 3 L, here she is on 4-5 L and is saturating in the mid 90s. She has a low Wells score, low suspicion for PE. EMS did give her Solu-Medrol, DuoNeb, and albuterol breathing treatments. Labs will be obtained to rule out leukocytosis, anemia, electrolyte abnormality, and ACS. Chest x-ray will be obtained to rule out infiltrate, pleural effusion, and other cardiopulmonary abnormality. She was recently admitted to the hospital for a COPD exacerbation, she was discharged on 12/01 with prescriptions for doxycycline x 7 days and prednisone. She does have slight leukocytosis here which could be attributed to the prednisone, BMP and troponin are unremarkable. Chest x-ray negative for any acute findings. She was given additional DuoNeb and albuterol breathing treatments here. She was ambulated and desaturated to 87% just with walking around the bed on her usual 4 L O2. She felt symptomatic and short of breath. Given this, I will discuss admission with the hospitalist for COPD exacerbation. Hospitalist is agreeable with admission and she will be admitted in stable condition. Lab Data Attestation: I reviewed the patient's lab results. Lab results narrative: WBC 14.5, hemoglobin 11.4, BNP 104 Labs: Laboratory Results - last 24 hr 12/14/23 16:40 WBC 14.5 H RBC 4.42 Hgb 11.4 L Hct 38.7 MCV 87.6 MCH 25.8 L MCHC 29.5 L RDW Std Deviation 52.2 H RDW Coeff of Dyana 16.4 H Plt Count 345 MPV 10.2 Immature Gran % (Auto) 0.700 Neut % (Auto) 66.3 Lymph % (Auto) 22.8 Payne % (Auto) 8.3 Eos % (Auto) 1.6 Baso % (Auto) 0.3 Absolute Neuts (auto) 9.6 H Absolute Lymphs (auto) 3.31 Nucleated RBC % 0 Sodium 137 Potassium 3.5 Chloride 102 Carbon Dioxide 30.0 Anion Gap 5 BUN 13 Creatinine 0.77 Estim Creat Clear Calc 91.45 Est GFR (MDRD) Af Amer 97 Est GFR (MDRD) Non-Af 80 BUN/Creatinine Ratio 16.8 Glucose 108 H Calcium 9.4 Troponin I High Sens 5 B-Natriuretic Peptide 104.1 H Radiography X-Ray: Read by ED Physician Diagnostic Testing: Clinical Impression(s) from Imaging Studies Chest X-Ray 12/14/23 17:30 IMPRESSION: No definite acute or significant abnormality seen. Electronically Signed: Houston Parra MD at 17:47 EDT , EKG Initial EKG: Comments: 96 bpm, normal sinus rhythm, no ST elevation, reviewed and interpreted by attending ED physician <Seng Cleveland MD - Last Filed: 12/14/23 22:30> [facility] MDM Narrative Medical decision making narrative: Patient presenting with shortness of breath that she has had since last night. When EMS arrived her oxygen tubing was kinked and her room was filled with cigarette smoke. Usually on 3 L, here she is on 4-5 L and is saturating in the mid 90s. She has a low Wells score, low suspicion for PE. EMS did give her Solu-Medrol, DuoNeb, and albuterol breathing treatments. Labs will be obtained to rule out leukocytosis, anemia, electrolyte abnormality, and ACS. Chest x-ray will be obtained to rule out infiltrate, pleural effusion, and other cardiopulmonary abnormality. She was recently admitted to the hospital for a COPD exacerbation, she was discharged on 12/01 with prescriptions for doxycycline x 7 days and prednisone. She does have slight leukocytosis here which could be attributed to the prednisone, BMP and troponin are unremarkable. Chest x-ray negative for any acute findings. She was given additional DuoNeb and albuterol breathing treatments here. She was ambulated and desaturated to 87% just with walking around the bed on her usual 4 L O2. She felt symptomatic and short of breath. Given this, I will discuss admission with the hospitalist for COPD exacerbation. Hospitalist is agreeable with admission and she will be admitted in stable condition. Dr. Cleveland: I have personally performed a face to face assessment of the patient and have reviewed the NELLIE Note. I performed a substantive portion of the visit including all aspects of the following. My granados findings include: History is shortness of breath with history of COPD, smoker, recent admission to hospital 3 to 4 weeks ago. Exam is afebrile. Vital signs noted. Intermittent tachycardia. Diffuse wheezing bilateral lung alas. Medical Decision Making: Patient already received Solu-Medrol via EMS. Aerosolized treatment. Check labs. Check chest x-ray. Chest x-ray interpreted by myself independently shows no evidence of pneumothorax or pneumonia. I reviewed the radiology report which confirms my independent interpretation. Patient becomes hypoxic on her home oxygen even with sitting up. Continue aerosolized treatments. Admit. Other additions or changes: [None] Lab Data Labs: Laboratory Results - last 24 hr 12/14/23 16:40 WBC 14.5 H RBC 4.42 Hgb 11.4 L Hct 38.7 MCV 87.6 MCH 25.8 L MCHC 29.5 L RDW Std Deviation 52.2 H RDW Coeff of Ydana 16.4 H Plt Count 345 MPV 10.2 Immature Gran % (Auto) 0.700 Neut % (Auto) 66.3 Lymph % (Auto) 22.8 Payne % (Auto) 8.3 Eos % (Auto) 1.6 Baso % (Auto) 0.3 Absolute Neuts (auto) 9.6 H Absolute Lymphs (auto) 3.31 Nucleated RBC % 0 Sodium 137 Potassium 3.5 Chloride 102 Carbon Dioxide 30.0 Anion Gap 5 BUN 13 Creatinine 0.77 Estim Creat Clear Calc 91.45 Est GFR (MDRD) Af Amer 97 Est GFR (MDRD) Non-Af 80 BUN/Creatinine Ratio 16.8 Glucose 108 H Calcium 9.4 Troponin I High Sens 5 B-Natriuretic Peptide 104.1 H Radiography Chest X-Ray - ED: Read by ED Physician and Read by Radiologist Diagnostic Testing: Clinical Impression(s) from Imaging Studies Chest X-Ray 12/14/23 17:30 IMPRESSION: No definite acute or significant abnormality seen. Electronically Signed: Houston Parra MD at 17:47 EDT , Discharge Plan Dx/Rx/DC Orders Clinical Impression: Hypoxia, COPD exacerbation, Tobacco abuse Disposition Disposition: Acute Care Hospital [facility]
[2023-12-14] MEDS: Albuterol 2.5 MG/3 ML VIAL.NEB. INHALATION (17:05)
[2023-12-14 17:10] LABS: Absolute Lymphocyte Count 3.31 X10^3/uL (0.83-4.51); Absolute Neutrophil Count 9.6 X10^3/uL (2.0-7.7); Basophil# 0.05 X10^3/uL; Basophil% 0.3 % (0-1); Eosinophil# 0.23 X10^3/uL; Eosinophils% 1.6 % (0-5); Hematocrit 38.7 % (37-47); Hemoglobin 11.4 g/dL (12.0-15.0); Lymphocyte # 3.31 X10^3/ul (0.83-4.51); Lymphocyte % 22.8 % (19-41); Mean Corp Hgb Conc 29.5 g/dL (32-36); Mean Corpuscular Hgb 25.8 pg (27.0-32.0); Mean Corpuscular Volume 87.6 fL (81-99); Mean Platelet Vol. 10.2 fl (6.2-12.0); Monocyte% 8.3 % (0-10); NRBC Flagged by Analyzer 0 % (0-5); Neutrophil # 9.63 X10^3/uL (2.7-7.7); Neutrophil % 66.3 % (47-70); Platelet Count 345 K/mm3 (150-450); RBC Distribution Width CV 16.4 % (11.6-14.6); RBC Distribution Width SD 52.2 fl (35.1-43.9); Red Blood Count 4.42 M/mm3 (4.2-5.4); White Blood Count 14.5 K/mm3 (4.4-11.0)
[2023-12-14 17:30] LABS: BNP,B-Type NATRIURETIC PEPTIDE 104.1 pg/mL (0-100)
--- NOTE | 2023-12-14 17:30 | RAD_ITS ---
STUDY: X-RAY CHEST REASON FOR EXAM: Female, 63 years old. SOB TECHNIQUE: Frontal and lateral views of the chest. COMPARISON: 11/29/2023. FINDINGS: The lungs are clear and expanded. There is no demonstrated pleural abnormality. Normal size heart. Normal mediastinum and shyla. Normal visualized pulmonary arteries. There is atherosclerotic tortuosity of the aortic arch and descending thoracic aorta. There are diffuse degenerative changes of the visualized thoracic spine. Normal visualized ribs, clavicles, and shoulders. There is no demonstrated abnormality of the visualized soft tissue structures of the upper abdomen. RAD/Chest PA and Lateral IMPRESSION: No definite acute or significant abnormality seen. Electronically Signed: Houston Parra MD at 17:47 EDT ,
[2023-12-14 17:35] LABS: Anion Gap 5 (5-15); BUN 13 mg/dL (7-18); BUN/Creat Ratio 16.8 RATIO (10-20); Calcium,Total 9.4 mg/dL (8.5-10.1); Chloride 102 mmol/L (98-107); Creatinine, Serum 0.77 mg/dL (0.55-1.02); EST Glomerular Filtration Rate 80 mL/min (>60); Est Glom Filt Rate - Afr Amer 97 mL/min (>60); Estimated Creatinine Clearance 91.45 ml/min; Glucose 108 mg/dL (74-106); Potassium 3.5 mmol/L (3.5-5.1); Sodium Level 137 mmol/L (136-145); Troponin-I HS 5 pg/mL (3.0-54.0)
[2023-12-14] MEDS: Ipratropium/Albuterol Sulfate 3 ML AMPUL.NEB INHALATION (19:56)
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
--- NOTE | 2023-12-14 20:55 | US_ITS ---
STUDY: VENOUS DOPPLER ULTRASOUND - BILATERAL LOWER EXTREMITIES REASON FOR EXAM: Female, 63 years old. SWELLING BILAT TECHNIQUE: Ultrasound evaluation of the deep vein system to include méndez-scale imaging and compression was performed. Méndez-scale imaging and Doppler sonographic evaluation, including duplex spectral analysis and qualitative color flow sonography, was performed. COMPARISON: None. FINDINGS: Exam limited by cellulitis, patient size, and edema of both calves. RIGHT LEG Common Femoral Vein: Normal compression, spontaneity and augmentation. Normal color Doppler. Common Femoral Vein/Greater Saphenous Junction: Normal compression, spontaneity and augmentation. Normal color Doppler. Femoral Proximal: Normal compression, spontaneity and augmentation. Normal color Doppler. Femoral Middle: Normal compression, spontaneity and augmentation. Normal color Doppler. Femoral Distal: Normal compression, spontaneity and augmentation. Normal color Doppler. Popliteal Vein: Normal compression, spontaneity and augmentation. Normal color Doppler. Posterior Tibial Vein: Not adequately visualized. Peroneal Vein: Not adequately visualized. LEFT LEG Common Femoral Vein: Normal compression, spontaneity and augmentation. Normal color Doppler. Common Femoral Vein/Greater Saphenous Junction: Normal compression, spontaneity and augmentation. Normal color Doppler. Deep Femoral Vein: Normal compression, spontaneity and augmentation. Normal color Doppler. Femoral Proximal: Normal compression, spontaneity and augmentation. Normal color Doppler. Femoral Middle: Normal compression, spontaneity and augmentation. Normal color Doppler. Femoral Distal: Normal compression, spontaneity and augmentation. Normal color Doppler. Popliteal Vein: Normal compression, spontaneity and augmentation. Normal color Doppler. Posterior Tibial Vein: Not adequately visualized. Peroneal Vein: Not adequately visualized. US/Venous Duplex Imag/Yinka Extrem IMPRESSION: Limited as above. No evidence for DVT. Electronically Signed: Houston Parra MD at 22:13 EDT ,
[2023-12-15] VITALS (10 sets, daily range): BP systolic 118–149; BP diastolic 52–86; PULSE 73–86; RESP 16–20; TEMP 36.3–36.8; O2SAT 94–97; BMI 36.6
[2023-12-15] MEDS: Enoxaparin 100 MG/ML Syringe SC ×3 (00:03→21:31)
[2023-12-15] MEDS: Mirtazapine 15 MG Tablet PO ×2 (00:03→22:28)
[2023-12-15] MEDS: busPIRone 5 MG Tablet PO ×4 (00:03→21:31)
[2023-12-15] MEDS: levETIRAcetam 750 MG Tablet PO ×3 (00:03→21:31)
[2023-12-15] MEDS: MethylPREDNISolone 125 MG/2 ML Vial IV (00:04)
[2023-12-15] MEDS: Pregabalin 75 MG Capsule PO ×4 (00:07→21:26)
[2023-12-15] MEDS: Benztropine Mesylate 0.5 MG TABLET PO ×3 (00:12→21:32)
[2023-12-15] MEDS: 0.9% Normal Saline (1000mL) 1,000 ML 50 ML IV (00:15)
[2023-12-15] MEDS: Baclofen 10 MG Tablet 20 MG PO ×3 (06:15→22:28)
[2023-12-15 06:20] LABS: Absolute Lymphocyte Count 0.74 X10^3/uL (0.83-4.51); Absolute Neutrophil Count 8.6 X10^3/uL (2.0-7.7); Basophil# 0.01 X10^3/uL; Basophil% 0.1 % (0-1); Hematocrit 37.7 % (37-47); Hemoglobin 11.4 g/dL (12.0-15.0); Lymphocyte # 0.74 X10^3/ul (0.83-4.51); Lymphocyte % 7.8 % (19-41); Mean Corp Hgb Conc 30.2 g/dL (32-36); Mean Corpuscular Hgb 26.4 pg (27.0-32.0); Mean Corpuscular Volume 87.3 fL (81-99); Mean Platelet Vol. 10.4 fl (6.2-12.0); Monocyte# 0.09 X10^3/uL; NRBC Flagged by Analyzer 0 % (0-5); Neutrophil # 8.56 X10^3/uL (2.7-7.7); Neutrophil % 90.4 % (47-70); Platelet Count 280 K/mm3 (150-450); RBC Distribution Width CV 15.8 % (11.6-14.6); RBC Distribution Width SD 49.6 fl (35.1-43.9); Red Blood Count 4.32 M/mm3 (4.2-5.4); White Blood Count 9.5 K/mm3 (4.4-11.0)
--- NOTE | 2023-12-15 07:20 | PCM.PN.HOSP ---
Reason for Visit Reason for Visit: Diagnoses Obesity, unspecified (12/14/23) Chronic obstructive pulmonary disease with (acute) exacerbation (12/14/23) Chronic respiratory failure with hypoxia (12/14/23) Cellulitis of right lower limb (12/14/23) Hypoxemia (12/14/23) Tobacco use (12/14/23) Subjective Subjective Breathing better. Complains of LE edema. Objective Data Objective Data Vital Signs: Vital Signs Temp Pulse Resp BP Pulse Ox O2 Del Method O2 Flow Rate 36.8 C 76 16 144/85 H 97 Nasal Cannula 3 12/15/23 06:02 12/15/23 06:02 12/15/23 06:02 12/15/23 06:02 12/15/23 06:02 12/15/23 06:02 12/15/23 06:02 Oxygen Flow Rate (L/min) 3 Oxygen Delivery Method Nasal Cannula Weight: 103.1 kg Body Mass Index (BMI) 36.6 Intake & Output: Intake and Output for Last 24 Hours 12/13/23 12/14/23 12/15/23 23:59 23:59 23:59 Intake Total 0 / 200 400 / 400 Balance 0 / 200 400 / 400 Lab / Micro Data 12/15/23 05:54 12/15/23 05:54 Labs: Laboratory Results - last 24 hr 12/14/23 16:40: WBC 14.5 H, RBC 4.42, Hgb 11.4 L, Hct 38.7, MCV 87.6, MCH 25.8 L, MCHC 29.5 L, RDW Std Deviation 52.2 H, RDW Coeff of Dyana 16.4 H, Plt Count 345, MPV 10.2, Immature Gran % (Auto) 0.700, Neut % (Auto) 66.3, Lymph % (Auto) 22.8, Gladwin % (Auto) 8.3, Eos % (Auto) 1.6, Baso % (Auto) 0.3, Absolute Neuts (auto) 9.6 H, Absolute Lymphs (auto) 3.31, Nucleated RBC % 0, Sodium 137, Potassium 3.5, Chloride 102, Carbon Dioxide 30.0, Anion Gap 5, BUN 13, Creatinine 0.77, Estim Creat Clear Calc 91.45, Est GFR (MDRD) Af Amer 97, Est GFR (MDRD) Non-Af 80, BUN/Creatinine Ratio 16.8, Glucose 108 H, Calcium 9.4, Troponin I High Sens 5, B-Natriuretic Peptide 104.1 H 12/15/23 05:54: WBC 9.5, RBC 4.32, Hgb 11.4 L, Hct 37.7, MCV 87.3, MCH 26.4 L, MCHC 30.2 L, RDW Std Deviation 49.6 H, RDW Coeff of Dyana 15.8 H, Plt Count 280, MPV 10.4, Immature Gran % (Auto) 0.700, Neut % (Auto) 90.4 H, Lymph % (Auto) 7.8 L, Gladwin % (Auto) 1.0, Eos % (Auto) 0.0, Baso % (Auto) 0.1, Absolute Neuts (auto) 8.6 H, Absolute Lymphs (auto) 0.74 L, Nucleated RBC % 0 Radiography Diagnostic Testing: Radiology Impression Chest X-Ray 12/14/23 17:30 IMPRESSION: No definite acute or significant abnormality seen. Electronically Signed: Houston Parra MD at 17:47 EDT , Venous Duplex 12/14/23 20:55 IMPRESSION: Limited as above. No evidence for DVT. Electronically Signed: Houston Parra MD at 22:13 EDT , Physical Exam Const alert and no apparent distress Constitutional Narrative: up in chair. HEENT head/scalp atraumatic and moist oral mucous membranes Resp normal respiratory effort Resp Narrative: diminished BS bilaterally. Cardio regular rate, regular rhythm, S1 normal heart sound and S2 normal heart sound GI normal to inspection, nondistended, normoactive bowel sounds, soft to palpation, non-tender and non-distended Extremity General Extremity: edema bilateral lower extremity Details: moderate Neuro Sensorium / Orientation: awake and alert Psych affect normal Assessment & Plan Assessment/Plan (1) COPD exacerbation: (2) Tobacco abuse: (3) Hypoxia: (4) Chronic hypoxemic respiratory failure: (5) Cellulitis of right leg: (6) Obesity (BMI 30-39.9): PLAN: Plan AECOPD continue methylpred, BDs, wean oxygen as tolerated (home oxygen appears to be 3 L/m) CXR unremarkable for infiltrate tobacco cessation advised Chronic LE edema: current weight is 103 kg, weight was down to 96.3 in September. Duplex on the was negative. Had been taken HCTZ due to hyponatremia. Start furosemide 40 mg BID. Hypothyroidism TSH 0.16 FT4 WNL. No changes to therapy at this time. continue levothyroxine for now. Chronic conditions Obesity class II: complicates care and recovery. Weight loss advised. Essential hypertension - continue lisinopril. seizure disorder: continue levetiracetam VTE prophylaxis - enoxaparin Charges/Coding Visit Charges Inpatient E&M: 54613 Subs Hosp L2
[2023-12-15 07:31] LABS: ALB/GLOB Ratio 0.7 RATIO (0.9-2.4); AST(SGOT) 11 U/L (15-37); Alanine Aminotransfer ALT/SGPT 15 U/L (13-56); Albumin, Serum 2.5 g/dL (3.2-5.0); Alkaline Phosphatase 58 U/L (45-117); Anion Gap 5 (5-15); BUN 11 mg/dL (7-18); BUN/Creat Ratio 19.6 RATIO (10-20); Calcium,Total 9.1 mg/dL (8.5-10.1); Chloride 104 mmol/L (98-107); Creatinine, Serum 0.56 mg/dL (0.55-1.02); EST Glomerular Filtration Rate 116 mL/min (>60); Est Glom Filt Rate - Afr Amer 140 mL/min (>60); Globulin 3.4 g/dL (2.2-4.2); Glucose 140 mg/dL (74-106); Phosphorus 2.7 mg/dL (2.5-4.9); Potassium 3.9 mmol/L (3.5-5.1); Protein, Total 5.9 g/dL (6.4-8.2); Sodium Level 137 mmol/L (136-145); Thyroid Stim Hormone (TSH) 0.16 uIU/mL (0.358-3.74)
[2023-12-15] MEDS: Ipratropium/Albuterol Sulfate 3 ML AMPUL.NEB INHALATION ×3 (07:40→20:36)
[2023-12-15] MEDS: Budesonide Respules 0.5 MG/2 ML AMPUL.NEB. INHALATION ×2 (07:40→20:36)
[2023-12-15 08:05] LABS: T4 Free Direct 1.25 ng/dL (0.76-1.46)
[2023-12-15] MEDS: 0.9% Saline Lock 10 ML Syringe IV ×2 (09:37→21:26)
[2023-12-15] MEDS: Pantoprazole Sodium 40 MG Tablet PO (09:37)
[2023-12-15] MEDS: ARIPiprazole 2 MG Tablet PO (09:37)
[2023-12-15] MEDS: MethylPREDNISolone 125 MG/2 ML Vial 60 MG IV ×2 (09:37→21:27)
[2023-12-15] MEDS: Furosemide 40 MG Tablet PO ×2 (09:38→17:53)
[2023-12-15] MEDS: Lisinopril 20 MG Tablet PO (09:38)
[2023-12-15] MEDS: Escitalopram Oxalate 20 MG Tablet PO (09:38)
[2023-12-15] MEDS: Fenofibrate 48 MG Tablet PO (09:38)
--- NOTE | 2023-12-15 11:05 | CASEMGMT ---
Social Work SW spoke w/Celena at [facility]. She states that they faxed a form to the physician's office that needs signed, and once they have this then [employer] can start setting up services. MYAH called Dr. Lindsey's office, spoke w/nurse. She states the form was already faxed back to [facility] on 11/29, she will refax it today. WILIAN Bravo
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
[2023-12-16 04:15] VITALS: BP 126/63; PULSE 78; RESP 18; TEMP 36.9; O2SAT 98
[2023-12-16] MEDS: Pregabalin 75 MG Capsule PO ×2 (05:34→13:44)
[2023-12-16] MEDS: busPIRone 5 MG Tablet PO ×2 (05:34→13:44)
[2023-12-16 06:00] VITALS: BMI 36.4
[2023-12-16] MEDS: Ipratropium/Albuterol Sulfate 3 ML AMPUL.NEB INHALATION ×2 (07:49→13:32)
[2023-12-16] MEDS: Budesonide Respules 0.5 MG/2 ML AMPUL.NEB. INHALATION (07:49)
[2023-12-16 07:50] VITALS: PULSE 72; RESP 18; O2SAT 100
[2023-12-16 08:10] VITALS: BP 158/94; PULSE 65; RESP 18; TEMP 36.4; O2SAT 97
[2023-12-16] MEDS: Furosemide 40 MG Tablet PO (08:13)
[2023-12-16] MEDS: Lisinopril 20 MG Tablet PO (08:13)
--- NOTE | 2023-12-16 08:40 | PN.HOSP_ITS ---
Reason for Visit Reason for Visit: Diagnoses Obesity, unspecified (12/14/23) Chronic obstructive pulmonary disease with (acute) exacerbation (12/14/23) Chronic respiratory failure with hypoxia (12/14/23) Cellulitis of right lower limb (12/14/23) Hypoxemia (12/14/23) Tobacco use (12/14/23) Subjective Subjective Breathing better. Decreased LE edema. Ready to go home. Objective Data Objective Data Vital Signs: Vital Signs Temp Pulse Resp BP Pulse Ox O2 Del Method O2 Flow Rate 36.4 C L 65 18 158/94 H 97 Nasal Cannula 3 12/16/23 08:10 12/16/23 08:10 12/16/23 08:10 12/16/23 08:10 12/16/23 08:10 12/16/23 08:10 12/16/23 08:10 Oxygen Flow Rate (L/min) 3 Oxygen Delivery Method Nasal Cannula Weight: 102.5 kg Body Mass Index (BMI) 36.4 Intake & Output: Intake and Output for Last 24 Hours 12/14/23 12/15/23 12/16/23 23:59 23:59 23:59 Intake Total 0 / 200 1087.5 / 1087.5 200 / 200 Balance 0 / 200 1087.5 / 1087.5 200 / 200 Lab / Micro Data 12/15/23 05:54 12/16/23 09:33 Physical Exam Const alert and no apparent distress Resp Resp Narrative: improved aeration. wheezes bilaterally. Cardio regular rate and regular rhythm Extremity Extremity Narrative: decreased edema. Assessment & Plan Assessment/Plan (1) COPD exacerbation: (2) Tobacco abuse: (3) Hypoxia: (4) Chronic hypoxemic respiratory failure: (5) Cellulitis of right leg: (6) Obesity (BMI 30-39.9): PLAN: Plan AECOPD * improving. change methylprednisone to prednisone. * wean oxygen as tolerated (home oxygen appears to be 3 L/m) * CXR unremarkable for infiltrate * tobacco cessation advised Chronic LE edema: * improving * current weight is 103 kg, weight was down to 96.3 in September. Duplex on the 3rd was negative. Had been taken HCTZ due to hyponatremia. * dc with furosmide 40/d Hypothyroidism * TSH 0.16 * FT4 WNL. No changes to therapy at this time. * continue levothyroxine for now. Chronic conditions * Obesity class II: complicates care and recovery. Weight loss advised. * Essential hypertension - continue lisinopril. * seizure disorder: continue levetiracetam VTE prophylaxis - enoxaparin
[2023-12-16] MEDS: MethylPREDNISolone 125 MG/2 ML Vial 60 MG IV (09:58)
[2023-12-16] MEDS: 0.9% Saline Lock 10 ML Syringe IV (09:58)
[2023-12-16] MEDS: Baclofen 10 MG Tablet 20 MG PO (09:59)
[2023-12-16] MEDS: Escitalopram Oxalate 20 MG Tablet PO (09:59)
[2023-12-16] MEDS: Fenofibrate 48 MG Tablet PO (09:59)
[2023-12-16] MEDS: Benztropine Mesylate 0.5 MG TABLET PO (09:59)
[2023-12-16] MEDS: levETIRAcetam 750 MG Tablet PO (09:59)
[2023-12-16] MEDS: Pantoprazole Sodium 40 MG Tablet PO (09:59)
[2023-12-16] MEDS: ARIPiprazole 2 MG Tablet PO (09:59)
[2023-12-16] MEDS: Enoxaparin 100 MG/ML Syringe SC (09:59)
[2023-12-16 10:08] LABS: Anion Gap 4 (5-15); BUN 22 mg/dL (7-18); BUN/Creat Ratio 24.5 RATIO (10-20); Calcium,Total 9.3 mg/dL (8.5-10.1); Chloride 98 mmol/L (98-107); EST Glomerular Filtration Rate 67 mL/min (>60); Est Glom Filt Rate - Afr Amer 81 mL/min (>60); Estimated Creatinine Clearance 77.35 ml/min; Glucose 210 mg/dL (74-106); Potassium 3.4 mmol/L (3.5-5.1); Sodium Level 138 mmol/L (136-145)
--- NOTE | 2023-12-16 12:53 | CASEMGMT ---
RN CM spoke with Dr. Velázquez and made him aware pt has a nebulizer machine at home but would like to know at DC what medication and frequency she should use.
--- NOTE | 2023-12-16 13:16 | PCM.DC.SUM ---
Providers Date of Admission: 12/14/23 Primary Care Physician: Dr. Nick Lindsey MD Reason For Visit: AE COPD IN THE SETTING OF ONGOING TOBACCO USE Diagnosis Discharge Diagnosis (1) COPD exacerbation: Status: Chronic Code(s): J44.1 - Chronic obstructive pulmonary disease with (acute) exacerbation (2) Tobacco abuse: Status: Acute Code(s): Z72.0 - Tobacco use (3) Hypoxia: Status: Acute Code(s): R09.02 - Hypoxemia (4) Chronic hypoxemic respiratory failure: Status: Chronic Code(s): J96.11 - Chronic respiratory failure with hypoxia (5) Cellulitis of right leg: Status: Acute Code(s): L03.115 - Cellulitis of right lower limb (6) Obesity (BMI 30-39.9): Status: Acute Code(s): E66.9 - Obesity, unspecified Plan AECOPD improving. change methylprednisone to prednisone. wean oxygen as tolerated (home oxygen appears to be 3 L/m) CXR unremarkable for infiltrate tobacco cessation advised Chronic LE edema: improving current weight is 103 kg, weight was down to 96.3 in September. Duplex on the was negative. Had been taken HCTZ due to hyponatremia. dc with furosmide 40/d Hypothyroidism TSH 0.16 FT4 WNL. No changes to therapy at this time. continue levothyroxine for now. Chronic conditions Obesity class II: complicates care and recovery. Weight loss advised. Essential hypertension - continue lisinopril. seizure disorder: continue levetiracetam VTE prophylaxis - enoxaparin Medications at Discharge Home Medications walker #1 ea 10/05/20 miscellaneous medical supply (Blood Pressure Cuff) #1 ea 05/06/22 compress.stocking,knee,reg,lrg #2 ea 03/19/23 fenofibrate nanocrystallized 48 mg tablet 48 mg PO DAILY CHOLESTEROL #90 tabs 04/07/23 walker (Ultra-Light Rollator misc) #1 ea 04/09/23 budesonide 160 mcg-glycopyr 9 mcg-formot 4.8 mcg/actuation HFA inhaler (Breztri Aerosphere) 2 inh inhalation BID breathing #3 ea 06/10/23 omeprazole 40 mg capsule,delayed release 40 mg PO DAILY GERD #90 caps 12/18/23 Handicap Placard #1 ea 07/29/23 aripiprazole 2 mg tablet 2 mg PO DAILY mental health #90 tabs 08/17/23 buspirone 5 mg tablet 5 mg PO TID depression #270 tabs 09/01/23 levetiracetam 750 mg tablet 750 mg PO BID seizures 09/16/23 baclofen 20 mg tablet 20 mg PO TID PRN Spasms 09/25/23 compress.stocking,knee,reg,lrg #2 ea 10/02/23 escitalopram oxalate 20 mg tablet 20 mg PO DAILY DEPRESSION #90 tabs 10/02/23 buprenorphine 20 mcg/hour weekly transdermal patch 1 patch topical QWEEK Chronic pain #1 ea 10/07/23 pregabalin 75 mg capsule 75 mg PO TID nerve pain 3 days #9 caps 10/07/23 mirtazapine 15 mg tablet 15 mg PO QHS depression #90 TABLETS 10/13/23 calcium alginate-honey 2 X 2 bandage (MediHoney (calcium alginate-honey)) #10 ea 10/22/23 nebulizers (Ocutronicsa Nebulizer System) #1 ea 10/22/23 nebulizer and compressor #1 ea 11/18/23 benztropine 1 mg tablet 0.5 mg PO BID parkinsons 11/29/23 lisinopril 20 mg tablet 20 mg PO DAILY #60 tabs 12/02/23 furosemide 40 mg tablet 40 mg PO DAILY #30 tabs 12/16/23 prednisone 20 mg tablet 40 mg (2 x 20 mg) PO DAILY #10 tabs 12/16/23 Hospital Course Operations None Procedures None Summary of Care Provided Minutes Spent on Discharge: 32 Hospital Course: Presents with shortness of breath. She was diagnosed with a COPD exacerbation and started on bronchodilators and methylprednisolone. Additionally, noted that her weight is gone up roughly 10 kg since September. Patient had been on hydrochlorothiazide but that was discontinued due to hyponatremia. She has not been taking any diuretics since then. So I did start her on 40 mg of Lasix twice daily here in the hospital. Patient did note some improvement of her lower extremity edema. Chest x-ray did not show any pulmonary vascular congestion so did not have any clear CHF exacerbation but due to her lower extremity edema, I feel that she would benefit from furosemide moving forward. As her weight has gone up. Would recommend though furosemide to 40 mg daily at home. Patient is home O2 dependent is on oxygen 3 L/min. Oxygen testing reviewed and patient is ambulatory in home and in the community and requires home oxygen with portability. And she states that she also has an extremely long oxygen tubing. Discussed with her that the longer that to making the less oxygen that she would be receiving through the nasal cannula. She says she has a core that is entirely too long and 1 that is too short to get her even to the bathroom. I did discuss with case management to see if they can get her something that would not be too long but also be able to long enough to be able to get around in her house with oxygen safely. Weight / BMI Weight Weight: 102.5 kg Body Mass Index (BMI) 36.4 ABG / Lab / Microbiology Data 12/15/23 05:54 12/16/23 09:33 Laboratory: Laboratory Results - last 24 hr 12/16/23 09:33: Sodium 138, Potassium 3.4 L, Chloride 98, Carbon Dioxide 36.0 H, Anion Gap 4 L, BUN 22 H, Creatinine 0.90, Estim Creat Clear Calc 77.35, Est GFR (MDRD) Af Amer 81, Est GFR (MDRD) Non-Af 67, BUN/Creatinine Ratio 24.5 H, Glucose 210 H, Calcium 9.3 D/C Instructions Discharge Diet: No restrictions Meaningful Use Info Meaningful Use Meaningful Use Diagnoses (Choose all that apply): None applicable Ischemic Stroke Statin Dosing Therapy Reference: STATIN DOSE THERAPY REFERENCE: * Patients > 75 years receive moderate or high dose statin therapy. * Patients 75 years or YOUNGER should receive HIGH intensity statin dose unless contraindicated. You will be required to document reason for non-treatment if statin daily dose does not meet guidelines. HIGH DOSE STATIN THERAPY DAILY Atorvastatin > than or = to 40 mg Rosuvastatin > than or = to 20 mg Amlodipine + Atorvastatin > than or = to 2.5/40 mg Ezetimibe + Simvastatin 10/80 mg Simvastatin 80mg Discharge Plan Admission Admit Date/Time: 12/14/23 20:22 Primary Reason for Your Visit: COPD exacerbation Attending Provider: Carlitos Velázquez Primary Care Provider: Nick Lindsey Consulting Providers: Reyes Rutherford Discharge Orders/Prescriptions Prescriptions: New furosemide 40 mg Tablet 40 mg PO DAILY Qty: 30 0RF prednisone 20 mg tablet 40 mg PO DAILY Qty: 10 0RF Continued (DME) Blood Pressure Cuff Misc See Rx Instructions .Route Qty: 1 0RF Rx Instructions: Check blood pressure twice a day (DME) compress.stocking,knee,reg,lrg Misc See Rx Instructions .MEDSUPPLY Qty: 2 1RF Rx Instructions: wear daily for venous insufficiency 20-30 mmHg aripiprazole 2 mg tablet 2 mg PO DAILY Qty: 90 1RF escitalopram oxalate 20 mg tablet 20 mg PO DAILY Qty: 90 1RF (DME) compress.stocking,knee,reg,lrg Misc See Rx Instructions .ROUTE .MEDSUPPLY Qty: 2 0RF Rx Instructions: As directed ([facility]) nebulizers [Altera Nebulizer System] Misc See Rx Instructions .Route Qty: 1 0RF Rx Instructions: As directed ([facility]) MediHoney (hetal alginate-honey) 2 X 2 bandage See Rx Instructions .Route Qty: 10 1RF Rx Instructions: As directed levetiracetam 750 mg tablet 750 mg PO BID Patient Comments: TAKE 1 TABLET BY MOUTH TWICE DAILY for seizure benztropine 1 mg tablet 0.5 mg PO BID lisinopril 20 mg Tablet 20 mg PO DAILY Qty: 60 0RF baclofen 20 mg tablet 20 mg PO TID PRN (Reason: Spasms) pregabalin 75 mg capsule 75 mg PO TID 3 Days Qty: 9 0RF buprenorphine 20 mcg/hour patch weekly 1 patch topical QWEEK Qty: 1 0RF (DME) [facility] See Rx Instructions .ROUTE .MEDSUPPLY Qty: 1 0RF Rx Instructions: rollator with wheels and a seat fenofibrate nanocrystallized 48 mg tablet 48 mg PO DAILY Qty: 90 3RF (DME) Ultra-Light Rollator Misc See Rx Instructions .Route Qty: 1 0RF Rx Instructions: As directed Breztri Aerosphere 160-9-4.8 mcg/actuation HFA aerosol inhaler 2 inh inhalation BID Qty: 3 3RF omeprazole 40 mg capsule,delayed release(DR/EC) 40 mg PO DAILY Qty: 90 1RF (DME) Handicap Placard See Rx Instructions .ROUTE .MEDSUPPLY Qty: 1 0RF Rx Instructions: As directed, length of time 3 years buspirone 5 mg tablet 5 mg PO TID Qty: 270 0RF mirtazapine 15 mg tablet 15 mg PO QHS Qty: 90 1RF (DME) nebulizer and compressor Device See Rx Instructions .Route Qty: 1 2RF Rx Instructions: As directed Referrals / Follow Up: [facility] [Provider Group] - 02/22/24 2:45 pm Nick Lindsey MD [Primary Care Provider] - Within 2 Weeks Disposition Disposition (needs filled in before D/C Order can be placed): Home Health Service Charges/Coding Visit Charges Inpatient E&M: 97432 Disch Hosp >30min
--- NOTE | 2023-12-16 13:31 | CASEMGMT ---
Addendum entered by Dary Temple 12/16/23 15:49: 2:15 PM: Pt made aware of appt w/Daisha Lam NP on 12/23. Pt states she has nebulizer solution @ home that she got from [employer], but since then the rx's were all tx'd to [facility] in [place]. She is not sure what the name of the nebulized solution is or how often she can take it. Per Prasad @ [facility], pt's rx for nebulizer is Duoneb 2.5 mg/3 ml- 1 vial Q 4hr PRN SOB or wheezing. Dr Velázquez made aware and states it is okay for pt to take this once she returns home. Pt made aware and voices appreciation. Rx's for furosemide and prednisone were sent to [facility] in [place]. Pt states she would like to get them from [facility] retail pharmacy before leaving the hospital as she does not have anyone available to pick her rx's up @ [facility]. Call placed to [facility] retail and they were made aware. They will deliver meds to pt's room once ready. Pt placed call to insurance and arranged for transportation home. She states they will be here b/w 3:30 and 5:30 PM, they will text her when they are here, and that they state they will leave if she is not at the door w/in 5 min. RN, Neela, made aware. ELY Auguste @ at [facility] was also made aware that pt does have a nebulizer @ home. Addendum entered by Gardenia Fine 12/16/23 13:49: Call placed to Daisha Lam's office for earlier appt. Appt scheduled for 12/23 at 9:45 am. Faxed DC summary to Kalyani GRAVES at [facility] and called and left a message pt DC today and DC summary faxed. Dr. Velázquez called and stated she needs a shorter cord for O2. Called [facility] and they will visit pt tomorrow and set her up with a shorter cord. Original Note: Pham from [facility] made aware DC today, TARYN will start tomorrow. Added TARYN to DC order.
[2023-12-16 13:32] VITALS: PULSE 74; RESP 18
[2023-12-16] MEDS: Potassium Chloride Oral Tablet 20 MEQ 40 MEQ PO (13:44)
[2023-12-16 13:55] VITALS: BP 140/68; PULSE 69; RESP 18; TEMP 36.5; O2SAT 95
--- NOTE | 2023-12-16 15:22 | PHA.DC.MR.R ---
Pharmacy [place] Med Reconciliation Pharmacy Service has performed discharge medication reconciliation for this patient. Patient has been on both medications previously. Did not psychosocial rehabilitation counselor. The patient's discharge medication list was reviewed for discrepancies and discrepancies were resolved. Medications at Discharge Home Medications walker #1 ea 10/05/20 miscellaneous medical supply (Blood Pressure Cuff) #1 ea 05/06/22 compress.stocking,knee,reg,lrg #2 ea 03/19/23 fenofibrate nanocrystallized 48 mg tablet 48 mg PO DAILY CHOLESTEROL #90 tabs 04/07/23 walker (Ultra-Light Rollator misc) #1 ea 04/09/23 budesonide 160 mcg-glycopyr 9 mcg-formot 4.8 mcg/actuation HFA inhaler (Breztri Aerosphere) 2 inh inhalation BID breathing #3 ea 06/10/23 omeprazole 40 mg capsule,delayed release 40 mg PO DAILY GERD #90 caps 06/29/23 Handicap Placard #1 ea 07/29/23 aripiprazole 2 mg tablet 2 mg PO DAILY mental health #90 tabs 08/17/23 buspirone 5 mg tablet 5 mg PO TID depression #270 tabs 09/01/23 levetiracetam 750 mg tablet 750 mg PO BID seizures 09/16/23 baclofen 20 mg tablet 20 mg PO TID PRN Spasms 09/25/23 compress.stocking,knee,reg,lrg #2 ea 10/02/23 escitalopram oxalate 20 mg tablet 20 mg PO DAILY DEPRESSION #90 tabs 10/02/23 buprenorphine 20 mcg/hour weekly transdermal patch 1 patch topical QWEEK Chronic pain #1 ea 10/07/23 pregabalin 75 mg capsule 75 mg PO TID nerve pain 3 days #9 caps 10/07/23 mirtazapine 15 mg tablet 15 mg PO QHS depression #90 TABLETS 10/13/23 calcium alginate-honey 2 X 2 bandage (MediHoney (calcium alginate-honey)) #10 ea 10/22/23 nebulizers (StyleTecha Nebulizer System) #1 ea 10/22/23 nebulizer and compressor #1 ea 11/18/23 benztropine 1 mg tablet 0.5 mg PO BID parkinsons 11/29/23 lisinopril 20 mg tablet 20 mg PO DAILY #60 tabs 12/02/23 furosemide 40 mg tablet 40 mg PO DAILY #30 tabs 12/16/23 prednisone 20 mg tablet 40 mg (2 x 20 mg) PO DAILY #10 tabs 12/16/23
== END 2023-12-16 15:29 | disposition home health service (06) | DRG 140 ==
LOC: ED 21:09 → MS3 21:16
PROVIDERS: Physician Assistant; Admitting Provider Internal Medicine; Emergency Provider Emergency Medicine; PCP Internal Medicine
DX: J44.1 Chronic obstructive pulmonary disease with (acute) exacerbation (principal); E87.1 Hypo-osmolality and hyponatremia; J96.11 Chronic respiratory failure with hypoxia; Z99.81 Dependence on supplemental oxygen; G40.909 Epilepsy, unspecified, not intractable, without status epilepticus; E66.01 Morbid (severe) obesity due to excess calories; I10 Essential (primary) hypertension; E03.9 Hypothyroidism, unspecified; F32.A Depression, unspecified; G25.81 Restless legs syndrome; E78.00 Pure hypercholesterolemia, unspecified; M19.90 Unspecified osteoarthritis, unspecified site; I87.2 Venous insufficiency (chronic) (peripheral); K21.9 Gastro-esophageal reflux disease without esophagitis; F41.9 Anxiety disorder, unspecified; F17.210 Nicotine dependence, cigarettes, uncomplicated; M54.9 Dorsalgia, unspecified; L03.115 Cellulitis of right lower limb; Z68.37 Body mass index [BMI] 37.0-37.9, adult; Z79.899 Other long term (current) drug therapy; Z79.51 Long term (current) use of inhaled steroids; Z90.710 Acquired absence of both cervix and uterus; G89.29 Other chronic pain
CPT/HCPCS: 36415; 71046; 80048; 80053; 83735; 83880; 84100; 84439; 84443; 84481; 84484; 85025; 93005; 93970; 94640; 94668; 97161; 97166; 99252; 99285; J7030; A4216; G0463

== ENCOUNTER 2023-12-30 14:34 | Observation (INO) | payer MEDICAID, SELFPAY ==
[2023-12-30] VITALS (8 sets, daily range): BP systolic 107–126; BP diastolic 65–79; PULSE 73–90; RESP 12–20; TEMP 36.5–36.8; O2SAT 91–99; BMI 36.6; BMI 35.2
--- NOTE | 2023-12-30 15:36 | EKG12_ITS ---
Test Reason : DIZZINESS Blood Pressure : / mmHG Vent. Rate : 079 BPM Atrial Rate : 079 BPM P-R Int : 212 ms QRS Dur : 084 ms QT Int : 394 ms P-R-T Axes : 026 -08 039 degrees QTc Int : 451 ms Sinus rhythm with 1st degree A-V block Low voltage QRS Inferior infarct (cited on or before 29-NOV-2023) Abnormal ECG Confirmed by EVITA DUBOIS, ANTHONY ([id number]), assignment editor WILLIAM ORTA ([id number]) on 12/31/2023 10:04:16 AM Referred By: Confirmed By:ANTHONY JAMA MD
--- NOTE | 2023-12-30 15:40 | RAD_ITS ---
STUDY: X-RAY CHEST REASON FOR EXAM: Female, 63 years old. Stroke TECHNIQUE: AP portable COMPARISON: December 14, 2023 FINDINGS: Minimal subsegmental atelectasis or scarring at both lung bases.. There is no demonstrated pleural abnormality. Normal size heart. Normal mediastinum and shyla. Normal visualized pulmonary arteries. Mildly calcified aortic arch and descending thoracic aorta. Normal visualized thoracic spine. Normal visualized ribs, clavicles, and shoulders. There is no demonstrated abnormality of the visualized soft tissue structures of the upper abdomen. RAD/Chest 1 View (Portable) IMPRESSION: Minimal subsegmental atelectasis or scarring in both lower lobes. Electronically Signed: Demetrius Bruno MD at 16:48 EDT ,
--- NOTE | 2023-12-30 15:45 | EDS_ITS ---
HPI History of Present Illness Chief Complaint: Dizziness Narrative Narrative: 63-year-old female past medical history of chronic hypoxemic respiratory failure, COPD, wears oxygen all the time, states that over the last 2 weeks she is felt more fatigued and tired and is having problems with low blood pressure. She usually has hypertension and takes medication, but she has multiple home health aides and nursing visits and they have noticed that her blood pressure has been low in the 80s over the last few days to weeks. She was told not to take her antihypertensive medications any longer. She denies any fevers or chills, no nausea or vomiting, no increased shortness of breath or cough above her baseline. No dysuria or hematuria. She states she is sleeping more and feels very fatigued. [facility] Medical History Obesity (BMI 30-39.9) Tobacco abuse Chronic hypoxemic respiratory failure Cellulitis of right leg Anxiety Former smoker Depression Smoker On home oxygen therapy Pharyngitis Obesity History of GI bleed Chronic acquired lymphedema Anxiety and depression Wears dentures Restless legs Gastric reflux Stasis dermatitis COPD (chronic obstructive pulmonary disease) Epilepsy Tobacco abuse Wears glasses Arthritis Walker as ambulation aid High cholesterol Venous insufficiency of both lower extremities Chronic pain Seizures Neuropathy Vitamin D deficiency Asthma Seasonal allergies Hyperlipidemia Hypertension Home Medications ?Medication ?Instructions ?Recorded ?Last Taken ?Type walker #1 ea 10/05/20 02/24/21 Rx miscellaneous medical supply #1 ea 05/06/22 Unknown Rx (Blood Pressure Cuff) compress.stocking,knee,reg,lrg #2 ea 03/19/23 Unknown Rx fenofibrate nanocrystallized 48 mg 48 mg PO DAILY CHOLESTEROL #90 tabs 04/07/23 Unknown Rx tablet walker (Ultra-Light Rollator misc) #1 ea 04/09/23 Unknown Rx budesonide 160 mcg-glycopyr 9 2 inh inhalation BID breathing #3 06/10/23 Unknown Rx mcg-formot 4.8 mcg/actuation HFA ea inhaler (Breztri Aerosphere) Handicap Placard #1 ea 07/29/23 Unknown Rx aripiprazole 2 mg tablet 2 mg PO DAILY mental health #90 08/17/23 Unknown Rx tabs baclofen 20 mg tablet 20 mg PO TID PRN Spasms 09/25/23 Unknown History compress.stocking,knee,reg,lrg #2 ea 10/02/23 Unknown Rx escitalopram oxalate 20 mg tablet 20 mg PO DAILY DEPRESSION #90 tabs 10/02/23 Unknown Rx buprenorphine 20 mcg/hour weekly 1 patch topical QWEEK Chronic pain 10/07/23 Unknown Rx transdermal patch #1 ea pregabalin 75 mg capsule 75 mg PO TID nerve pain 3 days #9 10/07/23 Unknown Rx caps mirtazapine 15 mg tablet 15 mg PO QHS depression #90 TABLETS 10/13/23 Unknown Rx calcium alginate-honey 2 X 2 #10 ea 10/22/23 Unknown Rx bandage (MediHoney (calcium alginate-honey)) nebulizers (Fast Societya Nebulizer #1 ea 10/22/23 Unknown Rx System) nebulizer and compressor #1 ea 11/18/23 Unknown Rx benztropine 1 mg tablet 0.5 mg PO BID parkinsons 11/29/23 Unknown History lisinopril 20 mg tablet 20 mg PO DAILY #60 tabs 12/02/23 Unknown Rx furosemide 40 mg tablet 40 mg PO DAILY #30 tabs 12/16/23 Unknown Rx prednisone 20 mg tablet 40 mg (2 x 20 mg) PO DAILY #10 tabs 12/16/23 Unknown Rx blood pressure monitor #1 ea 12/23/23 Unknown Rx buspirone 5 mg tablet 5 mg PO TID depression #270 tabs 12/28/23 Unknown Rx levetiracetam 750 mg tablet 750 mg PO BID seizures #180 tabs 12/28/23 Unknown Rx omeprazole 40 mg capsule,delayed 40 mg PO DAILY GERD #90 caps 12/28/23 Unknown Rx release Allergy/AdvReac Type Severity Reaction Status Date / Time clindamycin Allergy Hives Verified 12/30/23 14:52 aspirin AdvReac Severe Upset Verified 12/30/23 14:52 Stomach Penicillins AdvReac Severe vomiting Verified 12/30/23 14:52 Family History Mother Breast cancer Hypertension Hyperlipemia Cancer melanoma, lyphoma ulcers Father Diabetes Myocardial infarction, Onset Age: 67 Hypertension Depression Sister Depression Hyperlipemia Surgical History Hx of colonoscopy History of tonsillectomy Hx of right knee surgery History of ankle surgery H/O: hysterectomy History of back surgery Social History household members: friend(s) Smoking Status: Current every day smoker tobacco type: cigarettes Tobacco: How many years used: 25 second hand exposure: No alcohol intake: never substance use type: does not use what type of physical activity do you participate in: walking frequency: 3-4 times per week dari/yarsanism: Episcopal seatbelt use: sometimes ROS ROS ED ROS Narrative Constitutional: No fever, no chills. Increased fatigue and sleeping. Reported low blood pressure readings in the 80s. HEENT: No sore throat. No neck pain. No loss of vision. No rhinorrhea. Cardiovascular: No chest pain. No palpitations. No pedal edema. Respiratory: No cough, no shortness of breath above baseline. Abdominal: No abdominal pain. No nausea. No vomiting. Genitourinary: No dysuria. No hematuria. Musculoskeletal: No myalgias. No arthralgias. Neurologic: No headaches. No dizziness. No lightheadedness. Skin: No rash. No change in color. Psychiatric: No depression. No anxiety. EXAM Physical Exam Narrative Exam Narrative: Afebrile. Vital signs noted. Sleeping upon entering room, easily awakened and startled. HEENT: Normocephalic. Atraumatic. PERRL, EOMI. Neck soft and supple. No point tenderness or step off. Cardiovascular: Regular rate and rhythm. No murmurs, rubs, or gallops appreciated. Respiratory: Mild tachypnea. Diminished breath sounds bilaterally. Gastrointestinal: Abdomen soft, nontender, with normoactive bowel sounds. No rebound or guarding. Neurological: Awake. Alert. Nonfocal, nonlateralizing. Skin: No rash. Normal color. No pallor. Musculoskeletal: Trace bilateral pedal edema. Full range of motion extremities. Const Vital Signs: 12/30/23 14:44 12/30/23 15:34 12/30/23 16:00 Temperature 98.2 F Temperature Source Oral Pulse Rate 90 82 80 Respiratory Rate 20 H 19 H 14 Blood Pressure 119/70 107/65 109/69 Blood Pressure Mean 86 79 82 Pulse Ox 91 94 96 Oxygen Delivery Method Nasal Cannula Oxygen Flow Rate (L/min) 3 12/30/23 17:17 Temperature Temperature Source Pulse Rate 79 Respiratory Rate 13 Blood Pressure 111/72 Blood Pressure Mean 85 Pulse Ox 98 Oxygen Delivery Method Oxygen Flow Rate (L/min) MDM MDM MDM Narrative Medical decision making narrative: In the differential diagnosis is sepsis versus CO2 retention versus dehydration versus intravascular volume depletion. Her current blood pressure ranges from 107 systolic to initially 119. She is satting at 94% on 3 L nasal cannula oxygen which he usually wears. Nursing protocol laboratories and chest x-ray were obtained. I will add a venous blood gas to look for CO2 retention and a lactic acid as she has had intermittent hypotension. EKG was obtained and interpreted by myself independently as normal sinus rhythm with first-degree AV block at 79 bpm without ectopy or acute ST changes. No STEMI. In review of her laboratory work, she has normal white count of 9.9, hemoglobin stable at 11.2, platelet count 219. INR is normal at 1.0 with a PTT 27.6. Carbon dioxide is elevated at 37. Review of her VBG does show her compensated with a pH of 7.36 and pCO2 of 60 with a pO2 of 46. Her lactic acid is elevated at 2.4. Her urinalysis is negative for infection. Chest x-ray 1 view interpreted by myself independently shows no evidence of pneumonia. I reviewed the radiology report which confirms my independent interpretation, no pneumothorax. She has bilateral atelectasis versus scarring. At this point in time, although her lactic acid is elevated, she was bolused 1 L normal saline, but she is not meeting other SIRS criteria. I do not think she is septic, but I do feel that she merits observation for her transient hypotension and her elevated lactic acid. Patient will be discussed with Dr. Mireles. Disposition is assigned observation. She is in stable condition. Lab Data Attestation: I reviewed the patient's lab results. Labs: Laboratory Results - last 24 hr 12/30/23 12/30/23 12/30/23 14:55 15:57 17:37 WBC 9.9 RBC 4.23 Hgb 11.2 L Hct 38.3 MCV 90.5 MCH 26.5 L MCHC 29.2 L RDW Std Deviation 51.6 H RDW Coeff of Dyana 15.7 H Plt Count 219 MPV 10.8 Immature Gran % (Auto) 0.500 Neut % (Auto) 84.4 H Lymph % (Auto) 10.0 L [place] % (Auto) 3.7 Eos % (Auto) 1.0 Baso % (Auto) 0.4 Absolute Neuts (auto) 8.3 H Absolute Lymphs (auto) 0.99 Nucleated RBC % 0 PT 13.0 INR 1.0 APTT 27.6 Sodium 141 Potassium 3.5 Chloride 100 Carbon Dioxide 37.0 H Anion Gap 4 L BUN 33 H Creatinine 1.00 Estim Creat Clear Calc 69.72 Est GFR (MDRD) Af Amer 72 Est GFR (MDRD) Non-Af 59 L BUN/Creatinine Ratio 33.0 H Glucose 163 H Lactic Acid 2.4 H* Calcium 9.4 Urine Color Yellow Urine Clarity Clear Urine pH 6.0 Ur Specific Watson 1.015 Urine Protein Negative Urine Glucose (UA) Normal Urine Ketones Negative Urine Occult Blood Negative Urine Nitrite Negative Urine Bilirubin Negative Urine Urobilinogen Normal Ur Leukocyte Esterase Negative Urine RBC 0 SEEN Urine WBC 0 SEEN Ur Squamous Epith Cells 0 SEEN Urine Bacteria 0 SEEN Urine Mucus 0 SEEN ABG Data ABG results: ABG 12/30/23 16:14 Specimen Type EDNA Sample Site Not entered VBG pH 7.37 VBG pO2 46 H VBG HCO3 35 H VBG Total CO2 37 H VBG O2 Sat (Calc) 79 H VBG Base Excess 10 H POC Mix VBG pCO2 Pt Tmp 60.9 H O2 Delivery Device Cannula Radiography Chest X-Ray - ED: 1 View and Read by Radiologist Diagnostic Testing: Clinical Impression(s) from Imaging Studies Chest X-Ray 12/30/23 15:40 IMPRESSION: Minimal subsegmental atelectasis or scarring in both lower lobes. Electronically Signed: Demetrius Bruno MD at 16:48 EDT , Management Discussion w/another healthcare provider: Hospitalist Discharge Plan Dx/Rx/DC Orders Clinical Impression: Lactic acidosis, Fatigue, Transient hypotension Disposition Disposition: Acute Care [facility]
[2023-12-30 16:05] LABS: Absolute Lymphocyte Count 0.99 X10^3/uL (0.83-4.51); Absolute Neutrophil Count 8.3 X10^3/uL (2.0-7.7); Anion Gap 4 (5-15); BUN 33 mg/dL (7-18); Basophil# 0.04 X10^3/uL; Basophil% 0.4 % (0-1); Calcium,Total 9.4 mg/dL (8.5-10.1); Chloride 100 mmol/L (98-107); EST Glomerular Filtration Rate 59 mL/min (>60); Est Glom Filt Rate - Afr Amer 72 mL/min (>60); Estimated Creatinine Clearance 69.72 ml/min; Glucose 163 mg/dL (74-106); Hematocrit 38.3 % (37-47); Hemoglobin 11.2 g/dL (12.0-15.0); Lymphocyte # 0.99 X10^3/ul (0.83-4.51); Mean Corp Hgb Conc 29.2 g/dL (32-36); Mean Corpuscular Hgb 26.5 pg (27.0-32.0); Mean Corpuscular Volume 90.5 fL (81-99); Mean Platelet Vol. 10.8 fl (6.2-12.0); Monocyte# 0.37 X10^3/uL; Monocyte% 3.7 % (0-10); NRBC Flagged by Analyzer 0 % (0-5); Neutrophil # 8.32 X10^3/uL (2.7-7.7); Neutrophil % 84.4 % (47-70); Platelet Count 219 K/mm3 (150-450); Potassium 3.5 mmol/L (3.5-5.1); RBC Distribution Width CV 15.7 % (11.6-14.6); RBC Distribution Width SD 51.6 fl (35.1-43.9); Red Blood Count 4.23 M/mm3 (4.2-5.4); Sodium Level 141 mmol/L (136-145); White Blood Count 9.9 K/mm3 (4.4-11.0)
[2023-12-30 16:06] LABS: Partial Thromboplast Time 27.6 Seconds (24.1-36.2)
[2023-12-30 16:18] LABS: Blood Gas Specimen Type VEN; O2 Delivery Device Cannula; SITE Not entered; VBG BASE EXCESS 10 mmol/L (-1.0-3.5); VBG Bicarbonate 35 mmol/L (22-26); VBG PO2 46 mmHg (25-40); VBG SO2 79 % (50-70); VBG TCO2 37 mmol/L (23-33); VBG pCO2 60.9 mmHg (41-51); VBG pH 7.37 (7.32-7.42)
[2023-12-30 17:03] LABS: Lactic Acid 2.4 mmol/L (0.4-1.9)
[2023-12-30] MEDS: 0.9% Normal Saline (1000mL) 1,000 ML 999 ML IV (17:23)
[2023-12-30 17:40] LABS: Bacteria 0 SEEN /hpf (None Seen); Mucous, Urine 0 SEEN /hpf (<or=2+); Red Blood Cells-Urine 0 SEEN /hpf (0-5); Squamous Epithelial Cells - UA 0 SEEN /hpf (5-10); White Blood Cells 0 SEEN /hpf (0-5)
[2023-12-30 17:48] LABS: Color, Urine Yellow (Yellow); Glucose, Dipstick Normal (Normal); Ketone-Dipstick Negative (Negative); Leukocyte Esterase-Dipstick Negative /ul (Negative); Nitrite-Dipstick Negative (Negative); Occult Blood-Urine Negative /ul (Negative); Protein-Dipstick Negative (Negative); Specific Gravity, Urine 1.015 (1.002-1.030); Urine Bilirubin Dipstick Negative (Negative); Urine Clarity Clear (Clear); Urine Urobilinogen Normal (Normal)
--- NOTE | 2023-12-30 18:28 | NURSING ---
PCU OBS [facility]A TRANSIENT HYPOTENSION, LACTIC ACIDOSIS, COPD
--- NOTE | 2023-12-30 19:28 | PCM.HP.STD ---
HPI - General General Date of Admission: 12/30/23 Date of Service: 12/30/23 Chief Complaint: Was found intermittent hypotension for last 10 days. Intermittent dizzines and weakness s for 10 days HPI Narrative CASI APARICIO, is a 63 F who has home health aide coming to check and was found hypotensive for last 2 days. She stated her blood pressure was 80/50 and was taking days. She stopped taking antihypertensive medication because of low blood pressure but blood pressure is still low. She was also having intermittent symptoms of dizziness, fatigue and feeling like she fell down but she was careful and did not had fall or syncope. She has chronic shortness of breath because of COPD and on home oxygen but denies any more than her usual shortness of breath. She is on oxygen 02/02. She denies any history of heart disease but is stated she was started on water pill for leg swelling and leg swelling is better EMS also noted blood pressure low and orthostatic. EMS vitals were blood pressure 98/76, heart rate 80-145/min, A-fib with RVR. In ED blood pressure improved, 119/70-1 /. Heart rate in 70s. Patient on 3 L of oxygen pulse ox 99%. Twelve-lead EKG shows sinus arrhythmia 81 beats per 1, QRS 109 6-second, QTc 430 ms, low voltage QRS complexes with LAD. EMS EKG was also sinus rhythm with first-degree AV block. Previous EKG on December 14, 2023 was normal sinus rhythm. Patient is further admitted [facility] Medical History Obesity (BMI 30-39.9) Tobacco abuse Chronic hypoxemic respiratory failure Cellulitis of right leg Anxiety Former smoker Depression Smoker On home oxygen therapy Pharyngitis Obesity History of GI bleed Chronic acquired lymphedema Anxiety and depression Wears dentures Restless legs Gastric reflux Stasis dermatitis COPD (chronic obstructive pulmonary disease) Epilepsy Tobacco abuse Wears glasses Arthritis Walker as ambulation aid High cholesterol Venous insufficiency of both lower extremities Chronic pain Seizures Neuropathy Vitamin D deficiency Asthma Seasonal allergies Hyperlipidemia Hypertension Home Medications ?Medication ?Instructions ?Recorded ?Last Taken ?Type walker #1 ea 10/05/20 02/24/21 Rx miscellaneous medical supply #1 ea 05/06/22 Unknown Rx (Blood Pressure Cuff) compress.stocking,knee,reg,lrg #2 ea 03/19/23 Unknown Rx fenofibrate nanocrystallized 48 mg 48 mg PO DAILY CHOLESTEROL #90 tabs 04/07/23 Unknown Rx tablet walker (Ultra-Light Rollator misc) #1 ea 04/09/23 Unknown Rx budesonide 160 mcg-glycopyr 9 2 inh inhalation BID breathing #3 06/10/23 Unknown Rx mcg-formot 4.8 mcg/actuation HFA ea inhaler (Breztri Aerosphere) Handicap Placard #1 ea 07/29/23 Unknown Rx aripiprazole 2 mg tablet 2 mg PO DAILY mental health #90 08/17/23 Unknown Rx tabs baclofen 20 mg tablet 20 mg PO TID PRN Spasms 09/25/23 Unknown History compress.stocking,knee,reg,lrg #2 ea 10/02/23 Unknown Rx escitalopram oxalate 20 mg tablet 20 mg PO DAILY DEPRESSION #90 tabs 10/02/23 Unknown Rx buprenorphine 20 mcg/hour weekly 1 patch topical QWEEK Chronic pain 10/07/23 Unknown Rx transdermal patch #1 ea pregabalin 75 mg capsule 75 mg PO TID nerve pain 3 days #9 10/07/23 Unknown Rx caps mirtazapine 15 mg tablet 15 mg PO QHS depression #90 TABLETS 10/13/23 Unknown Rx calcium alginate-honey 2 X 2 #10 ea 10/22/23 Unknown Rx bandage (MediHoney (calcium alginate-honey)) nebulizers (Altera Nebulizer #1 ea 10/22/23 Unknown Rx System) nebulizer and compressor #1 ea 11/18/23 Unknown Rx benztropine 1 mg tablet 0.5 mg PO BID parkinsons 11/29/23 Unknown History lisinopril 20 mg tablet 20 mg PO DAILY #60 tabs 12/02/23 Unknown Rx furosemide 40 mg tablet 40 mg PO DAILY #30 tabs 12/16/23 Unknown Rx blood pressure monitor #1 ea 12/23/23 Unknown Rx buspirone 5 mg tablet 5 mg PO TID depression #270 tabs 12/28/23 Unknown Rx levetiracetam 750 mg tablet 750 mg PO BID seizures #180 tabs 12/28/23 Unknown Rx omeprazole 40 mg capsule,delayed 40 mg PO DAILY GERD #90 caps 12/28/23 Unknown Rx release Allergy/AdvReac Type Severity Reaction Status Date / Time clindamycin Allergy Hives Verified 12/30/23 14:52 aspirin AdvReac Severe Upset Verified 12/30/23 14:52 Stomach Penicillins AdvReac Severe vomiting Verified 12/30/23 14:52 Family History Mother Breast cancer Hypertension Hyperlipemia Cancer melanoma, lyphoma ulcers Father Diabetes Myocardial infarction, Onset Age: 67 Hypertension Depression Sister Depression Hyperlipemia Surgical History Hx of colonoscopy History of tonsillectomy Hx of right knee surgery History of ankle surgery H/O: hysterectomy History of back surgery Social History household members: friend(s) Smoking Status: Current every day smoker tobacco type: cigarettes Tobacco: How many years used: 25 second hand exposure: No alcohol intake: never substance use type: does not use what type of physical activity do you participate in: walking frequency: 3-4 times per week adri/anabaptism: Druze seatbelt use: sometimes ROS ROS Narrative Constitutional: Reports fatigue and weakness. No fever. No fall HEENT: Reports systems reviewed and no addt'l complaints, except as documented Respiratory/Chest: History of COPD chronic shortness of breath on oxygen. No acute or excessive shortness of breath or respiratory distress or wheezing. CVS: No chest pain pressure or tightness. Denies chronic heart disease Gastrointestinal: Denies coffee ground emesis, hematemesis or vomiting Genitourinary: Denies burning urination or new urinary tract symptoms Musculoskeletal: Chronic arthritis. Denies acute joint pain or limited range of motion. No acute injury Neurologic: Denies seizure-like symptoms. Dizziness lightheadedness skin: No ulcer. No rash Endocrinology: Reports systems reviewed and no addt'l complaints, except as documented Hematologic/Lymphatic: Reports systems reviewed and no addt'l complaints, except as documented Rest 14 ROS are negative except as mentioned in HPI Vital Signs Vital Signs Vital Signs: 12/30/23 14:44 12/30/23 15:34 12/30/23 15:36 Temperature 98.2 F Temperature Source Oral Pulse Rate 90 82 Respiratory Rate 20 H 19 H Blood Pressure 119/70 107/65 Blood Pressure Mean 86 79 Blood Pressure Source Blood Pressure Position Blood Pressure Location Pulse Ox 91 94 Oxygen Delivery Method Nasal Cannula Nasal Cannula Oxygen Flow Rate (L/min) 3 3 12/30/23 16:00 12/30/23 17:17 12/30/23 18:00 Temperature Temperature Source Pulse Rate 80 79 74 Respiratory Rate 14 13 13 Blood Pressure 109/69 111/72 123/79 H Blood Pressure Mean 82 85 93 Blood Pressure Source Blood Pressure Position Blood Pressure Location Pulse Ox 96 98 97 Oxygen Delivery Method Nasal Cannula Oxygen Flow Rate (L/min) 3 12/30/23 18:33 12/30/23 18:39 12/30/23 19:07 Temperature 97.7 F L 97.8 F Temperature Source Temporal Pulse Rate 73 74 73 Respiratory Rate 12 12 18 Blood Pressure 126/74 H 126/74 H 125/74 H Blood Pressure Mean 91 91 91 Blood Pressure Source Monitor Blood Pressure Position Semi-Fowlers Blood Pressure Location Left Arm Pulse Ox 98 97 99 Oxygen Delivery Method Nasal Cannula Nasal Cannula Oxygen Flow Rate (L/min) 3 3 Weight Weight: 226 lb 10.163 oz Body Mass Index (BMI) 36.6 Physical Exam Narrative General: Alert, Oriented x3, Cooperative HEENT: Atraumatic, PERRLA, EOMI, Normocephalic Oral: No Gingival or Mucosal Lesions/ Ulcerations Neck: Supple, No JVD, Negative Carotid Bruits Chest wall/Lungs: Air entry diminished in bilateral lung bases. Expiratory phase prolonged. On O2. No crepitation/rhonchi Cardiovascular: Regular rate, Regular Rhythm, Normal S1, Normal S2, No M/G/R Abdomen: Bowel Sounds Present, Soft, Non Tender, Non-Distended. Fat abdomen : No dysuria. No renal angle tenderness. No suprapubic tenderness. Extremities: mild pitting edema, Capillary Refill Less than 3 Seconds Skin: No rashes, No breakdown Musculoskeletal: No Tenderness to Palpation of Joints or Extremities. Degenerative arthritis of hips and knees joint Neurological: Cranial nerves II-XII grossly intact, DTR 2+/4. No acute focal neurological deficit. Psych/Mental Status: Flat affect. Results Lab / Micro Data 12/30/23 14:55 12/30/23 14:55 Labs: Laboratory Results - last 24 hr 12/30/23 14:55: WBC 9.9, RBC 4.23, Hgb 11.2 L, Hct 38.3, MCV 90.5, MCH 26.5 L, MCHC 29.2 L, RDW Std Deviation 51.6 H, RDW Coeff of Dyana 15.7 H, Plt Count 219, MPV 10.8, Immature Gran % (Auto) 0.500, Neut % (Auto) 84.4 H, Lymph % (Auto) 10.0 L, [place] % (Auto) 3.7, Eos % (Auto) 1.0, Baso % (Auto) 0.4, Absolute Neuts (auto) 8.3 H, Absolute Lymphs (auto) 0.99, Nucleated RBC % 0, PT 13.0, INR 1.0, APTT 27.6, Sodium 141, Potassium 3.5, Chloride 100, Carbon Dioxide 37.0 H, Anion Gap 4 L, BUN 33 H, Creatinine 1.00, Estim Creat Clear Calc 69.72, Est GFR (MDRD) Af Amer 72, Est GFR (MDRD) Non-Af 59 L, BUN/Creatinine Ratio 33.0 H, Glucose 163 H, Calcium 9.4 12/30/23 15:57: Lactic Acid 2.4 H* 12/30/23 17:37: Urine Color Yellow, Urine Clarity Clear, Urine pH 6.0, Ur Specific [place] 1.015, Urine Protein Negative, Urine Glucose (UA) Normal, Urine Ketones Negative, Urine Occult Blood Negative, Urine Nitrite Negative, Urine Bilirubin Negative, Urine Urobilinogen Normal, Ur Leukocyte Esterase Negative, Urine RBC 0 SEEN, Urine WBC 0 SEEN, Ur Squamous Epith Cells 0 SEEN, Urine Bacteria 0 SEEN, Urine Mucus 0 SEEN Micro: Microbiology 12/30/23 Unknown Mucosa - Nose SARS-CoV-2, Influenza & RSV (PCR) - Final ABG Data ABG results: ABG 12/30/23 16:14 Specimen Type EDNA Sample Site Not entered VBG pH 7.37 VBG pO2 46 H VBG HCO3 35 H VBG Total CO2 37 H VBG O2 Sat (Calc) 79 H VBG Base Excess 10 H POC Mix VBG pCO2 Pt Tmp 60.9 H O2 Delivery Device Cannula Imaging Radiology Impression Chest X-Ray 12/30/23 15:40 IMPRESSION: Minimal subsegmental atelectasis or scarring in both lower lobes. Electronically Signed: Demetrius Bruno MD at 16:48 EDT Reading Location ID and State: [facility] / [place] Tel , Service support , Assessment & Plan Assessment/Plan (1) Transient hypotension: PLAN: Plan This is a 63-year-old female being admitted for near syncope symptoms associated with hypotension. 1. Symptomatic transient hypotension at home, resolved with history of hypotension: Patient is being admitted in PCU for monitoring. Heart rate and blood pressure are in normal range after IV fluid bolus resuscitation. Patient denies any prior cardiac disease or chest pain. Continue holding antihypertensive medications including lisinopril. Lactic acid was elevated probably due to hypoperfusion but patient does not have signs and symptoms of infection or fever therefore sepsis ruled out. SARS-CoV-2 influenza and RSV PCR are negative. 2. History of COPD: No acute exacerbation. Chest x-ray individually reviewed and shows minimal subsegmental atelectasis or scarring. Continue DuoNeb as needed and and home medication, Breztri triple therapy. Patient was last admitted for COPD exacerbation on December 16, 2023 3. Anxiety and depression: Patient on multiple antianxiety/antidepressant and antipsychotic medications. She is on buspirone, Abilify, escitalopram and mirtazapine. Dose is decreased with holding parameters for hypotension 4. Chronic pain with history of cervical neck sprain, spondylosis of lumbosacral region without myelopathy and degenerative arthritis: Patient on multiple pain medications including buprenorphine weekly patch, baclofen. Medications continued with holding parameters. Buprenorphine discontinued 5. Chronic lower extremity edema. Patient on furosemide 40 mg daily currently held because of hypotension. Leg advised but repeat 6. Hypothyroidism: During previous admission TSH and free T4 within normal limit. Continue levothyroxine 7. Obesity grade 3: BMI 36.6 kg/m?. Complicates care and recovery. Weight loss advised. Dial Maker consult. 8. Seizure disorder: continue levetiracetam . Home medication reconciliation done Living will/advanced directive/end of life care: Patient does have living will or advanced directive. She has designated power of environmental attorney for health and her sister, Mrs. Krysta Green is POA. She lives in [place]. After discussion of benefits/risks procedures involved with full code, DNR CC arrest and DNR CC, the patient said she is DNR CC arrest and does not want intubation or other life resuscitation measures Patient doesn't want artificial life support including intubation, tube feed, ventilator and/chest compression, central venous catheter, vasopressor and DC shock if needed Total time spent in [id number] encounter in discussion of advanced directive 17 minutes. Microbiology Past 72 Hours. 12/30/23 Unknown Mucosa - Nose SARS-CoV-2, Influenza & RSV (PCR) - Final Laboratory Results 12/30/23 14:55: WBC 9.9, RBC 4.23, Hgb 11.2 L, Hct 38.3, MCV 90.5, MCH 26.5 L, MCHC 29.2 L, RDW Std Deviation 51.6 H, RDW Coeff of Dyana 15.7 H, Plt Count 219, MPV 10.8, Immature Gran % (Auto) 0.500, Neut % (Auto) 84.4 H, Lymph % (Auto) 10.0 L, Gaston % (Auto) 3.7, Eos % (Auto) 1.0, Baso % (Auto) 0.4, Absolute Neuts (auto) 8.3 H, Absolute Lymphs (auto) 0.99, Nucleated RBC % 0, PT 13.0, INR 1.0, APTT 27.6, Sodium 141, Potassium 3.5, Chloride 100, Carbon Dioxide 37.0 H, Anion Gap 4 L, BUN 33 H, Creatinine 1.00, Estim Creat Clear Calc 69.72, Est GFR (MDRD) Af Amer 72, Est GFR (MDRD) Non-Af 59 L, BUN/Creatinine Ratio 33.0 H, Glucose 163 H, Calcium 9.4 12/30/23 15:57: Lactic Acid 2.4 H* 12/30/23 16:14: Specimen Type EDNA, Sample Site Not entered, VBG pH 7.37, VBG pO2 46 H, VBG HCO3 35 H, VBG Total CO2 37 H, VBG O2 Sat (Calc) 79 H, VBG Base Excess 10 H, POC Mix VBG pCO2 Pt Tmp 60.9 H, O2 Delivery Device Cannula 12/30/23 17:37: Urine Color Yellow, Urine Clarity Clear, Urine pH 6.0, Ur Specific [place] 1.015, Urine Protein Negative, Urine Glucose (UA) Normal, Urine Ketones Negative, Urine Occult Blood Negative, Urine Nitrite Negative, Urine Bilirubin Negative, Urine Urobilinogen Normal, Ur Leukocyte Esterase Negative, Urine RBC 0 SEEN, Urine WBC 0 SEEN, Ur Squamous Epith Cells 0 SEEN, Urine Bacteria 0 SEEN, Urine Mucus 0 SEEN Clinical Impression(s) from Imaging Studies Chest X-Ray 12/30/23 15:40 IMPRESSION: Minimal subsegmental atelectasis or scarring in both lower lobes. Charges/Coding Visit Charges Inpatient E&M: 13478 Init Hosp L3 Procedures Hospitalists Procedures: 15466 Advncd Care Plan 30 Min
[2023-12-30 20:42] LABS: Reflex Lactate? Y
[2023-12-30] MEDS: Lactated Ringers 1,000 ML 75 ML IV (21:01)
[2023-12-30] MEDS: Benztropine Mesylate 0.5 MG TABLET PO (21:03)
[2023-12-30] MEDS: busPIRone 5 MG Tablet PO (21:03)
[2023-12-30] MEDS: levETIRAcetam 750 MG Tablet PO (21:03)
[2023-12-30] MEDS: Pregabalin 75 MG Capsule PO (21:03)
[2023-12-30] MEDS: Mirtazapine 15 MG Tablet 7.5 MG PO (21:03)
[2023-12-30 21:42] LABS: Lactic Acid 1.3 mmol/L (0.4-1.9)
[2023-12-30] MEDS: Baclofen 10 MG Tablet PO (23:17)
[2023-12-30] MEDS: Heparin Injection (Vial) 5,000 UNIT/ML VIAL 5000 UNIT SC (23:19)
[2023-12-31] VITALS (10 sets, daily range): BP systolic 92–111; BP diastolic 50–65; PULSE 72–85; RESP 16–20; TEMP 36.2–36.7; O2SAT 93–100
[2023-12-31] MEDS: Ipratropium/Albuterol Sulfate 3 ML AMPUL.NEB INHALATION ×4 (00:40→23:25)
[2023-12-31] MEDS: Pregabalin 75 MG Capsule PO ×3 (05:48→21:27)
[2023-12-31] MEDS: Budesonide Respules 0.5 MG/2 ML AMPUL.NEB. INHALATION ×2 (06:47→19:48)
[2023-12-31 07:24] LABS: Absolute Lymphocyte Count 1.64 X10^3/uL (0.83-4.51); Absolute Neutrophil Count 6.6 X10^3/uL (2.0-7.7); Basophil# 0.04 X10^3/uL; Basophil% 0.4 % (0-1); Eosinophil# 0.14 X10^3/uL; Eosinophils% 1.5 % (0-5); Hematocrit 35.4 % (37-47); Hemoglobin 10.5 g/dL (12.0-15.0); Lymphocyte # 1.64 X10^3/ul (0.83-4.51); Lymphocyte % 17.6 % (19-41); Mean Corp Hgb Conc 29.7 g/dL (32-36); Mean Corpuscular Hgb 26.7 pg (27.0-32.0); Mean Corpuscular Volume 90.1 fL (81-99); Mean Platelet Vol. 10.6 fl (6.2-12.0); Monocyte# 0.84 X10^3/uL; NRBC Flagged by Analyzer 0 % (0-5); Neutrophil # 6.61 X10^3/uL (2.7-7.7); Neutrophil % 70.8 % (47-70); Platelet Count 197 K/mm3 (150-450); RBC Distribution Width CV 15.3 % (11.6-14.6); RBC Distribution Width SD 50.4 fl (35.1-43.9); Red Blood Count 3.93 M/mm3 (4.2-5.4); White Blood Count 9.3 K/mm3 (4.4-11.0)
[2023-12-31 07:48] LABS: Anion Gap 3 (5-15); BUN 28 mg/dL (7-18); BUN/Creat Ratio 41.9 RATIO (10-20); Calcium,Total 9.3 mg/dL (8.5-10.1); Chloride 104 mmol/L (98-107); Creatinine, Serum 0.67 mg/dL (0.55-1.02); EST Glomerular Filtration Rate 95 mL/min (>60); Est Glom Filt Rate - Afr Amer 114 mL/min (>60); Estimated Creatinine Clearance 102.06 ml/min; Glucose 125 mg/dL (74-106); Potassium 3.5 mmol/L (3.5-5.1); Sodium Level 142 mmol/L (136-145)
[2023-12-31] MEDS: ARIPiprazole 2 MG Tablet PO (08:36)
[2023-12-31] MEDS: Escitalopram Oxalate 20 MG Tablet PO (08:37)
[2023-12-31] MEDS: levETIRAcetam 750 MG Tablet PO ×2 (08:37→21:26)
[2023-12-31] MEDS: Fenofibrate 48 MG Tablet PO (08:37)
[2023-12-31] MEDS: Pantoprazole Sodium 40 MG Tablet PO (08:37)
[2023-12-31] MEDS: Nystatin Powder 15gm Bottle 1 APPLIC TOPICAL ×3 (08:38→21:26)
[2023-12-31] MEDS: Benztropine Mesylate 0.5 MG TABLET PO ×2 (08:38→21:26)
[2023-12-31] MEDS: Heparin Injection (Vial) 5,000 UNIT/ML VIAL 5000 UNIT SC ×2 (08:38→21:26)
--- NOTE | 2023-12-31 09:37 | CASEMGMT ---
Social Work- Pt has directives on chart naming Amelia Green, sister, as HCPOA. CELESTINA Blackwood
--- NOTE | 2023-12-31 09:49 | CASEMGMT ---
Social Work- SW completed SDOH. Pt states that she receives PT and nursing services at home. SW called Caar Powell, [facility] to advise of hospitalization. Cara: [phone]. Pt has medical alert. RNCM advised that pt has previous services at last discharge with [facility] and [facility]. Pt requested transportation resources, which were provided to pt by MYAH. CELESTINA Blackwood
--- NOTE | 2023-12-31 13:07 | PN.HOSP_ITS ---
Subjective Subjective Doing well, no issues overnight. Blood pressures this morning were in the mid to high 90s systolic no dizziness. Objective Data Objective Data Vital Signs: Vital Signs Temp Pulse Resp BP Pulse Ox O2 Del Method O2 Flow Rate 97.6 F L 72 20 H 96/63 96 Nasal Cannula 3 12/31/23 08:31 12/31/23 08:31 12/31/23 08:31 12/31/23 08:31 12/31/23 08:31 12/31/23 08:40 12/31/23 08:40 Oxygen Flow Rate (L/min) 3 Oxygen Delivery Method Nasal Cannula Weight: 218 lb 7.649 oz Body Mass Index (BMI) 35.2 Intake & Output: Intake and Output for Last 24 Hours 12/30/23 12/31/23 01/01/24 03:59 03:59 03:59 Intake Total 1590 / 1590 957.5 / 957.5 Balance 1590 / 1590 957.5 / 957.5 Lab / Micro Data 12/31/23 06:39 12/31/23 06:39 Labs: Laboratory Results - last 24 hr 12/30/23 14:55: WBC 9.9, RBC 4.23, Hgb 11.2 L, Hct 38.3, MCV 90.5, MCH 26.5 L, M CHC 29.2 L, RDW Std Deviation 51.6 H, RDW Coeff of Dyana 15.7 H, Plt Count 219, MPV 10.8, Immature Gran % (Auto) 0.500, Neut % (Auto) 84.4 H, Lymph % (Auto) 10.0 L, Russell % (Auto) 3.7, Eos % (Auto) 1.0, Baso % (Auto) 0.4, Absolute Neuts (auto) 8.3 H, Absolute Lymphs (auto) 0.99, Nucleated RBC % 0, PT 13.0, INR 1.0, APTT 27.6, Sodium 141, Potassium 3.5, Chloride 100, Carbon Dioxide 37.0 H, Anion Gap 4 L, BUN 33 H, Creatinine 1.00, Estim Creat Clear Calc 69.72, Est GFR (MDRD) Af Amer 72, Est GFR (MDRD) Non-Af 59 L, BUN/Creatinine Ratio 33.0 H, Glucose 163 H, Calcium 9.4 12/30/23 15:57: Lactic Acid 2.4 H* 12/30/23 17:37: Urine Color Yellow, Urine Clarity Clear, Urine pH 6.0, Ur Specific [place] 1.015, Urine Protein Negative, Urine Glucose (UA) Normal, Urine Ketones Negative, Urine Occult Blood Negative, Urine Nitrite Negative, Urine Bilirubin Negative, Urine Urobilinogen Normal, Ur Leukocyte Esterase Negative, Urine RBC 0 SEEN, Urine WBC 0 SEEN, Ur Squamous Epith Cells 0 SEEN, Urine Bacteria 0 SEEN, Urine Mucus 0 SEEN 12/30/23 21:02: Lactic Acid 1.3 12/31/23 06:39: WBC 9.3, RBC 3.93 L, Hgb 10.5 L, Hct 35.4 L, MCV 90.1, MCH 26.7 L, MCHC 29.7 L, RDW Std Deviation 50.4 H, RDW Coeff of Dyana 15.3 H, Plt Count 197, MPV 10.6, Immature Gran % (Auto) 0.700, Neut % (Auto) 70.8 H, Lymph % (Auto) 17.6 L, Russell % (Auto) 9.0, Eos % (Auto) 1.5, Baso % (Auto) 0.4, Absolute Neuts (auto) 6.6, Absolute Lymphs (auto) 1.64, Nucleated RBC % 0, Sodium 142, Potassium 3.5, Chloride 104, Carbon Dioxide 35.0 H, Anion Gap 3 L, BUN 28 H, Creatinine 0.67, Estim Creat Clear Calc 102.06, Est GFR (MDRD) Af Amer 114, Est GFR (MDRD) Non-Af 95, BUN/Creatinine Ratio 41.9 H, Glucose 125 H, Calcium 9.3 Micro: Microbiology 12/30/23 Unknown Mucosa - Nose SARS-CoV-2, Influenza & RSV (PCR) - Final ABG Data ABG results: ABG 12/30/23 16:14 Specimen Type EDNA Sample Site Not entered VBG pH 7.37 VBG pO2 46 H VBG HCO3 35 H VBG Total CO2 37 H VBG O2 Sat (Calc) 79 H VBG Base Excess 10 H POC Mix VBG pCO2 Pt Tmp 60.9 H O2 Delivery Device Cannula Radiography Diagnostic Testing: Radiology Impression Chest X-Ray 12/30/23 15:40 IMPRESSION: Minimal subsegmental atelectasis or scarring in both lower lobes. Electronically Signed: Demetrius Bruno MD at 16:48 EDT , Physical Exam Narrative General: Alert, Oriented x3, Cooperative, No apparent distress HEENT: Atraumatic, PERRLA, EOMI, Normocephalic Oral: Moist Mucosa Neck: Supple, No JVD Lungs: Diminished, Normal air movement, scattered rhonchi, No wheeze, No rales Cardiovascular: Regular rate, Regular Rhythm, Normal S1, Normal S2, No murmurs Abdomen: Soft, Non Tender, Non-Distended, No Hepato-splenomegaly Extremities: Trace edema, Capillary Refill Less than 3 Seconds Skin: No rashes, No breakdown Musculoskeletal: No Tenderness to Palpation of Joints or Extremities Neurological: No focal neurological deficits, Motor Exam 5/5 strength throughout, Sensory exam intact to light touch and pain Psych/Mental Status: Flat Assessment & Plan Assessment/Plan (1) Transient hypotension: PLAN: Plan 1. Transient hypotension/essential HTN/HLD ? Blood pressures have been variable over the last couple days, there is no obvious source at this time as she does not appear to have an infection ? COVID and flu are ruled out ? She did have an echo in the last 6 months with an EF of 60% and moderate hypertrophy right ventricle with mild to moderate global right ventricular systolic dysfunction ? Will hold her blood pressure medications ? Will get an a.m. cortisol ? If no obvious source for the transient hypotension is found may need to be on a low-dose midodrine 2. Chronic hypoxic respiratory failure secondary to COPD ? She is on her baseline oxygen of 3 L nasal cannula ? Continue with her home inhalers 3. Seizure disorder/nerve pain ? Stable ? Continue with her home medications 4. Anxiety/depression ? Stable ? Continue with her home medications 5. GERD ? Stable ? Continue with PPI DVT: Heparin Charges/Coding Visit Charges Inpatient E&M: 20994 Subs Hosp L2
[2023-12-31] MEDS: busPIRone 5 MG Tablet PO ×2 (13:35→21:26)
--- NOTE | 2023-12-31 15:05 | CASEMGMT ---
Social Work- Cara Garcia visited pt in hospital and met with SW to coordinate on pt care. SW asked for clarification on aide care. Cara advised that [facility] was non-skilled provider, who there was a mix-up with and stopped coming. Cara attempted to reconnect pt with aide services, however, [facility] has had low staffing and is uncertain if they can resume services. Cara asks to be notified of discharge for resumption of services. SW will continue to remain available for any needs and coordination needed. CELESTINA Blackwood
--- NOTE | 2023-12-31 16:14 | CHAPLAIN ---
Type of Pastoral Visit ___ Initial Visit ___ Follow-up Visit ___ On-call Visit ___ General Patient Visit ___ Spiritual Assessment ___ Family Conference ___ Bereavement ___ Rapid Response ___ Code Blue ___ Other (describe below) Pastoral Care Referral From ___ Patient ___ Family ___ Nurse ___ Physician ___ Blade Grinder ___ Case Coordinator ___ Other (describe below) Sacrament/Intervention ___ Active listening ___ Anointing ___ Sikhism ___ Bereavement ___ Communion ___ Monika exploration ___ ___ Life review ___ Prayer ___ Reconciliation ___ Sacrament of Sick ___ Supportive presence ___ Wedding ___ Other (describe below) Pastoral Comments patient was busy at the time of attempted visit; will try again tomorrow
[2023-12-31] MEDS: Calcium Carbonate 500 MG Tablet 1000 MG PO (16:51)
[2023-12-31] MEDS: Baclofen 10 MG Tablet PO (21:26)
[2023-12-31] MEDS: Mirtazapine 15 MG Tablet 7.5 MG PO (21:27)
[2024-01-01] VITALS (8 sets, daily range): BP systolic 109–159; BP diastolic 73–91; PULSE 69–89; RESP 18; TEMP 36.7–37.1; O2SAT 92–100
[2024-01-01] MEDS: busPIRone 5 MG Tablet PO (05:35)
[2024-01-01] MEDS: Pregabalin 75 MG Capsule PO (05:36)
[2024-01-01 06:15] LABS: Absolute Lymphocyte Count 2.41 X10^3/uL (0.83-4.51); Absolute Neutrophil Count 5.5 X10^3/uL (2.0-7.7); Basophil# 0.05 X10^3/uL; Basophil% 0.6 % (0-1); Eosinophil# 0.14 X10^3/uL; Eosinophils% 1.6 % (0-5); Hematocrit 34.5 % (37-47); Hemoglobin 10.3 g/dL (12.0-15.0); Lymphocyte # 2.41 X10^3/ul (0.83-4.51); Lymphocyte % 27.6 % (19-41); Mean Corp Hgb Conc 29.9 g/dL (32-36); Mean Corpuscular Hgb 26.7 pg (27.0-32.0); Mean Corpuscular Volume 89.4 fL (81-99); Mean Platelet Vol. 10.3 fl (6.2-12.0); Monocyte# 0.56 X10^3/uL; Monocyte% 6.4 % (0-10); NRBC Flagged by Analyzer 0 % (0-5); Neutrophil # 5.52 X10^3/uL (2.7-7.7); Neutrophil % 63.1 % (47-70); Platelet Count 205 K/mm3 (150-450); RBC Distribution Width CV 15.3 % (11.6-14.6); RBC Distribution Width SD 50.2 fl (35.1-43.9); Red Blood Count 3.86 M/mm3 (4.2-5.4); White Blood Count 8.7 K/mm3 (4.4-11.0)
[2024-01-01 06:38] LABS: Anion Gap 6 (5-15); BUN 23 mg/dL (7-18); BUN/Creat Ratio 29.7 RATIO (10-20); Calcium,Total 9.5 mg/dL (8.5-10.1); Chloride 100 mmol/L (98-107); Creatinine, Serum 0.77 mg/dL (0.55-1.02); EST Glomerular Filtration Rate 80 mL/min (>60); Est Glom Filt Rate - Afr Amer 97 mL/min (>60); Glucose 155 mg/dL (74-106); Potassium 3.5 mmol/L (3.5-5.1); Sodium Level 139 mmol/L (136-145)
[2024-01-01] MEDS: Budesonide Respules 0.5 MG/2 ML AMPUL.NEB. INHALATION (07:09)
[2024-01-01] MEDS: Ipratropium/Albuterol Sulfate 3 ML AMPUL.NEB INHALATION ×2 (07:09→10:43)
[2024-01-01] MEDS: Heparin Injection (Vial) 5,000 UNIT/ML VIAL 5000 UNIT SC (09:44)
[2024-01-01] MEDS: Fenofibrate 48 MG Tablet PO (09:44)
[2024-01-01] MEDS: levETIRAcetam 750 MG Tablet PO (09:44)
[2024-01-01] MEDS: Benztropine Mesylate 0.5 MG TABLET PO (09:44)
[2024-01-01] MEDS: Escitalopram Oxalate 20 MG Tablet PO (09:44)
[2024-01-01] MEDS: ARIPiprazole 2 MG Tablet PO (09:44)
[2024-01-01] MEDS: Pantoprazole Sodium 40 MG Tablet PO (09:44)
[2024-01-01] MEDS: Clotrimazole 1 APPLIC Tube TOPICAL (10:14)
--- NOTE | 2024-01-01 12:12 | CASEMGMT ---
Patient has order for discharge. [facility] is [facility], RN CM updated of discharge and visit planned for Thursday. RN CM in to discuss needs at discharge. Patient has oxygen tank for at discharge and states she has transportation home. Patient denied further needs at this time. Patient is also active with [facility].
--- NOTE | 2024-01-01 12:17 | PCM.DC ---
Discharge Instructions Diet Discharge Diet: Low fat / Low cholesterol and 6 Cup Fluid Restriction Activity Discharge Activity: Return to Normal Activity Dressing / Incision Call your doctor if you observe: Fever of 101 or Higher, Shortness of breath, Dizziness, Fainting spells, Swelling in the ankles, Chest pain and Increased palpitations (irregular heartbeat) Follow Up Care Test Results: Test results from this visit will be discussed in further detail at your follow-up appointment, if applicable. Discharge Plan Admission Admit Date/Time: 12/30/23 18:24 Attending Provider: Chalino Tello Primary Care Provider: Nick Lindsey Consulting Providers: Daniel Mireles Discharge Orders/Prescriptions Prescriptions: Continued (DME) Blood Pressure Cuff Misc See Rx Instructions .Route Qty: 1 0RF Rx Instructions: Check blood pressure twice a day (DME) compress.stocking,knee,reg,lrg Misc See Rx Instructions .MEDSUPPLY Qty: 2 1RF Rx Instructions: wear daily for venous insufficiency 20-30 mmHg aripiprazole 2 mg tablet 2 mg PO DAILY Qty: 90 1RF escitalopram oxalate 20 mg tablet 20 mg PO DAILY Qty: 90 1RF (DME) compress.stocking,knee,reg,lrg Misc See Rx Instructions .ROUTE .MEDSUPPLY Qty: 2 0RF Rx Instructions: As directed (DME) nebulizers [Altera Nebulizer System] Misc See Rx Instructions .Route Qty: 1 0RF Rx Instructions: As directed (DME) MediHoney (hetal alginate-honey) 2 X 2 bandage See Rx Instructions .Route Qty: 10 1RF Rx Instructions: As directed benztropine 1 mg tablet 0.5 mg PO BID baclofen 20 mg tablet 20 mg PO TID PRN (Reason: Spasms) pregabalin 75 mg capsule 75 mg PO TID 3 Days Qty: 9 0RF buprenorphine 20 mcg/hour patch weekly 1 patch topical QWEEK Qty: 1 0RF (DME) walker Misc See Rx Instructions .ROUTE .MEDSUPPLY Qty: 1 0RF Rx Instructions: rollator with wheels and a seat fenofibrate nanocrystallized 48 mg tablet 48 mg PO DAILY Qty: 90 3RF (DME) Ultra-Light Rollator Misc See Rx Instructions .Route Qty: 1 0RF Rx Instructions: As directed Breztri Aerosphere 160-9-4.8 mcg/actuation HFA aerosol inhaler 2 inh inhalation BID Qty: 3 3RF (DME) Handicap Placard See Rx Instructions .ROUTE .MEDSUPPLY Qty: 1 0RF Rx Instructions: As directed, length of time 3 years mirtazapine 15 mg tablet 15 mg PO QHS Qty: 90 1RF (DME) nebulizer and compressor Device See Rx Instructions .Route Qty: 1 2RF Rx Instructions: As directed (DME) blood pressure monitor Kit See Rx Instructions .MEDSUPPLY Qty: 1 0RF Rx Instructions: Check blood pressure daily for hypertension I10 buspirone 5 mg tablet 5 mg PO TID Qty: 270 0RF levetiracetam 750 mg tablet 750 mg PO BID Qty: 180 1RF omeprazole 40 mg capsule,delayed release(DR/EC) 40 mg PO DAILY Qty: 90 1RF Changed furosemide 40 mg tablet 20 mg PO DAILY Qty: 30 0RF lisinopril 20 mg Tablet 10 mg PO DAILY Qty: 60 0RF Referrals / Follow Up: Nick Lindsey MD [Primary Care Provider] - Within 1 Week Disposition Disposition (needs filled in before D/C Order can be placed): Home, Self Care
--- NOTE | 2024-01-01 12:47 | DS.PCM_ITS ---
Providers Date of Admission: 12/30/23 Primary Care Physician: Dr. Nick Lindsey MD Reason For Visit: TRANSIENT HYPOTENSION Diagnosis Discharge Diagnosis (1) Transient hypotension: Status: Acute Code(s): I95.9 - Hypotension, unspecified Medications at Discharge Home Medications walker #1 ea 10/05/20 miscellaneous medical supply (Blood Pressure Cuff) #1 ea 05/06/22 compress.stocking,knee,reg,lrg #2 ea 03/19/23 fenofibrate nanocrystallized 48 mg tablet 48 mg PO DAILY CHOLESTEROL #90 tabs 04/07/23 walker (Ultra-Light Rollator misc) #1 ea 04/09/23 budesonide 160 mcg-glycopyr 9 mcg-formot 4.8 mcg/actuation HFA inhaler (Breztri Aerosphere) 2 inh inhalation BID breathing #3 ea 06/10/23 Handicap Placard #1 ea 07/29/23 aripiprazole 2 mg tablet 2 mg PO DAILY mental health #90 tabs 08/17/23 baclofen 20 mg tablet 20 mg PO TID PRN Spasms 09/25/23 compress.stocking,knee,reg,lrg #2 ea 10/02/23 escitalopram oxalate 20 mg tablet 20 mg PO DAILY DEPRESSION #90 tabs 10/02/23 buprenorphine 20 mcg/hour weekly transdermal patch 1 patch topical QWEEK Chronic pain #1 ea 10/07/23 pregabalin 75 mg capsule 75 mg PO TID nerve pain 3 days #9 caps 10/07/23 mirtazapine 15 mg tablet 15 mg PO QHS depression #90 TABLETS 10/13/23 calcium alginate-honey 2 X 2 bandage (MediHoney (calcium alginate-honey)) #10 ea 10/22/23 nebulizers ([employer] Nebulizer System) #1 ea 10/22/23 nebulizer and compressor #1 ea 11/18/23 benztropine 1 mg tablet 0.5 mg PO BID parkinsons 11/29/23 blood pressure monitor #1 ea 12/23/23 buspirone 5 mg tablet 5 mg PO TID depression #270 tabs 12/28/23 levetiracetam 750 mg tablet 750 mg PO BID seizures #180 tabs 12/28/23 omeprazole 40 mg capsule,delayed release 40 mg PO DAILY GERD #90 caps 12/28/23 furosemide 40 mg tablet 20 mg (1/2 x 40 mg) PO DAILY #30 tabs 01/01/24 lisinopril 20 mg tablet 10 mg (1/2 x 20 mg) PO DAILY #60 tabs 01/01/24 Hospital Course Operations None Procedures None Summary of Care Provided Minutes Spent on Discharge: 35 Hospital Course: Per HPI: CASI APARICIO, is a 63 F who has home health aide coming to check and was found hypotensive for last 2 days. She stated her blood pressure was 80/50 and was taking days. She stopped taking antihypertensive medication because of low blood pressure but blood pressure is still low. She was also having intermittent symptoms of dizziness, fatigue and feeling like she fell down but she was careful and did not had fall or syncope. She has chronic shortness of breath because of COPD and on home oxygen but denies any more than her usual shortness of breath. She is on oxygen /. She denies any history of heart disease but is stated she was started on water pill for leg swelling and leg swelling is better EMS also noted blood pressure low and orthostatic. EMS vitals were blood pressure 98/76, heart rate 80-145/min, A-fib with RVR. In ED blood pressure improved, 119/70-1 25/74. Heart rate in 70s. Patient on 3 L of oxygen pulse ox 99%. Twelve-lead EKG shows sinus arrhythmia 81 beats per 1, QRS 109 6-second, QTc 430 ms, low voltage QRS complexes with LAD. EMS EKG was also sinus rhythm with first-degree AV block. Previous EKG on December 14, 2023 was normal sinus rhythm. Patient is further admitted Hospital Course: 1. Transient hypotension/essential HTN/HLD?63-year-old female presents from home due to intermittent episodes of hypotension. She does also have times of high blood pressure as well. She is on Lasix 40 mg daily as well as lisinopril 20 mg daily at baseline at home as well as multiple other psychiatric medications that could also lower blood pressure. No signs of infection were noted during her admission and I did obtain an a.m. cortisol level which was normal. Orthostatic vital signs were unremarkable today and she did not need any increase in oxygen with ambulation. I discussed with her the possibility that she may be having too high dose of blood pressure medications at home so I discussed with her the possibility for discharge today and she expressed understanding the risk methods going home and would like to go home today. Will decrease her Lasix to 20 mg daily and her lisinopril to 10 mg daily we also discussed the need to weigh herself every day and that if she gains 2 or 3 pounds in a 24-hour period that she is to take an extra Lasix and call her doctor. Of note she did have an echo in September with an EF of 60% and moderate right ventricular dysfunction and hypertrophy. 2. Chronic hypoxic respiratory failure secondary to COPD, seizure disorder, nerve pain, anxiety, depression, GERD are all chronic medical conditions which complicate her care. Her home medications were continued where appropriate Physical Exam Narrative General: Alert, Oriented x3, Cooperative, No apparent distress HEENT: Atraumatic, PERRLA, EOMI, Normocephalic Oral: Moist Mucosa Neck: Supple, No JVD Lungs: Diminished, Normal air movement, scattered rhonchi, No wheeze, No rales Cardiovascular: Regular rate, Regular Rhythm, Normal S1, Normal S2, No murmurs Abdomen: Soft, Non Tender, Non-Distended, No Hepato-splenomegaly Extremities: Trace edema, Capillary Refill Less than 3 Seconds Skin: No rashes, No breakdown Musculoskeletal: No Tenderness to Palpation of Joints or Extremities Neurological: No focal neurological deficits, Motor Exam 5/5 strength throughout, Sensory exam intact to light touch and pain Psych/Mental Status: Normal affect Weight / BMI Weight Weight: 218 lb 7.649 oz Body Mass Index (BMI) 35.2 ABG / Lab / Microbiology Data 01/01/24 05:37 01/01/24 05:37 Laboratory: Laboratory Results - last 24 hr 01/01/24 05:37: WBC 8.7, RBC 3.86 L, Hgb 10.3 L, Hct 34.5 L, MCV 89.4, MCH 26.7 L, MCHC 29.9 L, RDW Std Deviation 50.2 H, RDW Coeff of Dyana 15.3 H, Plt Count 205, MPV 10.3, Immature Gran % (Auto) 0.700, Neut % (Auto) 63.1, Lymph % (Auto) 27.6, [place] % (Auto) 6.4, Eos % (Auto) 1.6, Baso % (Auto) 0.6, Absolute Neuts (auto) 5.5, Absolute Lymphs (auto) 2.41, Nucleated RBC % 0, Sodium 139, Potassium 3.5, Chloride 100, Carbon Dioxide 33.0 H, Anion Gap 6, BUN 23 H, Creatinine 0.77, Estim Creat Clear Calc 88.80, Est GFR (MDRD) Af Amer 97, Est GFR (MDRD) Non-Af 80, BUN/Creatinine Ratio 29.7 H, Glucose 155 H, Calcium 9.5, Cortisol 4.90 Microbiology: Microbiology 12/30/23 Unknown Mucosa - Nose SARS-CoV-2, Influenza & RSV (PCR) - Final D/C Instructions Discharge Diet: Low fat / Low cholesterol and 6 Cup Fluid Restriction Call your doctor if you observe: Fever of 101 or Higher, Shortness of breath, Dizziness, Fainting spells, Swelling in the ankles, Chest pain and Increased palpitations (irregular heartbeat) Meaningful Use Info Meaningful Use Meaningful Use Diagnoses (Choose all that apply): None applicable Ischemic Stroke Statin Dosing Therapy Reference: STATIN DOSE THERAPY REFERENCE: * Patients > 75 years receive moderate or high dose statin therapy. * Patients 75 years or YOUNGER should receive HIGH intensity statin dose unless contraindicated. You will be required to document reason for non-treatment if statin daily dose does not meet guidelines. HIGH DOSE STATIN THERAPY DAILY Atorvastatin > than or = to 40 mg Rosuvastatin > than or = to 20 mg Amlodipine + Atorvastatin > than or = to 2.5/40 mg Ezetimibe + Simvastatin 10/80 mg Simvastatin 80mg Discharge Plan Admission Admit Date/Time: 12/30/23 18:24 Attending Provider: Chalino Tello Primary Care Provider: Nick Lindsey Consulting Providers: Daniel Mireles Discharge Orders/Prescriptions Prescriptions: Continued (DME) Blood Pressure Cuff Misc See Rx Instructions .Route Qty: 1 0RF Rx Instructions: Check blood pressure twice a day (DME) compress.stocking,knee,reg,lrg Misc See Rx Instructions .MEDSUPPLY Qty: 2 1RF Rx Instructions: wear daily for venous insufficiency 20-30 mmHg aripiprazole 2 mg tablet 2 mg PO DAILY Qty: 90 1RF escitalopram oxalate 20 mg tablet 20 mg PO DAILY Qty: 90 1RF (DME) compress.stocking,knee,reg,lrg Misc See Rx Instructions .ROUTE .MEDSUPPLY Qty: 2 0RF Rx Instructions: As directed (DME) nebulizers [Altera Nebulizer System] Mis See Rx Instructions .Route Qty: 1 0RF Rx Instructions: As directed (DME) Teresa (hetal alginate-honey) 2 X 2 bandage See Rx Instructions .Route Qty: 10 1RF Rx Instructions: As directed benztropine 1 mg tablet 0.5 mg PO BID baclofen 20 mg tablet 20 mg PO TID PRN (Reason: Spasms) pregabalin 75 mg capsule 75 mg PO TID 3 Days Qty: 9 0RF buprenorphine 20 mcg/hour patch weekly 1 patch topical QWEEK Qty: 1 0RF (DME) walker [facility] See Rx Instructions .ROUTE .MEDSUPPLY Qty: 1 0RF Rx Instructions: rollator with wheels and a seat fenofibrate nanocrystallized 48 mg tablet 48 mg PO DAILY Qty: 90 3RF (DME) Ultra-Light Rollator [facility] See Rx Instructions .Route Qty: 1 0RF Rx Instructions: As directed Breztri Aerosphere 160-9-4.8 mcg/actuation HFA aerosol inhaler 2 inh inhalation BID Qty: 3 3RF (DME) Handicap Placard See Rx Instructions .ROUTE .MEDSUPPLY Qty: 1 0RF Rx Instructions: As directed, length of time 3 years mirtazapine 15 mg tablet 15 mg PO QHS Qty: 90 1RF (DME) nebulizer and compressor Device See Rx Instructions .Route Qty: 1 2RF Rx Instructions: As directed (DME) blood pressure monitor Kit See Rx Instructions .MEDSUPPLY Qty: 1 0RF Rx Instructions: Check blood pressure daily for hypertension I10 buspirone 5 mg tablet 5 mg PO TID Qty: 270 0RF levetiracetam 750 mg tablet 750 mg PO BID Qty: 180 1RF omeprazole 40 mg capsule,delayed release(DR/EC) 40 mg PO DAILY Qty: 90 1RF Changed furosemide 40 mg tablet 20 mg PO DAILY Qty: 30 0RF lisinopril 20 mg Tablet 10 mg PO DAILY Qty: 60 0RF Referrals / Follow Up: Nick Lindsey MD [Primary Care Provider] - Within 1 Week Ferullo,Nu, SURGICAL CONSULTANT-C [Med Staff - Adv Practice Prof] - 01/07/24 11:30 am (Dr. Lindsey did not have an opening within wanted time frame, appointment made with a Nurse Practitioner in his office. ) Disposition Disposition (needs filled in before D/C Order can be placed): Home, Self Care Charges/Coding Visit Charges Inpatient E&M: 80587 Disch Hosp >30min
--- NOTE | 2024-01-01 12:53 | CASEMGMT ---
Social Work- SW faxed discharge instructions to [facility] and followed up with a phone call, leaving a voicemail. CELESTINA Blackwood
--- NOTE | 2024-01-01 13:02 | PHA.DC.MR.R ---
Pharmacy [place] Med Reconciliation Pharmacy Service has performed discharge medication reconciliation for this patient. The patient's discharge medication list was reviewed for discrepancies and discrepancies were resolved. Medications at Discharge Home Medications walker #1 ea 10/05/20 miscellaneous medical supply (Blood Pressure Cuff) #1 ea 05/06/22 compress.stocking,knee,reg,lrg #2 ea 03/19/23 fenofibrate nanocrystallized 48 mg tablet 48 mg PO DAILY CHOLESTEROL #90 tabs 04/07/23 walker (Ultra-Light Rollator misc) #1 ea 04/09/23 budesonide 160 mcg-glycopyr 9 mcg-formot 4.8 mcg/actuation HFA inhaler (Breztri Aerosphere) 2 inh inhalation BID breathing #3 ea 06/10/23 Handicap Placard #1 ea 07/29/23 aripiprazole 2 mg tablet 2 mg PO DAILY mental health #90 tabs 08/17/23 baclofen 20 mg tablet 20 mg PO TID PRN Spasms 09/25/23 compress.stocking,knee,reg,lrg #2 ea 10/02/23 escitalopram oxalate 20 mg tablet 20 mg PO DAILY DEPRESSION #90 tabs 10/02/23 buprenorphine 20 mcg/hour weekly transdermal patch 1 patch topical QWEEK Chronic pain #1 ea 10/07/23 pregabalin 75 mg capsule 75 mg PO TID nerve pain 3 days #9 caps 10/07/23 mirtazapine 15 mg tablet 15 mg PO QHS depression #90 TABLETS 10/13/23 calcium alginate-honey 2 X 2 bandage (MediHoney (calcium alginate-honey)) #10 ea 10/22/23 nebulizers ([employer] Nebulizer System) #1 ea 10/22/23 nebulizer and compressor #1 ea 11/18/23 benztropine 1 mg tablet 0.5 mg PO BID parkinsons 11/29/23 blood pressure monitor #1 ea 12/23/23 buspirone 5 mg tablet 5 mg PO TID depression #270 tabs 12/28/23 levetiracetam 750 mg tablet 750 mg PO BID seizures #180 tabs 12/28/23 omeprazole 40 mg capsule,delayed release 40 mg PO DAILY GERD #90 caps 12/28/23 furosemide 40 mg tablet 20 mg (1/2 x 40 mg) PO DAILY #30 tabs 01/01/24 lisinopril 20 mg tablet 10 mg (1/2 x 20 mg) PO DAILY #60 tabs 01/01/24
== END 2024-01-01 12:46 | disposition home health service (06) ==
LOC: ED 18:09 → PCU 18:36
PROVIDERS: Admitting Provider Internal Medicine; Emergency Provider Emergency Medicine; PCP Internal Medicine; Visit Provider Family Medicine
DX: I95.9 Hypotension, unspecified (principal); J96.11 Chronic respiratory failure with hypoxia; J44.9 Chronic obstructive pulmonary disease, unspecified; I48.91 Unspecified atrial fibrillation; G40.909 Epilepsy, unspecified, not intractable, without status epilepticus; R53.83 Other fatigue; I10 Essential (primary) hypertension; E66.9 Obesity, unspecified; I44.0 Atrioventricular block, first degree; Z68.36 Body mass index [BMI] 36.0-36.9, adult; I49.8 Other specified cardiac arrhythmias; G89.29 Other chronic pain; F41.9 Anxiety disorder, unspecified; E78.00 Pure hypercholesterolemia, unspecified; F17.210 Nicotine dependence, cigarettes, uncomplicated; R53.1 Weakness; E87.20 Acidosis, unspecified; Z99.81 Dependence on supplemental oxygen; Z79.899 Other long term (current) drug therapy
CPT/HCPCS: 36415; 71045; 80048; 81001; 82533; 82803; 83605; 85025; 85610; 85730; 87631; 93005; 94640; 96360; 96361; 96372; 97802; 99221; 99285; 99406; J7120; P9612; A4216; G0378